=== PATIENT | female | born 1950 | race Caucasian/White ===

== ENCOUNTER 2017-11-26 23:08 | Inpatient (IN) | payer OTHER, MEDICARE ==
[~2017-11-26] VITALS: Ht 170.2 cm; Wt 73.9 kg
[~2017-11-26 23:08] MED LIST: ASPI-1153 PO; LISI40TA4 PO; VERA120C2 PO
[2017-11-26 23:10] VITALS: BP_SYST 189
[2017-11-26] MEDS ORDERED: NACL 0.9% 1,000 ML IV ONE (23:30)
[2017-11-26 23:54] LABS: BASOPHILS # (AUTO) 0.5 K/uL (0.0-0.2); EOSINOPHILS # (AUTO) 0.1 K/uL (0.0-0.4); EOSINOPHILS % (AUTO) 0.9 % (0.0-4.0); HEMOGLOBIN 8.7 g/dL (12.0-16.0); LYMPHOCYTES # (AUTO) 1.1 K/uL (1.0-5.5); LYMPHOCYTES % (AUTO) 8.1 % (20.5-51.5); MEAN CORPUSCULAR HEMOGLOBIN 23 pg (27-31); MEAN CORPUSCULAR HGB CONC 31 % (32-36); MEAN CORPUSCULAR VOLUME 75 fL (79.0-98.0); MONOCYTES # (AUTO) 0.4 K/uL (0.0-1.0); MONOCYTES % (AUTO) 3.2 % (1.7-9.3); NEUTROPHILS # (AUTO) 10.9 K/uL (1.8-7.7); NEUTROPHILS % (AUTO) 83.8 % (40.0-70.0); PLATELET COUNT (AUTO) 249 K/uL (130-430); RED BLOOD CELL COUNT(AUTO) 3.74 MIL/uL (4.2-6.2); RED CELL DISTRIBUTION WIDTH 20.8 % (9.0-15.0)
[2017-11-27] VITALS (8 sets, daily range): BP systolic 121–156
[2017-11-27 00:04] LABS: ANION GAP 7 (5-15); CALCIUM 10.1 mg/dL (8.4-11.0); CHLORIDE 109 mmol/L (98-107); CREATININE 0.78 mg/dL (0.55-1.30); GLUCOSE 249 mg/dL (70-99); POTASSIUM 5.2 mmol/L (3.5-5.1); SODIUM SERUM 146 mmol/L (136-145); UREA NITROGEN, BLOOD 60 mg/dL (8-21)
[2017-11-27 00:09] LABS: ALANINE AMINOTRANSFERASE 36 U/L (12-78); ASPARTATE AMINOTRANSFERASE 33 U/L (10-37); INR 1.1 (0.8-1.2); TOTAL BILIRUBIN 0.4 mg/dL (0.0-1.0)
[2017-11-27 00:26] LABS: GFR AFRICAN AMERICAN 95 mL/min (>90)
[2017-11-27] MEDS ORDERED: levETIRAcetam 1,000 MG IV BAG 100 ML IV ONE (00:30)
[2017-11-27] MEDS ORDERED: ASPIRIN 81 MG TAB.CHEW PO ONE (00:30)
[2017-11-27] MEDS ORDERED: PIPERACILLIN/TAZO 3.375 GM in NS 50 ML IV ONE (00:30)
[2017-11-27] MEDS ORDERED: NACL 0.9% 2,000 ML IV ONE (00:30)
[2017-11-27 00:36] LABS: BILIRUBIN,URINE NEGATIVE (NEGATIVE); BLOOD, URINE NEGATIVE (NEGATIVE); CLARITY/URINE CLEAR (CLEAR); COLOR,URINE YELLOW (YELLOW); GLUCOSE,URINE TRACE (NEGATIVE); KETONES,URINE NEGATIVE (NEGATIVE); LEUKOCYTE ESTERASE ,URINE 2+ (NEGATIVE); NITRITE, URINE POSITIVE (NEGATIVE); PROTEIN URINE 2+ (NEGATIVE); UROBILINOGEN,URINE 0.2 (0.2-1.0)
[2017-11-27] MEDS ORDERED: PIPERACILLIN/TAZOBACTAM 3.375 GM/VIAL (ZOSYN) IV ONE (00:44)
[2017-11-27] MEDS ORDERED: LEVOFLOXACIN 500 MG/D5W 100 ML IV ONE (00:45)
[2017-11-27 00:47] LABS: BACTERIA,URINE MANY /HPF (None Seen); RBC,URINE 0-3 /HPF (0-3); WBC,URINE >100 /HPF (0-3)
[2017-11-27 00:48] LABS: URINE AMORPHOUS URATE 1+ /HPF (None Seen)
[2017-11-27] MEDS ORDERED: NACL 0.9% 1,000 ML IV SCH (00:54)
[2017-11-27] MEDS ORDERED: LORazepam 2 MG/ML VIAL IVP PRN (01:00)
[2017-11-27] MEDS ORDERED: SODIUM POLYSTYRENE SULFONATE 15 GM/60 ML UDBTL GT ONE (01:00)
[2017-11-27] MEDS ORDERED: CAT.1 PO (01:09)
[2017-11-27] MEDS ORDERED: ATRMDI INH (01:09)
[2017-11-27] MEDS ORDERED: [UNRECOGNIZED DRUG - OTHER] (01:09)
[2017-11-27] MEDS ORDERED: NUT.237L30 PO (01:09)
[2017-11-27] MEDS ORDERED: FER300L GT (01:11)
[2017-11-27] MEDS ORDERED: COLL100 GT (01:11)
[2017-11-27] MEDS ORDERED: AMIN30LI25 GT (01:29)
[2017-11-27] MEDS ORDERED: PRO40 GT (01:29)
[2017-11-27] MEDS ORDERED: ASCO500S9 GT (01:29)
[2017-11-27] MEDS ORDERED: LEVE100S GT (01:29)
[2017-11-27] MEDS ORDERED: REGL10 PO (01:29)
[2017-11-27] MEDS ORDERED: HYDR-4272 GT (01:29)
[2017-11-27] MEDS ORDERED: LACT10SO6 GT (01:29)
[2017-11-27] MEDS ORDERED: CALC-1094 GT (01:29)
[2017-11-27] MEDS ORDERED: ALBU2.5V7 INH (01:29)
[2017-11-27] MEDS ORDERED: ZINC220T GT (01:29)
[2017-11-27] MEDS ORDERED: CALC117719 PO (01:29)
[2017-11-27] MEDS ORDERED: MULT9LIQ6 GT (01:29)
[2017-11-27] MEDS ORDERED: ARGI1POW17 GT (01:29)
[2017-11-27] MEDS ORDERED: ACET650S22 PO (01:29)
[2017-11-27 05:53] LABS: ACETONE, SERUM NEGATIVE (NEGATIVE)
[2017-11-27] MEDS ORDERED: NS IV ONE (06:30)
[2017-11-27] MEDS ORDERED: LEVETIRACETAM IV ONE (06:30)
[2017-11-27] MEDS: INSULIN REGULAR, HUMAN 100 UNITS/ML, 10 ML VIAL (novoLIN R) SUBCUT PRN ×3 (12:53→23:17)
[2017-11-27] MEDS ORDERED: HYDROcodone/ACETAMIN 5-325 MG TAB (NORCO/ VICODIN) GT PRN (17:00)
[2017-11-27] MEDS ORDERED: DOCUSATE SODIUM 100 MG/10 ML UDC GT PRN (17:00)
[2017-11-27] MEDS ORDERED: ACETAMINOPHEN 650 MG/20.3 ML UDC PO PRN (17:00)
[2017-11-27] MEDS: FERROUS SULFATE 300 MG/5 ML UDC GT SCH (17:25)
[2017-11-27] MEDS: LevETIRAcetam 100 MG/ML UDC ORAL LIQUID GT SCH ×2 (17:26→22:55)
[2017-11-27 17:54] LABS: CALCIUM 8.6 mg/dL (8.4-11.0); CREATININE 0.7 mg/dL (0.55-1.30); POTASSIUM 3.4 mmol/L (3.5-5.1)
[2017-11-27 18:03] LABS: TOTAL BILIRUBIN 0.3 mg/dL (0.0-1.0)
[2017-11-27 18:04] LABS: ALBUMIN 2.4 g/dL (3.4-4.8)
[2017-11-27 18:08] LABS: HEMATOCRIT 26.1 % (36-48); MEAN CORPUSCULAR HEMOGLOBIN 23 pg (27-31); MEAN CORPUSCULAR HGB CONC 31 % (32-36); MEAN CORPUSCULAR VOLUME 76 fL (79.0-98.0); PLATELET COUNT (AUTO) 149 K/uL (130-430); RED BLOOD CELL COUNT(AUTO) 3.45 MIL/uL (4.2-6.2); RED CELL DISTRIBUTION WIDTH 20.8 % (9.0-15.0); WHITE BLOOD COUNT (AUTO) 10.2 K/uL (4.8-10.8)
[2017-11-27 18:09] LABS: BASOPHILS % (AUTO) 0.4 % (0.0-2.0); EOSINOPHILS # (AUTO) 0.2 K/uL (0.0-0.4); EOSINOPHILS % (AUTO) 1.7 % (0.0-4.0); LYMPHOCYTES # (AUTO) 0.9 K/uL (1.0-5.5); LYMPHOCYTES % (AUTO) 8.7 % (20.5-51.5); MONOCYTES # (AUTO) 0.4 K/uL (0.0-1.0); MONOCYTES % (AUTO) 4.3 % (1.7-9.3); NEUTROPHILS # (AUTO) 8.7 K/uL (1.8-7.7); NEUTROPHILS % (AUTO) 84.9 % (40.0-70.0)
[2017-11-27] MEDS ORDERED: POTASSIUM CHLORIDE 20 MEQ/PKT PACKET GT SCH (18:30)
[2017-11-27] MEDS: LR 1,000 ML IV SCH (18:35)
[2017-11-27] MEDS: ALBUTEROL SULFATE 0.083% 2.5 MG/3 ML VIAL.NEB INH SCH (19:37)
[2017-11-27] MEDS ORDERED: [UNRECOGNIZED DRUG - OTHER] GT SCH (21:00)
[2017-11-27] MEDS ORDERED: PIPERACILLIN/TAZOBACTAM 2.25 GM VIAL IV ONE (21:15)
[2017-11-27] MEDS: PIPERACILLIN/TAZO 2.25G/DEX-IS 50 ML IV SCH (21:30)
[2017-11-27] MEDS: LACTOBACILLUS RHAMNOSUS GG 1 CAP CAPSULE GT SCH (22:58)
[2017-11-27] MEDS: CALCIUM CARBONATE/VITAMIN D3 1 TAB TABLET GT SCH (22:58)
[2017-11-27] MEDS: PANTOPRAZOLE SODIUM 40 MG/VIAL (PROTONIX) IVP SCH (22:58)
[2017-11-27] MEDS: ASCORBIC ACID 500 MG TABLET GT SCH (22:58)
[2017-11-27] MEDS: LACTULOSE 20 GM/30 ML UDC GT SCH (22:59)
[2017-11-27] MEDS: METOCLOPRAMIDE HCL 10 MG/10 ML UDC PO SCH (22:59)
[2017-11-28] MEDS: PIPERACILLIN/TAZO 2.25G/DEX-IS 50 ML IV SCH ×5 (00:20→23:00)
[2017-11-28] MEDS: ALBUTEROL SULFATE 0.083% 2.5 MG/3 ML VIAL.NEB INH SCH ×4 (01:02→19:50)
[2017-11-28] MEDS: LR 1,000 ML IV SCH ×2 (06:18→15:06)
[2017-11-28] MEDS: INSULIN REGULAR, HUMAN 100 UNITS/ML, 10 ML VIAL (novoLIN R) SUBCUT PRN ×4 (06:34→21:49)
[2017-11-28 07:46] LABS: BASOPHILS # (AUTO) 0.1 K/uL (0.0-0.2); BASOPHILS % (AUTO) 0.6 % (0.0-2.0); EOSINOPHILS # (AUTO) 0.2 K/uL (0.0-0.4); EOSINOPHILS % (AUTO) 2.1 % (0.0-4.0); HEMATOCRIT 25.2 % (36-48); HEMOGLOBIN 7.6 g/dL (12.0-16.0); LYMPHOCYTES # (AUTO) 1.1 K/uL (1.0-5.5); LYMPHOCYTES % (AUTO) 13.1 % (20.5-51.5); MEAN CORPUSCULAR HEMOGLOBIN 23 pg (27-31); MEAN CORPUSCULAR HGB CONC 30 % (32-36); MEAN CORPUSCULAR VOLUME 76 fL (79.0-98.0); MONOCYTES # (AUTO) 0.3 K/uL (0.0-1.0); MONOCYTES % (AUTO) 3.6 % (1.7-9.3); NEUTROPHILS # (AUTO) 6.9 K/uL (1.8-7.7); NEUTROPHILS % (AUTO) 80.6 % (40.0-70.0); RED BLOOD CELL COUNT(AUTO) 3.33 MIL/uL (4.2-6.2); RED CELL DISTRIBUTION WIDTH 20.7 % (9.0-15.0); WHITE BLOOD COUNT (AUTO) 8.6 K/uL (4.8-10.8)
[2017-11-28 08:28] LABS: INR 1.1 (0.8-1.2); PROTHROMBIN TIME 11.1 SECS (9.5-12.5)
[2017-11-28 08:32] LABS: ALBUMIN 2.4 g/dL (3.4-4.8); CREATININE 0.7 mg/dL (0.55-1.30); FREE T4 (FREE THYROXINE) 0.5 ng/dL (0.6-1.6); POTASSIUM 3.7 mmol/L (3.5-5.1); THYROID STIMULATING HORMONE 2.07 uIu/mL (0.34-4.82); TOTAL BILIRUBIN 0.3 mg/dL (0.0-1.0)
[2017-11-28 10:11] VITALS: BP_SYST 166
[2017-11-28] MEDS: LACTOBACILLUS RHAMNOSUS GG 1 CAP CAPSULE GT SCH ×2 (10:14→21:44)
[2017-11-28] MEDS: ASCORBIC ACID 500 MG TABLET GT SCH ×2 (10:14→21:44)
[2017-11-28] MEDS: PANTOPRAZOLE GRANULES PACKET 40 MG GT SCH (10:14)
[2017-11-28] MEDS: PANTOPRAZOLE SODIUM 40 MG/VIAL (PROTONIX) IVP SCH ×2 (10:14→21:44)
[2017-11-28] MEDS: METOCLOPRAMIDE HCL 10 MG/10 ML UDC PO SCH ×3 (10:14→21:43)
[2017-11-28] MEDS: LACTULOSE 20 GM/30 ML UDC GT SCH ×2 (10:14→21:43)
[2017-11-28] MEDS: CALCIUM CARBONATE/VITAMIN D3 1 TAB TABLET GT SCH ×2 (10:14→21:44)
[2017-11-28] MEDS: MULTIVIT-MINERALS/FERROUS GLUC 15 ML UDC GT SCH (10:19)
[2017-11-28] MEDS: LevETIRAcetam 100 MG/ML UDC ORAL LIQUID GT SCH ×2 (10:21→23:01)
[2017-11-28 11:16] LABS: PLATELET COUNT (AUTO) 174 K/uL (130-430)
[2017-11-28] MEDS: FERROUS SULFATE 300 MG/5 ML UDC GT SCH ×2 (11:30→17:55)
[2017-11-28 12:39] VITALS: BP_SYST 143
[2017-11-28 14:28] LABS: TOTAL IRON BIND. CAPACITY 150 ug/dL (250-450)
[2017-11-28] MEDS ORDERED: EPOETIN ALFA 4,000 UNITS/ML VIAL SUBCUT ONE (17:00)
[2017-11-28 17:03] VITALS: BP_SYST 177
[2017-11-28] MEDS: KCL 20 mEq in 0.45% NS 1000 mL 1,000 ML IV SCH (17:55)
[2017-11-28] MEDS: SOD FERRIC GLUC COMPLEX/SUC 125 MG in NS 100 ML IV SCH (17:56)
[2017-11-28] MEDS: MUPIROCIN 2% TOPICAL OINTMENT 22 GM NS SCH ×2 (17:56→23:04)
[2017-11-28 20:00] VITALS: BP_SYST 148
[2017-11-29] MEDS: ALBUTEROL SULFATE 0.083% 2.5 MG/3 ML VIAL.NEB INH SCH ×4 (00:56→20:02)
[2017-11-29 01:16] VITALS: BP_SYST 161
[2017-11-29 06:31] LABS: BASOPHILS # (AUTO) 0.1 K/uL (0.0-0.2); BASOPHILS % (AUTO) 0.6 % (0.0-2.0); EOSINOPHILS # (AUTO) 0.2 K/uL (0.0-0.4); EOSINOPHILS % (AUTO) 2.6 % (0.0-4.0); HEMATOCRIT 26.5 % (36-48); HEMOGLOBIN 8.3 g/dL (12.0-16.0); LYMPHOCYTES # (AUTO) 1.3 K/uL (1.0-5.5); LYMPHOCYTES % (AUTO) 14.9 % (20.5-51.5); MEAN CORPUSCULAR HEMOGLOBIN 23 pg (27-31); MEAN CORPUSCULAR HGB CONC 31 % (32-36); MEAN CORPUSCULAR VOLUME 75 fL (79.0-98.0); MONOCYTES # (AUTO) 0.4 K/uL (0.0-1.0); MONOCYTES % (AUTO) 4.9 % (1.7-9.3); NEUTROPHILS # (AUTO) 6.4 K/uL (1.8-7.7); PLATELET COUNT (AUTO) 137 K/uL (130-430); RED BLOOD CELL COUNT(AUTO) 3.55 MIL/uL (4.2-6.2); WHITE BLOOD COUNT (AUTO) 8.4 K/uL (4.8-10.8)
[2017-11-29 06:45] LABS: CALCIUM 9.1 mg/dL (8.4-11.0); CREATININE 0.69 mg/dL (0.55-1.30); POTASSIUM 3.9 mmol/L (3.5-5.1)
[2017-11-29] MEDS: PIPERACILLIN/TAZO 2.25G/DEX-IS 50 ML IV SCH ×3 (06:55→17:22)
[2017-11-29] MEDS: FERROUS SULFATE 300 MG/5 ML UDC GT SCH ×3 (06:55→16:46)
[2017-11-29] MEDS: INSULIN REGULAR, HUMAN 100 UNITS/ML, 10 ML VIAL (novoLIN R) SUBCUT PRN ×4 (07:01→21:16)
[2017-11-29 07:37] LABS: RED CELL DISTRIBUTION WIDTH 20.3 % (9.0-15.0)
[2017-11-29 07:45] VITALS: BP_SYST 123
[2017-11-29] MEDS: MULTIVIT-MINERALS/FERROUS GLUC 15 ML UDC GT SCH (08:10)
[2017-11-29] MEDS: LACTOBACILLUS RHAMNOSUS GG 1 CAP CAPSULE GT SCH ×2 (08:10→21:17)
[2017-11-29] MEDS: ASCORBIC ACID 500 MG TABLET GT SCH ×2 (08:11→21:17)
[2017-11-29] MEDS: LACTULOSE 20 GM/30 ML UDC GT SCH ×2 (08:11→21:17)
[2017-11-29] MEDS: PANTOPRAZOLE SODIUM 40 MG/VIAL (PROTONIX) IVP SCH (08:11)
[2017-11-29] MEDS: CALCIUM CARBONATE/VITAMIN D3 1 TAB TABLET GT SCH ×2 (08:11→21:17)
[2017-11-29] MEDS: METOCLOPRAMIDE HCL 10 MG/10 ML UDC PO SCH ×3 (08:11→21:17)
[2017-11-29] MEDS: MUPIROCIN 2% TOPICAL OINTMENT 22 GM NS SCH ×2 (08:11→21:18)
[2017-11-29] MEDS: LevETIRAcetam 100 MG/ML UDC ORAL LIQUID GT SCH ×2 (08:12→21:19)
[2017-11-29] MEDS: PANTOPRAZOLE GRANULES PACKET 40 MG GT SCH (09:00)
[2017-11-29 09:24] LABS: RETICULOCYTE COUNT 0.9 % (0.5-1.5)
[2017-11-29] MEDS: KCL 20 mEq in 0.45% NS 1000 mL 1,000 ML IV SCH ×2 (09:48→22:18)
[2017-11-29] MEDS: BALSAM PERU/CASTOR OIL 60 GM OINT...G. TP SCH (09:48)
[2017-11-29 12:00] VITALS: BP_SYST 112
[2017-11-29 16:00] VITALS: BP_SYST 116
[2017-11-29] MEDS: SOD FERRIC GLUC COMPLEX/SUC 125 MG in NS 100 ML IV SCH (16:24)
[2017-11-29 20:00] VITALS: BP_SYST 139
[2017-11-30] MEDS: PIPERACILLIN/TAZO 2.25G/DEX-IS 50 ML IV SCH ×5 (00:08→20:19)
[2017-11-30 00:47] VITALS: BP_SYST 132
[2017-11-30] MEDS: ALBUTEROL SULFATE 0.083% 2.5 MG/3 ML VIAL.NEB INH SCH ×4 (00:51→19:26)
[2017-11-30] MEDS: FERROUS SULFATE 300 MG/5 ML UDC GT SCH ×3 (06:35→17:30)
[2017-11-30] MEDS: INSULIN REGULAR, HUMAN 100 UNITS/ML, 10 ML VIAL (novoLIN R) SUBCUT PRN ×4 (06:37→22:23)
[2017-11-30 09:23] VITALS: BP_SYST 132
[2017-11-30] MEDS: METOCLOPRAMIDE HCL 10 MG/10 ML UDC PO SCH ×3 (09:24→22:10)
[2017-11-30] MEDS: KCL 20 mEq in 0.45% NS 1000 mL 1,000 ML IV SCH (09:24)
[2017-11-30] MEDS: MULTIVIT-MINERALS/FERROUS GLUC 15 ML UDC GT SCH (09:25)
[2017-11-30] MEDS: LACTULOSE 20 GM/30 ML UDC GT SCH ×2 (09:25→22:10)
[2017-11-30] MEDS: LevETIRAcetam 100 MG/ML UDC ORAL LIQUID GT SCH ×2 (09:25→22:11)
[2017-11-30] MEDS: PANTOPRAZOLE GRANULES PACKET 40 MG GT SCH ×2 (09:26→22:09)
[2017-11-30] MEDS: CALCIUM CARBONATE/VITAMIN D3 1 TAB TABLET GT SCH ×2 (09:26→22:10)
[2017-11-30] MEDS: BALSAM PERU/CASTOR OIL 60 GM OINT...G. TP SCH (09:26)
[2017-11-30] MEDS: LACTOBACILLUS RHAMNOSUS GG 1 CAP CAPSULE GT SCH ×2 (09:26→22:10)
[2017-11-30] MEDS: ASCORBIC ACID 500 MG TABLET GT SCH ×2 (09:26→22:09)
[2017-11-30] MEDS: MUPIROCIN 2% TOPICAL OINTMENT 22 GM NS SCH ×2 (09:26→22:10)
[2017-11-30 10:18] VITALS: BP_SYST 184
[2017-11-30] MEDS: cloNIDine HCL 0.1 MG TABLET PO PRN (10:22)
[2017-11-30] MEDS ORDERED: FUROSEMIDE 20 MG/2 ML VIAL IVP ONE (10:45)
[2017-11-30 12:01] VITALS: BP_SYST 150
[2017-11-30 12:07] LABS: FOLATE (FOLIC ACID) 19.8 ng/mL (>3.0)
[2017-11-30 16:35] VITALS: BP_SYST 129
[2017-11-30] MEDS: SOD FERRIC GLUC COMPLEX/SUC 125 MG in NS 100 ML IV SCH (17:30)
[2017-11-30] MEDS ORDERED: IPRATROPIUM/ALBUTEROL SULFATE 3 ML AMPUL.NEB (DUONEB) INH PRN (21:30)
[2017-11-30 23:33] VITALS: BP_SYST 122
[2017-12-01] MEDS: ALBUTEROL SULFATE 0.083% 2.5 MG/3 ML VIAL.NEB INH SCH ×3 (00:45→19:00)
[2017-12-01] MEDS: PIPERACILLIN/TAZO 2.25G/DEX-IS 50 ML IV SCH ×5 (01:25→23:44)
[2017-12-01] MEDS: FERROUS SULFATE 300 MG/5 ML UDC GT SCH ×3 (06:02→18:20)
[2017-12-01 06:50] LABS: CREATININE 0.67 mg/dL (0.55-1.30)
[2017-12-01 07:44] LABS: BASOPHILS % (AUTO) 0.5 % (0.0-2.0); EOSINOPHILS # (AUTO) 0.3 K/uL (0.0-0.4); EOSINOPHILS % (AUTO) 3.3 % (0.0-4.0); HEMATOCRIT 26.7 % (36-48); LYMPHOCYTES # (AUTO) 1.3 K/uL (1.0-5.5); LYMPHOCYTES % (AUTO) 16.7 % (20.5-51.5); MEAN CORPUSCULAR HEMOGLOBIN 22 pg (27-31); MEAN CORPUSCULAR HGB CONC 30 % (32-36); MEAN CORPUSCULAR VOLUME 74 fL (79.0-98.0); MONOCYTES # (AUTO) 0.5 K/uL (0.0-1.0); MONOCYTES % (AUTO) 6.3 % (1.7-9.3); NEUTROPHILS # (AUTO) 5.6 K/uL (1.8-7.7); PLATELET COUNT (AUTO) 197 K/uL (130-430); RED BLOOD CELL COUNT(AUTO) 3.59 MIL/uL (4.2-6.2); RED CELL DISTRIBUTION WIDTH 20.5 % (9.0-15.0); WHITE BLOOD COUNT (AUTO) 7.7 K/uL (4.8-10.8)
[2017-12-01] MEDS: ASCORBIC ACID 500 MG TABLET GT SCH ×2 (08:11→21:32)
[2017-12-01] MEDS: LACTULOSE 20 GM/30 ML UDC GT SCH ×2 (08:11→21:33)
[2017-12-01] MEDS: CALCIUM CARBONATE/VITAMIN D3 1 TAB TABLET GT SCH ×2 (08:11→21:32)
[2017-12-01] MEDS: METOCLOPRAMIDE HCL 10 MG/10 ML UDC PO SCH ×3 (08:11→21:33)
[2017-12-01] MEDS: PANTOPRAZOLE GRANULES PACKET 40 MG GT SCH (08:11)
[2017-12-01] MEDS: MUPIROCIN 2% TOPICAL OINTMENT 22 GM NS SCH ×2 (08:12→21:35)
[2017-12-01] MEDS: LACTOBACILLUS RHAMNOSUS GG 1 CAP CAPSULE GT SCH ×2 (08:12→21:32)
[2017-12-01] MEDS: MULTIVIT-MINERALS/FERROUS GLUC 15 ML UDC GT SCH (08:13)
[2017-12-01] MEDS: LevETIRAcetam 100 MG/ML UDC ORAL LIQUID GT SCH ×2 (08:13→21:36)
[2017-12-01 08:57] VITALS: BP_SYST 157
[2017-12-01] MEDS: IPRATROPIUM/ALBUTEROL SULFATE 3 ML AMPUL.NEB (DUONEB) INH SCH ×3 (09:38→20:50)
[2017-12-01 11:57] LABS: NEUTROPHILS % (AUTO) 73.2 % (40.0-70.0)
[2017-12-01] MEDS: BALSAM PERU/CASTOR OIL 60 GM OINT...G. TP SCH (11:58)
[2017-12-01 12:00] VITALS: BP_SYST 137
[2017-12-01] MEDS: INSULIN REGULAR, HUMAN 100 UNITS/ML, 10 ML VIAL (novoLIN R) SUBCUT PRN ×3 (12:01→22:02)
[2017-12-01 16:00] VITALS: BP_SYST 139
[2017-12-01 20:00] VITALS: BP_SYST 137
[2017-12-02] VITALS (7 sets, daily range): BP systolic 125–177
[2017-12-02] MEDS: ALBUTEROL SULFATE 0.083% 2.5 MG/3 ML VIAL.NEB INH SCH ×4 (01:00→19:47)
[2017-12-02] MEDS: PIPERACILLIN/TAZO 2.25G/DEX-IS 50 ML IV SCH ×4 (05:29→23:53)
[2017-12-02] MEDS: FERROUS SULFATE 300 MG/5 ML UDC GT SCH ×3 (06:10→17:48)
[2017-12-02] MEDS: INSULIN REGULAR, HUMAN 100 UNITS/ML, 10 ML VIAL (novoLIN R) SUBCUT PRN ×4 (06:21→21:19)
[2017-12-02 06:48] LABS: CALCIUM 9.3 mg/dL (8.4-11.0); CREATININE 0.77 mg/dL (0.55-1.30); POTASSIUM 4.2 mmol/L (3.5-5.1)
[2017-12-02 07:10] LABS: BASOPHILS % (AUTO) 0.3 % (0.0-2.0); EOSINOPHILS # (AUTO) 0.2 K/uL (0.0-0.4); EOSINOPHILS % (AUTO) 2.6 % (0.0-4.0); HEMATOCRIT 25.3 % (36-48); LYMPHOCYTES # (AUTO) 1.3 K/uL (1.0-5.5); LYMPHOCYTES % (AUTO) 15.6 % (20.5-51.5); MEAN CORPUSCULAR HEMOGLOBIN 23 pg (27-31); MEAN CORPUSCULAR HGB CONC 32 % (32-36); MEAN CORPUSCULAR VOLUME 73 fL (79.0-98.0); MONOCYTES # (AUTO) 0.4 K/uL (0.0-1.0); NEUTROPHILS # (AUTO) 6.7 K/uL (1.8-7.7); NEUTROPHILS % (AUTO) 76.5 % (40.0-70.0); PLATELET COUNT (AUTO) 186 K/uL (130-430); RED BLOOD CELL COUNT(AUTO) 3.48 MIL/uL (4.2-6.2); RED CELL DISTRIBUTION WIDTH 20.1 % (9.0-15.0); WHITE BLOOD COUNT (AUTO) 8.6 K/uL (4.8-10.8)
[2017-12-02] MEDS: METOCLOPRAMIDE HCL 10 MG/10 ML UDC PO SCH ×3 (08:52→21:08)
[2017-12-02] MEDS: cloNIDine HCL 0.1 MG TABLET PO PRN (08:52)
[2017-12-02] MEDS: LACTULOSE 20 GM/30 ML UDC GT SCH ×2 (08:52→21:08)
[2017-12-02] MEDS: ASCORBIC ACID 500 MG TABLET GT SCH ×2 (08:52→21:08)
[2017-12-02] MEDS: LACTOBACILLUS RHAMNOSUS GG 1 CAP CAPSULE GT SCH ×2 (08:52→21:08)
[2017-12-02] MEDS: PANTOPRAZOLE GRANULES PACKET 40 MG GT SCH (08:52)
[2017-12-02] MEDS: LevETIRAcetam 100 MG/ML UDC ORAL LIQUID GT SCH ×2 (08:53→21:07)
[2017-12-02] MEDS: MUPIROCIN 2% TOPICAL OINTMENT 22 GM NS SCH ×2 (08:53→21:09)
[2017-12-02] MEDS: CALCIUM CARBONATE/VITAMIN D3 1 TAB TABLET GT SCH ×2 (08:53→21:08)
[2017-12-02] MEDS: BALSAM PERU/CASTOR OIL 60 GM OINT...G. TP SCH (08:54)
[2017-12-02] MEDS: MULTIVIT-MINERALS/FERROUS GLUC 15 ML UDC GT SCH (08:55)
[2017-12-02] MEDS: IPRATROPIUM/ALBUTEROL SULFATE 3 ML AMPUL.NEB (DUONEB) INH SCH ×2 (09:00→13:10)
[2017-12-02 15:58] LABS: PROTHROMBIN TIME 10.6 SECS (9.5-12.5)
[2017-12-03] MEDS: ALBUTEROL SULFATE 0.083% 2.5 MG/3 ML VIAL.NEB INH SCH ×3 (00:42→13:00)
[2017-12-03 01:30] VITALS: BP_SYST 127
[2017-12-03] MEDS: PIPERACILLIN/TAZO 2.25G/DEX-IS 50 ML IV SCH ×3 (06:38→17:15)
[2017-12-03] MEDS: FERROUS SULFATE 300 MG/5 ML UDC GT SCH ×3 (06:39→17:11)
[2017-12-03] MEDS: INSULIN REGULAR, HUMAN 100 UNITS/ML, 10 ML VIAL (novoLIN R) SUBCUT PRN ×3 (07:03→17:37)
[2017-12-03] MEDS: IPRATROPIUM/ALBUTEROL SULFATE 3 ML AMPUL.NEB (DUONEB) INH SCH ×3 (07:13→15:15)
[2017-12-03 08:02] VITALS: BP_SYST 147
[2017-12-03] MEDS: LACTOBACILLUS RHAMNOSUS GG 1 CAP CAPSULE GT SCH (09:40)
[2017-12-03] MEDS: METOCLOPRAMIDE HCL 10 MG/10 ML UDC PO SCH ×2 (09:40→15:51)
[2017-12-03] MEDS: PANTOPRAZOLE GRANULES PACKET 40 MG GT SCH (09:40)
[2017-12-03] MEDS: CALCIUM CARBONATE/VITAMIN D3 1 TAB TABLET GT SCH (09:40)
[2017-12-03] MEDS: ASCORBIC ACID 500 MG TABLET GT SCH (09:40)
[2017-12-03] MEDS: LACTULOSE 20 GM/30 ML UDC GT SCH (09:41)
[2017-12-03] MEDS: MUPIROCIN 2% TOPICAL OINTMENT 22 GM NS SCH (09:41)
[2017-12-03] MEDS: MULTIVIT-MINERALS/FERROUS GLUC 15 ML UDC GT SCH (09:42)
[2017-12-03] MEDS: LevETIRAcetam 100 MG/ML UDC ORAL LIQUID GT SCH (09:42)
[2017-12-03 12:02] VITALS: BP_SYST 116
[2017-12-03] MEDS ORDERED: PIPE3.379 IV (12:16)
[2017-12-03] MEDS: BALSAM PERU/CASTOR OIL 60 GM OINT...G. TP SCH (15:53)
[2017-12-03 15:56] VITALS: BP_SYST 116
[2017-12-03 16:02] VITALS: BP_SYST 136
== END 2017-12-03 18:05 | disposition home health service (06) | DRG 871 ==
LOC: SED 23:08 → STU 11-27 00:54
PROVIDERS: ADMIT Internal Medicine; ATTEND Internal Medicine
PROC: 02HV33Z Insertion of Infusion Device into Superior Vena Cava, Percutaneous Approach (ICD-10-PCS; principal; 2017-12-03)
DX: A41.9 Sepsis, unspecified organism (principal); L89.154 Pressure ulcer of sacral region, stage 4; G93.41 Metabolic encephalopathy; N17.0 Acute kidney failure with tubular necrosis; E43 Unspecified severe protein-calorie malnutrition; N39.0 Urinary tract infection, site not specified; I69.354 Hemiplegia and hemiparesis following cerebral infarction affecting left non-dominant side; E87.0 Hyperosmolality and hypernatremia; I10 Essential (primary) hypertension; E78.5 Hyperlipidemia, unspecified; E87.5 Hyperkalemia; D64.9 Anemia, unspecified; E11.9 Type 2 diabetes mellitus without complications; R13.10 Dysphagia, unspecified; B96.4 Proteus (mirabilis) (morganii) as the cause of diseases classified elsewhere; B96.20 Unspecified Escherichia coli [E. coli] as the cause of diseases classified elsewhere; E86.0 Dehydration; N31.9 Neuromuscular dysfunction of bladder, unspecified; G40.909 Epilepsy, unspecified, not intractable, without status epilepticus; Z93.1 Gastrostomy status; Z93.3 Colostomy status; Z79.899 Other long term (current) drug therapy; Z90.49 Acquired absence of other specified parts of digestive tract; I69.391 Dysphagia following cerebral infarction; Z68.25 Body mass index [BMI] 25.0-25.9, adult; Z74.01 Bed confinement status
CPT/HCPCS: 36415; 70450-TC; 71045; 80048; 80053; 80061; 81000-TC; 82009-TC; 82140-TC; 82272; 82607; 82728; 82746; 82962; 83010; 83036; 83540-TC; 83550-TC; 83605; 83880; 84100-TC; 84439; 84443-TC; 84484; 85025; 85044-TC; 85610-TC; 85730-TC; 86886; 86900; 86901; 87040-TC; 87081; 87086; 87186-TC; 90656; 93005; 93306; 94640; 94760; 95816; 96361; 96365; 96367; 97110-GP; 97530-GP; 99285; A5061; C1751; C9113; J0885; J1815; J1940; J1953; J1956; J2543; J2916; J3480; J7030; J7120; J7613; J7620; J8597

== ENCOUNTER 2018-01-15 19:27 | Inpatient (IN) | payer BC, MEDICARE ==
[~2018-01-15] VITALS: Ht 160 cm; Wt 68.9 kg
[~2018-01-15 19:27] MED LIST changes: +ACET650S22 PO; +ALBU2.5V7 INH; +AMIN30LI25 GT; +ARGI1POW17 GT; +ASCO500S9 GT; -ASPI-1153 PO; +ATRMDI INH; +CALC-1094 GT; +CALC117719 PO; +CAT.1 PO; +COLL100 GT; +FER300L GT; +HYDR-4272 GT; +LACT10SO6 GT; +LEVE100S GT; -LISI40TA4 PO; +MULT9LIQ6 GT; +NUT.237L30 PO; +PIPE3.379 IV; +PRO40 GT; +REGL10 PO; -VERA120C2 PO; +ZINC220T GT; +[UNRECOGNIZED DRUG - OTHER]
[2018-01-15 19:30] VITALS: BP_SYST 91
--- NOTE | 2018-01-15 19:30 | NUR ---
Placed in room 01 . Placed on chain person, blood pressure machine and pulse oximeter. To gown for exam. Side rails up.
--- NOTE | 2018-01-15 19:30 | NUR ---
Pt BIB ALS, placed to ER bed 1, to gown, to cardiac monitor technician with pulse oximetry. Pt AAO to self, non-verbal, does not follow commands. Daughter present and is primary multi care technician, states that 1.5 hours after 2 cans of GT feedings, pt vomited about half a can, then began to choke and experience SOB. Daughter states that she attempted to suction pt as she was unable to cough up rest of feeding. Pt tachypeic with abdominal and accessory muscle usage. BBS even, diminished to bases, coarse. Daughter states that pt has been in and out of consciousness for the past couple of weeks, but prior to that, she was alert and talkative, able to state her name, address, and SSN. Pt has a hx of UTI x 1.5 months and was hospitalized 12/26/17 x 4 days. Pt arrives with G-tube in place, no s/s infection to site. Colostomy with bag intact, soft green-brown stool noted, stoma pink and moist, no s/s infection to site. Pt also has indwelling catheter that has been in place x 2 weeks, ~1200 mL clear hiram urine to bag. Daughter states that pt has had F/Cs over the past 2 years.
--- NOTE | 2018-01-15 19:44 | NUR ---
Dr. Srivastava at bedside.
[2018-01-15] MEDS ORDERED: NACL 0.9% 1,000 ML IV ONE ×3 (20:00→22:30)
[2018-01-15 20:25] LABS: CALCIUM 11.4 mg/dL (8.4-11.0); CREATININE 1.84 mg/dL (0.55-1.30); POTASSIUM 4.4 mmol/L (3.5-5.1)
[2018-01-15 20:29] LABS: ALBUMIN 2.6 g/dL (3.4-4.8); TOTAL BILIRUBIN 0.4 mg/dL (0.0-1.0)
--- NOTE | 2018-01-15 20:30 | NUR ---
SPO2 92% on 4LPM/NC. No change in mentition or respiratory status. Dr. Srivastava aware. Daughter at bedside.
[2018-01-15 20:31] LABS: INR 1.1 (0.8-1.2); PROTHROMBIN TIME 10.8 SECS (9.5-12.5)
[2018-01-15 20:44] LABS: BASOPHILS # (AUTO) 0.1 K/uL (0.0-0.2); BASOPHILS % (AUTO) 0.4 % (0.0-2.0); EOSINOPHILS # (AUTO) 0.2 K/uL (0.0-0.4); EOSINOPHILS % (AUTO) 1.6 % (0.0-4.0); HEMATOCRIT 27.1 % (36-48); LYMPHOCYTES # (AUTO) 1.9 K/uL (1.0-5.5); MEAN CORPUSCULAR HEMOGLOBIN 21 pg (27-31); MEAN CORPUSCULAR HGB CONC 29 % (32-36); MEAN CORPUSCULAR VOLUME 71 fL (79.0-98.0); MONOCYTES # (AUTO) 0.7 K/uL (0.0-1.0); MONOCYTES % (AUTO) 5.3 % (1.7-9.3); NEUTROPHILS # (AUTO) 10.5 K/uL (1.8-7.7); NEUTROPHILS % (AUTO) 78.7 % (40.0-70.0); RED BLOOD CELL COUNT(AUTO) 3.84 MIL/uL (4.2-6.2); WHITE BLOOD COUNT (AUTO) 13.4 K/uL (4.8-10.8)
[2018-01-15 20:47] LABS: PLATELET COUNT (AUTO) 300 K/uL (130-430)
[2018-01-15] MEDS ORDERED: VANCOMYCIN HCL 1,000 MG in NS 250 ML IV ONE (21:30)
[2018-01-15] MEDS ORDERED: PIPERACILLIN/TAZO 3.375 GM in NS 50 ML IV ONE (21:30)
[2018-01-15] MEDS ORDERED: VANCOMYCIN HCL 1000 MG/VIAL IV ONE (21:37)
[2018-01-15] MEDS ORDERED: PIPERACILLIN/TAZOBACTAM 3.375 GM/VIAL (ZOSYN) IV ONE (21:37)
--- NOTE | 2018-01-15 21:40 | NUR ---
SPO2 78% on 5 LPM/NC. Dr. Srivastava notified.
--- NOTE | 2018-01-15 21:45 | NUR ---
No change in SPO2. Pt appears to be mouth breathing. NC placed to mouth.
--- NOTE | 2018-01-15 21:50 | NUR ---
SPO2 79%. Dr. Srivastava notified. Pt placed on NRB face mask at 15 LPM O2.
--- NOTE | 2018-01-15 21:55 | NUR ---
Lab at bedside.
--- NOTE | 2018-01-15 22:00 | NUR ---
SPO2 at 92%. Pt continues to experience labored respirations with accessory muscle usage. Dr. Atif dimas.
--- NOTE | 2018-01-15 22:05 | NUR ---
RT at bedside for ABG.
--- NOTE | 2018-01-15 22:10 | NUR ---
# 16 FR Ortiz catheter with use of sterile technique. Immediate return of 3 cc yellow and cloudy urine noted. Bedside drainage bag placed below level of bladder. Urine sample collected and sent to lab. Pt tolerated procedure well. Patient arrived with ortiz in place, changed due to standard of practice prior to admission. Patient unable to toilet self.
--- NOTE | 2018-01-15 22:15 | NUR ---
Lab calls to inform that more urine is needed. Able to collect 10 mL yellow and cloudy urine from F/C tubing.
[2018-01-15] MEDS ORDERED: INSULIN REGULAR, HUMAN 10 UNITS/0.1 ML INJ IVP ONE (22:30)
--- NOTE | 2018-01-15 22:35 | NUR ---
Wound to sacrum noted. L 7cm x W 4cm D 4cm; clean erythemic tissue at wound bed; no undermining/no excudate present. Per daughter at bedside, wound has been staged at 3. Dressing changed. Pt tolerated well.
[2018-01-15 22:42] LABS: BILIRUBIN,URINE NEGATIVE (NEGATIVE); BLOOD, URINE 2+ (NEGATIVE); CLARITY/URINE CLOUDY (CLEAR); COLOR,URINE YELLOW (YELLOW); GLUCOSE,URINE NEGATIVE (NEGATIVE); KETONES,URINE NEGATIVE (NEGATIVE); LEUKOCYTE ESTERASE ,URINE 2+ (NEGATIVE); NITRITE, URINE NEGATIVE (NEGATIVE); PROTEIN URINE 2+ (NEGATIVE); UROBILINOGEN,URINE 0.2 (0.2-1.0)
[2018-01-15 22:47] LABS: BACTERIA,URINE MODERATE /HPF (None Seen); HYALINE CASTS, URINE 0-10 /LPF (None Seen); MUCUS,URINE None Seen /LPF (None Seen); WBC,URINE >100 /HPF (0-3)
--- NOTE | 2018-01-15 22:50 | NUR ---
SPO2 84% on O2 at 4 LPM/NC. Dr. Srivastava made aware. RT notified, pt placed on BiPAP.
--- NOTE | 2018-01-15 23:00 | NUR ---
No improvement in SPO2 with BiPAP, SPO2 83%. Dr. Srivastava made aware. RT at bedside, pt placed on high flow O2.
--- NOTE | 2018-01-15 23:05 | NUR ---
24 GA RHA difficult to flush, no blood return noted. No s/s infiltration. PIV discontinue with angiocath tip intact, dsg applied to site.
--- NOTE | 2018-01-15 23:07 | NUR ---
Laboratory critical value reported. Call recieved by ED MD Srivastava. Second lactic acid of 5.0. No additional intervention at this time. Patient to be admitted to telemetry unit.
[2018-01-15] MEDS ORDERED: DOCUSATE SODIUM 100 MG/10 ML UDC GT PRN (23:15)
[2018-01-15] MEDS ORDERED: DEXTROSE 50% JECT 50 ML DISP.SYRIN IVP PRN (23:15)
[2018-01-15] MEDS ORDERED: CALCIUM CARBONATE 500 MG/ TAB.CHEW PO PRN (23:15)
[2018-01-15] MEDS ORDERED: HYDROcodone/ACETAMIN 5-325 MG TAB (NORCO/ VICODIN) GT PRN (23:15)
[2018-01-15] MEDS ORDERED: cloNIDine HCL 0.1 MG TABLET PO PRN (23:15)
[2018-01-15] MEDS ORDERED: ACETAMINOPHEN 650 MG/20.3 ML UDC PO PRN (23:15)
[2018-01-15] MEDS ORDERED: 0.45% NS 500 ML IV ONE (23:15)
--- NOTE | 2018-01-15 23:15 | NUR ---
Unsuccessful PIV attempts to RFA. Daughter states "no more sticks." Dr. Srivastava notified.
--- NOTE | 2018-01-15 23:20 | NUR ---
Dr. Valentine at bedside.
[2018-01-15] MEDS ORDERED: NOREPINEPHRINE BITARTRATE 4 MG in D5W 246 ML IV PRN (23:30)
[2018-01-15] MEDS ORDERED: ETOMIDATE 20 MG/ 10 ML VIAL (AMIDATE) IVP ONE (23:30)
[2018-01-15] MEDS ORDERED: SUCCINYLCHOLINE CHLORIDE 20 MG/ML(QUELICIN) IVP ONE (23:30)
[2018-01-15] MEDS ORDERED: LORazepam 2 MG/ML VIAL IVP PRN (23:30)
[2018-01-15] MEDS ORDERED: MORPHINE 4 MG/ML INJ. SYRINGE IVP PRN (23:30)
--- NOTE | 2018-01-15 23:30 | NUR ---
#15 GA 45mm I/O placed to RLE, easy flush, secured with gauze and tape.
--- NOTE | 2018-01-15 23:30 | NUR ---
Pt prepped for intubation.
[2018-01-15] MEDS ORDERED: NOREPINEPHRINE 4 MG/4 ML VIAL IV ONE (23:37)
--- NOTE | 2018-01-15 23:40 | NUR ---
Time out performed. Dr. Srivastava, RT, myself, Cassy Brambila, RN, Luis E Locke at bedside. Etomidat 15 mg IVP followed by NS flush given.
--- NOTE | 2018-01-15 23:41 | NUR ---
Succinycholine 100 mg given IVP to patent I/O RLE, followed by NS flush.
--- NOTE | 2018-01-15 23:42 | NUR ---
Etomidate 5 mg given IVP to patent I/O RLE, followed by NS flush.
[2018-01-15] MEDS ORDERED: LEVOFLOXACIN 500 MG/D5W 100 ML IV ONE (23:45)
--- NOTE | 2018-01-15 23:45 | NUR ---
Pt intubated by Dr. Srivastava with 6.5 ETT, secured at 22 cm to lip line.
--- NOTE | 2018-01-15 23:50 | NUR ---
Pt on Vent with settings: A/C, Vt 500 mL, PIP 29, Rate 12, FiO2 100% at 55 LPM. SPO2 now at 100%.
--- NOTE | 2018-01-15 23:56 | NUR ---
Propofol 10 mg/mL started at 5 mcg/kg/min to patent I/O RLE.
[2018-01-15] MEDS ORDERED: PROPOFOL DRIP 100 ML IV ONE (23:57)
[2018-01-15] MEDS ORDERED: ONDANSETRON HCL 4 MG/2 ML VIAL ONE (23:59)
[2018-01-16] VITALS (29 sets, daily range): BP systolic 82–132
[2018-01-16] MEDS ORDERED: PROPOFOL DRIP 100 ML IV PRN
[2018-01-16] MEDS ORDERED: ETOMIDATE 20 MG/ 10 ML VIAL (AMIDATE) IVP ONE
[2018-01-16] MEDS ORDERED: ONDANSETRON HCL 4 MG/2 ML VIAL IVP ONE
--- NOTE | 2018-01-16 00:05 | NUR ---
Family called to triage room and updated on pt status, POC and procedures being performed. Verbalizes understanding and questions answered.
--- NOTE | 2018-01-16 00:08 | NUR ---
# 22 FR NG tube placed to right nare. Placement checked by auscultation of instilled air into stomach and aspiration of gastric contents. Tubing taped in place to prevent dislodging. Patient tolerated well.
--- NOTE | 2018-01-16 00:10 | NUR ---
Time out performed. Dr. Srivastava at bedside to place central line to [facility].
[2018-01-16] MEDS ORDERED: cloNIDine HCL 0.1 MG TABLET GT PRN (00:11)
--- NOTE | 2018-01-16 00:25 | NUR ---
RLE I/O saline locked and Propofol and NS now infusing to RIJ Central Line Catheter.
--- NOTE | 2018-01-16 00:30 | NUR ---
Pt with eyes open. Propofol titrated to 10 mcg/kg/min to RIJ central line catheter. NS infusing at 100 mL/hr to second port of central line.
--- NOTE | 2018-01-16 01:12 | NUR ---
Pt moving arm and eyes open. Propofol titrated to 15 mcg/kg/min.
--- NOTE | 2018-01-16 01:14 | NUR ---
X-ray at bedside.
--- NOTE | 2018-01-16 01:35 | NUR ---
Pt with eyes open and movement to RUE. Propofol titrated to 20 mcg/kg/min.
--- NOTE | 2018-01-16 01:47 | NUR ---
Patient will be admitted to care of Dr. Valentine. Admitted to ICU unit. Will go to room 5. Summary report printed. Bedside report given to KRISTINE Quinn.
--- NOTE | 2018-01-16 01:50 | NUR ---
Admission Assessment Received report from Checo CARMONA in ER. Pt in bed, lethargic. ETT in place.Pt received 2L of fluid bolus in ER, receiving 1L fluid bolus now. Pt on Diprivan Drip. No s/s of distress or discomfort. Will continue to monitor. Addendum: 01/16/18 at 0843 by Kai Lagos RN Upon assessing Pt, lower front tooth (center) noted to be loose, out of place, bent down into gum. Charge nurse notified.
--- NOTE | 2018-01-16 03:15 | NUR ---
PULMONARY CONSULT FOR DR. OAKLEY, ID CONSULT FOR , CARDIOLOGY CONSULT FOR , ALL CALLED TO [facility] AT EXC AND MESSAGES LEFT.
[2018-01-16] MEDS ORDERED: LEVOFLOXACIN 500 MG/D5W 100 ML IV ONE (03:27)
[2018-01-16] MEDS: NOREPINEPHRINE BITARTRATE 4 MG in D5W 246 ML IV PRN (03:45)
--- NOTE | 2018-01-16 03:45 | NUR ---
Levophed Levophed started at 2mcg/min for BP 85/33
--- NOTE | 2018-01-16 04:15 | NUR ---
CALLED DR.LEUNG Welch 4 TIMES TO REPORT THE ABG RESULTS AND TO INFORM HIM ABOUT THE CONSULT.
--- NOTE | 2018-01-16 05:30 | NUR ---
CALLED BACK, INFORMED HIM OF THE CONSULTATION,AND ABG RESULTS. ORDERS RECEIVED.
[2018-01-16] MEDS ORDERED: PIPERACILLIN/TAZOBACTAM 2.25 GM VIAL IV ONE (06:32)
--- NOTE | 2018-01-16 07:15 | NUR ---
Endorsement Report given to Oncoming nurse at bedside via SBAR approach. Addendum: 01/16/18 at 0844 by Kai Lagos RN Endorsed to oncoming nurse of loose, bottom, front tooth that remains in place.
--- NOTE | 2018-01-16 07:15 | NUR ---
AM ROUNDS: Report received from KRISTINE Quinn for continuation of care.
--- NOTE | 2018-01-16 07:19 | NUR ---
Nutrition Update Jeff Scale 11 noted. Pt admitted for Sepsis Diet: tube feeding BMI: 29.2 kg/m2 RD to follow per nutrition care standards.
--- NOTE | 2018-01-16 07:20 | NUR ---
CLOSING NOTE: Report given to KRISTINE Johnson for continuation of care. Endorsed Procrit and Varunt to KRISTINE Johnson. Addendum: 01/16/18 at 1935 by Keaton Candelaria RN Wrong time, ignore.
[2018-01-16] MEDS: FERROUS SULFATE 300 MG/5 ML UDC GT SCH ×3 (07:35→17:51)
[2018-01-16] MEDS: PIPERACILLIN/TAZO 2.25G/DEX-IS 50 ML IV SCH ×3 (07:36→17:49)
[2018-01-16] MEDS: INSULIN REGULAR, HUMAN 100 UNITS/ML, 10 ML VIAL (novoLIN R) SUBCUT PRN ×4 (07:43→21:49)
[2018-01-16] MEDS: ALBUTEROL SULFATE 0.083% 2.5 MG/3 ML VIAL.NEB INH SCH ×3 (07:57→19:56)
[2018-01-16 08:03] LABS: POTASSIUM 3.6 mmol/L (3.5-5.1)
[2018-01-16 08:05] LABS: CALCIUM 9.7 mg/dL (8.4-11.0); CREATININE 1.85 mg/dL (0.55-1.30); FREE T4 (FREE THYROXINE) 0.8 ng/dl (0.8-1.5); PHOSPHORUS 3.6 mg/dL (2.7-4.5); THYROID STIMULATING HORMONE 3.23 uIu/mL (0.36-3.74)
--- NOTE | 2018-01-16 08:18 | NUR ---
MEDICATION: Calcium Carbonate is not available. Spoke with in pharmacy.
[2018-01-16 08:32] LABS: TOTAL IRON BIND. CAPACITY 217 ug/dL (250-450)
[2018-01-16 08:40] LABS: MEAN CORPUSCULAR HEMOGLOBIN 21 pg (27-31); MEAN CORPUSCULAR HGB CONC 30 % (32-36); MEAN CORPUSCULAR VOLUME 70 fL (79.0-98.0); PLATELET COUNT (AUTO) 167 K/uL (130-430); RED BLOOD CELL COUNT(AUTO) 3.21 MIL/uL (4.2-6.2); RED CELL DISTRIBUTION WIDTH 16.2 % (9.0-15.0); WHITE BLOOD COUNT (AUTO) 8.2 K/uL (4.8-10.8)
[2018-01-16] MEDS: ACETAMINOPHEN 650 MG/20.3 ML UDC GT PRN ×2 (08:41→21:46)
[2018-01-16] MEDS: METOCLOPRAMIDE HCL 10 MG/10 ML UDC GT SCH ×3 (08:41→21:19)
[2018-01-16] MEDS: CALCIUM CARBONATE/VITAMIN D3 1 TAB TABLET GT SCH ×2 (08:42→21:21)
[2018-01-16] MEDS: PANTOPRAZOLE GRANULES PACKET 40 MG GT SCH (08:42)
[2018-01-16] MEDS: ASCORBIC ACID 500 MG TABLET GT SCH ×2 (08:42→21:22)
[2018-01-16] MEDS: LACTULOSE 20 GM/30 ML UDC GT SCH ×2 (08:44→21:19)
[2018-01-16] MEDS: LevETIRAcetam 500 MG/5 ML UDC ORAL LIQUID GT SCH ×2 (08:55→21:22)
[2018-01-16] MEDS ORDERED: [UNRECOGNIZED DRUG - OTHER] GT SCH (09:00)
[2018-01-16] MEDS ORDERED: MULTIVIT-MINERALS/FERROUS GLUC 15 ML UDC GT SCH (09:00)
[2018-01-16] MEDS ORDERED: [UNRECOGNIZED DRUG - REMARK] GT SCH (09:00)
[2018-01-16] MEDS ORDERED: 0.45% NACL 1,000 ML IV ONE (09:06)
[2018-01-16 09:19] LABS: HEMATOCRIT 22.6 % (36-48); HEMOGLOBIN 6.8 g/dL (12.0-16.0)
--- NOTE | 2018-01-16 09:30 | NUR ---
MD COMMUNICATION: Reported 1 bottom front tooth sticking out and dried blood around mouth to Dr. Griffin, he verbalized understanding.
[2018-01-16 10:37] LABS: TOTAL IRON BIND. CAPACITY 104 ug/dL (250-450)
--- NOTE | 2018-01-16 11:00 | NUR ---
MANJARREZ CATH: # 18 FR Manjarrez catheter with 10 cc bulb inserted with use of sterile technique. Bulb inflated with 10 cc sterile water. Immediate return of 100 cc yellow urine noted. Bedside drainage bag placed below level of bladder. Pt tolerated procedure well.
--- NOTE | 2018-01-16 11:08 | NUR ---
ETT ADVANCED: To lipline 25cm by RT. Radiology notified.
[2018-01-16] MEDS ORDERED: NS 500 ML IV ONE (11:15)
[2018-01-16] MEDS ORDERED: AZITHROMYCIN 500 MG in NS 250 ML IV SCH (11:15)
[2018-01-16] MEDS ORDERED: 0.45% NACL 500 ML IV SCH (11:15)
--- NOTE | 2018-01-16 11:23 | NUR ---
ETT ADVANCED: To lipline 26 by RT.
--- NOTE | 2018-01-16 11:25 | NUR ---
1120 PUSHED ETT DOWN 1CM TO 26CM LL. PT TOLERATING. RN AWARE. Addendum: 01/16/18 at 1127 by Claudette Joyce RT Amended: Links added.
--- NOTE | 2018-01-16 12:00 | NUR ---
Diprivan titration Diprivan titrated up to 25 mcgs.
--- NOTE | 2018-01-16 12:05 | NUR ---
VENT CHANGE: By RT, FIO2 60%.
--- NOTE | 2018-01-16 12:09 | NUR ---
PICC LINE: PICC LINE nurse arrived to insert PICC line.
--- NOTE | 2018-01-16 12:10 | NUR ---
1205 TITRATED FIO2 TO 60% DUE TO DESAT. SAT. NOW 91%.RN AWARE. Addendum: 01/16/18 at 1212 by Claudette Joyce RT Amended: Links added.
[2018-01-16] MEDS ORDERED: 0.45% NACL 500 ML IV ONE (12:15)
[2018-01-16 13:33] LABS: BAND % (MANUAL) 30 % (0-6); BASOPHILS % (MANUAL) 0 % (0-2); EOSINOPHILS % (MANUAL) 0 % (0-7); LYMPHOCYTES % (MANUAL) 9 % (20-46); MONOCYTES % (MANUAL) 3 % (0-11)
[2018-01-16] MEDS: 0.45% NACL 1,000 ML IV SCH ×2 (13:41→23:02)
[2018-01-16] MEDS: AZITHROMYCIN IV SCH (13:51)
[2018-01-16] MEDS: NACL 0.45% IV SCH (13:51)
--- NOTE | 2018-01-16 14:20 | NUR ---
BT INITIATION: Consent signed per daughter agreeing to administration of blood. Blood has been type and crossmatched. Blood sent from blood bank. Information on unit of blood checked against patient wristband at bedside by two nurses. All information matches. Patient or responsible republican informed of potential complications associated with blood transfusion. Informed of possible transfusion reaction symptoms. Aware of need to notify nurse at once of itching, shortness of breath, flushing, feeling of impending doom, or other symptoms not previously present. Vital signs taken within 5 minutes prior to initiation of transfusion. RN will remain with patient for first 15 minutes of transfusion at which time vital signs will be re-assessed.
[2018-01-16] MEDS ORDERED: NOREPINEPHRINE 4 MG/4 ML VIAL IV ONE (14:25)
[2018-01-16] MEDS: IPRATROPIUM BROM 0.5 MG/2.5 ML VIAL.NEB (ATROVENT) INH SCH ×2 (15:00→19:57)
[2018-01-16] MEDS: LORazepam 2 MG/ML VIAL IVP PRN (17:50)
[2018-01-16] MEDS: PROPOFOL DRIP 100 ML IV PRN (18:34)
--- NOTE | 2018-01-16 19:15 | NUR ---
PM SHIFT ASSESSMENT Pt is sedated on Diprivan. SR noted on monitor. Pt on vent, tolerating current vent settings. NG to right nare, clamped. Gtube in place, tubefeeding infusing. Colostomy bag noted to LLQ. Wound noted to sacrum, dressing in place. Hernandez catheter in place and draining to gravity. Safety precautions in place. will continue to monitor.
--- NOTE | 2018-01-16 19:20 | NUR ---
CLOSING NOTE: Report given to KRISTINE Johnson for continuation of care. Endorsed Procrit and Ferrecilt to KRISTINE Johnson.
[2018-01-16] MEDS: EPOETIN ALFA 4,000 UNITS/ML VIAL SUBCUT SCH ×2 (19:30→21:51)
[2018-01-16 19:39] LABS: CALCIUM 9.7 mg/dL (8.4-11.0); CREATININE 1.71 mg/dL (0.55-1.30); POTASSIUM 3.7 mmol/L (3.5-5.1)
[2018-01-16 20:14] LABS: HEMATOCRIT 23.6 % (36-48); HEMOGLOBIN 7.6 g/dL (12.0-16.0); MEAN CORPUSCULAR HEMOGLOBIN 23 pg (27-31); MEAN CORPUSCULAR HGB CONC 32 % (32-36); MEAN CORPUSCULAR VOLUME 73 fL (79.0-98.0); RED BLOOD CELL COUNT(AUTO) 3.25 MIL/uL (4.2-6.2); WHITE BLOOD COUNT (AUTO) 10.7 K/uL (4.8-10.8)
[2018-01-16 20:29] LABS: PLATELET COUNT (AUTO) 119 K/uL (130-430)
[2018-01-16 20:42] LABS: BAND % (MANUAL) 58 % (0-6); BASOPHILS % (MANUAL) 0 % (0-2); CORRECTED WHITE BLOOD COUNT 10.2 K/uL (4.5-11.0); EOSINOPHILS % (MANUAL) 0 % (0-7); LYMPHOCYTES % (MANUAL) 17 % (20-46); MONOCYTES % (MANUAL) 10 % (0-11)
[2018-01-16] MEDS ORDERED: SOD FERRIC GLUC COMPLEX/SUC 62.5 MG/5 ML VIAL (FERRLECIT) IV ONE (20:50)
[2018-01-16] MEDS: SOD FERRIC GLUC COMPLEX/SUC 125 MG in NS 100 ML IV SCH (21:18)
[2018-01-16] MEDS: MULTIVIT-MINERALS/FERROUS GLUC 15 ML UDC GT SCH (21:22)
--- NOTE | 2018-01-16 22:30 | NUR ---
CHG bath given. Pt tolerated care well.
--- NOTE | 2018-01-16 23:00 | NUR ---
Yobany Johnson RN titrate Diprivan from 25 mcg/kg/min to 20 mcg/kg/min.
[2018-01-17] VITALS (29 sets, daily range): BP systolic 105–143
[2018-01-17] MEDS: PIPERACILLIN/TAZO 2.25G/DEX-IS 50 ML IV SCH ×5 (00:16→23:42)
[2018-01-17] MEDS: NOREPINEPHRINE BITARTRATE 4 MG in D5W 246 ML IV PRN ×2 (00:17→11:00)
[2018-01-17] MEDS: ALBUTEROL SULFATE 0.083% 2.5 MG/3 ML VIAL.NEB INH SCH ×4 (00:49→20:04)
[2018-01-17] MEDS: PROPOFOL DRIP 100 ML IV PRN (01:11)
--- NOTE | 2018-01-17 03:00 | NUR ---
Yobany Johnson RN titrate Diprivan from 20 mcg/kg/min to 15 mcg/kg/min.
[2018-01-17] MEDS: FERROUS SULFATE 300 MG/5 ML UDC GT SCH ×3 (06:18→16:58)
[2018-01-17] MEDS: INSULIN REGULAR, HUMAN 100 UNITS/ML, 10 ML VIAL (novoLIN R) SUBCUT PRN ×4 (06:23→20:26)
[2018-01-17 06:53] LABS: EOSINOPHILS # (AUTO) 0.1 K/uL (0.0-0.4); LYMPHOCYTES # (AUTO) 1.1 K/uL (1.0-5.5)
--- NOTE | 2018-01-17 07:09 | NUR ---
AM ROUNDS: Report received from Elizabeth for continuation of care. No signs or symptoms of distress noted.
--- NOTE | 2018-01-17 07:09 | NUR ---
ENDORSEMENT Pt care endorsed to KRISTINE Whitley at bedside using nursing SBAR.
[2018-01-17 07:11] LABS: ALBUMIN 1.7 g/dL (3.4-4.8); CALCIUM 9.3 mg/dL (8.4-11.0); CREATININE 1.59 mg/dL (0.55-1.30); POTASSIUM 3.3 mmol/L (3.5-5.1); TOTAL BILIRUBIN 0.4 mg/dL (0.0-1.0)
[2018-01-17 07:39] LABS: BASOPHILS % (AUTO) 0.2 % (0.0-2.0); EOSINOPHILS % (AUTO) 0.9 % (0.0-4.0); LYMPHOCYTES % (AUTO) 11.2 % (20.5-51.5); MEAN CORPUSCULAR HEMOGLOBIN 23 pg (27-31); MEAN CORPUSCULAR HGB CONC 31 % (32-36); MEAN CORPUSCULAR VOLUME 73 fL (79.0-98.0); MONOCYTES # (AUTO) 0.3 K/uL (0.0-1.0); MONOCYTES % (AUTO) 3.5 % (1.7-9.3); NEUTROPHILS # (AUTO) 8.1 K/uL (1.8-7.7); PLATELET COUNT (AUTO) 146 K/uL (130-430); RED BLOOD CELL COUNT(AUTO) 2.93 MIL/uL (4.2-6.2); RED CELL DISTRIBUTION WIDTH 17.8 % (9.0-15.0); WHITE BLOOD COUNT (AUTO) 9.6 K/uL (4.8-10.8)
[2018-01-17 07:48] LABS: HEMATOCRIT 21.3 % (36-48); HEMOGLOBIN 6.6 g/dL (12.0-16.0)
--- NOTE | 2018-01-17 07:48 | NUR ---
PAGED: Dr. Serge nuñez regarding critical lab. Spoke with Anita from his exchange.
--- NOTE | 2018-01-17 07:50 | NUR ---
CALLBACK: Dr. Valentine called back, critical labs read. Orders received.
[2018-01-17] MEDS: IPRATROPIUM BROM 0.5 MG/2.5 ML VIAL.NEB (ATROVENT) INH SCH ×4 (07:54→20:04)
[2018-01-17 08:33] LABS: NEUTROPHILS % (AUTO) 84.2 % (40.0-70.0)
[2018-01-17] MEDS: METOCLOPRAMIDE HCL 10 MG/10 ML UDC GT SCH ×3 (08:48→20:19)
[2018-01-17] MEDS: LACTULOSE 20 GM/30 ML UDC GT SCH ×2 (08:48→20:19)
[2018-01-17] MEDS: ASCORBIC ACID 500 MG TABLET GT SCH ×2 (08:48→20:19)
[2018-01-17] MEDS: MULTIVIT-MINERALS/FERROUS GLUC 15 ML UDC GT SCH ×2 (08:48→20:20)
[2018-01-17] MEDS: PANTOPRAZOLE GRANULES PACKET 40 MG GT SCH (08:48)
[2018-01-17] MEDS: CALCIUM CARBONATE/VITAMIN D3 1 TAB TABLET GT SCH ×2 (08:49→20:18)
[2018-01-17] MEDS: LevETIRAcetam 500 MG/5 ML UDC ORAL LIQUID GT SCH ×2 (08:50→20:20)
[2018-01-17] MEDS: 0.45% NACL 1,000 ML IV SCH ×2 (08:58→17:54)
[2018-01-17] MEDS ORDERED: POTASSIUM CHLORIDE 20 MEQ/PKT PACKET PO ONE (10:00)
[2018-01-17] MEDS ORDERED: FUROSEMIDE 20 MG/2 ML VIAL IVP ONE (10:00)
--- NOTE | 2018-01-17 10:00 | NUR ---
Witnessed diprivan turned off.
--- NOTE | 2018-01-17 10:25 | NUR ---
RT: ET advanced to 26, FIO2 changed to 40% by RT.
--- NOTE | 2018-01-17 10:35 | NUR ---
1025 PUSHED ETT TO 26CM LL, VOLUMES ACHEIVED.. TITRATED FIO2 TO .40, SAT 97% RN AWARE Addendum: 01/17/18 at 1038 by Claudette Joyce RT Amended: Links added.
--- NOTE | 2018-01-17 10:53 | NUR ---
O2 TITRATION: To 1LPM. Patient is tolerating well. Addendum: 01/17/18 at 1055 by Keaton Candelaria RN Note meant for another patient, disregard.
[2018-01-17] MEDS: AZITHROMYCIN IV SCH (11:13)
[2018-01-17] MEDS: NACL 0.45% IV SCH (11:13)
[2018-01-17] MEDS: LORazepam 2 MG/ML VIAL IVP PRN (12:08)
--- NOTE | 2018-01-17 12:36 | NUR ---
Physical Therapy ordered has been received. Nurse and chart review indicate that the patient is still not medically appropriate to attempt an evaluation. Nurse agreed that a new order should be sought when the patient is more medically appropriate.
[2018-01-17 15:15] LABS: FERRITIN 2860 ng/mL (15-150)
--- NOTE | 2018-01-17 15:20 | NUR ---
WOUND EVALUATION: Wound Consult received from Dr. Valentine. Thank you, Dr. Valentine, for the consult. Patient received in a [place] Bed with an Isoflex ENE mattress with low air-loss therapy initiated, awake, alert, nonverbal, nonresponsive to verbal commands. Patient is unable to turn in bed independently. Jeff Score is a 13. Past Medical History: CVA, residual Left-Sided Hemiplegia, Dysphagia, Hypertension, Diabetes Mellitus Type II, Stage III Sacral-Coccygeal pressure ulcer, Hyperlipidemia, Anemia, Atherosclerosis, Neurogenic Bladder. Recent Labs: WBC 9.6, RBC 2.93, hemoglobin 6.6, hematocrit 21.3, sodium 149, potassium 3.3, chloride 116, BUN 79, creatinine 1.59, GFR 35, glucose 243, albumin 1.7, PTT 22.5 blood culture results in progress. Intrinsic factors that delay wound healing: Diabetes Mellitus, Anemia. Extrinsic factors that delay wound healing: Immobility. Microbiology: Blood culture results 2 in progress. Urine culture results in progress. MRSA screen results positive. Endotracheal sputum results in progress. Wound Assessment: 1. Sacral-Coccygeal area: Pressure ulcer, present on admission. Wound bed has 60% yellow tissue, 30% pink tissue, 10% black tissue. No odor, scant sanguineous drainage. Dark discolored tissue present on surrounding tissue. Wound measures 7.6 cm 6.0 cm x 3.0 cm. Undermining present from 7-2 o-clock, deepest 2.0 cm at 9 o'clock. Recommend: Cleanse wound with normal saline. Place moisture barrier cream onto bowen-wound. Apply Venelex ointment onto wound bed. Pack wound with two 2.2 inch TenderWet dressings. Cover with Sacral foam dressing. Perform wound care daily, and as needed for dressing soiling or dislodgement. Also recommend: Reposition patient side to side only every 2 hours with pillow support. Off-load pressure areas with pillows for pressure re-distribution. Offload, elevate and float bilateral heels with one pillow lengthwise under each extremity at all times. Perform skin care and monitor skin integrity Q shift. Use moisture barrier cream on buttocks and other moisture susceptible areas QID and as needed for soiling. Maintain patient on a low air-loss mattress.
--- NOTE | 2018-01-17 15:30 | NUR ---
BT INITIATION: Consent signed per Maci, daughter agreeing to administration of blood. Blood has been type and crossmatched. Blood sent from blood bank. Information on unit of blood checked against patient wristband at bedside by two nurses. All information matches. Patient or responsible libertarian informed of potential complications associated with blood transfusion. Informed of possible transfusion reaction symptoms. Aware of need to notify nurse at once of itching, shortness of breath, flushing, feeling of impending doom, or other symptoms not previously present. Vital signs taken within 5 minutes prior to initiation of transfusion. RN will remain with patient for first 15 minutes of transfusion at which time vital signs will be re-assessed.
--- NOTE | 2018-01-17 16:13 | NUR ---
Dietitian Recommendations * Recommend Glucerna 1.2 at 40 ml/hr, Marques BID, Prosource TID, Free Water Flush: 200CC Q4 via GT Provides: 1508 kcal/day, 108 gm protein/day, and 1973 ml free water/day Meets: 89% of estimated caloric needs and 108% of estimated protein needs LP, RD Please refer to Nutrition Assessment for details.
[2018-01-17] MEDS ORDERED: ACETAMINOPHEN 325 MG TABLET PO PRN (17:15)
[2018-01-17] MEDS: SOD FERRIC GLUC COMPLEX/SUC 125 MG in NS 100 ML IV SCH (17:54)
--- NOTE | 2018-01-17 19:22 | NUR ---
CLOSING NOTE: Report given to KRISTINE Quinn for continuation of care. No signs or symptoms of distress noted.
--- NOTE | 2018-01-17 19:35 | NUR ---
PM Assessment Pt in bed, lethargic. ETT in place. NSR shown on monitor. Pt has ortiz catheter draining yellow urine to gravity. Pt has NGT clamped. G-tube in place, running tubefeeding. Pt tolerating well, no residual noted. Pt has Right IJ in place. Pt has right arm midline IV that is SL. Skin not intact. Q2H turn interventions in place. Bed locked in lowest position, safety precautions in place, call light in reach. Will continue to monitor.
[2018-01-17] MEDS: LACTOBACILLUS RHAMNOSUS GG 1 CAP CAPSULE GT SCH (21:55)
[2018-01-18] VITALS (31 sets, daily range): BP systolic 95–139
--- NOTE | 2018-01-18 | NUR ---
CHG CHG given, and linens changed. Pt tolerated well.
[2018-01-18] MEDS: ALBUTEROL SULFATE 0.083% 2.5 MG/3 ML VIAL.NEB INH SCH ×4 (00:50→20:19)
[2018-01-18] MEDS: 0.45% NACL 1,000 ML IV SCH ×2 (04:29→15:06)
[2018-01-18] MEDS: PIPERACILLIN/TAZO 2.25G/DEX-IS 50 ML IV SCH ×3 (06:07→17:55)
[2018-01-18] MEDS: FERROUS SULFATE 300 MG/5 ML UDC GT SCH ×3 (06:08→17:55)
[2018-01-18 06:50] LABS: BASOPHILS % (AUTO) 0.1 % (0.0-2.0); EOSINOPHILS # (AUTO) 0.2 K/uL (0.0-0.4); EOSINOPHILS % (AUTO) 3.4 % (0.0-4.0); HEMATOCRIT 22.5 % (36-48); HEMOGLOBIN 7.2 g/dL (12.0-16.0); LYMPHOCYTES # (AUTO) 0.9 K/uL (1.0-5.5); MEAN CORPUSCULAR HEMOGLOBIN 24 pg (27-31); MEAN CORPUSCULAR HGB CONC 32 % (32-36); MEAN CORPUSCULAR VOLUME 75 fL (79.0-98.0); MONOCYTES # (AUTO) 0.2 K/uL (0.0-1.0); MONOCYTES % (AUTO) 3.6 % (1.7-9.3); NEUTROPHILS # (AUTO) 4.8 K/uL (1.8-7.7); NEUTROPHILS % (AUTO) 77.9 % (40.0-70.0); RED BLOOD CELL COUNT(AUTO) 3.01 MIL/uL (4.2-6.2); RED CELL DISTRIBUTION WIDTH 20.3 % (9.0-15.0)
[2018-01-18 07:05] LABS: ALBUMIN 1.5 g/dL (3.4-4.8); CREATININE 1.16 mg/dL (0.55-1.30); POTASSIUM 3.2 mmol/L (3.5-5.1); TOTAL BILIRUBIN 0.4 mg/dL (0.0-1.0)
--- NOTE | 2018-01-18 07:15 | NUR ---
Endorsement Report given to oncoming nurse at bedside via SBAR approach. Pt remains in bed asleep. No s/s of distress or discomfort.
[2018-01-18 07:20] LABS: WHITE BLOOD COUNT (AUTO) 6.1 K/uL (4.8-10.8)
[2018-01-18] MEDS: IPRATROPIUM BROM 0.5 MG/2.5 ML VIAL.NEB (ATROVENT) INH SCH ×4 (07:23→20:19)
--- NOTE | 2018-01-18 07:30 | NUR ---
AM ASSESSMENT Pt received laying in bed with eyes closed. Pt does not open eyes to verbal stimulation. Pt is intubated with vent settings of AC 12, TV 500, FiO2 40%. Pt has a G-Tube administering Glucerna 1.2 rate of 40 cc/hrs. Pt has a ortiz in place draining yellow urine to gravity. Bed in lowest position with HOB greater than 30 degrees. No signs of injury or complaints of distress. Will continue to monitor.
--- NOTE | 2018-01-18 08:45 | NUR ---
Lower Tooth Performing AM oral care, pt's lower tooth was loose and came out and placed bedside. No bleeding is noted. Will continue to monitor.
[2018-01-18] MEDS: LACTULOSE 20 GM/30 ML UDC GT SCH ×2 (08:51→20:23)
[2018-01-18] MEDS: LevETIRAcetam 500 MG/5 ML UDC ORAL LIQUID GT SCH ×2 (08:51→20:26)
[2018-01-18] MEDS: CALCIUM CARBONATE/VITAMIN D3 1 TAB TABLET GT SCH ×2 (08:51→20:24)
[2018-01-18] MEDS: METOCLOPRAMIDE HCL 10 MG/10 ML UDC GT SCH ×3 (08:51→20:27)
[2018-01-18] MEDS: ASCORBIC ACID 500 MG TABLET GT SCH ×2 (08:51→20:24)
[2018-01-18] MEDS: PANTOPRAZOLE GRANULES PACKET 40 MG GT SCH (08:51)
[2018-01-18] MEDS: LACTOBACILLUS RHAMNOSUS GG 1 CAP CAPSULE GT SCH ×2 (08:51→20:23)
[2018-01-18] MEDS: BALSAM PERU/CASTOR OIL 60 GM OINT...G. TP SCH (08:52)
[2018-01-18 10:30] LABS: PLATELET COUNT (AUTO) 143 K/uL (130-430)
[2018-01-18] MEDS: NACL 0.45% IV SCH (10:43)
[2018-01-18] MEDS: AZITHROMYCIN IV SCH (10:43)
[2018-01-18] MEDS: MULTIVIT-MINERALS/FERROUS GLUC 15 ML UDC GT SCH ×2 (10:43→20:24)
--- NOTE | 2018-01-18 11:44 | NUR ---
RT NOTES Per Dr Baig's verbal order. SIMV 8 PS 10 trial done. Almost immediately, pt's R.R increased to 44-47. Uneven, mildly labored breathing noted. KRISTINE Boucher at bedside witnessed as well. Switched vent settings back to AC 12.
[2018-01-18] MEDS ORDERED: POTASSIUM CHLORIDE 20 MEQ TAB.PRT.SR PO ONE (13:45)
--- NOTE | 2018-01-18 16:02 | NUR ---
WOUND CARE Wound care performed per wound care orders. Pt's daughter demanded to be present during wound care. Pt tolerated well, with vital signs stable. Will continue to monitor.
--- NOTE | 2018-01-18 16:30 | NUR ---
Tooth Pt's daughter was informed that pt's lower loose tooth fell out during am oral care. Pt's daughter indicated that that had been loose for "awhile" and requested to take it home. Pt's daughter was given tooth and denture cup.
[2018-01-18] MEDS: ACETAMINOPHEN 650 MG/20.3 ML UDC GT PRN (16:49)
[2018-01-18] MEDS: SOD FERRIC GLUC COMPLEX/SUC 125 MG in NS 100 ML IV SCH (17:56)
[2018-01-18] MEDS: EPOETIN ALFA 4,000 UNITS/ML VIAL SUBCUT SCH (17:56)
--- NOTE | 2018-01-18 18:30 | NUR ---
BT INITIATION: Blood has been type and crossmatched. Blood sent from blood bank. Information on unit of blood checked against patient wristband at bedside by two nurses. All information matches. Patient or responsible democrat informed of potential complications associated with blood transfusion. Informed of possible transfusion reaction symptoms. Aware of need to notify nurse at once of itching, shortness of breath, flushing, feeling of impending doom, or other symptoms not previously present. Vital signs taken within 5 minutes prior to initiation of transfusion. RN will remain with patient for first 15 minutes of transfusion at which time vital signs will be re-assessed. Pt tolerated well.
--- NOTE | 2018-01-18 19:10 | NUR ---
Closing Notes Pt endorsed using SBAR. All isolation precautions observed during shift.
--- NOTE | 2018-01-18 19:15 | NUR ---
PM SHIFT ASSESSMENT Pt is lethargic, unable to make needs known. SR noted on monitor. Pt on vent, tolerating current vent settings. Gtube in place, tubefeeding infusing. Colostomy bag noted to LLQ. Wound noted to sacrum, dressing in place. Hernandez catheter in place and draining to gravity. Safety precautions in place. will continue to monitor.
--- NOTE | 2018-01-18 23:00 | NUR ---
CHG CHG bath given. Pt tolerated care well.
[2018-01-19] VITALS (35 sets, daily range): BP systolic 99–141
[2018-01-19] MEDS: PIPERACILLIN/TAZO 2.25G/DEX-IS 50 ML IV SCH ×5 (00:39→23:27)
[2018-01-19] MEDS: 0.45% NACL 1,000 ML IV SCH ×3 (00:39→17:28)
[2018-01-19] MEDS: ALBUTEROL SULFATE 0.083% 2.5 MG/3 ML VIAL.NEB INH SCH ×4 (01:44→19:50)
[2018-01-19] MEDS: FERROUS SULFATE 300 MG/5 ML UDC GT SCH ×3 (06:31→17:27)
--- NOTE | 2018-01-19 07:15 | NUR ---
ENDORSEMENT Pt care endorsed to KRISTINE Boucher at bedside using nursing SBAR.
[2018-01-19] MEDS: IPRATROPIUM BROM 0.5 MG/2.5 ML VIAL.NEB (ATROVENT) INH SCH ×4 (07:16→19:50)
--- NOTE | 2018-01-19 07:25 | NUR ---
AM ASSESSMENT Pt received laying in bed with eyes closed. Pt does not open eyes to verbal stimulation. Pt has even and symmetrical rise and fall of chest and intubated with vent settings of AC 12, TV 500, FiO2 40%. Pt has patent G-Tube administering Glucerna 1.2 rate of 40 cc/hrs. Pt has a ortiz cath draining yellow urine to gravity. No signs of injury or complaints of distress. Will continue to monitor. Observation of isolation precautions.
[2018-01-19 07:33] LABS: CALCIUM 8.7 mg/dL (8.4-11.0); CREATININE 0.89 mg/dL (0.55-1.30); PHOSPHORUS 2.3 mg/dL (2.7-4.5); POTASSIUM 3.4 mmol/L (3.5-5.1)
[2018-01-19] MEDS: MULTIVIT-MINERALS/FERROUS GLUC 15 ML UDC GT SCH ×2 (08:54→20:35)
[2018-01-19] MEDS: LACTULOSE 20 GM/30 ML UDC GT SCH ×2 (08:54→20:35)
[2018-01-19] MEDS: PANTOPRAZOLE GRANULES PACKET 40 MG GT SCH (08:55)
[2018-01-19] MEDS: LACTOBACILLUS RHAMNOSUS GG 1 CAP CAPSULE GT SCH ×2 (08:55→20:35)
[2018-01-19] MEDS: CALCIUM CARBONATE/VITAMIN D3 1 TAB TABLET GT SCH ×2 (08:55→20:35)
[2018-01-19] MEDS: ASCORBIC ACID 500 MG TABLET GT SCH ×2 (08:55→20:35)
[2018-01-19] MEDS: BALSAM PERU/CASTOR OIL 60 GM OINT...G. TP SCH (08:56)
[2018-01-19] MEDS: LevETIRAcetam 500 MG/5 ML UDC ORAL LIQUID GT SCH ×2 (08:56→20:36)
[2018-01-19] MEDS ORDERED: POTASSIUM CHLORIDE 20 MEQ TAB.PRT.SR PO SCH (09:00)
[2018-01-19 09:02] LABS: HEMATOCRIT 23.7 % (36-48); HEMOGLOBIN 7.5 g/dL (12.0-16.0); MEAN CORPUSCULAR HEMOGLOBIN 24 pg (27-31); MEAN CORPUSCULAR HGB CONC 31 % (32-36); MEAN CORPUSCULAR VOLUME 77 fL (79.0-98.0); PLATELET COUNT (AUTO) 155 K/uL (130-430); RED BLOOD CELL COUNT(AUTO) 3.07 MIL/uL (4.2-6.2); RED CELL DISTRIBUTION WIDTH 22.4 % (9.0-15.0); WHITE BLOOD COUNT (AUTO) 8.1 K/uL (4.8-10.8)
[2018-01-19] MEDS: METOCLOPRAMIDE HCL 10 MG/10 ML UDC GT SCH ×3 (09:04→20:35)
[2018-01-19 11:01] LABS: BAND % (MANUAL) 8 % (0-6); BASOPHILS % (MANUAL) 0 % (0-2); EOSINOPHILS % (MANUAL) 4 % (0-7); LYMPHOCYTES % (MANUAL) 15 % (20-46); MONOCYTES % (MANUAL) 3 % (0-11)
--- NOTE | 2018-01-19 11:50 | NUR ---
Ortiz Cath Pt observed to have leak around ortiz cath, replaced pt's 18F with 20F. Will continue to monitor if leakage occurs.
--- NOTE | 2018-01-19 12:00 | NUR ---
WOUND CARE Wound care provided, pt tolerated well. Wound care carried out as per wound care directions. Will continue to monitor.
[2018-01-19] MEDS: LORazepam 2 MG/ML VIAL IVP PRN (12:33)
[2018-01-19] MEDS ORDERED: POTASSIUM CHLORIDE 20 MEQ/PKT PACKET GT ONE (15:15)
[2018-01-19] MEDS ORDERED: NAPH,MB-DB/K PH,MBDB 250 MG TAB GT ONE (15:15)
[2018-01-19] MEDS ORDERED: *TPN PER PHARMACY XX PRN (17:00)
[2018-01-19] MEDS ORDERED: DEXTROSE 50% JECT 50 ML DISP.SYRIN IVP PRN (17:00)
[2018-01-19] MEDS ORDERED: INSULIN REGULAR, HUMAN 100 UNITS/ML, 10 ML VIAL (novoLIN R) SUBCUT PRN (17:00)
--- NOTE | 2018-01-19 17:00 | NUR ---
Colostomy Bag Change Leak noticed on pt's colostomy, removed old bag. Cleaned area, matthew-prep and new colostomy bag applied to area.
[2018-01-19] MEDS: SOD FERRIC GLUC COMPLEX/SUC 125 MG in NS 100 ML IV SCH (18:45)
--- NOTE | 2018-01-19 18:45 | NUR ---
Medication given -Ferrlecit Ferrlecit 62.5 / 5 mL 125 mg in NS (100mL) given to pt. Medication did not save on eMAR, was administered to pt.
--- NOTE | 2018-01-19 19:15 | NUR ---
Closing Notes Pt endorsed to Milton CARMONA using SBAR. Vital signs stable.
--- NOTE | 2018-01-19 19:30 | NUR ---
PM ASSESSMENT PT RECEIVED IN BED W/ EYES CLOSED, RESPONDING TO TACTILE STIMULI. NO SIGNS OF ACUTE DISTRESS OR DISCOMFORT NOTED. PT HAS EVEN AND UNLABORED BREATHING INTUBATED W/ VENT SETTINGS AT AC 18, TV 500, FIO2 40% AND PEEP OF 5. VSS W/ SINUS RHYTHM SEEN ON THE MONITOR. PT HAS A MARIBEL PICC LINE PLACED TODAY, DRESSING C/D/I INFUSING 1/2 NS @ 70 CC/HR. PT HAS PATENT G-TUBE W/ GLUCERNA 1.2 @ 20 CC/HR. MANJARREZ CATH NOTED DRAINING URINE TO GRAVITY. COLOSTOMY BAG NOTED TO PT'S LL ABDOMEN DRAINING BROWN FLUID. C/D/I. BED IS LOCKED AND IN LOWEST POSITION, CALL LIGHT W/IN REACH, WILL CONTINUE TO MONITOR. Addendum: 01/20/18 at 0136 by Milton Pizano RN PT'S VENT SETTINGS AC 18, TV 500, FIO2 40% AND NO PEEP.
[2018-01-19] MEDS: NAPH,MB-DB/K PH,MBDB 250 MG TAB PO SCH (20:35)
[2018-01-19] MEDS: COLISTIMETHATE SODIUM 75 MG in NS 50 ML IV SCH (20:36)
--- NOTE | 2018-01-19 22:30 | NUR ---
CHG CHG BATH GIVEN TO PT AT THIS TIME. PT TOLERATED WELL, WILL CONTINUE TO MONITOR.
[2018-01-20] VITALS (35 sets, daily range): BP systolic 89–162
--- NOTE | 2018-01-20 01:05 | NUR ---
RN ROUNDS PT IN BED W/ EYES CLOSED, RESPONDING TO TACTILE STIMULI. NO SIGNS OF ACUTE DISTRESS OR DISCOMFORT NOTED. PT HAS EVEN AND UNLABORED BREATHING W/ SYMMETRICAL CHEST RISE INTUBATED W/ VENT SETTINGS STILL @ AC 18, TV 500, FIO2 40%. VSS W/ SINUS RHYTHM SEEN ON THE MONITOR. PT HAS A MARIBEL PICC, DRESSING C/D/I INFUSING 1/2 NS @ 70 CC/HR. PT HAS PATENT G-TUBE W/ TUBE FEEDING GLUCERNA 1.2 @ 20 CC/HR. MANJARREZ CATH NOTED DRAINING URINE TO GRAVITY. COLOSTOMY BAG NOTED TO PT'S LL ABDOMEN DRAINING BROWN FLUID. C/D/I. BED IS LOCKED AND IN LOWEST POSITION, CALL LIGHT W/IN REACH, WILL CONTINUE TO MONITOR.
[2018-01-20] MEDS: ALBUTEROL SULFATE 0.083% 2.5 MG/3 ML VIAL.NEB INH SCH ×4 (01:06→19:41)
--- NOTE | 2018-01-20 04:30 | NUR ---
COLOSTOMY BAG PT'S COLOSTOMY BAG LEAKING. REMOVED OLD BAG, CLEANED AROUND THE STOMA, SHARMIN-PREP AND NEW COLOSTOMY BAG PLACED. PT TOLERATED WELL.
[2018-01-20] MEDS: ACETAMINOPHEN 650 MG/20.3 ML UDC GT PRN ×2 (04:49→22:31)
[2018-01-20] MEDS: PIPERACILLIN/TAZO 2.25G/DEX-IS 50 ML IV SCH ×4 (05:25→23:02)
[2018-01-20] MEDS: FERROUS SULFATE 300 MG/5 ML UDC GT SCH ×3 (06:21→16:06)
[2018-01-20 07:00] LABS: ALBUMIN 1.3 g/dL (3.4-4.8); CALCIUM 8.7 mg/dL (8.4-11.0); CREATININE 0.74 mg/dL (0.55-1.30); PHOSPHORUS 2.6 mg/dL (2.7-4.5); POTASSIUM 3.4 mmol/L (3.5-5.1); TOTAL BILIRUBIN 0.4 mg/dL (0.0-1.0)
[2018-01-20] MEDS: IPRATROPIUM BROM 0.5 MG/2.5 ML VIAL.NEB (ATROVENT) INH SCH ×3 (07:16→19:42)
--- NOTE | 2018-01-20 07:20 | NUR ---
ENDORSEMENT PT CARE ENDORSED TO ALYSSA CARMONA. REPORT GIVEN USING SBAR FORMAT. PT IN BED W/ EYES CLOSED, NO SIGNS OF ACUTE DISTRESS OR DISCOMFORT NOTED.
--- NOTE | 2018-01-20 07:25 | NUR ---
AM Assessment Received pt obtunded, unable to follow commands. Pt in no signs of pain or distress at this time. Respirations even and unlabored ETT to vent. Skin cool. PICC MARIBEL intact, patent with IVF. GT in place with glucerna 1.[address] with yellow urine. Colostomy clean, intact. On CHAUHAN. SCDs in place. All extremities elevated on pillows. Bed locked in lowest position. Call light in reach. Will continue to monitor.
[2018-01-20 07:40] LABS: WHITE BLOOD COUNT (AUTO) 7.2 K/uL (4.8-10.8)
[2018-01-20 07:41] LABS: HEMATOCRIT 25.8 % (36-48); MEAN CORPUSCULAR HEMOGLOBIN 24 pg (27-31); MEAN CORPUSCULAR HGB CONC 31 % (32-36); MEAN CORPUSCULAR VOLUME 78 fL (79.0-98.0); PLATELET COUNT (AUTO) 69 K/uL (130-430); RED BLOOD CELL COUNT(AUTO) 3.32 MIL/uL (4.2-6.2); RED CELL DISTRIBUTION WIDTH 23.4 % (9.0-15.0)
[2018-01-20] MEDS: 0.45% NACL 1,000 ML IV SCH ×2 (09:12→10:01)
[2018-01-20] MEDS ORDERED: POTASSIUM CHLORIDE 20 MEQ/PKT PACKET PO ONE (09:30)
[2018-01-20] MEDS: LACTULOSE 20 GM/30 ML UDC GT SCH ×2 (09:52→20:25)
[2018-01-20] MEDS: METOCLOPRAMIDE HCL 10 MG/10 ML UDC GT SCH ×3 (09:52→20:25)
[2018-01-20] MEDS: ASCORBIC ACID 500 MG TABLET GT SCH ×2 (09:53→20:25)
[2018-01-20] MEDS: PANTOPRAZOLE GRANULES PACKET 40 MG GT SCH (09:54)
[2018-01-20] MEDS: LACTOBACILLUS RHAMNOSUS GG 1 CAP CAPSULE GT SCH ×2 (09:54→20:25)
[2018-01-20] MEDS: COLISTIMETHATE SODIUM 75 MG in NS 50 ML IV SCH ×2 (09:55→20:31)
[2018-01-20] MEDS: NAPH,MB-DB/K PH,MBDB 250 MG TAB PO SCH ×3 (09:56→20:25)
[2018-01-20] MEDS: MULTIVIT-MINERALS/FERROUS GLUC 15 ML UDC GT SCH ×2 (09:57→20:43)
[2018-01-20] MEDS: LevETIRAcetam 500 MG/5 ML UDC ORAL LIQUID GT SCH ×2 (09:58→20:27)
[2018-01-20] MEDS: BALSAM PERU/CASTOR OIL 60 GM OINT...G. TP SCH (09:59)
[2018-01-20] MEDS: CALCIUM CARBONATE/VITAMIN D3 1 TAB TABLET GT SCH ×2 (10:03→20:26)
[2018-01-20] MEDS ORDERED: POTASSIUM CHLORIDE 20 MEQ/PKT PACKET GT ONE (10:15)
[2018-01-20] MEDS: POTASSIUM CHLORIDE 20 MEQ/PKT PACKET GT SCH (10:18)
[2018-01-20 10:32] LABS: ATYPICAL LYMPHOCYTES % 0 % (0-0); BAND % (MANUAL) 5 % (0-6); BASOPHILS % (MANUAL) 0 % (0-2); EOSINOPHILS % (MANUAL) 3 % (0-7); LYMPHOCYTES % (MANUAL) 10 % (20-46); MONOCYTES % (MANUAL) 13 % (0-11)
--- NOTE | 2018-01-20 12:00 | NUR ---
Tube feeding held, d/t residual 150. No water flush given. Will continue to monitor.
--- NOTE | 2018-01-20 12:15 | NUR ---
Performed wound care and dressing change. Pt tolerated well. No signs of distress noted.
--- NOTE | 2018-01-20 14:00 | NUR ---
GT residual decrease to 0 ml, resumed tube feeding and administered cindy and prosource.
--- NOTE | 2018-01-20 16:46 | NUR ---
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 Per RN, pt was reported to have vomited yesterday, and therefore TPN order was made by MD, however, TPN order was stopped, and TF was resumed this morning instead. Per RN, Dr. Valentine wanted pt to start on TF rate of 20 ml/hr, and Dr. Griffin wants for pt to reach 30 ml/hr, before advancing to TF goal rate of 40 ml/hr, as previously prescribed. RN stated that pt had 150 ml residuals this morning, and that she is monitoring TF residuals, and adjusting as needed. Per EMR, TF Intakes: 160 ml 01/20/18. Residuals: 150 ml 01/20/18. Abd is soft w/ active bowel sounds. I/O: 1180/1250 (-70 ml) per 12 hours. Pt is not yet meeting optimal nutritional needs. Current Diet Order/Nutrition Support Glucerna at 20 ml/hr, Marqeus BID, Prosource TID Free Water Flush: 50CC Q6 via GT x0 days Patient/Significant Other Unable To Verbalize Education Provided Not Indicated Pertinent Medications centrum, ferric sodium gluconate complex/NaCl IV, neutrophos, KCl packet, culturelle, zinc, lactose, os-shorty, VIT C, ferrous sulfate, piperacillin/tazobactam IV, reglan Pertinent Labs Na 149 H, BG 243 H, POC BG 207 H, BUN 79 H, CRE 1.59 H, ALB 1.7 L, Mg 2.2 H Height (Feet) 5 feet Height (Inches) 3.00 inches Weight (Pounds) 152 pounds Weight (Calculated Kilograms) 68.948950 kilograms Patient Weight 68.946 kg Body Mass Index 26.92 kg/m2 %IBW 133 [place]/Adjusted Body Weight IBW: 115 lb, 52 kg. Adj IBW (obesity): 124 lb, 56 kg Recent Weight Change No Weight Status Overweight Last BM Jan 17, 2018 Food Allergies No Usual Diet At Home Unable to assess per EMR Skin Integrity Comment: Jeff scale: 11; per [facility] note 01/17/18: 1. Sacral-Coccygeal area: Pressure ulcer, present on admission. Estimated Energy Expenditure (kcals/day) 1685 kcal/day ([facility] 2002 for critical illness, intubated on vent) Estimated Protein Required (g/day) 67-112 gm/day (1.2-2 gm/kg Adj IBW for sepsis) Estimated Fluid Required (l/day) Per MD (ARF) Problem/Etiology/Signs/Symptoms Inadequate enteral nutrition related to metabolic demands as evidenced by current TF regimen meets 79% of estimated caloric needs and 94% of estimated protein needs. Expected Outcomes/Goals - Monitor tolerance to EN support w/ goal of pt meeting at least 85% of estimated nutritional needs, labs trending WNL, normal GI function, and skin integrity/wt maintenance Dietitian Recommendations * Recommend Glucerna 1.2 at 40 ml/hr, Marques BID, Prosource TID, Free Water Flush: 200CC Q4 via GT Provides: 1508 kcal/day, 108 gm protein/day, and 1973 ml free water/day Meets: 89% of estimated caloric needs and 108% of estimated protein needs Follow Up High Risk: F/U in 2-3 days
--- NOTE | 2018-01-20 16:52 | NUR ---
Dietitian Recommendations * Recommend Glucerna 1.2 at 40 ml/hr, Marques BID, Prosource TID, Free Water Flush: 200CC Q4 via GT Provides: 1508 kcal/day, 108 gm protein/day, and 1973 ml free water/day Meets: 89% of estimated caloric needs and 108% of estimated protein needs LP, RD Please refer to Nutrition F/U for details.
[2018-01-20] MEDS: EPOETIN ALFA 4,000 UNITS/ML VIAL SUBCUT SCH (17:45)
[2018-01-20] MEDS: SOD FERRIC GLUC COMPLEX/SUC 125 MG in NS 100 ML IV SCH ×2 (17:45→19:37)
--- NOTE | 2018-01-20 19:15 | NUR ---
Closing/Endorsement Pt obtunded, no signs of pain or distress noted. Bed locked in lowest position. Call light in reach. Seizure precautions in place with padded side rails. Endorsed plan of care to Jose Angel CARMONA.
--- NOTE | 2018-01-20 19:30 | NUR ---
TRANSFER OF CARE Pt in bed, with eyes open and does not track, chest rise and fall noted. On mechanical ventilator tolerating settings with 94% O2 saturation. Sinus rhythm on the monitor. On contact isolation. Gtube in placed tolerating tubefeeding with no residual noted. Colostomy bag in placed on the left abdomen no redness noted on the site. MARIBEL PICC in placed, patent with good blood return and no redness noted. Sacral wound noted with dressing CDI. Hernandez catheter in placed draining clear yellow urine to gravity. Safety precaution observed, call light within reach. Seizure pads on the side rails. Will continue to monitor Pt.
--- NOTE | 2018-01-20 22:50 | NUR ---
Spoke with Dr. Sheridan regarding Pt's O2 saturation. Orders received will carry out order.
[2018-01-21] VITALS (33 sets, daily range): BP systolic 108–160
--- NOTE | 2018-01-21 | NUR ---
REASSESSMENT Pt in bed, no acute distress at this time. Will continue to monitor Pt.
[2018-01-21] MEDS: IPRATROPIUM BROM 0.5 MG/2.5 ML VIAL.NEB (ATROVENT) INH SCH ×4 (01:42→19:40)
[2018-01-21] MEDS: ALBUTEROL SULFATE 0.083% 2.5 MG/3 ML VIAL.NEB INH SCH ×4 (01:42→19:40)
--- NOTE | 2018-01-21 04:00 | NUR ---
REASSESSMENT Pt in bed, no acute distress at this time. Will continue to monitor Pt.
[2018-01-21] MEDS: PIPERACILLIN/TAZO 2.25G/DEX-IS 50 ML IV SCH ×4 (06:13→23:55)
[2018-01-21] MEDS: 0.45% NACL 1,000 ML IV SCH (06:14)
[2018-01-21 06:50] LABS: ALBUMIN 1.1 g/dL (3.4-4.8); CALCIUM 8.2 mg/dL (8.4-11.0); CREATININE 0.78 mg/dL (0.55-1.30); PHOSPHORUS 3.1 mg/dL (2.7-4.5); POTASSIUM 3.3 mmol/L (3.5-5.1); TOTAL BILIRUBIN 0.3 mg/dL (0.0-1.0)
[2018-01-21 07:20] LABS: BASOPHILS % (AUTO) 0.5 % (0.0-2.0); EOSINOPHILS # (AUTO) 0.2 K/uL (0.0-0.4); LYMPHOCYTES # (AUTO) 1.1 K/uL (1.0-5.5); LYMPHOCYTES % (AUTO) 14.9 % (20.5-51.5); MEAN CORPUSCULAR HEMOGLOBIN 25 pg (27-31); MEAN CORPUSCULAR HGB CONC 32 % (32-36); MEAN CORPUSCULAR VOLUME 76 fL (79.0-98.0); MONOCYTES # (AUTO) 0.1 K/uL (0.0-1.0); MONOCYTES % (AUTO) 1.4 % (1.7-9.3); NEUTROPHILS # (AUTO) 5.8 K/uL (1.8-7.7); NEUTROPHILS % (AUTO) 80.2 % (40.0-70.0); RED BLOOD CELL COUNT(AUTO) 2.67 MIL/uL (4.2-6.2); RED CELL DISTRIBUTION WIDTH 22.8 % (9.0-15.0); WHITE BLOOD COUNT (AUTO) 7.2 K/uL (4.8-10.8)
[2018-01-21 07:22] LABS: PLATELET COUNT (AUTO) 105 K/uL (130-430)
[2018-01-21 07:23] LABS: HEMOGLOBIN 6.5 g/dL (12.0-16.0)
[2018-01-21 07:24] LABS: HEMATOCRIT 20.3 % (36-48)
--- NOTE | 2018-01-21 07:26 | NUR ---
CLOSING NOTES Pt in bed, no acute distress at this time. IV lines and skin checked. Gave report to AM shift RN.
--- NOTE | 2018-01-21 07:42 | NUR ---
MADE DR BYRNES AWARE OF CRITICAL H&H, ORDERS RECEIVED.
[2018-01-21] MEDS: FERROUS SULFATE 300 MG/5 ML UDC GT SCH ×3 (07:43→17:11)
[2018-01-21] MEDS: METOCLOPRAMIDE HCL 10 MG/10 ML UDC GT SCH ×3 (08:13→21:04)
[2018-01-21] MEDS: COLISTIMETHATE SODIUM 75 MG in NS 50 ML IV SCH ×2 (08:13→21:41)
[2018-01-21] MEDS: LACTULOSE 20 GM/30 ML UDC GT SCH ×2 (08:14→21:03)
[2018-01-21] MEDS: ACETAMINOPHEN 650 MG/20.3 ML UDC GT PRN ×2 (08:14→22:15)
[2018-01-21] MEDS: CALCIUM CARBONATE/VITAMIN D3 1 TAB TABLET GT SCH ×2 (08:15→21:03)
[2018-01-21] MEDS: NAPH,MB-DB/K PH,MBDB 250 MG TAB PO SCH ×3 (08:15→21:03)
[2018-01-21] MEDS: LACTOBACILLUS RHAMNOSUS GG 1 CAP CAPSULE GT SCH ×2 (08:15→21:03)
[2018-01-21] MEDS: PANTOPRAZOLE GRANULES PACKET 40 MG GT SCH (08:15)
[2018-01-21] MEDS: POTASSIUM CHLORIDE 20 MEQ/PKT PACKET GT SCH ×2 (08:15→21:03)
[2018-01-21] MEDS: ASCORBIC ACID 500 MG TABLET GT SCH ×2 (08:15→21:03)
[2018-01-21] MEDS: BALSAM PERU/CASTOR OIL 60 GM OINT...G. TP SCH (08:16)
[2018-01-21] MEDS: LevETIRAcetam 500 MG/5 ML UDC ORAL LIQUID GT SCH ×2 (08:23→21:02)
[2018-01-21] MEDS: MULTIVIT-MINERALS/FERROUS GLUC 15 ML UDC GT SCH ×2 (08:26→21:04)
[2018-01-21] MEDS ORDERED: FUROSEMIDE 20 MG/2 ML VIAL IVP ONE (09:45)
--- NOTE | 2018-01-21 09:50 | NUR ---
DR OAKLEY HERE TO EVALUATE PT. AWARE OF AM LABS/ABG, VENT SETTINGS. AWARE PT TO RECEIVED I UNIT PRBC. ORDERS RECEIVED.
[2018-01-21] MEDS ORDERED: EPOETIN ALFA 4,000 UNITS/ML VIAL SUBCUT ONE (11:30)
[2018-01-21] MEDS ORDERED: PANTOPRAZOLE SODIUM 40 MG/VIAL (PROTONIX) IVP ONE (11:30)
--- NOTE | 2018-01-21 12:10 | NUR ---
DR BYRNES HERE TO EVALUATE PT. ORDERS RECEIVED.
--- NOTE | 2018-01-21 12:15 | NUR ---
TUBE FEEDING RATE INCREASED TO 50ML/HR PER ORDERS BY DR BYRNES, TO INCREASE TO 60ML/HR AT END OF SHIFT IF PT TOLERATING.
--- NOTE | 2018-01-21 12:30 | NUR ---
BT INITIATION: Consent signed agreeing to administration of blood. Blood has been type and crossmatched. Blood sent from blood bank. Information on unit of blood checked against patient wristband at bedside by two nurses. All information matches. Patient or responsible libertarian informed of potential complications associated with blood transfusion. Informed of possible transfusion reaction symptoms. Aware of need to notify nurse at once of itching, shortness of breath, flushing, feeling of impending doom, or other symptoms not previously present. Vital signs taken within 5 minutes prior to initiation of transfusion. RN will remain with patient for first 15 minutes of transfusion at which time vital signs will be re-assessed.
[2018-01-21] MEDS ORDERED: MAGNESIUM SULFATE 1 GM in NS 100 ML IV ONE (13:15)
[2018-01-21 16:47] LABS: BASOPHILS % (AUTO) 0.3 % (0.0-2.0); EOSINOPHILS # (AUTO) 0.2 K/uL (0.0-0.4); EOSINOPHILS % (AUTO) 2.6 % (0.0-4.0); HEMATOCRIT 26.4 % (36-48); HEMOGLOBIN 8.7 g/dL (12.0-16.0); LYMPHOCYTES % (AUTO) 13.5 % (20.5-51.5); MEAN CORPUSCULAR HEMOGLOBIN 26 pg (27-31); MEAN CORPUSCULAR HGB CONC 33 % (32-36); MEAN CORPUSCULAR VOLUME 78 fL (79.0-98.0); MONOCYTES # (AUTO) 0.3 K/uL (0.0-1.0); MONOCYTES % (AUTO) 3.8 % (1.7-9.3); NEUTROPHILS # (AUTO) 6.2 K/uL (1.8-7.7); NEUTROPHILS % (AUTO) 79.8 % (40.0-70.0); PLATELET COUNT (AUTO) 93 K/uL (130-430); RED BLOOD CELL COUNT(AUTO) 3.41 MIL/uL (4.2-6.2); RED CELL DISTRIBUTION WIDTH 23.2 % (9.0-15.0); WHITE BLOOD COUNT (AUTO) 7.7 K/uL (4.8-10.8)
--- NOTE | 2018-01-21 17:35 | NUR ---
WOUND CARE COMPLETED PER ORDERS. PT TOLERATED WELL, VSS.
[2018-01-21] MEDS: SOD FERRIC GLUC COMPLEX/SUC 125 MG in NS 100 ML IV SCH (17:53)
--- NOTE | 2018-01-21 17:59 | NUR ---
TUBE FEEDING INCREASED TO 60ML/HR PER ORDERS BY DR BYRNES. PT TOLERATING FEEDING WELL AT THIS TIME.
--- NOTE | 2018-01-21 19:40 | NUR ---
PM Assessment Pt in bed. Obtunded. Pt has ETT in place. Saturations maintained above 95%. SR shown on monitor. No s/s of distress noted. Hernandez catheter in place draining yellow urine to gravity. Bowel sounds active and present. Pt has G-tube running tubefeeding. No residual noted. Pt has colostomy in place. Pt has MARIBEL PICC line. Site is C/D/I. Blood return present and flushed with NS. SCDs in place. Bed locked in lowest position, safety precautions in place, and call light in reach. Will continue to monitor.
[2018-01-21] MEDS: PANTOPRAZOLE SODIUM 40 MG/VIAL (PROTONIX) IVP SCH (21:04)
[2018-01-22] VITALS (30 sets, daily range): BP systolic 94–143
[2018-01-22] MEDS: IPRATROPIUM BROM 0.5 MG/2.5 ML VIAL.NEB (ATROVENT) INH SCH ×3 (01:36→19:33)
[2018-01-22] MEDS: ALBUTEROL SULFATE 0.083% 2.5 MG/3 ML VIAL.NEB INH SCH ×3 (01:36→19:32)
--- NOTE | 2018-01-22 01:40 | NUR ---
RN Rounds Pt asleep in bed. no s/s of distress noted. VSS. Will continue to monitor.
--- NOTE | 2018-01-22 04:00 | NUR ---
RN rounds Pt asleep in bed. no s/s of distress noted. VSS. Will continue to monitor.
[2018-01-22 05:11] LABS: BASOPHILS % (AUTO) 0.2 % (0.0-2.0); EOSINOPHILS # (AUTO) 0.3 K/uL (0.0-0.4); EOSINOPHILS % (AUTO) 2.9 % (0.0-4.0); HEMATOCRIT 24.1 % (36-48); HEMOGLOBIN 7.9 g/dL (12.0-16.0); LYMPHOCYTES # (AUTO) 1.2 K/uL (1.0-5.5); LYMPHOCYTES % (AUTO) 13.4 % (20.5-51.5); MEAN CORPUSCULAR HEMOGLOBIN 25 pg (27-31); MEAN CORPUSCULAR HGB CONC 33 % (32-36); MEAN CORPUSCULAR VOLUME 78 fL (79.0-98.0); MONOCYTES # (AUTO) 0.3 K/uL (0.0-1.0); NEUTROPHILS % (AUTO) 80.5 % (40.0-70.0); RED CELL DISTRIBUTION WIDTH 23.3 % (9.0-15.0); WHITE BLOOD COUNT (AUTO) 8.8 K/uL (4.8-10.8)
[2018-01-22 05:34] LABS: ALBUMIN 1.1 g/dL (3.4-4.8); CALCIUM 8.1 mg/dL (8.4-11.0); CREATININE 0.7 mg/dL (0.55-1.30); PHOSPHORUS 3.1 mg/dL (2.7-4.5); POTASSIUM 4.2 mmol/L (3.5-5.1); TOTAL BILIRUBIN 0.3 mg/dL (0.0-1.0)
[2018-01-22] MEDS: 0.45% NACL 1,000 ML IV SCH (06:21)
[2018-01-22] MEDS: PIPERACILLIN/TAZO 2.25G/DEX-IS 50 ML IV SCH ×4 (06:21→23:49)
--- NOTE | 2018-01-22 07:00 | NUR ---
MD called Spoke with Dr. Valentine regarding Pt's low plt count. No new orders received. Will continue to monitor.
[2018-01-22] MEDS: FERROUS SULFATE 300 MG/5 ML UDC GT SCH ×3 (07:14→16:22)
--- NOTE | 2018-01-22 07:15 | NUR ---
Endorsement Pt remains in bed. No s/s of distress noted. VSS. PICC line site C/D/I. Report given to oncoming RN at bedside via SBAR approach.
[2018-01-22] MEDS: LevETIRAcetam 500 MG/5 ML UDC ORAL LIQUID GT SCH ×2 (08:04→20:49)
[2018-01-22] MEDS: LACTULOSE 20 GM/30 ML UDC GT SCH ×2 (08:04→20:47)
[2018-01-22] MEDS: MULTIVIT-MINERALS/FERROUS GLUC 15 ML UDC GT SCH ×2 (08:04→20:50)
[2018-01-22] MEDS: POTASSIUM CHLORIDE 20 MEQ/PKT PACKET GT SCH ×2 (08:05→20:48)
[2018-01-22] MEDS: METOCLOPRAMIDE HCL 10 MG/10 ML UDC GT SCH ×3 (08:05→20:48)
[2018-01-22] MEDS: ASCORBIC ACID 500 MG TABLET GT SCH ×2 (08:06→20:48)
[2018-01-22] MEDS: LACTOBACILLUS RHAMNOSUS GG 1 CAP CAPSULE GT SCH ×2 (08:06→20:48)
[2018-01-22] MEDS: NAPH,MB-DB/K PH,MBDB 250 MG TAB PO SCH ×3 (08:06→20:48)
[2018-01-22] MEDS: PANTOPRAZOLE SODIUM 40 MG/VIAL (PROTONIX) IVP SCH ×2 (08:07→20:48)
[2018-01-22] MEDS: CALCIUM CARBONATE/VITAMIN D3 1 TAB TABLET GT SCH ×2 (08:08→20:47)
[2018-01-22] MEDS: BALSAM PERU/CASTOR OIL 60 GM OINT...G. TP SCH (08:08)
[2018-01-22] MEDS: COLISTIMETHATE SODIUM 75 MG in NS 50 ML IV SCH ×2 (09:11→20:51)
--- NOTE | 2018-01-22 09:18 | NUR ---
MADE DR OAKLEY AWARE OF ABG RESULTS. ORDERS RECEIVED.
--- NOTE | 2018-01-22 09:45 | NUR ---
RT INCREASED VENT FIO2 TO 50% PER ORDERS BY DR OAKLEY. O2 SAT 99% AT THIS TIME. WILL CONTINUE TO MONITOR.
--- NOTE | 2018-01-22 10:53 | NUR ---
WOUND CARE COMPLETED PER ORDERS.
--- NOTE | 2018-01-22 11:21 | NUR ---
Called Dr. Rangel with a consult, Dr. Cunningham station mechanic apprentice today.
[2018-01-22] MEDS ORDERED: CHOLECALCIFEROL (VITAMIN D3) 2,000 UNIT TABLET GT SCH (11:30)
[2018-01-22] MEDS ORDERED: MAGNESIUM SULFATE 50 ML IV ONE (11:45)
--- NOTE | 2018-01-22 11:45 | NUR ---
DR BYRNES HERE TO EVALUATE PT. ORDERS RECEIVED.
--- NOTE | 2018-01-22 11:48 | NUR ---
BONI Judge from LAB called and informed that previous platelet count was incorrect. The correct platelet count is 120,000, confirmed that no other labs are of error.
[2018-01-22 11:53] LABS: PLATELET COUNT (AUTO) 120 K/uL (130-430)
--- NOTE | 2018-01-22 12:00 | NUR ---
DR DAVILA HERE TO EVALUATE PT. WANTS IVPB ZOSYN HELD FOR NOW D/T LOW PLATELETS. WILL DISCUSS WITH DR TRIPATHI.
[2018-01-22 12:45] LABS: INR 1.1 (0.8-1.2); PROTHROMBIN TIME 11.2 SECS (9.5-12.5)
[2018-01-22 13:30] LABS: TOTAL IRON BIND. CAPACITY 72 ug/dL (250-450)
[2018-01-22] MEDS: ACETAMINOPHEN 650 MG/20.3 ML UDC GT PRN (14:34)
[2018-01-22] MEDS: LORazepam 2 MG/ML VIAL IVP PRN (15:13)
[2018-01-22] MEDS: EPOETIN ALFA 4,000 UNITS/ML VIAL SUBCUT SCH (16:22)
--- NOTE | 2018-01-22 17:00 | NUR ---
DR TRIPATHI PAGED REGARDING ABX TX AND DR DAVILA WANTING ZOSYN TO BE HELD. AWAITING RETURN CALL.
[2018-01-22] MEDS: SOD FERRIC GLUC COMPLEX/SUC 125 MG in NS 100 ML IV SCH (17:23)
--- NOTE | 2018-01-22 18:01 | NUR ---
SPOKE TO DR BYRNES REGARDING LOW PLATELETS AND 1200 ZOSYN BEING HELD, WANTS 1800 DOSE GIVEN.
--- NOTE | 2018-01-22 19:30 | NUR ---
PM ASSESSMENT REPORT RECEIVED FROM LORRAINE CARMONA. PT RECEIVED IN BED WITH EYES CLOSED, RESPONDING TO TACTILE STIMULATION. PT INTUBATED, VENT SETTINGS: AC 18, TV 500, FIO2 50%, PEEP 5. SR ON MONITOR. MARIBEL PICC INFUSING 1/2 NS @ 30 CC/HR. G-TUBE IN PLACE RUNNING GLUCERNA TUBEFEEDING @ 50 CC/HR. LT SIDED COLOSTOMY BAG IN PLACE DRAINING LOOSE BROWN STOOL. MANJARREZ CATH IN PLACE DRAINING YELLOW URINE WITH SEDIMENTS TO GRAVITY. SCDs IN PLACE. HOB ELEVATED, BED IN LOWEST POSITION, CALL LIGHT IN REACH. WILL CONTINUE TO MONITOR PT.
--- NOTE | 2018-01-22 22:29 | NUR ---
FAMILY UPDATE DAUGHTER SHARITA CALLED IN UNIT FOR UPDATES ON HER MOTHER. SHARITA UPDATED ON PT CONDITION AND ALL QUESTIONS AND CONCERNS ADDRESSED AT THIS TIME.
[2018-01-23] VITALS (28 sets, daily range): BP systolic 92–145
[2018-01-23] MEDS: ALBUTEROL SULFATE 0.083% 2.5 MG/3 ML VIAL.NEB INH SCH ×4 (00:53→19:35)
[2018-01-23] MEDS: IPRATROPIUM BROM 0.5 MG/2.5 ML VIAL.NEB (ATROVENT) INH SCH ×4 (00:54→19:35)
--- NOTE | 2018-01-23 01:24 | NUR ---
RN ROUNDS PT RESTING COMFORTABLY IN BED AT THIS TIME. VSS, NO S/S OF ACUTE DISTRESS NOTED. PT REPOSITIONED AND ORAL CARE PROVIDED AT THIS TIME. MANJARREZ CATH FOUND TO BE LEAKING, LINENS CHANGED, JOAN CARE AND MANJARREZ CATH CARE PROVIDED. PT TOLERATED WELL. WILL CONTINUE TO MONITOR PT.
--- NOTE | 2018-01-23 03:15 | NUR ---
MANJARREZ CATH: # 28 FR Manjarrez catheter with 10 cc bulb inserted with use of sterile technique. Bulb inflated with 10 cc sterile water. Immediate return of 10 cc YELLOW urine noted. Bedside drainage bag placed below level of bladder. Pt tolerated procedure WELL. Addendum: 01/23/18 at 0400 by Sada Quiroz RN PREVIOUS MANJARREZ CATH CONTINUALLY LEAKING.
[2018-01-23] MEDS: FERROUS SULFATE 300 MG/5 ML UDC GT SCH ×3 (06:01→18:19)
[2018-01-23 06:53] LABS: ALBUMIN 1.1 g/dL (3.4-4.8); CALCIUM 8.4 mg/dL (8.4-11.0); CREATININE 0.87 mg/dL (0.55-1.30); POTASSIUM 5.1 mmol/L (3.5-5.1); TOTAL BILIRUBIN 0.2 mg/dL (0.0-1.0)
[2018-01-23 06:56] LABS: BASOPHILS % (AUTO) 0.2 % (0.0-2.0); EOSINOPHILS # (AUTO) 0.2 K/uL (0.0-0.4); EOSINOPHILS % (AUTO) 1.8 % (0.0-4.0); HEMOGLOBIN 9.1 g/dL (12.0-16.0); LYMPHOCYTES # (AUTO) 1.1 K/uL (1.0-5.5); LYMPHOCYTES % (AUTO) 10.7 % (20.5-51.5); MEAN CORPUSCULAR HEMOGLOBIN 26 pg (27-31); MEAN CORPUSCULAR HGB CONC 34 % (32-36); MEAN CORPUSCULAR VOLUME 79 fL (79.0-98.0); MONOCYTES # (AUTO) 0.3 K/uL (0.0-1.0); MONOCYTES % (AUTO) 2.9 % (1.7-9.3); PLATELET COUNT (AUTO) 151 K/uL (130-430); RED BLOOD CELL COUNT(AUTO) 3.43 MIL/uL (4.2-6.2); RED CELL DISTRIBUTION WIDTH 23.1 % (9.0-15.0); WHITE BLOOD COUNT (AUTO) 10.6 K/uL (4.8-10.8)
--- NOTE | 2018-01-23 07:15 | NUR ---
AM Assessment Received pt obtunded/lethargic, opens eyes to tactile stimuli, unable to follow commands. Pt in no signs of pain or distress. Intubated to vent. Skin warm and dry. PICC line in place with IVF. GT with TF. Hernandez in place with yellow/hiram urine. Bed locked in lowest position. Call light in reach. Seizure precautions in place. Will continue to monitor.
[2018-01-23] MEDS: COLISTIMETHATE SODIUM 75 MG in NS 50 ML IV SCH ×2 (09:07→21:23)
[2018-01-23] MEDS: METOCLOPRAMIDE HCL 10 MG/10 ML UDC GT SCH ×3 (09:07→21:23)
[2018-01-23] MEDS: NAPH,MB-DB/K PH,MBDB 250 MG TAB PO SCH ×3 (09:07→21:22)
[2018-01-23] MEDS: LACTULOSE 20 GM/30 ML UDC GT SCH ×2 (09:07→21:23)
[2018-01-23] MEDS: ASCORBIC ACID 500 MG TABLET GT SCH ×2 (09:08→21:22)
[2018-01-23] MEDS: POTASSIUM CHLORIDE 20 MEQ/PKT PACKET GT SCH (09:08)
[2018-01-23] MEDS: LACTOBACILLUS RHAMNOSUS GG 1 CAP CAPSULE GT SCH ×2 (09:08→21:23)
[2018-01-23] MEDS: PANTOPRAZOLE SODIUM 40 MG/VIAL (PROTONIX) IVP SCH ×2 (09:08→21:23)
[2018-01-23] MEDS: BALSAM PERU/CASTOR OIL 60 GM OINT...G. TP SCH (09:10)
[2018-01-23] MEDS: MULTIVIT-MINERALS/FERROUS GLUC 15 ML UDC GT SCH ×2 (09:13→21:23)
[2018-01-23] MEDS: LevETIRAcetam 500 MG/5 ML UDC ORAL LIQUID GT SCH ×2 (09:13→21:25)
[2018-01-23] MEDS: CALCIUM CARBONATE/VITAMIN D3 1 TAB TABLET GT SCH ×2 (09:14→21:24)
--- NOTE | 2018-01-23 10:00 | NUR ---
Dopamine drip started at 5 mcg/min per Dr. Griffin's orders for maintaining HR at 50. BP stable prior to start of infusion, Dr. Griffin aware.
[2018-01-23] MEDS: CHOLECALCIFEROL (VITAMIN D3) 2,000 UNIT TABLET GT SCH (10:04)
[2018-01-23 12:27] LABS: NEUTROPHILS % (AUTO) 84.4 % (40.0-70.0)
[2018-01-23] MEDS: CEFEPIME 1 GM in D5W 50 ML IV SCH (13:13)
--- NOTE | 2018-01-23 13:50 | NUR ---
CHG bath and wound care done per MD orders. Pt tolerated well.
--- NOTE | 2018-01-23 14:15 | NUR ---
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 TF running at 60ml/hr since 01/21/181999, although diet order remains at 40ml/hr. RD s/w RN re: TF rate, RN corrected rate back to 40ml/hr as previously ordered w/ Marques and Prosource TID. RN also reported no residual this morning. RD obtained wt w/ bed scale: 187 lb (01/23). Per EMR, abd is soft and non-distended w/ active bowel sounds. I/O: 1080/1440 -360ml, IV total intake 360ml, TF intake 1220ml/24 hrs 01/22. Last BM 01/23 505ml. Current TF rate of 60ml/hr is providin kcal (123% of estimated calorie needs) and 136 gm protein (121% of upper end of estimated protein needs). Pt is possibly being overfed w/ wrong TF infusion rate vs TF order. Current Diet Order/Nutrition Support Glucerna at 40 ml/hr, Marques BID, Prosource TID Free Water Flush: 50CC Q6 via GT x3 days Patient/Significant Other Unable To Verbalize Education Provided Not Indicated Pertinent Medications centrum, ferric sodium gluconate complex/NaCl IV, neutraphos, KCl packet, culturelle, zinc, lactulose, os-shorty, VIT C, ferrous sulfate, VIT D, protonix, keppra Pertinent Labs Na 142 WNL (improved), BG 135 H, POC BG 123 H, BUN 31 H, CRE .87 WNL,(improved), ALB 1.1 L, Mg 1.3 H, H/H 9.1 L/27L Height (Feet) 5 feet Height (Inches) 3.00 inches Weight (Pounds) 152 pounds (01/17) BED SCALE WT: 186.5 lb (01/23) ---may be inaccurate d/t blankets/pillows Weight (Calculated Kilograms) 68.745258 kilograms Patient Weight 68.946 kg Body Mass Index 26.92 kg/m2 %IBW 133 [place]/Adjusted Body Weight IBW: 115 lb, 52 kg. Adj IBW (obesity): 124 lb, 56 kg Recent Weight Change No Weight Status Overweight Last BM Jan 23, 2018 Food Allergies No Usual Diet At Home Unable to assess per EMR Skin Integrity Comment: Jeff scale: 11; per [facility] note 01/17/18: 1. Sacral-Coccygeal area: Pressure ulcer, present on admission. Estimated Energy Expenditure (kcals/day) 1685 kcal/day ([facility] 2002 for critical illness, intubated on vent) Estimated Protein Required (g/day) 67-112 gm/day (1.2-2 gm/kg Adj IBW for sepsis) Estimated Fluid Required (l/day) Per MD (ARF) Problem/Etiology/Signs/Symptoms Inadequate enteral nutrition related to metabolic demands as evidenced by current TF regimen meets 79% of estimated caloric needs and 94% of estimated protein needs. *improved Expected Outcomes/Goals - Monitor tolerance to EN support w/ goal of pt meeting at least 85% of estimated nutritional needs, labs trending WNL, normal GI function, and skin integrity/wt maintenance Dietitian Recommendations * Recommend Glucerna 1.2 at 40 ml/hr, Marques BID, Prosource TID, Free Water Flush: 200CC Q4 via GT Provides: 1508 kcal/day, 108 gm protein/day, and 1973 ml free water/day Meets: 89% of estimated caloric needs and 108% of estimated protein needs Follow Up High Risk: F/U in 2-3 days
--- NOTE | 2018-01-23 14:24 | NUR ---
Dietitian Recommendations * Recommend Glucerna 1.2 at 40 ml/hr, Marques BID, Prosource TID, Free Water Flush: 200CC Q4 via GT Provides: 1508 kcal/day, 108 gm protein/day, and 1973 ml free water/day Meets: 89% of estimated caloric needs and 108% of estimated protein needs. Please see Nutrition F/U note for details. CARLITOS, RD
--- NOTE | 2018-01-23 15:25 | NUR ---
WOUND RE-EVALUATION: Late note for 1524 secondary to patient care. Patient received in a [place] Bed with an Isoflex ENE mattress with low air-loss therapy, awake, alert, nonverbal, nonresponsive to verbal commands. Patient is unable to turn in bed independently. Jeff Score is an 11. Intrinsic factors that delay wound healing: Diabetes Mellitus, Anemia. Extrinsic factors that delay wound healing: Immobility. Microbiology: Blood culture results 2 negative. Urine culture results positive for Escherichia coli (ESBL, MDRO). Endotracheal sputum results positive for Acinetobacter Baumannii/Haemolyticus (COST ESTIMATING ENGINEER, MDRO). Stool OB culture negative. Wound Assessment: 1. Sacral-Coccygeal area: Stage IV Pressure ulcer, present on admission. Wound bed has 30% yellow tissue, 55% pink tissue, 15% black tissue. No odor, small sanguineous drainage. Dark discolored tissue present on surrounding tissue. Wound measures 4.0 cm 4.0 cm x 4.5 cm (wound measured by attending RN). Undermining present from 11-2 o-clock, deepest 1.9 cm at 1 o'clock. Recommend: Cleanse wound with normal saline. Place moisture barrier cream onto bowen-wound. Apply thick coat of Venelex ointment onto wound bed, then Hydrogel. Pack wound with two 2.2 inch TenderWet dressings, pushing one dressing into undermined area. Cover with Sacral foam dressing. Perform wound care daily, and as needed for dressing soiling or dislodgement. Also recommend: Reposition patient side to side only every hour with pillow support (place a wedge underneath the trunk and the pillow underneath the buttock and posterior thigh to allow the sacrococcygeal area to float freely at all times). Off-load pressure areas with pillows for pressure re-distribution. Offload, elevate and float bilateral heels with one pillow lengthwise under each extremity at all times. Perform skin care and monitor skin integrity Q shift. Use moisture barrier cream on buttocks and other moisture susceptible areas QID and as needed for soiling. Maintain patient on a low air-loss mattress.
[2018-01-23] MEDS: SOD FERRIC GLUC COMPLEX/SUC 125 MG in NS 100 ML IV SCH (18:20)
--- NOTE | 2018-01-23 19:15 | NUR ---
Closing/Endorsement Pt remains obtunded. No signs of pain or distress noted. Replaced colostomy bag. Endorsed plan of care to Kai CARMONA.
--- NOTE | 2018-01-23 19:35 | NUR ---
PM Assessment Pt in bed. Obtunded. ETT in place. Sinus Tachycardia shown on monitor. No s/s of distress noted. Hernandez catheter in place draining yellow urine to gravity. Pt has colostomy. G-tube in place. No residual noted. Pt has MARIBEL PICC line. Site is C/D/I. Skin not intact. Q1H turns interventions in place. Bed locked in lowest position, safety precautions in place, and call light in reach. Will continue to monitor.
[2018-01-23] MEDS: 0.45% NACL 1,000 ML IV SCH (21:22)
[2018-01-24] VITALS (27 sets, daily range): BP systolic 74–122
[2018-01-24] MEDS: ALBUTEROL SULFATE 0.083% 2.5 MG/3 ML VIAL.NEB INH SCH ×4 (00:53→19:36)
[2018-01-24] MEDS: IPRATROPIUM BROM 0.5 MG/2.5 ML VIAL.NEB (ATROVENT) INH SCH ×4 (00:53→19:37)
--- NOTE | 2018-01-24 02:35 | NUR ---
RN Rounds Pt in bed asleep. VSS. No s/s of distress noted. Will continue to monitor.
--- NOTE | 2018-01-24 04:30 | NUR ---
RN Rounds Pt in bed asleep. No s/s of distress or discomfort. VSS. Will continue to monitor.
[2018-01-24 06:08] LABS: FOLATE (FOLIC ACID) >20.0 ng/mL (>3.0)
[2018-01-24 06:09] LABS: ALBUMIN 1.2 g/dL (3.4-4.8); CALCIUM 8.3 mg/dL (8.4-11.0); CREATININE 0.82 mg/dL (0.55-1.30); POTASSIUM 4.5 mmol/L (3.5-5.1); TOTAL BILIRUBIN 0.3 mg/dL (0.0-1.0)
[2018-01-24] MEDS: ACETAMINOPHEN 650 MG/20.3 ML UDC GT PRN (06:30)
[2018-01-24] MEDS: FERROUS SULFATE 300 MG/5 ML UDC GT SCH ×3 (06:30→18:00)
[2018-01-24 06:48] LABS: BASOPHILS % (AUTO) 0.2 % (0.0-2.0); EOSINOPHILS # (AUTO) 0.2 K/uL (0.0-0.4); EOSINOPHILS % (AUTO) 1.6 % (0.0-4.0); HEMOGLOBIN 8.6 g/dL (12.0-16.0); LYMPHOCYTES # (AUTO) 1.4 K/uL (1.0-5.5); LYMPHOCYTES % (AUTO) 10.8 % (20.5-51.5); MEAN CORPUSCULAR HEMOGLOBIN 26 pg (27-31); MEAN CORPUSCULAR HGB CONC 32 % (32-36); MEAN CORPUSCULAR VOLUME 81 fL (79.0-98.0); MONOCYTES # (AUTO) 0.5 K/uL (0.0-1.0); MONOCYTES % (AUTO) 3.5 % (1.7-9.3); NEUTROPHILS # (AUTO) 11.1 K/uL (1.8-7.7); NEUTROPHILS % (AUTO) 83.9 % (40.0-70.0); RED BLOOD CELL COUNT(AUTO) 3.34 MIL/uL (4.2-6.2); RED CELL DISTRIBUTION WIDTH 23.5 % (9.0-15.0); WHITE BLOOD COUNT (AUTO) 13.2 K/uL (4.8-10.8)
--- NOTE | 2018-01-24 07:15 | NUR ---
Endorsement Report given to oncoming RN at bedside via SBAR approach. Pt remains in bed asleep. No s/s of distress noted.
--- NOTE | 2018-01-24 07:20 | NUR ---
AM Assessment Received pt obtunded, unable to follow commands, opens eyes to noxious stimuli. Pt in no signs of distress or pain at this time. Respirations even and unlabored on ETT to vent. PICC MARIBEL intact, dry, IVF infusing. GT in place with TF. SR on panel monitor. Hernandez in place with yellow urine. Colostomy with loose stool. Pt offloaded with pillows. SCDs in place. Seizure precautions in place with padded side rails. Bed locked in lowest position. Call light in reach. Will continue to monitor.
--- NOTE | 2018-01-24 08:00 | NUR ---
RT NOTES DECREASED FIO2 TO 40% AT THIS TIME. CURRENT SPO2 94%. RN GHAZAL NOTIFIED. WILL CONTINUE MONITORING.
--- NOTE | 2018-01-24 08:01 | NUR ---
FiO2 changed to 40% by Ella MCGEE per MD order. Pt tolerating well, O2 sat 94%. Will continue to monitor.
--- NOTE | 2018-01-24 08:22 | NUR ---
Paged Dr. Griffin for orders. Noted consecutive low BP readings. Waiting for call back.
[2018-01-24 08:25] LABS: PLATELET COUNT (AUTO) 213 K/uL (130-430)
--- NOTE | 2018-01-24 08:30 | NUR ---
Dr. Griffin return call, states to "give 250 ml bolus, then monitor BP." New orders made and carried out.
--- NOTE | 2018-01-24 08:45 | NUR ---
Dr. Griffin at bedside examining pt. Dr. Griffin states, "If BP is still low, give another bolus of 250 NS. If BP is still low after that, give me a call." New orders made and carried out. Will continue to monitor.
[2018-01-24] MEDS: LACTULOSE 20 GM/30 ML UDC GT SCH ×2 (08:54→21:47)
[2018-01-24] MEDS: LACTOBACILLUS RHAMNOSUS GG 1 CAP CAPSULE GT SCH ×2 (08:54→21:46)
[2018-01-24] MEDS: PANTOPRAZOLE SODIUM 40 MG/VIAL (PROTONIX) IVP SCH ×2 (08:54→21:46)
[2018-01-24] MEDS: CALCIUM CARBONATE/VITAMIN D3 1 TAB TABLET GT SCH ×2 (08:55→21:46)
[2018-01-24] MEDS: CHOLECALCIFEROL (VITAMIN D3) 2,000 UNIT TABLET GT SCH (08:55)
[2018-01-24] MEDS: NAPH,MB-DB/K PH,MBDB 250 MG TAB PO SCH ×3 (08:55→21:46)
[2018-01-24] MEDS: METOCLOPRAMIDE HCL 10 MG/10 ML UDC GT SCH ×3 (08:55→21:46)
[2018-01-24] MEDS: COLISTIMETHATE SODIUM 75 MG in NS 50 ML IV SCH ×2 (08:56→21:44)
[2018-01-24] MEDS: LevETIRAcetam 500 MG/5 ML UDC ORAL LIQUID GT SCH ×2 (08:56→21:47)
[2018-01-24] MEDS: MULTIVIT-MINERALS/FERROUS GLUC 15 ML UDC GT SCH ×2 (08:57→21:46)
[2018-01-24] MEDS: BALSAM PERU/CASTOR OIL 60 GM OINT...G. TP SCH (08:58)
[2018-01-24] MEDS: ASCORBIC ACID 500 MG TABLET GT SCH ×2 (09:00→21:46)
[2018-01-24] MEDS ORDERED: NS 250 ML IV ONE ×2 (09:15)
--- NOTE | 2018-01-24 09:45 | NUR ---
Pt received NS bolus 250 ml, tolerated well with improvement in BP 135/70. Will continue to monitor.
--- NOTE | 2018-01-24 10:39 | NUR ---
Spoke with Maci on the phone regarding her thoguhts on a tracheostomy. She is requesting more days to see if her mom improves. She would like Dr. Baig to try weaning again. I explained that Dr. Baig did not feel like her mom was going to be able to be weaned form the ventilator. She would like to speak to Dr. Baig. Dr. Baig aware.
--- NOTE | 2018-01-24 10:46 | NUR ---
Dr Baig spoke to Maci on the phone and let her know that her mom is headed for a tracheostomy and that she doesn't think she will be able to do any weaning today but will try maybe tomorrow.
[2018-01-24] MEDS: CEFEPIME 1 GM in D5W 50 ML IV SCH (11:37)
--- NOTE | 2018-01-24 11:42 | NUR ---
RT NOTES DECREASED RESPIRATORY RATE TO 14 PER . KRISTINE HARMAN MADE AWARE. WILL CONTINUE MONITORING.
--- NOTE | 2018-01-24 11:43 | NUR ---
Vent setting changed to AC [address] Baig's orders. Pt tolerating well. Will continue to monitor.
[2018-01-24 14:56] LABS: FERRITIN 2823 ng/mL (15-150)
--- NOTE | 2018-01-24 15:00 | NUR ---
CHG bath. linen change, and wound care administered per MD orders. Pt tolerated well. VS stable, afebrile. Offloaded pt on pillows and wedges, elevated all extremities.
--- NOTE | 2018-01-24 16:11 | NUR ---
DC PLANNING Discussed plan of care w Dr Valentine & Dr Baig in nsg station. Dr Baig states spoke w dtr today & upset when discussed Trach. States pt has not been stable to wean off Vent, if stable tomorrow will attempt to try to start to wean. If unable to wean off vent will discuss w dtr again.
[2018-01-24] MEDS ORDERED: EPOETIN ALFA 4,000 UNITS/ML VIAL SUBCUT ONE (17:00)
--- NOTE | 2018-01-24 17:30 | NUR ---
Pt transferred to OR via continuous monitoring and O2 with 2 RNs. OR checklist done, consents signed and placed in chart. Pt tolerated well. Report given to circulating nurse. Addendum: 01/24/18 at 1757 by Alejandra Pond RN INCORRECT PATIENT, PLEASE DISREGARD NOTE
--- NOTE | 2018-01-24 17:57 | NUR ---
Dr. Valentine paged and return call. Asked Dr. Valentine regarding procrit orders, Dr. Valentine states, "Discontinue the routine dose and only give one time dose now." New orders made and carried out. Will continue to monitor.
--- NOTE | 2018-01-24 18:53 | NUR ---
Closing Pt remains obtunded. No signs of pain or distress noted. Offloaded with pillows and wedges. Extremities elevated on pillows. Bed locked in lowest position. Call light in reach.
--- NOTE | 2018-01-24 19:08 | NUR ---
Endorsed plan of care to Kai CARMONA.
--- NOTE | 2018-01-24 19:34 | NUR ---
PM Assessment Pt in bed. Obtunded. ETT in place. SR shown on monitor. No s/s of distress noted. Hernandez catheter in place draining yellow urine to gravity. Pt has colostomy. G-tube in place. No residual noted. Pt has MARIBEL PICC line. Site is C/D/I. Skin not intact. Q1H turns interventions in place. Bed locked in lowest position, safety precautions in place, and call light in reach. Will continue to monitor.
[2018-01-25] VITALS (32 sets, daily range): BP systolic 95–123
[2018-01-25] MEDS: ALBUTEROL SULFATE 0.083% 2.5 MG/3 ML VIAL.NEB INH SCH ×4 (01:10→19:56)
[2018-01-25] MEDS: IPRATROPIUM BROM 0.5 MG/2.5 ML VIAL.NEB (ATROVENT) INH SCH ×4 (01:10→19:55)
--- NOTE | 2018-01-25 03:00 | NUR ---
RN Rounds Pt in bed asleep. No s/s of distress or discomfort noted. VSS. Will continue to monitor.
[2018-01-25] MEDS: ACETAMINOPHEN 650 MG/20.3 ML UDC GT PRN (04:52)
[2018-01-25] MEDS: 0.45% NACL 1,000 ML IV SCH (06:28)
[2018-01-25] MEDS: FERROUS SULFATE 300 MG/5 ML UDC GT SCH ×3 (06:28→17:14)
[2018-01-25 06:47] LABS: BASOPHILS % (AUTO) 0.1 % (0.0-2.0); EOSINOPHILS # (AUTO) 0.3 K/uL (0.0-0.4); EOSINOPHILS % (AUTO) 2.1 % (0.0-4.0); HEMATOCRIT 28.2 % (36-48); HEMOGLOBIN 9.3 g/dL (12.0-16.0); LYMPHOCYTES # (AUTO) 1.3 K/uL (1.0-5.5); LYMPHOCYTES % (AUTO) 9.7 % (20.5-51.5); MEAN CORPUSCULAR HEMOGLOBIN 26 pg (27-31); MEAN CORPUSCULAR HGB CONC 33 % (32-36); MEAN CORPUSCULAR VOLUME 80 fL (79.0-98.0); MONOCYTES # (AUTO) 0.5 K/uL (0.0-1.0); MONOCYTES % (AUTO) 3.7 % (1.7-9.3); NEUTROPHILS # (AUTO) 11.2 K/uL (1.8-7.7); NEUTROPHILS % (AUTO) 84.4 % (40.0-70.0); RED BLOOD CELL COUNT(AUTO) 3.52 MIL/uL (4.2-6.2); RED CELL DISTRIBUTION WIDTH 23.6 % (9.0-15.0); WHITE BLOOD COUNT (AUTO) 13.3 K/uL (4.8-10.8)
[2018-01-25 07:12] LABS: PLATELET COUNT (AUTO) 243 K/uL (130-430)
--- NOTE | 2018-01-25 07:20 | NUR ---
Endorsement Gave report to Oncoming nurse at bedside via SBAR approach.
--- NOTE | 2018-01-25 07:30 | NUR ---
AM ASSESSMENT Pt received laying in bed with eyes closed. Pt is intubated connected to vent with the settings of AC 14, TV 500, FiO2 40%, PEEP 5 with oxygen saturation on the monitor 94%. GT currently administering Glucerna 1.2 @ 40 cc/hr. Right upper arm PICC line infusing 1/2 @ 30 cc/hr. Hrenandez cath draining yellow urine to gravity. With a colostomy bag on the left side of abd. No signs of distress, will continue to monitor. Isolation precautions observed.
[2018-01-25] MEDS: COLISTIMETHATE SODIUM 75 MG in NS 50 ML IV SCH ×2 (09:01→20:33)
[2018-01-25] MEDS: LevETIRAcetam 500 MG/5 ML UDC ORAL LIQUID GT SCH ×2 (09:03→20:37)
[2018-01-25] MEDS: METOCLOPRAMIDE HCL 10 MG/10 ML UDC GT SCH ×3 (09:04→20:34)
[2018-01-25] MEDS: CALCIUM CARBONATE/VITAMIN D3 1 TAB TABLET GT SCH ×2 (09:04→20:34)
[2018-01-25] MEDS: PANTOPRAZOLE SODIUM 40 MG/VIAL (PROTONIX) IVP SCH ×2 (09:04→20:33)
[2018-01-25] MEDS: LACTULOSE 20 GM/30 ML UDC GT SCH ×2 (09:04→20:34)
[2018-01-25] MEDS: LACTOBACILLUS RHAMNOSUS GG 1 CAP CAPSULE GT SCH ×2 (09:04→20:34)
[2018-01-25] MEDS: CHOLECALCIFEROL (VITAMIN D3) 2,000 UNIT TABLET GT SCH (09:04)
[2018-01-25] MEDS: NAPH,MB-DB/K PH,MBDB 250 MG TAB PO SCH ×3 (09:05→20:34)
[2018-01-25] MEDS: ASCORBIC ACID 500 MG TABLET GT SCH ×2 (09:05→20:34)
[2018-01-25 09:06] LABS: CALCIUM 8.7 mg/dL (8.4-11.0); CREATININE 0.94 mg/dL (0.55-1.30); POTASSIUM 4.3 mmol/L (3.5-5.1)
[2018-01-25 09:12] LABS: ALBUMIN 1.3 g/dL (3.4-4.8); TOTAL BILIRUBIN 0.3 mg/dL (0.0-1.0)
[2018-01-25] MEDS: MULTIVIT-MINERALS/FERROUS GLUC 15 ML UDC GT SCH ×2 (09:12→20:32)
--- NOTE | 2018-01-25 10:33 | NUR ---
RT NOTES Per Dr Baig's order, vent settings to SIMV 8 PS 10 PEEP 5. Immediately after the change, pt's respiration increased from 23 to 40-42 bpm, despite education and coaching. @1038 changed vent settings to AC 14. Dr. Baig and KRISTINE Boucher made aware.
[2018-01-25] MEDS: BALSAM PERU/CASTOR OIL 60 GM OINT...G. TP SCH (10:35)
--- NOTE | 2018-01-25 12:05 | NUR ---
Wound Care Pt provided wound care to pt's sacral area per wound care orders. Pt tolerated well and pictures taken to document and put in chart.
[2018-01-25] MEDS: INSULIN REGULAR, HUMAN 100 UNITS/ML, 10 ML VIAL (novoLIN R) SUBCUT PRN ×2 (12:12→17:25)
--- NOTE | 2018-01-25 12:15 | NUR ---
CHG CHG provided pt tolerated well. Will continue to monitor.
[2018-01-25] MEDS: CEFEPIME 1 GM in D5W 50 ML IV SCH (15:01)
--- NOTE | 2018-01-25 17:20 | NUR ---
Family Pt's daughter Maci called regarding pt's status, daughter informed that pt had a trail SIMV and was unable to tolerate. Maci stated she "was glad that [pt] mom was attempted to get off the vent, even if unsuccessful'.
--- NOTE | 2018-01-25 19:18 | NUR ---
Closing Notes Pt endorsed to Milton CARMONA using SBAR. Vital signs stable. Isolation precautions observed throughout shift.
--- NOTE | 2018-01-25 19:30 | NUR ---
PM ASSESSMENT Pt received laying in bed w/ eyes closed. No signs of acute distress or discomfort noted. VSS w/ SR seen on the monitor. Pt is intubated connected to vent w/ vent settings @ AC 14, TV 500, FiO2 40% and PEEP of 5 tolerating well w/ O2 sats @ 95%. Pt has MARIBEL picc infusing 1/2 ns @ 30 cc/hr, dressing c/d/i. Gtube patent and flushable infusing tubefeeding glucerna 1.2 @ 40 cc/hr. Hernandez cath draining yellow urine to gravity. Colostomy bad noted to LL abdomen, brown drainage noted. Isolations precautions observed. Bed locked and in lowest position, call light w/in reach, will continue to monitor.
[2018-01-26] VITALS (31 sets, daily range): BP systolic 87–147
--- NOTE | 2018-01-26 01:15 | NUR ---
RN ROUNDS Pt in bed w/ eyes closed. VSS w/ SR seen on the monitor. No signs of acute distress or discomfort noted. Bed is locked and in lowest position, call light w/in reach, will continue to monitor.
[2018-01-26] MEDS: 0.45% NACL 1,000 ML IV SCH (01:20)
[2018-01-26] MEDS: IPRATROPIUM BROM 0.5 MG/2.5 ML VIAL.NEB (ATROVENT) INH SCH ×2 (01:25→19:54)
[2018-01-26] MEDS: ALBUTEROL SULFATE 0.083% 2.5 MG/3 ML VIAL.NEB INH SCH ×2 (01:25→19:53)
[2018-01-26] MEDS: FERROUS SULFATE 300 MG/5 ML UDC GT SCH ×3 (06:46→17:15)
[2018-01-26 06:54] LABS: CALCIUM 8.8 mg/dL (8.4-11.0); CREATININE 1.02 mg/dL (0.55-1.30)
--- NOTE | 2018-01-26 07:27 | NUR ---
ENDORSEMENT Report given to Citlaly CARMONA using SBAR format. Pt in bed w/ eyes closed, no signs of acute distress or discomfort noted. Bed is locked and in lowest position, call light w/in reach.
[2018-01-26 07:32] LABS: BASOPHILS % (AUTO) 0.1 % (0.0-2.0); EOSINOPHILS # (AUTO) 0.3 K/uL (0.0-0.4); EOSINOPHILS % (AUTO) 2.6 % (0.0-4.0); HEMATOCRIT 26.9 % (36-48); HEMOGLOBIN 8.9 g/dL (12.0-16.0); LYMPHOCYTES # (AUTO) 1.4 K/uL (1.0-5.5); LYMPHOCYTES % (AUTO) 12.6 % (20.5-51.5); MEAN CORPUSCULAR HEMOGLOBIN 26 pg (27-31); MEAN CORPUSCULAR HGB CONC 33 % (32-36); MEAN CORPUSCULAR VOLUME 80 fL (79.0-98.0); MONOCYTES # (AUTO) 0.6 K/uL (0.0-1.0); MONOCYTES % (AUTO) 5.4 % (1.7-9.3); NEUTROPHILS # (AUTO) 8.9 K/uL (1.8-7.7); PLATELET COUNT (AUTO) 288 K/uL (130-430); RED BLOOD CELL COUNT(AUTO) 3.37 MIL/uL (4.2-6.2); RED CELL DISTRIBUTION WIDTH 23.1 % (9.0-15.0); WHITE BLOOD COUNT (AUTO) 11.2 K/uL (4.8-10.8)
--- NOTE | 2018-01-26 07:35 | NUR ---
AM ASSESSMENT Pt receiving laying in bed with eyes open, pt does not track. Right upper arm PICC line infusing 1/2 NS @ 30 cc/hr. G-Tube infusing Glucerna 1.2 @ 40 cc/hr. Hernandez in place draining yellow urine with sediment to gravity. Right side colostomy draining loose brown stool. Pt intubated with vent settings of AC 14, TV 500, FiO2 40%, PEEP 5. HOB 35 degrees, with bed in the lowest position. Isolation precautions observed. Will continue to monitor.
[2018-01-26] MEDS: COLISTIMETHATE SODIUM 75 MG in NS 50 ML IV SCH (08:57)
[2018-01-26] MEDS: LACTULOSE 20 GM/30 ML UDC GT SCH ×2 (08:58→20:41)
[2018-01-26] MEDS: METOCLOPRAMIDE HCL 10 MG/10 ML UDC GT SCH ×3 (08:59→20:41)
[2018-01-26] MEDS: NAPH,MB-DB/K PH,MBDB 250 MG TAB PO SCH ×3 (08:59→20:41)
[2018-01-26] MEDS: LACTOBACILLUS RHAMNOSUS GG 1 CAP CAPSULE GT SCH ×2 (08:59→20:41)
[2018-01-26] MEDS: PANTOPRAZOLE SODIUM 40 MG/VIAL (PROTONIX) IVP SCH ×2 (08:59→20:40)
[2018-01-26] MEDS: ASCORBIC ACID 500 MG TABLET GT SCH ×2 (09:00→20:41)
[2018-01-26] MEDS: CHOLECALCIFEROL (VITAMIN D3) 2,000 UNIT TABLET GT SCH (09:00)
[2018-01-26] MEDS: CALCIUM CARBONATE/VITAMIN D3 1 TAB TABLET GT SCH ×2 (09:01→20:41)
[2018-01-26] MEDS: LevETIRAcetam 500 MG/5 ML UDC ORAL LIQUID GT SCH ×2 (09:03→20:41)
[2018-01-26] MEDS: BALSAM PERU/CASTOR OIL 60 GM OINT...G. TP SCH (09:03)
[2018-01-26] MEDS: MULTIVIT-MINERALS/FERROUS GLUC 15 ML UDC GT SCH ×2 (09:09→20:40)
--- NOTE | 2018-01-26 09:14 | NUR ---
FiO2 FiO2 increased to 50% per Dr. Baig. Will continue to monitor pt's saturation.
[2018-01-26] MEDS ORDERED: TAZOBACTAM IV SCH (10:00)
[2018-01-26] MEDS ORDERED: CEFTOLOZANE IV SCH (10:00)
[2018-01-26] MEDS ORDERED: D5W IV SCH (10:00)
--- NOTE | 2018-01-26 10:30 | NUR ---
Medication Called pharmacy to follow-up on status of IV zerbaxa 750 mg. Medication is still currently being delivered via [facility] elisha Blevins (pharmacy).
--- NOTE | 2018-01-26 10:33 | NUR ---
LOC. PT CALM AND AWAKE AT THIS HOUR, O2 SAT 95%, MECHANICALLY VENTILATED, BLOOD PRESSURE 114/57, NSR ON QUARTER FOLDER, CALL LIGHT IN REACH, CONTINUE TO MONITOR PT.
--- NOTE | 2018-01-26 11:35 | NUR ---
Medications Spoke to Dr. Morales regarding discontinuation of IV maxipime after IV zerbaxa is administered. As of now, IV zerbaxa is still pending delivery.
[2018-01-26 11:42] LABS: NEUTROPHILS % (AUTO) 79.3 % (40.0-70.0)
[2018-01-26] MEDS: CEFEPIME 1 GM in D5W 50 ML IV SCH (12:22)
[2018-01-26] MEDS: ACETAMINOPHEN 650 MG/20.3 ML UDC GT PRN (12:30)
--- NOTE | 2018-01-26 13:00 | NUR ---
CHG CHG provided to pt, tolerated well. Isolation precautions observed.
--- NOTE | 2018-01-26 13:15 | NUR ---
Wound Care Pt provided wound care to sacral area following wound care instructions. Pt tolerated well and will continue to monitor. Isolation precautions observed.
--- NOTE | 2018-01-26 13:30 | NUR ---
PICC - dressing change Upper right arm PICC line dressing changed. Pt tolerated well, and sterile technique performed.
[2018-01-26] MEDS: D5W IV SCH ×2 (14:32→23:39)
[2018-01-26] MEDS: CEFTOLOZANE IV SCH ×2 (14:32→23:39)
[2018-01-26] MEDS: TAZOBACTAM IV SCH ×2 (14:32→23:39)
--- NOTE | 2018-01-26 16:18 | NUR ---
Lillian Sweeney from [facility] is evaluating pt for potential acceptance to LTAC facility.
--- NOTE | 2018-01-26 18:36 | NUR ---
Consent for Trach Pt's daughter Maci called to give consent for Trach, confirmed with 2 nurses. paged to inform.
--- NOTE | 2018-01-26 19:10 | NUR ---
Closing Notes Pt endorsed to night Milton RN using SBAR. Vital signs stable.
--- NOTE | 2018-01-26 19:30 | NUR ---
PM ASSESSMENT Pt received laying in bed w/ eyes closed. No signs of acute distress or discomfort noted. VSS w/ SR seen on the monitor. Pt is intubated connected to vent w/ vent settings @ AC 14, TV 500, FiO2 50% and PEEP of 5 tolerating well w/ O2 sats @ 98%. Pt has MARIBEL picc infusing 1/2 ns @ 30 cc/hr, dressing c/d/i. Gtube patent and flushable infusing tubefeeding glucerna 1.2 @ 40 cc/hr. Hernandez cath draining yellow urine to gravity. Colostomy bag noted to LL abdomen, brown drainage noted. Isolations precautions observed. Bed locked and in lowest position, call light w/in reach, will continue to monitor.
--- NOTE | 2018-01-26 19:54 | NUR ---
PAGED DR OAKLEY FOR ORDERS ABOUT THE PATIENT CALLED @ 6:40PM 1ST TIME CALLED THE 2ND TIME @7:47pm @ DR BARRERA INBOUND SALES MANAGER FOR DR OAKLEY
--- NOTE | 2018-01-26 20:30 | NUR ---
Tubefeeding Pt throwing up, tubefeeding put on hold for now per charge nurse. Will continue to monitor.
--- NOTE | 2018-01-26 22:04 | NUR ---
MD Rounds Dr. Valentine at bedside, made aware of the pt throwing up. Asked if we can get medication for the pt. Dr. Valentine put in order for Zofran 4 mg Q4hr PRN and Reglan 5 mg IVP Q6hr scheduled. Will carry out orders.
--- NOTE | 2018-01-26 22:31 | NUR ---
CALLED DR. DAVID STEPHEN FOR CONSULT @1939. SPOKE TO LOBO. NURSE IS AWARE.
[2018-01-26] MEDS: ONDANSETRON HCL 4 MG/2 ML VIAL IVP PRN (23:39)
[2018-01-27] VITALS (34 sets, daily range): BP systolic 99–125
--- NOTE | 2018-01-27 | NUR ---
TUBEFEEDING 5 cc's of residual noted, Tubefeeding restarted @ 40 cc/hr at this time. Will continue to monitor pt.
[2018-01-27] MEDS: METOCLOPRAMIDE HCL 10 MG/2 ML VIAL IVP SCH ×4 (00:26→17:09)
[2018-01-27] MEDS: 0.45% NACL 1,000 ML IV SCH (01:05)
[2018-01-27] MEDS: IPRATROPIUM BROM 0.5 MG/2.5 ML VIAL.NEB (ATROVENT) INH SCH ×4 (01:22→19:38)
[2018-01-27] MEDS: ALBUTEROL SULFATE 0.083% 2.5 MG/3 ML VIAL.NEB INH SCH ×4 (01:23→19:38)
--- NOTE | 2018-01-27 04:49 | NUR ---
RN ROUNDS Pt in bed w/ eyes closed. No signs of acute distress or discomfort noted. VSS w/ SR seen on the monitor. Respirations even and unlabored. Pt has MARIBEL picc infusing 1/2 ns 30 cc/hr, c/d/i. Pt has tubefeeding glucerna 1.2 infusing @ 40 cc/hr. Hernandez cath draining urine to gravity. Colostomy to lower left abdomen draining brown loose stool. Bed is locked and in lowest position, call light w/in reach, will continue to monitor.
[2018-01-27] MEDS: FERROUS SULFATE 300 MG/5 ML UDC GT SCH ×3 (06:29→17:09)
[2018-01-27 07:00] LABS: BASOPHILS % (AUTO) 0.3 % (0.0-2.0); EOSINOPHILS # (AUTO) 0.2 K/uL (0.0-0.4); EOSINOPHILS % (AUTO) 2.6 % (0.0-4.0); HEMATOCRIT 25.1 % (36-48); HEMOGLOBIN 8.3 g/dL (12.0-16.0); LYMPHOCYTES # (AUTO) 1.1 K/uL (1.0-5.5); LYMPHOCYTES % (AUTO) 11.9 % (20.5-51.5); MEAN CORPUSCULAR HEMOGLOBIN 26 pg (27-31); MEAN CORPUSCULAR HGB CONC 33 % (32-36); MEAN CORPUSCULAR VOLUME 79 fL (79.0-98.0); MONOCYTES # (AUTO) 0.5 K/uL (0.0-1.0); MONOCYTES % (AUTO) 5.5 % (1.7-9.3); NEUTROPHILS # (AUTO) 7.4 K/uL (1.8-7.7); NEUTROPHILS % (AUTO) 79.7 % (40.0-70.0); PLATELET COUNT (AUTO) 270 K/uL (130-430); RED BLOOD CELL COUNT(AUTO) 3.18 MIL/uL (4.2-6.2); RED CELL DISTRIBUTION WIDTH 22.8 % (9.0-15.0); WHITE BLOOD COUNT (AUTO) 9.2 K/uL (4.8-10.8)
--- NOTE | 2018-01-27 07:15 | NUR ---
INITIAL NOTE RECEIVED PATIENT FROM GUT CLEANER NURSE. PATIENT IS INTUBATED WITH VENT SETTINGS OF AC 14, TV 500, FIO2 50%, PEEP 5, TOLERATING WELL. PICC LINE IN RIGHT UPPER ARM WITH IV FLUIDS INFUSING, NO SIGNS OF INFILTRATION. PATIENT HAS G-TUBE WITH FEEDINGS RUNNING AT 40ML/HR, 0ML RESIDUAL, COLOSTOMY BAG TO LOWER RIGHT ABDOMINAL AREA DRAINING LOOSE BROWN STOOL, MANJARREZ CATHETER ALSO NOTED DRAINING YELLOW COLORED URINE. SCDS CURRENTLY IN PLACE. HOB ELEVATED, BED IN LOWEST POSITION, SIDE RAILS UP, FALL/ASPIRATION/CONTACT PRECAUTIONS IN PLACE, WILL CONTINUE TO MONITOR PATIENT.
--- NOTE | 2018-01-27 07:30 | NUR ---
ENDORSEMENT Report given to [facility] day shift nurse using SBAR format. Pt in bed w/ eyes closed. No signs of acute distress or discomfort noted.
[2018-01-27 08:08] LABS: ALBUMIN 1.2 g/dL (3.4-4.8); CREATININE 0.92 mg/dL (0.55-1.30); POTASSIUM 3.6 mmol/L (3.5-5.1); TOTAL BILIRUBIN 0.2 mg/dL (0.0-1.0)
[2018-01-27] MEDS: CEFTOLOZANE IV SCH ×2 (08:17→15:04)
[2018-01-27] MEDS: TAZOBACTAM IV SCH ×2 (08:17→15:04)
[2018-01-27] MEDS: D5W IV SCH ×2 (08:17→15:04)
[2018-01-27] MEDS: NAPH,MB-DB/K PH,MBDB 250 MG TAB GT SCH ×3 (09:12→21:14)
[2018-01-27] MEDS: LACTOBACILLUS RHAMNOSUS GG 1 CAP CAPSULE GT SCH ×2 (09:12→21:14)
[2018-01-27] MEDS: BALSAM PERU/CASTOR OIL 60 GM OINT...G. TP SCH (09:12)
[2018-01-27] MEDS: ASCORBIC ACID 500 MG TABLET GT SCH ×2 (09:12→21:14)
[2018-01-27] MEDS: CHOLECALCIFEROL (VITAMIN D3) 2,000 UNIT TABLET GT SCH (09:12)
[2018-01-27] MEDS: LevETIRAcetam 500 MG/5 ML UDC ORAL LIQUID GT SCH ×2 (09:13→21:18)
[2018-01-27] MEDS: LACTULOSE 20 GM/30 ML UDC GT SCH ×2 (09:13→21:14)
[2018-01-27] MEDS: CALCIUM CARBONATE/VITAMIN D3 1 TAB TABLET GT SCH ×2 (09:14→21:17)
[2018-01-27] MEDS: PANTOPRAZOLE SODIUM 40 MG/VIAL (PROTONIX) IVP SCH ×2 (09:14→21:14)
[2018-01-27] MEDS: MULTIVIT-MINERALS/FERROUS GLUC 15 ML UDC GT SCH ×2 (09:36→21:17)
--- NOTE | 2018-01-27 09:55 | NUR ---
MD AMES CALLED [employer] AT [phone] SPOKE WITH PILAR, WAS INFORMED FALGUNI TANNER IS CARRY ALL DRIVER.
--- NOTE | 2018-01-27 10:20 | NUR ---
Discharge Planning: SARWATP faxed pt referral to Zahra at [facility] (f [phone] p [phone]): Zahra called and requested [facility], SARWATP made CM aware.
--- NOTE | 2018-01-27 12:11 | NUR ---
PAGED PAGED ADRIEN ABERNATHY AT [phone] SPOKE WITH CAMRON.
--- NOTE | 2018-01-27 13:25 | NUR ---
Trach procedure Dr. Valentine and Dr. Rodriguez here to see patient, Dr. Rodriguez will do trach procedure on Tuesday at 12:[address] Rodriguez called and spoke with patient's daughter Maci and explained procedure,daughter Maci agreed to procedure, telephone consent verified with charge nurse as well. Patient to be NPO after midnight on Tuesday.
--- NOTE | 2018-01-27 15:00 | NUR ---
CHG/WOUND CARE: Performed wound care per wound treatment guidelines, isolation precautions maintained, CHG bath also performed along with bedding and gown change and oral care, patient tolerated well with minimal signs of discomfort.
--- NOTE | 2018-01-27 18:59 | NUR ---
CLOSING NOTE: Patient remains lethargic, mostly with eyes closed but will open to tactile stimulus, patient is nonverbal. At end of shift patient is on mechanical ventilator with FIO2 of 50%. RT upper arm PICC line is patent, with infusion pump running, PICC dressing is clean dry and intact. Tube feeding pump is inplace and running at 40 ml/hr. Air mattress is in place and running, SCDs are in place and running. Bed locked in lowest position, call light is within reach. No signs of distress noted.
--- NOTE | 2018-01-27 19:22 | NUR ---
ENDORSEMENT: Endorsed plan of care to KRISTINE Rudd
--- NOTE | 2018-01-27 19:24 | NUR ---
OPENING NOTE: Received patient from am nurse Hemant. Patient is lethargic and non-verbal. Opens her eyes and response to tactile stimulus. patient on a ventilator with settings at AC 14, FIO2 of 50%, TV 500 and a PEEP of 5; patient sating at 95%. No sign of acute distress noted at this time. PICC line on MARIBEL. No sign of infiltration noted. SCDs are in place. Safety precautions in place. Will continue to monitor.
--- NOTE | 2018-01-27 22:29 | NUR ---
RN ROUNDS Patient lying in bed with eyes closed. Rise and fall of chest noted. No sign of acute distress observed. Fall and seizure precaution in place. Patient being repositioned Q1H. Will continue to monitor.
[2018-01-28] VITALS (32 sets, daily range): BP systolic 107–137
[2018-01-28] MEDS: METOCLOPRAMIDE HCL 10 MG/2 ML VIAL IVP SCH ×4 (00:01→17:40)
[2018-01-28] MEDS: TAZOBACTAM IV SCH ×3 (00:02→16:29)
[2018-01-28] MEDS: D5W IV SCH ×3 (00:02→16:29)
[2018-01-28] MEDS: CEFTOLOZANE IV SCH ×3 (00:02→16:29)
[2018-01-28] MEDS: IPRATROPIUM BROM 0.5 MG/2.5 ML VIAL.NEB (ATROVENT) INH SCH ×4 (00:18→19:40)
[2018-01-28] MEDS: ALBUTEROL SULFATE 0.083% 2.5 MG/3 ML VIAL.NEB INH SCH ×4 (00:18→19:40)
[2018-01-28] MEDS: FERROUS SULFATE 300 MG/5 ML UDC GT SCH ×3 (06:01→16:29)
--- NOTE | 2018-01-28 06:06 | NUR ---
BG Patient's Blood Glucose at 139. No insulin coverage given as per sliding scale. Will continue to monitor.
[2018-01-28 06:53] LABS: EOSINOPHILS # (AUTO) 0.2 K/uL (0.0-0.4); EOSINOPHILS % (AUTO) 2.3 % (0.0-4.0); HEMATOCRIT 26.8 % (36-48); HEMOGLOBIN 8.5 g/dL (12.0-16.0); LYMPHOCYTES # (AUTO) 1.1 K/uL (1.0-5.5); MEAN CORPUSCULAR HEMOGLOBIN 25 pg (27-31); MEAN CORPUSCULAR HGB CONC 32 % (32-36); MEAN CORPUSCULAR VOLUME 80 fL (79.0-98.0); MONOCYTES # (AUTO) 0.5 K/uL (0.0-1.0); MONOCYTES % (AUTO) 5.7 % (1.7-9.3); NEUTROPHILS # (AUTO) 7.3 K/uL (1.8-7.7); PLATELET COUNT (AUTO) 302 K/uL (130-430); RED BLOOD CELL COUNT(AUTO) 3.35 MIL/uL (4.2-6.2); RED CELL DISTRIBUTION WIDTH 23.1 % (9.0-15.0); WHITE BLOOD COUNT (AUTO) 9.1 K/uL (4.8-10.8)
--- NOTE | 2018-01-28 07:08 | NUR ---
Patient opens eyes, but do not track. SR on monitor. On ETT tube; AC 14, Vt 500ml, 50% FiO2, PICC on MARIBEL; Glucerna 1.2 running thru GTube, 40ml/hr. 10ml of residual noted. F/C #28, draining yellow and cloudy urine. Colostomy on left lower abdomen. Has SCDs. Call light in place, bed locked at the lowest position, will continue to monitor.
--- NOTE | 2018-01-28 07:25 | NUR ---
O2 titrated down to 40%.
[2018-01-28 07:39] LABS: CALCIUM 9.2 mg/dL (8.4-11.0); CREATININE 1.07 mg/dL (0.55-1.30); POTASSIUM 3.8 mmol/L (3.5-5.1)
[2018-01-28 07:43] LABS: ALBUMIN 1.2 g/dL (3.4-4.8); PHOSPHORUS 3.7 mg/dL (2.7-4.5); TOTAL BILIRUBIN 0.2 mg/dL (0.0-1.0)
[2018-01-28] MEDS: LACTULOSE 20 GM/30 ML UDC GT SCH ×2 (08:13→21:00)
[2018-01-28] MEDS: PANTOPRAZOLE SODIUM 40 MG/VIAL (PROTONIX) IVP SCH ×2 (08:14→21:46)
[2018-01-28] MEDS: CALCIUM CARBONATE/VITAMIN D3 1 TAB TABLET GT SCH ×2 (08:14→21:46)
[2018-01-28] MEDS: LACTOBACILLUS RHAMNOSUS GG 1 CAP CAPSULE GT SCH ×2 (08:14→21:46)
[2018-01-28] MEDS: MULTIVIT-MINERALS/FERROUS GLUC 15 ML UDC GT SCH ×2 (08:14→21:47)
[2018-01-28] MEDS: CHOLECALCIFEROL (VITAMIN D3) 2,000 UNIT TABLET GT SCH (08:15)
[2018-01-28] MEDS: BALSAM PERU/CASTOR OIL 60 GM OINT...G. TP SCH (08:15)
[2018-01-28] MEDS: ASCORBIC ACID 500 MG TABLET GT SCH ×2 (08:15→21:46)
[2018-01-28] MEDS: NAPH,MB-DB/K PH,MBDB 250 MG TAB GT SCH ×3 (08:15→21:46)
--- NOTE | 2018-01-28 08:15 | NUR ---
O2 is titrated down to 30%. Will continue to monitor for V/S
[2018-01-28] MEDS: LevETIRAcetam 500 MG/5 ML UDC ORAL LIQUID GT SCH ×2 (09:18→21:45)
--- NOTE | 2018-01-28 10:20 | NUR ---
Patient wound care is done. Patient tolerated the procedure without distress.
[2018-01-28] MEDS: INSULIN REGULAR, HUMAN 100 UNITS/ML, 10 ML VIAL (novoLIN R) SUBCUT PRN ×2 (11:30→18:26)
--- NOTE | 2018-01-28 12:18 | NUR ---
Dr. Griffin is at bedside assessing the patient. No new orders are given at this time.
--- NOTE | 2018-01-28 14:30 | NUR ---
Patient is turned and repositioned for comfort.
--- NOTE | 2018-01-28 16:08 | NUR ---
patient is turned and repositioned for comfort. oral care provided.
--- NOTE | 2018-01-28 17:42 | NUR ---
Nutrition F/U Short F/U note utilized d/t high pt load. RD reviewed pt's current EMR record -- labs, meds, physician notes, and care trends. Plans for tracheostomy 01/30/18 per EMR. Active TF order for Glucerna 1.2 at 40 ml/hr, Marques BID, Prosource TID, Free Water Flush: 100 ML Q4H via GT x3 days -- pt continues to tolerate TF well per low residual records and no s/s of intolerance documented. Current TF regimen remains appropriate and adequate.
--- NOTE | 2018-01-28 17:45 | NUR ---
Dietitian Recommendations * Recommend Glucerna 1.2 at 40 ml/hr, Marques BID, Prosource TID, Free Water Flush: 100 ML Q4H via GT Provides: 1508 kcal/day, 108 gm protein/day, and 1973 ml free water/day Meets: 89% of estimated caloric needs and 108% of estimated protein needs LP, RD
--- NOTE | 2018-01-28 18:20 | NUR ---
Blood sugar 151. RI 2 units are given.
--- NOTE | 2018-01-28 20:00 | NUR ---
ASSESSMENT Pt alert, non-verbal opens eyes with verbal stimuli. Pt orally intubated, and tolerating current vent settings. Rhonchi present, lungs clear with suction. Pt able to move right upper extremity only. PICC line present right upper arm, dressing intact, no redness or swelling noted @ site. Gastric tube connected to continuous feeding. Pt tolerating feeding. Hernandez catheter in use. Low air mattress in use. SCD in use.
[2018-01-28] MEDS: 0.45% NACL 1,000 ML IV SCH (22:01)
[2018-01-29] VITALS (32 sets, daily range): BP systolic 100–153
[2018-01-29] MEDS: D5W IV SCH ×3 (00:23→16:04)
[2018-01-29] MEDS: CEFTOLOZANE IV SCH ×3 (00:23→16:04)
[2018-01-29] MEDS: TAZOBACTAM IV SCH ×3 (00:23→16:04)
[2018-01-29] MEDS: METOCLOPRAMIDE HCL 10 MG/2 ML VIAL IVP SCH ×4 (00:23→18:03)
[2018-01-29] MEDS: ALBUTEROL SULFATE 0.083% 2.5 MG/3 ML VIAL.NEB INH SCH ×4 (01:53→19:52)
[2018-01-29] MEDS: IPRATROPIUM BROM 0.5 MG/2.5 ML VIAL.NEB (ATROVENT) INH SCH ×4 (01:53→19:52)
[2018-01-29 05:49] LABS: BASOPHILS # (AUTO) 0.1 K/uL (0.0-0.2); BASOPHILS % (AUTO) 0.6 % (0.0-2.0); EOSINOPHILS # (AUTO) 0.2 K/uL (0.0-0.4); EOSINOPHILS % (AUTO) 2.2 % (0.0-4.0); HEMOGLOBIN 9.2 g/dL (12.0-16.0); LYMPHOCYTES # (AUTO) 1.3 K/uL (1.0-5.5); LYMPHOCYTES % (AUTO) 12.9 % (20.5-51.5); MEAN CORPUSCULAR HEMOGLOBIN 26 pg (27-31); MEAN CORPUSCULAR HGB CONC 33 % (32-36); MEAN CORPUSCULAR VOLUME 80 fL (79.0-98.0); MONOCYTES # (AUTO) 0.6 K/uL (0.0-1.0); MONOCYTES % (AUTO) 5.5 % (1.7-9.3); NEUTROPHILS # (AUTO) 7.8 K/uL (1.8-7.7); NEUTROPHILS % (AUTO) 78.8 % (40.0-70.0); PLATELET COUNT (AUTO) 377 K/uL (130-430); RED BLOOD CELL COUNT(AUTO) 3.52 MIL/uL (4.2-6.2); RED CELL DISTRIBUTION WIDTH 22.8 % (9.0-15.0)
[2018-01-29] MEDS: FERROUS SULFATE 300 MG/5 ML UDC GT SCH ×3 (06:01→16:04)
[2018-01-29 06:19] LABS: CALCIUM 9.1 mg/dL (8.4-11.0); CREATININE 0.94 mg/dL (0.55-1.30)
--- NOTE | 2018-01-29 07:15 | NUR ---
RN OPENING NOTES SBAR REPORT RECEIVED AT BEDSIDE BY ENDORSING NURSE. SEE VS FLOW SHEET
--- NOTE | 2018-01-29 07:20 | NUR ---
DR. BARRERA AT BEDSIDE
[2018-01-29] MEDS: 0.45% NACL 1,000 ML IV SCH (08:00)
[2018-01-29] MEDS: CHOLECALCIFEROL (VITAMIN D3) 2,000 UNIT TABLET GT SCH (08:51)
[2018-01-29] MEDS: PANTOPRAZOLE SODIUM 40 MG/VIAL (PROTONIX) IVP SCH ×2 (08:51→22:01)
[2018-01-29] MEDS: LACTOBACILLUS RHAMNOSUS GG 1 CAP CAPSULE GT SCH ×2 (08:51→22:01)
[2018-01-29] MEDS: ASCORBIC ACID 500 MG TABLET GT SCH ×2 (08:51→22:01)
[2018-01-29] MEDS: NAPH,MB-DB/K PH,MBDB 250 MG TAB GT SCH ×3 (08:51→22:01)
[2018-01-29] MEDS: BALSAM PERU/CASTOR OIL 60 GM OINT...G. TP SCH (08:52)
[2018-01-29] MEDS: CALCIUM CARBONATE/VITAMIN D3 1 TAB TABLET GT SCH ×2 (08:52→22:01)
[2018-01-29] MEDS: LevETIRAcetam 500 MG/5 ML UDC ORAL LIQUID GT SCH ×2 (08:53→21:00)
[2018-01-29] MEDS: LACTULOSE 20 GM/30 ML UDC GT SCH ×2 (08:54→21:00)
[2018-01-29] MEDS: MULTIVIT-MINERALS/FERROUS GLUC 15 ML UDC GT SCH ×2 (08:55→22:01)
--- NOTE | 2018-01-29 11:20 | NUR ---
DR. MOORE AT BEDSIDE
[2018-01-29] MEDS: INSULIN REGULAR, HUMAN 100 UNITS/ML, 10 ML VIAL (novoLIN R) SUBCUT PRN ×2 (16:57→22:37)
--- NOTE | 2018-01-29 19:25 | NUR ---
ENDORSEMENT SBAR REPORT ENDORSED TO RECEIVING RN AT BEDSIDE.
--- NOTE | 2018-01-29 20:00 | NUR ---
ASSESSMENT Pt alert, makes eye contact, does not follow directions. Pt orally intubated, tolerating current vent settings. PICC line present right upper arm, dressing dry and intact. No redness or swelling noted @ site. Pt able to move right upper extremity only, other extremities are weak. Colostomy draining brown loss stool. Hernandez cath draining yellow urine with sediment. Low air loss mattress in use.
[2018-01-29] MEDS ORDERED: levETIRAcetam 500 MG TABLET ONE (21:37)
[2018-01-30] VITALS (30 sets, daily range): BP systolic 107–179
--- NOTE | 2018-01-30 | NUR ---
ASSESSMENT Pt in bed, no acute distress at this time. Will continue to monitor Pt.
[2018-01-30] MEDS: CEFTOLOZANE IV SCH ×4 (00:54→23:05)
[2018-01-30] MEDS: TAZOBACTAM IV SCH ×4 (00:54→23:05)
[2018-01-30] MEDS: D5W IV SCH ×4 (00:54→23:05)
[2018-01-30] MEDS: METOCLOPRAMIDE HCL 10 MG/2 ML VIAL IVP SCH ×5 (00:55→23:05)
[2018-01-30] MEDS: IPRATROPIUM BROM 0.5 MG/2.5 ML VIAL.NEB (ATROVENT) INH SCH ×4 (00:59→19:28)
[2018-01-30] MEDS: ALBUTEROL SULFATE 0.083% 2.5 MG/3 ML VIAL.NEB INH SCH ×4 (00:59→19:28)
[2018-01-30] MEDS: FERROUS SULFATE 300 MG/5 ML UDC GT SCH ×3 (06:07→17:10)
[2018-01-30] MEDS: 0.45% NACL 1,000 ML IV SCH (06:16)
[2018-01-30 06:43] LABS: CALCIUM 9.2 mg/dL (8.4-11.0); CREATININE 0.92 mg/dL (0.55-1.30); POTASSIUM 3.9 mmol/L (3.5-5.1)
[2018-01-30 06:58] LABS: ALBUMIN 1.2 g/dL (3.4-4.8); TOTAL BILIRUBIN 0.2 mg/dL (0.0-1.0)
--- NOTE | 2018-01-30 07:15 | NUR ---
OPENING NOTE: Received SBAR report at bedside from PM nurse. Air mattress is in place and running, SCDs are in place and running. GTube feeding is off pending surgery reporting nurse said patient NPO since 02:45. See VS flow sheet. Bed locked in lowest position, call light is within reach, will continue to monitor.
[2018-01-30 08:38] LABS: BASOPHILS % (AUTO) 0.1 % (0.0-2.0); EOSINOPHILS # (AUTO) 0.2 K/uL (0.0-0.4); EOSINOPHILS % (AUTO) 1.6 % (0.0-4.0); HEMATOCRIT 25.3 % (36-48); HEMOGLOBIN 8.3 g/dL (12.0-16.0); LYMPHOCYTES # (AUTO) 1.1 K/uL (1.0-5.5); LYMPHOCYTES % (AUTO) 11.2 % (20.5-51.5); MEAN CORPUSCULAR HEMOGLOBIN 26 pg (27-31); MEAN CORPUSCULAR HGB CONC 33 % (32-36); MEAN CORPUSCULAR VOLUME 78 fL (79.0-98.0); MONOCYTES # (AUTO) 0.7 K/uL (0.0-1.0); MONOCYTES % (AUTO) 6.7 % (1.7-9.3); NEUTROPHILS # (AUTO) 7.9 K/uL (1.8-7.7); NEUTROPHILS % (AUTO) 80.4 % (40.0-70.0); PLATELET COUNT (AUTO) 402 K/uL (130-430); RED BLOOD CELL COUNT(AUTO) 3.23 MIL/uL (4.2-6.2); WHITE BLOOD COUNT (AUTO) 9.9 K/uL (4.8-10.8)
[2018-01-30 08:55] LABS: RED CELL DISTRIBUTION WIDTH 22.5 % (9.0-15.0)
[2018-01-30] MEDS: CALCIUM CARBONATE/VITAMIN D3 1 TAB TABLET GT SCH ×2 (09:00→21:14)
[2018-01-30] MEDS: NAPH,MB-DB/K PH,MBDB 250 MG TAB GT SCH ×3 (09:00→21:15)
[2018-01-30] MEDS: LevETIRAcetam 500 MG/5 ML UDC ORAL LIQUID GT SCH ×2 (09:00→21:14)
[2018-01-30] MEDS: LACTOBACILLUS RHAMNOSUS GG 1 CAP CAPSULE GT SCH ×2 (09:00→21:15)
[2018-01-30] MEDS: CHOLECALCIFEROL (VITAMIN D3) 2,000 UNIT TABLET GT SCH (09:00)
[2018-01-30] MEDS: ASCORBIC ACID 500 MG TABLET GT SCH ×2 (09:00→21:15)
[2018-01-30] MEDS: MULTIVIT-MINERALS/FERROUS GLUC 15 ML UDC GT SCH ×2 (09:00→21:14)
[2018-01-30] MEDS: LACTULOSE 20 GM/30 ML UDC GT SCH ×2 (09:00→21:15)
--- NOTE | 2018-01-30 09:30 | NUR ---
Dr. Baig at bedside
[2018-01-30] MEDS: PANTOPRAZOLE SODIUM 40 MG/VIAL (PROTONIX) IVP SCH ×2 (09:31→21:15)
[2018-01-30] MEDS: BALSAM PERU/CASTOR OIL 60 GM OINT...G. TP SCH (09:32)
--- NOTE | 2018-01-30 10:30 | NUR ---
CHG/WOUND CARE: Performed wound care per wound treatment guidelines, isolation precautions maintained, CHG bath also performed along with bedding and gown change, patient tolerated well with minimal signs of discomfort.
[2018-01-30] MEDS ORDERED: ROCURONIUM BROMIDE 10 MG/ML (ZEMURON) IV ONE (12:35)
[2018-01-30] MEDS ORDERED: NS 1000 ML IV.SOLN IV ONE (12:35)
[2018-01-30] MEDS ORDERED: NS IRRIG SOLN 1000 ML IR ONE (12:35)
[2018-01-30] MEDS ORDERED: SEVOFLURANE 15 MIN GAS INH ONE (12:35)
[2018-01-30] MEDS ORDERED: LIDOCAINE/EPI 1% 1:100000 20 ML VIAL INJ ONE (12:35)
--- NOTE | 2018-01-30 12:50 | NUR ---
TRANSPORT TO SURGERY TRANSPORTED PT VIA BED WITH INSPECTOR FABRIC AND RT IN ACCORDANCE WITH ACLS GUIDELINES. SBAR REPORT ENDORSED TO RECEIVING RN WELL ANESTHESIOLOGIST, DR. BANEGAS.
[2018-01-30] MEDS ORDERED: fentaNYL CITRATE/PF 100 MCG/2 ML AMP IVP PRN ×2 (13:30)
[2018-01-30] MEDS ORDERED: ONDANSETRON HCL 4 MG/2 ML VIAL IVP PRN (13:30)
--- NOTE | 2018-01-30 13:55 | NUR ---
PT RETURNED FROM SURGERY PT RETURNED FROM OR TO ICU BED 5 WITH ANESTHESIOLOGIST, DR. BANEGAS, ATTENDING. REPORT RECEIVED FROM DR. BANEGAS. PT HAD A SHILEY #6 TRACH INSERTED, NO ACTIVE BLEEDING AT Sx SITE. VENT SETTING ARE AC 14, TV 500, FIO2 100%, PEEP 5. MD INSTRUCTED RT TO TITER FIO2 DOWN TO 30% TOLERATED. SR ON SHINGLE TRIMMER. BP 169/67, HR 85, RR 14, SPO2 100%, TEMP 98.0 PT LETHARGIC, SMACKING LIPS, NO DISTRESS NOTED. RN WILL REMAIN AT BEDSIDE DURING RECOVERY.
--- NOTE | 2018-01-30 14:00 | NUR ---
RECOVERY NOTE PT LETHARGIC, SMACKING LIPS, NO DISTRESS NOTED. NO ACTIVE BLEEDING AT Sx SITE. VENT SETTING ARE AC 14, TV 500, FIO2 50%, PEEP 5. BP 168/80, HR 90, RR 14, SPO2 99%, TEMP 98.0 RN WILL REMAIN AT BEDSIDE DURING RECOVERY.
--- NOTE | 2018-01-30 14:05 | NUR ---
RECOVERY NOTE PT SMACKING LIPS, EYES OPENING SPONTANEOUSLY, NO DISTRESS NOTED. NO ACTIVE BLEEDING AT Sx SITE. VENT SETTING ARE AC 14, TV 500, FIO2 50%, PEEP 5. BP 162/80, HR 88, RR 14, SPO2 99%, TEMP 98.1 RN WILL REMAIN AT BEDSIDE DURING RECOVERY.
--- NOTE | 2018-01-30 14:10 | NUR ---
RECOVERY NOTE PT SMACKING LIPS, EYES OPENING SPONTANEOUSLY, NO S/S OF DISTRESS. NO ACTIVE NOTED BLEEDING AT Sx SITE. VENT SETTING ARE AC 14, TV 500, FIO2 50%, PEEP 5. BP 160/76, HR 82, RR 14, SPO2 98%, TEMP 98.0 RN WILL REMAIN AT BEDSIDE DURING RECOVERY.
--- NOTE | 2018-01-30 14:15 | NUR ---
Pt has a #6 shiley trach with no bleeding at site. Vent settings AC 14/500/30%/+5. Blooding secretions noted. Pt smacking lips. SR on monitor. BP 164/67 HR 95 RR 35% with 02 sats 91%. No distress noted. RT at bedside giving a breathing treatment. Will continue to monitor.
--- NOTE | 2018-01-30 14:20 | NUR ---
Recovery Pt smacking lips and opening eyes. SR on monitor. Trach dressing applied by RT. BP 148/65 HR 91 RR 35% with 02 sats 96%. No distress noted. Will continue to monitor.
--- NOTE | 2018-01-30 14:25 | NUR ---
Recovery BP 147/71 HR 92, RR 15 02 sats 90%. No bleeding from trach site. Pt resting quietly. HOB up. Remains NPO.
--- NOTE | 2018-01-30 14:30 | NUR ---
RECOVERY NOTE PT SMACKING LIPS, LIGHT FINGER MOVEMENT NOTED, EYES OPEN, NO S/S OF DISTRESS. NO ACTIVE NOTED BLEEDING AT Sx SITE. VENT SETTING ARE AC 14, TV 500, FIO2 30%, PEEP 5. BP 147/71, HR 93 RR 15, SPO2 93%, TEMP 98.2 RN WILL REMAIN AT BEDSIDE DURING RECOVERY.
--- NOTE | 2018-01-30 14:35 | NUR ---
RECOVERY NOTE PT SMACKING LIPS, LIGHT FINGER MOVEMENT NOTED, EYES OPEN, NO S/S OF DISTRESS. NO ACTIVE NOTED BLEEDING AT Sx SITE. VENT SETTING ARE AC 14, TV 500, FIO2 30%, PEEP 5. BP 145/69 HR 94 RR 19 SPO2 91%, TEMP 98.2 RN WILL REMAIN AT BEDSIDE DURING RECOVERY.
--- NOTE | 2018-01-30 14:40 | NUR ---
RECOVERY NOTE PT SMACKING LIPS, LIGHT FINGER MOVEMENT NOTED, EYES OPEN, NO S/S OF DISTRESS. NO ACTIVE NOTED BLEEDING AT Sx SITE. VENT SETTING ARE AC 14, TV 500, FIO2 30%, PEEP 5. BP 143/6569 HR 90 RR 16 SPO2 90%, TEMP 98.1 RN WILL REMAIN AT BEDSIDE DURING RECOVERY.
--- NOTE | 2018-01-30 14:45 | NUR ---
RECOVERY COMPLETE PT IS LETHARGIC, RETURNED TO BASELINE LEVEL OF CONSCIOUSNESS WITH NO S/S OF DISTRESS. NO ACTIVE NOTED BLEEDING AT Sx SITE. VENT SETTING ARE AC 14, TV 500, FIO2 30%, PEEP 5. BP 153/62 HR 88 RR 15 SPO2 88%, TEMP 98.1
--- NOTE | 2018-01-30 19:30 | NUR ---
TRANSFER OF CARE Pt in bed, with eyes open and does not track, chest rise and fall noted. On mechanical ventilator via trach tolerating settings with 95% O2 saturation. Sinus rhythm on the monitor. On contact isolation. Gtube in placed tolerating tubefeeding with no residual noted. Colostomy bag in placed on the left abdomen no redness noted on the site. MARIBEL PICC in placed, patent with good blood return and no redness noted. Sacral wound noted with dressing CDI. Hernandez catheter in placed draining clear yellow urine to gravity. Safety precaution observed, call light within reach. Seizure pads on the side rails. Will continue to monitor Pt.
--- NOTE | 2018-01-30 19:31 | NUR ---
ENDORSEMENT: Gave SBAR report and endorsed plan of care to KRISTINE Walter
[2018-01-31] VITALS (37 sets, daily range): BP systolic 90–148
--- NOTE | 2018-01-31 | NUR ---
ASSESSMENT Pt in bed, no acute distress at this time. Will continue to monitor Pt.
[2018-01-31] MEDS: ALBUTEROL SULFATE 0.083% 2.5 MG/3 ML VIAL.NEB INH SCH ×4 (00:14→19:31)
[2018-01-31] MEDS: IPRATROPIUM BROM 0.5 MG/2.5 ML VIAL.NEB (ATROVENT) INH SCH ×4 (00:14→19:31)
[2018-01-31] MEDS: 0.45% NACL 1,000 ML IV SCH ×2 (01:30→18:58)
--- NOTE | 2018-01-31 04:00 | NUR ---
ASSESSMENT Pt in bed, no acute distress at this time. Will continue to monitor Pt.
[2018-01-31] MEDS: FERROUS SULFATE 300 MG/5 ML UDC GT SCH ×3 (05:56→17:07)
[2018-01-31] MEDS: METOCLOPRAMIDE HCL 10 MG/2 ML VIAL IVP SCH ×4 (05:56→23:44)
--- NOTE | 2018-01-31 06:50 | NUR ---
CLOSING NOTES Pt in bed, no acute distress at this time. IV lines and skin check. Will give report to oncoming RN via SBAR.
[2018-01-31 07:24] LABS: BASOPHILS % (AUTO) 0.1 % (0.0-2.0); EOSINOPHILS # (AUTO) 0.1 K/uL (0.0-0.4); EOSINOPHILS % (AUTO) 1.2 % (0.0-4.0); HEMATOCRIT 23.1 % (36-48); HEMOGLOBIN 7.6 g/dL (12.0-16.0); LYMPHOCYTES # (AUTO) 1.1 K/uL (1.0-5.5); LYMPHOCYTES % (AUTO) 11.3 % (20.5-51.5); MEAN CORPUSCULAR HEMOGLOBIN 26 pg (27-31); MEAN CORPUSCULAR HGB CONC 33 % (32-36); MEAN CORPUSCULAR VOLUME 79 fL (79.0-98.0); MONOCYTES # (AUTO) 0.6 K/uL (0.0-1.0); MONOCYTES % (AUTO) 6.1 % (1.7-9.3); NEUTROPHILS # (AUTO) 7.9 K/uL (1.8-7.7); NEUTROPHILS % (AUTO) 81.3 % (40.0-70.0); PLATELET COUNT (AUTO) 336 K/uL (130-430); RED BLOOD CELL COUNT(AUTO) 2.94 MIL/uL (4.2-6.2); WHITE BLOOD COUNT (AUTO) 9.8 K/uL (4.8-10.8)
[2018-01-31 07:29] LABS: CALCIUM 8.7 mg/dL (8.4-11.0); CREATININE 0.85 mg/dL (0.55-1.30)
[2018-01-31] MEDS: D5W IV SCH ×3 (07:48→23:44)
[2018-01-31] MEDS: CEFTOLOZANE IV SCH ×3 (07:48→23:44)
[2018-01-31] MEDS: TAZOBACTAM IV SCH ×3 (07:48→23:44)
[2018-01-31 07:54] LABS: RED CELL DISTRIBUTION WIDTH 22.1 % (9.0-15.0)
--- NOTE | 2018-01-31 08:00 | NUR ---
OPENING NOTES, RECEIVED PT IN BED, PT IS NON - VERBAL, EYES OPEN BUT NOT TRACKING, PT NOT FOLLOWING COMMANDS. IV FLUIDS INFUSING WELL VIA A R. UPPER ARM PICC. DRESSING IS DRY AND INTACT NO SIGNS OF INFILTRATION OR SWELLING. PT HAS A TRACH CONNECTED TO VENT WITH AC SETTINGS. PT IS GETTING G-TUBE FEEDING, NO RESIDUAL NOTED. MANJARREZ CATH DRAINING YELLOW URINE WITH LOTS OF SEDIMENTS ON THE LUMEN ON THE CATHETER. SAFETY PRECAUTION IN PLACE, BED IN LOW POSITION AT 35 [address]. BED LOCKED. WILL CONT TO MONITOR.
[2018-01-31] MEDS: PANTOPRAZOLE SODIUM 40 MG/VIAL (PROTONIX) IVP SCH ×2 (08:48→20:54)
[2018-01-31] MEDS: NAPH,MB-DB/K PH,MBDB 250 MG TAB GT SCH ×3 (08:48→20:54)
[2018-01-31] MEDS: ASCORBIC ACID 500 MG TABLET GT SCH ×2 (08:49→20:54)
[2018-01-31] MEDS: CALCIUM CARBONATE/VITAMIN D3 1 TAB TABLET GT SCH ×2 (08:49→20:54)
[2018-01-31] MEDS: LACTOBACILLUS RHAMNOSUS GG 1 CAP CAPSULE GT SCH ×2 (08:49→20:54)
[2018-01-31] MEDS: CHOLECALCIFEROL (VITAMIN D3) 2,000 UNIT TABLET GT SCH (08:49)
[2018-01-31] MEDS: LevETIRAcetam 500 MG/5 ML UDC ORAL LIQUID GT SCH ×2 (08:50→20:55)
[2018-01-31] MEDS: MULTIVIT-MINERALS/FERROUS GLUC 15 ML UDC GT SCH ×2 (08:50→20:57)
[2018-01-31] MEDS: BALSAM PERU/CASTOR OIL 60 GM OINT...G. TP SCH (08:51)
[2018-01-31] MEDS: LACTULOSE 20 GM/30 ML UDC GT SCH ×2 (08:51→20:54)
[2018-01-31 08:53] LABS: POTASSIUM 3.4 mmol/L (3.5-5.1)
[2018-01-31] MEDS ORDERED: POTASSIUM CHLORIDE 20 MEQ/PKT PACKET PO ONE (09:45)
--- NOTE | 2018-01-31 12:49 | NUR ---
DR HEBERT HERE AND SEEN PT. EXAMINED PT'S TRACHEOSTOMY.
--- NOTE | 2018-01-31 14:20 | NUR ---
PT'S RR IS 45, TEMP WAS 100.2, WILL GIVE PT TYLENOL.
[2018-01-31] MEDS: ACETAMINOPHEN 650 MG/20.3 ML UDC GT PRN (14:29)
--- NOTE | 2018-01-31 15:19 | NUR ---
DR OAKLEY MADE AWARE OF THE PT'S RR OF 45-50, MD SAID TO HAVE RT CHECKED PT AND REVERT PT BACK TO AC MODE. INFORMED R.T. , PT'S RR NOW AT 22. WILL CONT TO MONITOR.
[2018-01-31] MEDS ORDERED: EPOETIN ALFA 4,000 UNITS/ML VIAL SUBCUT ONE (16:00)
--- NOTE | 2018-01-31 16:05 | NUR ---
SARWAT PLANNING Received call from Zahra Snyder that she spoke w Matthieu @ [facility] & wants me to call her. Called & spoke w Matthieu(Shama) @ [facility], ph [phone], informed of LTAC order. States does not show that they are responsible that Medicare is, wants Medicare days exhausted form to be faxed to her, fax [phone], before she will consider if LTAC can be auth'd. Called & left ms w [employer] insurance office supervisor to fax Medicare days exhausted to Matthieu. Updated sarwat Shepard sr. merchandise planner.
--- NOTE | 2018-01-31 16:09 | NUR ---
dr halley barrientos md madea aware that pt had a tempt of 100.2 and pt was given tylenol.
--- NOTE | 2018-01-31 16:19 | NUR ---
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 on GT feeding, DM type 2, HTN, HLD, atherosclerosis, neurogenic bladder, diverting colostomy, sacral PU stage 3, severe protein malnutrition, chronic pulmonary scarring per MD notes 01/31/18 Cardiology notes: Chronic respiratory failure possibly aspiration pneumonia previous multiple strokes bedbound status; patient on ventilatory therapy for last several days now; s/p GT and colostomy; septic shock appears to be improving patient off Levophed for last several days; The CK-MB with acute kidney injury secondary to shock; severe anemia rule out underlying GI bleeding; chronic decubitus ulcer over the coccyx; s/p tracheostomy placement Subjective Information Pt had tracheostomy done yesterday, 01/30/18. Pt was being seen by RT at time of RD visit. Pt remains +unresponsive w/ TF infusing as per MD orders. Per EMR, TF Intakes: 480 ml 01/31/18. Residuals: 0 ml 01/31/18. Abd is soft w/ active bowel sounds. Current TF regimen is adequate/appropriate. Current Diet Order/Nutrition Support Glucerna at 40 ml/hr, Marques BID, Prosource TID Free Water Flush: 50CC Q6 via GT x0 days Patient/Significant Other Unable To Verbalize Education Provided Not Indicated Pertinent Medications neutraphos, reglan, zofran, VIT D-3, protonix, culturelle, centrum, zinc sulfate, lactulose, os-shorty, VIT C, ferrous sulfate, SSI Pertinent Labs BG 129 H, POC BG 145 H, BUN 27 H, ALB 1.2 L, Mg 1.3 H, H/H 7.6 L/23.1 L Height (Feet) 5 feet Height (Inches) 3.00 inches Weight (Pounds) 152 pounds (01/17/18) BED SCALE WT: 186.5 lb (01/23) ---may be inaccurate d/t blankets/pillows Weight (Calculated Kilograms) 68.426411 kilograms Patient Weight 68.946 kg Body Mass Index 26.92 kg/m2 %IBW [address] [place]/Adjusted Body Weight IBW: 115 lb, 52 kg. Adj IBW (obesity): 124 lb, 56 kg Recent Weight Change No Weight Status Overweight Last BM Jan 23, 2018 Food Allergies No Usual Diet At Home Unable to assess per EMR Skin Integrity Comment: Jeff scale: 11; per Education Administrator note 01/17/18: 1. Sacral-Coccygeal area: Pressure ulcer, present on admission. Estimated Energy Expenditure (kcals/day) 1685 kcal/day (PSU 2002 for critical illness, intubated on vent) Estimated Protein Required (g/day) 67-112 gm/day (1.2-2 gm/kg Adj IBW for sepsis) Estimated Fluid Required (l/day) Per MD (ARF) Problem/Etiology/Signs/Symptoms Inadequate enteral nutrition related to metabolic demands as evidenced by current TF regimen meets 79% of estimated caloric needs and 94% of estimated protein needs. *improved Expected Outcomes/Goals - Monitor tolerance to EN support w/ goal of pt meeting at least 85% of estimated nutritional needs, labs trending WNL, normal GI function, and skin integrity/wt maintenance Dietitian Recommendations * Recommend Glucerna 1.2 at 40 ml/hr, Marques BID, Prosource TID, Free Water Flush: 100 q4 via GT Provides: 1508 kcal/day, 108 gm protein/day, and 1373 ml free water/day Meets: 89% of estimated caloric needs and 108% of estimated protein needs Follow Up High Risk: F/U in 2-3 days
--- NOTE | 2018-01-31 16:28 | NUR ---
Dietitian Recommendations * Recommend Glucerna 1.2 at 40 ml/hr, Marques BID, Prosource TID, Free Water Flush: 100 q4 via GT Provides: 1508 kcal/day, 108 gm protein/day, and 1373 ml free water/day Meets: 89% of estimated caloric needs and 108% of estimated protein needs LP, RD Please refer to Nutrition F/U for details.
[2018-01-31] MEDS: INSULIN REGULAR, HUMAN 100 UNITS/ML, 10 ML VIAL (novoLIN R) SUBCUT PRN (17:17)
--- NOTE | 2018-01-31 19:30 | NUR ---
PM ASSESSMENT REPORT RECEIVED FROM SUNNI CARMONA. PT RECEIVED IN BED WITH EYES OPEN RESPONDING TO TACTILE STIMULATION. VSS, NO S/S OF ACUTE DISTRESS NOTED. PT TRACH TO VENT, VENT SETTINGS: AC 14, TV 500, FIO2 30%, PEEP 5. MARIBEL PICC IN PLACE INFUSING 1/2 NS @ 30 CC/HR. G-TUBE IN PLACE RUNNING GLUCERNA TUBEFEEDING @ 40 CC/HR. LT SIDE COLOSTOMY IN PLACE DRAINING LOOSE BROWN STOOL. MANJARREZ CATH IN PLACE DRAINING YELLOW URINE WITH SEDIMENTS TO GRAVITY. SCDS IN PLACE. HOB ELEVATED, BED IN LOWEST POSITION, CALL LIGHT IN REACH. WILL CONTINUE TO MONITOR PT.
--- NOTE | 2018-01-31 19:31 | NUR ---
PT IN STABLE CONDITION. BP 98/50, RR 16, HR 77, 02 SAT 94%, TEMP 98.6. ENDORSED TO NIGHT KRISTINE MARKHAM.
--- NOTE | 2018-01-31 22:34 | NUR ---
FAMILY CALL SPOKE WITH PTS DAUGHTER SHARITA AT THIS TIME. DAUGHTER UPDATED ON PT CONDITION AND ALL QUESTIONS ANSWERED. DAUGHTER HAD QUESTIONS ON PT DISCHARGE PLANNING AND DAUGHTER MADE AWARE OF PLAN TO DC TO LTAC. PER DAUGHTER SHE DOES NOT APPROVE DC PLAN AND WOULD RATHER HAVE PT COME HOME STATING THAT "WE ARE WELL EQUIPPED TO TAKE CARE OF HER". WILL MAKE CARDIOLOGY COORDINATOR AWARE.
[2018-02-01] VITALS (37 sets, daily range): BP systolic 104–144
[2018-02-01] MEDS: IPRATROPIUM BROM 0.5 MG/2.5 ML VIAL.NEB (ATROVENT) INH SCH ×4 (00:30→19:31)
[2018-02-01] MEDS: ALBUTEROL SULFATE 0.083% 2.5 MG/3 ML VIAL.NEB INH SCH ×4 (00:30→19:31)
--- NOTE | 2018-02-01 00:30 | NUR ---
RN ROUNDS PT RESTING COMFORTABLY IN BED AT THIS TIME. VSS, NO S/S OF ACUTE DISTRESS NOTED. PT REPOSITIONED AND ORAL CARE PROVIDED AT THIS TIME. MANJARREZ CATH LEAKING, JOAN CARE PROVIDED AND LINENS CHANGED. SACRAL DRESSING ALSO REPLACED. PT TOLERATED WELL. WILL CONTINUE TO MONITOR.
--- NOTE | 2018-02-01 05:00 | NUR ---
RN ROUNDS PT RESTING COMFORTABLY IN BED WITH EYES OPEN. VSS, NO S/S OF ACUTE DISTRESS NOTED. BREATHING IS EVEN AND UNLABORED ON MECHANICAL VENTILATOR. WILL CONTINUE TO MONITOR PT.
[2018-02-01] MEDS: METOCLOPRAMIDE HCL 10 MG/2 ML VIAL IVP SCH ×4 (06:22→23:27)
[2018-02-01] MEDS: FERROUS SULFATE 300 MG/5 ML UDC GT SCH ×3 (06:22→17:48)
[2018-02-01 06:51] LABS: BASOPHILS % (AUTO) 0.1 % (0.0-2.0); EOSINOPHILS # (AUTO) 0.2 K/uL (0.0-0.4); EOSINOPHILS % (AUTO) 1.8 % (0.0-4.0); HEMATOCRIT 22.7 % (36-48); HEMOGLOBIN 7.6 g/dL (12.0-16.0); LYMPHOCYTES # (AUTO) 1.2 K/uL (1.0-5.5); LYMPHOCYTES % (AUTO) 12.5 % (20.5-51.5); MEAN CORPUSCULAR HEMOGLOBIN 26 pg (27-31); MEAN CORPUSCULAR HGB CONC 34 % (32-36); MEAN CORPUSCULAR VOLUME 79 fL (79.0-98.0); MONOCYTES # (AUTO) 0.6 K/uL (0.0-1.0); MONOCYTES % (AUTO) 6.6 % (1.7-9.3); NEUTROPHILS # (AUTO) 7.7 K/uL (1.8-7.7); PLATELET COUNT (AUTO) 356 K/uL (130-430); RED BLOOD CELL COUNT(AUTO) 2.89 MIL/uL (4.2-6.2); RED CELL DISTRIBUTION WIDTH 22.1 % (9.0-15.0)
[2018-02-01 07:12] LABS: CREATININE 0.87 mg/dL (0.55-1.30); POTASSIUM 3.7 mmol/L (3.5-5.1)
[2018-02-01 07:24] LABS: WHITE BLOOD COUNT (AUTO) 9.7 K/uL (4.8-10.8)
--- NOTE | 2018-02-01 07:30 | NUR ---
AM ASSESSMENT Pt received laying in bed with eyes open, pt is unable to track at this time. Pt is trach to vent with settings of AC 14, TV 500, FiO2 30%, PEEP 5, even and symmetrical rise and fall of chest. Glucerna 1.2 being administered via G-Tube with a rate of 40 cc/hr with G-Tube patent. Hernandez cath in place draining urine to gravity. Bilateral SCD's in place. Call light within reach. No signs of distress, will continue to monitor.
[2018-02-01] MEDS: CALCIUM CARBONATE/VITAMIN D3 1 TAB TABLET GT SCH ×2 (09:08→21:00)
[2018-02-01] MEDS: CHOLECALCIFEROL (VITAMIN D3) 2,000 UNIT TABLET GT SCH (09:09)
[2018-02-01] MEDS: ASCORBIC ACID 500 MG TABLET GT SCH ×2 (09:09→21:04)
[2018-02-01] MEDS: LACTOBACILLUS RHAMNOSUS GG 1 CAP CAPSULE GT SCH ×2 (09:09→21:04)
[2018-02-01] MEDS: NAPH,MB-DB/K PH,MBDB 250 MG TAB GT SCH ×3 (09:09→21:04)
[2018-02-01] MEDS: PANTOPRAZOLE SODIUM 40 MG/VIAL (PROTONIX) IVP SCH ×2 (09:10→21:03)
[2018-02-01] MEDS: MULTIVIT-MINERALS/FERROUS GLUC 15 ML UDC GT SCH ×2 (09:10→21:00)
[2018-02-01] MEDS: LACTULOSE 20 GM/30 ML UDC GT SCH ×2 (09:10→21:04)
[2018-02-01] MEDS: LevETIRAcetam 500 MG/5 ML UDC ORAL LIQUID GT SCH ×2 (09:10→21:07)
[2018-02-01] MEDS: D5W IV SCH ×3 (10:26→23:29)
[2018-02-01] MEDS: TAZOBACTAM IV SCH ×3 (10:26→23:29)
[2018-02-01] MEDS: CEFTOLOZANE IV SCH ×3 (10:26→23:29)
--- NOTE | 2018-02-01 10:39 | NUR ---
Case mgt: Left message for Shama at [address] at [phone]--was transferred to ext [phone]--Ozekjkbez call back to verify she received faxed info on Medicare exhausted days so that we may proceed with LTAC order--Pt is tracheostomy POD#2 new agueda. LUCILA CARMONA
[2018-02-01] MEDS: BALSAM PERU/CASTOR OIL 60 GM OINT...G. TP SCH (10:46)
--- NOTE | 2018-02-01 10:53 | NUR ---
Case mgt: I called Zahra at [facility] [phone]--she said pt clinically accepted but needs auth from [address] insurance. I told her I have a call out to Shama at [address] to discuss. I called dtr Maci at [phone] to discuss LTAC referral. She requested I call back in about 10 min.
--- NOTE | 2018-02-01 11:53 | NUR ---
Case mgt: S/W dtr Maci -she refuses any facility and insists that she will take pt home and learn to care for pt on trach/vent. I explained that care would be required 06/09 for pt and we can work on Home Health and DME for vent/02, trach supplies, suction machine, etc. and that she should work with our staff here to learn basic trach,vent care if MD agrees. ICU nurse Lauren updated with this request and she will discuss with Dr. Vaelntine. LUCILA CARMONA
--- NOTE | 2018-02-01 13:15 | NUR ---
CHG Pt provided a CHG. Washed hair with ICU provided shower cap, with partial linen change. Pt tolerated well, will continue to monitor.
--- NOTE | 2018-02-01 13:30 | NUR ---
Wound Care Pt provided wound care and pictures taken and placed in chart.
--- NOTE | 2018-02-01 14:00 | NUR ---
Family Pt's daughter Maci is at bedside with her . Maci stated that she "did not what her mom at a SNF or LTAC facility and only wants home" also stated that she spoke to case advocate and informed them of her wishes to bring the pt home, and is awaiting information on ventilator classes.
--- NOTE | 2018-02-01 15:43 | NUR ---
Case mgt: Rec'd orders for home health for disease management, wound care, and trach vent care -family teaching. I called [facility] at [phone] and s/w Stephanie re: orders for for new trach/vent -pt has been on service with them prior to receiving trach/vent. Stephanie said she will need to s/w her health administrator re: trach/vent status to see if they can manage this pt's care at home. I did explain daughter Maci was willing to be taught trach/vent care of pt also. Stephanie at [facility] gave me fax#[phone]-I am faxing the orders, prog notes, H&P, medications, face sheet to Stephanie. LUCILA RN
--- NOTE | 2018-02-01 16:14 | NUR ---
Case mgt: Rec'd call back from Stephanie at [facility]. She said she s/w her sales ledger administrator and they cannot service this pt at this time as they have only one nurse who specializes in ventilator patients and she is unavailable until the end of February 2018. Per Stephanie, their certification period with Medicare ended with pt during the pt's hospitalization so no need for daughter to call them to cancel service if we want to utilize a different home health agency. LUCILA RN
--- NOTE | 2018-02-01 19:21 | NUR ---
Closing Notes Pt endorsed to [facility] RN using SBAR. Vital signs stable.
--- NOTE | 2018-02-01 19:22 | NUR ---
OPENING NOTE Received patient resting in the bed with eyes closed. No acute distress. Trach intact to vent: AC=14, FP=567, FIo2=30%, PEEP=5. skin warm and dry to touch. PICC line intact to MARIBEL, no redness, no swelling, no drainage, covering with clean and dry transparent dressing. F/C intact, drain gravity with sediment. On contact isolation. Safety measure maintained. Seizure precaution maintained. Call light within reached. Bed locked in low position, padded side rails up. will continue to monitor.
[2018-02-01] MEDS ORDERED: levETIRAcetam 500 MG TABLET ONE (20:58)
[2018-02-01] MEDS ORDERED: CALCIUM 600/VIT D ONE (21:03)
[2018-02-01] MEDS: 0.45% NACL 1,000 ML IV SCH (21:29)
--- NOTE | 2018-02-01 22:30 | NUR ---
HANDS OFF Report given to Elizabeth at bedside, SBAR given. Patient vital signs stable.
--- NOTE | 2018-02-01 22:35 | NUR ---
PM SHIFT ASSESSMENT Report received from KRISTINE EATON. Pt awake, non-verbal. SPO2 via trach to vent. RR even and unlabored. SR noted on monitor. PICC to MARIBEL, with IVF infusing, no signs of infiltration noted. Hernandez catheter in place and draining to gravity. Colostomy noted to LLQ with loose stools. Wound to coccyx, dressing in place. Gtube noted with tubefeeding infusing. No signs of SOB or acute distress noted. Safety precautions in place, call light within reach. Will continue to monitor.
[2018-02-02] VITALS (36 sets, daily range): BP systolic 73–140
[2018-02-02] MEDS: IPRATROPIUM BROM 0.5 MG/2.5 ML VIAL.NEB (ATROVENT) INH SCH ×4 (01:32→19:43)
[2018-02-02] MEDS: ALBUTEROL SULFATE 0.083% 2.5 MG/3 ML VIAL.NEB INH SCH ×4 (01:32→19:43)
[2018-02-02 05:40] LABS: BASOPHILS % (AUTO) 0.3 % (0.0-2.0); EOSINOPHILS # (AUTO) 0.1 K/uL (0.0-0.4); EOSINOPHILS % (AUTO) 1.6 % (0.0-4.0); HEMATOCRIT 23.4 % (36-48); LYMPHOCYTES # (AUTO) 1.3 K/uL (1.0-5.5); LYMPHOCYTES % (AUTO) 14.6 % (20.5-51.5); MEAN CORPUSCULAR HEMOGLOBIN 25 pg (27-31); MEAN CORPUSCULAR HGB CONC 32 % (32-36); MEAN CORPUSCULAR VOLUME 78 fL (79.0-98.0); MONOCYTES # (AUTO) 0.6 K/uL (0.0-1.0); MONOCYTES % (AUTO) 6.5 % (1.7-9.3); NEUTROPHILS # (AUTO) 6.9 K/uL (1.8-7.7); PLATELET COUNT (AUTO) 378 K/uL (130-430); RED BLOOD CELL COUNT(AUTO) 3.01 MIL/uL (4.2-6.2); RED CELL DISTRIBUTION WIDTH 22.1 % (9.0-15.0); WHITE BLOOD COUNT (AUTO) 8.9 K/uL (4.8-10.8)
[2018-02-02 05:41] LABS: HEMOGLOBIN 7.5 g/dL (12.0-16.0)
[2018-02-02 05:52] LABS: CREATININE 0.76 mg/dL (0.55-1.30); POTASSIUM 3.4 mmol/L (3.5-5.1)
[2018-02-02] MEDS ORDERED: METOCLOPRAMIDE HCL 10 MG/2 ML VIAL ONE (05:54)
[2018-02-02] MEDS: FERROUS SULFATE 300 MG/5 ML UDC GT SCH ×3 (06:02→17:08)
[2018-02-02] MEDS: METOCLOPRAMIDE HCL 10 MG/2 ML VIAL IVP SCH ×4 (06:03→23:24)
--- NOTE | 2018-02-02 07:35 | NUR ---
ENDORSEMENT Pt care endorsed to dayshift RN at bedside using nursing SBAR.
--- NOTE | 2018-02-02 08:00 | NUR ---
RN OPENING NOTE PATIENT RECEIVED FROM THE CONTROL INTEGRATION ENGINEER NURSE. PATIENT OPEN EYES. APPEARS IN NO PAIN OR DISCOMFORT. PATIENT WAS ASSESSED, VITAL SIGNS ARE STABLE. ON FLACC SCALE PATIENT SHOWS NO SIGNS OF PAIN OR DISCOMFORT. PATIENT COLOSTOMY BAG WAS EMPTIES WITH 100 CC OF LOOSE DARK BROWN STOOL. VENT SETTING WAS CHECKED AGAINST THE PRESCRIBED SETTING. DR. MORALES SAW THE PATIENT WELL DR. OAKLEY. THE PULMONARY M.D PATIENT WAS REPOSITIONED IN BED. BED AT LOW POSITION, PATIENT WAS GIVEN HER IVPB ANTIBIOTICS. WILL PASS THE REST OF MEDICATION AT 0900. WILL CONTINUE TO MONITOR.
[2018-02-02] MEDS: CEFTOLOZANE IV SCH (08:40)
[2018-02-02] MEDS: TAZOBACTAM IV SCH (08:40)
[2018-02-02] MEDS: D5W IV SCH (08:40)
[2018-02-02] MEDS: ASCORBIC ACID 500 MG TABLET GT SCH ×2 (08:41→20:40)
[2018-02-02] MEDS: CHOLECALCIFEROL (VITAMIN D3) 2,000 UNIT TABLET GT SCH (08:41)
[2018-02-02] MEDS: NAPH,MB-DB/K PH,MBDB 250 MG TAB GT SCH ×3 (08:41→20:40)
[2018-02-02] MEDS: PANTOPRAZOLE SODIUM 40 MG/VIAL (PROTONIX) IVP SCH ×2 (08:41→20:41)
[2018-02-02] MEDS: LACTOBACILLUS RHAMNOSUS GG 1 CAP CAPSULE GT SCH ×2 (08:41→20:40)
[2018-02-02] MEDS: CALCIUM CARBONATE 500 MG/ TAB.CHEW GT PRN (08:42)
[2018-02-02] MEDS: LACTULOSE 20 GM/30 ML UDC GT SCH ×2 (08:42→20:40)
[2018-02-02] MEDS: BALSAM PERU/CASTOR OIL 60 GM OINT...G. TP SCH (08:43)
--- NOTE | 2018-02-02 10:00 | NUR ---
RN NOTE PATIENT RESTING ON BED, SHOWS NO PAIN ACCORDING TO FLACC SCALE. PATIENT WAS REPOSITIONED. AND PICC LINE DRESSING WAS CHANGED
[2018-02-02] MEDS: LevETIRAcetam 500 MG/5 ML UDC ORAL LIQUID GT SCH ×2 (10:12→20:41)
[2018-02-02] MEDS: MULTIVIT-MINERALS/FERROUS GLUC 15 ML UDC GT SCH ×2 (10:12→20:39)
--- NOTE | 2018-02-02 11:09 | NUR ---
DC PLANNING Spoke w dtr & son in law @ bedside, informed [facility] cannot cont to see pt upon dc, will need new home health that can see pt w new trach/vent. Dtr agreeable w any home health that can handle trach/vent. Confirmed that want pt to go home w trach/vent do not want LTAC/Subacute. States they will learn how to take care of pt w trach/vent, per dtr had some training yest. Informed pt's nurse Lamar that dtr/son in law will need training on trach/vent care, aware already states will also have RT train family.
--- NOTE | 2018-02-02 12:00 | NUR ---
RN NOTE PATIENT RESTING ON BED, FAMILY MEMBERS BY THE BED SIDE, DAUGHTER WAS EDUCATED HOW TO USE THE VENT AND HOW TO SUCTION AND HOW TO CLEAR THE MUCOUS FROM THE TUBE AND HOW TO DO THE TRACHEAL DRESSING, SHE VERBALIZED UNDERSTANDING. PATIENT BLOOD SUGAR WAS MEASURED, NO COVERAGE REQUIRED.
--- NOTE | 2018-02-02 13:05 | NUR ---
WOUND RE-EVALUATION: Patient received in a [place] Bed with an Isoflex ENE mattress with low air-loss therapy, awake, alert, nonverbal, nonresponsive to verbal commands. Patient is unable to turn in bed independently. Jeff Score is a 14. Intrinsic factors that delay wound healing: Diabetes Mellitus, Anemia. Extrinsic factors that delay wound healing: Immobility. Wound Assessment: 1. Sacral-Coccygeal area: Stage IV Pressure ulcer, present on admission. Wound bed has 30% yellow tissue, 55% pink tissue, 15% black tissue. No odor, scant sanguineous drainage. Dark discolored tissue present on surrounding tissue. Wound measures 5.0 cm 5.5 cm x 4.4 cm. Undermining present from 8-2 o-clock, deepest 3.2 cm at 11 o'clock. Underminin o'clock: 1.0 cm; 3 o'clock: 0.0 cm; 6 o'clock: 0.0 cm; 9 o'clock: 2.9 cm. Recommend continue: Cleanse wound with normal saline. Place moisture barrier cream onto bowen-wound. Apply thick coat of Venelex ointment onto wound bed, then Hydrogel. Pack wound with two 2.2 inch TenderWet dressings, pushing one dressing into undermined area. Cover with Sacral foam dressing. Perform wound care daily, and as needed for dressing soiling or dislodgement. Also recommend continue: Reposition patient side to side only every hour with pillow support (place a wedge underneath the trunk and the pillow underneath the buttock and posterior thigh to allow the sacrococcygeal area to float freely at all times). Off-load pressure areas with pillows for pressure re-distribution. Offload, elevate and float bilateral heels with one pillow lengthwise under each extremity at all times. Perform skin care and monitor skin integrity Q shift. Use moisture barrier cream on buttocks and other moisture susceptible areas QID and as needed for soiling. Maintain patient on a low air-loss mattress.
--- NOTE | 2018-02-02 14:00 | NUR ---
RN NOTE PATIENT RESTING ON BED. SHOWS NO SIGNS OF PAIN, FAMILY MEMBERS ARE ABOUT TO LEAVE TO GO BACK HOME. PATIENT IS BEING REPOSITIONED EVERY ONE HOUR .WILL CONTINUE TO MONITOR.
[2018-02-02] MEDS: CALCIUM CARBONATE/VITAMIN D3 1 TAB TABLET GT SCH ×2 (14:49→20:38)
--- NOTE | 2018-02-02 16:00 | NUR ---
RN NOTE PATIENT WAS REPOSITIONED. AND THE COLOSTOMY BAG WAS EMPTIED, PATIENT SHOWS NO SIGNS OF PAIN OR DISCOMFORT. STARTED ON SIMV ON THE VENT WILL MONITOR THE PROGRESS
--- NOTE | 2018-02-02 16:27 | NUR ---
Discharge Planning: DCP faxed pt referral to [facility] (f [phone] p [phone]): Dcp to follow up.
--- NOTE | 2018-02-02 16:35 | NUR ---
RT NOTES: 1520: PER ORDER CHANGE TO VENT SETTINGS TO SIMV 8, PS 10, PEEP+5 TOLERATED. 1527 PT VITAL SIGNS ARE STABLE: HEART RATE 65bpm, RESPIRATORY RATE 24bpm, SPO2 100%, BP: 124/50. 1620: PT CONTINUES TO EVAN. SIMV SETTINGS. Addendum: 02/02/18 at 1639 by Nathalia Thomas RT Amended: Links added.
[2018-02-02] MEDS ORDERED: POTASSIUM CHLORIDE 20 MEQ/PKT PACKET GT ONE (16:45)
[2018-02-02] MEDS ORDERED: EPOETIN ALFA 4,000 UNITS/ML VIAL SUBCUT ONE (17:45)
--- NOTE | 2018-02-02 18:00 | NUR ---
RN CLOSING NOTE PATIENT RESTING ON BED, ON SIMV. PATIENT IS DOING VERY WELL. PATIENT WAS GIVEN HER MEDICATION. EPOGEN WAS NOT GIVEN SINCE IT DIDN'T COME YET FROM THE PHARMACY, WILL ENDORSE TO NEXT SHIFT. PATIENT WOUND WAS CHANGED EARLIER AND THE PROCESS IS DOCUMENTED.
--- NOTE | 2018-02-02 19:20 | NUR ---
PM SHIFT ASSESSMENT Pt awake, non-verbal. SPO2 via trach to vent. RR even and unlabored. SR noted on monitor. PICC to MARIBEL, with IVF infusing, no signs of infiltration noted. Hernandez catheter in place and draining to gravity. Colostomy noted to LLQ with loose stools. Wound to coccyx, dressing in place. Gtube noted with tubefeeding infusing. No signs of SOB or acute distress noted. Safety precautions in place, call light within reach. Will continue to monitor.
[2018-02-02] MEDS: POTASSIUM CHLORIDE 20 MEQ/PKT PACKET GT SCH (20:40)
[2018-02-03] VITALS (25 sets, daily range): BP systolic 101–158
[2018-02-03] MEDS: ALBUTEROL SULFATE 0.083% 2.5 MG/3 ML VIAL.NEB INH SCH ×4 (01:05→20:04)
[2018-02-03] MEDS: IPRATROPIUM BROM 0.5 MG/2.5 ML VIAL.NEB (ATROVENT) INH SCH ×4 (01:05→20:04)
[2018-02-03] MEDS: 0.45% NACL 1,000 ML IV SCH (05:07)
[2018-02-03] MEDS: METOCLOPRAMIDE HCL 10 MG/2 ML VIAL IVP SCH ×3 (05:07→18:30)
[2018-02-03] MEDS: FERROUS SULFATE 300 MG/5 ML UDC GT SCH ×3 (06:25→18:29)
[2018-02-03 06:51] LABS: ALBUMIN 1.4 g/dL (3.4-4.8); CALCIUM 9.2 mg/dL (8.4-11.0); CREATININE 0.8 mg/dL (0.55-1.30); POTASSIUM 4.1 mmol/L (3.5-5.1); TOTAL BILIRUBIN 0.2 mg/dL (0.0-1.0)
[2018-02-03 06:59] LABS: HEMATOCRIT 25.4 % (36-48); HEMOGLOBIN 8.4 g/dL (12.0-16.0); MEAN CORPUSCULAR HEMOGLOBIN 26 pg (27-31); MEAN CORPUSCULAR HGB CONC 33 % (32-36); MEAN CORPUSCULAR VOLUME 78 fL (79.0-98.0); RED BLOOD CELL COUNT(AUTO) 3.25 MIL/uL (4.2-6.2); WHITE BLOOD COUNT (AUTO) 11.1 K/uL (4.8-10.8)
[2018-02-03 07:00] LABS: BASOPHILS % (AUTO) 0.2 % (0.0-2.0); EOSINOPHILS # (AUTO) 0.2 K/uL (0.0-0.4); EOSINOPHILS % (AUTO) 1.8 % (0.0-4.0); LYMPHOCYTES # (AUTO) 1.4 K/uL (1.0-5.5); MONOCYTES # (AUTO) 0.7 K/uL (0.0-1.0); MONOCYTES % (AUTO) 6.2 % (1.7-9.3); NEUTROPHILS # (AUTO) 8.8 K/uL (1.8-7.7); NEUTROPHILS % (AUTO) 78.8 % (40.0-70.0); PLATELET COUNT (AUTO) 336 K/uL (130-430)
--- NOTE | 2018-02-03 07:25 | NUR ---
ENDORSEMENT Pt care endorsed to KRISTINE Gracia at bedside using nursing SBAR.
--- NOTE | 2018-02-03 07:50 | NUR ---
AM ASSESSMENT. PT SEEN AWAKE, ORAL CARE DONE, REPOSITIONED IN BED, SWELLING TO UPPER ARMS, PICC INTACT IN RIGHT UPPER ARM, DRESSING DRY AND CLEAN, ISOLATION PRECAUTION, MDRO, ESBL, E COLI, GASTRIC RESIDUAL NONE WHEN FEEDING WAS ASPIRATED, ABDOMEN SOFT ON PALPATION, COLOSTOMY DRAINING LOOSE DARK COLOR BROWN.
[2018-02-03] MEDS: BALSAM PERU/CASTOR OIL 60 GM OINT...G. TP SCH (09:13)
[2018-02-03] MEDS: MULTIVIT-MINERALS/FERROUS GLUC 15 ML UDC GT SCH ×2 (09:13→21:00)
[2018-02-03] MEDS: LACTOBACILLUS RHAMNOSUS GG 1 CAP CAPSULE GT SCH ×2 (09:14→21:00)
[2018-02-03] MEDS: NAPH,MB-DB/K PH,MBDB 250 MG TAB GT SCH ×3 (09:14→21:00)
[2018-02-03] MEDS: CALCIUM CARBONATE 500 MG/ TAB.CHEW GT PRN (09:15)
[2018-02-03] MEDS: ASCORBIC ACID 500 MG TABLET GT SCH ×2 (09:15→21:00)
[2018-02-03] MEDS: LACTULOSE 20 GM/30 ML UDC GT SCH ×2 (09:15→21:00)
[2018-02-03] MEDS: CHOLECALCIFEROL (VITAMIN D3) 2,000 UNIT TABLET GT SCH (09:15)
[2018-02-03] MEDS: POTASSIUM CHLORIDE 20 MEQ/PKT PACKET GT SCH ×2 (09:16→21:00)
[2018-02-03] MEDS: PANTOPRAZOLE SODIUM 40 MG/VIAL (PROTONIX) IVP SCH ×2 (09:16→22:02)
[2018-02-03] MEDS: CALCIUM CARBONATE/VITAMIN D3 1 TAB TABLET GT SCH ×2 (09:17→21:00)
[2018-02-03] MEDS: LevETIRAcetam 500 MG/5 ML UDC ORAL LIQUID GT SCH ×2 (09:19→21:00)
--- NOTE | 2018-02-03 12:00 | NUR ---
SKIN CARE. BATHED PT WITH CHG WIPES, REGULAR WIPES ONTO FACE, GENITAL AREA. WOUND DRESSING REMOVED. WASHED WOUND TO SACRAL AREA WITH SALINE, VENELEX OINTMENT, HYDROGEL, TENDERWETS AND COVERED WOUND WITH FOAM DRESSING.
--- NOTE | 2018-02-03 13:20 | NUR ---
HOME CARE CARTON AND CAN SUPPLY SUPERVISOR OF [facility] CAME IN FOR EVALUATION.
[2018-02-03] MEDS ORDERED: EPOETIN ALFA 4,000 UNITS/ML VIAL SUBCUT ONE (13:45)
--- NOTE | 2018-02-03 13:47 | NUR ---
. DR BYRNES IN THE PT'S ROOM, ASSESSED THE PATIENT, PT AWAKE, NO FACIAL EXPRESSION.
--- NOTE | 2018-02-03 15:12 | NUR ---
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 on GT feeding, DM type 2, HTN, HLD, atherosclerosis, neurogenic bladder, diverting colostomy, sacral PU stage 3, severe protein malnutrition, chronic pulmonary scarring per MD notes 02/03/18 Attending MD notes: acute hypoxic respiratory failure weaning attempts several times; tracheostomy on 01/30/18; sepsis and septic shock; aspiration pneumonia; acute metabolic encephalopathy; NINOSKA/ATN + hypernatremia + hypokalemia; dehydation, anemia/iron deficiency and anemia of chronic illness; seizure disorder; 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 Per RN, pt has been tolerating TF well, no residuals, and plans for transfer to telemetry unit. Per EMR, TF Intakes: 320 ml 02/03/18. Residuals: 2 ml 02/03/18. Abd is soft and non-distended w/ active bowel sounds. I/O: 840/1160 (-320 ml) per 12 hours. Current TF regimen is adequate/appropriate. Current Diet Order/Nutrition Support Glucerna at 40 ml/hr, Marques BID, Prosource TID Free Water Flush: 50CC Q6 via GT x3 days Patient/Significant Other Unable To Verbalize Education Provided Not Indicated Pertinent Medications neutraphos, reglan, zofran, VIT D-3, protonix, culturelle, centrum, zinc sulfate, lactulose, os-shorty, VIT C, ferrous sulfate, SSI, tums, colace Pertinent Labs BG 125 H, POC BG 146 H, BUN 27 H, ALB 1.4 L, Mg 1.8 WBL (improved), H/H 8.4 L/25.4 L, WBC 11.1 H Height (Feet) 5 feet Height (Inches) 3.00 inches Weight (Pounds) 152 pounds (01/17/18) BED SCALE WT: 186.5 lb (01/23) ---may be inaccurate d/t blankets/pillows Weight (Calculated Kilograms) 68.453318 kilograms Patient Weight 68.946 kg Body Mass Index 26.92 kg/m2 %IBW 133 [place]/Adjusted Body Weight IBW: 115 lb, 52 kg. Adj IBW (obesity): 124 lb, 56 kg Recent Weight Change No Weight Status Overweight Last BM Jan 23, 2018 Food Allergies No Usual Diet At Home Unable to assess per EMR Skin Integrity Comment: Jeff scale: 11; per Match Marker note 01/17/18: 1. Sacral-Coccygeal area: Pressure ulcer, present on admission. NEW Estimated Energy Expenditure (kcals/day) 2151-3714 kcal/day (30-35 kcal/kg Adj IBW for sepsis) Estimated Protein Required (g/day) 67-112 gm/day (1.2-2 gm/kg Adj IBW for sepsis) Estimated Fluid Required (l/day) Per MD (ARF) Problem/Etiology/Signs/Symptoms Inadequate enteral nutrition related to metabolic demands as evidenced by current TF regimen meets 79% of estimated caloric needs and 94% of estimated protein needs. *improved Expected Outcomes/Goals - Monitor tolerance to EN support w/ goal of pt meeting at least 85% of estimated nutritional needs, labs trending WNL, normal GI function, and skin integrity/wt maintenance Dietitian Recommendations * Recommend Glucerna 1.2 at 40 ml/hr, Marques BID, Prosource TID, Free Water Flush: 100 q4 via GT Provides: 1508 kcal/day, 108 gm protein/day, and 1373 ml free water/day Meets: 90% of estimated caloric needs and 108% of estimated protein needs Follow Up Moderate Risk: F/U in 3-5 days
--- NOTE | 2018-02-03 15:22 | NUR ---
Dietitian Recommendations * Recommend Glucerna 1.2 at 40 ml/hr, Marques BID, Prosource TID, Free Water Flush: 100 q4 via GT Provides: 1508 kcal/day, 108 gm protein/day, and 1373 ml free water/day Meets: 90% of estimated caloric needs and 108% of estimated protein needs LP, RD Please refer to Nutrition F/U for details.
--- NOTE | 2018-02-03 15:49 | NUR ---
Discharge Planning: DCP received message from Jerri ([phone]) at [facility] (f [phone] p [phone]); Jerri stated the patient would be accessed at bed side today at bed side. Then the family would be contacted so the home could be accessed, to verify equipment could be supported. There would be 3 day training of to 2 people (2 family members/caregiver) at hospital bedside, then a trial would be done at hospital bedside. This will take 7 to 10 days to set up. Per Jerri no discharge on Fridays.
--- NOTE | 2018-02-03 15:50 | NUR ---
NURSING. GENTLY TURNED PT TO HER SIDE, WEDGE PILLOW USED TO HER BACK. ELEVATED FEET ON PILLOW, HEELS OFF THE MATTRESS.
--- NOTE | 2018-02-03 16:00 | NUR ---
CM DC PLANNING: SPOKE WITH CARE 1st CM/AISLINN WHO STATED Pt IS APPROVED TO GO TO LTAC IF FAMILY ARE IN AGREEMENT. THIS CM INFORMED CM/CATHIE THAT Pt's FAMILY STILL WANT TO TAKE HER HOME ON VENT/TRACHE AND RECOMMENDED CARE THAT IS BEING COORDINATED WITH [facility] AND [facility] .
--- NOTE | 2018-02-03 16:15 | NUR ---
NOTES: Tried to contact patient daughter Chandni Lux) [phone] unable to reach.able to spoke with son in law ( Sammy) [phone]. informed about the transfer ordered.
--- NOTE | 2018-02-03 17:00 | NUR ---
TO [facility] ROOM 103-A. TRANSPORTED PT VIA PORTABLE CARDIAC MONITORING, ACCOMPANIED BY R.T. ON DUTY, PT'S O2 SAT RANGES BETWEEN 95 TO 99%, PICC IN PLACE TO RIGHT UPPER ARM, COLOSTOMY INTACT, AND G TUBE. REPORT GIVEN TO KRISTINE NEUMANN.
--- NOTE | 2018-02-03 17:05 | NUR ---
transfer notes rec patient from icu opens eyes but non verbally responsive. on a mechanical ventilator and no osb noted. on contact isolation for mrsa nares, esbl urine. bed to the lowest position and side rails up and locked. call light within reached non verbal but close to the nurses station. will monitor patient till 1929.
--- NOTE | 2018-02-03 19:00 | NUR ---
closing notes attempted to give reglan through gt but clogged. an sally rn with me at bedside and try to unclogged gt. made charged nurse db aware. noted with balloon forming near the gt site when flushing. endorsed to night nurse.
--- NOTE | 2018-02-03 20:45 | NUR ---
Opening notes/GTube clogged Pt awake, eyes open. Mech vent dependent. VSS, afebrile, no acute distress noted. Oral/Trache care suction provided, noted small amount of thick yellow secretion. HOB maintained elevated. Attempted to flush G-Tube, after cranberry juice placed per AN, but unsuccessfull, still clogged even after milking it, noted with bulge near GT site when flushing. Night time meds held, charge nurse made aware, no GI consult on the case. Colostomy on Left abd noted with small brown liquidy output. PICC line on MARIBEL 2 lumen noted with good blood return, all ports capped. Hernandez catheter with yellow, cloudy urine noted, intact and secured. Sacral dressing C/D/I. Pt on low air mattress. Sz precaution in place. Will continue to monitor.
--- NOTE | 2018-02-03 21:20 | NUR ---
Spoke with pt's daughter Maci Kruger and updated on pt's room number.
[2018-02-03] MEDS: CEFEPIME 1 GM in D5W 50 ML IV SCH (22:02)
[2018-02-04] MEDS: ALBUTEROL SULFATE 0.083% 2.5 MG/3 ML VIAL.NEB INH SCH ×4 (01:07→19:49)
[2018-02-04] MEDS: IPRATROPIUM BROM 0.5 MG/2.5 ML VIAL.NEB (ATROVENT) INH SCH ×4 (01:07→19:49)
--- NOTE | 2018-02-04 01:20 | NUR ---
Rounds/Oral/Trache care Pt awake, eyes open. Oral/trache care suction provided, noted small yellow secretion. HOB maintained elevated. PT tolerated well satting at 98%. No change in Mech vent settings. Will continue to monitor.
[2018-02-04] MEDS: 0.45% NACL 1,000 ML IV SCH (01:30)
[2018-02-04] MEDS: METOCLOPRAMIDE HCL 10 MG/2 ML VIAL IVP SCH ×3 (03:29→12:27)
--- NOTE | 2018-02-04 03:40 | NUR ---
Rounds Pt asleep, no s/s distress noted. No change in mech vent settings. Safety measures in place. To monitor.
[2018-02-04 04:41] VITALS: BP_SYST 110
--- NOTE | 2018-02-04 05:15 | NUR ---
Rounds/Oral care Pt awake, alert, no s/s distress noted. Oral care provided. HOB maintained elevated. Pt tolerated well.
--- NOTE | 2018-02-04 05:20 | NUR ---
Wound care Pt alert, awake, turned pt to the L. side. Dressing to sacral wound changed per wound care order. Cleansed with NS, applied Venelex ointment and hydrogel to wound bed, and applied tender wet x2 and secured with Sacral dressing. Colostomy bag noted with 50ml brown loose stool. Pt osman well. Repositioned pt. HOB maintained elevated. To monitor.
[2018-02-04] MEDS: BALSAM PERU/CASTOR OIL 60 GM OINT...G. TP SCH (05:47)
[2018-02-04] MEDS: FERROUS SULFATE 300 MG/5 ML UDC GT SCH ×3 (06:17→17:17)
--- NOTE | 2018-02-04 06:40 | NUR ---
Closing notes Pt asleep. No s/s distress noted. No change in Mech Vent settings. IVF infusing as ordered R. PICC 2 lumens dressing C/D/I. Blood sugar checked 99. GT clogged. Hernandez catheter intact still with cloudy, yellow urine. Repositioned. HOB maintained elevated. Pt on low air loss mattress, dre SCDs in place. To endorse to AM nurse.
--- NOTE | 2018-02-04 07:10 | NUR ---
paged re G-tube Per AN nurse Torres he tried to flush GT this AM and it popped. Paged Dr. Valentine re clogged/burst G-Tube. Endorsed to AM nurse Aida.
[2018-02-04 07:32] VITALS: BP_SYST 110
--- NOTE | 2018-02-04 08:05 | NUR ---
Opening note patient received resting in bed with eyes open, patient is arousable to light stimuli, PEG tube not intact, per night nurse it was popped when attempting to flush it, right upper PICC line intact and flushing well, breathing is even and unlabored with mechanical ventilator, no signs of pain or distress is noted at this time, will continue to monitor, safety precautions in place, seizure precautions in place, contact precautions in place, call light within reach.
[2018-02-04 08:21] LABS: CALCIUM 9.2 mg/dL (8.4-11.0); CREATININE 0.67 mg/dL (0.55-1.30)
--- NOTE | 2018-02-04 08:22 | NUR ---
CONSULTATION PAGED/CALLED Reason for Consultation: [] NEW PEG PLACEMENT Person Who was Notified: [] LUISA Consulting Physician: [] DR Coral VILLAGRAN Clearing House Clerk Specialty: [] GI Ordering Physician: [] DR BYRNES
[2018-02-04 08:26] LABS: ALBUMIN 1.4 g/dL (3.4-4.8); TOTAL BILIRUBIN 0.3 mg/dL (0.0-1.0)
[2018-02-04 08:34] VITALS: BP_SYST 125
[2018-02-04] MEDS: PANTOPRAZOLE SODIUM 40 MG/VIAL (PROTONIX) IVP SCH (09:41)
[2018-02-04] MEDS: CEFEPIME 1 GM in D5W 50 ML IV SCH ×2 (09:41→19:58)
--- NOTE | 2018-02-04 10:35 | NUR ---
Notes patient is resting in bed with eyes open, IVF infusing well with no signs of infiltration, no acute distress or pain is noted, breathing is even per mechanical ventilator with oxygen saturation of 93%, will continue to monitor, safety precautions in place, seizure precautions in place, contact precautions in place, call light within reach.
[2018-02-04] MEDS ORDERED: DIATR MEGLU/DIATRIZ SOD 30 ML SOLUTION PO ONE (11:27)
--- NOTE | 2018-02-04 12:19 | NUR ---
G TUBE CONFIRMED IN STOMACH.
[2018-02-04 12:22] VITALS: BP_SYST 138
[2018-02-04] MEDS: POTASSIUM CHLORIDE 20 MEQ/PKT PACKET GT SCH ×2 (12:27→20:00)
[2018-02-04] MEDS: ASCORBIC ACID 500 MG TABLET GT SCH ×2 (12:27→20:00)
[2018-02-04] MEDS: NAPH,MB-DB/K PH,MBDB 250 MG TAB GT SCH ×3 (12:28→20:05)
[2018-02-04] MEDS: LACTOBACILLUS RHAMNOSUS GG 1 CAP CAPSULE GT SCH ×2 (12:28→20:00)
[2018-02-04] MEDS: LACTULOSE 20 GM/30 ML UDC GT SCH ×2 (12:28→20:00)
[2018-02-04] MEDS: CHOLECALCIFEROL (VITAMIN D3) 2,000 UNIT TABLET GT SCH (12:28)
[2018-02-04] MEDS: CALCIUM CARBONATE/VITAMIN D3 1 TAB TABLET GT SCH ×2 (12:28→20:00)
[2018-02-04] MEDS: MULTIVIT-MINERALS/FERROUS GLUC 15 ML UDC GT SCH ×2 (12:28→20:01)
[2018-02-04] MEDS: LevETIRAcetam 500 MG/5 ML UDC ORAL LIQUID GT SCH ×2 (12:29→20:02)
[2018-02-04 13:25] VITALS: BP_SYST 138
--- NOTE | 2018-02-04 14:00 | NUR ---
Notes patient is resting in bed, no acute distress or pain is noted at this time, IVF infusing well with no signs of infiltration, breathing is even on mechanical ventilator, will continue to monitor, safety precautions in place, contact precautions in place, seizure precautions in place, call light within reach.
--- NOTE | 2018-02-04 16:15 | NUR ---
NOTES PATIENT IS RESTING IN BED WITH EYES OPEN, PATIENT IS TOLERATING TUBE FEEDING WELL WITH NO SIGNS OF NAUSEA OR VOMITING, NO SIGNS OF ACUTE DISTRESS OR PAIN IS NOTED, MANJARREZ CATHETER IS DRAINING BY GRAVITY, IVF INFUSING WELL WITH NO SIGNS OF INFILTRATION, BREATHING IS EVEN ON MECHANICAL VENTILATOR WITH OXYGEN SATURATION OF 95%, WILL CONTINUE TO MONITOR, SAFETY PRECAUTIONS IN PLACE, SEIZURE PRECAUTIONS IN PLACE, CONTACT PRECAUTIONS IN PLACE, CALL LIGHT WITHIN REACH.
[2018-02-04] MEDS ORDERED: METOCLOPRAMIDE HCL 10 MG TABLET GT PRN (16:30)
[2018-02-04 16:47] VITALS: BP_SYST 149
[2018-02-04] MEDS ORDERED: EPOETIN ALFA 4,000 UNITS/ML VIAL SUBCUT ONE (17:00)
--- NOTE | 2018-02-04 18:38 | NUR ---
CLOSING NOTE PATIENT IS RESTING IN BED WITH EYES OPEN, PATIENT IS AROUSABLE TO LIGHT STIMULI, PATIENT IS TOLERATING TUBE FEEDING WELL, IVF INFUSING WELL WITH NO SIGNS OF INFILTRATION, BREATHING IS EVEN AND UNLABORED ON MECHANICAL VENTILATOR, NO ACUTE DISTRESS OR PAIN IS NOTED AT THIS TIME, ALL NEEDS WERE MET THROUGHOUT SHIFT, SAFETY PRECAUTIONS IN PLACE, SEIZURE PRECAUTIONS IN PLACE, CONTACT PRECAUTIONS IN PLACE, CALL LIGHT WITHIN REACH.
--- NOTE | 2018-02-04 19:08 | NUR ---
Initial Notes Received patien in bed awake with eyes open. No c/o pain and no s/s of any distress noted. Picc line note to MARIBEL, no infiltrate and with good blood return. Clostomy noted with 50cc of brown liwuid stool in the bag. F/C noted with cloudy and whitish residue in the bag. Patient on trach with setting as ordered. All extremities are weak, BR. Wound to sacral area noted with dressing intact. Will cont to monitor.
[2018-02-04] MEDS: PANTOPRAZOLE GRANULES PACKET 40 MG GT SCH (20:00)
--- NOTE | 2018-02-04 21:17 | NUR ---
Rounds Partial bed bath perform with patient. No c/o pain and no s/s of any distress noted. Will cont to monitor.
--- NOTE | 2018-02-04 23:08 | NUR ---
Rounds Partial bed bath rendered to patient with Q SEWER DIGGER. No s/s of any distress noted. Call light in reach in, will cont to monitor.
[2018-02-05 00:28] VITALS: BP_SYST 132
--- NOTE | 2018-02-05 01:08 | NUR ---
Rounds Patient is resting with eyes close at this time. No s/s of any distress noted. Call light in reach in, will cont to monitor.
[2018-02-05] MEDS: 0.45% NACL 1,000 ML IV SCH (01:30)
[2018-02-05] MEDS: IPRATROPIUM BROM 0.5 MG/2.5 ML VIAL.NEB (ATROVENT) INH SCH ×4 (02:19→19:06)
[2018-02-05] MEDS: ALBUTEROL SULFATE 0.083% 2.5 MG/3 ML VIAL.NEB INH SCH ×4 (02:19→19:06)
--- NOTE | 2018-02-05 03:08 | NUR ---
Rounds Patient is resting comfortably at this time. No s/s of any distress noted. Call light in reach in, will cont to monitor.
[2018-02-05] MEDS: FERROUS SULFATE 300 MG/5 ML UDC GT SCH ×3 (06:16→17:05)
--- NOTE | 2018-02-05 07:01 | NUR ---
End of shift notes Patient is awake resting in bed at this time. No c/o pain and no s/s of any distress at this time. Tolerating new gtube well, no residual no n/v. All needs met and anticipated by noc nurses. Call light in reach, will cont to monitor.
[2018-02-05 07:15] VITALS: BP_SYST 151
[2018-02-05 07:53] VITALS: BP_SYST 151
--- NOTE | 2018-02-05 08:00 | NUR ---
Opening Notes, Received patient in bed awake with eyes open. No s/s pain and no sob, no s/s of any distress noted. Picc line note to MARIBEL, no infiltrate and with good blood return. Colostomy noted with 20cc of brown liquid stool in the bag. F/C noted with cloudy and whitish residue in the bag. Patient on trach to vent SIMV setting as ordered. All extremities are weak, BR. Wound to sacral area noted with dressing intact. Will cont to monitor.
[2018-02-05] MEDS: LACTULOSE 20 GM/30 ML UDC GT SCH ×2 (09:00→21:00)
[2018-02-05] MEDS: BALSAM PERU/CASTOR OIL 60 GM OINT...G. TP SCH (09:00)
[2018-02-05] MEDS: NAPH,MB-DB/K PH,MBDB 250 MG TAB GT SCH ×2 (09:09→21:04)
[2018-02-05] MEDS: CALCIUM CARBONATE/VITAMIN D3 1 TAB TABLET GT SCH ×2 (09:09→21:04)
[2018-02-05] MEDS: CHOLECALCIFEROL (VITAMIN D3) 2,000 UNIT TABLET GT SCH (09:09)
[2018-02-05] MEDS: PANTOPRAZOLE GRANULES PACKET 40 MG GT SCH ×2 (09:09→21:05)
[2018-02-05] MEDS: LACTOBACILLUS RHAMNOSUS GG 1 CAP CAPSULE GT SCH ×2 (09:09→21:05)
[2018-02-05] MEDS: ASCORBIC ACID 500 MG TABLET GT SCH ×2 (09:09→21:05)
[2018-02-05] MEDS: POTASSIUM CHLORIDE 20 MEQ/PKT PACKET GT SCH ×2 (09:09→21:04)
[2018-02-05] MEDS: LevETIRAcetam 500 MG/5 ML UDC ORAL LIQUID GT SCH ×2 (09:10→21:05)
[2018-02-05] MEDS: MULTIVIT-MINERALS/FERROUS GLUC 15 ML UDC GT SCH ×2 (09:11→21:04)
[2018-02-05] MEDS: CEFEPIME 1 GM in D5W 50 ML IV SCH ×2 (09:12→21:06)
--- NOTE | 2018-02-05 10:00 | NUR ---
Pt in bed, resting, eye closed, safety precaution in place. call light in reach. will cont to monitor. no change in vent settings.
[2018-02-05 12:02] VITALS: BP_SYST 122
--- NOTE | 2018-02-05 13:23 | NUR ---
P.T. NOTES P.T. EVAL COMPLETED; D/C FROM P.T.; NURSING TO DO PROM UE/LE ONCE DAILY.
--- NOTE | 2018-02-05 15:57 | NUR ---
dr rowley here and seen pt , new orders given. no family at bedside.
[2018-02-05 16:02] VITALS: BP_SYST 130
--- NOTE | 2018-02-05 16:32 | NUR ---
PT'S DAUGHTER AT BEDSIDE. TRIED TO TEACH PT'S DTR (SHE SAID SHE IS THE ONE GOING TO TAKE CARE OF PT AT HOME) RE G-TUBE FEEDING AND TRACHE SUCTIONING. DTR STATED SHE ALREADY KNOW HOW TO TAKE CARE OF PT AT HOME. PT TURNED AND REPOSITIONED. WILL CONT TO MONITOR.
--- NOTE | 2018-02-05 18:28 | NUR ---
CLOSING NOTES, PT HAS BEEN STABLE, NO CHANGE IN VENT SETTINGS, NO RESIDUAL FROM G-TUBE FEEDING. CHANGE PRN. MANJARREZ LEAKING, TURNED AND REPOSITIONED [id number], PT'S DAUGHTER HERE TODAY AND SHE STATED THAT SHE ALREADY KNOW HOW TO DO SUCTIONING AND G-TUBE BOLUS FEEDING. WILL ENDORSE TO NIGHT RN.
--- NOTE | 2018-02-05 19:25 | NUR ---
Opening Notes Received patient in bed aaox1 to self only. On mechanical ventilation simv 8, tv500, fio2 30%, and peep +5. Tolerating mechanical ventilation. On gtube feeding at 40cc. MARIBEL picc line with clean, dressing intact. Colostomy noted with no redness at the seal and loose brown stool. Hernandez catheter draining by gravity yellow urine. On SCD's. Lung sounds diminished, and heart sounds wnl. on isolation precautions of the nares, sputum, and urine. No pain or respiratory distress at this time. Seizure and safety precautions in place. Will monitor for change of condition.
[2018-02-05 20:00] VITALS: BP_SYST 131
--- NOTE | 2018-02-05 21:26 | NUR ---
BLOOD GLUCOSE 135. NO COVERAGE NEEDED
--- NOTE | 2018-02-06 00:15 | NUR ---
Patient in bed resting. Repositioned and provide suctioning and oral care. No distress at this time. Bed alarm active and safety precautions in place.
[2018-02-06] MEDS: ALBUTEROL SULFATE 0.083% 2.5 MG/3 ML VIAL.NEB INH SCH ×4 (01:09→19:43)
[2018-02-06] MEDS: IPRATROPIUM BROM 0.5 MG/2.5 ML VIAL.NEB (ATROVENT) INH SCH ×4 (01:10→19:43)
[2018-02-06] MEDS: 0.45% NACL 1,000 ML IV SCH (02:36)
--- NOTE | 2018-02-06 02:50 | NUR ---
RT AT BEDSIDE REPLACING TRACH TUBING. PATIENT REPOSITIONED AND SUCTIONED.
--- NOTE | 2018-02-06 04:10 | NUR ---
No change in condition
[2018-02-06] MEDS: FERROUS SULFATE 300 MG/5 ML UDC GT SCH ×3 (06:35→17:06)
[2018-02-06 07:07] LABS: HEMATOCRIT 25.3 % (36-48); HEMOGLOBIN 8.2 g/dL (12.0-16.0); MEAN CORPUSCULAR HEMOGLOBIN 26 pg (27-31); MEAN CORPUSCULAR HGB CONC 33 % (32-36); MEAN CORPUSCULAR VOLUME 80 fL (79.0-98.0); PLATELET COUNT (AUTO) 373 K/uL (130-430); RED BLOOD CELL COUNT(AUTO) 3.16 MIL/uL (4.2-6.2); RED CELL DISTRIBUTION WIDTH 22.5 % (9.0-15.0); WHITE BLOOD COUNT (AUTO) 14.1 K/uL (4.8-10.8)
--- NOTE | 2018-02-06 07:31 | NUR ---
Closing notes Patient in bed resting. Zero residual from GT. IV fluids infusing with no infiltration or redness. Tolerated all medications with no adverse reaction. Hernandez draining by gravity with yellow urine. No pain or respiratory distress noted. All needs have been met and will endorse care to oncoming nurse.
[2018-02-06 07:37] LABS: CALCIUM 9.2 mg/dL (8.4-11.0); CREATININE 0.81 mg/dL (0.55-1.30)
[2018-02-06 07:41] LABS: PHOSPHORUS 3.5 mg/dL (2.7-4.5)
--- NOTE | 2018-02-06 07:44 | NUR ---
OPENING NOTE PATIENT RECEIVED RESTING IN BED WITH EYES OPEN, PATIENT IS AROUSABLE TO LIGHT STIMULI, BREATHING IS EVEN ON MECHANICAL VENTILATOR, NO ACUTE DISTRESS OR PAIN IS NOTED, IVF INFUSING WELL, WILL CONTINUE TO MONITOR, SAFETY PRECAUTIONS IN PLACE, CONTACT PRECAUTIONS IN PLACE, SEIZURE PRECAUTIONS IN PLACE, CALL LIGHT WITHIN REACH.
[2018-02-06 08:00] VITALS: BP_SYST 146
[2018-02-06] MEDS: POTASSIUM CHLORIDE 20 MEQ/PKT PACKET GT SCH ×2 (08:44→20:55)
[2018-02-06] MEDS: LACTULOSE 20 GM/30 ML UDC GT SCH ×2 (08:44→20:56)
[2018-02-06] MEDS: LevETIRAcetam 500 MG/5 ML UDC ORAL LIQUID GT SCH ×2 (08:44→20:56)
[2018-02-06] MEDS: MULTIVIT-MINERALS/FERROUS GLUC 15 ML UDC GT SCH ×2 (08:44→20:56)
[2018-02-06] MEDS: LACTOBACILLUS RHAMNOSUS GG 1 CAP CAPSULE GT SCH ×2 (08:45→20:56)
[2018-02-06] MEDS: PANTOPRAZOLE GRANULES PACKET 40 MG GT SCH ×2 (08:45→20:56)
[2018-02-06] MEDS: CALCIUM CARBONATE/VITAMIN D3 1 TAB TABLET GT SCH ×2 (08:45→20:56)
[2018-02-06] MEDS: CEFEPIME 1 GM in D5W 50 ML IV SCH ×2 (08:45→20:54)
[2018-02-06] MEDS: ASCORBIC ACID 500 MG TABLET GT SCH ×2 (08:45→20:55)
[2018-02-06] MEDS: CHOLECALCIFEROL (VITAMIN D3) 2,000 UNIT TABLET GT SCH (08:45)
[2018-02-06] MEDS: NAPH,MB-DB/K PH,MBDB 250 MG TAB GT SCH ×2 (08:48→20:56)
[2018-02-06] MEDS: BALSAM PERU/CASTOR OIL 60 GM OINT...G. TP SCH (08:52)
--- NOTE | 2018-02-06 09:57 | NUR ---
NOTES PATIENT IS RESTING IN BED WITH EYES OPEN, NO ACUTE DISTRESS OR PAIN IS NOTED, BREATHING IS EVEN ON MECHANICAL VENTILATOR, PATIENT TOLERATING TUBE FEEDING WELL, WILL CONTINUE TO MONITOR, SAFETY PRECAUTIONS IN PLACE, CONTACT PRECAUTIONS IN PLACE, SEIZURE PRECAUTIONS IN PLACE, CALL LIGHT WITHIN REACH.
--- NOTE | 2018-02-06 10:43 | NUR ---
Discharge Planning: ALISON followed up with Marisa at [facility] ([phone]); Marisa stated bedside assessment on February 03, 2018. Bella is trying to contacted to do assessment on home and st up training. No return call has been made from family. [facility] will inform CM. Addendum: 02/06/18 at 1100 by Drea LU ALISON spoke to Sammy ([phone] cell) and Maci on speaker. They stated the home assessment was done on Tuesday, February 04, 2018. [facility] informed them Marisa at [facility] ([phone]) was trying contact them to set up training. [facility] gave Vanesa contact number so they could call Marisa at [facility].
[2018-02-06 10:50] VITALS: BP_SYST 143
[2018-02-06 11:34] LABS: BASOPHILS % (MANUAL) 0 % (0-2); EOSINOPHILS % (MANUAL) 1 % (0-7); LYMPHOCYTES % (MANUAL) 13 % (20-46); MONOCYTES % (MANUAL) 7 % (0-11)
--- NOTE | 2018-02-06 11:50 | NUR ---
NOTES PATIENT IS RESTING IN BED WITH EYES OPEN, NO SIGNS OF ACUTE DISTRESS OR PAIN IS NOTED AT THIS TIME, BREATHING IS EVEN ON MECHANICAL VENTILATOR WITH OXYGEN SATURATION OF 93%, WILL CONTINUE TO MONITOR, IVF INFUSING WELL WITH NO SIGNS OF INFILTRATION, PATIENT TOLERATING TUBE FEEDING WELL, SAFETY PRECAUTIONS IN PLACE, CONTACT PRECAUTIONS IN PLACE, SEIZURE PRECAUTIONS IN PLACE, CALL LIGHT WITHIN REACH.
--- NOTE | 2018-02-06 13:48 | NUR ---
NOTES PATIENT IS RESTING IN BED, BREATHING IS EVEN ON MECHANICAL VENTILATOR, NO SIGNS OF ACUTE DISTRESS OR PAIN IS NOTED AT THIS TIME, IVF INFUSING WELL WITH NO SIGNS OF INFILTRATION, PATIENT TOLERATING TUBE FEEDING WELL, WILL CONTINUE TO MONITOR, SAFETY PRECAUTIONS IN PLACE, CALL LIGHT WITHIN REACH.
[2018-02-06 15:40] VITALS: BP_SYST 132
--- NOTE | 2018-02-06 15:57 | NUR ---
NOTES PATIENT IS RESTING IN BED WITH EYES OPEN, PATIENT AROUSABLE TO LIGHT STIMULI, BREATHING IS EVEN ON MECHANICAL VENTILATOR, IVF INFUSING WELL, PATIENT TOLERATING TUBE FEEDING WELL, WILL CONTINUE TO MONITOR, SAFETY PRECAUTIONS IN PLACE, CALL LIGHT WITHIN REACH.
--- NOTE | 2018-02-06 18:00 | NUR ---
WOUND CARE PERFORMED CLEANSED WITH NS, PAT DRY, APPLIED 2 TENDERWET, VENELEX APPLIED TO WOUND BED, MOISTURE BARRIER CREAM TO PERIWOUND, COVERED WITH OPTIFOAM DRESSING.
--- NOTE | 2018-02-06 18:33 | NUR ---
CLOSING NOTE PATIENT IS RESTING IN BED WITH EYES OPEN, PATIENT IS AROUSABLE TO LIGHT STIMULI, BREATHING IS EVEN ON MECHANICAL VENTILATOR WITH OXYGEN SATURATION OF 100%, NO SIGNS OF ACUTE DISTRESS OR PAIN IS NOTED, IVF INFUSING WELL, PATIENT TOLERATING TUBE FEEDING WELL, ALL NEEDS WERE MET THROUGHOUT SHIFT, WILL ENDORSE REPORT TO ONCOMING NURSE, SAFETY PRECAUTIONS IN PLACE, CONTACT PRECAUTIONS IN PLACE, SEIZURE PRECAUTIONS IN PLACE, CALL LIGHT WITHIN REACH.
--- NOTE | 2018-02-06 19:15 | NUR ---
Opening Notes Received patient in bed aaox1 to self only. Patient appears clean and well kept. No appearance of pain or respiratory distress. On mechanical ventilation simv 8, tv500, fio2 30%, and peep +5. Tolerating mechanical ventilation. On gtube feeding at 40cc. MARIBEL picc line with clean, dressing intact. Colostomy noted with no redness at the seal and loose brown stool. Hernandez catheter draining by gravity yellow urine. On SCD's. Lung sounds diminished, and heart sounds wnl. on isolation precautions of the nares, sputum, and urine. Bed alarm is active. Seizure and safety precautions in place. Will monitor for change of condition.
[2018-02-06 20:00] VITALS: BP_SYST 128
--- NOTE | 2018-02-06 20:59 | NUR ---
BLOOD GLUCOSE 135 NO COVERAGE NEEDED
[2018-02-07] VITALS (7 sets, daily range): BP systolic 120–146
--- NOTE | 2018-02-07 00:10 | NUR ---
Patient resting comfortably. patient given h2o flush and repositioned. NO pain or sob. tolerating mechanical ventilation. Will cont to monitor. Safety precautions in place.
[2018-02-07] MEDS: IPRATROPIUM BROM 0.5 MG/2.5 ML VIAL.NEB (ATROVENT) INH SCH ×3 (00:51→19:37)
[2018-02-07] MEDS: ALBUTEROL SULFATE 0.083% 2.5 MG/3 ML VIAL.NEB INH SCH ×3 (00:51→19:37)
[2018-02-07] MEDS: 0.45% NACL 1,000 ML IV SCH ×2 (01:30→14:31)
--- NOTE | 2018-02-07 02:15 | NUR ---
Patient repositioned and suctioned. No pain or respiratory distress at this time.
--- NOTE | 2018-02-07 04:40 | NUR ---
patient cleaned with new linen. Provided suctioning and oral care. Patient repositioned.
[2018-02-07] MEDS: FERROUS SULFATE 300 MG/5 ML UDC GT SCH ×3 (06:14→17:37)
--- NOTE | 2018-02-07 06:49 | NUR ---
Closing notes Patient in bed resting. On mechanical ventilation with no respiratory distress. No pain noted at this time. Safety precautions in place. Tolerated 0700 medication with no adverse effects. All needs have been met and will endorse care to oncoming nurse.
--- NOTE | 2018-02-07 08:05 | NUR ---
OPENING NOTE PATIENT RECEIVED RESTING IN BED WITH EYES OPEN, PATIENT IS AROUSABLE TO LIGHT STIMULI, BREATHING IS EVEN BY MECHANICAL VENTILATOR WITH OXYGEN SATURATION OF 93%, NO SIGNS OF ACUTE DISTRESS OR PAIN IS NOTED, IVF INFUSING WELL WITH NO SIGNS OF INFILTRATION, WILL CONTINUE TO MONITOR, SAFETY PRECAUTIONS IN PLACE, CONTACT PRECAUTIONS IN PLACE, SEIZURE PRECAUTIONS IN PLACE, CALL LIGHT WITHIN REACH.
[2018-02-07] MEDS: PANTOPRAZOLE GRANULES PACKET 40 MG GT SCH ×2 (09:30→21:46)
[2018-02-07] MEDS: CEFEPIME 1 GM in D5W 50 ML IV SCH ×2 (09:30→21:45)
[2018-02-07] MEDS: LACTULOSE 20 GM/30 ML UDC GT SCH ×2 (09:30→21:46)
[2018-02-07] MEDS: NAPH,MB-DB/K PH,MBDB 250 MG TAB GT SCH ×2 (09:31→21:46)
[2018-02-07] MEDS: LACTOBACILLUS RHAMNOSUS GG 1 CAP CAPSULE GT SCH ×2 (09:31→22:03)
[2018-02-07] MEDS: ASCORBIC ACID 500 MG TABLET GT SCH ×2 (09:31→21:46)
[2018-02-07] MEDS: CHOLECALCIFEROL (VITAMIN D3) 2,000 UNIT TABLET GT SCH (09:31)
[2018-02-07] MEDS: CALCIUM CARBONATE/VITAMIN D3 1 TAB TABLET GT SCH ×2 (09:31→21:46)
[2018-02-07] MEDS: POTASSIUM CHLORIDE 20 MEQ/PKT PACKET GT SCH ×2 (09:31→21:46)
[2018-02-07] MEDS: MULTIVIT-MINERALS/FERROUS GLUC 15 ML UDC GT SCH ×2 (09:31→22:02)
[2018-02-07] MEDS: BALSAM PERU/CASTOR OIL 60 GM OINT...G. TP SCH (09:35)
[2018-02-07] MEDS: LevETIRAcetam 500 MG/5 ML UDC ORAL LIQUID GT SCH ×2 (09:42→21:48)
--- NOTE | 2018-02-07 10:35 | NUR ---
NOTES PATIENT IS RESTING IN BED WITH EYES OPEN, NO PAIN OR ACUTE DISTRESS NOTED, BREATHING IS EVEN ON MECHANICAL VENTILATOR, IVF INFUSING WELL, WILL CONTINUE TO MONITOR, SAFETY PRECAUTIONS IN PLACE, SEIZURE PRECAUTIONS IN PLACE, CONTACT PRECAUTIONS IN PLACE, CALL LIGHT WITHIN REACH.
[2018-02-07] MEDS ORDERED: FLUCONAZOLE 100 MG TABLET (DIFLUCAN) PO SCH (12:00)
--- NOTE | 2018-02-07 12:40 | NUR ---
NOTES PATIENT RESTING IN BED WITH EYES OPEN, PATIENT IS AROUSABLE TO LIGHT STIMULI, BREATHING IS EVEN ON MECHANICAL VENTILATOR, NO ACUTE DISTRESS OR PAIN IS NOTED, WILL CONTINUE TO MONITOR, SAFETY PRECAUTIONS IN PLACE, CONTACT PRECAUTIONS IN PLACE, CALL LIGHT WITHIN REACH.
--- NOTE | 2018-02-07 14:50 | NUR ---
NOTES PATIENT IS RESTING IN BED WITH EYES OPEN, PATIENT IS AROUSABLE TO LIGHT STIMULI, PATIENT TOLERATING TUBE FEEDING WELL, BREATHING IS EVEN ON MECHANICAL VENTILATOR, IVF INFUSING WELL WITH NO SIGNS OF INFILTRATION, WILL CONTINUE TO MONITOR, SAFETY PRECAUTIONS IN PLACE, CONTACT PRECAUTIONS IN PLACE, SEIZURE PRECAUTIONS IN PLACE, CALL LIGHT WITHIN REACH.
--- NOTE | 2018-02-07 16:45 | NUR ---
NOTES COLOSTOMY BAG CHANGED, PATIENT CLEANED AND CHANGED LINEN AND GOWN, PATIENT REPOSITIONED FOR COMFORT, PATIENT TOLERATED WELL, WILL CONTINUE TO MONITOR, BREATHING IS EVEN BY MECHANICAL VENTILATOR, IVF INFUSING WELL, SAFETY PRECAUTIONS IN PLACE, CONTACT PRECAUTIONS IN PLACE, SEIZURE PRECAUTIONS IN PLACE, CALL LIGHT WITHIN REACH.
--- NOTE | 2018-02-07 18:52 | NUR ---
CLOSING NOTE PATIENT RESTING IN BED WITH EYES OPEN, PATIENT IS AROUSABLE TO LIGHT STIMULI, BREATHING IS EVEN ON MECHANICAL VENTILATOR, IVF INFUSING WELL, MANJARREZ CATHETER DRAINING BY GRAVITY, PATIENT TOLERATING TUBE FEEDING WELL WITH NO SIGNS OF NAUSEA OR VOMITING, NO SIGNS OF PAIN OR ACUTE DISTRESS IS NOTED AT THIS TIME, WILL ENDORSE REPORT TO ONCOMING NURSE, ALL NEEDS WERE MET THROUGHOUT SHIFT, SAFETY PRECAUTIONS IN PLACE, SEIZURE PRECAUTIONS IN PLACE, CONTACT PRECAUTIONS IN PLACE, CALL LIGHT WITHIN REACH.
--- NOTE | 2018-02-07 19:10 | NUR ---
initial notes: pt is on bed, family at bedside talking to her. pt is awake, alert. non verbal. pt has tracheotomy connected to vent is setting og ct=389, fio2=30, peep=5, pressure support of 10, rate =8 at simv mode. pt has ortiz draining to below body level to cloudy urine. pt has picc line to right upper arm- dressing is cdi. according to report pt has wound to her coccyx area needs dressing change. scd bilateral leg. needs attended. call l ight in reach. will monitor.
--- NOTE | 2018-02-07 20:10 | NUR ---
assessment pt, vital sign are with in normal limit. reposition for comfort. mouth care done. pt tolerate well. needs attended. shorty light in reach. low bed position. will monitor. Addendum: 02/07/18 at 2340 by Ricardo Hui RN pt has gtube- check for position and 0c residual.
--- NOTE | 2018-02-07 22:00 | NUR ---
notes: pt is resting, eyes closes. no distress on vent. reposition. will monitor.
[2018-02-08] VITALS: BP_SYST 118
--- NOTE | 2018-02-08 | NUR ---
notes: dressing change done at the coccyx area- following wound care nurse recommendation. pt is given partial bed bath. reposition. mouth care done. needs attended. call light in reach. side rails up. low bed position. will monitor.
[2018-02-08] MEDS: ALBUTEROL SULFATE 0.083% 2.5 MG/3 ML VIAL.NEB INH SCH ×4 (01:55→19:42)
[2018-02-08] MEDS: IPRATROPIUM BROM 0.5 MG/2.5 ML VIAL.NEB (ATROVENT) INH SCH ×4 (01:56→19:42)
--- NOTE | 2018-02-08 02:00 | NUR ---
notes: pt is resting on vent. tolerating well. no acute distress. reposition. call light in reach. safety on. will continue to monitor.
--- NOTE | 2018-02-08 04:00 | NUR ---
notes: pt is sleeping, stable. no sign of pain and discomfort. mouth care done. reposition. pt tolerate well. call light in reach. will continue to monitor.
--- NOTE | 2018-02-08 06:00 | NUR ---
notes: sleeping, comfortable on vent. stable. needs attended. call light in reach will monitor.
[2018-02-08] MEDS: FERROUS SULFATE 300 MG/5 ML UDC GT SCH ×3 (06:14→16:57)
--- NOTE | 2018-02-08 07:15 | NUR ---
OPENING NOTE: MORNING REPORT WAS TAKEN AT BEDSIDE FROM NIGHT NURSE. PATIENT WAS ASLEEP. PATIENT NOT COMPLAINING OF ANY DISTRESS. PATIENT ON VENT. SETTINGS ARE TV 500, FIO2 30%, PEEP5, SIMV8. SCD'S ARE ON. BED ALARM IS ON AND CALL LIGHT IS IN REACH. BED IN LOWEST POSITION WITH SIDE RAILS UP. WILL CONTINUE TO MONITOR.
--- NOTE | 2018-02-08 07:32 | NUR ---
CLOSING: PT IS RESTING. STABLE. NEEDS ATTENDED THE WHOLE SHIFT BEDSIDE REPORT GIVEN TO AM RN.
[2018-02-08 08:45] VITALS: BP_SYST 117
[2018-02-08] MEDS: CHOLECALCIFEROL (VITAMIN D3) 2,000 UNIT TABLET GT SCH (09:06)
[2018-02-08] MEDS: NAPH,MB-DB/K PH,MBDB 250 MG TAB GT SCH ×2 (09:06→21:26)
[2018-02-08] MEDS: CALCIUM CARBONATE/VITAMIN D3 1 TAB TABLET GT SCH ×2 (09:06→21:26)
[2018-02-08] MEDS: ASCORBIC ACID 500 MG TABLET GT SCH ×2 (09:06→21:26)
[2018-02-08] MEDS: CEFEPIME 1 GM in D5W 50 ML IV SCH ×2 (09:06→21:25)
[2018-02-08] MEDS: POTASSIUM CHLORIDE 20 MEQ/PKT PACKET GT SCH ×2 (09:06→21:25)
[2018-02-08] MEDS: LACTOBACILLUS RHAMNOSUS GG 1 CAP CAPSULE GT SCH ×2 (09:07→21:26)
[2018-02-08] MEDS: LACTULOSE 20 GM/30 ML UDC GT SCH ×2 (09:07→21:25)
[2018-02-08] MEDS: PANTOPRAZOLE GRANULES PACKET 40 MG GT SCH ×2 (09:07→21:26)
[2018-02-08] MEDS: FLUCONAZOLE 100 MG TABLET (DIFLUCAN) GT SCH (09:07)
[2018-02-08] MEDS: MULTIVIT-MINERALS/FERROUS GLUC 15 ML UDC GT SCH ×2 (09:07→21:25)
[2018-02-08] MEDS: LevETIRAcetam 500 MG/5 ML UDC ORAL LIQUID GT SCH ×2 (09:08→21:27)
--- NOTE | 2018-02-08 09:10 | NUR ---
NOTE: PATIENT WAS ASLEEP IN BED WITH NO SIGNS OF DISTRESS. GAVE PATIENT SCHEDULED MEDICATIONS. PATIENT HAS MANJARREZ HANGING TO GRAVITY. FEEDING IS INFUSING. PATIENT WAS TURNED AND REPOSITIONED. ORAL CARE WAS DONE. SCD'S ARE ON. WILL CONTINUE TO MONITOR.
--- NOTE | 2018-02-08 12:02 | NUR ---
NOTE: PATIENT AWAKE IN BED WITH NO SIGNS OF DISTRESS. CHECKED PATIENT'S BLOOD SUGAR AND WAS 136. NO INSULIN NEEDED TO COVER. GAVE PATIENT SCHEDULED MEDICATION. ORAL CARE WAS DONE AGAIN. PATIENT WAS TURNED AND REPOSITIONED FOR COMFORT. WILL CONTINUE TO MONITOR.
--- NOTE | 2018-02-08 13:30 | NUR ---
DC Planning: late entry: Notified about pt's home assessment by [facility] that the home is not suitable for the pt. at this time. (see Drea DCP notes) Dr. Valentine requests Sub Acute eval. No dcp order received.
--- NOTE | 2018-02-08 14:35 | NUR ---
NOTE: PATIENT WAS AWAKE LAYING IN BED WITH NO SIGNS OF DISTRESS. PATIENT WAS TURNED AND REPOSITIONED. PATIENT'S MANJARREZ WAS LEAKING. INFLATED THE BALLOON MORE. WILL MONITOR IT. COLOSTOMY BAG WAS EMPTIED. DID ORAL CARE AGAIN ON PATIENT. GAVE PATIENT ONE SUPPLEMENT FROM FEEDING. WILL CONTINUE TO MONITOR.
--- NOTE | 2018-02-08 14:43 | NUR ---
Discharge Planning: SARWATP received message from Jerri from [facility] (f [phone] p [phone]), stating she is not able to provide sevices for patient at home. Jerri stated there was a old matter in a suction container, 5 large dogs that roam free through the house, someone was sleeping in the patients hospital bed. Patient has a large wound, that needs proper care. SARWATP made CM aware.
--- NOTE | 2018-02-08 15:00 | NUR ---
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 on GT feeding, DM type 2, HTN, HLD, atherosclerosis, neurogenic bladder, diverting colostomy, sacral PU stage 3, severe protein malnutrition, chronic pulmonary scarring per MD notes 02/08/18 Attending MD notes: acute hypoxic respiratory failure weaning attempts several times; tracheostomy on 01/30/18; sepsis and septic shock; aspiration pneumonia; acute metabolic encephalopathy; NINOSKA/ATN + hypernatremia + hypokalemia; dehydation, anemia/iron deficiency and anemia of chronic illness; seizure disorder; 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 Per RN, pt has been tolerating TF well, less than 5 ml residuals today. She stated she would provide Marques and Prosource as per MD order. Per EMR, TF Intakes: 480 ml 02/08/18. Residuals: 5 ml 02/08/18. Abd is soft and non-distended w/ active bowel sounds. I/O: 840/650 (+190 ml) per 12 hours. Current TF regimen is adequate/appropriate. Current Diet Order/Nutrition Support Glucerna at 40 ml/hr, Marques BID, Prosource TID Free Water Flush: 100 q 4 via GT x8 days Patient/Significant Other Unable To Verbalize Education Provided Not Indicated Pertinent Medications neutraphos, reglan, zofran, VIT D-3, protonix, culturelle, centrum, zinc sulfate, lactulose, os-shorty, VIT C, ferrous sulfate, SSI, tums Pertinent Labs 02/08/18: POC BG 112 H 02/06/18 BG 116 H, BUN 16 WNL (improved), Mg 1.8 WBL (improved), H/H 8.2 L/25.3 L, WBC 14.1 H 02/04/18: ALB 1.4 L Height (Feet 5 feet Height (Inches) 3.00 inches Weight (Pounds) 152 pounds (01/17/18) BED SCALE WT: 186.5 lb (01/23) ---may be inaccurate d/t blankets/pillows Weight (Calculated Kilograms) 68.361804 kilograms Patient Weight 68.946 kg Body Mass Index 26.92 kg/m2 %IBW 133 [place]/Adjusted Body Weight IBW: 115 lb, 52 kg. Adj IBW (obesity): 124 lb, 56 kg Recent Weight Change No Weight Status Overweight Last BM 02/07/18 x2 Food Allergies No Usual Diet At Home Unable to assess per EMR Skin Integrity Comment: Jeff scale: 11; per Kitchen Aide note 02/02/18: 1. Sacral-Coccygeal area: Stage IV Pressure ulcer, present on admission. Bilateral generalized non-pitting edema; BUE w/ 1+ pitting edema Estimated Energy Expenditure (kcals/day) 0162-5191 kcal/day (30-35 kcal/kg Adj IBW for sepsis, wound healing) Estimated Protein Required (g/day) 67-112 gm/day (1.2-2 gm/kg Adj IBW for sepsis, wound healing) Estimated Fluid Required (l/day) Per MD (ARF) Problem/Etiology/Signs/Symptoms Inadequate enteral nutrition related to metabolic demands as evidenced by current TF regimen meets 79% of estimated caloric needs and 94% of estimated protein needs. *improving Expected Outcomes/Goals - Monitor tolerance to EN support w/ goal of pt meeting at least 85% of estimated nutritional needs, labs trending WNL, normal GI function, and skin integrity/wt maintenance Dietitian Recommendations * Recommend Glucerna 1.5 at 40 ml/hr, Marques BID, Prosource TID, Free Water Flush: 100 ml Q4h via GT Provides: 1796 kcal/day, 129 gm protein/day, and 1329 ml free water/day Meets: 107% of lower end of estimated caloric needs and 115% of upper end of estimated protein needs Follow Up High Risk: F/U in 2-3 days
--- NOTE | 2018-02-08 15:05 | NUR ---
Dietitian Recommendations * Recommend Glucerna 1.5 at 40 ml/hr, Marques BID, Prosource TID, Free Water Flush: 100 ml Q4h via GT Provides: 1796 kcal/day, 129 gm protein/day, and 1329 ml free water/day Meets: 107% of lower end of estimated caloric needs and 115% of upper end of estimated protein needs LP, RD Please refer to Nutrition F/U for details.
[2018-02-08 16:55] VITALS: BP_SYST 129
--- NOTE | 2018-02-08 16:58 | NUR ---
NOTE: PATIENT LAYING IN BED WITH NO SIGNS OF DISTRESS. CHECKED PATIENT'S BLOOD SUGAR AND WAS 131. NO INSULIN WAS NEED TO COVER. GAVE PATIENT SCHEDULED MEDICATION. PATIENT WAS TURNED AND REPOSITIONED FOR COMFORT. WILL CONTINUE TO MONITOR.
--- NOTE | 2018-02-08 18:10 | NUR ---
CLOSING NOTE: PATIENT IS AWAKE LAYING IN BED WITH NO SIGNS OF DISTRESS. VENT SETTINGS HAVE NOT CHANGED THROUGH OUT SHIFT. PATIENT HAS FLUIDS INFUSING. FEEDING IS INFUSING. MANJARREZ IS HANGING TO GRAVITY. MANJARREZ DOESNT SEEM TO BE LEAKING ANYMORE. PATIENT WAS TURNED AND REPOSITIONED. SCD'S ARE ON. BED IS IN LOWEST POSITION WITH CALL LIGHT IN REACH. PADDED SIDE RAILS ARE UP AND BED ALARM IS ON. WILL CONTINUE TO MONITOR AND GIVE REPORT TO MANAGER HOME NURSE.
--- NOTE | 2018-02-08 19:36 | NUR ---
ENDORSED WOUND CARE PICTURES: LET NURSE KNOW WAS SUPPOSE TO DO IT WITH WOUND CARE NURSE BUT THEY RAN OUT OF TIME AND DIDNT HAVE TARIFF COMPILING CLERK TO HELP WITH IT. NIGHT NURSE SAID THEY WOULD TAKE PICTURES AND DO WOUND CARE.
--- NOTE | 2018-02-08 19:49 | NUR ---
OPENING NOTES Pt is awake, non-verbal and lying in bed. Pt on trach with mechanical vent setting as follows: TV:500, FiO2:30, PEEP:5. Pt on PICC with IVF 0.45NS at 30ml/hr and infusing well. Pt on G-Tube feeding of Glucerna 1.2 at 40ml/hr. Pt on ortiz catheter with yellow urine noted on bag. No signs of acute distress noted. Aspiration precautions and safety precautions in place with 3 side rails up, bed alarm on and at its lowest level, and call light with pt. Will continue to monitor.
[2018-02-08 21:22] VITALS: BP_SYST 124
[2018-02-08] MEDS: INSULIN REGULAR, HUMAN 100 UNITS/ML, 10 ML VIAL (novoLIN R) SUBCUT PRN (21:31)
--- NOTE | 2018-02-08 22:10 | NUR ---
ROUNDS Pt is awake with eyes open while lying in bed. No signs of acute distress noted and FLACC scale of 0/10. Safety, aspiration and seizure precautions in place. Call light with pt. Will continue to monitor.
[2018-02-08] MEDS: 0.45% NACL 1,000 ML IV SCH (23:10)
[2018-02-09] MEDS: IPRATROPIUM BROM 0.5 MG/2.5 ML VIAL.NEB (ATROVENT) INH SCH ×2 (01:11→20:07)
[2018-02-09] MEDS: ALBUTEROL SULFATE 0.083% 2.5 MG/3 ML VIAL.NEB INH SCH ×2 (01:11→20:07)
--- NOTE | 2018-02-09 01:15 | NUR ---
ROUNDS Pt is awake with eyes open while lying in bed. Oral care rendered and pt tolerated well. No signs of acute distress noted and FLACC scale of 0/10. Safety, aspiration and seizure precautions in place. Call light with pt. Will continue to monitor.
[2018-02-09 01:17] VITALS: BP_SYST 117
--- NOTE | 2018-02-09 03:55 | NUR ---
RESTING Pt is resting in bed with both eyes closed. With visible chest rise and fall with non-labored breathing noted. No signs of acute distress or SOB noted. FLACC scale of 0/10. Safety, aspiration and seizure precautions in place. Will continue to monitor.
--- NOTE | 2018-02-09 05:15 | NUR ---
WOUND CARE Stopped Tube feeding and assisted BUSINESS INTERN with bed bath to pt. Maintained on head elevated on 40 degree angle. Pictures taken on sacral wound. Cleaned pt's wound with normal saline, applied venelex cream then hydrogel and applied tenderwet and covered in sacral foam. Repositioned pt and suctioning done as needed. Checked for residual and is below 5ml, assessed for bowel sounds and is active upon auscultation. Continued with tube feeding. No signs of acute distress noted. Safety and aspiration precautions maintained. Will continue to monitor.
[2018-02-09] MEDS: BALSAM PERU/CASTOR OIL 60 GM OINT...G. TP SCH ×2 (05:24→17:36)
[2018-02-09] MEDS: FERROUS SULFATE 300 MG/5 ML UDC GT SCH ×3 (06:30→17:36)
[2018-02-09] MEDS: INSULIN REGULAR, HUMAN 100 UNITS/ML, 10 ML VIAL (novoLIN R) SUBCUT PRN ×2 (06:33→22:12)
[2018-02-09 06:53] LABS: CALCIUM 9.4 mg/dL (8.4-11.0); CREATININE 0.76 mg/dL (0.55-1.30); POTASSIUM 4.4 mmol/L (3.5-5.1)
--- NOTE | 2018-02-09 07:00 | NUR ---
CLOSING NOTES Pt is resting in bed with both eyes. With visible chest rise and fall noted. No signs of acute distress. All needs attended throughout the shift. Safety, aspiration and seizure precautions in place. Will endorse to day shift nurse.
--- NOTE | 2018-02-09 07:42 | NUR ---
OPENING NOTE: MORNING REPORT WAS TAKEN FROM CHOCOLATE FINISHER NURSE. PATIENT WAS ASLEEP WITH NO SIGNS OF DISTRESS AT 0715. PATIENT JUST THREW UP WITH RESPIRATORY. STOPPED FEEDING AND SUCTION. PATIENT HAD RESIDUAL LESS THAN 5ML. PATIENT WAS CLEANED AND REPOSITIONED. PATIENT AWAKE AND SUCTIONED BY RT. PATIENT HAD CLEAR SECRETIONS. MANJARREZ IS STILL LEAKING. WILL LET DR KNOW. WILL CONTINUE TO MONITOR PATIENT.
[2018-02-09 08:00] VITALS: BP_SYST 99
[2018-02-09 08:17] LABS: BASOPHILS % (AUTO) 0.1 % (0.0-2.0); EOSINOPHILS # (AUTO) 0.2 K/uL (0.0-0.4); EOSINOPHILS % (AUTO) 1.5 % (0.0-4.0); HEMATOCRIT 27.1 % (36-48); HEMOGLOBIN 8.7 g/dL (12.0-16.0); LYMPHOCYTES # (AUTO) 1.2 K/uL (1.0-5.5); LYMPHOCYTES % (AUTO) 8.4 % (20.5-51.5); MEAN CORPUSCULAR HEMOGLOBIN 25 pg (27-31); MEAN CORPUSCULAR HGB CONC 32 % (32-36); MEAN CORPUSCULAR VOLUME 78 fL (79.0-98.0); MONOCYTES % (AUTO) 6.5 % (1.7-9.3); NEUTROPHILS # (AUTO) 12.4 K/uL (1.8-7.7); NEUTROPHILS % (AUTO) 83.5 % (40.0-70.0); PLATELET COUNT (AUTO) 368 K/uL (130-430); RED BLOOD CELL COUNT(AUTO) 3.48 MIL/uL (4.2-6.2); RED CELL DISTRIBUTION WIDTH 21.9 % (9.0-15.0); WHITE BLOOD COUNT (AUTO) 14.8 K/uL (4.8-10.8)
[2018-02-09] MEDS: CEFEPIME 1 GM in D5W 50 ML IV SCH ×2 (09:58→22:06)
[2018-02-09] MEDS: LACTOBACILLUS RHAMNOSUS GG 1 CAP CAPSULE GT SCH ×2 (09:59→22:05)
[2018-02-09] MEDS: LACTULOSE 20 GM/30 ML UDC GT SCH ×2 (09:59→22:06)
[2018-02-09] MEDS: PANTOPRAZOLE GRANULES PACKET 40 MG GT SCH ×2 (09:59→22:05)
[2018-02-09] MEDS: NAPH,MB-DB/K PH,MBDB 250 MG TAB GT SCH ×2 (09:59→22:05)
[2018-02-09] MEDS: POTASSIUM CHLORIDE 20 MEQ/PKT PACKET GT SCH ×2 (09:59→22:06)
[2018-02-09] MEDS: CHOLECALCIFEROL (VITAMIN D3) 2,000 UNIT TABLET GT SCH (10:00)
[2018-02-09] MEDS: FLUCONAZOLE 100 MG TABLET (DIFLUCAN) GT SCH (10:00)
[2018-02-09] MEDS: ASCORBIC ACID 500 MG TABLET GT SCH ×2 (10:00→22:05)
[2018-02-09] MEDS: CALCIUM CARBONATE/VITAMIN D3 1 TAB TABLET GT SCH ×2 (10:00→22:05)
[2018-02-09] MEDS: MULTIVIT-MINERALS/FERROUS GLUC 15 ML UDC GT SCH ×2 (10:01→22:05)
[2018-02-09] MEDS: LevETIRAcetam 500 MG/5 ML UDC ORAL LIQUID GT SCH ×2 (10:02→22:05)
--- NOTE | 2018-02-09 10:26 | NUR ---
NOTE: GAVE PATIENT MORNING MEDICATION. PATIENT NOT VOMITING SINCE EARLIER. PATIENT HS NO RESIDUAL. FLUIDS ARE INFUSING. SCD'S ARE ON. PATIENT WAS TURNED AND REPOSITIONED. ORAL CARE WAS DONE. PATIENT AWAKE WITH NO SIGNS OF DISTRESS. WILL CONTINUE TO MONITOR.
--- NOTE | 2018-02-09 11:35 | NUR ---
NOTE: PATIENT WAS CLEANED AND REPOSITIONED. CHECKED PATIENT'S SUGAR AND WAS 139. NO INSULIN NEEDED TO COVER. PATIENT AWAKE WITH NO SIGNS OF DISTRESS. WILL CONTINUE TO MONITOR.
--- NOTE | 2018-02-09 11:40 | NUR ---
discharge Planning: DCP faxed pt referral to [facility] (f [phone] p [phone]);DCP to follow up. Addendum: 02/09/18 at 1255 by Drea Dangelo DP [facility] (f [phone] p [phone]) per [facility] no beds available. DCP faxed to [facility] (f [phone] p [phone]) per [facility] female bed available. DCP faxed to [facility] ( [phone] p [phone]), [place] (f [phone] p [phone]) DCP to follow up. Addendum: 02/09/18 at 1509 by Drea Dangelo DP [facility] p [phone]) per Leigh Ann will accept pt, making room accommodations then will give room number. Addendum: 02/09/18 at 1644 by Drea Dangelo DP ALISON called [facility] (f [phone] p [phone]) spoke to Marisa WIJr asked if Jerri the person handling patients case to call patiedmonds daughter. Patients daughter to discuss why denial to do in home RT. Marisa stated Joseph was manager it security and he would be the one to speak to pt daughter/rn critical care. WIP left message for Jerri. ALISON to follow up
[2018-02-09 12:55] VITALS: BP_SYST 107
--- NOTE | 2018-02-09 14:45 | NUR ---
DC Planning: Called Maci/dtr# [phone] to touch base with her about discharging the pt. to home with [facility] and to arrange vent/O2 settings. The per [facility] Care staff reported that the pt's home is not suitable for the pt. at this time and dr. Valentine Maci was upset and using foul language toward me, she does not want pt. going to [facility] only wants pt. to go home. I was unable to talk more since Maci was very upset and screaming through the phone. I requested to speak with her at the later time. Addendum: 02/09/18 at 1628 by Rosy Winslow RN >> Per Maci's request: Drea LOZADA/tom, Suhda/SURGICAL SERVICES ASSISTANT and Carmneza/Leobardo met with pt. and her spouse to discuss about the dcp. Maci expressed her concerns about the patient health and cares. She mentioned how pt. be taking care at home and has been in and out hospitals and nursing facilities this year. She felt that pt. is better off to be at home with adequate care , and there has been respite provider 06/09 for the pt. KIERRA informed her about home environment that needs to be improved as per assessment by [facility]. Maci is willing to work with [facility] Care as needed. CM/ DCP will contact [facility] to reassess the pt. home environment again.
--- NOTE | 2018-02-09 14:50 | NUR ---
NOTE: FAMILY AT BEDSIDE. PATIENT WAS TURNED AND REPOSITIONED FOR COMFORT. ORAL CARE WAS DONE. COLOSTOMY WAS EMPTIED. PATIENT IN BED WITH NO SIGNS OF DISTRESS. WILL CONTINUE TO MONITOR.
[2018-02-09 15:27] VITALS: BP_SYST 107
--- NOTE | 2018-02-09 16:43 | NUR ---
NOTE: PATIENT LAYING IN BED WITH NO SIGNS OF DISTRESS. FAMILY AT BEDSIDE. PATIENT TURNED AND REPOSITIONED FOR COMFORT. FLUIDS ARE INFUSING. WILL CONTINUE TO MONITOR.
[2018-02-09 17:13] VITALS: BP_SYST 110
[2018-02-09] MEDS: METOCLOPRAMIDE HCL 10 MG TABLET GT SCH ×2 (17:36→23:48)
--- NOTE | 2018-02-09 18:05 | NUR ---
CLOSING NOTE: TOOK PATIENT'S BLOOD SUGAR. NO INSULIN WAS NEEDED. GAVE PATIENT REGLAN AND STARTED FEEDING. PATIENT DOESNT HAVE RESIDUAL. DID ORAL CARE. CHANGED PATIENT'S DRESSING. FOLLOWED WOUND CARE ORDERS. MANJARREZ STILL LEAKING. DEFLATED AND INFLATED BALLOON. PATIENT WAS TURNED AND REPOSITIONED FOR COMFORT. VENT SETTINGS HAVE NOT CHANGED THROUGH OUT SHIFT. FLUIDS ARE INFUSING. BED IN LOWEST POSITION WITH CALL LIGHT IN REACH. PADDED SIDE RAILS ARE UP AND BED ALARM IS ON. WILL CONTINUE TO MONITOR AND GIVE REPORT TO REFRIGERATOR MOVER NURSE. Addendum: 02/09/18 at 1858 by Kari Dixon RN CHARGE NURSE AWARE OF LEAKING MANJARREZ. SAID THEY WILL DEAL WITH IT TOMORROW.
--- NOTE | 2018-02-09 19:15 | NUR ---
ENDORSED PICC LINE DRESSING CHANGE TO NIGHT NURSE.
--- NOTE | 2018-02-09 19:35 | NUR ---
OPENING NOTES Pt and endorsement received from day shift nurse. Pt is resting in bed with both eyes closed. With visible chest rise and fall noted. Pt on mechanical vent with settings as follows: AC: 14, TV: 500, FiO2 30%, PEEP: 5. Pt on G-tube feeding Glucerna 1.2 at 40ml/hr. Pt on IVF with 1/2NS at 70ml/hr infusing well on MARIBEL PICC. Pt on ortiz catheter with yellow urine noted on bad. No signs of acute distress noted. Safety precautions in place with 3 side rails up, bed alarm on and at its lowest level and call light with pt. Aspiration and seizure precautions in place. Will continue to monitor.
[2018-02-09 22:00] VITALS: BP_SYST 139
--- NOTE | 2018-02-09 22:30 | NUR ---
MED PASS Pt is awake, non-verbal and lying in bed. Assessed for bowel sounds and is active on four quadrants upon auscultation. Residual is 0. All G-tube meds given and flushed with 100 ml of sterile water. Pt tolerated well. No signs of acute distress noted. Aspiration precaution maintained with head elevated at 60 degrees. Safety and seizure precautions in place and call light with pt. Will continue to monitor.
[2018-02-09] MEDS: 0.45% NACL 1,000 ML IV SCH (22:45)
[2018-02-10] VITALS: BP_SYST 110
--- NOTE | 2018-02-10 00:15 | NUR ---
ROUNDS Pt is awake while lying in bed. No signs of acute distress noted. Suctioning done as needed. Oral care rendered and pt tolerated well. Aspiration precautions in place with head elevated at 60 degrees. Safety precautions in place and call light with pt. Will continue to monitor.
[2018-02-10] MEDS: IPRATROPIUM BROM 0.5 MG/2.5 ML VIAL.NEB (ATROVENT) INH SCH ×4 (02:04→19:37)
[2018-02-10] MEDS: ALBUTEROL SULFATE 0.083% 2.5 MG/3 ML VIAL.NEB INH SCH ×4 (02:04→19:37)
--- NOTE | 2018-02-10 02:10 | NUR ---
RESTING Pt is resting in bed with both eyes closed. With visible chest rise and fall noted. Suctioning done as needed. No signs of acute distress noted. Safety, seizure and aspiration precautions in place and call light with pt. Will continue to monitor.
--- NOTE | 2018-02-10 04:45 | NUR ---
WOUND CARE DONE Assisted TOOL AND DIE MAKER LEVEL FIVE Analyn with CHG bed bath. Wound care done per guidelines and maintained head elevation at 30 degrees. Positioned pt comfortably. No signs of acute distress noted. Safety, seizure and aspiration precautions maintained. Will continue to monitor.
--- NOTE | 2018-02-10 05:00 | NUR ---
PICC LINE DRESSING CHANGED Pt's PICC line dressing changed. IVF infusing well. Will continue to monitor.
[2018-02-10] MEDS: FERROUS SULFATE 300 MG/5 ML UDC GT SCH ×3 (06:21→17:33)
[2018-02-10] MEDS: METOCLOPRAMIDE HCL 10 MG TABLET GT SCH ×4 (06:21→23:54)
[2018-02-10] MEDS: INSULIN REGULAR, HUMAN 100 UNITS/ML, 10 ML VIAL (novoLIN R) SUBCUT PRN ×2 (06:24→20:52)
--- NOTE | 2018-02-10 07:00 | NUR ---
CLOSING NOTES Pt is resting in bed with both eyes closed. With visible chest rise and fall noted. Maintained mechanical vent settings. No signs of acute distress noted. Suctioning done as needed and oral care rendered. All needs attended throughout the shift. Safety, seizure and aspiration precautions in place. Will endorse to day shift nurse.
[2018-02-10 07:06] LABS: BASOPHILS % (AUTO) 0.2 % (0.0-2.0); EOSINOPHILS # (AUTO) 0.3 K/uL (0.0-0.4); HEMATOCRIT 24.7 % (36-48); HEMOGLOBIN 8.1 g/dL (12.0-16.0); LYMPHOCYTES # (AUTO) 1.6 K/uL (1.0-5.5); LYMPHOCYTES % (AUTO) 12.3 % (20.5-51.5); MEAN CORPUSCULAR HEMOGLOBIN 26 pg (27-31); MEAN CORPUSCULAR HGB CONC 33 % (32-36); MEAN CORPUSCULAR VOLUME 78 fL (79.0-98.0); MONOCYTES # (AUTO) 0.7 K/uL (0.0-1.0); MONOCYTES % (AUTO) 5.5 % (1.7-9.3); PLATELET COUNT (AUTO) 340 K/uL (130-430); RED BLOOD CELL COUNT(AUTO) 3.16 MIL/uL (4.2-6.2); RED CELL DISTRIBUTION WIDTH 21.9 % (9.0-15.0); WHITE BLOOD COUNT (AUTO) 12.6 K/uL (4.8-10.8)
[2018-02-10 07:20] LABS: CREATININE 0.81 mg/dL (0.55-1.30); POTASSIUM 4.3 mmol/L (3.5-5.1)
[2018-02-10 08:00] VITALS: BP_SYST 114
--- NOTE | 2018-02-10 08:00 | NUR ---
PATIENT OPENS EYES, DOESNT TRACK. SR ON MONITOR. ON VENT, AC 14, VT 500ML, FIO2 30%. GTUBE, WITH RESIDUAL 10ML. F/C AND COLOSTOMY IN PLACE. SCDS IN PLACE. CALL LIGHT IN PLACE, BED LOCKED AT THE LOWEST POSITION, WILL CONTINUE TO MONITOR.
[2018-02-10] MEDS: MULTIVIT-MINERALS/FERROUS GLUC 15 ML UDC GT SCH ×2 (09:01→20:47)
[2018-02-10] MEDS: CALCIUM CARBONATE/VITAMIN D3 1 TAB TABLET GT SCH ×2 (09:03→20:48)
[2018-02-10] MEDS: CHOLECALCIFEROL (VITAMIN D3) 2,000 UNIT TABLET GT SCH (09:05)
[2018-02-10] MEDS: POTASSIUM CHLORIDE 20 MEQ/PKT PACKET GT SCH ×2 (09:09→20:47)
[2018-02-10] MEDS: LACTOBACILLUS RHAMNOSUS GG 1 CAP CAPSULE GT SCH ×2 (09:11→20:47)
[2018-02-10] MEDS: ASCORBIC ACID 500 MG TABLET GT SCH ×2 (09:12→20:48)
[2018-02-10] MEDS: FLUCONAZOLE 100 MG TABLET (DIFLUCAN) GT SCH (09:16)
[2018-02-10] MEDS: NAPH,MB-DB/K PH,MBDB 250 MG TAB GT SCH ×2 (09:16→20:47)
[2018-02-10] MEDS: CEFEPIME 1 GM in D5W 50 ML IV SCH ×2 (09:20→20:47)
[2018-02-10] MEDS: BALSAM PERU/CASTOR OIL 60 GM OINT...G. TP SCH (09:20)
[2018-02-10] MEDS: LACTULOSE 20 GM/30 ML UDC GT SCH ×2 (09:22→20:47)
[2018-02-10] MEDS: LevETIRAcetam 500 MG/5 ML UDC ORAL LIQUID GT SCH ×2 (09:23→20:53)
[2018-02-10] MEDS: PANTOPRAZOLE GRANULES PACKET 40 MG GT SCH ×2 (09:25→20:47)
--- NOTE | 2018-02-10 10:12 | NUR ---
Discharge Planning: DCP called [facility] (f [phone] p [phone]) spoke to Guadalupe, Guadalupe stated she had just spoken to patients daughter. Maci chow daughter was informed of the assessment results. Guadalupe will speak to her manager ob to try and get a second home assessment. Guadalupe also stated Joseph the outside sales account manager will call the DCP before the end of the day. DCP confirmed with patient daughter that Guadalupe spoke with her as well, and Maci [phone] will be contacted prior to visit. DCP to follow up Addendum: 02/10/18 at 1644 by Drea LU DCP following up on no call from Joseph the outside sales account manager. poke to guadalupe from [facility] (f [phone] p [phone]) she received denials from her RT managers on doing a second assessment of the home. Guadalupe stated she would call the patients daughter Maci [phone]. DCP to follow up.
--- NOTE | 2018-02-10 10:25 | NUR ---
WOUND RE-EVALUATION: Patient received in a [place] Bed with an Isoflex ENE mattress with low air-loss therapy, awake, alert, nonverbal, nonresponsive to verbal commands. Patient is unable to turn in bed independently. Jeff Score is an 11. Intrinsic factors that delay wound healing: Diabetes Mellitus, Anemia. Extrinsic factors that delay wound healing: Immobility. Wound Assessment: Wound care performed by dayshift nurse this morning. Dressing not removed for assessment secondary to doing so would decrease wound temperature and retard wound healing rate. Assessment provided by nurse's note. 1. Sacral-Coccygeal area: Stage IV Pressure ulcer, present on admission. Wound bed has 20% yellow tissue, 80% red tissue. No odor, scant sanguineous drainage. Periwound is pink. Dark discolored tissue present on surrounding tissue. Undermining present. Recommend continue: Cleanse wound with normal saline. Place moisture barrier cream onto bowen-wound. Apply thick coat of Venelex ointment onto wound bed, then Hydrogel. Pack wound with two 2.2 inch TenderWet dressings, pushing one dressing into undermined area. Cover with Sacral foam dressing. Perform wound care daily, and as needed for dressing soiling or dislodgement. Also recommend continue: Reposition patient side to side only every hour with pillow support (place a wedge underneath the trunk and the pillow underneath the buttock and posterior thigh to allow the sacrococcygeal area to float freely at all times). Off-load pressure areas with pillows for pressure re-distribution. Offload, elevate and float bilateral heels with one pillow lengthwise under each extremity at all times. Perform skin care and monitor skin integrity Q shift. Use moisture barrier cream on buttocks and other moisture susceptible areas QID and as needed for soiling. Maintain patient on a low air-loss mattress.
--- NOTE | 2018-02-10 11:30 | NUR ---
BS 132. No coverage needed.
[2018-02-10 12:25] VITALS: BP_SYST 125
[2018-02-10] MEDS: 0.45% NACL 1,000 ML IV SCH (12:26)
--- NOTE | 2018-02-10 14:59 | NUR ---
Patient is turned and repositioned for comfort.
[2018-02-10 16:25] VITALS: BP_SYST 133
--- NOTE | 2018-02-10 16:30 | NUR ---
Patient is turned and repositioned for comfort. No signs of distress noted.
--- NOTE | 2018-02-10 18:00 | NUR ---
BS 124. No coverage needed.
[2018-02-10 20:42] VITALS: BP_SYST 109
--- NOTE | 2018-02-10 22:00 | NUR ---
WOUND CARE/COLOSTOMY BAG CHANGED Pt's colostomy bag was leaking, changed with new bag. Changed sacral wound by cleansing with sterile water, pat dried with sterile gauze, applied venelex oinment and then hydrogel, applied two tenderwet and covered with sacral foam dressing. Aspiration precaution maintained with head elevated 30 degrees while doing the procedure. Positioned pt comfortably and suctioning done as needed. Safety and seizure precautions in place and call light with pt. Will continue to monitor.
[2018-02-11] VITALS (9 sets, daily range): BP systolic 106–126
--- NOTE | 2018-02-11 00:15 | NUR ---
ROUNDS Pt is awake while lying in bed. No signs of acute distress noted. Suctioning done as needed. Assessed for bowel sounds and is active upon auscultation. No residual upon aspiration. Free water of 100ml given via G-tube. Oral care rendered and pt tolerated well. Safety, seizure and aspiration precautions in place. Call light with pt, will continue to monitor.
[2018-02-11] MEDS: 0.45% NACL 1,000 ML IV SCH ×2 (01:29→17:20)
[2018-02-11] MEDS: IPRATROPIUM BROM 0.5 MG/2.5 ML VIAL.NEB (ATROVENT) INH SCH ×4 (01:46→19:28)
[2018-02-11] MEDS: ALBUTEROL SULFATE 0.083% 2.5 MG/3 ML VIAL.NEB INH SCH ×4 (01:46→19:28)
--- NOTE | 2018-02-11 03:41 | NUR ---
RESTING Pt is resting in bed with both eyes closed. With visible chest rise and fall noted. No signs of acute distress noted. Safety, seizure and aspiration precautions in place and call light with pt. Will continue to monitor.
--- NOTE | 2018-02-11 04:30 | NUR ---
ROUNDS Pt is awake while lying in bed. No signs of acute distress noted. Oral care rendered and suctioning done as needed while maintaining aspiration precaution with head elevated at 60 degrees. Pt tolerated well. Safety and seizure precautions in place and call light with pt. Will continue to monitor.
[2018-02-11] MEDS: FERROUS SULFATE 300 MG/5 ML UDC GT SCH ×3 (06:16→17:20)
[2018-02-11] MEDS: METOCLOPRAMIDE HCL 10 MG TABLET GT SCH ×4 (06:16→23:05)
[2018-02-11] MEDS: INSULIN REGULAR, HUMAN 100 UNITS/ML, 10 ML VIAL (novoLIN R) SUBCUT PRN ×2 (06:20→12:33)
--- NOTE | 2018-02-11 06:38 | NUR ---
CLOSING NOTES Pt is resting in bed with both eyes closed. With visible chest rise and fall noted. No signs of acute distress noted. Mechanical vent settings maintained and no changes were made. G-tube and IVF infusing well. Suctioning done as needed. All needs attended throughout the shift. Safety, aspiration and seizure precautions are in place. Will endorse to day shift nurse.
[2018-02-11 07:25] LABS: BASOPHILS % (AUTO) 0.1 % (0.0-2.0); EOSINOPHILS # (AUTO) 0.2 K/uL (0.0-0.4); EOSINOPHILS % (AUTO) 1.9 % (0.0-4.0); HEMATOCRIT 23.9 % (36-48); LYMPHOCYTES # (AUTO) 1.5 K/uL (1.0-5.5); LYMPHOCYTES % (AUTO) 11.7 % (20.5-51.5); MEAN CORPUSCULAR HEMOGLOBIN 26 pg (27-31); MEAN CORPUSCULAR HGB CONC 33 % (32-36); MEAN CORPUSCULAR VOLUME 79 fL (79.0-98.0); MONOCYTES # (AUTO) 0.9 K/uL (0.0-1.0); MONOCYTES % (AUTO) 6.8 % (1.7-9.3); NEUTROPHILS % (AUTO) 79.5 % (40.0-70.0); PLATELET COUNT (AUTO) 291 K/uL (130-430); RED BLOOD CELL COUNT(AUTO) 3.03 MIL/uL (4.2-6.2); RED CELL DISTRIBUTION WIDTH 21.9 % (9.0-15.0); WHITE BLOOD COUNT (AUTO) 12.6 K/uL (4.8-10.8)
[2018-02-11 07:53] LABS: CALCIUM 9.8 mg/dL (8.4-11.0); CREATININE 0.75 mg/dL (0.55-1.30); POTASSIUM 4.1 mmol/L (3.5-5.1)
[2018-02-11] MEDS: CHOLECALCIFEROL (VITAMIN D3) 2,000 UNIT TABLET GT SCH (08:36)
[2018-02-11] MEDS: NAPH,MB-DB/K PH,MBDB 250 MG TAB GT SCH ×2 (08:36→20:47)
[2018-02-11] MEDS: MULTIVIT-MINERALS/FERROUS GLUC 15 ML UDC GT SCH ×2 (08:36→20:46)
[2018-02-11] MEDS: LevETIRAcetam 500 MG/5 ML UDC ORAL LIQUID GT SCH ×2 (08:37→20:47)
[2018-02-11] MEDS: CEFEPIME 1 GM in D5W 50 ML IV SCH ×2 (08:37→20:47)
[2018-02-11] MEDS: PANTOPRAZOLE GRANULES PACKET 40 MG GT SCH ×2 (08:38→20:40)
[2018-02-11] MEDS: ASCORBIC ACID 500 MG TABLET GT SCH ×2 (08:38→20:39)
[2018-02-11] MEDS: FLUCONAZOLE 100 MG TABLET (DIFLUCAN) GT SCH (08:38)
[2018-02-11] MEDS: POTASSIUM CHLORIDE 20 MEQ/PKT PACKET GT SCH ×2 (08:38→20:39)
[2018-02-11] MEDS: LACTULOSE 20 GM/30 ML UDC GT SCH ×2 (08:38→20:39)
[2018-02-11] MEDS: CALCIUM CARBONATE/VITAMIN D3 1 TAB TABLET GT SCH ×2 (08:38→20:39)
[2018-02-11] MEDS: LACTOBACILLUS RHAMNOSUS GG 1 CAP CAPSULE GT SCH ×2 (08:38→20:39)
[2018-02-11] MEDS: BALSAM PERU/CASTOR OIL 60 GM OINT...G. TP SCH (08:38)
--- NOTE | 2018-02-11 09:30 | NUR ---
RT NOTES: [address] OAKLEY ORDER PLACED PT ON VENT SETTINGS: SIMV 8 PS 10 PEEP+5, DJA370% WHICH PT DID NOT EVAN. WELL WITH VITALS SIGNS OF RR32, HR 93bpm, SPO2 94%. 934 PLACED PT BACK ON ORIGINAL VENT SETTINGS DUE TO RESP. DISTRESS. PLACED PT ON VENT SETTINGS OF AC/VC, RR 14, VT 500mL, PEEP+5, FIO2 30%. PT NO LONGER IN RESP. DISTRESS. WILL CONTINUE MONITORING PT CLOSELY. TRACH IS SECURE AND PATENT. KRISTINE GILBERT HAS BEEN INFORMED. Addendum: 02/11/18 at 1014 by Nathalia Thomas RT Amended: Links added.
--- NOTE | 2018-02-11 11:36 | NUR ---
BLOOD SUGAR 152. 2 UNITS OF RI WILL BE GIVEN SUBCUT
--- NOTE | 2018-02-11 13:40 | NUR ---
WOUND CARE: sacral wound is cleansed with NS, patted dry, apply with hydrogel with thick coat of Venelex ointment onto wound bed, then Hydrogel. Pack wound with two 2.2 inch TenderWet dressings, pushing one dressing into undermined area. Cover with Sacral foam dressing. Perform wound care daily, and as needed for dressing soiling or dislodgement.
--- NOTE | 2018-02-11 14:30 | NUR ---
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 Coli, Hx CVA Subjective Information Pt remains +unresponsive w/ TF infusing (Glucerna 1.2 not 1.5) -- RD notified RN. Per RN, pt has been tolerating TF well, though seems to be muscle and fat wasting. RN also reported that pt's colostomy bag was changed last night, and that pt has had a little bit of stool output today. Per EMR, TF Intakes: 350 ml 02/11/18. Residuals: 20 ml 02/11/18. Abd is soft w/ active bowel sounds. Pt may benefit from an increase in nutrition support to aid in possible hypermetabolic state. Current Diet Order/Nutrition Support Glucerna 1.5 at 40 ml/hr, Marques BID, Prosource TID Free Water Flush: 100 q 4 via GT x11 days Patient/Significant Other Unable To Verbalize Education Provided Not Indicated Pertinent Medications neutraphos, reglan, zofran, VIT D-3, protonix, culturelle, centrum, zinc sulfate, lactulose, os-shorty, VIT C, ferrous sulfate, SSI, tums Pertinent Labs POC BG 126 H, BG 152 H, BUN 29, H/H 8 L/23.9 L, WBC 12.6 H 02/04/18: ALB 1.4 L Height (Feet 5 feet Height (Inches) 3.00 inches Weight (Pounds) 152 pounds (01/17/18) BED SCALE WT: 186.5 lb (01/23) ---may be inaccurate d/t blankets/pillows Weight (Calculated Kilograms) 68.027767 kilograms Patient Weight 68.946 kg Body Mass Index 26.92 kg/m2 %IBW 133 Merino/Adjusted Body Weight IBW: 115 lb, 52 kg. Adj IBW (obesity): 124 lb, 56 kg Recent Weight Change No Weight Status Overweight Last BM 02/11/18 Food Allergies No Usual Diet At Home Unable to assess per EMR Skin Integrity Comment: Jeff scale: 12; per Adjunct Psychology Professor note 02/10/18: 1. Sacral-Coccygeal area: Stage IV Pressure ulcer, present on admission. Bilateral generalized non-pitting edema; BUE w/ 1+ pitting edema Estimated Energy Expenditure (kcals/day) 2659-1974 kcal/day (30-35 kcal/kg Adj IBW for sepsis, wound healing) Estimated Protein Required (g/day) 67-112 gm/day (1.2-2 gm/kg Adj IBW for sepsis, wound healing) Estimated Fluid Required (l/day) Per MD (ARF) Problem/Etiology/Signs/Symptoms Inadequate enteral nutrition related to metabolic demands as evidenced by current TF regimen meets 79% of estimated caloric needs and 94% of estimated protein needs. *improving Expected Outcomes/Goals - Monitor tolerance to EN support w/ goal of pt meeting at least 85% of estimated nutritional needs, labs trending WNL, normal GI function, and skin integrity/wt maintenance Dietitian Recommendations * Recommend Glucerna 1.5 at 45 ml/hr, Marques BID, Prosource TID, Free Water Flush: 100 ml Q4h via GT Provides: 1980 kcal/day, 139 gm protein/day, and 1420 ml free water/day Meets: 101% of upper end of estimated caloric needs and 124% of upper end of estimated protein needs Follow Up Moderate Risk: F/U in 3-5 days
--- NOTE | 2018-02-11 14:35 | NUR ---
Dietitian Recommendations * Recommend Glucerna 1.5 at 45 ml/hr, Marques BID, Prosource TID, Free Water Flush: 100 ml Q4h via GT Provides: 1980 kcal/day, 139 gm protein/day, and 1420 ml free water/day LP, RD Please refer to Nutrition F/U for details.
--- NOTE | 2018-02-11 15:28 | NUR ---
Patient is turned and repositioned for comfort.
--- NOTE | 2018-02-11 17:10 | NUR ---
BS 115. NO COVERAGE NEEDED.
--- NOTE | 2018-02-11 18:10 | NUR ---
COLOSTOMY BAG IS LEAKING, AND IT IS CHANGED. ASPIRATION PRECAUTION IS MAINTAINED.
--- NOTE | 2018-02-11 19:32 | NUR ---
OPENING NOTES RECEIVED PATIENT RESTING IN BED EYES CLOSED. BREATHING UNLABORED TRACH TO VENT ON AC 14 TV500 FI02 30% P5. GT FEEDING AND IVF INFUSING ORDERED. HOB ELEVATED 30 DEGREES. ASPIRATION AND SEIZURE PRECAUTIONS OBSERVED. CALL LIGHT WITH IN REACH. BED IN LOWEST LOCKED POSITION. BED ALARM ON.
--- NOTE | 2018-02-11 20:47 | NUR ---
MED PASS DUE MEDICATIONS GIVEN AND TOLERATED. NO RESIDUAL OBTAINED FROM GT. HS CARE DONE. LINENS CHANGED.
--- NOTE | 2018-02-11 23:05 | NUR ---
MED PASS DUE MEDICATION GIVEN. GT FEEDING NO RESIDUAL. IVF INFUSING ORDERED. 02 SAT 99%.
[2018-02-12] MEDS: IPRATROPIUM BROM 0.5 MG/2.5 ML VIAL.NEB (ATROVENT) INH SCH ×3 (01:43→19:23)
[2018-02-12] MEDS: ALBUTEROL SULFATE 0.083% 2.5 MG/3 ML VIAL.NEB INH SCH ×3 (01:43→19:23)
--- NOTE | 2018-02-12 01:56 | NUR ---
ROUNDS PATIENT RESTING IN BED. VENT SETTINGS TOLERATED. IVF/GT FEEDING INFUSING ORDERED. NO DISTRESS NOTED. HOB ELEVATED 30 DEGREES.
[2018-02-12 02:42] VITALS: BP_SYST 118
--- NOTE | 2018-02-12 04:04 | NUR ---
GT CARE GT DRESSING CHANGED. AM CARE DONE. LINENS CHANGED.
[2018-02-12] MEDS: METOCLOPRAMIDE HCL 10 MG TABLET GT SCH ×3 (05:20→17:16)
[2018-02-12] MEDS: FERROUS SULFATE 300 MG/5 ML UDC GT SCH ×3 (05:20→17:16)
[2018-02-12] MEDS: 0.45% NACL 1,000 ML IV SCH (05:21)
--- NOTE | 2018-02-12 05:22 | NUR ---
WOUND CARE WOUND CARE DONE ORDERED TO SACRAL WOUND. NEW DRESSING APPLIED.
--- NOTE | 2018-02-12 06:44 | NUR ---
CLOSING NOTES PATIENT RESTING IN BED. NO DISTRESS NOTED. CURRENT VENT SETTINGS TOLERATED. 02 SAT 99%. GT FEEDING TOLERATED AT 40 ML/HR. IVF CONTINUOUSLY INFUSING ORDERED. MARIBEL PICC LINE DRESSING DRY/INTACT. PATIENT NEEDS ATTENDED. BED IN LOWEST LOCKED POSITION. SIDE RAILS PADDED UP X3. CALL LIGHT WITH IN EASY REACH. BED ALARM ON. HOB ELEVATED 30 DEGREES.
[2018-02-12 07:05] LABS: CALCIUM 9.6 mg/dL (8.4-11.0); CREATININE 0.72 mg/dL (0.55-1.30); POTASSIUM 4.2 mmol/L (3.5-5.1)
[2018-02-12 07:32] LABS: BASOPHILS % (AUTO) 0.1 % (0.0-2.0); EOSINOPHILS # (AUTO) 0.2 K/uL (0.0-0.4); EOSINOPHILS % (AUTO) 1.9 % (0.0-4.0); HEMATOCRIT 23.9 % (36-48); LYMPHOCYTES # (AUTO) 1.3 K/uL (1.0-5.5); MEAN CORPUSCULAR HEMOGLOBIN 26 pg (27-31); MEAN CORPUSCULAR HGB CONC 33 % (32-36); MEAN CORPUSCULAR VOLUME 79 fL (79.0-98.0); MONOCYTES # (AUTO) 0.7 K/uL (0.0-1.0); MONOCYTES % (AUTO) 6.2 % (1.7-9.3); NEUTROPHILS # (AUTO) 9.6 K/uL (1.8-7.7); NEUTROPHILS % (AUTO) 80.8 % (40.0-70.0); PLATELET COUNT (AUTO) 279 K/uL (130-430); RED BLOOD CELL COUNT(AUTO) 3.03 MIL/uL (4.2-6.2); RED CELL DISTRIBUTION WIDTH 21.7 % (9.0-15.0); WHITE BLOOD COUNT (AUTO) 11.8 K/uL (4.8-10.8)
--- NOTE | 2018-02-12 07:45 | NUR ---
INITIAL NOTE RECEIVED PT IN BED, NO S/S OF DISTRESS OR SOB NOTED, PT HAS NO C/O PAIN AT THIS TIME, PT IN STABLE CONDITION, PT AAOX1. NONVERBAL, PROVIDED PT WITH REALITY ORIENTATION. PT HAS A PICC LINE ON RIGHT UPPER ARM, BOTH PORTS FLUSH AND HAVE BLOOD RETURN, DRESSING CLEAN AND DRY, NON OCCLUDED. BED AT LOWEST POSITION, CALL LIGHT WITHIN REACH, WILL CONTINUE TO MONITOR PT FOR ANY CHANGES, FALL, SEIZURE AND CONTACT AND SAFETY PRECAUTIONS IN PLACE. PT HAS BILATERAL SCD'S IN PLACE. PT ON VENTILATOR AT PRESCRIBED SETTINGS. PT HAS A G TUBE, PATENT, NO RESIDUAL, PLACEMENT VERIFIED AND FLUSHES, CLEAN AND DRY DRESSING. PT HAS A COLOSTOMY ON LEFT MID ABD, STOMA BEEFY RED.
[2018-02-12 07:52] LABS: HEMOGLOBIN 7.9 g/dL (12.0-16.0)
[2018-02-12 08:45] VITALS: BP_SYST 110
[2018-02-12] MEDS: CHOLECALCIFEROL (VITAMIN D3) 2,000 UNIT TABLET GT SCH (08:49)
[2018-02-12] MEDS: CEFEPIME 1 GM in D5W 50 ML IV SCH ×2 (08:49→21:14)
[2018-02-12] MEDS: PANTOPRAZOLE GRANULES PACKET 40 MG GT SCH ×2 (08:49→21:14)
[2018-02-12] MEDS: MULTIVIT-MINERALS/FERROUS GLUC 15 ML UDC GT SCH ×2 (08:50→21:13)
[2018-02-12] MEDS: FLUCONAZOLE 100 MG TABLET (DIFLUCAN) GT SCH (08:50)
[2018-02-12] MEDS: LACTOBACILLUS RHAMNOSUS GG 1 CAP CAPSULE GT SCH ×2 (08:50→21:14)
[2018-02-12] MEDS: LACTULOSE 20 GM/30 ML UDC GT SCH ×2 (08:50→21:12)
[2018-02-12] MEDS: POTASSIUM CHLORIDE 20 MEQ/PKT PACKET GT SCH ×2 (08:50→21:14)
[2018-02-12] MEDS: ASCORBIC ACID 500 MG TABLET GT SCH ×2 (08:50→21:14)
[2018-02-12] MEDS: NAPH,MB-DB/K PH,MBDB 250 MG TAB GT SCH ×2 (08:50→21:13)
[2018-02-12] MEDS: CALCIUM CARBONATE/VITAMIN D3 1 TAB TABLET GT SCH ×2 (08:50→21:14)
[2018-02-12] MEDS: LevETIRAcetam 500 MG/5 ML UDC ORAL LIQUID GT SCH ×2 (08:51→21:13)
[2018-02-12] MEDS: BALSAM PERU/CASTOR OIL 60 GM OINT...G. TP SCH (08:52)
--- NOTE | 2018-02-12 10:20 | NUR ---
ROUNDS PT IN BED, NO S/S OF DISTRESS OR SOB NOTED, PT HAS NO FACIAL GRIMACING NOTED FOR PAIN, PT IN STABLE CONDITION, PT RESTING COMFORTABLY, WILL CONTINUE TO MONITOR PT FOR ANY CHANGES.
[2018-02-12 11:15] VITALS: BP_SYST 121
[2018-02-12] MEDS: INSULIN REGULAR, HUMAN 100 UNITS/ML, 10 ML VIAL (novoLIN R) SUBCUT PRN ×2 (11:24→17:15)
[2018-02-12 13:31] VITALS: BP_SYST 110
[2018-02-12 16:30] VITALS: BP_SYST 129
--- NOTE | 2018-02-12 17:30 | NUR ---
COLOSTOMY BAG CHANGED COLOSTOMY BAG LEAKING AND CAME OFF, STOMA BEEFY RED IN COLOR, CHANGED BAG, PT TOLERATED.
[2018-02-12] MEDS ORDERED: EPOETIN ALFA 4,000 UNITS/ML VIAL SUBCUT ONE (17:45)
--- NOTE | 2018-02-12 18:34 | NUR ---
CLOSING NOTE PT IN BED, NO S/S OF DISTRESS OR SOB NOTED, PT HAS NO FACIAL GRIMACING NOTED FOR PAIN, PT IN STABLE CONDITION, PT AAOX1. NONVERBAL, PROVIDED PT WITH REALITY ORIENTATION. PT HAS A PICC LINE ON RIGHT UPPER ARM, BOTH PORTS FLUSH AND HAVE BLOOD RETURN, DRESSING CLEAN AND DRY, NON OCCLUDED. BED AT LOWEST POSITION, CALL LIGHT WITHIN REACH, WILL ENDORSE CARE OF PT TO INCOMING NURSE, FALL, SEIZURE AND CONTACT AND SAFETY PRECAUTIONS IN PLACE. PT HAS BILATERAL SCD'S IN PLACE. PT ON VENTILATOR AT PRESCRIBED SETTINGS. PT HAS A G TUBE, PATENT, TOLERATING FEEDINGS. PT HAS A COLOSTOMY ON LEFT MID ABD, STOMA BEEFY RED, CHANGED EARLIER.
[2018-02-12 19:50] VITALS: BP_SYST 146
--- NOTE | 2018-02-12 19:50 | NUR ---
INITIAL NOTES: PT IS AWAKE , NOT IN ANY ACUTE DISTRESS; VITALS ARE STABLE ; ON VENT WITH SIMV SETTING SIMV 8 , TV 500 PEEP 5 , PS 10 , PT IS TOLERATING VENT SUPPORT WELL AT THIS TIME ; IV ON THE R UA PICC LINE DOUBLE LUMEN , DRESSING CLEAN DRY AND INTACT , FLUSHED WELL ;GOOD BLOOD RETURN NOTED ; IV FLUID 1/2 NS AT 30 ML /HR IS INFUSING WELL , NO S/S OF ANY INFILTRATION NOTED ; COLOSTOMY TO THE LEFT ABDOMEN NOTED WITH BROWN LOOSE BM , MANJARREZ NOTED LEAKING , REMOVED WATER IN THE BULB AND INSERTED 10 ML , WILL WATCH FOR LEAKING , SKIN IS NON INTACT DRESSING NOTED TO THE SACRUM , GT FEEDING IS INFUSING GLUCERNA AT THE RATE OF 45 ML /HR ;GT FLUSHED WELL , 5 ML OF RESIDUAL NOTED . NOTICED THAT PT IS ABLE TO MOVE HER R ARM , NOTICED SHE IS ITCHING HER CHEST AND REMOVING HER LEADS , NO REDNESS OR RASHES NOTED AT THIS TIME ; WILL MONITOR PT ; PT IS ON TELE MONITOR ; ASSESSMENT DONE ; ORAL CARE PROVIDED MOUTH AND ORAL SUCTION PROVIDED ; PT IS UNABLE TO USE THE CALL MUNOZ ; BED IN LOW AND LOCK POSIIOTN , CALL MUNOZ IN REACH . WILL CONTINUE TO MONITOR PT . Addendum: 02/12/18 at 9624 by Loreto Hong RN COLOSTOMY STOMA IS RED IN COLOR
--- NOTE | 2018-02-12 21:15 | NUR ---
MEDICATION: DUE MEDS GIVEN PER ORDER - MEDS CRUSHED AND GIVEN VIA GT , GT FLUSHED WELL , DAUGHTER SHARITA CALLED , UPDATED HER ABOUT THE PT STATUS AND PLAN OF CARE . JOAN CARE GIVEN , LINEN CHANGED ; DRESSING IN PLACE , CLEAN AND DRY , PT IS COMFORTABLE ; PT TURNED AND REPOSITIONED . IV FLUID IS INFUSING WELL . PT IS TOLERATING VENT SETTING WELL .
--- NOTE | 2018-02-12 22:15 | NUR ---
SUPPLEMENTARY DIET ; PER DIET ORDER PT IS ORDERED WITH JAYME AND PRO SOURCE AT NIGHT , GAVE IT PER ORDER . WILL CONTINUE TO MONITOR PT .PT IS COMFORTABLE .
[2018-02-13] VITALS (8 sets, daily range): BP systolic 130–152
--- NOTE | 2018-02-13 00:10 | NUR ---
RN NOTES: PT IS AWAKE , SLEEPING ON AND OFF , NOT IN ANY ACUTE DISTRESS; VITALS RE STABLE ;ORAL CARE GIVEN,ORAL AND TRACHEAL SUCTION PROVIDED . PT TURNED AND REPOSITION PT ; WILL CONTINUE TO MONITOR PT .
[2018-02-13] MEDS: IPRATROPIUM BROM 0.5 MG/2.5 ML VIAL.NEB (ATROVENT) INH SCH ×4 (01:14→20:27)
[2018-02-13] MEDS: ALBUTEROL SULFATE 0.083% 2.5 MG/3 ML VIAL.NEB INH SCH ×4 (01:14→20:26)
--- NOTE | 2018-02-13 01:14 | NUR ---
RT NOTES 0114 RT NOTICED REDNESS OF THE SUTURE, AND STITCHES LOOKS LIKE PULLING THE SKIN. ASKED RN PRIYANKA WHEN SUTURE WILL BE REMOVED AND WHO WILL DO IT. RN PRIYANKA AWARE OF THE SITUATION AND REDNESS OF THE SUTURE, THAT IT MAY CAUSE INFECTION IF SUTURE WOULD REMAIN. DID TRACH CARE, NO RESP DISTRESS NOTED. TRACH PATENT AND SECURED. WILL CONTINUE TO MONITOR PT.
--- NOTE | 2018-02-13 01:30 | NUR ---
G T FEEDING CHANGED : G T FEEDING BAG AND TUBING CHANGED . G T FLUSHED WELL . PT IS COMFORTABLE ; RT AT BEDSIDE CHANGING THE DRESSING TO THE TRACH SITE , NOTICED MILD REDNESS AROUND THE STOMA . WILL NOTIFY DAY SHIFT RN TO INFORM MD .
[2018-02-13] MEDS: 0.45% NACL 1,000 ML IV SCH (01:56)
[2018-02-13] MEDS: METOCLOPRAMIDE HCL 10 MG TABLET GT SCH ×4 (01:56→17:33)
--- NOTE | 2018-02-13 03:25 | NUR ---
RN NOTES: PT IS SLEEPING , RESPIRATION IS EVEN AND NON LABORED ; SAT 98% ; G T FEEDING AND IV FLUID IS INFUSING WELL ; WILL CONTINUE TO MONITOR PT .
--- NOTE | 2018-02-13 05:00 | NUR ---
SPONGE BATH/ DRESSING : SPONGE BATH AND JOAN CARE GIVEN , PT CLEANED WITH SOAP AND WARM WATER ; LINEN AND GOWN CHANGED ; NOTICED THAT STILL PTS MANJARREZ IS LEAKING , WILL ENDORSE TO DAY SHIFT TO NOTIFY MD ; DRESSING TO THE SACRAL AREA REMOVED ; NOTICED WOUND BED RED AND PINK AND YELLOW ,AND CLEANED WITH NS , APPLIED VENELEX AND HYDROGEL TO THE WOUND BED , COVERED WITH TENDERWET , PERIWOUND APPLIED BARRIER CREAM , WOUND COVERED WITH SACRAL DRESSING . PT TOLERATED WELL . NO S/S OF ANY DISCOMFORT NOTED ; WILL CONTINUE TO MONITOR PT.PT TURNED NAD REPOSITIONED ; APPLIED Z GUARD TO THE PERINEAL AREA .
[2018-02-13] MEDS: FERROUS SULFATE 300 MG/5 ML UDC GT SCH ×3 (06:04→17:33)
--- NOTE | 2018-02-13 06:10 | NUR ---
MEDICATION: DUE MEDS GIVEN PER ORDER , BS 123 , NO INSULIN COVERAGE NEEDED ; WILL CONTINUE TO MONITOR PT .
[2018-02-13 07:09] LABS: EOSINOPHILS # (AUTO) 0.3 K/uL (0.0-0.4)
--- NOTE | 2018-02-13 07:20 | NUR ---
Opening Note patient resting in bed, eyes closed, breathing unlabored on mechanical ventilatory, HOB elevated, no signs of distress, IV fluids infusing, G-tube infusing, ortiz draining via gravity, positioned with pillow support, safety, isolation and aspiration precautions in place, bed in lowest position with 3 side rails up, will continue to monitor
--- NOTE | 2018-02-13 07:20 | NUR ---
CLOSING NOTES: REPORT GIVEN TO RN AT BEDSIDE , INFORMED RN ABOUT THE TRACHEOSTOMY SUTURES AND REDNESS AROUND THE STOMA SITE;GT FEEDING AND IV FLUID IS INFUSING PER ORDER ; PT IS TOLERATING VENT SETTING . NOT IN ANY DISTRESS.
[2018-02-13 07:40] LABS: BASOPHILS % (AUTO) 0.2 % (0.0-2.0); HEMATOCRIT 25.2 % (36-48); HEMOGLOBIN 7.9 g/dL (12.0-16.0); LYMPHOCYTES # (AUTO) 1.3 K/uL (1.0-5.5); LYMPHOCYTES % (AUTO) 9.9 % (20.5-51.5); MEAN CORPUSCULAR HEMOGLOBIN 25 pg (27-31); MEAN CORPUSCULAR HGB CONC 31 % (32-36); MEAN CORPUSCULAR VOLUME 78 fL (79.0-98.0); MONOCYTES # (AUTO) 0.8 K/uL (0.0-1.0); NEUTROPHILS # (AUTO) 10.4 K/uL (1.8-7.7); NEUTROPHILS % (AUTO) 81.9 % (40.0-70.0); PLATELET COUNT (AUTO) 297 K/uL (130-430); RED BLOOD CELL COUNT(AUTO) 3.24 MIL/uL (4.2-6.2); WHITE BLOOD COUNT (AUTO) 12.8 K/uL (4.8-10.8)
[2018-02-13 07:45] LABS: CALCIUM 9.9 mg/dL (8.4-11.0); CREATININE 0.66 mg/dL (0.55-1.30); POTASSIUM 4.6 mmol/L (3.5-5.1)
[2018-02-13 08:51] LABS: RED CELL DISTRIBUTION WIDTH 21.8 % (9.0-15.0)
[2018-02-13] MEDS: MULTIVIT-MINERALS/FERROUS GLUC 15 ML UDC GT SCH ×2 (09:08→21:01)
[2018-02-13] MEDS: LACTULOSE 20 GM/30 ML UDC GT SCH ×2 (09:09→21:00)
[2018-02-13] MEDS: CALCIUM CARBONATE/VITAMIN D3 1 TAB TABLET GT SCH ×2 (09:09→21:00)
[2018-02-13] MEDS: FLUCONAZOLE 100 MG TABLET (DIFLUCAN) GT SCH (09:09)
[2018-02-13] MEDS: CHOLECALCIFEROL (VITAMIN D3) 2,000 UNIT TABLET GT SCH (09:09)
[2018-02-13] MEDS: NAPH,MB-DB/K PH,MBDB 250 MG TAB GT SCH ×2 (09:09→21:00)
[2018-02-13] MEDS: PANTOPRAZOLE GRANULES PACKET 40 MG GT SCH ×2 (09:09→21:00)
[2018-02-13] MEDS: ASCORBIC ACID 500 MG TABLET GT SCH ×2 (09:09→21:00)
[2018-02-13] MEDS: LACTOBACILLUS RHAMNOSUS GG 1 CAP CAPSULE GT SCH ×2 (09:09→21:01)
[2018-02-13] MEDS: CEFEPIME 1 GM in D5W 50 ML IV SCH ×2 (09:09→21:02)
[2018-02-13] MEDS: BALSAM PERU/CASTOR OIL 60 GM OINT...G. TP SCH (09:10)
[2018-02-13] MEDS: LevETIRAcetam 500 MG/5 ML UDC ORAL LIQUID GT SCH ×2 (09:38→21:02)
[2018-02-13] MEDS: POTASSIUM CHLORIDE 20 MEQ/PKT PACKET GT SCH ×2 (09:38→21:01)
--- NOTE | 2018-02-13 09:40 | NUR ---
Medication Administration educated patient regarding meds, unable to verbalize understanding, she is awake and alert, HOB remains elevated, aspiration precautions in place, g-tube and IV fluids infusing, safety and isolation precautions in place, bed in lowest position with 3 side rails up, bedside table and call light within reach, will continue to monitor
--- NOTE | 2018-02-13 09:59 | NUR ---
[facility] Spoke with Marisa, informed her that following up on tracheotomy performed by MD on 01/30 and to see if MD is going to remove stitches. Verbalized understanding stated MD is in office at this time with patient, took down phone number and awaiting call back from MD.
[2018-02-13] MEDS: INSULIN REGULAR, HUMAN 100 UNITS/ML, 10 ML VIAL (novoLIN R) SUBCUT PRN ×3 (11:42→21:29)
--- NOTE | 2018-02-13 11:51 | NUR ---
Blood Sugar/Meds sugar assessed, insulin provided per sliding scale, g-tube assessed, 0 residual, no signs of distress, patient awake and alert, HOB elevated, safety, isolation and aspiration precautions in place, call light and bedside table left within reach, will continue to monitor patient
--- NOTE | 2018-02-13 14:04 | NUR ---
Spoke with Dr. Rodriguez/Follow-up Tracheostomy asked MD if he will remove stitches on tracheostomy, also informed him that site is slightly reddish/pink with no active bleeding and tracheostomy is fitting slightly loosely. MD verbalized understanding, stated is normal for tracheostomy to fit loosely. Also stated that stitches may be left indefinitely or that stitches may be removed at any time and does not have to be removed by him. MD stated that he will stop by on 02/16/17 to remove stitches to "avoid confusion" among staff members. Will endorse to next nurse and continue to monitor site
--- NOTE | 2018-02-13 14:11 | NUR ---
Discharge Planning: DCP faxed pt referral to [facility] (f [phone] p [phone])DCP to follow up Addendum: 02/13/18 at 1547 by Drea LU DCP called [facility] (f [phone] p [phone]) left message regarding referral faxed, office is closed. DCP to follow up.
--- NOTE | 2018-02-13 15:20 | NUR ---
BT INITIATION: Consent signed per Dr. Valentine agreeing to administration of blood. Blood has been type and crossmatched. Blood sent from blood bank. Information on unit of blood checked against patient wristband at bedside by two nurses. All information matches. Patient informed of potential complications associated with blood transfusion. Informed of possible transfusion reaction symptoms. Vital signs taken within 5 minutes prior to initiation of transfusion. RN will remain with patient for first 15 minutes of transfusion at which time vital signs will be re-assessed.
--- NOTE | 2018-02-13 15:35 | NUR ---
Blood Transfusion Reassessment patient resting in bed, eyes closed, breathing unlabored, no signs of distress, vitals within normal limits, tolerating well, no temperature noted, safety, isolation and aspiration precautions remain in place, will continue to monitor patient closely
--- NOTE | 2018-02-13 17:20 | NUR ---
Wound Care Performed at this time per protocol, patient tolerated well, she was repositioned, HOB remains elevated, safety, isolation and aspiration precautions remain in place, will continue to monitor
[2018-02-13] MEDS: EPOETIN ALFA 10,000 UNITS/ML VIAL SUBCUT SCH (17:34)
--- NOTE | 2018-02-13 17:40 | NUR ---
Medication Administration/Blood Sugar/Colostomy emptied educated patient regarding meds, unable to verbalize understanding, tolerated well, G-tube had 0 residual, colostomy emptied 200 mL liquid stool, safety, isolation and aspiration precautions remain in place, will continue to monitor
--- NOTE | 2018-02-13 18:00 | NUR ---
Blood Transfusion Complete patient tolerated well, will continue to monitor
--- NOTE | 2018-02-13 18:49 | NUR ---
Closing Note patient resting in bed, awake and alert, no signs of distress, HOB remains elevated, g-tube and IV fluids infusing, SCDs on for DVT prophylaxis, safety, isolation and aspiration precautions remain in place, will endorse to security shift supervisor nurse
--- NOTE | 2018-02-13 19:25 | NUR ---
CHANGE OF SHIFT; pt. awake, staring , moves rt arm, noted left sided weakness. on contact isolation. pt. on vent via trach @ 30% FIO2 TV 500 PS 10 PEEP 5 SIMV rate 8, with spontaneous breathing. IV infusing via PICC line on rt. upper ar. G tube feeding with Glucerna @ 45 cc/hr. on court commissioner and shows sinus rhythm. ortiz cath to OSD. on seizure precautions, seizure pads on both upper side rails.
--- NOTE | 2018-02-13 21:05 | NUR ---
NOTES: Checked g tube for any residual, only 5 cc. due meds per g tube given. Blood sugar checked 153 with sliding scale coverage. due hs care done by ACADEMIC COORDINATOR, repositioned , kept HOB elevated . RT came and checked vent and suctioned via trach with mucus secretions.
--- NOTE | 2018-02-13 22:00 | NUR ---
NOTES; sacral wound dressing intact, colostomy site checked,with loose brown stool. sequential compression stocking in place, keep both legs elevated.
--- NOTE | 2018-02-14 00:18 | NUR ---
NOTES; pt. sleeping when checked but easily awakened. condition unchanged.
[2018-02-14] MEDS: METOCLOPRAMIDE HCL 10 MG TABLET GT SCH ×5 (00:47→23:57)
[2018-02-14 01:35] VITALS: BP_SYST 136
[2018-02-14] MEDS: ALBUTEROL SULFATE 0.083% 2.5 MG/3 ML VIAL.NEB INH SCH ×4 (01:35→19:27)
[2018-02-14] MEDS: IPRATROPIUM BROM 0.5 MG/2.5 ML VIAL.NEB (ATROVENT) INH SCH ×4 (01:35→19:27)
[2018-02-14 02:06] VITALS: BP_SYST 136
[2018-02-14] MEDS: 0.45% NACL 1,000 ML IV SCH (02:46)
--- NOTE | 2018-02-14 03:15 | NUR ---
NOTES: pt. awakened and repositioned. drained colostomy with 200 cc liquid brown stool. Glucerna feeding bag changed, remain @ 45 cc/hr.
--- NOTE | 2018-02-14 04:33 | NUR ---
NOTES: pretty awake when checked, able to remove one patch on her rt. side. oral care done.
[2018-02-14 05:36] LABS: BASOPHILS % (AUTO) 0.2 % (0.0-2.0); EOSINOPHILS # (AUTO) 0.3 K/uL (0.0-0.4); EOSINOPHILS % (AUTO) 2.1 % (0.0-4.0); HEMATOCRIT 28.6 % (36-48); HEMOGLOBIN 9.3 g/dL (12.0-16.0); LYMPHOCYTES # (AUTO) 1.2 K/uL (1.0-5.5); LYMPHOCYTES % (AUTO) 8.8 % (20.5-51.5); MEAN CORPUSCULAR HEMOGLOBIN 26 pg (27-31); MEAN CORPUSCULAR HGB CONC 33 % (32-36); MEAN CORPUSCULAR VOLUME 79 fL (79.0-98.0); MONOCYTES # (AUTO) 0.8 K/uL (0.0-1.0); MONOCYTES % (AUTO) 5.6 % (1.7-9.3); NEUTROPHILS # (AUTO) 11.8 K/uL (1.8-7.7); NEUTROPHILS % (AUTO) 83.3 % (40.0-70.0); PLATELET COUNT (AUTO) 276 K/uL (130-430); RED BLOOD CELL COUNT(AUTO) 3.63 MIL/uL (4.2-6.2); RED CELL DISTRIBUTION WIDTH 21.9 % (9.0-15.0); WHITE BLOOD COUNT (AUTO) 14.1 K/uL (4.8-10.8)
[2018-02-14] MEDS: FERROUS SULFATE 300 MG/5 ML UDC GT SCH ×3 (06:27→17:53)
--- NOTE | 2018-02-14 06:30 | NUR ---
CLOSING NOTES; same settings on the vent. suctioned via trach and oral care done. IVF patent, gt tube intact and ortiz cath to OSD. colostomy in place. repositioned with wedges, sacral dressing intact. contact isolation observed. moves rt. arm a lot. on air mattress. on sinu rhythm. for further care and assistance. bed in low position.
[2018-02-14 06:46] LABS: CALCIUM 9.7 mg/dL (8.4-11.0); CREATININE 0.73 mg/dL (0.55-1.30); POTASSIUM 4.9 mmol/L (3.5-5.1)
--- NOTE | 2018-02-14 07:20 | NUR ---
endorsed pt. to incoming shift with nurse Jennifer.
--- NOTE | 2018-02-14 08:05 | NUR ---
INITIAL ROUNDS Pt resting quietly in bed with no s/s resp distress, no s/s pain or discomfort. Pt on vent via trach-vent settings verified. Pt on Contact Isolation for MRSA Nares, ESBL of Urine, MDRO & MOTOR COACH CHAUFFEUR of the Sputum. HOB elevated for aspiration precautions, seizure precautions in place, pt repositioned with pillow support & wedge support with heels off-loaded for skin care and comfort. Noted dressing to sacral area clean, dry and intact. IVF infusing well at ordered rate to MARIBEL PICC line with dressing clean, dry & intact. G-tube infusing well at ordered rate with 5 ml residual noted. BLE with SCDs in place. Side rails up x3 for safety.
[2018-02-14] MEDS: NAPH,MB-DB/K PH,MBDB 250 MG TAB GT SCH ×2 (09:16→22:05)
[2018-02-14] MEDS: FLUCONAZOLE 100 MG TABLET (DIFLUCAN) GT SCH (09:16)
[2018-02-14] MEDS: CHOLECALCIFEROL (VITAMIN D3) 2,000 UNIT TABLET GT SCH (09:16)
[2018-02-14] MEDS: LACTOBACILLUS RHAMNOSUS GG 1 CAP CAPSULE GT SCH ×2 (09:16→22:05)
[2018-02-14] MEDS: ASCORBIC ACID 500 MG TABLET GT SCH ×2 (09:16→22:05)
[2018-02-14] MEDS: CALCIUM CARBONATE/VITAMIN D3 1 TAB TABLET GT SCH ×2 (09:16→22:05)
[2018-02-14] MEDS: LACTULOSE 20 GM/30 ML UDC GT SCH ×2 (09:17→22:05)
[2018-02-14] MEDS: POTASSIUM CHLORIDE 20 MEQ/PKT PACKET GT SCH ×2 (09:17→22:05)
[2018-02-14] MEDS: PANTOPRAZOLE GRANULES PACKET 40 MG GT SCH ×2 (09:17→22:05)
[2018-02-14] MEDS: MULTIVIT-MINERALS/FERROUS GLUC 15 ML UDC GT SCH ×2 (09:17→22:05)
[2018-02-14] MEDS: CEFEPIME 1 GM in D5W 50 ML IV SCH ×2 (09:17→22:10)
[2018-02-14] MEDS: LevETIRAcetam 500 MG/5 ML UDC ORAL LIQUID GT SCH ×2 (09:19→22:05)
[2018-02-14 09:26] VITALS: BP_SYST 109
--- NOTE | 2018-02-14 09:55 | NUR ---
ROUNDS Pt given due medications as ordered, no s/s resp distress, no s/s pain or discomfort. Pt appears to be resting comfortably. Pt repositioned with pillow support and heels off-loaded for skin care. All precautions remain in place.
[2018-02-14 12:20] VITALS: BP_SYST 134
[2018-02-14] MEDS: INSULIN REGULAR, HUMAN 100 UNITS/ML, 10 ML VIAL (novoLIN R) SUBCUT PRN ×3 (12:48→22:08)
--- NOTE | 2018-02-14 13:10 | NUR ---
RT NOTES MELY CURRY AT BEDSIDE. ENDORSED CARE TO RT ANNA. Addendum: 02/14/18 at 1346 by Fiona Baca RT Amended: Links added.
--- NOTE | 2018-02-14 13:16 | NUR ---
COLOSTOMY BAG CHANGED Pt's colostomy bag was leaking a little when repositioned, old bag removed with semi-soft/liquid brown stool. New colostomy bag placed-area cleansed with warm water, stoma pink, area wiped with sure prep, Abdifatah ring placed around stoma, new colostomy bag placed. Oral care provided.
--- NOTE | 2018-02-14 14:46 | NUR ---
ROUNDS Pt resting quietly in bed with eyes open, does not track-raises right arm at times. No s/s resp distress, no s/s pain or discomfort. All precautions remain in place.
[2018-02-14 16:02] VITALS: BP_SYST 113
[2018-02-14] MEDS: ACETAMINOPHEN 650 MG/20.3 ML UDC GT PRN (16:04)
[2018-02-14] MEDS: BALSAM PERU/CASTOR OIL 60 GM OINT...G. TP SCH (16:05)
--- NOTE | 2018-02-14 16:20 | NUR ---
WOUND CARE Dressing and Tender wets removed from sacral wound. Wound cleansed with normal saline, Venelex placed thickly onto wound bed, Hydrogel applied to area, moisture barrier cream applied to periwound area, 2.2 tender wets x 2 placed into wound bed and tunneling area, wound covered with Sacral foam dressing. Noted wound bed 90% pink tissue, 10 % yellow tissue, moderate amount of drainage, no odor, no necrotic tissue. Pt given Tylenol for pain. Pt repositioned with wedges and heels off-loaded for skin care. Oral care provided, suctioned via mouth and trach-noted thick whitish sputum. All precautions remain in place.
--- NOTE | 2018-02-14 19:27 | NUR ---
CLOSING NOTE Pt resting quietly in bed with no s/s resp distress, no s/s pain or discomfort. Contact Isolation precautions maintained throughout shift. IVF infusing well at ordered rate to MARIBEL PICC line. Colostomy with small amount of brown stool. Tube feeding infusing well at ordered rate. Aspiration, skin and safety precautions remain in place.
--- NOTE | 2018-02-14 19:47 | NUR ---
OPENING NOTES Pt and endorsement received from day shift nurse Jennifer. Pt is resting in bed with both eyes closed. With visible chest rise and fall noted. Pt on mechanical vent with settings of SIMV:8, TV:500, FiO2:30%, Peep:5. Pt on PICC line on MARIBEL with 1/2NS at 30ml/hr and infusing well. Pt on G-Tube feeding with Glucerna 1.2 at 45ml/hr. Pt on ortiz catheter with yellow urine noted in the bag. No signs of acute distress or SOB noted. Aspiration, seizure and safety precautions in place and call light with pt. Will continue to monitor.
[2018-02-14 22:02] VITALS: BP_SYST 119
--- NOTE | 2018-02-14 22:15 | NUR ---
MED PASS Pt is awake while lying in bed. Assessed for bowel sounds and is active upon auscultation and no residual upon aspiration. All G-tube meds were given and free water of 100ml was given. Pt tolerated well. Maintained on aspiration precautions with head elevated at 60 degrees. Suctioning done as needed. No signs of acute distress noted. Safety and seizure precautions in place and call light with pt. Will continue to monitor. Addendum: 02/15/18 at 0307 by Angie Carlos RN Oral care rendered as well.
[2018-02-15] VITALS (7 sets, daily range): BP systolic 111–146
--- NOTE | 2018-02-15 00:04 | NUR ---
SPOKE TO PT'S DAUGHTER MACI Spoke to pt's daughter Maci over the phone, asking how her mother is doing and was able to address her concerns with the best of my knowledge and information about the pt. Maci asked pt's WBC and told her it's 14.1 and mechanical vent setting of SIMV of 8.
--- NOTE | 2018-02-15 01:00 | NUR ---
WOUND CARE/G-TUBE FEEDING CHANGED Pt's chux were wet. Assisted VIOLETA Cuellar in cleaning and changing the pt. Changed sacral dressing per wound care guidelines. Positioned pt comfortably. G-Tube Feeding was changed and infusing well. No signs of acute distress noted. Suctioning done as needed. Aspiration, seizure and safety precautions maintained while doing the procedure. Will continue to monitor. Addendum: 02/15/18 at 0306 by Angie Carlos RN Oral care rendered as well.
[2018-02-15] MEDS: ALBUTEROL SULFATE 0.083% 2.5 MG/3 ML VIAL.NEB INH SCH ×4 (01:07→19:53)
[2018-02-15] MEDS: IPRATROPIUM BROM 0.5 MG/2.5 ML VIAL.NEB (ATROVENT) INH SCH ×4 (01:07→19:53)
--- NOTE | 2018-02-15 03:07 | NUR ---
RESTING Pt is resting in bed with both eyes closed. With visible chest rise and fall noted. No signs of acute distress or SOB noted. Call light with pt. Aspiration, seizure and safety precautions in place. Will continue to monitor.
[2018-02-15] MEDS: 0.45% NACL 1,000 ML IV SCH (04:16)
[2018-02-15] MEDS: METOCLOPRAMIDE HCL 10 MG TABLET GT SCH ×3 (06:37→17:09)
[2018-02-15] MEDS: FERROUS SULFATE 300 MG/5 ML UDC GT SCH ×3 (06:37→17:09)
[2018-02-15] MEDS: INSULIN REGULAR, HUMAN 100 UNITS/ML, 10 ML VIAL (novoLIN R) SUBCUT PRN ×3 (06:38→22:00)
--- NOTE | 2018-02-15 06:50 | NUR ---
CLOSING NOTES Pt is resting in bed with both eyes closed. With visible chest rise and fall noted. Mechanical vent settings maintained and no changes were made. No signs of acute distress or SOB noted. Suctioning done as needed. IVF and G-tube feeding are infusing well. All needs attended throughout the shift. Safety, aspiration and seizure precautions in place and call light with pt. Will endorse to day shift nurse.
[2018-02-15 06:52] LABS: BASOPHILS % (AUTO) 0.2 % (0.0-2.0); EOSINOPHILS # (AUTO) 0.3 K/uL (0.0-0.4); EOSINOPHILS % (AUTO) 2.1 % (0.0-4.0); HEMATOCRIT 27.4 % (36-48); HEMOGLOBIN 8.9 g/dL (12.0-16.0); LYMPHOCYTES # (AUTO) 1.1 K/uL (1.0-5.5); LYMPHOCYTES % (AUTO) 8.6 % (20.5-51.5); MEAN CORPUSCULAR HEMOGLOBIN 26 pg (27-31); MEAN CORPUSCULAR HGB CONC 33 % (32-36); MEAN CORPUSCULAR VOLUME 80 fL (79.0-98.0); MONOCYTES # (AUTO) 0.8 K/uL (0.0-1.0); NEUTROPHILS # (AUTO) 10.6 K/uL (1.8-7.7); PLATELET COUNT (AUTO) 244 K/uL (130-430); RED BLOOD CELL COUNT(AUTO) 3.43 MIL/uL (4.2-6.2); RED CELL DISTRIBUTION WIDTH 21.7 % (9.0-15.0); WHITE BLOOD COUNT (AUTO) 12.8 K/uL (4.8-10.8)
[2018-02-15 06:58] LABS: ALBUMIN 1.8 g/dL (3.4-4.8); CALCIUM 9.6 mg/dL (8.4-11.0); CREATININE 0.79 mg/dL (0.55-1.30); POTASSIUM 4.9 mmol/L (3.5-5.1); TOTAL BILIRUBIN 0.3 mg/dL (0.0-1.0)
--- NOTE | 2018-02-15 07:30 | NUR ---
AM rounds patient resting in bed, awake, is not following commands, can track somewhat with eyes, re-oriented the patient, assessment complete, Trach to vent, vent settings SIMV 8, TV 500, Fio2 30% and peep of 5, PICC line to the right upper arm, intact and infusing well, G Tube in place, dressing to insertion site C,D,I, colostomy in place, draining brown liquid stool at this time, Hernandez Catheter in place, draining to gravity, SCD's in place, continuing to monitor the patient, bed in lowest position, three side rails up, bed alarm on, fall, aspiration and isolation precautions in place.
[2018-02-15] MEDS: LACTULOSE 20 GM/30 ML UDC GT SCH ×2 (09:00→21:53)
[2018-02-15] MEDS: BALSAM PERU/CASTOR OIL 60 GM OINT...G. TP SCH (09:00)
[2018-02-15] MEDS: PANTOPRAZOLE GRANULES PACKET 40 MG GT SCH ×2 (09:55→21:54)
[2018-02-15] MEDS: ASCORBIC ACID 500 MG TABLET GT SCH ×2 (09:59→21:54)
[2018-02-15] MEDS: CHOLECALCIFEROL (VITAMIN D3) 2,000 UNIT TABLET GT SCH (09:59)
[2018-02-15] MEDS: CALCIUM CARBONATE/VITAMIN D3 1 TAB TABLET GT SCH ×2 (09:59→21:54)
[2018-02-15] MEDS: POTASSIUM CHLORIDE 20 MEQ/PKT PACKET GT SCH ×2 (09:59→21:54)
[2018-02-15] MEDS: LevETIRAcetam 500 MG/5 ML UDC ORAL LIQUID GT SCH ×2 (10:00→21:53)
--- NOTE | 2018-02-15 10:00 | NUR ---
Medications/Dr. Baig rounds patient resting in bed, RT made Dr. Baig aware of increased respirations but patient is not in apparent distress. No residual output from G tube at this time, medications administered, patient tolerated well, PICC line is intact and infusing well, continuing to monitor the patient, bed in lowest position, three side rails up, bed alarm on, fall, aspiration, and isolation precautions in place.
[2018-02-15] MEDS: LACTOBACILLUS RHAMNOSUS GG 1 CAP CAPSULE GT SCH ×2 (10:01→21:54)
[2018-02-15] MEDS: MULTIVIT-MINERALS/FERROUS GLUC 15 ML UDC GT SCH ×2 (10:01→21:54)
[2018-02-15] MEDS: CEFEPIME 1 GM in D5W 50 ML IV SCH (10:02)
[2018-02-15] MEDS: NAPH,MB-DB/K PH,MBDB 250 MG TAB GT SCH ×2 (10:16→21:54)
--- NOTE | 2018-02-15 10:18 | NUR ---
@1010 CHANGED TO AC14 DUE TO PT TACHYPNEIC [id number]. SPO2 96%, HR 91. WILL CONTINUE TO MONITOR PT.
--- NOTE | 2018-02-15 11:00 | NUR ---
Discharge Planning: DCP spoke to Adalgisa at [facility] (f [phone] p [phone]) DCP faxed pt referral, Adalgisa will check insurance and set up a assessment bed side with RT. DCP spoke to Nancy from [employer] (f [phone] p [phone]) they are not HMO providers, but Nancy will verify Medicare part B for coverage. DCP to follow up Addendum: 02/15/18 at 1107 by Drea LU Adalgisa at [facility] (f [phone] p [phone]) will email RT to set up assessment bed side. Addendum: 02/15/18 at 1550 by Drea Dangelo DP ALISON followed up, Adalgisa from [facility] (f [phone] p [phone]); Amanda checked with marli to give an update for auth from insurance, the marli was on the phone DCP left message.
--- NOTE | 2018-02-15 11:45 | NUR ---
Rounds/Blood glucose/Medications patient in bed, breathing is even and unlabored, blood glucose checked and insulin coverage provided per MD orders, no residual output from G tube at this time, medications and water flush administered at this time, patient is tolerating well, no other needs at this time, bed in lowest position, three side rails up, bed alarm on, fall, aspiration, isolation and seizure precautions in place.
--- NOTE | 2018-02-15 11:57 | NUR ---
Case mgt: Calling [address] [phone] to see if they utilize contracted DME vendors. Pt has Medicare B, however, there is 20% co-pay under part B so I am calling complex case mgt at [facility] to check contracted vendors since [facility] declined accepting pt and [facility] indicates 20% co-pay and they don't take on HMO pts. Have been on hold x [address] minutes with [address]--the number for Shama giving recorded message with main menu voice prompts- LUCILA CARMONA
[2018-02-15 12:06] LABS: NEUTROPHILS % (AUTO) 83.1 % (40.0-70.0)
--- NOTE | 2018-02-15 12:28 | NUR ---
Case mgt: Tung Sesay at [facility] [phone] [id number], she said to try [facility], [facility], or [facility] at [phone]--per Shama, pt will be regenerating her Medicare days with new trach dx but pt has [facility] also as secondary.
--- NOTE | 2018-02-15 15:32 | NUR ---
RN rounds patient resting in bed, eyes closed, breathing is even and unlabored, no signs of distress, receiving a breathing treatment at this time as well, continuing to monitor, bed in lowest position, three side rails up, bed alarm on, fall, aspiration, isolation and seizure precautions in place.
--- NOTE | 2018-02-15 16:19 | NUR ---
Case mgt: Rec'd voice message from [employer] indicating [employer] can manage trach supplies or [employer]--no phone# for either company was given on message. LUCILA RN
[2018-02-15] MEDS: EPOETIN ALFA 10,000 UNITS/ML VIAL SUBCUT SCH (17:09)
--- NOTE | 2018-02-15 17:15 | NUR ---
Medications/RN rounds patient resting in bed, awake, no signs of distress, blood glucose checked, no insulin coverage per MD orders, no residual output from G tube at this time, medications administered, patient tolerated well, turned and repositioned patient with SYSTEM ADMINISTRATION ADVISOR, patient tolerated well, continuing to monitor, bed in lowest position, three side rails up, bed alarm on, fall, aspiration, isolation and seizure precautions in place.
--- NOTE | 2018-02-15 18:29 | NUR ---
Closing note patient resting in bed, eyes closed, breathing is even and unlabored, no signs of distress, all needs met, will endorse report to NOC shift nurse, bed in lowest position, three side rails up, bed alarm on, bed close to nursing station, fall, aspiration, isolation and seizure precautions in place.
--- NOTE | 2018-02-15 20:00 | NUR ---
Initial PM Note Pt is awake and non-verbal. Pt tracks with eyes and moves RUE only. No respiratory distress noted. Pt has Tracheostomy connected to vent and pt is tolerating vent settings well. GTF of Glucerna 1.2 is in progress at 45ml/hr with residual of 2ml. LLQ abdominal colostomy bag is intact with small amount of watery brownish stool. I/2NS is infusing well via MARIBEL PICC at 30ml/hr. Fall, safety and seizure precautions are in place. Skin is warm and dry to touch. No signs or symptoms of hypoglycemia or hyperglycemia noted. Hernandez cath is draining clear yellowish urine.
--- NOTE | 2018-02-15 22:00 | NUR ---
Blood Sugar Accucheck 156 and 2 units Regular Insulin given SQ. Skin remains warm and dry to touch. Pt is tolerating GTF and vent settings well. IVF is infusing well via MARIBEL PICC. No acute distress noted at this time.
--- NOTE | 2018-02-16 | NUR ---
Rounds Pt is awake and resting quietly in bed. Pt is tolerating GT Feeding Vent settings well. Fall, safety and seizure precautions are in place.
[2018-02-16 00:33] VITALS: BP_SYST 153
[2018-02-16] MEDS: METOCLOPRAMIDE HCL 10 MG TABLET GT SCH ×4 (00:38→17:35)
--- NOTE | 2018-02-16 01:00 | NUR ---
TUBE FEEDING BAG CHANGED : TUBE FEEDING BAG AND TUBING CHANGED , GT FLUSHED WELL ; PT IS TOLERATING FEEDING .
[2018-02-16] MEDS: ALBUTEROL SULFATE 0.083% 2.5 MG/3 ML VIAL.NEB INH SCH ×4 (01:13→19:53)
[2018-02-16] MEDS: IPRATROPIUM BROM 0.5 MG/2.5 ML VIAL.NEB (ATROVENT) INH SCH ×4 (01:13→19:53)
--- NOTE | 2018-02-16 03:00 | NUR ---
Rounds Pt is resting in bed without any distress noted. Respirations non-labored. IVF and GTF are infusing well.
[2018-02-16] MEDS: 0.45% NACL 1,000 ML IV SCH (04:26)
[2018-02-16] MEDS: BALSAM PERU/CASTOR OIL 60 GM OINT...G. TP SCH (04:28)
--- NOTE | 2018-02-16 04:30 | NUR ---
Wound Care Old foam dressing and 2 tender wets (2.2) were removed from sacral wound. Moderate amount of pinkish drainage noted. Wound bed is 90% pinkish and 10% yellowish tissue. No necrotic area or odor noted. Wound was cleansed with normal saline, Venelex ointment was placed thickly onto the wound bed, followed by Hydrogel. Moisture barrier cream was applied to periwound area, 2.2 tender wets (2) were placed into wound bed and tunneling area. Wound was then covered with Sacral foam dressing. Pt tolerated dressing change well.
--- NOTE | 2018-02-16 05:15 | NUR ---
G Tube Site Dressing and Colostomy Bag Changes G tube site dressing was changed after old dressing was removed. No drainage or odor noted at the site. G tube site was cleansed with normal saline and pat dried. 2 drain sponges (4X4) were applied to G tube site and secured with tape. Old colostomy bag was removed and colostomy stoma looked pinkish. Skin around colostomy stoma was cleansed with mild soap and water and then pat dried. New colostomy bag was applied to the stoma.
[2018-02-16] MEDS: FERROUS SULFATE 300 MG/5 ML UDC GT SCH ×3 (06:02→17:35)
--- NOTE | 2018-02-16 06:40 | NUR ---
Closing Note Pt is awake and resting comfortably in bed. Condition remains unchanged. GT Feeding and IVF are infusing well. Pt is tolerating Vent settings and G Tube feeding well. All pt's needs were attended to. Pt was suctioned both orally and via Tracheostomy as needed. Side to side turning was done as ordered and HOB is up 30 degrees to prevent aspiration. No fall or injury noted this shift. Will endorse to day shift nurse. Addendum: 02/16/18 at 0655 by Birdie Yadav RN Accucheck 139 this AM and no Insulin coverage needed. Skin remains warm and dry to touch.
--- NOTE | 2018-02-16 07:20 | NUR ---
OPENING NOTES At initial assessment, patient is sleeping in bed with both eyes closed. Breathing even and unlabored, patient on mechanical vent with settings of SIMV:8, TV:500, FiO2:30%, Peep:5. Pt on PICC line on MARIBEL with 1/2NS at 30ml/hr and infusing well. Pt on G-Tube feeding with Glucerna 1.2 at 45ml/hr. Pt on ortiz catheter with yellow urine noted in the bag. Aspiration, seizure, fall and safety precautions in place, bed low and locked, alarm on, side rails up x3, seizure pads present, call light within reach, will continue to monitor.
[2018-02-16 08:00] VITALS: BP_SYST 113
[2018-02-16] MEDS: NAPH,MB-DB/K PH,MBDB 250 MG TAB GT SCH ×2 (09:43→21:30)
[2018-02-16] MEDS: POTASSIUM CHLORIDE 20 MEQ/PKT PACKET GT SCH ×2 (09:43→21:30)
[2018-02-16] MEDS: LACTOBACILLUS RHAMNOSUS GG 1 CAP CAPSULE GT SCH ×2 (09:44→21:30)
[2018-02-16] MEDS: LACTULOSE 20 GM/30 ML UDC GT SCH ×2 (09:44→21:31)
[2018-02-16] MEDS: ASCORBIC ACID 500 MG TABLET GT SCH ×2 (09:44→21:30)
[2018-02-16] MEDS: CHOLECALCIFEROL (VITAMIN D3) 2,000 UNIT TABLET GT SCH (09:44)
[2018-02-16] MEDS: CALCIUM CARBONATE/VITAMIN D3 1 TAB TABLET GT SCH ×2 (09:44→21:30)
[2018-02-16] MEDS: MULTIVIT-MINERALS/FERROUS GLUC 15 ML UDC GT SCH ×2 (09:44→21:31)
[2018-02-16] MEDS: LevETIRAcetam 500 MG/5 ML UDC ORAL LIQUID GT SCH ×2 (09:45→21:31)
[2018-02-16] MEDS: PANTOPRAZOLE GRANULES PACKET 40 MG GT SCH ×2 (09:45→21:30)
--- NOTE | 2018-02-16 10:00 | NUR ---
Wound Care Old dressings and 2 tenderwets were removed from sacral wound. Moderate amount of pinkish drainage noted. Wound bed is 90% pinkish and 10% yellowish tissue. No necrotic area or odor noted. Cleansed wound with normal saline, applied Venelex ointment onto the wound bed, followed by Hydrogel. Moisture barrier cream was applied to periwound area, 2.2 tender wets (2) were placed into wound bed and tunneling area. Covered wound with Sacral foam dressing. Pt tolerated dressing change well.
[2018-02-16 11:05] VITALS: BP_SYST 113
--- NOTE | 2018-02-16 11:28 | NUR ---
rt notes 1128 did vent check and trach care on pt 103A. noticed redness and pulling of skin on trach site. Asked and notified kristine mcmillan and full charge bookkeeper zeny when the will surgeon remove the suture. They said no definite time/date yet. compliance attorney zeny and kristine mcmillan aware of the trach site situation. May have to ask bow maker Dale. will continue to monitor pt.
--- NOTE | 2018-02-16 11:30 | NUR ---
AT BEDSIDE Dr. Valentine at bedside to examine patient.
[2018-02-16] MEDS: INSULIN REGULAR, HUMAN 100 UNITS/ML, 10 ML VIAL (novoLIN R) SUBCUT PRN ×3 (11:52→21:34)
--- NOTE | 2018-02-16 13:25 | NUR ---
Discharge Planning: ALISON spoke with Adalgisa at [facility] (f [phone] p [phone]) per Adalgisa insurance is transitioning over so there is no authorizations being process. I [facility] went forward with assessing it would be at patients cost. SARWATP made CM aware.
--- NOTE | 2018-02-16 13:38 | NUR ---
ROUNDS Patient is awake, no s/s of acute distress noted. Trach vent settings tolerating, no respiratory distress. IVF infusing as ordered. GTube feeding tolerating well. Safety, aspiration, seizure, and fall precautions in place, call light within reach. Will continue to monitor.
[2018-02-16 15:37] VITALS: BP_SYST 116
--- NOTE | 2018-02-16 16:30 | NUR ---
WOUND RE-EVALUATION: Wound VAC ordered by Dr. Valentine. Patient received in a Salvo Bed with an Isoflex ENE mattress with low air-loss therapy, awake, alert, nonverbal. Patient is unable to turn in bed independently. Jeff Score is a 12. Intrinsic factors that delay wound healing: Diabetes Mellitus, Anemia. Extrinsic factors that delay wound healing: Immobility. Microbiology: Urine culture results positive for Escherichia coli (ESBL, MDRO). MRSA screen results positive. Endotracheal sputum results positive for Acinetobacter Baumannii Haemol (MDRO, ANSWERING SERVICE AGENT). Wound Assessment: 1. Sacral-Coccygeal area: Pressure ulcer, present on admission. Wound bed has 60% yellow tissue, 30% pink tissue, 10% black tissue. No odor, scant sanguineous drainage. Dark discolored tissue present on surrounding tissue. Wound measures 8.2 cm 5.0 cm x 3.4 cm. Undermining present from 11-1 o-clock, deepest 1.1 cm at 12 o'clock. Recommend: Cleanse wound with normal saline. Place SurePrep onto bowen-wound and surrounding tissue. Apply Venelex ointment onto wound bed. Place black Granufoam dressing into wound cavity. Cover with VAC drape. Make a bridge: Apply SurePrep to skin from VAC dressing to a non-bony portion of the hip. Cut a small hole into VAC dressing and run a piece of black Granufoam from VAC dressing to a non-bony portion of the hip. Attach suction attachment. Cover bridged area of Granufoam with VAC drape. Run wound VAC at 125 mmHg, continuous. First wound VAC dressing change will be on Tuesday (02/20/18), then change wound VAC dressing every Tuesday/Tuesday/Tuesday, and as needed for dressing soiling or dislodgement. Also recommend: Reposition patient side to side only every 2 hours with pillow support (place one pillow underneath trunk and one pillow underneath pelvic area). Off-load pressure areas with pillows for pressure re-distribution. Offload, elevate and float bilateral heels with one pillow lengthwise under each extremity at all times. Perform skin care and monitor skin integrity Q shift. Use moisture barrier cream on buttocks and other moisture susceptible areas QID and as needed for soiling. Maintain patient on a low air-loss mattress.
--- NOTE | 2018-02-16 16:59 | NUR ---
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 Coli, Hx CVA Subjective Information Pt remains +unresponsive w/ TF infusing Glucerna 1.5. Per nursing notes, pt has been tolerating TF well. Per EMR, TF Intakes: 540 ml 02/16/18. Residuals: 2 ml 02/15/17. Abd is soft w/ active bowel sounds. Output (stool): 250 ml 02/16/18. Pt may benefit from an increase in nutrition support to aid in possible hypermetabolic state. Current Diet Order/Nutrition Support Glucerna 1.5 at 45 ml/hr, Marques BID, Prosource TID Free Water Flush: 100 q 4 via GT x4 days Patient/Significant Other Unable To Verbalize Education Provided Not Indicated Pertinent Medications neutraphos, reglan, zofran, VIT D-3, protonix, culturelle, centrum, zinc sulfate, lactulose, os-shorty, VIT C, ferrous sulfate, SSI, tums Pertinent Labs POC BG 175 H : BG 151 H, BUN 37 H, H/H 8.9 L/27.4 L, WBC 12.8 H, ALB 1.8 L Height (Feet 5 feet Height (Inches) 3.00 inches Weight (Pounds) 152 pounds (01/17/18) BED SCALE WT: 186.5 lb (01/23/18); 168 lb (02/16/18) -- may be inaccurate d/t blankets/pillows Weight (Calculated Kilograms) 68.681890 kilograms Patient Weight 68.946 kg Body Mass Index 26.92 kg/m2 %IBW 133 [place]/Adjusted Body Weight IBW: 115 lb, 52 kg. Adj IBW (obesity): 124 lb, 56 kg Recent Weight Change No Weight Status Overweight Last BM 02/11/18 Food Allergies No Usual Diet At Home Unable to assess per EMR Skin Integrity Comment: Jeff scale: 12; per Powerhouse Mechanic Supervisor note 02/16/18: 1. Sacral-Coccygeal area: Pressure ulcer, present on admission. Wound bed has 60% yellow tissue, 30% pink tissue, 10% black tissue. No odor, scant sanguineous drainage. Dark Bilateral generalized non-pitting edema Estimated Energy Expenditure (kcals/day) 1222-8028 kcal/day (30-35 kcal/kg Adj IBW for sepsis, wound healing) Estimated Protein Required (g/day) 67-112 gm/day (1.2-2 gm/kg Adj IBW for sepsis, wound healing) Estimated Fluid Required (l/day) Per MD (ARF) Problem/Etiology/Signs/Symptoms Inadequate enteral nutrition related to metabolic demands as evidenced by current TF regimen meets 79% of estimated caloric needs and 94% of estimated protein needs. *improving Expected Outcomes/Goals - Monitor tolerance to EN support w/ goal of pt meeting at least 85% of estimated nutritional needs, labs trending WNL, normal GI function, and skin integrity/wt maintenance Dietitian Recommendations * Recommend Glucerna 1.5 at 45 ml/hr, Marques BID, Prosource TID, Free Water Flush: 100 ml Q4h via GT Provides: 1980 kcal/day, 139 gm protein/day, and 1420 ml free water/day Meets: 101% of upper end of estimated caloric needs and 124% of upper end of estimated protein needs Follow Up Moderate Risk: F/U in 3-5 days
--- NOTE | 2018-02-16 17:10 | NUR ---
Dietitian Recommendations * Recommend continuing Glucerna 1.5 at 45 ml/hr, Marques BID, Prosource TID, Free Water Flush: 100 ml Q4h via GT Provides: 1980 kcal/day, 139 gm protein/day, and 1420 ml free water/day Meets: 101% of upper end of estimated caloric needs and 124% of upper end of estimated protein needs LP, RD Please refer to Nutrition F/U for details.
--- NOTE | 2018-02-16 18:30 | NUR ---
CLOSING NOTE Patient is awake, in stable condition. Breathing even and unlabored. Tolerating vent settings. Gtube in place, patent and intact, GTube feeding running as ordered and tolerating well. PICC line patent and intact, IVF infusing as ordered. Colostomy in place, brown loose output noted. F/C in place with visible urine output. Safety, aspiration, contact, seizure, and fall precautions in place. All needs met and anticipated throughout the shift. Bed is in lowest position and locked, alarm on, seizure pads present, side rails up x3, call light within reach. Will endorse plan of care. Addendum: 02/16/18 at 1854 by Karely Corral RN ADDENDUM Wound vac in place.
--- NOTE | 2018-02-16 19:20 | NUR ---
OPENING NOTE Received report from Luisa. Patient resting in bed with eyes closed. Breathing unlabored and even, trach to vent. Patient tolerating well. No signs of distress, no needs at this time. Fall, safety, aspiration, seizure, contact precautions in place. Bed in lowest position, brake on, alarm on, call light within reach. IVF infusing as ordered. G-tube feeding infusing as ordered. Hernandez catheter draining via gravity as ordered. Colostomy bag in place LLQ of abd. Wound vac placed today by RN and wound care nurse. [place]-tinged drainage noted. Will continue to monitor. Addendum: 02/17/18 at 0501 by Genet Mina RN Received report from vickie Cali
[2018-02-16 20:00] VITALS: BP_SYST 129
--- NOTE | 2018-02-16 20:00 | NUR ---
Free water flush of 100cc. Zero residual noted beforehand.
--- NOTE | 2018-02-16 20:12 | NUR ---
Oral care provided.
--- NOTE | 2018-02-16 21:34 | NUR ---
Med pass. Blood sugar 104. No insulin coverage need per PRN insulin sliding scale.
--- NOTE | 2018-02-16 23:34 | NUR ---
Patient resting in bed with eyes closed. Breathing unlabored and even, trach to vent. Patient tolerating well. No signs of distress, no needs at this time. Fall, safety, aspiration, seizure, contact precautions in place. Bed in lowest position, brake on, alarm on, call light within reach. IVF infusing as ordered. G-tube feeding infusing as ordered. Hernandez catheter draining via gravity as ordered. Colostomy bag in place LLQ of abd. Will continue to monitor.
--- NOTE | 2018-02-17 00:16 | NUR ---
Patient repositioned with pillow support. Trach suctioning provided. Addendum: 02/17/18 at 0017 by Genet Mina RN Oral care also provided.
--- NOTE | 2018-02-17 00:19 | NUR ---
Oral care provided.
--- NOTE | 2018-02-17 00:23 | NUR ---
Free water flush of 100cc. Zero residual noted beforehand.
[2018-02-17 00:35] VITALS: BP_SYST 146
--- NOTE | 2018-02-17 01:00 | NUR ---
New g-tube feeding hung
[2018-02-17] MEDS: METOCLOPRAMIDE HCL 10 MG TABLET GT SCH ×4 (01:11→18:12)
[2018-02-17] MEDS: ALBUTEROL SULFATE 0.083% 2.5 MG/3 ML VIAL.NEB INH SCH ×4 (01:51→20:32)
[2018-02-17] MEDS: IPRATROPIUM BROM 0.5 MG/2.5 ML VIAL.NEB (ATROVENT) INH SCH ×4 (01:51→20:32)
--- NOTE | 2018-02-17 04:13 | NUR ---
Free water flush of 100cc. Zero residual noted beforehand.
[2018-02-17] MEDS: FERROUS SULFATE 300 MG/5 ML UDC GT SCH ×3 (06:17→18:12)
[2018-02-17] MEDS: INSULIN REGULAR, HUMAN 100 UNITS/ML, 10 ML VIAL (novoLIN R) SUBCUT PRN ×4 (06:20→21:50)
--- NOTE | 2018-02-17 06:23 | NUR ---
Med pass. Blood sugar 136. No insulin coverage needed per PRN insulin sliding scale.
[2018-02-17] MEDS: 0.45% NACL 1,000 ML IV SCH (06:28)
--- NOTE | 2018-02-17 06:29 | NUR ---
New IVF hung
--- NOTE | 2018-02-17 07:25 | NUR ---
CLOSING NOTE Patient resting in bed with eyes closed. Breathing unlabored and even, trach to vent. Patient tolerating well. No signs of distress, no needs at this time. Fall, safety, aspiration, seizure, contact precautions in place. Bed in lowest position, brake on, alarm on, call light within reach. IVF infusing as ordered. G-tube feeding infusing as ordered. Hernandez catheter draining via gravity as ordered. Colostomy bag in place LLQ of abd. Day shift nurse to change PICC line dressing today. Endorsed cares to day shift nurse.
--- NOTE | 2018-02-17 07:37 | NUR ---
OPENING NOTES At initial assessment, patient is asleep comfortably in bed. Breathing even and unlabored, patient on mechanical vent with settings of AC 14, TV 500, FiO2 30%, Peep 5. PICC line on MARIBEL with 1/2NS at 30ml/hr and infusing well. GTube in place, patent and intact, receiving Glucerna 1.2 at 45ml/hr and tolerating well. F/C in place, patent and intact, with visible urine output. Safety, aspiration, fall, contact, and seizure precautions in place, bed low and locked, alarm on, side rails up x3, seizure pads present, call light within reach, will continue to monitor.
[2018-02-17 08:00] VITALS: BP_SYST 123
[2018-02-17] MEDS: POTASSIUM CHLORIDE 20 MEQ/PKT PACKET GT SCH ×2 (09:39→21:48)
[2018-02-17] MEDS: CALCIUM CARBONATE/VITAMIN D3 1 TAB TABLET GT SCH ×2 (09:39→21:48)
[2018-02-17] MEDS: LACTOBACILLUS RHAMNOSUS GG 1 CAP CAPSULE GT SCH ×2 (09:39→21:48)
[2018-02-17] MEDS: NAPH,MB-DB/K PH,MBDB 250 MG TAB GT SCH ×2 (09:39→21:48)
[2018-02-17] MEDS: ASCORBIC ACID 500 MG TABLET GT SCH ×2 (09:39→21:48)
[2018-02-17] MEDS: CHOLECALCIFEROL (VITAMIN D3) 2,000 UNIT TABLET GT SCH (09:39)
[2018-02-17] MEDS: PANTOPRAZOLE GRANULES PACKET 40 MG GT SCH ×2 (09:39→21:48)
[2018-02-17] MEDS: MULTIVIT-MINERALS/FERROUS GLUC 15 ML UDC GT SCH ×2 (09:39→21:48)
[2018-02-17] MEDS: LACTULOSE 20 GM/30 ML UDC GT SCH ×2 (09:39→21:48)
[2018-02-17] MEDS: BALSAM PERU/CASTOR OIL 60 GM OINT...G. TP SCH (09:40)
[2018-02-17] MEDS: LevETIRAcetam 500 MG/5 ML UDC ORAL LIQUID GT SCH ×2 (09:40→21:48)
--- NOTE | 2018-02-17 10:34 | NUR ---
Discharge Planning: MORGAN spoke with admitting department and confirmed that pt's health plan is now "[facility] Promise Plan" the plan is still under Care 1st per admitting. The pt's member number has changed and has been updated on pt's facesheet. MORGAN has faxed pt's facesheet to [facility] ([phone]). MORGAN spoke with Adalgisa at [facility] who confirmed that fax was received and the information was sent to the [facility] billing department to confirm if services can be arranged. Adalgisa will call MORGAN back with an update once billing department confirms everything. Addendum: 02/17/18 at 1414 by Sudha Keith LCSW MORGAN received message from Adalgisa at [facility] who states that [facility] is not contracted with [facility] and cannot service the patient. Addendum: 02/17/18 at 1435 by Sudha Keith LCSW [facility] has contacted [facility] ([phone]) to see if they could service pt for a home ventilator; Jada stated that they work with Medicare and [employer] only. [facility] has faxed pt's records to have [facility] verify pt's insurance. Addendum: 02/17/18 at 1637 by Sudha Keith LCSW [facility] received call from Clyde at [employer] ([phone]) who states that they can accept pt for home ventilator services. Clyde has faxed over a detailed order for the physician to sign. [facility] has given the detailed order to the CM who will be working Tuesday and Tuesday to get signed by the physician and then faxed back to [facility].
--- NOTE | 2018-02-17 12:25 | NUR ---
ROUNDS Patient is resting with eyes closed, no seizure activity noted. Vent settings tolerating well, breathing even and unlabored. GTube feeding tolerating well. Colostomy in place noted brown loose output. Safety, aspiration, contact, seizure, and fall precautions in place, call light within reach. Will continue to monitor.
[2018-02-17 12:40] VITALS: BP_SYST 137
--- NOTE | 2018-02-17 12:53 | NUR ---
PAGED Dr. Rodriguez paged regarding when MD will come and see patient for sutures on trach removal, awaiting for call back.
--- NOTE | 2018-02-17 13:53 | NUR ---
AT BEDSIDE Dr. Valentine seen and examined patient at bedside.
[2018-02-17 14:35] VITALS: BP_SYST 112
--- NOTE | 2018-02-17 14:44 | NUR ---
ROUNDS Patient is sleeping, no s/s of acute distress/discomfort. Trach to vent and no respiratory distress noted. Tolerating G-Tube feeding. No seizure activity noted. Wound vac running. Contact, safety, fall, aspiration, and seizure precautions observed, call light within reach, will continue to monitor.
--- NOTE | 2018-02-17 16:15 | NUR ---
ROUNDS Patient is awake, no acute distress noted, breathing even and unlabored. GTube feeding running as ordered and tolerating well. Safety, seizure, contact, aspiration and fall precautions in place, call light within reach, will continue to monitor.
[2018-02-17] MEDS: EPOETIN ALFA 10,000 UNITS/ML VIAL SUBCUT SCH (18:13)
--- NOTE | 2018-02-17 18:30 | NUR ---
DR. RODRIGUEZ NO CALL BACK No call back received from Dr. Rodriguez today.
--- NOTE | 2018-02-17 18:32 | NUR ---
KIERRA DC PLANNING: CONTACT w/SHARITA FENG CM SPOKE WITH ROCR/SHARITA TO DISCUSS ANTICIPATED UNDERSTANDING OF Pt's CARE NEEDS AT HOME ROCR/SHARITA WISHES FOR Pt TO BE DC'd TO HOME WHEN MEDICALLY STABLE AND DME CAN BE ARRANGED. DTR/SHARITA STATED SHE HAS BEEN SICK WITH BAD COLD/FLU X 1 WEEK AND HAS NOT BEEN ABLE TO VISIT Pt. DTR STATED SHE IS FAMILIAR WITH Pt's CARE NEEDS THEY RELATE TO: COLOSTOMY CARE (Pt HAS HAD COLOSTOMY SINCE 05/2017) WOUND VAC USE AND/OR SACRAL WOUND CARE G-TUBE CARE & BOLUS FEEDINGS (Pt HAS HAD G-TUBE SINCE 2016 HAS HAD TOTAL OF 4 STROKES)NEED TO DETERMINE IF Pt WILL NECESSITATE CONTINUOUS DRIP FDGS OR BOLUS FDGS; WITH TRAINING & DME NEEDED IF FDGS WILL BE CONTINOUS DRIP. MANJARREZ CATH CARE (X 2 YRS FOR NEUROGENIC BLADDER), HAS CATHETER CHANGED Q 3 WKS PER UROLOGIST, HH NURSE, OR IN HOSPITAL DIABETES MGMT - BS CHECKED X 4 PER DAY, USES FREESTYLE LIGHT; NEEDS Rx FOR MORE GLUCOMETER SUPPLIES (WAS PAYING OOP) ORAL SUCTIONING WITH WAND (STATES NEEDS A NEW WAND FOR ORAL SUCTIONING) DC TEACHING NEEDED (REQUIRED) VENT MACHINE TRAINING, MGMT OF ALARMS, SIGNS & SYMPTOMS OF DISTRESS TRACHE SUCTIONING (USING INDWELLING BARD SUCTION CATHETERS) - RT STATED THEIR TEAM WILL HELP WITH SUCTIONING EDUCATION OF Pt's DTR, /SUZY, AND CAREGIVER/MIKE FREQUENCY OF CHANGING TRACHE; WHO WILL CHANGE; DTR/FAMILY NEED TO KNOW HOW TO CHANGE IF THERE IS AN EMERGENT BLOCKAGE EQUIPMENT CHANGING AND/OR CLEANING (NEED TO DETERMINE IF WILL USE DISPOSABLE VENT TUBING; DETERMINE FREQUENCY OF CHANGING) NEED TO DETERMINE IF NEED SEPARATE SUCTION MACHINE FOR SUCTIONING TRACHE AND MOUTH TO AVOID CROSS CONTAMINATION/INFECTION CURRENT SUCTION MACHINE IN HOME HAS A PLASTIC RECEPTACLE FOR SECRETIONS; HOW WILL THIS BE CLEANED?, FREQUENCY OF CHANGE; ASSESSMENT OF APPROPRIATE SUCTIONING PRESSURE --DTR WORKS MIDDLE SCHOOL CLASS/STUDENT AID TUESDAY-TUESDAY FROM 7 A.M. TO 3 P.M. --/SUZY AND CAREGIVER/MIKE WILL BE AVAILABLE TO ASSIST IN CARE FOR Pt WHEN DTR IS AT WORK --/SUZY HAS AGREED TO LEARN SUCTIONING OF Pt WHILE STILL IN HOSPITAL --JUNG/SHARITA TO F/UP WITH CAREGIVER/MIKE REGARDING HER WILLINGNESS TO SUCTION Pt AND ATTEND LEARNING SESSIONS IN HOSPITAL PRIOR TO DC --DTR MISSED [facility] HOME EVAL TO ASSESS IF Pt QUALIFIES FOR MORE IHSS HOURS DUE TO Pt's ADMISSION FOR THIS IN-Pt STAY DTR STATED SHE HAS CLEANED HOME EQUIPMENT IN PAST WITH HOT WATER, RUBBING ALCOHOL, VINEGAR & H2O. NEED TO DETERMINE APPROPRIATE CLEANING OF EQUIPMENT AT HOME; IF CLEANING SOLUTION CAN BE USED IN ICE CHEST FOR TIMED SOAKING DTR STATED DR. BYRNES IS Pt's PRIMARY MD NEED TO DETERMINE HOW Pt WILL HAVE MD FOLLOW-UP AFTER DC WILL BE DIFFICULT TO TAKE TO MD OFFICE POSSIBLY ASSESS IF HOME VISITING MD SERVICE CAN BE OBTAINED TO PREVENT RE-ADMISSIONS - Pt HAS NO IN-Pt HOSPITAL DAYS; ONLY LONG-TERM RESERVE DAYS (# 60, WILL NOT RE-GENERATE ONCE USED); AND, Pt WILL NEED TO BE OUT OF HOSPITAL 60 DAYS BEFORE CURRENT IN-Pt DAYS WILL REGENERATE BACK TO . (SEE CM NOTE w/CARE 1st KIERRA/AISLINN CONTACT ON 02/15/18.(THAT Pt's MEDICARE IN-Pt DAYS WILL REGENERATE NOW THAT Pt HAS TRACHE Dx) DTR ALSO UNDER THE IMPRESSION THAT Pt WILL BE ON STRAIGHT [facility] WHEN IS DISCHARGE HOME - CM TO F/UP WITH [facility] (FORMERLY, [address] HEALTH PLAN). DTR STATED SHE THINKS Pt's MEDICATION PART D COVERAGE IS THROUGH [facility] NEED TO DETERMINE NEW HOME HEALTH AGENCY PER 02/02/18 NOTE: "Spoke w dtr & son in law @ bedside, [facility] to [facility] pt upon dc, will need new home health". 02/03/18 CM NOTE DOCUMENTED PER CARE 1st CM/AISLINN, [facility] WILL BE AVAILABLE TO SERVICE Pt ON VENT/TRACHE -- NEED TO F/UP WITH THIS AGENCY TO CONFIRM. PER DTR/SHARITA, [facility] CONTACTED HER ON 02/13/18 TO SCHEDULE ANOTHER HOME VISIT FOR Pt SAFETY TO GO HOME ON VENTILATOR. PER DTR/SHARITA, [facility] CONDUCTED THIS EVALUATION ON 02/15/18. CM NEEDS TO F/UP WITH [facility] TO ASCERTAIN IF THEY ARE WILLING TO BE DME VENDOR FOR ALL VENTILATOR/TRACHE SUPPLIES. DME AT HOME: HOSPITAL BED WITH AIR MATTRESS (NEED TO ASSESS QUALITY AND IF REPLACEMENT NEEDED (INCLUDING BED MATTRESS) ERICK LIFT O2 CONCENTRATOR PORTABLE 02 (NEED TO DETERMINE # PORTABLE TANKS NEEDED) NEBULIZER (NEED TO DETERMINE TYPE OF NEBULIZER CUPS TO BE USED WITH VENT TUBING; ORDERS FOR HHNs; FAMILY TRAINING) SUCTION MACHINE, HAS HAD X 4 MONTHS (NEED TO DETERMINE TYPE; FUNCTIONALITY WITH SECRETION COLLECTION CHAMBER; CLEANING/CHANGING CANNISTER(s) DTR STATED SUPPLIES ARE CURRENTLY STORED IN GARAGE THAT IS NOT DRY-WALLED LIKE INSIDE HOME (NEED TO DETERMINE SAFE AREA FOR STORAGE AND SYSTEM TO KEEP TRACK OF REPLACEMENT NEEDS FOR SUPPLIES, ESPECIALLY VENT AND SUCTION RELATED) DTR STATED SHE IS AWARE SHE NEEDS TO GET A SMOKE DETECTOR AND CO2 MONITOR FOR Pt's LIVING AREA. DTR STATED ELECTRICITY IS WITH [facility] (NEED TO SEND LETTER TO THEM REGARDING FAMILY ON VENT FOR LIFE SUPPORT) DTR INFORMED OF NEED TO UPDATE LOCAL [employer] STATION REGARDING Pt's CURRENT CONDITION FOR FUTURE RESPONSE CALLS. DTR STATED HOME HAS 3 BEDROOMS, Pt's LIVING AREA IS SET-UP IN FAMILY DEN MDs, RESPIRATORY AND HH STAFF NEED TO BE INFORMED OF FAMILY HAVING 2 DOGS AND ONE CAT (WHO HIDES AND STAYS AWAY FROM Pt's ROOM) THAT HAVE ACCESS TO INSIDE HOME; AND 1 BIRD (? WHERE KEPT IN HOME; AND 1 RABBIT WHO STAYS OUTSIDE) DTR STATED SHE IS ABLE TO UNDERSTAND COMMUNICATIONS FROM Pt VIA YES/NO RESPONSES TO QUESTIONS PER BLINKING OF EYES, MOTHER WORDS, Pt KNOWS SOME SIGN LANGUAGE FOR YES/NO, THANK YOU, I LOVE YOU, AND WILL TELL DTR WHEN HUNGRY. Pt HAS DIFFICULTY WITH WRITING FOR COMMUNICATION DUE TO WEAKNESS FROM PAST STROKES; Pt IS RIGHT-HANDED. FAMILY COULD DEVELOP COMMUNICATION BOARD FOR Pt AFTER HOME. PREVIOUS TUBE FDGS WERE 6 CANS OVER 24 HOURS; FAMILY WOULD GIVE WHEN FAMILY EATS; AND Pt COULD TOLERATE 1 1/2 TO 2 CANS AT A TIME. DTR STATED IN PAST, Pt WOULD HAVE EMESIS WHEN SHE WOULD HAVE CONTINUOUS FEEDINGS; AND, DTR WOULD LIKE TO KNOW IF Pt CAN SWALLOW SAFELY FOR ORAL GRATIFICATION
--- NOTE | 2018-02-17 19:10 | NUR ---
OPENING NOTE Received report from Karely. Patient resting in bed with eyes closed. Breathing unlabored and even, trach to vent. Patient tolerating well. No signs of distress, no needs at this time. Fall, safety, aspiration, seizure, contact precautions in place. Bed in lowest position, brake on, alarm on, call light within reach. IVF infusing as ordered. G-tube feeding infusing as ordered. Hernandez catheter draining via gravity as ordered. Colostomy bag in place LLQ of abd. Wound vac in place. [place]-tinged drainage noted. Will continue to monitor.
--- NOTE | 2018-02-17 19:24 | NUR ---
CLOSING NOTE Patient is sleeping comfortably in bed, no s/s of acute distress. Trach to vent and tolerating well, no respiratory distress noted. Gtube in place, patent and intact, tolerating GTube feeding well. PICC line on MARIBEL patent and intact, IVF infusing as ordered. Colostomy patent and intact. F/C in place with visible urine output. Safety, aspiration, contact, seizure, and fall precautions in place. All needs met and anticipated throughout the shift. Bed low and locked, alarm on, seizure pads present, side rails up x3, call light within reach. Will endorse plan of care. Addendum: 02/17/18 at 1927 by Karely Corral RN ADDENDUM Wound vac running as ordered.
--- NOTE | 2018-02-17 20:16 | NUR ---
Oral care provided. Mouth suctioned.
[2018-02-17 20:19] VITALS: BP_SYST 141
--- NOTE | 2018-02-17 20:30 | NUR ---
Free water flush via g-tube of 100cc. Zero residual prior to flushing.
--- NOTE | 2018-02-17 21:00 | NUR ---
Colostomy bag found leaking. Colostomy bag changed.
--- NOTE | 2018-02-17 21:57 | NUR ---
Med pass. Blood sugar 138. No insulin coverage needed per PRN insulin sliding scale.
[2018-02-18 00:12] VITALS: BP_SYST 131
--- NOTE | 2018-02-18 00:41 | NUR ---
Oral care provided. Oral and trach suctioning done.
--- NOTE | 2018-02-18 00:45 | NUR ---
Free water flush via g-tube of 100cc. Zero residual prior to flushing.
[2018-02-18] MEDS: METOCLOPRAMIDE HCL 10 MG TABLET GT SCH ×4 (00:51→17:02)
--- NOTE | 2018-02-18 01:00 | NUR ---
New g-tube feeding hung.
--- NOTE | 2018-02-18 01:52 | NUR ---
PICC line dressing change done, sterile technique maintained. Patient tolerated well. Next dressing change due 02/25/18.
[2018-02-18] MEDS: ALBUTEROL SULFATE 0.083% 2.5 MG/3 ML VIAL.NEB INH SCH ×4 (01:59→19:41)
[2018-02-18] MEDS: IPRATROPIUM BROM 0.5 MG/2.5 ML VIAL.NEB (ATROVENT) INH SCH ×4 (02:00→19:41)
--- NOTE | 2018-02-18 04:14 | NUR ---
Free water flush via g-tube of 100cc. Zero residual prior to flushing.
--- NOTE | 2018-02-18 04:42 | NUR ---
Oral care provided. Mouth suctioned.
[2018-02-18] MEDS: FERROUS SULFATE 300 MG/5 ML UDC GT SCH ×3 (06:07→17:02)
[2018-02-18] MEDS: INSULIN REGULAR, HUMAN 100 UNITS/ML, 10 ML VIAL (novoLIN R) SUBCUT PRN ×3 (06:09→16:39)
[2018-02-18] MEDS: 0.45% NACL 1,000 ML IV SCH (06:10)
--- NOTE | 2018-02-18 06:12 | NUR ---
Med pass. New IVF hung with new tubing. Blood sugar 143. No insulin coverage needed per PRN insulin sliding scale. Patient repositioned.
[2018-02-18 07:20] LABS: HEMATOCRIT 25.7 % (36-48); HEMOGLOBIN 8.4 g/dL (12.0-16.0); MEAN CORPUSCULAR VOLUME 79 fL (79.0-98.0); RED BLOOD CELL COUNT(AUTO) 3.24 MIL/uL (4.2-6.2); WHITE BLOOD COUNT (AUTO) 12.2 K/uL (4.8-10.8)
[2018-02-18 07:21] LABS: BASOPHILS % (AUTO) 0.3 % (0.0-2.0); EOSINOPHILS # (AUTO) 0.3 K/uL (0.0-0.4); EOSINOPHILS % (AUTO) 2.8 % (0.0-4.0); LYMPHOCYTES # (AUTO) 1.4 K/uL (1.0-5.5); LYMPHOCYTES % (AUTO) 11.3 % (20.5-51.5); MEAN CORPUSCULAR HEMOGLOBIN 26 pg (27-31); MEAN CORPUSCULAR HGB CONC 33 % (32-36); MONOCYTES # (AUTO) 0.7 K/uL (0.0-1.0); MONOCYTES % (AUTO) 5.8 % (1.7-9.3); NEUTROPHILS # (AUTO) 9.8 K/uL (1.8-7.7); NEUTROPHILS % (AUTO) 79.8 % (40.0-70.0); PLATELET COUNT (AUTO) 230 K/uL (130-430)
--- NOTE | 2018-02-18 07:30 | NUR ---
CLOSING NOTE Gave report to Gio. Patient resting in bed with eyes closed. Breathing unlabored and even, trach to vent. Patient tolerating well. No signs of distress, no needs at this time. Fall, safety, aspiration, seizure, contact precautions in place. Bed in lowest position, brake on, alarm on, call light within reach. IVF infusing as ordered. G-tube feeding infusing as ordered. Hernandez catheter draining via gravity as ordered. Colostomy bag in place LLQ of abd. Wound vac in place. [place]-tinged drainage noted. Endorsed cares to day shift nurse.
[2018-02-18 07:48] LABS: CALCIUM 10.6 mg/dL (8.4-11.0); CREATININE 0.75 mg/dL (0.55-1.30)
[2018-02-18 08:00] VITALS: BP_SYST 97
--- NOTE | 2018-02-18 08:00 | NUR ---
OPENING NOTES, RECEIVED PT IN BED, PT EYES ARE CLOSED, APPEARS SLEEPING, PT ON TRACH TO VENT WITH SETTING OF AC 14, TV 500, PS 5, [id number]%, PT IS AFEBRILE, RR IS 18. PICC INTACT AND PATENT, G-TUBE INTACT AND PATENT, NO RESIDUAL, FLUSHED WITH 100CC WATER, WATER STOOL NOTED ON L. COLOSTOMY, LARGE BORE MANJARREZ CATH INTACT PATENT, LEAKING. ORAL CARE DONE. PT LATER OPENED EYES, DOES NOT RESPOND TO VOICE, NOT TRACKING. HOB AT 35 DEGREES. WILL CONT TO MONITOR.
[2018-02-18] MEDS: LACTULOSE 20 GM/30 ML UDC GT SCH ×2 (09:00→20:58)
[2018-02-18] MEDS: CALCIUM CARBONATE/VITAMIN D3 1 TAB TABLET GT SCH ×2 (09:10→20:58)
[2018-02-18] MEDS: LACTOBACILLUS RHAMNOSUS GG 1 CAP CAPSULE GT SCH ×2 (09:10→20:58)
[2018-02-18] MEDS: PANTOPRAZOLE GRANULES PACKET 40 MG GT SCH ×2 (09:10→20:58)
[2018-02-18] MEDS: POTASSIUM CHLORIDE 20 MEQ/PKT PACKET GT SCH ×2 (09:10→20:58)
[2018-02-18] MEDS: MULTIVIT-MINERALS/FERROUS GLUC 15 ML UDC GT SCH ×2 (09:10→20:59)
[2018-02-18] MEDS: ASCORBIC ACID 500 MG TABLET GT SCH ×2 (09:10→20:58)
[2018-02-18] MEDS: CHOLECALCIFEROL (VITAMIN D3) 2,000 UNIT TABLET GT SCH (09:10)
[2018-02-18] MEDS: LevETIRAcetam 500 MG/5 ML UDC ORAL LIQUID GT SCH ×2 (09:11→21:00)
[2018-02-18] MEDS: NAPH,MB-DB/K PH,MBDB 250 MG TAB GT SCH ×2 (09:14→20:58)
--- NOTE | 2018-02-18 11:30 | NUR ---
WOUND VAC DRESSING REINFORCED DUE TO LEAK.
[2018-02-18 11:36] VITALS: BP_SYST 144
[2018-02-18] MEDS: BALSAM PERU/CASTOR OIL 60 GM OINT...G. TP SCH (11:41)
--- NOTE | 2018-02-18 12:00 | NUR ---
PT TURNED AND REPOSITIONED, ORAL CARE DONE. WILL CONT TO MONITOR PT.
[2018-02-18 15:30] VITALS: BP_SYST 136
--- NOTE | 2018-02-18 16:00 | NUR ---
PT TURNED AND REPOSITIONED , ORAL CARE DONE.
[2018-02-18] MEDS: SOD FERRIC GLUC COMPLEX/SUC 125 MG in NS 100 ML IV SCH (16:38)
--- NOTE | 2018-02-18 18:02 | NUR ---
PT IN BED, AWAKE, NO S./S OF PAIN, NO SOB, NO RESP DISTRESS. WILL CONT TO MONITOR.
--- NOTE | 2018-02-18 19:25 | NUR ---
OPENING NOTE RECEIVED PT AND BEDSIDE REPORT. PT EYES ARE CLOSED, TOLERATING ORDERED VENT SETTINGS WELL WITH SETTING OF AC 14, TV 500, PS 5, [id number]%. PICC INTACT AND PATENT, G-TUBE INTACT AND PATENT WITH ORDERED FEEDING RUNNING, NO RESIDUAL AT THIS TIME. LARGE BORE MANJARREZ CATH INTACT PATENT, LEAKING A SMALL AMOUNT BUT DRAINING TO GRAVITY. WILL CONTINUE TO MONITOR.
--- NOTE | 2018-02-18 19:48 | NUR ---
CLOSING NOTES, PT HAS BEEN STABLE, CONTINUED TO BE TO VENT AC MODE, NO CHANGE IN SETTINGS. NO RESIDUAL FROM G-TUBE FEEDING, ORAL CARE DONE Q4. WOUND VAC WORKING WELL. WITH 30 CC OF DRAINAGE. ENDORSED TO NIGHT RN. CAMPOS/BONY
[2018-02-18 20:00] VITALS: BP_SYST 143
--- NOTE | 2018-02-18 21:25 | NUR ---
ORAL CARE AND LINEN CHANGE ORAL CARE PROVIDED TO PT, WELL A LINEN CHANGE. PT TOLERATED WELL. BREATHING EVEN AND EFFORTLESS TO VENT SETTING. NO RESIDUAL FROM GTUBE, MEDICATIONS ADMINISTERED ORDERED. PT APPEARS COMFORTABLE AT THIS TIME. WILL MONITOR.
--- NOTE | 2018-02-18 23:45 | NUR ---
PT REPOSITIONED AND TUBE FEEDING/TUBE FEEDING LINES CHANGED. PT TOLERATING VENT SETTINGS WELL, ORAL CARE PROVIDED. PT APPEARS COMFORTABLE WITH NO SIGNS OF ACUTE DISTRESS. IVF INFUSING. WILL MONITOR.
[2018-02-19] MEDS: METOCLOPRAMIDE HCL 10 MG TABLET GT SCH ×5 (00:02→23:26)
[2018-02-19 00:34] VITALS: BP_SYST 118
[2018-02-19] MEDS: IPRATROPIUM BROM 0.5 MG/2.5 ML VIAL.NEB (ATROVENT) INH SCH ×3 (00:43→19:50)
[2018-02-19] MEDS: ALBUTEROL SULFATE 0.083% 2.5 MG/3 ML VIAL.NEB INH SCH ×3 (00:43→19:50)
--- NOTE | 2018-02-19 02:00 | NUR ---
PT REPOSITIONED IN BED. PT RESTING COMFORTABLY IN BED. PT TOLERATING VENT SETTINGS WELL. IVF INFUSING ORDERED. TUBE FEEDING RUNNING, NO RESIDUAL AT THIS TIME. SAFETY, ASPIRATION, CONTACT, AND PRESSURE PRECAUTIONS IN PLACE. WILL MONITOR.
--- NOTE | 2018-02-19 04:00 | NUR ---
PT REPOSITIONED. PT RESTING IN BED WITH EYES SHUT. NO ACUTE DISTRESS NOTED. SAFETY, CONTACT, ASPIRATION, AND PRESSURE PRECAUTIONS ARE IN PLACE. WILL MONITOR.
--- NOTE | 2018-02-19 06:00 | NUR ---
ACCUCHECK BLOOD GLUCOSE 165, 2 UNITS OF COVERAGE. PT REPOSITIONED AND LINENS CHANGED. ORAL CARE PROVIDED. PT TOLERATING VENT SETTINGS. TUBE FEEDING RUNNING ORDERED. MORNING MEDICATIONS ADMINISTERED ORDERED. PT SHOWS NO SIGNS OF ACUTE DISTRESS. WILL CONTINUE TO MONITOR.
[2018-02-19] MEDS: FERROUS SULFATE 300 MG/5 ML UDC GT SCH ×3 (06:15→17:16)
[2018-02-19] MEDS: 0.45% NACL 1,000 ML IV SCH (06:16)
[2018-02-19] MEDS: INSULIN REGULAR, HUMAN 100 UNITS/ML, 10 ML VIAL (novoLIN R) SUBCUT PRN ×3 (06:29→17:22)
--- NOTE | 2018-02-19 07:25 | NUR ---
CLOSING NOTES PT ON TRACH TO VENT WITH SETTING OF AC 14, TV 500, PS 5, FIO2-30%. PICC DRESSING IS DRY, INTACT AND PATENT, IV FLUIDS INFUSING ORDERED G-TUBE INTACT AND PATENT, WITH NO RESIDUAL. LOOSE STOOL PRESENT ON LEFT COLOSTOMY, TURKISH 28 MANJARREZ CATH INTACT PATENT, LEAKING SLIGHTLY AND SECURED IN PLACE WITH SECUREMENT DEVICE, MANJARREZ BAG AT FOOT OF BED DRAINING TO GRAVITY. WOUND VACC INTACT, NO LEAK NOTED. ORAL CARE DONE THROUGHOUT SHIFT. PT DOES HOB AT 35 DEGREES. SAFETY, FALL, CONTACT, ASPIRATION, AND PRESSURE PRECAUTIONS HAVE BEEN OBSERVED. ALL NEEDS MET THROUGHOUT SHIFT. ENDORSED CARE TO DAY SHIFT RN, BEDSIDE REPORT GIVEN.
[2018-02-19 07:42] VITALS: BP_SYST 138
--- NOTE | 2018-02-19 07:47 | NUR ---
OPENING NOTES, RECEIVED PT IN BED, PT EYES ARE CLOSED, APPEARS SLEEPING, AWAKENS WITH TACTILE STIMULI, PT ON TRACH TO VENT WITH SETTING OF AC 14, TV 500, PS 5, FIO2-30%, VITALS WNL, NO FEVER. PICC INTACT AND PATENT, IV FLUIDS INFUSING WELL. G-TUBE INTACT AND PATENT, NO RESIDUAL, FLUSHED WITH 100CC WATER, WATER STOOL NOTED ON L. COLOSTOMY, CHILEAN 28 MANJARREZ CATH INTACT PATENT, LEAKING. SECURED IN PLACE WITH SECUREMENT DEVICE, MANJARREZ BAG AT FOOT OF BED. WOUND VACC INTACT, NO LEAK NOTED. ORAL CARE DONE. PT DOES NOT RESPOND TO VOICE, EYES NOT TRACKING. HOB AT 35 DEGREES. WILL CONT TO MONITOR.
[2018-02-19] MEDS: PANTOPRAZOLE GRANULES PACKET 40 MG GT SCH ×2 (08:57→22:04)
[2018-02-19] MEDS: POTASSIUM CHLORIDE 20 MEQ/PKT PACKET GT SCH ×2 (08:57→22:04)
[2018-02-19] MEDS: LACTOBACILLUS RHAMNOSUS GG 1 CAP CAPSULE GT SCH ×2 (08:57→22:03)
[2018-02-19] MEDS: CALCIUM CARBONATE/VITAMIN D3 1 TAB TABLET GT SCH ×2 (08:57→22:04)
[2018-02-19] MEDS: ASCORBIC ACID 500 MG TABLET GT SCH ×2 (08:57→22:04)
[2018-02-19] MEDS: CHOLECALCIFEROL (VITAMIN D3) 2,000 UNIT TABLET GT SCH (08:57)
[2018-02-19] MEDS: MULTIVIT-MINERALS/FERROUS GLUC 15 ML UDC GT SCH ×2 (08:58→22:02)
[2018-02-19] MEDS: LevETIRAcetam 500 MG/5 ML UDC ORAL LIQUID GT SCH ×2 (08:58→22:04)
[2018-02-19] MEDS: NAPH,MB-DB/K PH,MBDB 250 MG TAB GT SCH ×2 (08:58→22:09)
[2018-02-19] MEDS: BALSAM PERU/CASTOR OIL 60 GM OINT...G. TP SCH (08:58)
[2018-02-19] MEDS: LACTULOSE 20 GM/30 ML UDC GT SCH ×2 (08:59→21:00)
--- NOTE | 2018-02-19 10:05 | NUR ---
PT IN BED, EYES OPEN, NO S/S OF RESP DISTRESS. WOUND VAC WORKING OKAY, NO LEAK. WILL CONT OT MONITOR.
[2018-02-19 11:30] VITALS: BP_SYST 111
--- NOTE | 2018-02-19 12:22 | NUR ---
PT TURNED AND REPOSITIONED. ORAL CARE DONE. G-TUBE FEEDING ON GOING. IV FLUIDS INFUSING WELL WOUND VACC NO LEAK. WILL CONT TO MONITOR.
[2018-02-19 15:20] VITALS: BP_SYST 104
[2018-02-19] MEDS: SOD FERRIC GLUC COMPLEX/SUC 125 MG in NS 100 ML IV SCH (15:59)
--- NOTE | 2018-02-19 16:13 | NUR ---
TURNED AND REPOSITIONED, ORAL CARE DONE.
--- NOTE | 2018-02-19 18:02 | NUR ---
PT TURNED AND REPOSITIONED. WOUND VAC INTACT, NO LEAK.
--- NOTE | 2018-02-19 19:24 | NUR ---
Closing Notes, Pt has been stable, no change in vent settings, Endorsed to night rn Davida.
--- NOTE | 2018-02-19 20:00 | NUR ---
INITIAL NOTES: PATIENT IN BED ,NONVERBAL ,EYES OPEN BLINKING SPONTANEOUSLY,CLOSES EYES WHEN WAVE HANDS ON HER. ON AC VENT 14,TV 500 FIO2 30% PEEP OF 5 SAT 95%.MOVES RIGHT ARM TO CHEST AND UP TO AIR BY SELF. IVF INFUSING AT 30ML/HR VIA PICC LINE RIGHT UPPER ARM.GLUCERNA FEEDING TUBE AT 45ML/HR. COLOSTOMY WITH WATERY STOOL. MANJARREZ WITH SCANT LEAK,LARGE FR. WOUND VAC WORKING WELL. VITAL SIGNS STABLE. SINUS RHYTHM. WILL MONITOR CLOSELY.
[2018-02-19 20:15] VITALS: BP_SYST 133
--- NOTE | 2018-02-19 21:50 | NUR ---
MEDS ADMIN/COLOSTOMY BAG. ALL DUE MEDS GIVEN VIA G TUBE WITH EPISODES OF CLOGGING. WATER FLUSH DONE. BLOOD SUGAR 122MG/DL. NO COVERAGE.HAS SMALL DIARRHEA VIA COLOSTOMY BAG.LOT OF AIR REMOVED. WITH SMALL LEAKAGE. TURNED TO SIDES. ORAL CARE DONE.MOISTENED LIPS.
[2018-02-19] MEDS: ACETAMINOPHEN 650 MG/20.3 ML UDC GT PRN (23:24)
[2018-02-20] VITALS: BP_SYST 126
--- NOTE | 2018-02-20 00:40 | NUR ---
WOUND VAC/COLOSTOMY/G TUBE DRESSING/ SCD: G TUBE DRESSING CHANGED ,SITE WITH OLD DRY BROWNISH CRUST. COLOSTOMY BAG LEAKING WITH MOD. WATERY STOOL. STOMA RED. AND LITTLE SURROUNDING. BAG CHANGED. WOUND VAC MACHINE ALARM WITH AIR LEAK. DRESSING CHANGED BY KRISTINE CAMEJO. WORKING WELL AFTER,WITH PINKISH COLOR DRAINAGE. WOUND BED DARK REDDISH, BLACKISH AREA .NEW SCD SLEEVE PLACED
[2018-02-20] MEDS: ALBUTEROL SULFATE 0.083% 2.5 MG/3 ML VIAL.NEB INH SCH ×4 (00:57→19:38)
[2018-02-20] MEDS: IPRATROPIUM BROM 0.5 MG/2.5 ML VIAL.NEB (ATROVENT) INH SCH ×4 (00:57→19:38)
--- NOTE | 2018-02-20 01:30 | NUR ---
[facility] BATH RENDERED.
--- NOTE | 2018-02-20 02:00 | NUR ---
WATER FLUSH DONE EARLIER.FIXED LEADS.ORAL CARE DONE
--- NOTE | 2018-02-20 04:05 | NUR ---
TURNED. ORAL CARE AND SUCTIONING DONE.
[2018-02-20] MEDS: FERROUS SULFATE 300 MG/5 ML UDC GT SCH ×3 (06:24→16:17)
[2018-02-20] MEDS: METOCLOPRAMIDE HCL 10 MG TABLET GT SCH ×4 (06:24→23:32)
[2018-02-20] MEDS: 0.45% NACL 1,000 ML IV SCH (06:25)
--- NOTE | 2018-02-20 06:35 | NUR ---
CLOSING: BLOOD SUGAR RESULT 140MG/DL. NO COVERAGE. NO SEIZURE DURING THE SHIFT.TRACHE SUCTIONING AND ORAL CARE ,TURNING , DRESSING CHANGES,ROUNDING DONE. NO CHANGE IN VENT SETTINGS. HAD MORE TRACHE SECRETIONS THIS SHIFT. KEPT DRY AND COMFORTABLE.ALL NEEDS WERE ATTENDED. NO ACUTE CARDIOPULMONARY DISTRESS. NO FEVER.TOLERATING FEEDING WELL. WILL ENDORSE TO AM RN FOR CONTINUITY OF CARE.
[2018-02-20 08:00] VITALS: BP_SYST 133
--- NOTE | 2018-02-20 08:00 | NUR ---
initial notes rec patient awake opens her eyes follows you. with trach connected to mechanical ventilator, suctioned patient with large amount of thin secretions. resp easy and unlabored. bed to the lowest position and side rails up and locked. call light within reached and pt close to the nurse station. gt feeding osman well and no residual noted. will continue to monitor patient.
[2018-02-20] MEDS: PANTOPRAZOLE GRANULES PACKET 40 MG GT SCH ×2 (08:51→21:36)
[2018-02-20] MEDS: POTASSIUM CHLORIDE 20 MEQ/PKT PACKET GT SCH ×2 (08:51→21:36)
[2018-02-20] MEDS: LACTOBACILLUS RHAMNOSUS GG 1 CAP CAPSULE GT SCH ×2 (08:51→21:36)
[2018-02-20] MEDS: MULTIVIT-MINERALS/FERROUS GLUC 15 ML UDC GT SCH ×2 (08:51→21:00)
[2018-02-20] MEDS: CALCIUM CARBONATE/VITAMIN D3 1 TAB TABLET GT SCH ×2 (08:51→21:36)
[2018-02-20] MEDS: ASCORBIC ACID 500 MG TABLET GT SCH ×2 (08:52→21:36)
[2018-02-20] MEDS: LevETIRAcetam 500 MG/5 ML UDC ORAL LIQUID GT SCH ×2 (08:52→21:36)
[2018-02-20] MEDS: CHOLECALCIFEROL (VITAMIN D3) 2,000 UNIT TABLET GT SCH (08:52)
[2018-02-20] MEDS: LACTULOSE 20 GM/30 ML UDC GT SCH ×2 (08:52→21:36)
[2018-02-20] MEDS: NAPH,MB-DB/K PH,MBDB 250 MG TAB GT SCH ×2 (08:52→21:36)
[2018-02-20] MEDS: BALSAM PERU/CASTOR OIL 60 GM OINT...G. TP SCH (09:00)
--- NOTE | 2018-02-20 10:00 | NUR ---
rounds seen by dr hong at bedside and due meds were given and osman well. flushed it without resistance. turned repositioned for comfort .
[2018-02-20 12:07] VITALS: BP_SYST 132
--- NOTE | 2018-02-20 12:30 | NUR ---
rounds no hypo hyperglycemic reaction noted. due meds given as ordered. suctioned prn on her trache prn. no sob noted as long as patient is sutioned frequently.
[2018-02-20] MEDS: INSULIN REGULAR, HUMAN 100 UNITS/ML, 10 ML VIAL (novoLIN R) SUBCUT PRN ×3 (12:51→22:08)
--- NOTE | 2018-02-20 14:00 | NUR ---
rounds daughter at bedside and talked with dr halley causey plans for d/c.
[2018-02-20] MEDS: SOD FERRIC GLUC COMPLEX/SUC 125 MG in NS 100 ML IV SCH (16:07)
--- NOTE | 2018-02-20 16:15 | NUR ---
CM DC PLANNING: DISCUSSED WITH NURSING IN BED HUDDLE THE PLAN IN REGARDING TO DC HOME FROM HOSPITAL NEED TO CONFIRM DME THAT WILL PROVIDE VENT, VENT SUPPLIES, & RESPIRATORY THERAPY F/UP; AND, TO CONFIRM HH WITH [facility]; AND, TO PERFORM FAMILY TRAINING. ALSO, CM UPDATED AMBER & CM DIRECTOR/MATTHEW REGARDING DC PLANNING CARE NEEDS INCLUDING FAMILY TRAINING. KAYY TO F/UP WITH [facility] TO ASCERTAIN THEIR ACCEPTANCE OF Pt FOR VENT CARE NEEDS AND OTHER CARE SUPPLIES FOR FEEDINGS, WOUND CARE, ETC. DTR/SHARITA AND /SUZY CAME TO HOSPITAL AND MET WITH CM TO DISCUSS PLANS FOR DC AND FAMILY TRAINING REGARDING SUCTIONING AND OTHER NEW CARE NEEDS. SHARITA STATED THAT THEIR OTHER CAREGIVER FOR Pt WILL BE MIKE WHO STATED SHE IS WILLING TO LEARN TRACHE SUCTIONING AND CARE WELL. DTR/SHARITA STATED SHE, SUZY, AND MIKE WILL COME TO HOSPITAL TOMORROW, 02/21/18, AT 1600 TO BEGIN LEARNING SUCTIONING. ALSO, DISCUSSED RECOMMENDATION & NEED FOR FAMILY/CAREGIVERS TO BE AT HOSPITAL FOR OVERNIGHT TRIAL OF FULL CAREGIVING PRIOR TO DC. CAREGIVERS ALSO NEED TO KNOW HOW TO CHANGE TRACHE IN CASE OF EMERGENCY, EXTRA TRACHE AVAILABLE AT HOME; AND, DAILY TRACHE CARE. KIERRA & KIERRA DOWNEY/MATTHEW S/W CHG RN/[place] REGARDING NEED TO BEGIN FAMILY TRAINING TOMORROW; AND, TO ENSURE NURSING & RESP THERAPY AVAILABLE FOR TEACHING. CM REQUESTED CHG RN COMMUNICATE WITH MD TO ASCERTAIN TYPE OF TUBE FDGS Pt WILL BE ON WHEN DC'd (INTERMITTENT VS CONTINUOUS w/ OR w/o NIGHT-TIME GUT REST); Pt WILL LIKELY NEED A SAP PPM CONSULTANT RE-EVAL FOR NUTRITION NEEDS. AMBER UPDATED & WILL F/UP WITH WEEKDAY CMs, DME & HH PROVIDERS, AND FAMILY TRAINING FOR DC HOME WITH VENT.
[2018-02-20] MEDS: EPOETIN ALFA 10,000 UNITS/ML VIAL SUBCUT SCH (16:18)
[2018-02-20 16:32] VITALS: BP_SYST 138
--- NOTE | 2018-02-20 18:45 | NUR ---
closing notes no hypo hyperglycemic reaction noted. due meds given as ordered. hob slightly elevated. no sob noted. bed to the lowest position and side rails up and locked. gt feedings osamn well and no residual noted. colosotomy was emptied by kaylan with loose stool noted.
--- NOTE | 2018-02-20 19:30 | NUR ---
Initial Notes Received handoff report from offgoing nurse at the bedside. Patient is resting comfortably in bed with eyes closed. Able to open eyes and track, nonverbal. No SOB, no acute distress, no signs of pain or facial grimacing noted. Bed is locked, in the lowest position, 2x side rails up, bed alarm is on. Call light is within reach. Will continue with plan of care.
[2018-02-20 20:00] VITALS: BP_SYST 127
--- NOTE | 2018-02-20 21:30 | NUR ---
Colostomy bag is leaking. Changed as needed. Patient tolerated procedure well.
--- NOTE | 2018-02-20 22:24 | NUR ---
Patient is resting comfortably in bed with eyes closed. No SOB, no acute distress, no signs of pain or facial grimacing noted. Bed is locked, in the lowest position, 2x side rails up, bed alarm is on. Call light is within reach. Encouraged patient to call for assistance.
[2018-02-21] VITALS: BP_SYST 119
--- NOTE | 2018-02-21 00:45 | NUR ---
Patient is resting comfortably in bed with eyes closed. Tolerating trach to vent settings. Bed locked, lowest position, 2x side rails up, bed alarm is on. Call light within reach.
[2018-02-21] MEDS: IPRATROPIUM BROM 0.5 MG/2.5 ML VIAL.NEB (ATROVENT) INH SCH ×4 (01:06→19:33)
[2018-02-21] MEDS: ALBUTEROL SULFATE 0.083% 2.5 MG/3 ML VIAL.NEB INH SCH ×4 (01:06→19:33)
[2018-02-21] MEDS: 0.45% NACL 1,000 ML IV SCH (03:07)
--- NOTE | 2018-02-21 03:15 | NUR ---
Patient is resting comfortably in bed with eyes closed. Tolerating trach to vent settings. No SOB, no acute distress, no signs of pain or facial grimacing noted. Bed is locked, in the lowest position, 2x side rails up, bed alarm is on. Call light is within reach. Tube feeding formula changed as needed.
--- NOTE | 2018-02-21 05:43 | NUR ---
Provided bed bath as needed. Patient is now clean and dry, resting comfortably in bed. No SOB, no acute distress, no signs of discomfort noted. Tolerating trach to vent settings. Bed is locked, in the lowest position, 2x side rails up, bed alarm is on. Call light is within reach.
[2018-02-21] MEDS: FERROUS SULFATE 300 MG/5 ML UDC GT SCH ×3 (06:01→17:20)
[2018-02-21] MEDS: METOCLOPRAMIDE HCL 10 MG TABLET GT SCH ×5 (06:01→23:40)
[2018-02-21] MEDS: INSULIN REGULAR, HUMAN 100 UNITS/ML, 10 ML VIAL (novoLIN R) SUBCUT PRN (06:05)
--- NOTE | 2018-02-21 07:18 | NUR ---
Closing Notes Handoff report received from offgoing nurse at the bedside. Patient is awake and alert, resting comfortably in bed. No SOB, no acute distress, no signs of pain or facial grimacing noted. Tolerating trach to vent settings. Gtube feeding infusing at ordered rate. Bed is locked, in the lowest position, 2x side rails up, bed alarm is on. Call light within reach. Fall and safety precautions maintained. All needs have been met during this shift. Addendum: 02/21/18 at 0735 by Sindi Calvo RN ERROR* wrong note
--- NOTE | 2018-02-21 07:35 | NUR ---
Closing Notes Handoff report given to oncoming nurse at the bedside. Patient is awake and alert, resting comfortably in bed. No SOB, no acute distress, no signs of pain or facial grimacing noted. Tolerating trach to vent settings. Gtube feeding infusing at ordered rate. Bed is locked, in the lowest position, 2x side rails up, bed alarm is on. Call light within reach. Fall and safety precautions maintained. All needs have been met during this shift.
--- NOTE | 2018-02-21 08:00 | NUR ---
initial notes rec patient awake opens eyes but non verbally responsive.trache connected to mechanical ventilator. suctioned patient prn and obtaining small amount thin whitish phlegm. gt feedings osman well and no residual noted. colostomy noted with liquid stool and was emptied. bed to the lowest position and side rails up and locked. call light within reached and patient is close to the nurses station. bed alam is on.
[2018-02-21 08:14] LABS: CALCIUM 9.8 mg/dL (8.4-11.0); POTASSIUM 4.9 mmol/L (3.5-5.1)
[2018-02-21 08:15] LABS: CREATININE 0.72 mg/dL (0.55-1.30)
[2018-02-21] MEDS: LACTOBACILLUS RHAMNOSUS GG 1 CAP CAPSULE GT SCH ×2 (08:44→20:50)
[2018-02-21] MEDS: ASCORBIC ACID 500 MG TABLET GT SCH ×2 (08:44→20:50)
[2018-02-21] MEDS: PANTOPRAZOLE GRANULES PACKET 40 MG GT SCH ×2 (08:44→20:50)
[2018-02-21] MEDS: CALCIUM CARBONATE/VITAMIN D3 1 TAB TABLET GT SCH ×2 (08:44→20:50)
[2018-02-21] MEDS: LevETIRAcetam 500 MG/5 ML UDC ORAL LIQUID GT SCH ×2 (08:44→20:50)
[2018-02-21] MEDS: CHOLECALCIFEROL (VITAMIN D3) 2,000 UNIT TABLET GT SCH (08:44)
[2018-02-21] MEDS: NAPH,MB-DB/K PH,MBDB 250 MG TAB GT SCH ×2 (08:44→20:50)
[2018-02-21] MEDS: POTASSIUM CHLORIDE 20 MEQ/PKT PACKET GT SCH ×2 (08:44→20:50)
[2018-02-21] MEDS: MULTIVIT-MINERALS/FERROUS GLUC 15 ML UDC GT SCH ×2 (08:45→20:51)
[2018-02-21] MEDS: LACTULOSE 20 GM/30 ML UDC GT SCH ×2 (08:45→20:50)
[2018-02-21] MEDS: BALSAM PERU/CASTOR OIL 60 GM OINT...G. TP SCH (08:46)
[2018-02-21 09:05] LABS: WHITE BLOOD COUNT (AUTO) 13.9 K/uL (4.8-10.8)
[2018-02-21 09:06] LABS: HEMATOCRIT 26.2 % (36-48); HEMOGLOBIN 8.6 g/dL (12.0-16.0); MEAN CORPUSCULAR HEMOGLOBIN 25 pg (27-31); MEAN CORPUSCULAR HGB CONC 33 % (32-36); MEAN CORPUSCULAR VOLUME 77 fL (79.0-98.0); PLATELET COUNT (AUTO) 277 K/uL (130-430); RED CELL DISTRIBUTION WIDTH 22.4 % (9.0-15.0)
--- NOTE | 2018-02-21 10:00 | NUR ---
rounds resitng comfortably, due meds given and osman well. turned repositioned for comfort will continue to monitor patient.
--- NOTE | 2018-02-21 12:28 | NUR ---
Discharge Planning: WAYS OPERATOR received a call from Thom ([phone]) the lead RT from [facility]. Thom states that he did complete a re-visit to pt's home and [facility] is agreeable to resuming services and starting ventilator services for pt. Thom will contact pt's dtr to arrange for 3 sessions of ventilator trainings at the hospital. Thom states that he will also work on a supply list and get those filled for pt.
[2018-02-21 12:36] VITALS: BP_SYST 121
[2018-02-21 12:45] LABS: ATYPICAL LYMPHOCYTES % 0 % (0-0); BAND % (MANUAL) 2 % (0-6); BASOPHILS % (MANUAL) 0 % (0-2); EOSINOPHILS % (MANUAL) 2 % (0-7); LYMPHOCYTES % (MANUAL) 6 % (20-46); MONOCYTES % (MANUAL) 2 % (0-11)
--- NOTE | 2018-02-21 13:30 | NUR ---
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 Coli, Hx CVA Subjective Information Pt remains +unresponsive w/ TF infusing Glucerna 1.2, not Glucerna 1.5 as per MD order -- RD notified pt's primary RN; RN stated she would replace promptly once new formula is received. RD stated that pt has been tolerating TF well, no residuals. Marques and Prosource administered as per MD order per RN report. She also reported ample liquid BM via colostomy. Per EMR, TF Intakes: 1080 ml 02/20/18. Residuals: 0 ml 02/21/17. Abd is soft w/ active bowel sounds. I/O: 375/600 (-225 ml) per 12 hours. Pt continues to benefit from an increase in nutrition support to aid for possible hypermetabolic state. Current Diet Order/Nutrition Support Glucerna 1.5 at 45 ml/hr, Marques BID, Prosource TID Free Water Flush: 100 ml Q4h via GT x9 days Patient/Significant Other Unable To Verbalize Education Provided Not Indicated Pertinent Medications neutraphos, reglan, zofran, VIT D-3, protonix, culturelle, centrum, zinc sulfate, os-shorty, VIT C, ferrous sulfate, SSI, tums Pertinent Labs POC BG 161 H, BG 144 H, BUN 42 H, H/H 8.6 L/26.2 L, WBC 13.9 H, ALB 1.8 L (02/15/18) Height (Feet 5 feet Height (Inches) 3.00 inches Weight (Pounds) 152 pounds (01/17/18) BED SCALE WT: 186.5 lb (01/23/18); 168 lb (02/16/18); 177 lb (02/21/18) -- may be inaccurate d/t blankets/pillows Weight (Calculated Kilograms) 68.406506 kilograms Patient Weight 68.946 kg Body Mass Index 26.92 kg/m2 %IBW 133 [place]/Adjusted Body Weight IBW: 115 lb, 52 kg. Adj IBW (obesity): 124 lb, 56 kg Recent Weight Change No Weight Status Overweight Last BM 02/21/18 Food Allergies No Usual Diet At Home Unable to assess per EMR Skin Integrity Comment: Jeff scale: 12; per Fixed Interest Dealer note 02/16/18: 1. Sacral-Coccygeal area: Pressure ulcer, present on admission. Wound bed has 60% yellow tissue, 30% pink tissue, 10% black tissue. No odor, scant sanguineous drainage. Dark Bilateral generalized non-pitting edema Estimated Energy Expenditure (kcals/day) 7491-0037 kcal/day (30-35 kcal/kg Adj IBW for sepsis, wound healing) Estimated Protein Required (g/day) 67-112 gm/day (1.2-2 gm/kg Adj IBW for sepsis, wound healing) Estimated Fluid Required (l/day) Per MD (ARF) Problem/Etiology/Signs/Symptoms Inadequate enteral nutrition related to metabolic demands as evidenced by current TF regimen meets 79% of estimated caloric needs and 94% of estimated protein needs. *improving Expected Outcomes/Goals - Monitor tolerance to EN support w/ goal of pt meeting at least 85% of estimated nutritional needs, labs trending WNL, normal GI function, and skin integrity/wt maintenance Dietitian Recommendations * Recommend Glucerna 1.5 at 45 ml/hr, Marques BID, Prosource TID, Free Water Flush: 100 ml Q4h via GT Provides: 1980 kcal/day, 139 gm protein/day, and 1420 ml free water/day Meets: 101% of upper end of estimated caloric needs and 124% of upper end of estimated protein needs Follow Up Moderate Risk: F/U in 3-5 days
--- NOTE | 2018-02-21 13:35 | NUR ---
Dietitian Recommendations * Recommend Glucerna 1.5 at 45 ml/hr, Marques BID, Prosource TID, Free Water Flush: 100 ml Q4h via GT Provides: 1980 kcal/day, 139 gm protein/day, and 1420 ml free water/day Meets: 101% of upper end of estimated caloric needs and 124% of upper end of estimated protein needs LP, RD Please refer to Nutrition F/U for details.
--- NOTE | 2018-02-21 14:00 | NUR ---
rounds asleep when rounds made. resp easy and unlabored. no sob noted. turned repositioned for comfort.
--- NOTE | 2018-02-21 15:52 | NUR ---
rounds seen by dr rowley. resting comfortably. no sob noted.
[2018-02-21 16:30] VITALS: BP_SYST 115
--- NOTE | 2018-02-21 17:55 | NUR ---
1630 I EDUCATED FAMILY MEMBER HOW TO SUCTION THROUGH TRACHEOSTOMY. FAMILY MEMBER PERFORMED SUCTIONING.
--- NOTE | 2018-02-21 18:04 | NUR ---
rounds no hypo hyperglycemic reaction noted. family at the bedside. resp easy and unlabored. no acute distress noted. gt feeding osman well. no residual noted. bed to the lowest position and side rails up and locked.
--- NOTE | 2018-02-21 19:30 | NUR ---
Initial Notes Received handoff report from offgoing nurse at the bedside. Patient is awake, resting comfortably in bed. No SOB, no acute distress, no signs of pain or facial grimacing noted. Tolerating trach to vent settings. Gtube feeding running at ordered rate, see eMAR. Able to track with eyes, but is nonverbal. Bed is locked, in the lowest position, 2x side rails up, bed alarm is on. Call light is within reach. Will continue with plan of care.
[2018-02-21 20:05] VITALS: BP_SYST 128
--- NOTE | 2018-02-21 21:39 | NUR ---
Patient is resting comfortably in bed with eyes closed. No SOB, no acute distress, no signs of pain or facial grimacing noted. Tolerating trach to vent settings. Gtube feeding running at ordered rate, see eMAR. Bed is locked, in the lowest position, 2x side rails up, bed alarm is on. Call light is within reach.
--- NOTE | 2018-02-21 23:59 | NUR ---
Patient resting comfortably in bed awake. Tolerating trach to vent settings. Provided suction as needed. Stable.
[2018-02-22 00:53] VITALS: BP_SYST 112
[2018-02-22] MEDS: IPRATROPIUM BROM 0.5 MG/2.5 ML VIAL.NEB (ATROVENT) INH SCH ×4 (01:19→19:48)
[2018-02-22] MEDS: ALBUTEROL SULFATE 0.083% 2.5 MG/3 ML VIAL.NEB INH SCH ×4 (01:19→19:48)
[2018-02-22] MEDS: 0.45% NACL 1,000 ML IV SCH (02:55)
--- NOTE | 2018-02-22 03:06 | NUR ---
Patient is resting comfortably in bed with eyes closed. No SOB, no acute distress, no signs of pain or facial grimacing noted. Bed is locked, in the lowest position, 2x side rails up, bed alarm is on. IVF infusing at the ordered rate, see eMAR. Tolerating trach to vent settings and tolerating gtube feeding. Call light within reach.
[2018-02-22] MEDS: METOCLOPRAMIDE HCL 10 MG TABLET GT SCH ×3 (05:16→17:27)
--- NOTE | 2018-02-22 05:34 | NUR ---
Patient is resting comfortably in bed sleeping. no SOB, no acute distress, no signs of pain or facial grimacing. Tolerating trach to vent settings. Call light within reach.
[2018-02-22] MEDS: FERROUS SULFATE 300 MG/5 ML UDC GT SCH ×3 (06:08→17:26)
--- NOTE | 2018-02-22 07:20 | NUR ---
Opening Note: Patient laying in bed resting. Patient shows no signs of pain or discomfort. Trach intact and vent setting checked at bedside. No signs of SOB or distress noted. Colostomy bag intact, no leaking at this time. G-tube patent and intact running feeding @ 45 ml/hr. Hernandez catheter patent and intact with visible urine output. Wound vac intact with no leakage. ENE mattress on. PICC line patent and intact running IVF per MD orders. SCD's in place. Seizure precautions in place. Isolation precautions in place. Safety precautions in place; bed in lowest position, wheels locked, side rials x3, bed alarm activated and call light within reach. No needs at this time. Will continue to monitor.
[2018-02-22 08:46] VITALS: BP_SYST 120
[2018-02-22] MEDS: CALCIUM CARBONATE/VITAMIN D3 1 TAB TABLET GT SCH ×2 (08:49→21:34)
[2018-02-22] MEDS: CHOLECALCIFEROL (VITAMIN D3) 2,000 UNIT TABLET GT SCH (08:49)
[2018-02-22] MEDS: NAPH,MB-DB/K PH,MBDB 250 MG TAB GT SCH ×2 (08:49→21:34)
[2018-02-22] MEDS: PANTOPRAZOLE GRANULES PACKET 40 MG GT SCH ×2 (08:49→21:34)
[2018-02-22] MEDS: LACTOBACILLUS RHAMNOSUS GG 1 CAP CAPSULE GT SCH ×2 (08:49→21:34)
[2018-02-22] MEDS: POTASSIUM CHLORIDE 20 MEQ/PKT PACKET GT SCH ×2 (08:49→21:34)
[2018-02-22] MEDS: LACTULOSE 20 GM/30 ML UDC GT SCH ×2 (08:49→21:00)
[2018-02-22] MEDS: ASCORBIC ACID 500 MG TABLET GT SCH ×2 (08:49→21:34)
[2018-02-22] MEDS: MULTIVIT-MINERALS/FERROUS GLUC 15 ML UDC GT SCH ×2 (08:50→21:34)
[2018-02-22] MEDS: LevETIRAcetam 500 MG/5 ML UDC ORAL LIQUID GT SCH ×2 (08:50→21:33)
--- NOTE | 2018-02-22 10:08 | NUR ---
Rounds: Patient in bed resting. No signs of distress. Repositioned for comfort. No needs at this time. Will continue to monitor.
--- NOTE | 2018-02-22 10:20 | NUR ---
Wound Care: Wound care done to sacral area; cleansed wound with normal saline. Placed SurePrep onto bowen-wound and surrounding tissue. Applied Venelex ointment onto wound bed. Placed black Granufoam dressing into wound cavity. Covered with VAC drape. Made a bridge: Applied SurePrep to skin from VAC dressing to a non-bony portion of the hip. Cut a small hole into VAC dressing and run a piece of black Granufoam from VAC dressing to a non-bony portion of the hip. Attached suction attachment. Covered bridged area of Granufoam with VAC drape. Ran wound VAC at 125 mmHg, continuous. Seal checked, no leakage. Due to be changed on Tuesday02/24/2018.
--- NOTE | 2018-02-22 10:40 | NUR ---
Colostomy bag changed: Colostomy bag leaking. Old bag removed, cleansed area and applied new bag. Bag secure, no leakage.
[2018-02-22] MEDS: BALSAM PERU/CASTOR OIL 60 GM OINT...G. TP SCH (11:02)
[2018-02-22] MEDS: INSULIN REGULAR, HUMAN 100 UNITS/ML, 10 ML VIAL (novoLIN R) SUBCUT PRN ×2 (11:12→17:26)
--- NOTE | 2018-02-22 11:13 | NUR ---
Accucheck: Blood sugar 194, covered with 2 units Novolin R per sliding scale, see eMAR.
--- NOTE | 2018-02-22 12:02 | NUR ---
Rounds: Patient in bed resting, repositioned for comfort. Patient suctioned and vent settings checked. Morning medications tolerated well. Seizure precautions in place. Isolation precautions in place. Safety precautions in place and call light within reach. No needs at this time. Will continue to monitor.
[2018-02-22 12:41] VITALS: BP_SYST 143
--- NOTE | 2018-02-22 14:00 | NUR ---
Rounds: Patient in bed resting. No signs of distress. Repositioned for comfort. No needs at this time. Will continue to monitor.
--- NOTE | 2018-02-22 14:36 | NUR ---
WOUND RE-EVALUATION: Patient received in a Wolsey Bed with an Isoflex ENE mattress with low air-loss therapy, awake, alert, nonverbal. Patient is unable to turn in bed independently. Jeff Score is a 13. Intrinsic factors that delay wound healing: Diabetes Mellitus, Anemia. Extrinsic factors that delay wound healing: Immobility. Wound Assessment: 1. Sacral-Coccygeal area: Pressure ulcer, present on admission. Wound care performed by dayshift nurse this morning. Wound VAC dressing not removed for assessment secondary to doing so would decrease wound temperature and retard wound healing rate. Wound assessment provided by KRISTINE Vaughn. Wound bed has 60% pink tissue, 20% white tissue, 20% dark red/brown tissue. No odor, scant sanguineous drainage. Dark discolored tissue present on surrounding tissue. Wound measures 6.0 cm 6.4 cm x 3.2 cm. Undermining present at 12 o'clock, and from 2-4 o-clock. Periwound is white from 11-1 o'clock. Recommend continue: Cleanse wound with normal saline. Place SurePrep onto bowen-wound and surrounding tissue. Apply Venelex ointment onto wound bed. Place black Granufoam dressing into wound cavity. Cover with VAC drape. Make a bridge: Apply SurePrep to skin from VAC dressing to a non-bony portion of the hip. Cut a small hole into VAC dressing and run a piece of black Granufoam from VAC dressing to a non-bony portion of the hip. Attach suction attachment. Cover bridged area of Granufoam with VAC drape. Run wound VAC at 125 mmHg, continuous. Wound VAC dressing changes will be performed every Tuesday/Tuesday/Tuesday, and as needed for dressing soiling or dislodgement. Also recommend: Reposition patient side to side only every 2 hours with pillow support (place one pillow underneath trunk and one pillow underneath pelvic area). Off-load pressure areas with pillows for pressure re-distribution. Offload, elevate and float bilateral heels with one pillow lengthwise under each extremity at all times. Perform skin care and monitor skin integrity Q shift. Use moisture barrier cream on buttocks and other moisture susceptible areas QID and as needed for soiling. Maintain patient on a low air-loss mattress.
--- NOTE | 2018-02-22 16:01 | NUR ---
Rounds: Patient in bed resting, repositioned for comfort. Family at bedside. RT at bedside, educating family on suctioning patient and trach care. Vent settings checked. Free flush of 100 ml given, no signs of residual. Seizure precautions in place. Isolation precautions in place. Safety precautions in place and call light within reach. No needs at this time. Will continue to monitor.
[2018-02-22 16:09] VITALS: BP_SYST 126
--- NOTE | 2018-02-22 16:10 | NUR ---
RT NOTES: EDUCATION Family/Caregiver was given education on tracheal sxn, and was able to verbalized understanding. All questions answered. They were also advised to obtain more education from home health company to be familiar w/ patient's home health equipment/ suction protocol.
--- NOTE | 2018-02-22 16:26 | NUR ---
Discharge Planning: DCP spoke with Jerri at [facility] ) training for pt daughter and is arranged for 02/24/18, 02/27/18, 02/28/18 between 4-7pm. Jerri faxed a RX that needs a doctors signature and returned. DCP to follow up Addendum: 02/27/18 at 1225 by Drea Dangelo DP Correct of company name [employer] ([employer])(f [phone]); Not [facility].
--- NOTE | 2018-02-22 16:26 | NUR ---
Discharge Planning: SHELL MOLDING ROLLER BLAST OPERATOR received call from Thom ([phone]) at [facility] requesting more information regarding trach supplies. MORGAN connected Thom with the RT department at the hospital to confirm which supplies pt is using. MORGAN has updated DC information systems planner of progress with [facility] for RT supplies and trainings.
[2018-02-22] MEDS: EPOETIN ALFA 10,000 UNITS/ML VIAL SUBCUT SCH (17:27)
--- NOTE | 2018-02-22 17:27 | NUR ---
Accucheck: Blood Sugar 156, covered with 2 units Novolin R per sliding scale, see eMAR.
--- NOTE | 2018-02-22 18:11 | NUR ---
Closing Note: Patient laying in bed resting. Patient shows no signs of pain or discomfort. Trach intact and vent setting checked at bedside. No signs of SOB or distress noted. Colostomy bag intact, no leaking at this time. G-tube patent and intact running feeding @ 45 ml/hr. Hernandez catheter patent and intact with visible urine output. Wound vac intact with no leakage. ENE mattress on. PICC line patent and intact running IVF per MD orders. SCD's in place. Seizure precautions in place. Isolation precautions in place. Safety precautions in place; bed in lowest position, wheels locked, side rials x3, bed alarm activated and call light within reach. All needs met. Will endorse plan of care to NOC, nurse.
--- NOTE | 2018-02-22 19:51 | NUR ---
Initial Notes Received handoff report from offgoing nurse at the bedside. Patient is resting comfortably in bed with eyes opened. No SOB, no acute distress, no signs of pain or facial grimacing noted. Bed is locked, in the lowest position, 2x side rails up, bed alarm is on. Call light is within reach. Tolerating Gtube feeding. Tolerating trach to vent settings. IV fluids infusing at ordered rate, see eMAR.
[2018-02-22 20:00] VITALS: BP_SYST 128
--- NOTE | 2018-02-22 22:28 | NUR ---
Colostomy bag is leaking. Removed old colostomy bag. Cleansed abdominal area with soap and water, and CHG bath given. Applied zgaurd around the stoma where the wound is at. Sureprep applied to periwound area. Applied Colostomy bag. No leakage at this time. Patient is now clean and dry.
[2018-02-23] MEDS: IPRATROPIUM BROM 0.5 MG/2.5 ML VIAL.NEB (ATROVENT) INH SCH ×4 (00:41→19:27)
[2018-02-23] MEDS: ALBUTEROL SULFATE 0.083% 2.5 MG/3 ML VIAL.NEB INH SCH ×4 (00:41→19:27)
[2018-02-23 00:54] VITALS: BP_SYST 138
[2018-02-23] MEDS: METOCLOPRAMIDE HCL 10 MG TABLET GT SCH ×5 (00:55→23:49)
--- NOTE | 2018-02-23 01:00 | NUR ---
Patient is resting comfortably in bed. No SOB, no acute distress, no signs of pain or facial grimacing. Tolerating trach to vent settings. IVF infusing at ordered rate, see eMAR. GTUBE feeding changed as needed, and currently infusing at ordered rate, see eMAR. Bed is locked, in the lowest position, 2x side rails up, bed alarm is on. Call light within reach.
[2018-02-23] MEDS: 0.45% NACL 1,000 ML IV SCH (03:32)
--- NOTE | 2018-02-23 04:00 | NUR ---
Patient resting comfortably in bed, eyes closed. Tolerating trach to vent settings. Bed is locked, lowest position, 2x side rails up. Bed alarm is on. Call light within reach.
[2018-02-23] MEDS: FERROUS SULFATE 300 MG/5 ML UDC GT SCH ×3 (06:00→16:54)
--- NOTE | 2018-02-23 06:00 | NUR ---
IVF infusing at ordered rate, see eMAR. Tolerating GTUBE feeding. Trach to vent intact. Wound vac has minimal drainage noted, too small to measure.
--- NOTE | 2018-02-23 07:10 | NUR ---
Opening Note: Patient laying in bed resting. Patient shows no signs of pain or discomfort. Trach intact and vent setting checked at bedside. No signs of SOB or distress noted. Colostomy bag intact. G-tube patent and intact running feeding @ 45 ml/hr. Hernandez catheter patent and intact with visible urine output. Wound vac intact with no leakage. ENE mattress on. PICC line patent and intact running IVF per MD orders. SCD's in place. Seizure precautions in place. Isolation precautions in place. Safety precautions in place; bed in lowest position, wheels locked, side rials x3, bed alarm activated and call light within reach. No needs at this time. Will continue to monitor.
--- NOTE | 2018-02-23 07:11 | NUR ---
Closing Notes Handoff report given to oncoming dayshift nurse at the bedside. Patient is awake and alert, resting comfortably in bed. No SOB, no acute distress, no signs of pain or facial grimacing at this time. GTUBE feeding infusing at ordered rate. IVF infusing at ordered rate, see eMAR. Tolerating trach to vent settings. Bed is locked, in the lowest position, 2x side rails up, bed alarm is on. Call light is within reach. Fall and safety precautions maintained. All needs have been met during this shift.
[2018-02-23 08:06] VITALS: BP_SYST 148
[2018-02-23] MEDS: LACTULOSE 20 GM/30 ML UDC GT SCH ×2 (09:00→20:58)
[2018-02-23] MEDS: BALSAM PERU/CASTOR OIL 60 GM OINT...G. TP SCH (09:00)
[2018-02-23] MEDS: LevETIRAcetam 500 MG/5 ML UDC ORAL LIQUID GT SCH ×2 (09:18→21:09)
[2018-02-23] MEDS: CALCIUM CARBONATE/VITAMIN D3 1 TAB TABLET GT SCH ×2 (09:18→20:59)
[2018-02-23] MEDS: LACTOBACILLUS RHAMNOSUS GG 1 CAP CAPSULE GT SCH ×2 (09:19→20:59)
[2018-02-23] MEDS: MULTIVIT-MINERALS/FERROUS GLUC 15 ML UDC GT SCH ×2 (09:19→21:09)
[2018-02-23] MEDS: PANTOPRAZOLE GRANULES PACKET 40 MG GT SCH ×2 (09:19→20:59)
[2018-02-23] MEDS: ASCORBIC ACID 500 MG TABLET GT SCH ×2 (09:19→20:59)
[2018-02-23] MEDS: NAPH,MB-DB/K PH,MBDB 250 MG TAB GT SCH ×2 (09:19→21:09)
[2018-02-23] MEDS: CHOLECALCIFEROL (VITAMIN D3) 2,000 UNIT TABLET GT SCH (09:19)
[2018-02-23] MEDS: POTASSIUM CHLORIDE 20 MEQ/PKT PACKET GT SCH ×2 (09:19→20:59)
--- NOTE | 2018-02-23 10:15 | NUR ---
Rounds: Patient in bed resting. No signs of distress. Repositioned for comfort. No needs at this time. Will continue to monitor.
[2018-02-23] MEDS: INSULIN REGULAR, HUMAN 100 UNITS/ML, 10 ML VIAL (novoLIN R) SUBCUT PRN ×2 (11:47→20:57)
--- NOTE | 2018-02-23 11:48 | NUR ---
Accucheck: Blood sugar 166, covered with 2 units Novolin R per sliding scale, see eMAR.
--- NOTE | 2018-02-23 12:00 | NUR ---
Rounds: Patient in bed resting, repositioned for comfort. Patient suctioned and vent settings checked. Free flush given. Oral care provided. Morning medications tolerated well. Seizure precautions in place. Isolation precautions in place. Safety precautions in place and call light within reach. No needs at this time. Will continue to monitor.
[2018-02-23 12:02] VITALS: BP_SYST 143
--- NOTE | 2018-02-23 14:15 | NUR ---
Rounds: Patient in bed resting. No signs of distress. Repositioned for comfort. No needs at this time. Will continue to monitor.
[2018-02-23 16:02] VITALS: BP_SYST 136
--- NOTE | 2018-02-23 16:10 | NUR ---
Rounds: Patient in bed resting, repositioned for comfort. Vent settings checked. Free flush of 100 ml given, no signs of residual. Seizure precautions in place. Isolation precautions in place. Safety precautions in place and call light within reach. No needs at this time. Will continue to monitor.
--- NOTE | 2018-02-23 18:33 | NUR ---
PICC line dressing: PICC line dressing changed 02/18/2018, due to be changed 02/25/2018. Addendum: 02/23/18 at 1834 by Johana Greenfield RN Amended: Links added.
--- NOTE | 2018-02-23 18:40 | NUR ---
Closing Note: Patient laying in bed resting. Patient shows no signs of pain or discomfort. Trach intact and vent setting checked at bedside. No signs of SOB or distress noted. Colostomy bag intact. G-tube patent and intact running feeding @ 45 ml/hr. Hernandez catheter patent and intact with visible urine output. Wound vac intact with no leakage. ENE mattress on. PICC line patent and intact running IVF per MD orders. SCD's in place. Seizure precautions in place. Isolation precautions in place. Safety precautions in place; bed in lowest position, wheels locked, side rials x3, bed alarm activated and call light within reach. All needs met. Will endorse plan of care to NOC, nurse.
[2018-02-23 19:45] VITALS: BP_SYST 155
--- NOTE | 2018-02-23 19:45 | NUR ---
Opening notes Pt asleep, easily arousable, pt non-verbal, Mech vent dependent setting AC 14, TV 500, FiO2 30%, PEEP 5. VSS. SR on the monitor. MARIBEL PICC line double lumen dressing C/D/I fluid infusing as ordered. GT feeding at 45cc/hr Glucerna 1.5 no residual noted. LLQ Colostomy bag emptied 200 loose, brown stool. Pt tolerating feeding well. Pt on low air loss mattress, dre SCDs in place. Wound vac intact noted with brown drainage. Hernandez cath to gravity with yellow urine. HOB maintained elevated. Seizure precaution, Isolation precaution in place. Call light within reach. To monitor.
--- NOTE | 2018-02-23 20:00 | NUR ---
Oral care/Trache care Pt awake, eyes open. Oral care/trache suction provided. Noted small amount white thin secretion. HOB maintained elevated. Call light within reach. To jason.
--- NOTE | 2018-02-23 21:00 | NUR ---
Rounds/Blood sugar check Pt awake, meds passed via GT as ordered. HOB maintained elevated. Pt tolerated well. Blood sugar checked 158, 2 units Regular insulin administered per ss protocol. GT feeding resumed as ordered. To monitor.
--- NOTE | 2018-02-23 23:45 | NUR ---
Rounds Pt asleep, easily arousable. No s/s distress noted. Repositioned. Call light within reach. To monitor.
[2018-02-24] MEDS: ALBUTEROL SULFATE 0.083% 2.5 MG/3 ML VIAL.NEB INH SCH ×4 (01:14→19:46)
[2018-02-24] MEDS: IPRATROPIUM BROM 0.5 MG/2.5 ML VIAL.NEB (ATROVENT) INH SCH ×4 (01:14→19:46)
[2018-02-24 01:28] VITALS: BP_SYST 124
--- NOTE | 2018-02-24 02:50 | NUR ---
Rounds Pt asleep. No acute distress noted. Repositioned. HOB maintained elevated. To monitor.
--- NOTE | 2018-02-24 04:30 | NUR ---
Oral care/Trache care Pt asleep, easily awakens to stimuli. No s/s distress noted. Oral care provided/Trache suction, small amount noted. Water flush given as ordered. LLQ abd colostomy intact no leaking noted. Continuous GT feeding running at 45cc/hr as ordered. HOB maintained elevated. To monitor.
[2018-02-24] MEDS: FERROUS SULFATE 300 MG/5 ML UDC GT SCH ×3 (06:13→17:25)
[2018-02-24] MEDS: METOCLOPRAMIDE HCL 10 MG TABLET GT SCH ×3 (06:14→17:26)
[2018-02-24] MEDS: INSULIN REGULAR, HUMAN 100 UNITS/ML, 10 ML VIAL (novoLIN R) SUBCUT PRN ×3 (06:18→17:28)
[2018-02-24] MEDS: 0.45% NACL 1,000 ML IV SCH (06:19)
--- NOTE | 2018-02-24 06:25 | NUR ---
Closing notes Pt awake, no s/s distress or sob noted. No change in Mech vent settings. Blood sugar checked 156 2 units Regular insulin given per protocol. GT feeding running as ordered, pt tolerating well. Colostomy bag LLQ intact no leaking noted. IVF infusing as ordered R.UA PICC line. Abdullahi SCDs in place. Repositioned. Call light within reach. To endorse to AM nurse.
[2018-02-24 07:11] LABS: BASOPHILS % (AUTO) 0.3 % (0.0-2.0); EOSINOPHILS # (AUTO) 0.5 K/uL (0.0-0.4); EOSINOPHILS % (AUTO) 4.3 % (0.0-4.0); HEMATOCRIT 25.1 % (36-48); LYMPHOCYTES # (AUTO) 1.3 K/uL (1.0-5.5); MEAN CORPUSCULAR HEMOGLOBIN 25 pg (27-31); MEAN CORPUSCULAR HGB CONC 32 % (32-36); MEAN CORPUSCULAR VOLUME 79 fL (79.0-98.0); MONOCYTES # (AUTO) 0.6 K/uL (0.0-1.0); MONOCYTES % (AUTO) 4.7 % (1.7-9.3); NEUTROPHILS # (AUTO) 9.8 K/uL (1.8-7.7); NEUTROPHILS % (AUTO) 79.7 % (40.0-70.0); PLATELET COUNT (AUTO) 220 K/uL (130-430); RED BLOOD CELL COUNT(AUTO) 3.17 MIL/uL (4.2-6.2); RED CELL DISTRIBUTION WIDTH 21.4 % (9.0-15.0); WHITE BLOOD COUNT (AUTO) 12.1 K/uL (4.8-10.8)
[2018-02-24 07:34] LABS: CALCIUM 10.3 mg/dL (8.4-11.0); CREATININE 0.64 mg/dL (0.55-1.30); POTASSIUM 4.2 mmol/L (3.5-5.1)
[2018-02-24 07:42] LABS: ALBUMIN 1.9 g/dL (3.4-4.8); TOTAL BILIRUBIN 0.4 mg/dL (0.0-1.0)
[2018-02-24 08:00] VITALS: BP_SYST 127
--- NOTE | 2018-02-24 08:00 | NUR ---
AM NOTES IN BED, AWAKE, NON VERBAL. HAS TRACH CONNECTED TO VENT, TOLERATING SETTINGS. IVF INFUSING WELL ON THE RIGHT UPPER ARM PICC LINE. TOLERATING FEEDING OF GLUCERNA 1.2 AT 45ML/HR. MANJARREZ CATH DRAINING WELL. WOUND VAC ON THE SACRAL AREA, NO LEAKGAE NOTED. TURN AND REPOSITIONED. NO DISTRESS NOTED. CONTACT AND ASPIRATION PRECAUTION OBSERVED. WILL MONITOR.
[2018-02-24 08:03] LABS: RETICULOCYTE COUNT 2.8 % (0.5-1.5)
[2018-02-24] MEDS: POTASSIUM CHLORIDE 20 MEQ/PKT PACKET GT SCH ×2 (08:52→22:13)
[2018-02-24] MEDS: LACTOBACILLUS RHAMNOSUS GG 1 CAP CAPSULE GT SCH ×2 (08:52→22:12)
[2018-02-24] MEDS: LACTULOSE 20 GM/30 ML UDC GT SCH ×2 (08:52→22:13)
[2018-02-24] MEDS: CALCIUM CARBONATE/VITAMIN D3 1 TAB TABLET GT SCH ×2 (08:53→22:14)
[2018-02-24] MEDS: ASCORBIC ACID 500 MG TABLET GT SCH ×2 (08:53→22:14)
[2018-02-24] MEDS: MULTIVIT-MINERALS/FERROUS GLUC 15 ML UDC GT SCH ×3 (08:53→22:12)
[2018-02-24] MEDS: PANTOPRAZOLE GRANULES PACKET 40 MG GT SCH ×2 (08:53→22:14)
[2018-02-24] MEDS: CHOLECALCIFEROL (VITAMIN D3) 2,000 UNIT TABLET GT SCH (08:53)
[2018-02-24] MEDS: NAPH,MB-DB/K PH,MBDB 250 MG TAB GT SCH ×2 (08:53→22:13)
[2018-02-24] MEDS: LevETIRAcetam 500 MG/5 ML UDC ORAL LIQUID GT SCH ×2 (08:54→22:13)
[2018-02-24] MEDS: BALSAM PERU/CASTOR OIL 60 GM OINT...G. TP SCH (08:58)
--- NOTE | 2018-02-24 10:15 | NUR ---
Notes Turned and repositioned. oral care and sunctioning done.
--- NOTE | 2018-02-24 12:00 | NUR ---
Notes- turned and repositioned, oralcare done. sunctioning done. no distress noted. will continue to monitor.
[2018-02-24 12:12] VITALS: BP_SYST 108
--- NOTE | 2018-02-24 15:12 | NUR ---
WOUND RE-EVALUATION: Late note for 1511 secondary to patient care. Patient received in a [place] Bed with an Isoflex ENE mattress with low air-loss therapy, awake, alert, nonverbal. Patient is unable to turn in bed independently. Jeff Score is a 12. Intrinsic factors that delay wound healing: Diabetes Mellitus, Anemia. Extrinsic factors that delay wound healing: Immobility. Wound Assessment: 1. Sacral-Coccygeal area: Pressure ulcer, present on admission. Wound bed has 50% pink tissue, 40% light yellow tissue, 10% dark colored tissue (not eschar). No odor, scant sanguineous drainage. Dark discolored tissue present on surrounding tissue. Wound measures 6.5 cm 6.0 cm x 4.0 cm. Undermining present from 12-5 o-clock (12 o'clock measured 1.0 cm; 3 o'clock measured 1.8 cm). Periwound is white from 11-1 o'clock. Recommend continue: Cleanse wound with normal saline. Place SurePrep onto bowen-wound and surrounding tissue. Apply Venelex ointment onto wound bed. Place black Granufoam dressing into wound cavity. Cover with VAC drape. Make a bridge: Apply SurePrep to skin from VAC dressing to a non-bony portion of the hip. Cut a small hole into VAC dressing and run a piece of black Granufoam from VAC dressing to a non-bony portion of the hip. Attach suction attachment. Cover bridged area of Granufoam with VAC drape. Run wound VAC at 125 mmHg, continuous. Wound VAC dressing changes will be performed every Tuesday/Tuesday/Tuesday, and as needed for dressing soiling or dislodgement. Also recommend: Reposition patient side to side only every 2 hours with pillow support (place one pillow underneath trunk and one pillow underneath pelvic area). Off-load pressure areas with pillows for pressure re-distribution. Offload, elevate and float bilateral heels with one pillow lengthwise under each extremity at all times. Perform skin care and monitor skin integrity Q shift. Use moisture barrier cream on buttocks and other moisture susceptible areas QID and as needed for soiling. Maintain patient on a low air-loss mattress. Per attending nurse, home health is scheduled to come today for family training.
[2018-02-24 16:03] VITALS: BP_SYST 109
--- NOTE | 2018-02-24 16:10 | NUR ---
Notes- Home health care nurse and family at bedside and doing family training.
[2018-02-24] MEDS: EPOETIN ALFA 10,000 UNITS/ML VIAL SUBCUT SCH (17:26)
--- NOTE | 2018-02-24 17:59 | NUR ---
MD ROUNDS Seen by Dr. Valentine, made aware of sediments on urine. Md ordered to change ortiz catheter. family still having training at bedside. will endorse.
--- NOTE | 2018-02-24 18:24 | NUR ---
Notes Family at bedside and home health care nurse doing family training. no distress noted. will endorse
[2018-02-24 19:00] VITALS: BP_SYST 134
--- NOTE | 2018-02-24 19:15 | NUR ---
change of shift.pt.presents isolation status:contact;urine;esbl,sputum;mdro/crossing flagman,nares;mrsa.pt.present hx;cva;lt sided; paralysis,rt.lower extremity;weakness,rt.upper extremity presents;rom;active;gross movements.pt.presents trach/vent. pt.presents picc lone;rt.upper extremity;iv fluids infusing.pt.presents colostomy:llq-abdomen;intact.pt.presents g-tube;feed. pt. presents ortiz catheter.pt.presents wound-vac.wound;sacrum.call light/telephone w/in the pty's reach.
[2018-02-24 20:00] VITALS: BP_SYST 134
--- NOTE | 2018-02-24 20:00 | NUR ---
pt.assessed.v/s assessed:values w/in normal limits.pt.presents hx;cva;general weakness:lt.sided paralysis present;rt.leg rom compromised.rt.arm present general;rom gross movements.i have assessed the vent settings;settings corresponds to the recent dr's order's setting.pt.response:o2-sat%=100%per vent settings.tv;500,fio-2%=30%,a/c =14,peep;5. i have attended to the oral/tach care.i have attended to the oral/trach suction.i have assessed the picc line;intact;patent; iv fluids infusing.i have assessed the colostomy bag,patent;intact;fecal matter present.i have assessed the ortiz catheter; patent:urine content present.i have assessed the wound vac;patent;wound drainage present.i have assumed the care @the level;275ml.noted.i have assessed the pt's pain mgx;flacc method;pt.absent facial grimaces/body posturing.pt.repositioned. i have administered the g-tube flush:100ml.g-tube assessed;patent;feed infusing.call light/telephone placed w/in the pt's reach.
--- NOTE | 2018-02-24 21:00 | NUR ---
2100 medications administered via g-tube.keppra elixir administered.pain mgx;via flacc method utilized. pt.absent facial grimaces/body posturing.
--- NOTE | 2018-02-24 22:00 | NUR ---
pt.assessed.i have assessed the vent settings;pt's o2-sat%=100%.i have attended to the oral/trach care/oral trach suction. i have assessed the picc line;intact;patent;iv fluids infusing.i have assessed the colostomy bag;patent;fecal matter present. i have assessed th ortiz catheter;patent;urine content present.i have assessed the wound-vac;patent;wound drainage present. i have assessed the pt. re;pain mgx;flacc method utilized;pt.absent facial grimaces/body posturing.pt.repositioned.call light/ telephone placed w/on the pt's reach.
--- NOTE | 2018-02-25 | NUR ---
pt.assessed.v/s assessed.values w/in normal limits.vent-settings assessed;pt's response;o2-sat%=100%.i have assessed the wound vac;patent;return present.i have assessed the picc line;patent;iv fluids infusing.i have assessed the colostomy bag;patent; fecal matter present.i have assessed the ortiz catheter;patent;urine content present.i have assessed the pt.per flacc;method;pain mgx.pt.absent facial grimaces;body posturing.i have attended to the oral/trach suction.i have attended to the oral trach care.pt.repositioned.shorty light/telephone placed w/in the pt's reach.[id number] flush;1ooml administered.
[2018-02-25] MEDS: METOCLOPRAMIDE HCL 10 MG TABLET GT SCH ×5 (00:01→23:45)
[2018-02-25 00:35] VITALS: BP_SYST 123
[2018-02-25] MEDS: ALBUTEROL SULFATE 0.083% 2.5 MG/3 ML VIAL.NEB INH SCH ×4 (00:43→18:54)
[2018-02-25] MEDS: IPRATROPIUM BROM 0.5 MG/2.5 ML VIAL.NEB (ATROVENT) INH SCH ×4 (00:43→18:53)
--- NOTE | 2018-02-25 01:00 | NUR ---
i have attended to the change of the g-tube feed/g-tube tubing.i have attended to the wound care treatment per wound-care nsg.
[2018-02-25] MEDS: 0.45% NACL 1,000 ML IV SCH ×2 (02:51→10:04)
--- NOTE | 2018-02-25 04:00 | NUR ---
pt.assessed.vent settings assessed;o2-sat%=100%i have attended to the oral/trach care/oral /trach suction. i have assessed the picc line;intact;patent;iv fluids infusing.i have assessed the colostomy bag;intact;patent;fecal matter present.i have assessed the ortiz catheter;patent;urine content present,i have assessed the wound-vac;intact; patent:wound drainage present.i have assessed the pt;pain mgx;flacc method;pt.absent facial grimaces;body posturing. pt.repositioned.call light/telephone placed w/in the pt's reach.
[2018-02-25] MEDS: FERROUS SULFATE 300 MG/5 ML UDC GT SCH ×3 (05:07→17:09)
--- NOTE | 2018-02-25 06:00 | NUR ---
pt.assessed.i have assessed the vent settings;pt response;tolerating the settings;i have attended to the oral/trach care/oral trach suction/i have assessed the picc line;intact;patent.iv fluids; infusing;i have changed the picc line dsg.i have assessed the colostomy:intact;patent:fecal matter present.i have assessed the g-tune;patent;g-tube feed infusing.i have changed the g-tube feed bottle.tubing,i have changed th g-tube dsg.i have assessed the ortiz catheter;patent;urine content present.i have assessed the wound-vac;intact,patent;wound drainage present.pt.cleaned.pt.repositioned,.call light/telephone placed w/in the pt's reach. i have assessed the blood glucose;value;131mg/dl.i have administered the 0600a medications via g-tube.
[2018-02-25 08:00] VITALS: BP_SYST 120
--- NOTE | 2018-02-25 08:00 | NUR ---
Opening Note received report from assembler 1st shift RN, pt resting in bed, A&Ox1, respirations even and unlabored on mechanical ventilator, pt tolerating ventilator settings well, no respiratory distress noted, no pain noted using FLACC scale, no acute distress noted, PICC to right upper arm clean, dry, and intact, colostomy to left lower abdomen clean, dry, and intact, ortiz catheter draining to gravity, g-tube feeding Glucerna 1.5 @ 45ml/hr, side rails padded, SCDs in place, heels floating, wound vac in place, wound dressings completed yesterday, orders for wound care m/w/, dressings clean, dry, and intact, room close to nurses station, pt educated on use of call light and asked to call for assistance, call light in reach, bed in low and locked position, bed alarm on, fall, aspiration,isolation, and seizure precautions in place.
[2018-02-25] MEDS: BALSAM PERU/CASTOR OIL 60 GM OINT...G. TP SCH (09:00)
[2018-02-25] MEDS: PANTOPRAZOLE GRANULES PACKET 40 MG GT SCH ×2 (09:31→20:46)
[2018-02-25] MEDS: ASCORBIC ACID 500 MG TABLET GT SCH ×2 (09:31→20:46)
[2018-02-25] MEDS: NAPH,MB-DB/K PH,MBDB 250 MG TAB GT SCH ×2 (09:31→20:46)
[2018-02-25] MEDS: CHOLECALCIFEROL (VITAMIN D3) 2,000 UNIT TABLET GT SCH (09:31)
[2018-02-25] MEDS: LACTOBACILLUS RHAMNOSUS GG 1 CAP CAPSULE GT SCH ×2 (09:31→20:46)
[2018-02-25] MEDS: CALCIUM CARBONATE/VITAMIN D3 1 TAB TABLET GT SCH ×2 (09:31→20:46)
[2018-02-25] MEDS: MULTIVIT-MINERALS/FERROUS GLUC 15 ML UDC GT SCH (09:32)
[2018-02-25] MEDS: LACTULOSE 20 GM/30 ML UDC GT SCH ×2 (09:32→20:46)
[2018-02-25] MEDS: POTASSIUM CHLORIDE 20 MEQ/PKT PACKET GT SCH ×2 (09:32→20:46)
[2018-02-25] MEDS: LevETIRAcetam 500 MG/5 ML UDC ORAL LIQUID GT SCH ×2 (09:33→21:07)
--- NOTE | 2018-02-25 09:35 | NUR ---
Medication/Oral Care pt educated on medication use and side effects, pt tolerating tube feeding well, zero residual, pt tolerated medication administration well, no acute distress noted, pt educated on purpose and procedure for oral care, pt tolerated oral care well, pt educated on use and side effects of IV fluid administration, new bag of IV fluids hung at this time, pt repositioned, fall, aspiration, isolation, and seizure precautions in place. Addendum: 02/25/18 at 1015 by Carmen Dan RN add: venelex non-admin due to mold shifter RN completed wound care this AM. Addendum: 02/25/18 at 1023 by Carmen Dan RN correction: wound care completed yesterday, orders for wound care m/w/f, dressing is clean dry, and intact.
[2018-02-25] MEDS: INSULIN REGULAR, HUMAN 100 UNITS/ML, 10 ML VIAL (novoLIN R) SUBCUT PRN ×2 (11:47→21:05)
--- NOTE | 2018-02-25 11:59 | NUR ---
Blood glucose/Medication/Oral Care blood glucose 180, pt educated on use and side effects of insulin per sliding scale orders and all medications, pt tolerated medication administration well, pt tolerating tube feeding well, zero residual, pt educated on purpose and procedure for oral care, pt tolerated well, no acute distress noted, pt repositioned, heels floating, fall, aspiration, isolation, and seizure precautions in place.
[2018-02-25 12:02] VITALS: BP_SYST 125
--- NOTE | 2018-02-25 13:49 | NUR ---
RN Rounds pt resting in bed, tolerating ventilator settings well, no pain noted using FLACC scale, no acute distress noted, fall, aspiration, seizure, and isolation precautions in place.
--- NOTE | 2018-02-25 14:14 | NUR ---
Discharge Planning: Copied from Drea's note, also see SS support documentation. DCP spoke with Jerri at [facility] ) training for pt daughter and is arranged for 02/24/18, 02/27/18, 02/28/18 between 4-7pm. Jerri faxed a RX that needs a doctors signature and returned. DCP to follow up
--- NOTE | 2018-02-25 15:05 | NUR ---
RN Rounds pt resting in bed, awake, eyes open, no pain noted using FLACC scale, no acute distress noted, pt tolerating ventilator settings well, respirations even and unlabored, fall, aspiration, isolation, and seizure precautions in place.
[2018-02-25 16:03] VITALS: BP_SYST 124
--- NOTE | 2018-02-25 17:05 | NUR ---
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 Coli, Hx CVA Subjective Information Pt remains +unresponsive w/ TF infusing Glucerna 1.5 as per MD order. Evidence of multiple unused modulars at bedside -- Marques x3 and Prosource x4. Per EMR, TF Intakes: 1080 ml 02/24/18. Residuals: 5 ml 02/24/17. Output (stool): 200 ml 02/25/18. I/O: (-1575 ml) per 12 hours. Pt continues to benefit from an increase in nutrition support to aid for possible hypermetabolic state. Current Diet Order/Nutrition Support Glucerna 1.5 at 45 ml/hr, Marques BID, Prosource TID, Free Water Flush: 100 ml Q4h via GT x13 days Patient/Significant Other Unable To Verbalize Education Provided Not Indicated Pertinent Medications neutraphos, reglan, zofran, VIT D-3, protonix, culturelle, centrum, zinc sulfate, os-shorty, VIT C, ferrous sulfate, SSI, tums, lactulose Pertinent Labs POC BG 180 H 02/24/18: BG 159 H, BUN 63 H, H/H 8 L/25.1 L, WBC 12.1 H, ALB 1.9 L Height (Feet 5 feet Height (Inches) 3.00 inches Weight (Pounds) 152 pounds (01/17/18) BED SCALE WT: 186.5 lb (01/23/18); 168 lb (02/16/18); 177 lb (02/21/18); 176 lb (02/25/18)-- may be inaccurate d/t blankets/pillows Weight (Calculated Kilograms) 68.055781 kilograms Patient Weight 68.946 kg Body Mass Index 26.92 kg/m2 %IBW 133 [place]/Adjusted Body Weight IBW: 115 lb, 52 kg. Adj IBW (obesity): 124 lb, 56 kg Recent Weight Change No Weight Status Overweight Last BM 02/21/18 Food Allergies No Usual Diet At Home Unable to assess per EMR Skin Integrity Comment: Jeff scale: 11; per Satellite Installation Technician note 02/24/18: 1. Sacral-Coccygeal area: Pressure ulcer, present on admission. Wound bed has 50% pink tissue, 40% light yellow tissue, 10% dark colored tissue (not eschar). No odor, scant sanguineous drainage. Dark discolored tissue present on surrounding tissue. Wound measures 6.5 cm 6.0 cm x 4.0 cm. Undermining present from 12-5 o-clock (12 o'clock measured 1.0 cm; 3 o'clock measured 1.8 cm). Periwound is white from 11-1 o'clock. Estimated Energy Expenditure (kcals/day) 2119-0159 kcal/day (30-35 kcal/kg Adj IBW for sepsis, wound healing) Estimated Protein Required (g/day) 67-112 gm/day (1.2-2 gm/kg Adj IBW for sepsis, wound healing) Estimated Fluid Required (l/day) Per MD (ARF) Problem/Etiology/Signs/Symptoms Inadequate enteral nutrition related to metabolic demands as evidenced by current TF regimen meets 79% of estimated caloric needs and 94% of estimated protein needs. *improving Expected Outcomes/Goals - Monitor tolerance to EN support w/ goal of pt meeting at least 85% of estimated nutritional needs, labs trending WNL, normal GI function, and skin integrity/wt maintenance Dietitian Recommendations * Recommend Glucerna 1.5 at 45 ml/hr, Marques BID, Prosource TID, Free Water Flush: 100 ml Q4h via GT Provides: 1980 kcal/day, 139 gm protein/day, and 1420 ml free water/day Meets: 101% of upper end of estimated caloric needs and 124% of upper end of estimated protein needs Follow Up Moderate Risk: F/U in 3-5 days
--- NOTE | 2018-02-25 17:20 | NUR ---
Blood glucose/Medications/Oral Care/Tube feeding blood glucose 149, no insulin indicated per sliding scale orders, pt educated on use and side effects of all medications, pt tolerated medication administration well, pt educated on purpose and procedure for oral care, pt tolerated well, no acute distress noted, pt repositioned, HOB elevated, pt educated on use and side effects of tube feeding, new tube feeding with new tubing hung at this time @ 45ml/hr, pt tolerating well, heels floating, fall, aspiration, isolation, and seizure precautions in place. Addendum: 02/25/18 at 1739 by Carmen Dan RN add: pt educated on use and purpose of prosource and cindy supplements, pt tolerated prosource and cindy supplement via g-tube well, no acute distress noted.
--- NOTE | 2018-02-25 19:05 | NUR ---
Closing Note pt resting in bed, A&Ox1, respirations even and unlabored on mechanical ventilator, pt tolerating mechanical ventilator settings well, O2 Sat 100%, no pain noted using FLACC scale, no acute distress noted, PICC to right upper arm clean, dry, intact, and infusing well, g-tube infusing glucerna 1.5 @ 45ml/hr, colostomy to left lower quadrant intact, ortiz catheter draining to gravity, side rails padded, pt educated on use of call light and asked to call for assistance, call light in reach, bed in low and locked position, bed alarm on, fall, aspiration, isolation, and seizure precautions in place, care endorsed to Tiffanie CARMONA.
--- NOTE | 2018-02-25 19:40 | NUR ---
ROUNDS PATIENT IN BED, ON MECHANICAL VENTILATOR, VITALS STABLE, NON VERBAL, NO SIGNS OF ANY PAIN AND DISCOMFORT NOTED. ASSESSMENT DONE AND DOCUMENTED. SEE FLOWSHEET. ON G TUBE FEEDING WITH GLUCERNA 1.2 AT 45 ML/HR, NO RESIDUAL, TOLERATING FEEDING WELL. NEEDS ATTENDED TO. SECRETIONS SUCTIONED, TURNED AND REPOSITIONED AND MADE COMFORTABLE. SEIZURE PRECAUTION PADS IN PLACED. BED IN LOW AND LOCKED POSITION. WILL CONTINUE TO MONITOR.
--- NOTE | 2018-02-25 21:13 | NUR ---
MEDICATION DUE MEDICATIONS GIVEN PER G TUBE ORDERED, TOLERATED WELL. WILL CONTINUE TO MONITOR.
--- NOTE | 2018-02-26 00:04 | NUR ---
PATIENT RESTING: Patient resting quietly. No acute distress noted. Vital signs within normal range.
[2018-02-26 00:28] VITALS: BP_SYST 115
[2018-02-26] MEDS: ALBUTEROL SULFATE 0.083% 2.5 MG/3 ML VIAL.NEB INH SCH ×4 (01:28→19:32)
[2018-02-26] MEDS: IPRATROPIUM BROM 0.5 MG/2.5 ML VIAL.NEB (ATROVENT) INH SCH ×4 (01:28→19:32)
--- NOTE | 2018-02-26 02:16 | NUR ---
ROUNDS PATIENT ASLEEP, NO SOB NOR PAIN AND DISCOMFORT NOTED. WILL CONTINUE TO MONITOR.
--- NOTE | 2018-02-26 04:30 | NUR ---
WOUND VAC WOUND VAC NOT WORKING AND NOT SUCTIONING. WOUND VAC DRESSING CHANGE DONE AND FIXED. BED BATH GIVEN. COLOSTOMY BAG ALSO CHANGED. TURNED AND REPOSITIONED . WILL CONTINUE TO MONITOR.
[2018-02-26] MEDS: METOCLOPRAMIDE HCL 10 MG TABLET GT SCH ×3 (05:49→17:10)
[2018-02-26] MEDS: INSULIN REGULAR, HUMAN 100 UNITS/ML, 10 ML VIAL (novoLIN R) SUBCUT PRN ×3 (05:52→17:14)
[2018-02-26] MEDS: FERROUS SULFATE 300 MG/5 ML UDC GT SCH ×3 (05:57→17:11)
--- NOTE | 2018-02-26 06:55 | NUR ---
CLOSING NOTES PATIENT RESTING COMFORTABLY IN BED, VITALS STABLE, NO PAIN AND DISCOMFORT AT THIS TIME. ALL NEEDS ATTENDED TO. SAFETY MEASURES MAINTAINED. WILL ENDORSE TO INCOMING SHIFT NURSE.
[2018-02-26 07:44] LABS: BASOPHILS # (AUTO) 0.1 K/uL (0.0-0.2); BASOPHILS % (AUTO) 0.8 % (0.0-2.0); EOSINOPHILS # (AUTO) 0.4 K/uL (0.0-0.4); EOSINOPHILS % (AUTO) 3.5 % (0.0-4.0); HEMATOCRIT 27.9 % (36-48); HEMOGLOBIN 8.8 g/dL (12.0-16.0); LYMPHOCYTES # (AUTO) 1.1 K/uL (1.0-5.5); LYMPHOCYTES % (AUTO) 9.9 % (20.5-51.5); MEAN CORPUSCULAR HEMOGLOBIN 25 pg (27-31); MEAN CORPUSCULAR HGB CONC 32 % (32-36); MEAN CORPUSCULAR VOLUME 78 fL (79.0-98.0); MONOCYTES # (AUTO) 0.5 K/uL (0.0-1.0); MONOCYTES % (AUTO) 4.9 % (1.7-9.3); NEUTROPHILS # (AUTO) 9.1 K/uL (1.8-7.7); NEUTROPHILS % (AUTO) 80.9 % (40.0-70.0); PLATELET COUNT (AUTO) 142 K/uL (130-430); RED BLOOD CELL COUNT(AUTO) 3.57 MIL/uL (4.2-6.2); RED CELL DISTRIBUTION WIDTH 21.5 % (9.0-15.0); WHITE BLOOD COUNT (AUTO) 11.2 K/uL (4.8-10.8)
[2018-02-26 08:00] VITALS: BP_SYST 129
[2018-02-26 08:11] LABS: POTASSIUM 4.3 mmol/L (3.5-5.1)
[2018-02-26 08:12] LABS: CALCIUM 10.4 mg/dL (8.4-11.0); CREATININE 0.73 mg/dL (0.55-1.30)
[2018-02-26] MEDS: LACTULOSE 20 GM/30 ML UDC GT SCH ×2 (09:00→20:18)
[2018-02-26] MEDS: BALSAM PERU/CASTOR OIL 60 GM OINT...G. TP SCH (09:00)
[2018-02-26] MEDS: CALCIUM CARBONATE/VITAMIN D3 1 TAB TABLET GT SCH ×2 (09:06→20:19)
[2018-02-26] MEDS: MULTIVIT-MINERALS/FERROUS GLUC 15 ML UDC GT SCH (09:06)
[2018-02-26] MEDS: CHOLECALCIFEROL (VITAMIN D3) 2,000 UNIT TABLET GT SCH (09:06)
[2018-02-26] MEDS: POTASSIUM CHLORIDE 20 MEQ/PKT PACKET GT SCH ×2 (09:06→20:19)
[2018-02-26] MEDS: PANTOPRAZOLE GRANULES PACKET 40 MG GT SCH ×2 (09:06→20:19)
[2018-02-26] MEDS: LACTOBACILLUS RHAMNOSUS GG 1 CAP CAPSULE GT SCH ×2 (09:06→20:19)
[2018-02-26] MEDS: ASCORBIC ACID 500 MG TABLET GT SCH ×2 (09:06→20:19)
[2018-02-26] MEDS: NAPH,MB-DB/K PH,MBDB 250 MG TAB GT SCH ×2 (09:06→20:19)
[2018-02-26] MEDS: LevETIRAcetam 500 MG/5 ML UDC ORAL LIQUID GT SCH ×2 (09:07→20:20)
--- NOTE | 2018-02-26 10:11 | NUR ---
Rounds: Patient in bed resting. No signs of distress. Repositioned for comfort. No needs at this time. Will continue to monitor.
[2018-02-26] MEDS: 0.45% NACL 1,000 ML IV SCH (11:29)
[2018-02-26 11:45] VITALS: BP_SYST 125
--- NOTE | 2018-02-26 11:45 | NUR ---
Accucheck: Blood sugar 212, covered with 4 units Novolin R per sliding scale, see eMAR.
--- NOTE | 2018-02-26 14:00 | NUR ---
Rounds: Patient in bed resting. No signs of distress. Repositioned for comfort. No needs at this time. Will continue to monitor.
[2018-02-26] MEDS: SODIUM CHLORIDE 500 MG TABLET GT SCH ×2 (15:08→20:19)
--- NOTE | 2018-02-26 15:32 | NUR ---
MANJARREZ CATH CHANGED: # 28 FR Manjarrez catheter with 10 cc bulb inserted with use of sterile technique. Bulb inflated with 20 cc sterile water. Immediate return of yellow urine noted. Bedside drainage bag placed below level of bladder. Pt tolerated procedure well.
[2018-02-26 15:36] VITALS: BP_SYST 101
--- NOTE | 2018-02-26 17:15 | NUR ---
Accucheck: Blood suasgr Addendum: 02/26/18 at 1717 by Johana Greenfield RN Blood sugar 162, covered with 2 units Novolin R per sliding scale, see eMAR.
--- NOTE | 2018-02-26 19:40 | NUR ---
ROUNDS PATIENT RESTING COMFORTABLY IN BED, NON VERBAL, ON MECHANICAL VENTILATOR, VITALS STABLE, NO SIGNS OF ANY PAIN AND DISCOMFORT NOTED. SHIFT ASSESSMENT DONE AND DOCUMENTED. SEE FLOWSHEET. NEEDS ATTENDED TO. TURNED AND REPOSITIONED AND MADE COMFORTABLE. SECRETIONS SUCTIONED.SAFETY AND FALL PRECAUTION MEASURES IN PLACED. BED IN LOW AND LOCKED POSITION. WILL CONTINUE TO MONITOR.
[2018-02-26 20:00] VITALS: BP_SYST 118
--- NOTE | 2018-02-26 21:14 | NUR ---
MEDICATION DUE MEDICATIONS GIVEN ORDERED PER G TUBE, TOLERATED WELL. WILL CONTINUE TO MONITOR.
[2018-02-26 22:56] VITALS: BP_SYST 117
--- NOTE | 2018-02-27 00:05 | NUR ---
PATIENT RESTING: Patient resting quietly. No acute distress noted. Vital signs within normal range.
[2018-02-27] MEDS: METOCLOPRAMIDE HCL 10 MG TABLET GT SCH ×5 (00:31→23:14)
[2018-02-27] MEDS: IPRATROPIUM BROM 0.5 MG/2.5 ML VIAL.NEB (ATROVENT) INH SCH ×4 (01:22→19:56)
[2018-02-27] MEDS: ALBUTEROL SULFATE 0.083% 2.5 MG/3 ML VIAL.NEB INH SCH ×4 (01:22→19:56)
--- NOTE | 2018-02-27 02:27 | NUR ---
ROUNDS PATIENT ASLEEP, NO SOB NOR PAIN AND DISCOMFORT NOTED, WILL CONTINUE TO MONITOR.
--- NOTE | 2018-02-27 04:13 | NUR ---
PATIENT RESTING: Patient resting quietly. No acute distress noted. Vital signs within normal range.
[2018-02-27] MEDS: INSULIN REGULAR, HUMAN 100 UNITS/ML, 10 ML VIAL (novoLIN R) SUBCUT PRN ×3 (06:13→17:16)
[2018-02-27] MEDS: FERROUS SULFATE 300 MG/5 ML UDC GT SCH ×3 (06:14→16:18)
[2018-02-27] MEDS: 0.45% NACL 1,000 ML IV SCH (06:14)
--- NOTE | 2018-02-27 06:46 | NUR ---
CLOSING NOTES PATIENT RESTING COMFORTABLY IN BED, VITALS STABLE, NO SIGNS OF ANY PAIN NOTED AT THIS TIME. ALL NEEDS ATTENDED TO. SAFETY AND FALL PRECAUTION MEASURES MAINTAINED. WILL ENDORSE TO INCOMING SHIFT NURSE.
[2018-02-27 07:35] LABS: CALCIUM 9.8 mg/dL (8.4-11.0); CREATININE 0.84 mg/dL (0.55-1.30); POTASSIUM 4.4 mmol/L (3.5-5.1); THYROID STIMULATING HORMONE 4.82 uIu/mL (0.34-4.82)
[2018-02-27] MEDS: LACTULOSE 20 GM/30 ML UDC GT SCH ×2 (08:50→21:23)
[2018-02-27] MEDS: MULTIVIT-MINERALS/FERROUS GLUC 15 ML UDC GT SCH (08:50)
[2018-02-27] MEDS: SODIUM CHLORIDE 500 MG TABLET GT SCH ×3 (08:51→21:23)
[2018-02-27] MEDS: POTASSIUM CHLORIDE 20 MEQ/PKT PACKET GT SCH ×2 (08:51→21:23)
[2018-02-27] MEDS: NAPH,MB-DB/K PH,MBDB 250 MG TAB GT SCH ×2 (08:51→21:23)
[2018-02-27] MEDS: ASCORBIC ACID 500 MG TABLET GT SCH ×2 (08:51→21:23)
[2018-02-27] MEDS: LACTOBACILLUS RHAMNOSUS GG 1 CAP CAPSULE GT SCH ×2 (08:51→21:23)
[2018-02-27] MEDS: LevETIRAcetam 500 MG/5 ML UDC ORAL LIQUID GT SCH ×2 (08:51→21:29)
[2018-02-27] MEDS: CALCIUM CARBONATE/VITAMIN D3 1 TAB TABLET GT SCH ×2 (08:51→21:23)
[2018-02-27] MEDS: CHOLECALCIFEROL (VITAMIN D3) 2,000 UNIT TABLET GT SCH (08:52)
[2018-02-27] MEDS: BALSAM PERU/CASTOR OIL 60 GM OINT...G. TP SCH (08:53)
[2018-02-27] MEDS: PANTOPRAZOLE GRANULES PACKET 40 MG GT SCH ×2 (08:54→21:23)
--- NOTE | 2018-02-27 10:54 | NUR ---
Discharge Planning: MORGAN placed call to Joseph ([phone]) from [facility] to discuss ventilator trainings; MORGAN left Joseph a message; MORGAN will continue to follow up with Joseph for an update on training status. Addendum: 02/27/18 at 1415 by Sudha Keith LCSW MORGAN spoke with Joseph who stated that he is working on obtaining a letter to present to administration at [facility] regarding the need to bring in [facility]'s ventilator to complete family training and to test pt's tolerability with [facility] ventilator.
[2018-02-27 11:23] VITALS: BP_SYST 129
[2018-02-27] MEDS ORDERED: HYDROmorphone 2 MG/ML VIAL ONE (11:47)
--- NOTE | 2018-02-27 11:48 | NUR ---
BS 177. 2 units of RI is given per sliding scale.
[2018-02-27 14:19] VITALS: BP_SYST 129
--- NOTE | 2018-02-27 15:00 | NUR ---
PATIENT IS RESTING; TURNED AND REPOSITIONED FOR COMFORT, NO SIGNS OF DISTRESS NOTED.
[2018-02-27 15:12] VITALS: BP_SYST 119
[2018-02-27] MEDS: EPOETIN ALFA 10,000 UNITS/ML VIAL SUBCUT SCH (16:18)
--- NOTE | 2018-02-27 18:00 | NUR ---
BLOOD SUGAR 164. 2 UNITS OF RI IS GIVEN.
--- NOTE | 2018-02-27 18:30 | NUR ---
PATIENT VOMITED. GTUBE FEEDING IS PUT ON HOLD. PATIENT IS CLEANED.
[2018-02-27 20:00] VITALS: BP_SYST 132
--- NOTE | 2018-02-27 20:00 | NUR ---
Initial Note Received patient arousable, awake but nonverbal. No SOB or grimacing noted. Will monitor for vomiting. Kept HOB elevated. Trach vent settings checked. Will do oral care. Family at the bedside listening to the RT education when patient gets home. Gt feeding on hold for now. IVF infusing. Wound vac in place. F/C intact and draining well. IVF infusing. SCDs. Care and monitoring will be provided per protocol. Call light within reach. Bed alarm on and at lowest position at all times. Kept warm and comfortable.
--- NOTE | 2018-02-27 21:20 | NUR ---
RN Note Family left. No residual noted. Due meds given via GT. Flushed with free water. Will hold GT feeding for an hour more. VS stable. Patient responds by moving her head and opens her eyes when you call her by her name. Moves and lifts her right arm at times. PICC line on MARIBEL, dressing CDI. Colostomy bag in place. Latest blood sugar was 120, no coverage given. Repositioned. Changed pads and gown. Kept clean, dry and comfortable. Isolation and skin precautions observed.
--- NOTE | 2018-02-27 23:00 | NUR ---
RN Note No residual noted. Due med given. Flushed free water and resumed GT feeding. Will monitor tolerance to feeding and for vomiting episodes. Oral care done. Repositioned. Kept warm and comfortable.
[2018-02-28] MEDS: IPRATROPIUM BROM 0.5 MG/2.5 ML VIAL.NEB (ATROVENT) INH SCH ×4 (00:05→19:18)
[2018-02-28] MEDS: ALBUTEROL SULFATE 0.083% 2.5 MG/3 ML VIAL.NEB INH SCH ×5 (00:05→19:18)
--- NOTE | 2018-02-28 01:00 | NUR ---
RN Note New GT feeding bag hanged. No residual and vomiting noted. Flushed free water. Repositioned. Not congested. Kept warm and comfortable.
[2018-02-28 01:36] VITALS: BP_SYST 134
[2018-02-28] MEDS: 0.45% NACL 1,000 ML IV SCH ×2 (02:38→21:19)
--- NOTE | 2018-02-28 03:00 | NUR ---
RN Note Arousable. No congestion or grimacing noted. Repositioned. Kept comfortable.
[2018-02-28] MEDS: FERROUS SULFATE 300 MG/5 ML UDC GT SCH ×3 (05:42→18:04)
[2018-02-28] MEDS: METOCLOPRAMIDE HCL 10 MG TABLET GT SCH ×3 (05:42→18:06)
--- NOTE | 2018-02-28 06:43 | NUR ---
End Note Afebrile. VS stable. Awake and alert. Vent settings checked. Oral care done. No SOB or facial grimacing noted throughout the night. No vomiting or seizure episodes noted. GT feeding was held for 2 hours last night due to vomiting at the change of shift and then resumed. No residual noted. RT came last night and given education to the family. No complain of n/v at this time. Urine output sufficient. IVF and GT feeding infusing. Wound vac in place with output of 30 ml. Latest blood sugar was 134, no coverage given. MARIBEL PICC dressing CDI. SCDs. Care and monitoring provided per protocol. Needs attended. Call light within reach. Bed alarm on at lowest position at all times. Isolation and skin precautions observed. Repositioned every 2 hours. Emptied colostomy bag with brown loose stools. Kept clean,warm and comfortable.
[2018-02-28 08:00] VITALS: BP_SYST 130
--- NOTE | 2018-02-28 08:00 | NUR ---
initial notes rec patient with hob elevated. trache connected to a mechanical ventilator. resp easy and unlabored.no acute distress noted. hob slightly elevated and resp easy and unlabored. gt feeding osman well, no residual noted. colostomy with small amount of liquid stool. will continue to monitor patient.
[2018-02-28] MEDS: BALSAM PERU/CASTOR OIL 60 GM OINT...G. TP SCH (09:00)
[2018-02-28] MEDS: CHOLECALCIFEROL (VITAMIN D3) 2,000 UNIT TABLET GT SCH (09:51)
[2018-02-28] MEDS: POTASSIUM CHLORIDE 20 MEQ/PKT PACKET GT SCH ×2 (09:51→20:51)
[2018-02-28] MEDS: SODIUM CHLORIDE 500 MG TABLET GT SCH ×3 (09:51→20:51)
[2018-02-28] MEDS: PANTOPRAZOLE GRANULES PACKET 40 MG GT SCH ×2 (09:51→20:51)
[2018-02-28] MEDS: LACTOBACILLUS RHAMNOSUS GG 1 CAP CAPSULE GT SCH ×2 (09:51→20:51)
[2018-02-28] MEDS: ASCORBIC ACID 500 MG TABLET GT SCH ×2 (09:51→20:51)
[2018-02-28] MEDS: MULTIVIT-MINERALS/FERROUS GLUC 15 ML UDC GT SCH (09:52)
[2018-02-28] MEDS: LevETIRAcetam 500 MG/5 ML UDC ORAL LIQUID GT SCH ×2 (09:52→20:51)
[2018-02-28] MEDS: CALCIUM CARBONATE/VITAMIN D3 1 TAB TABLET GT SCH ×2 (09:53→20:52)
[2018-02-28 11:36] VITALS: BP_SYST 130
[2018-02-28] MEDS: LACTULOSE 20 GM/30 ML UDC GT SCH ×2 (11:52→20:51)
--- NOTE | 2018-02-28 12:00 | NUR ---
rounds no hypo hyperglycemic reaction noted. due meds given as ordered.suctioned obtaining thin whitish secretions.
[2018-02-28] MEDS: INSULIN REGULAR, HUMAN 100 UNITS/ML, 10 ML VIAL (novoLIN R) SUBCUT PRN ×2 (12:38→21:02)
[2018-02-28] MEDS: NAPH,MB-DB/K PH,MBDB 250 MG TAB GT SCH ×2 (12:51→21:00)
--- NOTE | 2018-02-28 14:00 | NUR ---
rounds turned, repositioned, suctioned, and oral care rendered at bedside. made comfortable. no acute distress noted.
[2018-02-28 15:24] VITALS: BP_SYST 122
--- NOTE | 2018-02-28 16:00 | NUR ---
rounds turned repositioned for comfort. bed to the lowest position and side rails up and locked. no acute distress.
--- NOTE | 2018-02-28 18:30 | NUR ---
closing notes made patient comfortable. turned repositioned for comfort. no acute distress noted. bed to the lowest position and side rails up and locked. gt no residual noted. trache suctioned prn and obtaining mod amount of thin whitish phlegm.
--- NOTE | 2018-02-28 19:50 | NUR ---
Initial Note Received patient arousable, awake and moves her right arm but nonverbal. No SOB or grimacing noted. Kept HOB elevated. Trach vent settings checked. Oral care done. GT feeding and IVF infusing. Wound vac in place. Sacral dressing CDI, no leaking noted. New wound vac canister placed today. F/C intact and draining well. SCDs. Heels off bed. Colostomy bag intact with brown loose stool. GT dressing CDI. Isolation precaution observed. Care and monitoring will be provided per protocol. Call light within reach. Bed alarm on and at lowest position at all times. Kept warm and comfortable.
[2018-02-28 20:00] VITALS: BP_SYST 135
--- NOTE | 2018-02-28 21:00 | NUR ---
RN Note No residual noted. Due meds given via GT. Flushed free water. No vomiting noted. Repositioned. Emptied colostomy bag. Pads are slightly soiled with urine. Skin care provided. HOB elevated. Heels off bed. Latest blood sugar was 163, coverage given. Kept clean, dry and comfortable.
--- NOTE | 2018-02-28 23:00 | NUR ---
RN Note Sleeping at this time. No SOB or grimacing noted. GT feeding and IVF infusing.
[2018-02-28 23:18] VITALS: BP_SYST 143
--- NOTE | 2018-02-28 23:56 | NUR ---
End Note No changes from previous assessment. No distress noted. Endorsed to KRISTINE Packer.
--- NOTE | 2018-03-01 | NUR ---
Initial RN Note Assumed nursing care of pt after report was obtained from nurse Emily. Pt is resting quietly in bed and no acute distress noted. IVF of 1/2NS is infusing well via MARIBEL PICC at 60ml/hr. PICC dressing is dry and intact. Skin is warm and dry to touch. No signs or symptoms of hypoglycemia or hyperglycemia noted. G Tube feeding of Glucerna is in progress at 45ml/hr with residual of 5ml. Pt is tolerating vent settings via Tracheostomy well. Wound vac at 125mm/Hg to sacral-coccygeal wound noted and small amount of brownish drainage noted. Hernandez Cath to gravity drainage noted with clear yellowish urine. Fall and safety precautions are in place. Call light is with pt and bed alarm is on.
[2018-03-01] MEDS: METOCLOPRAMIDE HCL 10 MG TABLET GT SCH ×4 (00:21→17:45)
--- NOTE | 2018-03-01 01:20 | NUR ---
Colostomy Bag Change Colostomy bag change done. Stoma pinkish.
[2018-03-01] MEDS: IPRATROPIUM BROM 0.5 MG/2.5 ML VIAL.NEB (ATROVENT) INH SCH ×4 (01:37→19:55)
[2018-03-01] MEDS: ALBUTEROL SULFATE 0.083% 2.5 MG/3 ML VIAL.NEB INH SCH ×4 (01:38→19:55)
--- NOTE | 2018-03-01 03:30 | NUR ---
Rounds Pt is sleeping comfortably in bed and tolerating GTF and vent settings well. Fall and safety precautions are in place. Wound vac is intact without any leakage noted.
--- NOTE | 2018-03-01 05:00 | NUR ---
Rounds Pt is resting comfortably in bed. No distress noted at this time. Wound vac is intact with no leakage noted.
[2018-03-01] MEDS: FERROUS SULFATE 300 MG/5 ML UDC GT SCH ×3 (06:43→16:01)
--- NOTE | 2018-03-01 06:55 | NUR ---
Closing Note Pt is awake and resting comfortably in bed. Wound vac is intact with no leakage noted. IVF is infusing well via MARIBEL PICC. Pt is tolerating Vent settings and G Tube feeding well. All pt's needs were attended to. Pt was suctioned both orally and via Tracheostomy as needed. Side to side turning was done as ordered and HOB is up 30 degrees to prevent aspiration. No fall or injury noted this shift. Accucheck 149 this AM and no Insulin coverage needed. Skin remains warm and dry to touch. Will endorse to day shift nurse.
--- NOTE | 2018-03-01 08:00 | NUR ---
OPENING NOTE: RECEIVED REPORT FROM NIGHT NURSE. PATIENT IS RESTING COMFORTABLY IN BED. NO S/S OF DISTRESS OR SOB. PATIENT RECEIVED ON TRACH WITH SETTINGS SET UP BY RESPIRATORY THERAPIST BASED ON MD ORDERS. VITAL SIGNS UPDATED IN FLOWSHEET. PATIENT WITH MANJARREZ CATHETER DRAINING TO GRAVITY. PATIENT WITH TUBE-FEEDING SET AT RATE OF 45. PICC LINE IS PATENT AND INFUSING. COLOSTOMY BAG IN PLACE, NO FULL OR LEAKING. WOUND VAC FUNCTIONING PROPERLY. PATIENT ON CONTACT ISOLATION. ORAL CARE DONE. CALL LIGHT IN REACH, BED IN LOWEST POSITION, AND WILL CONTINUE TO MONITOR.
[2018-03-01 08:12] VITALS: BP_SYST 122
[2018-03-01] MEDS: NAPH,MB-DB/K PH,MBDB 250 MG TAB GT SCH ×2 (09:10→21:16)
[2018-03-01] MEDS: LACTULOSE 20 GM/30 ML UDC GT SCH ×2 (09:10→21:15)
[2018-03-01] MEDS: CALCIUM CARBONATE/VITAMIN D3 1 TAB TABLET GT SCH ×2 (09:10→21:16)
[2018-03-01] MEDS: MULTIVIT-MINERALS/FERROUS GLUC 15 ML UDC GT SCH (09:10)
[2018-03-01] MEDS: PANTOPRAZOLE GRANULES PACKET 40 MG GT SCH ×2 (09:11→21:16)
[2018-03-01] MEDS: CHOLECALCIFEROL (VITAMIN D3) 2,000 UNIT TABLET GT SCH (09:11)
[2018-03-01] MEDS: LevETIRAcetam 500 MG/5 ML UDC ORAL LIQUID GT SCH ×2 (09:11→21:16)
[2018-03-01] MEDS: SODIUM CHLORIDE 500 MG TABLET GT SCH ×3 (09:11→21:16)
[2018-03-01] MEDS: LACTOBACILLUS RHAMNOSUS GG 1 CAP CAPSULE GT SCH ×2 (09:11→21:16)
[2018-03-01] MEDS: ASCORBIC ACID 500 MG TABLET GT SCH ×2 (09:11→21:16)
[2018-03-01] MEDS: POTASSIUM CHLORIDE 20 MEQ/PKT PACKET GT SCH ×2 (09:11→21:15)
[2018-03-01] MEDS: BALSAM PERU/CASTOR OIL 60 GM OINT...G. TP SCH (09:12)
[2018-03-01] MEDS: 0.45% NACL 1,000 ML IV SCH ×2 (09:13→12:06)
--- NOTE | 2018-03-01 09:30 | NUR ---
WOUND VAC DRESSING CHANGED ACCORDING TO POLICY. PICTURE WAS TAKEN AND PLACED IN CHART. PATIENT TOLERATED WELL. NO LEAKS. WILL CONTINUE TO MONITOR.
--- NOTE | 2018-03-01 12:00 | NUR ---
RN ROUNDS PATIENT IS SLEEPING COMFORTABLY IN BED. NO S/S OF DISTRESS OR SOB. INSULIN COVERAGE GIVEN BASED ON MEDICATION ORDERS FOR BLOOD SUGAR OF 211. PATIENT ON TOLERATING VENT SETTINGS AND TUBE-FEEDINGS. PATIENT REPOSITIONED. CALL LIGHT IN REACH, BED IN LOWEST POSITION, AND WILL CONTINUE TO MONITOR.
[2018-03-01] MEDS: INSULIN REGULAR, HUMAN 100 UNITS/ML, 10 ML VIAL (novoLIN R) SUBCUT PRN ×2 (12:08→17:47)
--- NOTE | 2018-03-01 14:08 | NUR ---
RN ROUNDS PATIENT IS RESTING COMFORTABLY IN BED. NO S/S OF DISTRESS OR SOB. DR. BYRNES MADE ROUNDS. NO NEEDS AT THIS TIME. PATIENT REPOSITIONED. CALL LIGHT IN REACH, BED IN LOWEST POSITION, AND WILL CONTINUE TO MONITOR.
--- NOTE | 2018-03-01 16:00 | NUR ---
RN ROUNDS PATIENT IS RESTING COMFORTABLY IN BED. NO S/S OF DISTRESS OR SOB. PATIENT IS AWAKE WITH EYES OPENS. PATIENT JUST STARES, NO RESPONSE. IV FLUIDS ARE INFUSING. NO ISSUES WITH WOUND VAC. ORAL CARE DONE AND PATIENT WAS REPOSITIONED. CALL LIGHT IN REACH, BED IN LOWEST POSITION, AND WILL CONTINUE TO MONITOR.
[2018-03-01 16:01] VITALS: BP_SYST 120
[2018-03-01] MEDS: EPOETIN ALFA 10,000 UNITS/ML VIAL SUBCUT SCH (17:45)
--- NOTE | 2018-03-01 18:20 | NUR ---
CLOSING NOTE: PATIENT IS RESTING COMFORTABLY IN BED. NO S/S OF DISTRESS OR SOB. PATIENT IS AWAKE, NONVERBAL. MANJARREZ DRAINING TO GRAVITY. TUBE-FEEDING WAS JUST TURNED OFF DUE TO PATIENT VOMITING. WILL ENDORSE TO NURSE CLINICIAN TO RESUME ONCE PATIENT IS STABLE. ALL NEEDS MET DURING SHIFT. CALL LIGHT IN REACH, BED IN LOWEST POSITION, AND WILL CONTINUE TO MONITOR. Addendum: 03/01/18 at 1842 by Kae Horner RN *WILL GIVE REPORT TO NIGHT NURSE.
--- NOTE | 2018-03-01 19:30 | NUR ---
Initial PM Note Pt was received lying in bed awake, but non-verbal. No acute distress noted at this time. IVF of 1/2NS is infusing well via MARIBEL PICC at 60ml/hr. PICC dressing is dry and intact. Skin is warm and dry to touch. No signs or symptoms of hypoglycemia or hyperglycemia noted. G Tube feeding of Glucerna is off at this time due to emesis earlier. Pt is tolerating vent settings via Tracheostomy well. Wound vac at 125mm/Hg to sacral-coccygeal wound noted and small amount of pinkish drainage noted. No evidence of leakage noted. Hernandez Cath to gravity drainage noted with clear yellowish urine. Fall, seizure and safety precautions are in place.
[2018-03-01 20:00] VITALS: BP_SYST 131
--- NOTE | 2018-03-01 21:15 | NUR ---
Blood Sugar Accucheck 123 and no Insulin coverage needed. Skin remains warm and dry to touch. GTF is in progress and no emesis noted.
--- NOTE | 2018-03-02 | NUR ---
Rounds Pt is tolerating GTF well. No emesis noted.
[2018-03-02 00:32] VITALS: BP_SYST 123
[2018-03-02] MEDS: METOCLOPRAMIDE HCL 10 MG TABLET GT SCH ×5 (00:34→23:13)
[2018-03-02] MEDS: ALBUTEROL SULFATE 0.083% 2.5 MG/3 ML VIAL.NEB INH SCH ×4 (00:44→19:29)
[2018-03-02] MEDS: IPRATROPIUM BROM 0.5 MG/2.5 ML VIAL.NEB (ATROVENT) INH SCH ×4 (00:44→19:29)
--- NOTE | 2018-03-02 04:30 | NUR ---
Colostomy Bag Change Colostomy bag noted with large amount of liquid brownish stool. Colostomy bag change was done. Stoma pinkish.
[2018-03-02] MEDS: 0.45% NACL 1,000 ML IV SCH ×2 (04:46→23:12)
--- NOTE | 2018-03-02 05:00 | NUR ---
G Tube Site Dressing Change G Tube site dressing change was done. Scanty amount of dry brownish drainage noted on old dressing. No odor noted.
[2018-03-02 06:04] LABS: ALBUMIN 1.9 g/dL (3.4-4.8); CALCIUM 9.1 mg/dL (8.4-11.0); CREATININE 0.76 mg/dL (0.55-1.30); POTASSIUM 4.3 mmol/L (3.5-5.1); TOTAL BILIRUBIN 0.3 mg/dL (0.0-1.0)
[2018-03-02] MEDS: FERROUS SULFATE 300 MG/5 ML UDC GT SCH ×3 (06:10→17:02)
[2018-03-02] MEDS: INSULIN REGULAR, HUMAN 100 UNITS/ML, 10 ML VIAL (novoLIN R) SUBCUT PRN ×3 (06:16→17:22)
--- NOTE | 2018-03-02 06:38 | NUR ---
Closing Note Pt is awake and resting comfortably in bed. Fall and safety precautions are in place. All pt's needs were attended to. No fall or injury noted this shift. IVF is infusing well via MARIBEL PICC. Pt is tolerating GTF and vent settings well. Will endorse to day shift nurse.
[2018-03-02 06:43] LABS: BASOPHILS % (AUTO) 0.3 % (0.0-2.0); EOSINOPHILS # (AUTO) 0.3 K/uL (0.0-0.4); HEMATOCRIT 24.2 % (36-48); HEMOGLOBIN 7.8 g/dL (12.0-16.0); LYMPHOCYTES # (AUTO) 1.3 K/uL (1.0-5.5); LYMPHOCYTES % (AUTO) 12.2 % (20.5-51.5); MEAN CORPUSCULAR HEMOGLOBIN 25 pg (27-31); MEAN CORPUSCULAR HGB CONC 32 % (32-36); MEAN CORPUSCULAR VOLUME 77 fL (79.0-98.0); MONOCYTES # (AUTO) 0.4 K/uL (0.0-1.0); MONOCYTES % (AUTO) 3.7 % (1.7-9.3); NEUTROPHILS # (AUTO) 8.9 K/uL (1.8-7.7); NEUTROPHILS % (AUTO) 80.8 % (40.0-70.0); PLATELET COUNT (AUTO) 243 K/uL (130-430); RED BLOOD CELL COUNT(AUTO) 3.14 MIL/uL (4.2-6.2); RED CELL DISTRIBUTION WIDTH 20.8 % (9.0-15.0); WHITE BLOOD COUNT (AUTO) 10.9 K/uL (4.8-10.8)
--- NOTE | 2018-03-02 07:42 | NUR ---
OPENING NOTE PT IN BED EYES CLOSED, NO DISTRESS, TRACH TO VENT NOTED, G-TUBE INFUSING NOTED, IVF ALSO INFUSING. BED IN LOWEST POSITION.
[2018-03-02 08:00] VITALS: BP_SYST 127
[2018-03-02] MEDS: BALSAM PERU/CASTOR OIL 60 GM OINT...G. TP SCH (09:00)
[2018-03-02] MEDS: LACTULOSE 20 GM/30 ML UDC GT SCH ×2 (10:08→20:47)
[2018-03-02] MEDS: CALCIUM CARBONATE/VITAMIN D3 1 TAB TABLET GT SCH ×2 (10:09→20:46)
[2018-03-02] MEDS: SODIUM CHLORIDE 500 MG TABLET GT SCH ×3 (10:09→20:47)
[2018-03-02] MEDS: POTASSIUM CHLORIDE 20 MEQ/PKT PACKET GT SCH ×2 (10:09→20:46)
[2018-03-02] MEDS: ASCORBIC ACID 500 MG TABLET GT SCH ×2 (10:09→20:46)
[2018-03-02] MEDS: NAPH,MB-DB/K PH,MBDB 250 MG TAB GT SCH ×2 (10:09→20:46)
[2018-03-02] MEDS: LACTOBACILLUS RHAMNOSUS GG 1 CAP CAPSULE GT SCH ×2 (10:09→20:47)
[2018-03-02] MEDS: CHOLECALCIFEROL (VITAMIN D3) 2,000 UNIT TABLET GT SCH (10:09)
[2018-03-02] MEDS: PANTOPRAZOLE GRANULES PACKET 40 MG GT SCH ×2 (10:10→20:47)
[2018-03-02] MEDS: MULTIVIT-MINERALS/FERROUS GLUC 15 ML UDC GT SCH (10:10)
[2018-03-02] MEDS: LevETIRAcetam 500 MG/5 ML UDC ORAL LIQUID GT SCH ×2 (10:10→20:48)
[2018-03-02 11:35] VITALS: BP_SYST 127
[2018-03-02] MEDS ORDERED: EPOETIN ALFA 4,000 UNITS/ML VIAL SUBCUT ONE (12:15)
[2018-03-02] MEDS: SOD FERRIC GLUC COMPLEX/SUC 125 MG in NS 100 ML IV SCH (13:47)
--- NOTE | 2018-03-02 13:54 | NUR ---
pt given Ferrlecit and Procrit as ordered as this time. no distress noted.
[2018-03-02 16:32] VITALS: BP_SYST 133
--- NOTE | 2018-03-02 16:48 | NUR ---
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 Coli, Hx CVA 03/02/18 ID Note: septic shock (resolved) Subjective Information Pt seen awake but non-verbal w/ TF infusing as per MD orders. Evidence of Prosource x1 at bedside. Per RN, pt hasn't received either Marques or Prosource during day shift. Per EMR, TF Intakes: 450 ml 03/02/18. Residuals: 0 ml 03/02/17. Output (stool): 300 ml 03/02/18. I/O: 1170/875 (+295 ml) per 12 hours. Pt continues to benefit from an increase in nutrition support to aid for possible hypermetabolic state. Current Diet Order/Nutrition Support Glucerna 1.5 at 45 ml/hr, Marques BID, Prosource TID, Free Water Flush: 100 ml Q4h via GT x18 days Patient/Significant Other Unable To Verbalize Education Provided Not Indicated Pertinent Medications neutraphos, reglan, zofran, VIT D-3, protonix, culturelle, centrum, zinc sulfate, os-shorty, VIT C, ferrous sulfate, SSI, tums, lactulose, ferric sodium gluconate/NaCl IV, KCl packet Pertinent Labs POC BG 167 H, BG 157 H, BUN 45 H, H/H 7.8 L/24.2 L, WBC 10.9 H, ALB 1.9 L, Na 135 L Height (Feet 5 feet Height (Inches) 3.00 inches Weight (Pounds) 152 pounds (01/17/18) BED SCALE WT: 186.5 lb (01/23/18); 168 lb (02/16/18); 177 lb (02/21/18); 176 lb (02/25/18)-- may be inaccurate d/t blankets/pillows Weight (Calculated Kilograms) 68.791165 kilograms Patient Weight 68.946 kg Body Mass Index 26.92 kg/m2 %IBW 133 [place]/Adjusted Body Weight IBW: 115 lb, 52 kg. Adj IBW (obesity): 124 lb, 56 kg Recent Weight Change No Weight Status Overweight Last BM 02/21/18 Food Allergies No Usual Diet At Home Unable to assess per EMR Skin Integrity Comment: Jeff scale: 31; per Transit Survey Worker note 02/24/18: 1. Sacral-Coccygeal area: Pressure ulcer, present on admission. Wound bed has 50% pink tissue, 40% light yellow tissue, 10% dark colored tissue (not eschar). No odor, scant sanguineous drainage. Dark discolored tissue present on surrounding tissue. Wound measures 6.5 cm 6.0 cm x 4.0 cm. Undermining present from 12-5 o-clock (12 o'clock measured 1.0 cm; 3 o'clock measured 1.8 cm). Periwound is white from 11-1 o'clock. Estimated Energy Expenditure (kcals/day) 4477-0554 kcal/day (30-35 kcal/kg Adj IBW for wound healing) Estimated Protein Required (g/day) 67-112 gm/day (1.2-2 gm/kg Adj IBW for wound healing) Estimated Fluid Required (l/day) Per MD (ARF) Problem/Etiology/Signs/Symptoms Inadequate enteral nutrition related to metabolic demands as evidenced by current TF regimen meets 79% of estimated caloric needs and 94% of estimated protein needs. *improving Expected Outcomes/Goals - Monitor tolerance to EN support w/ goal of pt meeting at least 85% of estimated nutritional needs, labs trending WNL, normal GI function, and skin integrity/wt maintenance Dietitian Recommendations * Recommend contiuing Glucerna 1.5 at 45 ml/hr, Marques BID, Prosource TID, Free Water Flush: 100 ml Q4h via GT Provides: 1980 kcal/day, 139 gm protein/day, and 1420 ml free water/day Meets: 101% of upper end of estimated caloric needs and 124% of upper end of estimated protein needs Follow Up Moderate Risk: F/U in 3-5 days
--- NOTE | 2018-03-02 17:47 | NUR ---
PT RESTING NO DISTRESS, SAFETY MAINTAINED.
--- NOTE | 2018-03-02 18:53 | NUR ---
closing note all needs met through shift,safety maintained, will endorse care to night warehouse selector.
--- NOTE | 2018-03-02 19:05 | NUR ---
Opening notes Received report. Patient is resting in bed, eyes open. No signs of distress noted. Patient tolerating well on current vent settings. PICC line intact infusing fluids. Hernandez catheter in place. Tube feeding in place. Bilateral SCDs in place. Safety and seizure precautions in place.
[2018-03-02 20:00] VITALS: BP_SYST 141
--- NOTE | 2018-03-02 20:55 | NUR ---
Scheduled meds Scheduled meds given at this time. Minimal amount of residual noted. Accucheck 147. No insulin coverage necessary. Educated the action and side effects of medications. Patient unable to verbalize understanding due to condition. Patient tolerated well.
--- NOTE | 2018-03-02 23:00 | NUR ---
RN rounds Patient resting in bed, eyes opened. Repositioned patient for comfort. No signs of distress noted. Safety precautions in place.
[2018-03-03 00:28] VITALS: BP_SYST 142
--- NOTE | 2018-03-03 01:00 | NUR ---
RN rounds Patient resting in bed. No signs of distress noted. Safety precautions in place.
[2018-03-03] MEDS: IPRATROPIUM BROM 0.5 MG/2.5 ML VIAL.NEB (ATROVENT) INH SCH ×4 (01:29→19:58)
[2018-03-03] MEDS: ALBUTEROL SULFATE 0.083% 2.5 MG/3 ML VIAL.NEB INH SCH ×4 (01:29→19:58)
--- NOTE | 2018-03-03 04:06 | NUR ---
Wound vac and Colostomy bag change Changed wound vac dressing. No leakage noted. Colostomy bag changed. Loose stool noted in bag. Patient tolerated well.
--- NOTE | 2018-03-03 05:30 | NUR ---
Gtube dressing change G tube dressing changed at this time. No drainage noted. No redness or skin breakdown. Patient tolerated well.
[2018-03-03] MEDS: METOCLOPRAMIDE HCL 10 MG TABLET GT SCH ×4 (06:01→23:29)
[2018-03-03] MEDS: FERROUS SULFATE 300 MG/5 ML UDC GT SCH ×3 (06:01→17:16)
[2018-03-03] MEDS: INSULIN REGULAR, HUMAN 100 UNITS/ML, 10 ML VIAL (novoLIN R) SUBCUT PRN ×3 (06:05→17:20)
--- NOTE | 2018-03-03 06:28 | NUR ---
Closing notes Patient resting in bed, eyes open. No signs of distress noted. Patient tolerating vent settings. O2 sat 98%. Trach is intact. PICC line is patent and intact infusing fluids. G tube is intact infusing feeding. Hernandez catheter is in place draining urine. Wound vac is in place. All needs met. Practice guidelines met throughout the shift. Call light is with the patient. Safety and seizure precautions in place. Will endorse care to day shift RN.
--- NOTE | 2018-03-03 07:15 | NUR ---
Opening Note patient sitting up in bed, awake and alert, no signs of distress, no SOB, IV fluids infusing, ortiz draining via gravity, wound vac to suction, positioned with pillow support, HOB elevated,safety, isolation and aspiration precautions remain in place, will continue to monitor
[2018-03-03] MEDS: NAPH,MB-DB/K PH,MBDB 250 MG TAB GT SCH ×2 (08:39→21:28)
[2018-03-03] MEDS: SODIUM CHLORIDE 500 MG TABLET GT SCH ×3 (08:39→21:27)
[2018-03-03] MEDS: POTASSIUM CHLORIDE 20 MEQ/PKT PACKET GT SCH ×2 (08:40→21:28)
[2018-03-03] MEDS: LACTULOSE 20 GM/30 ML UDC GT SCH ×2 (08:40→21:26)
[2018-03-03] MEDS: ASCORBIC ACID 500 MG TABLET GT SCH ×2 (08:40→21:27)
[2018-03-03] MEDS: BALSAM PERU/CASTOR OIL 60 GM OINT...G. TP SCH (08:40)
[2018-03-03] MEDS: CHOLECALCIFEROL (VITAMIN D3) 2,000 UNIT TABLET GT SCH (08:40)
[2018-03-03] MEDS: LevETIRAcetam 500 MG/5 ML UDC ORAL LIQUID GT SCH ×2 (08:40→21:27)
[2018-03-03] MEDS: PANTOPRAZOLE GRANULES PACKET 40 MG GT SCH ×2 (08:40→21:28)
[2018-03-03] MEDS: MULTIVIT-MINERALS/FERROUS GLUC 15 ML UDC GT SCH (08:40)
[2018-03-03] MEDS: LACTOBACILLUS RHAMNOSUS GG 1 CAP CAPSULE GT SCH ×2 (08:40→21:27)
[2018-03-03] MEDS: CALCIUM CARBONATE/VITAMIN D3 1 TAB TABLET GT SCH ×2 (08:40→21:27)
[2018-03-03 08:50] VITALS: BP_SYST 128
--- NOTE | 2018-03-03 09:10 | NUR ---
Medication Administration/Dr. Safia Jamil/Colostomy Bag Changed g-tube assessed, 0 residual, medications administered as scheduled, patient showed no signs of SOB on mechanical ventilator. Dr. Safia jamil at this time, examined patient. Patient's colostomy bag was changed at this time because was leaking, patient tolerated well, stoma within normal limits, periwound in tact, ortiz draining via gravity, wound vac to suction, safety, isolation and aspiration precautions in place, will continue to monitor
--- NOTE | 2018-03-03 10:15 | NUR ---
Spoke with Jada from [facility] [employer] asked if everything going okay with wound vac, stated if we need more supplies to call Aldair Rodriguez . He works directly with our hospital
[2018-03-03] MEDS: SOD FERRIC GLUC COMPLEX/SUC 125 MG in NS 100 ML IV SCH (11:12)
--- NOTE | 2018-03-03 11:16 | NUR ---
Blood Sugar assessed, insulin provided per sliding scale, scheduled medications administered at this time, patient tolerated well, g-tube had 0 residual, IV site remains patent, patient positioned with pillow support, HOB remains elevated, no signs of distress, safety, isolation and aspiration precautions in place, bedside table and call light within reach, will continue to monitor patient
[2018-03-03 12:15] VITALS: BP_SYST 116
--- NOTE | 2018-03-03 13:20 | NUR ---
Patient Resting in Bed no signs of distress, HOB elevated, tracheal suction provided, positioned with pillow support, safety, isolation and aspiration precautions remain in place, call light and bedside table left within reach, will continue to monitor
--- NOTE | 2018-03-03 15:45 | NUR ---
Suctioning Provided at this time, patient tolerated well, wound vac to suction and ortiz remains to gravity, safety, isolation and aspiration precautions remain in place, call light and bedside table left within reach, will continue to monitor
--- NOTE | 2018-03-03 15:49 | NUR ---
Discharge Planning: MORGAN is working with [facility] and Administration to obtain the approval to have [facility] bring their ventilator in to hospital to complete family training and pt trial on ventilator. MORGAN is waiting for documentation from [facility].
[2018-03-03 16:25] VITALS: BP_SYST 127
[2018-03-03] MEDS: EPOETIN ALFA 10,000 UNITS/ML VIAL SUBCUT SCH (17:16)
--- NOTE | 2018-03-03 17:30 | NUR ---
Medication/Blood Sugar insulin provided per sliding scale, patient tolerated medications well, no signs of distress, she is positioned with pillow support, HOB remains elevated, family was at bedside, safety, isolation and aspiration precautions in place, bedside table and call light within reach, will continue to monitor patient
[2018-03-03] MEDS: 0.45% NACL 1,000 ML IV SCH (18:16)
--- NOTE | 2018-03-03 18:57 | NUR ---
Closing Note patient resting in bed, awake and alert, HOB elevated, tracheal suctioning provided, she is positioned with pillow support, ortiz draining via gravity, colostomy in tact, wound vac to suction, safety, isolation, and aspiration precautions remain in place, will endorse to [employer] resource teacher nurse
--- NOTE | 2018-03-03 19:39 | NUR ---
OPENING NOTE PT RESTING IN BED WITH EYES CLOSED. NO SIGNS OF ACUTE DISTRESS NOTED, IVF INFUSING ORDERED. FEEDING INFUSING ORDERED. WILL CONTINUE TO MONITOR.
[2018-03-03 20:00] VITALS: BP_SYST 102
--- NOTE | 2018-03-03 21:25 | NUR ---
ACCUCHECK ACCUCHECK DONE, BLOOD GLUCOSE LEVEL 124. NO INSULIN COVERAGE NEEDED PER SLIDING SCALE. WILL CONTINUE TO MONITOR.
--- NOTE | 2018-03-03 23:47 | NUR ---
REPOSITIONED/LINENS CHANGED PT REPOSITIONED FOR COMFORT. GOWN AND LINEN CHANGED. PT TOLERATING VENT SETTINGS WELL. IVF INFUSING ORDERED. TUBE FEEDING RUNNING ORDERED. SAFETY PRECAUTIONS IN PLACE: BED IN LOWEST POSITION, CALL LIGHT WITH PT, SIDE RAILS UP X 3, BED ALARM ON. WILL MONITOR.
[2018-03-04] MEDS: 0.45% NACL 1,000 ML IV SCH ×2 (00:05→17:46)
--- NOTE | 2018-03-04 01:41 | NUR ---
RN ROUNDS PT RESTING IN BED WITH EYES OPEN. APPEARS COMFORTABLE, NO SIGNS OF ACUTE DISTRESS NOTED. IVF INFUSING, TUBE FEEDING RUNNING, MANJARREZ CATHETER INTACT AND DRAINING TO GRAVITY, TOLERATING VENT SETTINGS WELL. WILL MONITOR.
[2018-03-04 02:35] VITALS: BP_SYST 141
[2018-03-04] MEDS: IPRATROPIUM BROM 0.5 MG/2.5 ML VIAL.NEB (ATROVENT) INH SCH ×4 (03:14→19:45)
[2018-03-04] MEDS: ALBUTEROL SULFATE 0.083% 2.5 MG/3 ML VIAL.NEB INH SCH ×4 (03:15→19:45)
--- NOTE | 2018-03-04 03:30 | NUR ---
CENTRAL LINE DRESSING CHANGE Patient's dressing to right upper arm PICC line was changed using sterile technique. Chlorhexidine biopatch device and statlock applied. IV fluids were resumed at ordered rate. Patient tolerated well. Site was dated, timed and initialed by RN.
--- NOTE | 2018-03-04 04:51 | NUR ---
COLOSTOMY BAG CHANGE DUE TO LEAK CHANGED COLOSTOMY BAG AND COMPLETE LINEN AND GOWN CHANGE. PT REPOSITIONED FOR COMFORT. PT TOLERATED WELL. SAFETY PRECAUTIONS IN PLACE: BED IN LOWEST POSITION, CALL LIGHT WITH PT, BED ALARM ON, SIDE RAILS UP X 3. WILL MONITOR.
[2018-03-04] MEDS: FERROUS SULFATE 300 MG/5 ML UDC GT SCH ×3 (06:11→17:33)
[2018-03-04] MEDS: METOCLOPRAMIDE HCL 10 MG TABLET GT SCH ×4 (06:11→23:25)
--- NOTE | 2018-03-04 06:32 | NUR ---
CLOSING NOTE PT RESTING COMFORTABLY IN BED WITH EYES CLOSED. ASPIRATION, CONTACT, FALL, AND PRESSURE PRECAUTIONS ARE IN PLACE. MANJARREZ CATHETER DRAINING WELL TO GRAVITY, COLOSTOMY IS INTACT, IVF INFUSING ORDERED, FEEDING RUNNING AT ORDERED RATE, WOUND VAC IS TO SUCTION. WILL ENDORSE CARE TO DAY SHIFT RN.
[2018-03-04 08:00] VITALS: BP_SYST 149
--- NOTE | 2018-03-04 08:00 | NUR ---
Note Pt resting in bed with respiratory therapist giving pt breathing treatment at this time. Mechanical vent oxygenating pt well at this time.MARIBEL PICC intact and patent infusing IVF's well. GT site intact and benign infusing feedings well. Hernandez catheter intact and draining, has some leaking around the catheter site. Pt turned q2' and given hygiene/bowen care. No SOB/resp distress or pain/discomfort noted at this time. LLQ colostomy bag intact and draining well at this time. Lower extremity (feet) elevated on pillows at this time. Wound vac from sacral wound intact and draining. Pt next to nurses' station for close observation and care. Call light within reach.
[2018-03-04] MEDS: PANTOPRAZOLE GRANULES PACKET 40 MG GT SCH ×2 (08:56→20:26)
[2018-03-04] MEDS: LACTOBACILLUS RHAMNOSUS GG 1 CAP CAPSULE GT SCH ×2 (08:57→20:26)
[2018-03-04] MEDS: CHOLECALCIFEROL (VITAMIN D3) 2,000 UNIT TABLET GT SCH (08:57)
[2018-03-04] MEDS: POTASSIUM CHLORIDE 20 MEQ/PKT PACKET GT SCH ×2 (08:57→20:26)
[2018-03-04] MEDS: ASCORBIC ACID 500 MG TABLET GT SCH ×2 (08:57→20:26)
[2018-03-04] MEDS: CALCIUM CARBONATE/VITAMIN D3 1 TAB TABLET GT SCH ×2 (08:57→20:26)
[2018-03-04] MEDS: SODIUM CHLORIDE 500 MG TABLET GT SCH ×3 (08:57→20:26)
[2018-03-04] MEDS: NAPH,MB-DB/K PH,MBDB 250 MG TAB GT SCH ×2 (08:57→20:26)
[2018-03-04] MEDS: LACTULOSE 20 GM/30 ML UDC GT SCH ×2 (08:58→20:24)
[2018-03-04] MEDS: LevETIRAcetam 500 MG/5 ML UDC ORAL LIQUID GT SCH ×2 (08:59→20:25)
[2018-03-04] MEDS: MULTIVIT-MINERALS/FERROUS GLUC 15 ML UDC GT SCH (09:56)
[2018-03-04] MEDS: BALSAM PERU/CASTOR OIL 60 GM OINT...G. TP SCH (09:56)
--- NOTE | 2018-03-04 10:55 | NUR ---
Note Pt resting well in bed - no needs noted and call light within reach. RN doing rounds q1' and PRN for needs and care. Pt's colostomy bag was changed early this am by NOC RN and PICC dressing needs to be changed on 03/11/18. Wound vac changed MW. Next wound vac change to be done Tuesday.
[2018-03-04] MEDS: SOD FERRIC GLUC COMPLEX/SUC 125 MG in NS 100 ML IV SCH (11:40)
[2018-03-04 11:50] VITALS: BP_SYST 140
[2018-03-04] MEDS: INSULIN REGULAR, HUMAN 100 UNITS/ML, 10 ML VIAL (novoLIN R) SUBCUT PRN (11:55)
--- NOTE | 2018-03-04 13:25 | NUR ---
Note Pt resting in bed. No needs noted. Wound vac intact and draining well at this time. Mechanical ventilator oxygenating pt well at this time. Pt checked on q1' and PRN all shift for needs and care. Lower extremities are elevated on pillows and colostomy bag intact and draining. Call light within reach.
[2018-03-04 15:03] VITALS: BP_SYST 134
--- NOTE | 2018-03-04 16:00 | NUR ---
Note Pt resting in bed - no needs noted at this time. Mechanical trach ventilating pt well. Call light within reach. No needs noted at this time.
[2018-03-04] MEDS: ONDANSETRON HCL 4 MG/2 ML VIAL IVP PRN (17:03)
--- NOTE | 2018-03-04 18:30 | NUR ---
Note Pt was turned q2' and PRN all shift for comfort. PICC in MARIBEL intact and patent infusing IVF's well. Dressing of PICC dry,clean and intact at this time. GT feedings held since 1800 - pt had episode of emesis - Zofran IVP was given. Pt had resp treatments as scheduled and PRN all shift. Pt's trach was suctioned for excessive excretions all shift. Hernandez catheter intact and draining. Pt was checked on q1' and PRN all shift for needs and care. Mechanical trach was ventilating pt well all shift. No needs noted at this time. Call light within reach. Pt stable at this time.
--- NOTE | 2018-03-04 19:20 | NUR ---
OPENING NOTE RECEIVED CARE OF PT AND BEDSIDE REPORT. PT AWAKE, RESTING IN BED, IVF INFUSING TO PICC IN RIGHT UPPER ARM, PICC DRESSING DRY AND INTACT, HOB IS ELEVATED. MANJARREZ DRAINING TO GRAVITY, WOUND VAC TO SUCTION. PT REPOSITIONED FOR COMFORT AND LINENS CHANGED. SAFETY, ISOLATION, AND ASPIRATION PRECAUTIONS IN PLACE. WILL MONITOR. Addendum: 03/04/18 at 2206 by Nemo Garcia RN NOTICED MANJARREZ WAS LEAKING TO CHUX PAD.
[2018-03-04 20:00] VITALS: BP_SYST 139
--- NOTE | 2018-03-04 20:30 | NUR ---
NURSING NOTE PT IN BED, EYES OPEN, APPEARS COMFORTABLE. PT IS APHASIC. MOVEMENT OF RIGHT ARM NOTED. MANJARREZ CATHETER LEAKING, 5 ML OF NS ADDED TO MANJARREZ BALLOON. MANJARREZ CATHETER DRAINING WELL TO GRAVITY. G-TUBE IS INTACT, FLUSHING WELL, NO RESIDUAL AT THIS TIME. NO REDNESS NOTED AROUND G-TUBE SITE. PT IS TOLERATING VENT SETTINGS WELL, O2 SATURATION IS AT 99%. VENT SETTINGS AT: RESPIRATORY RATE 14, TV 500, FIO2 30%, PEEP 5. PICC LINE DRESSING IS DRY AND INTACT. PICC LINE FLUSHING WELL. WILL CONTINUE TO MONITOR.
--- NOTE | 2018-03-04 22:13 | NUR ---
NURSING NOTE PT RESTING IN BED, EYES OPEN. PT SUCTIONED DUE TO COUGHING R/T SECRETIONS. PT TOLERATED WELL. PT REPOSITIONED FOR COMFORT. IVF INFUSING ORDERED. TUBE FEEDING RUNNING @ 45 ML/HR. WOUND VAC TO SUCTION. SAFETY, ASPIRATION, AND CONTACT PRECAUTIONS OBSERVED. WILL MONITOR.
--- NOTE | 2018-03-04 23:58 | NUR ---
RN ROUNDS PT RESTING IN BED WITH EYES CLOSED. NO SIGNS OF ACUTE DISTRESS NOTED AT THIS TIME. MANJARREZ DRAINING TO GRAVITY, TUBE FEEDING RUNNING AT 45 ML/HR, IVF INFUSING AT 60 ML/HR, WOUND VAC TO SUCTION. PT TOLERATING VENT SETTINGS WELL, SYMMETRICAL RISE AND FALL OF CHEST. WILL MONITOR.
[2018-03-05 00:10] VITALS: BP_SYST 129
[2018-03-05] MEDS: IPRATROPIUM BROM 0.5 MG/2.5 ML VIAL.NEB (ATROVENT) INH SCH ×3 (01:40→19:42)
[2018-03-05] MEDS: ALBUTEROL SULFATE 0.083% 2.5 MG/3 ML VIAL.NEB INH SCH ×3 (01:41→19:41)
--- NOTE | 2018-03-05 02:00 | NUR ---
RN ROUNDS PT RESTING IN BED WITH EYES CLOSED. SYMMETRICAL RISE AND FALL OF CHEST. TOLERATING VENT SETTINGS WELL. IVF INFUSING ORDERED. TUBE FEEDING RUNNING AT 45 ML/HR. WOUND VAC TO SUCTION. MANJARREZ CATHETER DRAINING WELL TO GRAVITY. NO SIGNS OF ACUTE DISTRESS AT THIS TIME. SAFETY, ASPIRATION, SEIZURE, AND CONTACT PRECAUTIONS IN PLACE. WILL MONITOR.
--- NOTE | 2018-03-05 03:58 | NUR ---
RN NOTES PT RESTING COMFORTABLY IN BED WITH EYES CLOSED, BREATHING IS EVEN AND UNLABORED TO VENT SETTINGS, IVF INFUSING AT ORDERED RATE, TUBE FEEDING IS RUNNING AT 45 ML/HOUR, WOUND VAC IS TO SUCTION. NO SIGN OF ACUTE DISTRESS NOTED AT THIS TIME. SAFETY, ASPIRATION, CONTACT, AND SEIZURE PRECAUTIONS OBSERVED. WILL CONTINUE TO MONITOR.
--- NOTE | 2018-03-05 05:15 | NUR ---
COLOSTOMY BAG CHANGE/AM CARE CHANGED COLOSTOMY BAG DUE TO LEAKING. REDNESS NOTED AROUND PERIMETER OF BAG. SITE CLEANED AND DRIED, BARRIER CREAM APPLIED. PT GIVEN BED BATH, MANJARREZ CARE, ORAL CARE/SUCTION, COMPLETE LINEN AND GOWN CHANGE. PT REPOSITIONED FOR COMFORT. GTUBE IS FLUSHING WELL, NO RESIDUAL NOTED AT THIS TIME. IVF INFUSING ORDERED. TUBE FEEDING RUNNING AT 45 ML/HOUR. SAFETY, ASPIRATION, SEIZURE, AND CONTACT PRECAUTIONS MAINTAINED. WILL MONITOR.
[2018-03-05] MEDS: METOCLOPRAMIDE HCL 10 MG TABLET GT SCH ×3 (05:36→17:00)
[2018-03-05] MEDS: FERROUS SULFATE 300 MG/5 ML UDC GT SCH ×3 (06:15→17:00)
[2018-03-05] MEDS: INSULIN REGULAR, HUMAN 100 UNITS/ML, 10 ML VIAL (novoLIN R) SUBCUT PRN ×2 (06:18→11:55)
--- NOTE | 2018-03-05 06:23 | NUR ---
CLOSING NOTE PT RESTING IN BED WITH EYES OPEN. ACCUCHECK RESULT OF 161, 2 UNITS OF REGULAR INSULIN ADMINISTERED PER SLIDING SCALE. GTUBE IS PATENT AND FLUSHES WELL. TUBE FEEDING RUNNING GLUCERNA 1.5 @ 45 ML/HR. IVF INFUSING AT 60 ML/HOUR IN RIGHT UPPER ARM PICC. PICC DRESSING IS DRY AND INTACT. WOUND VAC IS TO SUCTION, DRAINAGE BROWN. MANJARREZ CATHETER IS DRAINING WELL TO GRAVITY, STILL SLIGHT LEAK. PT BREATHING IS UNLABORED TO VENT SETTINGS: RR 14; TV 500; PEEP 5. SAFETY, ASPIRATION, SEIZURE, AND CONTACT PRECAUTIONS OBSERVED. ALL NEEDS MET DURING SHIFT. WILL ENDORSE CARE TO DAY SHIFT.
[2018-03-05 07:05] LABS: CALCIUM 9.2 mg/dL (8.4-11.0); CREATININE 0.63 mg/dL (0.55-1.30); POTASSIUM 4.3 mmol/L (3.5-5.1)
[2018-03-05 07:11] LABS: ALBUMIN 1.8 g/dL (3.4-4.8); TOTAL BILIRUBIN 0.3 mg/dL (0.0-1.0)
--- NOTE | 2018-03-05 07:44 | NUR ---
Initial notes: Patient eye opening, non verbal and on mech vent. Stable. Mech sofya setting F102 30% TV 500 Peep 5. PICC line on MARIBEL patent. Gtube in placed. Hernandez Cath draining well by gravity. Wound vac in placed ath the sacral. SCD on BLE. Safety measures in placed. Call light within reach. Report received at bedside.
[2018-03-05 07:54] VITALS: BP_SYST 113
[2018-03-05 07:58] LABS: HEMATOCRIT 23.9 % (36-48); HEMOGLOBIN 7.8 g/dL (12.0-16.0); MEAN CORPUSCULAR HEMOGLOBIN 25 pg (27-31); MEAN CORPUSCULAR HGB CONC 32 % (32-36); MEAN CORPUSCULAR VOLUME 78 fL (79.0-98.0); WHITE BLOOD COUNT (AUTO) 9.6 K/uL (4.8-10.8)
[2018-03-05 07:59] LABS: BASOPHILS % (AUTO) 0.2 % (0.0-2.0); EOSINOPHILS # (AUTO) 0.4 K/uL (0.0-0.4); EOSINOPHILS % (AUTO) 4.3 % (0.0-4.0); LYMPHOCYTES # (AUTO) 1.1 K/uL (1.0-5.5); MONOCYTES # (AUTO) 0.5 K/uL (0.0-1.0); MONOCYTES % (AUTO) 4.9 % (1.7-9.3); NEUTROPHILS # (AUTO) 7.6 K/uL (1.8-7.7); NEUTROPHILS % (AUTO) 79.6 % (40.0-70.0); PLATELET COUNT (AUTO) 271 K/uL (130-430); RED CELL DISTRIBUTION WIDTH 20.3 % (9.0-15.0)
[2018-03-05] MEDS: PANTOPRAZOLE GRANULES PACKET 40 MG GT SCH ×2 (08:44→21:22)
[2018-03-05] MEDS: NAPH,MB-DB/K PH,MBDB 250 MG TAB GT SCH ×2 (08:45→21:22)
[2018-03-05] MEDS: SODIUM CHLORIDE 500 MG TABLET GT SCH ×3 (08:45→21:22)
[2018-03-05] MEDS: CHOLECALCIFEROL (VITAMIN D3) 2,000 UNIT TABLET GT SCH (08:45)
[2018-03-05] MEDS: LACTULOSE 20 GM/30 ML UDC GT SCH ×2 (08:45→21:21)
[2018-03-05] MEDS: POTASSIUM CHLORIDE 20 MEQ/PKT PACKET GT SCH ×2 (08:45→21:22)
[2018-03-05] MEDS: CALCIUM CARBONATE/VITAMIN D3 1 TAB TABLET GT SCH ×2 (08:45→21:22)
[2018-03-05] MEDS: ASCORBIC ACID 500 MG TABLET GT SCH ×2 (08:45→21:21)
[2018-03-05] MEDS: BALSAM PERU/CASTOR OIL 60 GM OINT...G. TP SCH (08:46)
[2018-03-05] MEDS: MULTIVIT-MINERALS/FERROUS GLUC 15 ML UDC GT SCH (08:46)
[2018-03-05] MEDS: LACTOBACILLUS RHAMNOSUS GG 1 CAP CAPSULE GT SCH ×2 (08:46→21:22)
[2018-03-05] MEDS: LevETIRAcetam 500 MG/5 ML UDC ORAL LIQUID GT SCH ×2 (08:51→21:23)
--- NOTE | 2018-03-05 09:51 | NUR ---
rounds: oral care provided. oral and trach suctioning. Repositioned for comfort. no distress noted.
[2018-03-05] MEDS: SOD FERRIC GLUC COMPLEX/SUC 125 MG in NS 100 ML IV SCH (11:33)
[2018-03-05 11:36] VITALS: BP_SYST 154
[2018-03-05] MEDS: 0.45% NACL 1,000 ML IV SCH (11:38)
--- NOTE | 2018-03-05 13:49 | NUR ---
rounds: Patient resting. no distress noted. trach suction provided.
--- NOTE | 2018-03-05 14:59 | NUR ---
Rounds: Patient resting on bed. eyes open. no facial grimace. no distress noted.
[2018-03-05 16:41] VITALS: BP_SYST 144
--- NOTE | 2018-03-05 17:06 | NUR ---
Rounds: Patient resting on bed. no distress noted.
[2018-03-05 17:09] VITALS: BP_SYST 144
--- NOTE | 2018-03-05 18:29 | NUR ---
Closing notes: Patient eyes open. Non verbal. Stable. On [facility] vent with same setting. Needs attended. Picc line in placed. Gtube infusing well. Colostomy in placed. Hernandez cath draining well by gravity. SCD on BLE. Safety and seizure precaution in placed. Report will be given to night custodian. Addendum: 03/05/18 at 1834 by Simran Lim RN Sacral with wound dressing and attached to wound vac.
[2018-03-05 19:10] VITALS: BP_SYST 145
--- NOTE | 2018-03-05 19:10 | NUR ---
OPENING NOTE SCD'S ON BILATERAL LOWER EXTREMITIES. SEIZURE PRECAUTIONS IN PLACE.
--- NOTE | 2018-03-05 19:10 | NUR ---
OPENING NOTE RECEIVED ENDORSEMENT REPORT FROM DAY SHIFT NURSE LYLY AT BEDSIDE. PT'S CHEST RISE EVEN AND UNLABORED. NO SOB NOTED. NO DISTRESS NOTED. PT EASILY AWAKEN WITH STIMULI. PT IS NONVERBAL. PT'S TRACH AT ORDERED RATE. PICC LINE ON RIGHT UPPER ARM . PICC LINE CLEAN DRY AND INTACT. PICC LINE DRESSING TO BE CHANGED 03/11. IVF INFUSING WELL. G-TUBE FEEDING INFUSING AT ORDERED RATE. FC CLEAN DRY AND INTACT. EMPTYING TO GRAVITY. WOUND VAC IN PLACE. OSTOMY IS CLEAN, DRY AND INTACT. CONTACT ISOLATION PRECAUTIONS IN PLACE PER PROTOCOL. PT ORIENTED TO HOSPITAL ROOM. PT UNABLE TO VERBALIZE UNDERSTANDING. EDUCATED PT ON SAFETY MEASURES. PT UNABLE TO VERBALIZE UNDERSTANDING. NO NEEDS AT THIS TIME. SAFETY MEASURES IN PLACE. CALL LIGHT/ ROOM PHONE WITHIN REACH, BED ALARM ON, SIDE RAILS UP X2, BED WHEELS LOCKED, BED IN LOWEST POSITION, HEAD OF BED ELEVATED, BEDSIDE TABLE WITHIN REACH. WILL CONTINUE TO MONITOR PT AND CONTINUE POC.
--- NOTE | 2018-03-05 21:35 | NUR ---
RN ROUNDS PT RESTING IN BED. PT'S CHEST RISE EVEN AND UNLABORED. NO SOB NOTED. NO DISTRESS NOTED. NO S/S OF PAIN NOTED. SCHEDULED MEDICATIONS ADMINISTERED ORDERED. PT TOLERATED WELL. IVF INFUSING WELL. G-TUBE FEEDING INFUSING AT ORDERED RATE. FC CLEAN DRY AND INTACT. EMPTYING TO GRAVITY. WOUND VAC IN PLACE. OSTOMY IS CLEAN, DRY AND INTACT. CONTACT ISOLATION PRECAUTIONS IN PLACE PER PROTOCOL. SEIZURE PRECAUTIONS IN PLACE. NO NEEDS AT THIS TIME. SAFETY MEASURES IN PLACE. WILL CONTINUE TO MONITOR PT AND CONTINUE POC.
--- NOTE | 2018-03-05 21:36 | NUR ---
BS 132, NO COVERAGE
--- NOTE | 2018-03-05 23:36 | NUR ---
RN ROUNDS PT RESTING IN BED. PT'S CHEST RISE EVEN AND UNLABORED. NO SOB NOTED. NO DISTRESS NOTED. IVF INFUSING WELL. G-TUBE FEEDING INFUSING AT ORDERED RATE. FC CLEAN DRY AND INTACT. EMPTYING TO GRAVITY. SEIZURE PRECAUTIONS IN PLACE. SAFETY MEASURES IN PLACE. WILL CONTINUE TO MONITOR PT AND CONTINUE POC.
[2018-03-06 00:14] VITALS: BP_SYST 157
[2018-03-06] MEDS: METOCLOPRAMIDE HCL 10 MG TABLET GT SCH ×5 (00:15→23:31)
--- NOTE | 2018-03-06 00:15 | NUR ---
MED PASS PT RESTING IN BED. PT'S CHEST RISE EVEN AND UNLABORED. NO SOB NOTED. NO DISTRESS NOTED. IVF INFUSING WELL. G-TUBE FEEDING INFUSING AT ORDERED RATE. SCHEDULED REGLAN ADMINISTERED ORDERED. PT TOLERATED WELL. NO OTHER NEEDS AT THIS TIME. SAFETY MEASURES IN PLACE. WILL CONTINUE TO MONITOR PT AND CONTINUE POC.
[2018-03-06] MEDS: IPRATROPIUM BROM 0.5 MG/2.5 ML VIAL.NEB (ATROVENT) INH SCH ×4 (00:35→19:40)
[2018-03-06] MEDS: ALBUTEROL SULFATE 0.083% 2.5 MG/3 ML VIAL.NEB INH SCH ×4 (00:35→19:40)
[2018-03-06] MEDS: FERROUS SULFATE 300 MG/5 ML UDC GT SCH ×3 (06:37→18:14)
--- NOTE | 2018-03-06 07:48 | NUR ---
CLOSING NOTE ENDORSED PT REPORT TO DAY SHIFT NURSE NEL AT BEDSIDE. PT IS NONVERBAL. PT'S CHEST RISE EVEN AND UNLABORED. NO SOB NOTED. NO DISTRESS NOTED. ALL NEEDS MET THROUGHOUT SHIFT. ALL MEDICATIONS ADMINISTERED ORDERED. PT CARE ENDORSED.
[2018-03-06 08:00] VITALS: BP_SYST 120
--- NOTE | 2018-03-06 08:00 | NUR ---
initial notes rec patient asleep but arousable to stimuli. pt with a trache to vent.resp easy and unlabored. hob elevated. bed to the lowest position and side rails up and locked. with gt feeding and no residual noted. will continue to monitor patient.
[2018-03-06] MEDS: CALCIUM CARBONATE/VITAMIN D3 1 TAB TABLET GT SCH ×2 (10:05→20:36)
[2018-03-06] MEDS: ASCORBIC ACID 500 MG TABLET GT SCH ×2 (10:06→20:36)
[2018-03-06] MEDS: LACTOBACILLUS RHAMNOSUS GG 1 CAP CAPSULE GT SCH ×2 (10:06→20:36)
[2018-03-06] MEDS: CHOLECALCIFEROL (VITAMIN D3) 2,000 UNIT TABLET GT SCH (10:06)
[2018-03-06] MEDS: POTASSIUM CHLORIDE 20 MEQ/PKT PACKET GT SCH ×2 (10:06→20:36)
[2018-03-06] MEDS: LACTULOSE 20 GM/30 ML UDC GT SCH ×2 (10:08→20:37)
[2018-03-06] MEDS: LevETIRAcetam 500 MG/5 ML UDC ORAL LIQUID GT SCH ×2 (10:09→20:49)
[2018-03-06] MEDS: NAPH,MB-DB/K PH,MBDB 250 MG TAB GT SCH ×2 (10:09→20:37)
[2018-03-06] MEDS: SODIUM CHLORIDE 500 MG TABLET GT SCH ×3 (10:09→20:36)
[2018-03-06] MEDS: MULTIVIT-MINERALS/FERROUS GLUC 15 ML UDC GT SCH (10:09)
[2018-03-06] MEDS: PANTOPRAZOLE GRANULES PACKET 40 MG GT SCH ×2 (10:10→20:37)
--- NOTE | 2018-03-06 10:30 | NUR ---
rounds due meds given and osman well. suctioned done obtaining mod amount of thin secretions. oral care done as well.
--- NOTE | 2018-03-06 12:00 | NUR ---
rounds gt feeding s osman well. no hypo hyperglycemic reaction noted. turned repositioned for comfort.
[2018-03-06] MEDS: INSULIN REGULAR, HUMAN 100 UNITS/ML, 10 ML VIAL (novoLIN R) SUBCUT PRN ×2 (12:13→18:26)
[2018-03-06 12:38] VITALS: BP_SYST 141
--- NOTE | 2018-03-06 14:00 | NUR ---
rounds suctioned with small amount of thin whitish phlegm. oral care rendered.
--- NOTE | 2018-03-06 16:00 | NUR ---
rounds turned repositioned , no acute ditress noted. pt was suctioned. bed to the lowest position and side rails up and locked.
[2018-03-06 16:32] VITALS: BP_SYST 132
[2018-03-06] MEDS: EPOETIN ALFA 10,000 UNITS/ML VIAL SUBCUT SCH (18:14)
--- NOTE | 2018-03-06 18:30 | NUR ---
closing notes turned repositioned for comfort. no hypo hyperglycemic reaction noted. resp easy and unlabored. bed to the lowest position and side rails up and locked.
--- NOTE | 2018-03-06 19:45 | NUR ---
Initial Notes Received handoff report from offgoing nurse at the bedside. Patient is resting comfortably in bed with eyes closed. No SOB, no acute distress, no signs of pain or facial grimacing noted. Tolerating vent to trach settings, and tolerating gtube feeding as ordered. Bed is locked, in the lowest position, 2x side rails up, bed alarm is on. Call light within reach. Will continue with plan of care.
[2018-03-06 20:00] VITALS: BP_SYST 128
[2018-03-06] MEDS: 0.45% NACL 1,000 ML IV SCH (20:49)
--- NOTE | 2018-03-06 21:49 | NUR ---
Patient resting comfortably in bed with eye closed. Breathing even and unlabored. Tolerating trach to vent settings. Bed locked, lowest position, side rails up, bed alarm is on. Call light within reach.
--- NOTE | 2018-03-06 23:30 | NUR ---
Wound vac dressing change done according to Wound care nurse orders. Patient tolerated procedure well. Addendum: 03/07/18 at 0129 by Sindi Calvo RN Continuation of notes No facial grimacing noted from wound care.
[2018-03-07 00:33] VITALS: BP_SYST 145
[2018-03-07] MEDS: ALBUTEROL SULFATE 0.083% 2.5 MG/3 ML VIAL.NEB INH SCH ×4 (01:05→19:16)
[2018-03-07] MEDS: IPRATROPIUM BROM 0.5 MG/2.5 ML VIAL.NEB (ATROVENT) INH SCH ×4 (01:05→19:17)
--- NOTE | 2018-03-07 02:37 | NUR ---
Patient resting comfortably in bed with eyes closed. Breathing even and unlabored. Tolerating vent to trach settings. No SOB, no acute distress, no signs of pain or facial grimacing noted. Tolerating GTUBE feeding per MD order. Bed is locked, in the lowest position, 2x side rails up, bed alarm is on. Call light within reach.
--- NOTE | 2018-03-07 04:20 | NUR ---
Patient resting comfortably in bed with eyes closed. No SOB, no acute distress, no signs of pain or facial grimacing noted. Bed is locked, in the lowest position, 2x side rails up, bed alarm is on. Call light within reach. Tolerating trach to vent settings and gtube feeding as ordered.
[2018-03-07] MEDS: METOCLOPRAMIDE HCL 10 MG TABLET GT SCH ×4 (05:05→23:42)
[2018-03-07] MEDS: 0.45% NACL 1,000 ML IV SCH ×2 (05:08→07:41)
[2018-03-07] MEDS: FERROUS SULFATE 300 MG/5 ML UDC GT SCH ×3 (06:03→17:25)
--- NOTE | 2018-03-07 06:23 | NUR ---
Patient is resting comfortably in bed with eyes opened. Breathing even and unlabored with visible chest rise and fall noted. Tolerating trach to vent settings. No SOB, no acute distress, no signs of pain or facial grimacing noted. Gtube feeding infusing per MD order. Patient is tolerating GTUBE feeding. IVF infusing per MD order, see eMAR for details. Colostomy bag emptied as needed. Wound vac to wound site running with no leakage noted. Bed is locked, in the lowest position, 2x side rails up, bed alarm is on. Call light is within reach.
[2018-03-07 07:07] LABS: HEMATOCRIT 25.4 % (36-48); HEMOGLOBIN 8.3 g/dL (12.0-16.0); MEAN CORPUSCULAR HEMOGLOBIN 25 pg (27-31); MEAN CORPUSCULAR HGB CONC 33 % (32-36); MEAN CORPUSCULAR VOLUME 77 fL (79.0-98.0); PLATELET COUNT (AUTO) 294 K/uL (130-430); RED CELL DISTRIBUTION WIDTH 20.7 % (9.0-15.0); WHITE BLOOD COUNT (AUTO) 12.3 K/uL (4.8-10.8)
[2018-03-07 07:23] LABS: CREATININE 0.65 mg/dL (0.55-1.30); POTASSIUM 4.5 mmol/L (3.5-5.1)
--- NOTE | 2018-03-07 07:31 | NUR ---
Endorsement of care given to oncoming dayshift nurse at the bedside. Seizure precautions and Fall precautions maintained. All needs have been met during this shift.
--- NOTE | 2018-03-07 07:37 | NUR ---
OPENING NOTES At initial assessment, patient is sleeping in bed with both eyes closed. Breathing even and unlabored, patient on mechanical vent with settings of AC 14, TV 500, FiO2 30%, Peep 5. PICC line on MARIBEL noted patent and intact. NS at 60ml/hr and infusing well. Gtube in place, receiving Glucerna 1.5 at 45ml/hr. Colostomy bag in place. F/C in place, noted with yellow urine. Aspiration, seizure, fall, contact, and safety precautions in place, bed low and locked, alarm on, side rails up x3, seizure pads present, call light within reach, will continue to monitor.
[2018-03-07 08:00] VITALS: BP_SYST 116
[2018-03-07] MEDS: BALSAM PERU/CASTOR OIL 60 GM OINT...G. TP SCH (09:00)
[2018-03-07] MEDS: POTASSIUM CHLORIDE 20 MEQ/PKT PACKET GT SCH ×2 (09:34→20:19)
[2018-03-07] MEDS: ASCORBIC ACID 500 MG TABLET GT SCH ×2 (09:35→20:19)
[2018-03-07] MEDS: LACTULOSE 20 GM/30 ML UDC GT SCH ×2 (09:35→20:20)
[2018-03-07] MEDS: NAPH,MB-DB/K PH,MBDB 250 MG TAB GT SCH ×2 (09:35→20:19)
[2018-03-07] MEDS: LACTOBACILLUS RHAMNOSUS GG 1 CAP CAPSULE GT SCH ×2 (09:35→20:19)
[2018-03-07] MEDS: CHOLECALCIFEROL (VITAMIN D3) 2,000 UNIT TABLET GT SCH (09:35)
[2018-03-07] MEDS: PANTOPRAZOLE GRANULES PACKET 40 MG GT SCH ×2 (09:35→20:19)
[2018-03-07] MEDS: SODIUM CHLORIDE 500 MG TABLET GT SCH ×3 (09:35→20:19)
[2018-03-07] MEDS: CALCIUM CARBONATE/VITAMIN D3 1 TAB TABLET GT SCH ×2 (09:35→20:19)
[2018-03-07] MEDS: MULTIVIT-MINERALS/FERROUS GLUC 15 ML UDC GT SCH (09:36)
[2018-03-07] MEDS: LevETIRAcetam 500 MG/5 ML UDC ORAL LIQUID GT SCH ×2 (09:36→20:20)
--- NOTE | 2018-03-07 11:30 | NUR ---
ROUNDS Patient is awake, no s/s of acute distress/discomfort. Trach to vent and no respiratory distress noted. Gtube feeding infusing as ordered and tolerating well. No seizure activity noted. Wound vac running. Oral care provided and patient tolerated well. Contact, safety, fall, aspiration, and seizure precautions observed, call light within reach, will continue to monitor.
[2018-03-07] MEDS: INSULIN REGULAR, HUMAN 100 UNITS/ML, 10 ML VIAL (novoLIN R) SUBCUT PRN ×2 (11:33→21:30)
[2018-03-07 11:42] LABS: BAND % (MANUAL) 2 % (0-6); BASOPHILS % (MANUAL) 0 % (0-2); EOSINOPHILS % (MANUAL) 1 % (0-7); LYMPHOCYTES % (MANUAL) 13 % (20-46); MONOCYTES % (MANUAL) 3 % (0-11)
[2018-03-07 12:30] VITALS: BP_SYST 124
--- NOTE | 2018-03-07 14:20 | NUR ---
ROUNDS Patient is sleeping comfortably, no s/s of acute distress/discomfort. Trach to vent and no respiratory distress noted. Tolerating G Tube feeding well. No seizure activity noted. Wound vac running. Contact, safety, fall, aspiration, and seizure precautions observed, call light within reach, will continue to monitor.
--- NOTE | 2018-03-07 15:33 | NUR ---
SPOKE WITH DR. FITZ Valentine in the facility, and informed MD regarding discontinuation of IV fluids. Per MD, "let's see how she does without IV fluids for now." Patient receives H2O flush 200 ml every 4 hours. Will continue to monitor.
--- NOTE | 2018-03-07 15:41 | NUR ---
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 Coli, Hx CVA 03/02/18 ID Note: septic shock (resolved) Subjective Information Pt was sleeping w/ TF infusing as per MD orders. Per RN, pt received Marques today, but no Prosource. RD provided Prosource x3 -- RN to provide as per MD orders. Per RN, pt has been tolerating TF well, no residuals, no s/s of intolerance. Per EMR, TF Intakes: 540 ml 03/02/18. Residuals: 0 ml 03/07/17. Output (stool): 40 ml 03/07/18. Abd is soft and non-distended w/ active bowel sounds. I/O: 1280/1090 (+190 ml) per 12 hours. Pt continues to benefit from an increase in nutrition support to aid for possible hypermetabolic state. Current Diet Order/Nutrition Support Glucerna 1.5 at 45 ml/hr, Marques BID, Prosource TID, Free Water Flush: 100 ml Q4h via GT x23 days Per MD orders -- Free Water Flush: 100 ml Q4H Patient/Significant Other Unable To Verbalize Education Provided Not Indicated Pertinent Medications neutraphos, reglan, zofran, VIT D-3, protonix, culturelle, centrum, zinc sulfate, os-shorty, VIT C, ferrous sulfate, SSI, tums, lactulose, KCl packet Pertinent Labs POC BG 170 H, BG 131 H, BUN 22 H, H/H 8.3 L/25.4 L, WBC 12.3 H, ALB 1.8 L, Na 133 L Height (Feet 5 feet Height (Inches) 3.00 inches Weight (Pounds) 152 pounds (01/17/18) BED SCALE WT: 186.5 lb (01/23/18); 168 lb (02/16/18); 177 lb (02/21/18); 176 lb (02/25/18)-- may be inaccurate d/t blankets/pillows Weight (Calculated Kilograms) 68.739652 kilograms Patient Weight 68.946 kg Body Mass Index 26.92 kg/m2 %IBW 133 [place]/Adjusted Body Weight IBW: 115 lb, 52 kg. Adj IBW (obesity): 124 lb, 56 kg Recent Weight Change No Weight Status Overweight Last BM 02/21/18 Food Allergies No Usual Diet At Home Unable to assess per EMR Skin Integrity Comment: Jeff scale: 10; per Parts Specialist note 02/24/18: 1. Sacral-Coccygeal area: Pressure ulcer, present on admission. Wound bed has 50% pink tissue, 40% light yellow tissue, 10% dark colored tissue (not eschar). No odor, scant sanguineous drainage. Dark discolored tissue present on surrounding tissue. Wound measures 6.5 cm 6.0 cm x 4.0 cm. Undermining present from 12-5 o-clock (12 o'clock measured 1.0 cm; 3 o'clock measured 1.8 cm). Periwound is white from 11-1 o'clock. Generalized 1+ pitting edema and L arm w/ non-pitting edema Estimated Energy Expenditure (kcals/day) 0179-4252 kcal/day (30-35 kcal/kg Adj IBW for wound healing) Estimated Protein Required (g/day) 67-112 gm/day (1.2-2 gm/kg Adj IBW for wound healing) Estimated Fluid Required (l/day) Per MD (ARF) Problem/Etiology/Signs/Symptoms Inadequate enteral nutrition related to metabolic demands as evidenced by current TF regimen meets 79% of estimated caloric needs and 94% of estimated protein needs. *improving Expected Outcomes/Goals - Monitor tolerance to EN support w/ goal of pt meeting at least 85% of estimated nutritional needs, labs trending WNL, normal GI function, and skin integrity/wt maintenance Dietitian Recommendations * Recommend Glucerna 1.5 at 45 ml/hr, Marques BID, Prosource TID, Free Water Flush: 200 ml Q4h via GT per MD Provides: 1980 kcal/day, 139 gm protein/day, and 2020 ml free water/day Meets: 101% of upper end of estimated caloric needs and 124% of upper end of estimated protein needs Follow Up Moderate Risk: F/U in 3-5 days
--- NOTE | 2018-03-07 15:53 | NUR ---
Dietitian Recommendations * Recommend Glucerna 1.5 at 45 ml/hr, Marques BID, Prosource TID, Free Water Flush: 200 ml Q4h via GT per MD Provides: 1980 kcal/day, 139 gm protein/day, and 2020 ml free water/day Meets: 101% of upper end of estimated caloric needs and 124% of upper end of estimated protein needs LP, RD Please refer to Nutrition F/U for details.
[2018-03-07 16:09] VITALS: BP_SYST 116
--- NOTE | 2018-03-07 16:40 | NUR ---
ROUNDS Patient is resting with eyes closed, no s/s of acute distress/discomfort. Trach to vent and no respiratory distress noted. Tolerating GTube feeding well. No seizure activity noted. Wound vac running. Contact, safety, fall, aspiration, and seizure precautions observed, call light within reach, will continue to monitor.
--- NOTE | 2018-03-07 18:36 | NUR ---
CLOSING NOTE Patient is sleeping comfortably in bed, no s/s of acute distress. Trach to vent and tolerating well, no respiratory distress noted. Gtube in place, patent and intact, GTube feeding running as ordered and tolerating well. PICC line on MARIBEL patent and intact. Colostomy patent and intact, emptied 100 ml of loose brown output. F/C in place with visible urine output. Safety, aspiration, contact, seizure, and fall precautions in place. All needs met and anticipated throughout the shift. Bed low and locked, alarm on, seizure pads present, side rails up x3, call light within reach. Will endorse plan of care.
--- NOTE | 2018-03-07 19:20 | NUR ---
Opening notes Received report. Patient is resting in bed, eyes open. No signs of distress noted. Patient tolerating well on current vent settings. PICC line intact, saline locked. Hernandez catheter in place. Tube feeding in place. Bilateral SCDs in place. Colostomy bag in place. Safety and seizure precautions in place
[2018-03-07 20:00] VITALS: BP_SYST 147
--- NOTE | 2018-03-07 22:30 | NUR ---
RN ROUNDS PATIENT RESTING IN BED, EYES OPEN. NO SIGNS OF DISTRESS NOTED. SAFETY PRECAUTIONS IN PLACE.
[2018-03-08] VITALS (7 sets, daily range): BP systolic 120–140
--- NOTE | 2018-03-08 00:30 | NUR ---
RN ROUNDS PATIENT RESTING IN BED. NO SIGNS OF DISTRESS NOTED. PATIENT TOLERATING VENT SETTINGS.
[2018-03-08] MEDS: ALBUTEROL SULFATE 0.083% 2.5 MG/3 ML VIAL.NEB INH SCH ×4 (00:57→20:11)
[2018-03-08] MEDS: IPRATROPIUM BROM 0.5 MG/2.5 ML VIAL.NEB (ATROVENT) INH SCH ×4 (00:57→20:11)
--- NOTE | 2018-03-08 02:30 | NUR ---
Wound vac and Colostomy bag change Changed wound vac dressing. No leakage noted. Colostomy bag changed. Loose stool noted in bag. Patient tolerated well.
--- NOTE | 2018-03-08 05:42 | NUR ---
RN ROUNDS PATIENT RESTING IN BED. NO SIGNS OF DISTRESS NOTED.
[2018-03-08] MEDS: FERROUS SULFATE 300 MG/5 ML UDC GT SCH ×3 (05:53→16:41)
[2018-03-08] MEDS: METOCLOPRAMIDE HCL 10 MG TABLET GT SCH ×3 (05:53→18:11)
--- NOTE | 2018-03-08 06:57 | NUR ---
Closing notes Patient resting in bed. No signs of distress noted. Patient tolerating vent settings. O2 sat 98%. Trach is intact. PICC line is patent and intact. G tube is intact infusing feeding. Hernandez catheter is in place draining urine. Wound vac is in place. All needs met. Practice guidelines met throughout the shift. Call light is with the patient. Safety and seizure precautions in place. Will endorse care to day shift RN.
--- NOTE | 2018-03-08 07:50 | NUR ---
VENT SETTINGS RESPIRATORY THERAPIST INFORMED RN OF THE VENT SETTING CHANGE OF FIO2 FROM 30% TO 25% AT 0717, PATIENT TOLERATING WELL WITH AN OXYGEN SATURATION OF 100% AND NO SIGNS OF SHORTNESS OF BREATH OR DISTRESS.
--- NOTE | 2018-03-08 08:00 | NUR ---
OPENING NOTE PATIENT RECEIVED RESTING IN BED WITH EYES OPEN, BREATHING IS EVEN ON MECHANICAL VENTILATOR, PATIENT TOLERATING VENT SETTINGS WELL, NO ACUTE DISTRESS OR PAIN IS NOTED, PATIENT TOLERATING TUBE FEEDING WELL AT 45ML/HR, NO SIGNS OF NAUSEA OR VOMITING, MANJARREZ CATHETER DRAINING WELL BY GRAVITY WITH SLIGHT LEAKAGE NOTED, COLOSTOMY INTACT, WILL CONTINUE TO MONITOR, SAFETY PRECAUTIONS IN PLACE, BED ALARM ON, SEIZURE PRECAUTIONS IN PLACE, CALL LIGHT WITHIN REACH.
[2018-03-08] MEDS: PANTOPRAZOLE GRANULES PACKET 40 MG GT SCH ×2 (09:02→21:00)
[2018-03-08] MEDS: SODIUM CHLORIDE 500 MG TABLET GT SCH ×3 (09:02→21:00)
[2018-03-08] MEDS: POTASSIUM CHLORIDE 20 MEQ/PKT PACKET GT SCH ×2 (09:02→21:00)
[2018-03-08] MEDS: CALCIUM CARBONATE/VITAMIN D3 1 TAB TABLET GT SCH ×2 (09:02→21:00)
[2018-03-08] MEDS: LACTOBACILLUS RHAMNOSUS GG 1 CAP CAPSULE GT SCH ×2 (09:10→21:00)
[2018-03-08] MEDS: LACTULOSE 20 GM/30 ML UDC GT SCH ×2 (09:10→21:00)
[2018-03-08] MEDS: ASCORBIC ACID 500 MG TABLET GT SCH ×2 (09:11→21:00)
[2018-03-08] MEDS: NAPH,MB-DB/K PH,MBDB 250 MG TAB GT SCH ×2 (09:11→21:00)
[2018-03-08] MEDS: MULTIVIT-MINERALS/FERROUS GLUC 15 ML UDC GT SCH (09:12)
[2018-03-08] MEDS: BALSAM PERU/CASTOR OIL 60 GM OINT...G. TP SCH (09:12)
[2018-03-08] MEDS: LevETIRAcetam 500 MG/5 ML UDC ORAL LIQUID GT SCH ×2 (09:12→21:01)
[2018-03-08] MEDS: CHOLECALCIFEROL (VITAMIN D3) 2,000 UNIT TABLET GT SCH (09:14)
--- NOTE | 2018-03-08 10:15 | NUR ---
NOTES PATIENT IS RESTING IN BED WITH EYES OPEN, NO ACUTE DISTRESS IS NOTED AT THIS TIME, PATIENT TOLERATING VENT SETTINGS WELL, NO SOB, PAIN OR VOMITING NOTED, WILL CONTINUE TO MONITOR, SAFETY PRECAUTIONS IN PLACE, SEIZURE PRECAUTIONS IN PLACE, CALL LIGHT WITHIN REACH.
[2018-03-08] MEDS: INSULIN REGULAR, HUMAN 100 UNITS/ML, 10 ML VIAL (novoLIN R) SUBCUT PRN ×2 (11:41→21:32)
--- NOTE | 2018-03-08 12:01 | NUR ---
NOTES / BLOOD GLUCOSE BLOOD GLUCOSE IS 174 AT THIS TIME, 2 UNITS OF REGULAR INSULIN GIVEN PER SLIDING SCALE FOR COVERAGE, FREE H2O FLUSH GIVEN AT THIS TIME, NO SIGNS OF CLOGGING, PATIENT TOLERATING TUBE FEEDING WELL, NO SIGNS OF NAUSEA OR VOMITING, PATIENT TOLERATING VENT SETTINGS WELL WITH NO SOB OR DISTRESS, PATIENT IS RESTING IN BED WITH EYES OPEN, WILL CONTINUE TO MONITOR, SAFETY PRECAUTIONS IN PLACE, SEIZURE PRECAUTIONS IN PLACE, CALL LIGHT WITHIN REACH.
--- NOTE | 2018-03-08 12:24 | NUR ---
Discharge Planning: DAIRY STORE MANAGER received approval from administration to have [facility] bring their ventilator in for family/staff training, and 24 hour trial for pt on [facility] ventilator. [facility] has left a message for Joseph ([phone]) with [facility] to confirm training date and the date that ventilator will be brought to the hospital for clearance. Addendum: 03/08/18 at 1620 by Sudha Keith LCSW [facility] will be coming tomorrow, 03/09/18, to train the RTs on the [facility] ventilator; the training will be at 2:00pm. [facility] has alerted Wyatt in Respiratory Department.
--- NOTE | 2018-03-08 14:22 | NUR ---
NOTES PATIENT IS RESTING IN BED, BREATHING IS EVEN AND UNLABORED, NO ACUTE DISTRESS OR PAIN IS NOTED, NO SHORTNESS OF BREATH NOTED, PATIENT TOLERATING VENT SETTINGS WELL, PATIENT TOLERATING TUBE FEEDING WELL WITH NO SIGNS OF NAUSEA OR VOMITING, WILL CONTINUE TO MONITOR, SAFETY PRECAUTIONS IN PLACE, CALL LIGHT WITHIN REACH.
--- NOTE | 2018-03-08 15:34 | NUR ---
NOTES CHANGED PATIENT AND REPOSITIONED FOR COMFORT, SUCTIONED PATIENT WITH SCANT WHITE SECRETIONS, PATIENT TOLERATED WELL, NO ACUTE DISTRESS NOTED, PATIENT TOLERATING VENT SETTINGS WELL, PATIENT TOLERATING TUBE FEEDING WELL, WILL CONTINUE TO MONITOR, SAFETY PRECAUTIONS IN PLACE, SEIZURE PRECAUTIONS IN PLACE, CALL LIGHT WITHIN REACH.
[2018-03-08] MEDS: EPOETIN ALFA 10,000 UNITS/ML VIAL SUBCUT SCH (16:42)
--- NOTE | 2018-03-08 17:25 | NUR ---
NOTES BLOOD GLUCOSE WAS 128, NO INSULIN COVERAGE NEEDED PER SLIDING SCALE, PATIENT TOLERATING VENT SETTINGS WELL WITH NO SOB OR DISTRESS, PATIENT TOLERATING TUBE FEEDING WELL WITH NO NAUSEA OR VOMITING NOTED, WILL CONTINUE TO MONITOR, SAFETY PRECAUTIONS IN PLACE, SEIZURE PRECAUTIONS IN PLACE, CALL LIGHT WITHIN REACH.
--- NOTE | 2018-03-08 18:37 | NUR ---
CLOSING NOTE PATIENT IS RESTING IN BED WITH EYES OPEN, PATIENT TOLERATING TUBE FEEDING WELL WITH NO SIGNS OF NAUSEA OR VOMITING, PATIENT TOLERATING VENT SETTINGS WELL WITH NO SOB OR DISTRESS NOTED AND AN OXYGEN SATURATION ON 98%, MANJARREZ CATHETER DRAINING WELL BY GRAVITY, COLOSTOMY BAG INTACT, WOUND VAC INTACT, ALL NEEDS WERE MET THROUGHOUT SHIFT, WILL ENDORSE REPORT TO ONCOMING NURSE, SAFETY PRECAUTIONS IN PLACE, SEIZURE PRECAUTIONS IN PLACE, CALL LIGHT WITHIN REACH.
--- NOTE | 2018-03-08 19:40 | NUR ---
ROUNDS PATIENT RESTING COMFORTABLY IN BED, ON MECHANICAL VENTILATOR, VITALS STABLE. NO SIGNS OF ANY PAIN AND DISCOMFORT NOTED AT THIS TIME. ASSESSMENT DONE AND DOCUMENTED. SEE FLOWSHEET. NEEDS ATTENDED TO. TURNED AND REPOSITIONED AND MADE COMFORTABLE. SAFETY AND FALL PRECAUTION MEASURES IN PLACED. WILL CONTINUE TO MONITOR.
--- NOTE | 2018-03-08 21:12 | NUR ---
MEDICATION/ACCU CHECK DUE MEDICATIONS GIVEN ORDERED PER G TUBE, TOLERATED WELL. ACCU CHECK DONE, BLOOD SUGAR 156 WITH 2 UNITS REGULAR INSULIN GIVEN PER SLIDING SCALE. WILL CONTINUE TO MONITOR.
--- NOTE | 2018-03-09 00:10 | NUR ---
PATIENT RESTING: Patient resting quietly. No acute distress noted. Vital signs within normal range.
[2018-03-09] MEDS: METOCLOPRAMIDE HCL 10 MG TABLET GT SCH ×5 (00:52→23:37)
[2018-03-09] MEDS: IPRATROPIUM BROM 0.5 MG/2.5 ML VIAL.NEB (ATROVENT) INH SCH ×4 (01:12→19:43)
[2018-03-09] MEDS: ALBUTEROL SULFATE 0.083% 2.5 MG/3 ML VIAL.NEB INH SCH ×4 (01:12→19:43)
--- NOTE | 2018-03-09 02:00 | NUR ---
Received Endorsement of Patient Patient resting in bed, awake, alert, nonverbal, unable to follow commands. Patient appears in no acute distress or pain at this time. Breathing is even and unlabored on mech vent. Hernandez draining to gravity. HOB elevated. Fall precautions in place.
--- NOTE | 2018-03-09 02:00 | NUR ---
NOTES GAVE REPORT TO SARAH BETH RN FOR CONTINUITY OF PATIENT CARE.
--- NOTE | 2018-03-09 04:00 | NUR ---
Nursing Notes Patient resting in bed, easily aroused, no change in mentation. Patient appears in no acute distress or pain at this time. Breathing is even and unlabored on mech vent. Oral care and trach suctioning provided. Patient repositioned for comfort. Fall precautions in place, will continue to monitor.
[2018-03-09] MEDS: FERROUS SULFATE 300 MG/5 ML UDC GT SCH ×3 (06:03→17:17)
[2018-03-09] MEDS: INSULIN REGULAR, HUMAN 100 UNITS/ML, 10 ML VIAL (novoLIN R) SUBCUT PRN ×2 (06:11→11:18)
--- NOTE | 2018-03-09 06:35 | NUR ---
Closing Notes Patient resting in bed with eyes closed, easily aroused, no change to mentation. Patient appears in no acute distress or pain at this time. Breathing is even and unlabored on mech vent. PICC site patent/clean/dry, no S/S infection/infiltration noted. Hernandez draining yellow urine to gravity. Colostomy draining loose brown BM, no leakage noted. Woundvac to sacrum in use, no leakage noted. Needs addressed throughout shift. Fall precautions in place. Will continue to monitor for changes and safety, and endorse all patient care/needs to oncoming nurse.
[2018-03-09 08:00] VITALS: BP_SYST 114
--- NOTE | 2018-03-09 08:00 | NUR ---
Opening Note Report received from [facility] shift nurse. Patient is able to open her eyes only. Isolation and seizure precautions are in place. Trach is to vent with the following settings: TV 500, FiO2 25%, PEEP 5, AC 14. RUE PICC line is in place. Sacral wound vac is in place draining, brownish/pinkish fluids. Hernandez cath is in place draining cloudy urine. G-tube is in place running Glucerna @75. Will continue to closely monitor.
[2018-03-09] MEDS: SODIUM CHLORIDE 500 MG TABLET GT SCH ×3 (09:40→21:21)
[2018-03-09] MEDS: LACTULOSE 20 GM/30 ML UDC GT SCH ×2 (09:41→21:20)
[2018-03-09] MEDS: ASCORBIC ACID 500 MG TABLET GT SCH ×2 (09:41→21:21)
[2018-03-09] MEDS: CHOLECALCIFEROL (VITAMIN D3) 2,000 UNIT TABLET GT SCH (09:41)
[2018-03-09] MEDS: PANTOPRAZOLE GRANULES PACKET 40 MG GT SCH ×2 (09:41→21:20)
[2018-03-09] MEDS: POTASSIUM CHLORIDE 20 MEQ/PKT PACKET GT SCH ×2 (09:41→21:20)
[2018-03-09] MEDS: LACTOBACILLUS RHAMNOSUS GG 1 CAP CAPSULE GT SCH ×2 (09:41→21:21)
[2018-03-09] MEDS: LevETIRAcetam 500 MG/5 ML UDC ORAL LIQUID GT SCH ×2 (09:47→21:21)
[2018-03-09] MEDS: MULTIVIT-MINERALS/FERROUS GLUC 15 ML UDC GT SCH (09:47)
[2018-03-09] MEDS: NAPH,MB-DB/K PH,MBDB 250 MG TAB GT SCH ×2 (09:47→21:20)
--- NOTE | 2018-03-09 10:20 | NUR ---
Rounds Patient was turned. No change in current condition.
[2018-03-09] MEDS: CALCIUM CARBONATE/VITAMIN D3 1 TAB TABLET GT SCH ×2 (11:16→21:22)
[2018-03-09] MEDS: BALSAM PERU/CASTOR OIL 60 GM OINT...G. TP SCH (11:17)
[2018-03-09 12:16] VITALS: BP_SYST 126
--- NOTE | 2018-03-09 12:27 | NUR ---
Rounds Patient was turned tolerated well.
--- NOTE | 2018-03-09 14:38 | NUR ---
Rounds Patient was turned, tolerated well, Family is at the bedside.
--- NOTE | 2018-03-09 15:33 | NUR ---
Discharge Planning: OUTER DIAMETER TECHNICIAN met with pt's dtr at bedside. Pt's dtr is aware that RT was trained on ventilator today. OUTER DIAMETER TECHNICIAN updated dtr that OUTER DIAMETER TECHNICIAN is awaiting date for ventilator trial at hospital. Once pt has 24 hour trial on [facility] ventilator and pt tolerates; pt can then be discharged home. OUTER DIAMETER TECHNICIAN will have CM check with doctor if pt will need wound vac at home upon discharge. Pt's dtr states that she will inventory their supplies at home for ostomy and alert OUTER DIAMETER TECHNICIAN if more supplies are needed. Pt's dtr did state that pt will need a prescription for test strips for her glucometer upon discharge. OUTER DIAMETER TECHNICIAN [facility] and [facility]'s [facility] to arrange for DC plans.
[2018-03-09 16:00] VITALS: BP_SYST 124
--- NOTE | 2018-03-09 16:38 | NUR ---
Rounds Patient was turned. No change in current condition.
--- NOTE | 2018-03-09 18:48 | NUR ---
Closing Note No change in current condition throughout the shift. Trach is to vent on the same settings. G-tube is in place running Glucerna @45. No residuals throughout the shift. RUE PICC line is in place. Sacral wound vac is in place. Colostomy bag is in place. Will endorse care to the oncoming nurse.
[2018-03-09 20:00] VITALS: BP_SYST 127
--- NOTE | 2018-03-09 20:00 | NUR ---
Initial note: Received report from jose miguel CARMONA. Patient is laying in bed. No acute distress noted. Tolerating current vent settings. MARIBEL PICC line noted, dressing is clean, dry, intact. Site flushes well with NS and has good blood return. Colostomy bag to patient's left abdomen noted. Hernandez catheter draining yellow urine with sediments to gravity. Call light is with patient. Contact isolation precautions in place for MDRO and PRODUCTION CONTROL TECHNOLOGIST of sputum; E. Coli, ESBL, and MDRO of urine; and MRSA of nares. Safety, fall, and seizure precautions in place. Will continue with plan of care.
--- NOTE | 2018-03-09 21:40 | NUR ---
Blood glucose: Patient's blood glucose at this time is 145. No insulin administered per MD-ordered sliding scale. Call light with patient. Will continue to monitor.
[2018-03-09 23:00] VITALS: BP_SYST 115
--- NOTE | 2018-03-09 23:51 | NUR ---
Rounds: Patient is laying in bed awake, no acute distress. Tolerating vent settings. Tubefeeding in place, patient tolerating well. Call light with patient. Will continue to monitor.
--- NOTE | 2018-03-10 00:10 | NUR ---
Colostomy emptied: Emptied colostomy bag. Brown loose stool noted. Call light with patient. Will continue to monitor.
[2018-03-10] MEDS: IPRATROPIUM BROM 0.5 MG/2.5 ML VIAL.NEB (ATROVENT) INH SCH ×4 (01:17→19:39)
[2018-03-10] MEDS: ALBUTEROL SULFATE 0.083% 2.5 MG/3 ML VIAL.NEB INH SCH ×4 (01:17→19:40)
--- NOTE | 2018-03-10 02:23 | NUR ---
Rounds: Patient is asleep in bed. No signs or symptoms of acute distress. Tolerating current vent settings. Call light is with patient. Seizure, safety, fall precautions in place. Will continue monitoring.
--- NOTE | 2018-03-10 04:42 | NUR ---
Colostomy emptied: Emptied colostomy bag at this time, loose brown stool noted in bag. No leakage noted. Call light with patient. Will continue to monitor.
--- NOTE | 2018-03-10 04:50 | NUR ---
Tubefeeding: Changed tubefeeding formula bottle and tubing at this time. G-tube dressing change performed. Patient tolerated well. Call light with patient. Will continue to monitor.
--- NOTE | 2018-03-10 05:00 | NUR ---
Wound care: Wound vac dressing changed at this time. Patient tolerated well. Suction at 125 resumed per MD order. Call light is with patient. Seizure, safety, fall precautions in place. Will monitor for leakage.
[2018-03-10] MEDS: FERROUS SULFATE 300 MG/5 ML UDC GT SCH ×3 (06:02→17:27)
[2018-03-10] MEDS: METOCLOPRAMIDE HCL 10 MG TABLET GT SCH ×3 (06:02→17:27)
--- NOTE | 2018-03-10 06:23 | NUR ---
Closing note: Patient resting in bed, no acute distress. Remains tolerating current ventilator settings. MARIBEL PICC remains patent, benign. Tubefeeding formula running well to g-tube site. Colostomy bag remains clean, dry, and intact. Hernandez catheter draining to gravity. Wound vac to suction in place. Seizure, safety, fall, and contact iso precautions observed throughout shift. All needs met. Call light with patient. Will endorse care to dayshift RN.
--- NOTE | 2018-03-10 06:45 | NUR ---
Lab draw: Called by wire preparation worker from lab, informed that blood could not be drawn and that they will try again in 30 minutes.
--- NOTE | 2018-03-10 07:55 | NUR ---
INITIAL NOTE RECEIVED PT IN BED, NO S/S OF DISTRESS OR SOB NOTED, PT HAS NO C/O PAIN AT THIS TIME, PT IN STABLE CONDITION, PT AAOX1. NONVERBAL, PROVIDED PT WITH REALITY ORIENTATION. PT HAS A PICC LINE ON RIGHT UPPER ARM, BOTH PORTS FLUSH AND HAVE BLOOD RETURN, DRESSING CLEAN AND DRY, NON OCCLUDED. BED AT LOWEST POSITION, CALL LIGHT WITHIN REACH, WILL CONTINUE TO MONITOR PT FOR ANY CHANGES, FALL, SEIZURE AND CONTACT AND SAFETY PRECAUTIONS IN PLACE. PT HAS BILATERAL SCD'S IN PLACE. PT ON VENTILATOR AT PRESCRIBED SETTINGS. PT HAS A G TUBE, PATENT, NO RESIDUAL, PLACEMENT VERIFIED AND FLUSHES, CLEAN AND DRY DRESSING. PT HAS A COLOSTOMY ON LEFT MID ABD, STOMA BEEFY RED. PT HAS WOUND VAC ON SACRAL AREA, NO LEAKAGE NOTED, CONTINUOS SUCTION AT 125MMHG, NOTED PINK DRAINAGE. F/C DRAINING VIA GRAVITY. PT ON AN AIR MATTRESS.
[2018-03-10] MEDS: BALSAM PERU/CASTOR OIL 60 GM OINT...G. TP SCH (08:28)
[2018-03-10 08:32] VITALS: BP_SYST 131
[2018-03-10 08:34] LABS: BASOPHILS # (AUTO) 0.1 K/uL (0.0-0.2); BASOPHILS % (AUTO) 1.2 % (0.0-2.0); EOSINOPHILS # (AUTO) 0.2 K/uL (0.0-0.4); EOSINOPHILS % (AUTO) 2.6 % (0.0-4.0); HEMATOCRIT 25.5 % (36-48); HEMOGLOBIN 8.2 g/dL (12.0-16.0); LYMPHOCYTES % (AUTO) 11.4 % (20.5-51.5); MEAN CORPUSCULAR HEMOGLOBIN 25 pg (27-31); MEAN CORPUSCULAR HGB CONC 32 % (32-36); MEAN CORPUSCULAR VOLUME 77 fL (79.0-98.0); MONOCYTES # (AUTO) 0.4 K/uL (0.0-1.0); MONOCYTES % (AUTO) 4.2 % (1.7-9.3); NEUTROPHILS # (AUTO) 7.1 K/uL (1.8-7.7); NEUTROPHILS % (AUTO) 80.6 % (40.0-70.0); PLATELET COUNT (AUTO) 288 K/uL (130-430); RED CELL DISTRIBUTION WIDTH 20.2 % (9.0-15.0); WHITE BLOOD COUNT (AUTO) 8.8 K/uL (4.8-10.8)
[2018-03-10 08:37] LABS: CREATININE 0.74 mg/dL (0.55-1.30); POTASSIUM 4.3 mmol/L (3.5-5.1); TOTAL BILIRUBIN 0.3 mg/dL (0.0-1.0)
[2018-03-10] MEDS: POTASSIUM CHLORIDE 20 MEQ/PKT PACKET GT SCH ×2 (08:42→22:00)
[2018-03-10] MEDS: ASCORBIC ACID 500 MG TABLET GT SCH ×2 (08:43→22:01)
[2018-03-10] MEDS: PANTOPRAZOLE GRANULES PACKET 40 MG GT SCH ×2 (08:43→22:00)
[2018-03-10] MEDS: LACTOBACILLUS RHAMNOSUS GG 1 CAP CAPSULE GT SCH ×2 (08:43→22:00)
[2018-03-10] MEDS: CALCIUM CARBONATE/VITAMIN D3 1 TAB TABLET GT SCH ×2 (08:43→22:00)
[2018-03-10] MEDS: NAPH,MB-DB/K PH,MBDB 250 MG TAB GT SCH ×2 (08:43→22:00)
[2018-03-10] MEDS: LACTULOSE 20 GM/30 ML UDC GT SCH ×2 (08:43→21:59)
[2018-03-10] MEDS: CHOLECALCIFEROL (VITAMIN D3) 2,000 UNIT TABLET GT SCH (08:43)
[2018-03-10] MEDS: LevETIRAcetam 500 MG/5 ML UDC ORAL LIQUID GT SCH ×2 (08:44→22:00)
[2018-03-10] MEDS: SODIUM CHLORIDE 500 MG TABLET GT SCH ×3 (08:44→22:00)
[2018-03-10] MEDS: MULTIVIT-MINERALS/FERROUS GLUC 15 ML UDC GT SCH (08:44)
--- NOTE | 2018-03-10 10:57 | NUR ---
Discharge Planning Xu CARMONA, Wound Care, is recommending continuation of the wound vac at home. MATERIAL HANDLING EQUIPMENT STEVEDORE phoned Joseph with [employer], who is providing the ventilator, and left a voicemail. Phoned Genet at [employer] office, . She stated that they do not provide wound vac for patient's insurance. She suggested [facility], . MATERIAL HANDLING EQUIPMENT STEVEDORE called and no answer. Phoned [employer] (the company providing patient's home health care). They suggested [facility] for wound vac. Phoned [facility], , and spoke with Christopher. He stated they work with most all insurances. He faxed the authorization form and MORGAN provided the form to Xu CARMONA. Will continue to follow. Addendum: 03/10/18 at 1504 by Tiera Chua LCSW Xu CARMONAsports equipment racker notified MATERIAL HANDLING EQUIPMENT STEVEDORE that the wound vac auth had been completed and signed by attending MD, Dr Valentine. MATERIAL HANDLING EQUIPMENT STEVEDORE faxed the auth and supporting documents to [facility], p [phone] f [phone]. MORGAN left 2 messages and then phoned Joseph Rex with [employer] for home vent. He stated they had phoned patient's daughter yesterday and this morning and were waiting for a call back regarding scheduling of training. MORGAN met with patient's daughter in the hallway. She showed her phone that indicated only one message was received from [employer] this morning. She was working and called in the last hour. She has now been told that both caregivers need one more one hour training, when she was previously told that she had completed that training. The soonest that training can take place is March 13 12 to 2 pm. It was scheduled. Addendum: 03/10/18 at 1627 by Tiera ELLIOTTW WOUND SANDRA Yi at [facility], p [phone] f [phone], has confirmed receipt of the fax. Order # [id number]. If approved, plan to deliver Tuesday03/15/18. Status of order can be checked [email or web address].
[2018-03-10] MEDS: INSULIN REGULAR, HUMAN 100 UNITS/ML, 10 ML VIAL (novoLIN R) SUBCUT PRN ×2 (11:24→17:32)
[2018-03-10 12:17] VITALS: BP_SYST 127
--- NOTE | 2018-03-10 14:55 | NUR ---
COLOSTOMY BAG CHANGED COLOSTOMY BAG CHANGED IT CAME OFF, STOMA BEEFY RED IN COLOR, STOOL LOOSE AND BROWN IN COLOR. PT TOLERATED.
--- NOTE | 2018-03-10 14:57 | NUR ---
FAMILY PATIENT HAS A FAMILY AT BEDSIDE, SPOKE WITH CLIENT TECHNICAL SUPPORT ASSOCIATE AND AWARE OF POC.
--- NOTE | 2018-03-10 16:13 | NUR ---
Discharge Planning: [facility] has confirmed that final bedside training with [facility] will take place on 03/13/18 from 12:00pm-2:00pm. The [facility] RT will be at hospital on 03/13/18 from 5:00pm-7:00pm to start the pt on the 24 hour ventilator trial. The [facility] RT will come back at 03/14/18 at the conclusion of the 24 hour trial to remove pt from [facility] ventilator. [facility] has asked weekend CM to follow up with pt's doctor regarding home health orders for pt.
[2018-03-10 16:17] VITALS: BP_SYST 131
[2018-03-10] MEDS: EPOETIN ALFA 10,000 UNITS/ML VIAL SUBCUT SCH (17:28)
--- NOTE | 2018-03-10 18:18 | NUR ---
CLOSING NOTE PT IN BED, NO S/S OF DISTRESS OR SOB NOTED, PT HAS NO C/O PAIN AT THIS TIME, PT IN STABLE CONDITION, PT AAOX1. NONVERBAL, PROVIDED PT WITH REALITY ORIENTATION. PT HAS A PICC LINE ON RIGHT UPPER ARM, DRESSING CLEAN AND DRY, NON OCCLUDED. BED AT LOWEST POSITION, CALL LIGHT WITHIN REACH, WILL ENDORSE CARE OF PT TO INCOMING NURSE, FALL, SEIZURE AND CONTACT AND SAFETY PRECAUTIONS IN PLACE. PT HAS BILATERAL SCD'S IN PLACE. PT ON VENTILATOR AT PRESCRIBED SETTINGS. PT HAS A G TUBE, PATENT, FLUSHES, TOLERATING FEEDINGS. PT HAS A COLOSTOMY ON LEFT MID ABD, STOMA BEEFY RED. PT HAS WOUND VAC ON SACRAL AREA, NO LEAKAGE NOTED, CONTINUOS SUCTION AT 125MMHG, NOTED PINK DRAINAGE. F/C DRAINING VIA GRAVITY. PT ON AN AIR MATTRESS.
--- NOTE | 2018-03-10 19:35 | NUR ---
OPENING NOTE RECEIVED CARE OF PT AND BEDSIDE REPORT. PT IN RESTING COMFORTABLY IN BED WITH EYES OPEN, NO SIGNS OF ACUTE DISTRESS. PT TOLERATING VENT SETTING WELL. PICC LINE DRESSING IS DRY AND INTACT. MANJARREZ CATHETER IS INTACT AND DRAINING TO GRAVITY. TUBE FEEDING RUNNING ORDERED. SAFETY, SEIZURE, CONTACT, AND ASPIRATION PRECAUTIONS MAINTAINED. WILL MONITOR.
[2018-03-10 20:00] VITALS: BP_SYST 108
--- NOTE | 2018-03-10 21:30 | NUR ---
RN NOTE PT REPOSITIONED IN BED FOR COMFORT. TOLERATING VENT SETTINGS WELL. ORAL CARE PERFORMED. SAFETY, SEIZURE, CONTACT AND ASPIRATION PRECAUTIONS MAINTAINED. WILL MONITOR.
[2018-03-10 23:31] VITALS: BP_SYST 124
--- NOTE | 2018-03-10 23:45 | NUR ---
RN ROUNDS PT RESTING IN BED WITH EYES CLOSED. NO SIGN OF ACUTE DISTRESS NOTED. PT REPOSITIONED IN BED. WOUND VAC TO SUCTION, TUBE FEEDING RUNNING ORDERED. TOLERATING VENT SETTINGS WELL. SAFETY PRECAUTIONS IN PLACE. WILL MONITOR
[2018-03-11] MEDS: METOCLOPRAMIDE HCL 10 MG TABLET GT SCH ×5 (00:09→23:20)
[2018-03-11] MEDS: ALBUTEROL SULFATE 0.083% 2.5 MG/3 ML VIAL.NEB INH SCH ×3 (01:19→19:38)
[2018-03-11] MEDS: IPRATROPIUM BROM 0.5 MG/2.5 ML VIAL.NEB (ATROVENT) INH SCH ×3 (01:19→19:38)
--- NOTE | 2018-03-11 02:15 | NUR ---
RN ROUNDS PT RESTING WITH EYES CLOSED. BREATHING IS EFFORTLESS TO VENT SETTINGS. NO SIGNS OF DISTRESS NOTED. WOUND VAC TO SUCTION, TUBE FEEDING RUNNING ORDERED. SAFETY, ASPIRATION, CONTACT, AND SEIZURE PRECAUTIONS IN PLACE. WILL MONITOR.
--- NOTE | 2018-03-11 04:30 | NUR ---
PICC DRESSING CHANGE UPPER RIGHT ARM PICC LINE DRESSING CHANGED USING STERILE TECHNIQUE. PT TOLERATED PROCEDURE WELL.
[2018-03-11] MEDS: FERROUS SULFATE 300 MG/5 ML UDC GT SCH ×3 (06:36→17:38)
[2018-03-11] MEDS: INSULIN REGULAR, HUMAN 100 UNITS/ML, 10 ML VIAL (novoLIN R) SUBCUT PRN ×4 (06:40→20:44)
--- NOTE | 2018-03-11 06:45 | NUR ---
ACCUCHECK PT BLOOD SUGAR IS 167. 2 UNITS OF REGULAR INSULIN GIVEN PER SLIDING SCALE.
--- NOTE | 2018-03-11 06:55 | NUR ---
CLOSING NOTE PT RESTING IN BED WITH EYES CLOSED. PT REPOSITIONED AND ORAL CARE PROVIDED. WOUND VAC TO SUCTION, TUBE FEEDING RUNNING ORDERED. ALL NEEDS MET DURING SHIFT. SEIZURE, ASPIRATION, CONTACT, AND SAFETY PRECAUTIONS IN PLACE. WILL ENDORSE CARE TO DAY SHIFT.
[2018-03-11 07:30] VITALS: BP_SYST 132
[2018-03-11 07:35] VITALS: BP_SYST 132
--- NOTE | 2018-03-11 08:00 | NUR ---
AM NOTES Patient laying in bed resting. Patient is awake, nonverbal. No s/s of distress, SOB or pain. PICC lines patent, intact, dressing is dry (Dressing change due Mar 18, 2018). Gtube patent, intact, tube feeding running well. HOB elevated. SCD's applied bilaterally. Trach [facility] to [facility] vent, settings FIO2=25, PEEP=5, RATE=14, FDKOS=661. Contact and seizure precautions in place. Bed in lowest position, call light within reach. Addendum: 03/11/18 at 1335 by Luisa Lim RN ADDITION Wound vac working properly. Colostomy bag intact.
[2018-03-11] MEDS: LACTOBACILLUS RHAMNOSUS GG 1 CAP CAPSULE GT SCH ×2 (08:16→20:31)
[2018-03-11] MEDS: NAPH,MB-DB/K PH,MBDB 250 MG TAB GT SCH ×2 (08:16→20:31)
[2018-03-11] MEDS: ASCORBIC ACID 500 MG TABLET GT SCH ×2 (08:17→20:31)
[2018-03-11] MEDS: CALCIUM CARBONATE/VITAMIN D3 1 TAB TABLET GT SCH ×2 (08:17→20:31)
[2018-03-11] MEDS: PANTOPRAZOLE GRANULES PACKET 40 MG GT SCH ×2 (08:17→20:31)
[2018-03-11] MEDS: SODIUM CHLORIDE 500 MG TABLET GT SCH ×3 (08:17→20:32)
[2018-03-11] MEDS: CHOLECALCIFEROL (VITAMIN D3) 2,000 UNIT TABLET GT SCH (08:17)
[2018-03-11] MEDS: LACTULOSE 20 GM/30 ML UDC GT SCH ×2 (08:18→20:31)
[2018-03-11] MEDS: MULTIVIT-MINERALS/FERROUS GLUC 15 ML UDC GT SCH (08:18)
[2018-03-11] MEDS: POTASSIUM CHLORIDE 20 MEQ/PKT PACKET GT SCH ×2 (08:18→20:31)
[2018-03-11] MEDS: LevETIRAcetam 500 MG/5 ML UDC ORAL LIQUID GT SCH ×2 (08:19→20:32)
[2018-03-11] MEDS: BALSAM PERU/CASTOR OIL 60 GM OINT...G. TP SCH (08:19)
--- NOTE | 2018-03-11 09:00 | NUR ---
MORNING MEDICATIONS All morning medications passed. No residual noted in G-tube prior to administration. Addendum: 03/11/18 at 1031 by Luisa Lim RN ADDITION Venelex not administered. Wound care done 03/10/18, next due 03/13/18.
[2018-03-11] MEDS: ONDANSETRON HCL 4 MG/2 ML VIAL IVP PRN (09:17)
--- NOTE | 2018-03-11 09:30 | NUR ---
VOMITED Patient vomited moderate amount of yellow emesis. Trach and mouth suctioned. HOB remains elevated at 45degrees. Gown and bed linen changed. PRN Zofran administered. Will cont. to monitor.
--- NOTE | 2018-03-11 11:30 | NUR ---
ROUNDS Patient laying in bed resting. No s/s of distress or SOB. All needs being met. Bed in lowest position, call light within reach, HOB elevated to 45 degrees. Will cont. to monitor.
[2018-03-11 11:34] VITALS: BP_SYST 146
--- NOTE | 2018-03-11 14:00 | NUR ---
ROUNDS Patient laying in bed resting. No s/s of distress or SOB, patient tolerating vent settings. All needs being met. Bed in lowest position, call light within reach, HOB elevated to 45 degrees, patient tolerating Gtube feeding. Will cont. to monitor.
--- NOTE | 2018-03-11 14:30 | NUR ---
COLOSTOMY BAG Colostomy bag emptied. Small amount (15cc) of light brown stool with strong odor noted. Stoma is red, bag intact.
[2018-03-11 15:31] VITALS: BP_SYST 139
--- NOTE | 2018-03-11 16:08 | NUR ---
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 Coli, Hx CVA 03/11/18 ID Note: septic shock (resolved), aspiration pneumonia, complicated UTI -- ESBL E. Coli, MRSA colonization, s/p CVA, MDR/OCCUPATIONAL HEALTH NURSE Acinetobacter pneumonia, leukocytosis -- reactive Subjective Information Pt was sleeping w/ TF infusing as per MD orders. Per RN, pt has been tolerating TF, no residuals. Pt had an episode of vomiting, possibly d/t excessive fluids per RN report. TF was held for a short amount of time per RN. Per EMR, TF Intakes: 540 ml 03/11/18. Residuals: 0 ml 03/11/17. Abd is soft w/ active bowel sounds. Output (stool): 40 ml 03/07/18. I/O: 0/200 (-200 ml) per 12 hours. Pt continues to benefit from an increase in nutrition support to aid for possible hypermetabolic state. Current Diet Order/Nutrition Support Glucerna 1.5 at 45 ml/hr, Marques BID, [employer] TID, Free Water Flush: 200 ml Q4h via GT x4 days Patient/Significant Other Unable To Verbalize Education Provided Not Indicated Pertinent Medications neutraphos, reglan, zofran, calcium/VIT D, protonix, culturelle, centrum, zinc sulfate, os-shorty, VIT C, ferrous sulfate, SSI, tums, lactulose, KCl packet Pertinent Labs POC BG 167 H, BG 170 H, BUN 34 H, H/H 8.2 L/25.5 L, WBC 8.8 WNL (improved), ALB 2 L, Na 136 WNL (improved) Height (Feet 5 feet Height (Inches) 3.00 inches Weight (Pounds) 152 pounds (01/17/18) BED SCALE WT: 186.5 lb (01/23/18); 168 lb (02/16/18); 177 lb (02/21/18); 176 lb (02/25/18); 167 lb (03/11/18) -- may be inaccurate d/t blankets/pillows Weight (Calculated Kilograms) 68.387277 kilograms Patient Weight 68.946 kg Body Mass Index 26.92 kg/m2 %IBW 133 [place]/Adjusted Body Weight IBW: 115 lb, 52 kg. Adj IBW (obesity): 124 lb, 56 kg Recent Weight Change No Weight Status Overweight Last BM 02/21/18 Food Allergies No Usual Diet At Home Unable to assess per EMR Skin Integrity Comment: Jeff scale: 12; per Associate Media Director note 02/24/18: 1. Sacral-Coccygeal area: Pressure ulcer, present on admission. Wound bed has 50% pink tissue, 40% light yellow tissue, 10% dark colored tissue (not eschar). No odor, scant sanguineous drainage. Dark discolored tissue present on surrounding tissue. Wound measures 6.5 cm 6.0 cm x 4.0 cm. Undermining present from 12-5 o-clock (12 o'clock measured 1.0 cm; 3 o'clock measured 1.8 cm). Periwound is white from 11-1 o'clock. Generalized 1+ non-pitting edema and L arm w/ 2+ non-pitting edema Estimated Energy Expenditure (kcals/day) 7881-4806 kcal/day (30-35 kcal/kg Adj IBW for wound healing) Estimated Protein Required (g/day) 67-112 gm/day (1.2-2 gm/kg Adj IBW for wound healing) Estimated Fluid Required (l/day) Per MD (ARF) Problem/Etiology/Signs/Symptoms Inadequate enteral nutrition related to metabolic demands as evidenced by current TF regimen meets 79% of estimated caloric needs and 94% of estimated protein needs. *improving Expected Outcomes/Goals - Monitor tolerance to EN support w/ goal of pt meeting at least 85% of estimated nutritional needs, labs trending WNL, normal GI function, and skin integrity/wt maintenance Dietitian Recommendations * Recommend Glucerna 1.5 at 45 ml/hr, Marques BID, Prosource TID, Free Water Flush: 200 ml Q4h via GT per MD Provides: 1980 kcal/day, 139 gm protein/day, and 2020 ml free water/day Meets: 101% of upper end of estimated caloric needs and 124% of upper end of estimated protein needs Follow Up Moderate Risk: F/U in 3-5 days
--- NOTE | 2018-03-11 17:45 | NUR ---
ORAL CARE Patient suctioned, oral and trach care done. Patient tolerated procedure well.
--- NOTE | 2018-03-11 19:26 | NUR ---
CLOSING NOTES Patient laying in bed resting. No s/s of distress, SOB or pain. All needs met throughout shift. PICC line patent, intact, dressing is dry. Colostomy bag intact. Gtube patent, intact, feeding running as ordered. Hernandez catheter patent, intact, urine bag drained. SCD's on bilaterally. Bed in lowest position, call light within reach. Endorsed to shift production associate RN.
--- NOTE | 2018-03-11 19:32 | NUR ---
OPENING NOTES Pt and endorsement received from day shift nurse. Pt is awake, non-verbal, and lying in bed. Pt on vent with settings FiO2: 25%, TV: 500, AC: 14, PEEP:5. Pt on G-Tube feeding and infusing well. Pt on PICC line on right upper arm, saline lock. Pt on ortiz catheter with yellow urine noted in the bag. Pt on wound vac with brown drainage noted in the canister. No signs of acute distress or SOB noted. Safety precautions in place with 3 side rails up, bed alarm on and at lowest level, and seizure pads in place. Call light with pt. Will continue to monitor.
[2018-03-11 20:25] VITALS: BP_SYST 143
--- NOTE | 2018-03-11 20:40 | NUR ---
MED PASS Assessed for bowel sounds and is active upon auscultation. Assessed for residual and is 0. All oral meds given via G-Tube. Pt tolerated well. Continued tube feeding as ordered. Aspiration precautions maintained with head elevated 40 degrees. Tracheal suctioning done as needed. Safety precautions and seizure precautions in place. Will continue to monitor.
[2018-03-11 23:39] VITALS: BP_SYST 134
--- NOTE | 2018-03-11 23:45 | NUR ---
ORAL CARE Oral care rendered. Pt tolerated well. Suctioning done by RT Smita. No signs of acute distress noted. Aspiration precautions maintained with head elevated at 40 degrees. Safety and seizure precautions in place. Call light with pt. Will continue to monitor.
[2018-03-12] MEDS: IPRATROPIUM BROM 0.5 MG/2.5 ML VIAL.NEB (ATROVENT) INH SCH ×4 (01:26→19:46)
[2018-03-12] MEDS: ALBUTEROL SULFATE 0.083% 2.5 MG/3 ML VIAL.NEB INH SCH ×4 (01:26→19:46)
--- NOTE | 2018-03-12 02:09 | NUR ---
RESTING Pt is resting in bed with both eyes closed. With visible chest rise and fall with unlabored breathing noted. No signs of acute distress or SOB noted. G-tube feeding is patent and infusing well. Safety, seizure and aspiration precautions in place. Will continue to monitor.
--- NOTE | 2018-03-12 04:45 | NUR ---
RESTING Pt is resting in bed with both eyes closed, with visible chest rise and fall with unlabored breathing noted. No signs of acute distress noted. Oral care rendered. Tracheal suctioning done as needed. Safety, aspiration and seizure precautions in place. Call light with pt. Will continue to monitor.
[2018-03-12] MEDS: METOCLOPRAMIDE HCL 10 MG TABLET GT SCH ×4 (06:06→23:29)
[2018-03-12] MEDS: FERROUS SULFATE 300 MG/5 ML UDC GT SCH ×3 (06:06→17:15)
[2018-03-12] MEDS: INSULIN REGULAR, HUMAN 100 UNITS/ML, 10 ML VIAL (novoLIN R) SUBCUT PRN ×4 (06:13→21:59)
--- NOTE | 2018-03-12 07:00 | NUR ---
CLOSING NOTES Pt is resting in bed with both eyes closed, with visible chest rise and fall with unlabored breathing noted. Mech vent settings maintained and no changes were made. G-tube feeding is patent and infusing well. No signs of acute distress noted. All needs attended throughout the shift. Call light with pt. Safety, aspiration and seizure precautions maintained. Will endorse to day shift nurse.
[2018-03-12 07:22] LABS: BASOPHILS % (AUTO) 0.4 % (0.0-2.0); EOSINOPHILS # (AUTO) 0.2 K/uL (0.0-0.4); EOSINOPHILS % (AUTO) 1.8 % (0.0-4.0); LYMPHOCYTES # (AUTO) 1.2 K/uL (1.0-5.5); LYMPHOCYTES % (AUTO) 9.6 % (20.5-51.5); MEAN CORPUSCULAR HEMOGLOBIN 24 pg (27-31); MEAN CORPUSCULAR HGB CONC 32 % (32-36); MEAN CORPUSCULAR VOLUME 77 fL (79.0-98.0); MONOCYTES # (AUTO) 0.6 K/uL (0.0-1.0); MONOCYTES % (AUTO) 5.3 % (1.7-9.3); NEUTROPHILS % (AUTO) 82.9 % (40.0-70.0); PLATELET COUNT (AUTO) 312 K/uL (130-430); RED BLOOD CELL COUNT(AUTO) 3.26 MIL/uL (4.2-6.2); RED CELL DISTRIBUTION WIDTH 20.6 % (9.0-15.0)
[2018-03-12 07:30] VITALS: BP_SYST 132
--- NOTE | 2018-03-12 07:30 | NUR ---
AM NOTES Patient laying in bed resting. Patient is awake, nonverbal. No s/s of distress, SOB or pain. PICC lines patent, intact, dressing is dry (Dressing change due Mar 18, 2018). Wound vac intact and working. Colostomy bag intact. Gtube patent, intact, tube feeding running well. HOB elevated. SCD's applied bilaterally. [facility], settings FIO2=25, PEEP=5, RATE=14, TIAUK=491, patient tolerating setting well. Contact and seizure precautions in place. Bed in lowest position, call light within reach.
[2018-03-12 07:46] LABS: CREATININE 0.82 mg/dL (0.55-1.30); POTASSIUM 4.7 mmol/L (3.5-5.1)
[2018-03-12 08:08] LABS: CALCIUM 9.5 mg/dL (8.4-11.0)
[2018-03-12] MEDS: LACTULOSE 20 GM/30 ML UDC GT SCH ×2 (08:27→21:49)
[2018-03-12] MEDS: NAPH,MB-DB/K PH,MBDB 250 MG TAB GT SCH ×2 (08:27→21:49)
[2018-03-12] MEDS: LACTOBACILLUS RHAMNOSUS GG 1 CAP CAPSULE GT SCH ×2 (08:27→21:48)
[2018-03-12] MEDS: POTASSIUM CHLORIDE 20 MEQ/PKT PACKET GT SCH ×2 (08:27→21:48)
[2018-03-12] MEDS: PANTOPRAZOLE GRANULES PACKET 40 MG GT SCH ×2 (08:27→21:48)
[2018-03-12] MEDS: SODIUM CHLORIDE 500 MG TABLET GT SCH ×3 (08:27→21:49)
[2018-03-12] MEDS: CHOLECALCIFEROL (VITAMIN D3) 2,000 UNIT TABLET GT SCH (08:27)
[2018-03-12] MEDS: ASCORBIC ACID 500 MG TABLET GT SCH ×2 (08:27→21:49)
[2018-03-12] MEDS: BALSAM PERU/CASTOR OIL 60 GM OINT...G. TP SCH (08:28)
[2018-03-12] MEDS: MULTIVIT-MINERALS/FERROUS GLUC 15 ML UDC GT SCH (08:28)
[2018-03-12] MEDS: LevETIRAcetam 500 MG/5 ML UDC ORAL LIQUID GT SCH ×2 (08:28→21:50)
[2018-03-12] MEDS: CALCIUM CARBONATE/VITAMIN D3 1 TAB TABLET GT SCH ×2 (08:28→21:49)
--- NOTE | 2018-03-12 09:00 | NUR ---
MORNING MEDICATIONS All G-tube medications administered. No residual noted in gtube. Venelex ointment not administered. Wound vac dressing change due 03/13/18 (MWF).
--- NOTE | 2018-03-12 11:30 | NUR ---
ROUNDS Patient laying in bed resting. No s/s of distress or SOB. All needs being met. Hygiene care done, linen changed. Safety, seizure and contact precautions maintained. Bed in lowest position, call light within reach.
[2018-03-12 12:39] VITALS: BP_SYST 133
--- NOTE | 2018-03-12 14:45 | NUR ---
ROUNDS Patient laying in bed resting. No s/s of distress or SOB. All needs being met. Oral care provided. Safety, seizure and contact precautions maintained. Bed in lowest position, call light within reach.
[2018-03-12 16:35] VITALS: BP_SYST 130
[2018-03-12] MEDS: SOD FERRIC GLUC COMPLEX/SUC 125 MG in NS 100 ML IV SCH (17:17)
--- NOTE | 2018-03-12 18:34 | NUR ---
CLOSING NOTES Patient laying in bed resting. No s/s of distress, SOB or pain. All needs met throughout shift. PICC line patent, intact, dressing is dry, no s/s of infiltration. Colostomy bag intact, emptied. Gtube patent, intact, feeding running as ordered. Hernandez catheter patent, intact, urine bag drained. SCD's on bilaterally. Wound Vac connected, no drainage noted today. Contact, safety, seizure precautions maintained. Bed in lowest position, call light within reach. Will endorse to shift leader RN.
--- NOTE | 2018-03-12 19:05 | NUR ---
Opening notes Received report. Patient is resting in bed, eyes open. No signs of distress noted. Patient tolerating current vent settings. PICC line intact, saline locked. Hernandez catheter in place. Tube feeding in place. Bilateral SCDs in place. Colostomy bag in place. Wound vac in place. Safety and seizure precautions in place.
[2018-03-12 20:00] VITALS: BP_SYST 128
--- NOTE | 2018-03-12 21:50 | NUR ---
SCHEDULED MEDS SCHEDULED MEDICATIONS GIVEN VIA G-TUBE AT THIS TIME. MINIMAL AMOUNT OF RESIDUAL NOTED. PATIENT TOLERATED WELL.
--- NOTE | 2018-03-13 | NUR ---
RN ROUNDS PATIENT LAYING IN BED, EYES OPEN. NO SIGNS OF DISTRESS NOTED. PATIENT TOLERATING VENT SETTINGS.
[2018-03-13 00:37] VITALS: BP_SYST 144
[2018-03-13] MEDS: ALBUTEROL SULFATE 0.083% 2.5 MG/3 ML VIAL.NEB INH SCH ×3 (01:26→19:56)
[2018-03-13] MEDS: IPRATROPIUM BROM 0.5 MG/2.5 ML VIAL.NEB (ATROVENT) INH SCH ×3 (01:26→19:56)
--- NOTE | 2018-03-13 02:00 | NUR ---
RN ROUNDS PATIENT RESTING IN BED, EYES CLOSED. NO SIGNS OF DISTRESS NOTED. SAFETY AND SEIZURE PRECAUTIONS IN PLACE.
--- NOTE | 2018-03-13 04:17 | NUR ---
WOUND VAC DRESSING CHANGE WOUND VAC DRESSING CHANGED. NO LEAKAGE NOTED. PATIENT TOLERATED WELL. NO SIGNS OF DISTRESS NOTED.
[2018-03-13] MEDS: FERROUS SULFATE 300 MG/5 ML UDC GT SCH ×3 (06:09→16:38)
[2018-03-13] MEDS: METOCLOPRAMIDE HCL 10 MG TABLET GT SCH ×4 (06:09→23:17)
[2018-03-13] MEDS: INSULIN REGULAR, HUMAN 100 UNITS/ML, 10 ML VIAL (novoLIN R) SUBCUT PRN ×3 (06:24→21:27)
[2018-03-13 08:00] VITALS: BP_SYST 134
--- NOTE | 2018-03-13 08:00 | NUR ---
OPENING NOTE: RECEIVED REPORT FROM NIGHT NURSE. PATIENT IS RESTING COMFORTABLY IN BED. NO S/S OF DISTRESS OR SOB. PATIENT IS NOT ALERT, NON VERBAL. PATIENT ON MECHANICAL VENTILATOR. PICC LINE ON RIGHT UPPER ARM. MANJARREZ CATHETER DRAINING TO GRAVITY. SCD'S IN PLACE. TUBE-FEEDING RUNNING AT 45CC/HR. TOLERATING WELL. PATIENT IN CONTACT ISOLATION. SEIZURE PRECAUTIONS IN PLACE. BED IN LOWEST POSITION, AND WILL CONTINUE TO MONITOR.
[2018-03-13] MEDS: BALSAM PERU/CASTOR OIL 60 GM OINT...G. TP SCH (09:00)
[2018-03-13] MEDS: CALCIUM CARBONATE/VITAMIN D3 1 TAB TABLET GT SCH ×2 (09:32→21:19)
[2018-03-13] MEDS: MULTIVIT-MINERALS/FERROUS GLUC 15 ML UDC GT SCH (09:32)
[2018-03-13] MEDS: LACTOBACILLUS RHAMNOSUS GG 1 CAP CAPSULE GT SCH ×2 (09:32→21:19)
[2018-03-13] MEDS: LevETIRAcetam 500 MG/5 ML UDC ORAL LIQUID GT SCH ×2 (09:32→21:18)
[2018-03-13] MEDS: LACTULOSE 20 GM/30 ML UDC GT SCH ×2 (09:32→21:18)
[2018-03-13] MEDS: SODIUM CHLORIDE 500 MG TABLET GT SCH ×3 (09:33→21:19)
[2018-03-13] MEDS: CHOLECALCIFEROL (VITAMIN D3) 2,000 UNIT TABLET GT SCH (09:33)
[2018-03-13] MEDS: PANTOPRAZOLE GRANULES PACKET 40 MG GT SCH ×2 (09:33→21:19)
[2018-03-13] MEDS: NAPH,MB-DB/K PH,MBDB 250 MG TAB GT SCH ×2 (09:33→21:19)
[2018-03-13] MEDS: POTASSIUM CHLORIDE 20 MEQ/PKT PACKET GT SCH ×2 (09:33→21:19)
[2018-03-13] MEDS: ASCORBIC ACID 500 MG TABLET GT SCH ×2 (09:33→21:19)
--- NOTE | 2018-03-13 10:00 | NUR ---
RN ROUNDS PATIENT IS RESTING COMFORTABLY IN BED. NO S/S OF DISTRESS OR SOB. PATIENT REPOSITIONED. COLOSTOMY BAG CHANGED. NO OTHER NEEDS AT THE MOMENT. CALL LIGHT IN REACH, BED IN LOWEST POSITION, AND WILL CONTINUE TO MONITOR.
--- NOTE | 2018-03-13 12:00 | NUR ---
RN ROUNDS PATIENT IS RESTING COMFORTABLY IN BED. NO S/S OF DISTRESS OR SOB. PATIENT IS NON VERBAL, NOT ALERT. PATIENT REPOSITIONED AND ORAL DONE. CALL LIGHT IN REACH, BED IN LOWEST POSITION, AND WILL CONTINUE TO MONITOR.
[2018-03-13 12:33] VITALS: BP_SYST 130
--- NOTE | 2018-03-13 13:30 | NUR ---
DC Planning: late entry: met with Maci and Sammy to discuss dcp the pt. to home tentatively on Tuesday. Both agreed with the dc plan. The discussion included Ventilator support care by [employer] : -Ventilator setup at home and supplies needed per [employer] [facility] list. -Suction Machine -Oxygen concentrator -RT monthly scheduled visit and 06/09 as needed. GT feeding: Per dr. Valentine, to continue same order. The pt would need the GT pump and formula/Glucerna.-Drea,DCP to process. Addendum: 03/14/18 at 1103 by Rosy Winslow RN Colostomy and F/C supply: Maci requested 1-2 extra colostomy bags and F/C 28 fr. take home with. Wound Vac: provided by [employer] [facility], expecting to be delivered to home on Tuesday. Contact info: >> [employer] Ventilator,tel # [phone], , address: [address] [place] [address] >> [facility] / wound Vac, tel # [phone] f [phone], Order # [id number]. >> [facility] [facility], [facility], tel # [phone] attn: Denise or Faby; will provide assessment, monitor and treatment for the trach site care, wound care, f/c care, GT site and feeding care. >> [facility] company/ GT feeding pump, , fax # [phone]-- Drea will confirm the acceptance and delivery date. >> Addendum: 03/14/18 at 1147 by Rosy Winslow RN late entry: regarding pt insurance which needed to be clarified by admitting dept. KIERRA informed Carmenza that kierra Sommers at [facility] stated the entire inpatient stay is denied. She said the pt should be covered by Medicare AB. The pt was at home and was not hospitalized for more than 60 days which the Medicare new benefit period should be regenerated. So that, javier admission with new Vent should be covered under Medicare A/B starting before admitting to [facility]. [facility] became affective on February 14, 2018 and is not at risk for this admission. She said , Medicare AB is the primary insurance, [facility] is the secondary insurance. >> Matthieu provided authorization for [facility] ambulance transfer, may use [facility] or any ambulance who can provide the service with auth # [id number] PTR. (Matthieu, tel # [phone]). Addendum: 03/14/18 at 1155 by Rosy Winslow RN >> Received call from Mo today: stated she reviewed the pt's insurance benefits again. She found updated info that [facility] Lala is to follow the cares and is at risk for the inpatient stay. She will send the update of the approval date(s) to admitting dept. Carmenza/Donna made aware.
--- NOTE | 2018-03-13 14:00 | NUR ---
RN ROUNDS PATIENT IS RESTING COMFORTABLY IN BED. RESPIRATORY THERAPIST FROM [employer] PROVIDING VENTILATOR FOR HOME USE AT BEDSIDE SETTING EVERYTHING UP TO TEACH FAMILY. NO NEEDS AT THIS TIME. CALL LIGHT IN REACH, BED IN LOWEST POSITION, AND WILL CONTINUE TO MONITOR.
--- NOTE | 2018-03-13 14:20 | NUR ---
RT CALLED TO ROOM TO TRANSFER PT TO HOME VENT ([facility]) VIA RT FROM COMPANY PROVIDING VENTILATOR. . PT TRANSFERRED TO [facility] WITH NO COMPLICATIONS ON CURRENT VENT SETTINGS. PT STABLE FAMILY AT BEDSIDE WITH PRIVATE RT.AT BEDSIDE FOR 1HOUR.
--- NOTE | 2018-03-13 16:03 | NUR ---
RN ROUNDS PATIENT IS RESTING COMFORTABLY IN BED. PATIENT ON HOME VENTILATOR. SAME SETTINGS APPLIED AND PATIENT TOLERATING WELL. NO FAMILY AT BEDSIDE. PATIENT REPOSITIONED. NO NEEDS AT THIS TIME. CALL LIGHT IN REACH, BED IN LOWEST POSITION, AND WILL CONTINUE TO MONITOR.
[2018-03-13 16:25] VITALS: BP_SYST 137
[2018-03-13] MEDS: SOD FERRIC GLUC COMPLEX/SUC 125 MG in NS 100 ML IV SCH ×2 (16:38→21:30)
[2018-03-13] MEDS: EPOETIN ALFA 10,000 UNITS/ML VIAL SUBCUT SCH (16:38)
--- NOTE | 2018-03-13 17:15 | NUR ---
PICC LINE REMOVED
--- NOTE | 2018-03-13 18:08 | NUR ---
NEW IV STARTED ON LEFT HAND #22 GAUGE
--- NOTE | 2018-03-13 18:23 | NUR ---
GTUBE CLOGGED. MULTIPLE ATTEMPTS BY MULTIPLE RN'S MADE TO CLEAR IT, BUT ALL UNSUCCESSFUL. DR. ALBARO AMES. WILL INFORM NIGHT NURSE.
--- NOTE | 2018-03-13 18:30 | NUR ---
CLOSING NOTE: PATIENT IS RESTING COMFORTABLY IN BED. NO S/S OF DISTRESS OR SOB. PATIENT ON HOME VENTILATOR. DR. IRVIN AWARE OF CLOGGED G-TUBE. STATED THAT DR. GRAY WILL MAKE ROUNDS AND SEE HER TOMORROW. ALL NEEDS MET DURING SHIFT. SON IS AT BEDSIDE TO DO 24 HOUR TEST CARE RUN. CALL LIGHT IN REACH, BED IN LOWEST POSITION, AND WILL GIVE REPORT TO NIGHT NURSE.
--- NOTE | 2018-03-13 19:15 | NUR ---
OPENING NOTES RECEIVED REPORT. PATIENT RESTING IN BED, EYES OPEN. NO SIGNS OF DISTRESS NOTED. PATIENT ON HOME VENTILATOR, TOLERATING WELL. G TUBE IS UNCLOGGED AND FLUSHING WELL. SON IS AT THE BEDSIDE. SAFETY PRECAUTIONS IN PLACE.
[2018-03-13 20:00] VITALS: BP_SYST 135
--- NOTE | 2018-03-13 21:30 | NUR ---
SCHEDULED MEDS SCHEDULED MEDS GIVEN VIA G-TUBE AT THIS TIME. MINIMAL AMOUNT OF RESIDUAL NOTED. PATIENT TOLERATED WELL. NO SIGNS OF DISTRESS NOTED. Addendum: 03/13/18 at 2213 by Danielle Messer RN IV FERRLECIT HUNG AT THIS TIME DUE TO NO IV ACCESS AT SCHEDULED TIME. IV TO LEFT HAND IS PATENT AND INTACT.
--- NOTE | 2018-03-13 23:30 | NUR ---
RN ROUNDS REPOSITIONED PATIENT TO COMFORT. NO SIGNS OF DISTRESS NOTED. PATIENT TOLERATING VENT SETTINGS. SAFETY AND SEIZURE PRECAUTIONS IN PLACE.
[2018-03-14] MEDS: IPRATROPIUM BROM 0.5 MG/2.5 ML VIAL.NEB (ATROVENT) INH SCH ×4 (00:37→19:29)
[2018-03-14] MEDS: ALBUTEROL SULFATE 0.083% 2.5 MG/3 ML VIAL.NEB INH SCH ×4 (00:37→19:29)
[2018-03-14 01:13] VITALS: BP_SYST 109
--- NOTE | 2018-03-14 01:42 | NUR ---
RN ROUNDS PATIENT RESTING IN BED. NO SIGNS OF DISTRESS NOTED. TOLERATING VENT SETTINGS. SAFETY AND SEIZURE PRECAUTIONS IN PLACE.
[2018-03-14] MEDS: ONDANSETRON HCL 4 MG/2 ML VIAL IVP PRN (03:09)
--- NOTE | 2018-03-14 03:31 | NUR ---
EMESIS PATIENT VOMITED ORANGE EMESIS. GAVE PRN NAUSEA AND VOMITING MEDICATION. PATIENT TOLERATED WELL. NO SIGNS OF DISTRESS NOTED. HYGIENE AND ORAL CARE DONE AT THIS TIME. PATIENT REPOSITIONED FOR COMFORT. MINIMAL AMOUNT OF RESIDUAL NOTED. WILL HOLD FEEDING FOR NOW. WILL CONTINUE TO MONITOR. Addendum: 03/14/18 at 0406 by Danielle Messer RN FEEDING RESUMED AT THIS TIME.
--- NOTE | 2018-03-14 05:20 | NUR ---
RN ROUNDS PATIENT RESTING COMFORTABLY IN BED. NO SIGNS OF DISTRESS NOTED. PATIENT TOLERATING CURRENT VENT SETTINGS. SAFETY AND SEIZURE PRECAUTIONS IN PLACE.
[2018-03-14] MEDS: METOCLOPRAMIDE HCL 10 MG TABLET GT SCH ×3 (06:00→17:21)
[2018-03-14] MEDS: FERROUS SULFATE 300 MG/5 ML UDC GT SCH ×3 (06:00→17:21)
[2018-03-14] MEDS: INSULIN REGULAR, HUMAN 100 UNITS/ML, 10 ML VIAL (novoLIN R) SUBCUT PRN ×4 (06:03→21:45)
--- NOTE | 2018-03-14 06:20 | NUR ---
CLOSING NOTES MEDS GIVEN VIA G-TUBE. PATIENT TOLERATED WELL. ACCUCHECK 157. 2 UNITS OF INSULIN GIVEN PER SLIDING SCALE. PATIENT TOLERATED WELL. PATIENT REPOSITIONED FOR COMFORT. PATIENT TOLERATING CURRENT VENT SETTINGS. IV IS PATENT AND INTACT SALINE LOCKED. COLOSTOMY BAG IN PLACE. MANJARREZ CATHETER IN PLACE DRAINING URINE. G-TUBE INTACT. WOUND VAC IN PLACE. ALL NEEDS MET. PRACTICE GUIDELINES MET THROUGHOUT THE SHIFT. WILL ENDORSE CARE TO DAY SHIFT RN.
[2018-03-14 07:09] LABS: CALCIUM 9.1 mg/dL (8.4-11.0); CREATININE 0.96 mg/dL (0.55-1.30); POTASSIUM 4.7 mmol/L (3.5-5.1)
--- NOTE | 2018-03-14 07:25 | NUR ---
OPENING NOTES At initial assessment, patient is sleeping in bed with both eyes closed. Breathing even and unlabored, patient on home ventilator. Gtube in place, receiving Glucerna 1.5 at 45ml/hr. Colostomy bag in place. F/C in place, noted with yellow urine. IV site on the left hand 22 G patent and intact, saline locked. Aspiration, seizure, fall, contact, and safety precautions in place, bed low and locked, alarm on, side rails up x3, seizure pads present, call light within reach, will continue to monitor.
[2018-03-14 07:43] LABS: BASOPHILS % (AUTO) 0.2 % (0.0-2.0); EOSINOPHILS # (AUTO) 0.1 K/uL (0.0-0.4); EOSINOPHILS % (AUTO) 0.4 % (0.0-4.0); HEMATOCRIT 25.2 % (36-48); LYMPHOCYTES # (AUTO) 0.9 K/uL (1.0-5.5); LYMPHOCYTES % (AUTO) 5.7 % (20.5-51.5); MEAN CORPUSCULAR HEMOGLOBIN 24 pg (27-31); MEAN CORPUSCULAR HGB CONC 32 % (32-36); MEAN CORPUSCULAR VOLUME 75 fL (79.0-98.0); MONOCYTES # (AUTO) 0.5 K/uL (0.0-1.0); MONOCYTES % (AUTO) 3.4 % (1.7-9.3); NEUTROPHILS # (AUTO) 14.2 K/uL (1.8-7.7); NEUTROPHILS % (AUTO) 90.3 % (40.0-70.0); PLATELET COUNT (AUTO) 268 K/uL (130-430); RED BLOOD CELL COUNT(AUTO) 3.34 MIL/uL (4.2-6.2); RED CELL DISTRIBUTION WIDTH 19.6 % (9.0-15.0)
[2018-03-14 07:48] LABS: WHITE BLOOD COUNT (AUTO) 15.7 K/uL (4.8-10.8)
[2018-03-14 08:00] VITALS: BP_SYST 112
[2018-03-14] MEDS: BALSAM PERU/CASTOR OIL 60 GM OINT...G. TP SCH (09:00)
[2018-03-14] MEDS: LevETIRAcetam 500 MG/5 ML UDC ORAL LIQUID GT SCH ×2 (09:20→21:40)
[2018-03-14] MEDS: LACTOBACILLUS RHAMNOSUS GG 1 CAP CAPSULE GT SCH ×2 (09:21→21:37)
[2018-03-14] MEDS: LACTULOSE 20 GM/30 ML UDC GT SCH ×2 (09:21→21:36)
[2018-03-14] MEDS: SODIUM CHLORIDE 500 MG TABLET GT SCH ×3 (09:22→21:37)
[2018-03-14] MEDS: ASCORBIC ACID 500 MG TABLET GT SCH ×2 (09:22→21:36)
[2018-03-14] MEDS: CHOLECALCIFEROL (VITAMIN D3) 2,000 UNIT TABLET GT SCH (09:22)
[2018-03-14] MEDS: NAPH,MB-DB/K PH,MBDB 250 MG TAB GT SCH ×2 (09:22→21:40)
[2018-03-14] MEDS: MULTIVIT-MINERALS/FERROUS GLUC 15 ML UDC GT SCH (09:22)
[2018-03-14] MEDS: CALCIUM CARBONATE/VITAMIN D3 1 TAB TABLET GT SCH ×2 (09:22→21:37)
[2018-03-14] MEDS: POTASSIUM CHLORIDE 20 MEQ/PKT PACKET GT SCH ×2 (09:22→21:36)
[2018-03-14] MEDS: PANTOPRAZOLE GRANULES PACKET 40 MG GT SCH ×2 (09:22→21:37)
--- NOTE | 2018-03-14 09:40 | NUR ---
DR. OAKLEY AT THE BEDSIDE Dr. Oakley seen and examined the patient at the bedside.
[2018-03-14 11:50] VITALS: BP_SYST 113
--- NOTE | 2018-03-14 12:05 | NUR ---
ROUNDS/DR. BYRNES AT THE BEDSIDE Patient is resting with eyes closed, no s/s of acute distress/discomfort. No respiratory distress noted, tolerating current vent settings. Gtube feeding infusing as ordered and tolerating well. Wound vac running. Oral care provided and patient tolerated well. Dr. Byrnes seen and examined the patient at the bedside. Contact, safety, fall, aspiration, and seizure precautions observed, call light within reach, will continue to monitor.
[2018-03-14 12:16] VITALS: BP_SYST 113
--- NOTE | 2018-03-14 13:04 | NUR ---
SPOKE WITH DR. CELE Baig paged and spoke with MD regarding UA results. Dr. Baig gave new order of Rocephin 1 GM IVPB daily, order read back and verified. Order to be entered by KRISTINE.
[2018-03-14] MEDS ORDERED: cefTRIAXone 1 GM in D5W 50 ML IV SCH (13:15)
--- NOTE | 2018-03-14 14:00 | NUR ---
OFF OF UNIT Patient is transported to radiology for CT chest via bed. Patient is in stable condition.
--- NOTE | 2018-03-14 14:20 | NUR ---
BACK ON UNIT Patient is back in the room, awake, in stable condition. No respiratory distress. Safety, seizure, contact, and fall precautions in place.
--- NOTE | 2018-03-14 14:23 | NUR ---
Discharge Planning: [facility] has faxed gtube feeding orders to [facility] ([phone] [phone]). Addendum: 03/14/18 at 1441 by Sudha Keith LCSW MORGAN spoke with [facility]; they confirmed that pt is on service with them for gtube feeing. [facility] when she returns from lunch.
--- NOTE | 2018-03-14 14:34 | NUR ---
DCP spoke to Maxwell at [facility] (f [phone] p [phone]) sent Maxwell the order for GT Pump and formula. Maxwell called DCP and stated insurance is gave them a RV ID ([phone]) DCP left message no return call. DCP asked PUBLIC IMPROVEMENT INSPECTOR for help, call daught and see who the family used in past. DCP spoke to Maci patient daughter, Michelle [facility] (f [phone] p [phone]). PUBLIC IMPROVEMENT INSPECTOR faxed referral.
--- NOTE | 2018-03-14 15:00 | NUR ---
MANJARREZ CATH CHANGED #28 FR Manjarrez catheter with bulb inserted with use of sterile technique. Bulb inflated with 15 cc sterile water. Small amount of urine noted. Bedside drainage bag placed below level of bladder. Patient tolerated procedure well.
--- NOTE | 2018-03-14 15:15 | NUR ---
SUPPLIES AT THE BEDSIDE Supplies: #28 FR Hernandez catheter (x1) and colostomy bags (x2) available at the bedside for family to take home upon discharge.
--- NOTE | 2018-03-14 16:08 | NUR ---
VENTILATOR TRAINING Family at the bedside with RT and [employer] for ventilator training at this time.
[2018-03-14 16:20] VITALS: BP_SYST 121
--- NOTE | 2018-03-14 16:20 | NUR ---
UA SAMPLE SENT TO LAB New UA sample sent to lab. Old urine specimen discarded.
--- NOTE | 2018-03-14 16:31 | NUR ---
SUPPLIES SENT HOME WITH DAUGHTER Supplies: #28 FR Hernandez catheter (X1) and colostomy bags (X2) were taken home by daughter.
--- NOTE | 2018-03-14 16:35 | NUR ---
ROUNDS Patient is resting with eyes closed, no s/s of acute distress/discomfort. Patient is back on hospital vent and tolerating settings well. Wound vac running. GTube feeding running as ordered. Safety, seizure, and contact precautions observed.
[2018-03-14 16:43] LABS: BILIRUBIN,URINE NEGATIVE (NEGATIVE); BLOOD, URINE 3+ (NEGATIVE); CLARITY/URINE CLOUDY (CLEAR); COLOR,URINE YELLOW (YELLOW); GLUCOSE,URINE NEGATIVE (NEGATIVE); KETONES,URINE NEGATIVE (NEGATIVE); LEUKOCYTE ESTERASE ,URINE 2+ (NEGATIVE); NITRITE, URINE POSITIVE (NEGATIVE); PH,URINE 8.5 (5.0-8.0); PROTEIN URINE 2+ (NEGATIVE); UROBILINOGEN,URINE 0.2 (0.2-1.0)
[2018-03-14 16:48] LABS: BACTERIA,URINE MODERATE /HPF (None Seen); WBC,URINE >100 /HPF (0-3)
[2018-03-14] MEDS: SOD FERRIC GLUC COMPLEX/SUC 125 MG in NS 100 ML IV SCH (17:22)
--- NOTE | 2018-03-14 18:31 | NUR ---
CLOSING NOTE Patient is sleeping, no s/s of acute distress. Tolerating current vent settings, no respiratory distress noted. GTube patent and intact. Patient receiving Glucerna 1.2 infusing at 45 ml/hr as ordered and tolerating well. Colostomy patent and intact. F/C in place with visible urine output. Safety, contact, seizure, and fall precautions in place. All needs met and anticipated throughout the shift. Bed low and locked, alarm on, seizure pads present, side rails up x3, call light within reach. Will endorse plan of care.
[2018-03-14 19:20] VITALS: BP_SYST 118
--- NOTE | 2018-03-14 19:20 | NUR ---
Initial Notes Received patient resting in bed with eyes close. Opens eyes to verbal and tactile stimuli . No s/s of any distress noted. Patient is on mech vent set as ordered. IV noted to R a/c g 22 no infiltrate and with good blood return. G tube patent and no kink with 5 ml residual noted. Colostomy bag noted to LLQ with 20cc of yellow liquid stool in the bag. Wound vac is intact. noted All extremities are weak, bed rest. Discussed plan of care with patient and verbalize understanding. Call light in reach, will cont to monitor.
--- NOTE | 2018-03-14 21:20 | NUR ---
Rounds Patient is resting with eyes close at this time, no s/s of any distress noted. Call light in reach, will cont to monitor.
[2018-03-14] MEDS: CEFEPIME 1 GM in D5W 50 ML IV SCH (21:36)
--- NOTE | 2018-03-14 23:13 | NUR ---
Trop down to 0.488 Labs called on trop at 0.488 down from 0.490. Will endorse to incoming nurse. Addendum: 03/14/18 at 2319 by Torres Oquendo RN Correction: notes for other patient
--- NOTE | 2018-03-14 23:20 | NUR ---
Rounds Patient is awake watching tv at this time. No c/o pain and no s/s of any distress noted. Call light in reach, will cont to monitor.
[2018-03-15] VITALS (7 sets, daily range): BP systolic 117–155
[2018-03-15] MEDS: IPRATROPIUM BROM 0.5 MG/2.5 ML VIAL.NEB (ATROVENT) INH SCH ×4 (00:29→19:37)
[2018-03-15] MEDS: ALBUTEROL SULFATE 0.083% 2.5 MG/3 ML VIAL.NEB INH SCH ×4 (00:29→19:37)
--- NOTE | 2018-03-15 01:20 | NUR ---
Rounds Patient is resting awake in bed at this time. No s/s of any distress and no c/o pain noted. Call light in reach, will cont to monitor.
[2018-03-15] MEDS: METOCLOPRAMIDE HCL 10 MG TABLET GT SCH ×5 (01:23→23:04)
--- NOTE | 2018-03-15 03:40 | NUR ---
Syncopal Episode Patient had a syncopal episode while sitting in the bedpan. Patient was talking then suddenly hard to arouse. Chest rub was apply and patient slowly woke up. O2 2L applied via n/c. HR 36 during syncopal episode. Will cont to monitor. Will notify MD miya Potts nurse. Addendum: 03/15/18 at 0558 by Torres Oquendo RN Correction note for different patient.
--- NOTE | 2018-03-15 05:59 | NUR ---
Wound vac dressing Change wound vac dressing. Cleanse with n/s pat dry, apply Venelex then apply wound vac.Wound bed is dry with minimal bleeding. Picture taken.
[2018-03-15] MEDS: FERROUS SULFATE 300 MG/5 ML UDC GT SCH ×3 (06:14→17:00)
[2018-03-15] MEDS: INSULIN REGULAR, HUMAN 100 UNITS/ML, 10 ML VIAL (novoLIN R) SUBCUT PRN ×2 (06:17→20:29)
[2018-03-15 07:26] LABS: TOTAL IRON BIND. CAPACITY 114 ug/dL (250-450)
--- NOTE | 2018-03-15 07:28 | NUR ---
Final Notes Pt is resting in bed with eyes closed. All needs met and anticipated during the shift. Safety precautions maintained and call light with pt. Will endorse to day shift nurse.
--- NOTE | 2018-03-15 07:40 | NUR ---
opening note pt in bed eyes closed, moving right hand, no distress noted. gtube in place, trach to vent noted. bed alarm on with bed in lowest position.
[2018-03-15] MEDS: MULTIVIT-MINERALS/FERROUS GLUC 15 ML UDC GT SCH (08:48)
[2018-03-15] MEDS: LACTULOSE 20 GM/30 ML UDC GT SCH ×3 (08:49→22:45)
[2018-03-15] MEDS: SODIUM CHLORIDE 500 MG TABLET GT SCH ×4 (08:49→22:47)
[2018-03-15] MEDS: LevETIRAcetam 500 MG/5 ML UDC ORAL LIQUID GT SCH ×3 (08:49→22:46)
[2018-03-15] MEDS: NAPH,MB-DB/K PH,MBDB 250 MG TAB GT SCH ×3 (08:50→22:46)
[2018-03-15] MEDS: POTASSIUM CHLORIDE 20 MEQ/PKT PACKET GT SCH ×3 (08:50→22:45)
[2018-03-15] MEDS: CHOLECALCIFEROL (VITAMIN D3) 2,000 UNIT TABLET GT SCH (08:50)
[2018-03-15] MEDS: PANTOPRAZOLE GRANULES PACKET 40 MG GT SCH ×3 (08:50→22:46)
[2018-03-15] MEDS: LACTOBACILLUS RHAMNOSUS GG 1 CAP CAPSULE GT SCH ×3 (08:50→22:45)
[2018-03-15] MEDS: ASCORBIC ACID 500 MG TABLET GT SCH ×3 (08:50→22:47)
[2018-03-15] MEDS: CALCIUM CARBONATE/VITAMIN D3 1 TAB TABLET GT SCH ×3 (08:51→22:46)
[2018-03-15] MEDS ORDERED: EPOETIN ALFA 20,000 UNITS/ML VIAL SUBCUT SCH (09:00)
[2018-03-15] MEDS: BALSAM PERU/CASTOR OIL 60 GM OINT...G. TP SCH (09:00)
[2018-03-15] MEDS: CEFEPIME 1 GM in D5W 50 ML IV SCH ×2 (09:19→22:47)
--- NOTE | 2018-03-15 09:47 | NUR ---
CONSULTATION called for Dr Kline for consult of G-Tube Clogged, Needs Re-insertion order by Dr Valentine spoke with Mary
--- NOTE | 2018-03-15 09:56 | NUR ---
MORNING MEDS NOT GIVEN, G-TUBE UNABLE TO FLUSH AND IS CLOGGED DESPITE EFFORTS TO UNCLOG. AWAITING GI FOR REINSERTION.
--- NOTE | 2018-03-15 10:39 | NUR ---
spoke with dr katharine dillon stated pt is okay for d/c home with home health for iv antibiotics.
--- NOTE | 2018-03-15 10:40 | NUR ---
spoke with dr arnie dillon stated he will be by to change gtube at bedside.
--- NOTE | 2018-03-15 11:36 | NUR ---
Discharge Planning: DCP left a copy of Prescription for GT Pump and Formula from [facility] (f [phone] p [phone]) a signature is required. Charge nurse and pt nurse aware. Addendum: 03/15/18 at 1246 by Drea Dangelo DP DCP arrange transportation with [facility] ([phone]) will call CCT with RT Auth#[id number]. Addendum: 03/15/18 at 1626 by Drea Dangelo DP DCP called [facility] ([phone]) CCT with RT Auth#[id number] arranged 12:00pm P/U. DCP called [facility] (f [phone] p [phone]) spoke to Jojo patients discharge date 03/16/18, before GT pump could be delivered a DC date had to be confirmed.
[2018-03-15 11:52] LABS: INR 1.1 (0.8-1.2); PROTHROMBIN TIME 11.3 SECS (9.5-12.5)
--- NOTE | 2018-03-15 12:25 | NUR ---
blood sugar 193- no coverage given due to pt g-tube feeding not running at this time. will continue to monitor.
--- NOTE | 2018-03-15 13:54 | NUR ---
DC Planning: Reviewing for home discharge by tomorrow am. >> Confirmed with pt's dtr/Maci: she is agreeable with the discharge plan after PEG and PICC placements completed. Both procedures are expected to be done this pm. >> Dr Baig cleared the pt. for discharge. >> Dr. Morales cleared the pt. for discharge with IV Cefepime x 7 days. >> [facility] J[facility]ICA/[facility]aby confirmed visiting nurse to see the pt tomorrow for wound care/wound vac reattachment/set up. Addendum: 03/15/18 at 1524 by Rosy Winslow RN Reviewing for home discharge continue: >> Per Lisette/[facility], will be able to send RT staff to be at [facility] by 11 am tomorrow. The RT will ride in ambulance with patient and will set up the vent at home. >> Received call from Joseph/ reported that he will be the RT following the pt. to home. His cell phone number is [phone], fax# [phone]. CM to fax dr. Valentine progress note/dc summary stating the need for home ventilator. >> CM faxed IV abx order to [facility] fax# [phone] , tel .
[2018-03-15 14:25] LABS: BASOPHILS % (AUTO) 0.3 % (0.0-2.0); CREATININE 1.07 mg/dL (0.55-1.30); EOSINOPHILS # (AUTO) 0.1 K/uL (0.0-0.4); EOSINOPHILS % (AUTO) 0.6 % (0.0-4.0); HEMATOCRIT 24.8 % (36-48); HEMOGLOBIN 7.6 g/dL (12.0-16.0); LYMPHOCYTES # (AUTO) 1.1 K/uL (1.0-5.5); LYMPHOCYTES % (AUTO) 7.4 % (20.5-51.5); MEAN CORPUSCULAR HEMOGLOBIN 23 pg (27-31); MEAN CORPUSCULAR HGB CONC 31 % (32-36); MEAN CORPUSCULAR VOLUME 76 fL (79.0-98.0); MONOCYTES # (AUTO) 0.8 K/uL (0.0-1.0); MONOCYTES % (AUTO) 5.4 % (1.7-9.3); NEUTROPHILS # (AUTO) 12.4 K/uL (1.8-7.7); NEUTROPHILS % (AUTO) 86.3 % (40.0-70.0); PLATELET COUNT (AUTO) 184 K/uL (130-430); POTASSIUM 4.9 mmol/L (3.5-5.1); RED BLOOD CELL COUNT(AUTO) 3.26 MIL/uL (4.2-6.2); RED CELL DISTRIBUTION WIDTH 19.2 % (9.0-15.0); WHITE BLOOD COUNT (AUTO) 14.4 K/uL (4.8-10.8)
--- NOTE | 2018-03-15 14:54 | NUR ---
pt resting, no distress, safety maintained.
--- NOTE | 2018-03-15 16:30 | NUR ---
DC Planning: late entry: Confirmed by: Diane/[facility] infusion /DME company#[phone],IV abx and GT pump to be delivered on 03/16 by 2 pm. :Joseph/RT at [facility] to have staff come to [facility] at 11 am to ride with pt in the ambulance during transport the pt. home.
[2018-03-15] MEDS: SOD FERRIC GLUC COMPLEX/SUC 125 MG in NS 100 ML IV SCH (17:15)
--- NOTE | 2018-03-15 17:23 | NUR ---
pt in bed eyes open, moving right arm scratching head, no distress noted. safety maintained. Addendum: 03/15/18 at 1725 by Terrie Obrien RN blood sugar checked- no coverage given- awaiting tonny dillon for gtube reinsertion
--- NOTE | 2018-03-15 18:52 | NUR ---
closing note all needs met through shift, safety maintained, will endorse care to manufacturing supervisor 2nd shift.
--- NOTE | 2018-03-15 19:00 | NUR ---
change of shift.pt.presents isolation status;mdro/crown blocker:sputum.e.coli;esbl:urine.pt.present picc line;placement;03/15/18.rt.bicept. pt.presents g-tube;clotted:will attempt to flush.g-tube feed on-hold;i am apprised ;gi,to replace the g-tuber;. vent settings assessed;tv;500,fio-2%=25%a/c;14,peep:5.pt.presents colostomy;llq-abdomen,wound-vac;wound:sacrum.ortiz catheter.call light/telephone w/in the reach of the pt.
--- NOTE | 2018-03-15 20:00 | NUR ---
pt.assessed.v/s assessed;values w/in normal limits;flacc method;pain mgx;pt.absent facial grimaces/body posturing.vent settings assessed;pt.tolerating vent settings.i have attended to the oral/trach care.oral/trach suction.i have assessed the g-tube;i have attempted tot flush g-tube:to no avail;to atempt in future.g-tube feed on hold.i have assessed the colostomy ;patent;fecal matter present.i have assessed the ortiz catheter;patent;urine content present.i am to f/u xray:picc line placement.pt.assessed for cleanliness.pt.repositioned.call light/telephone placed w/in the reach of the pt.i have assessed the blood glucose;value:158mg/dl.
--- NOTE | 2018-03-15 21:00 | NUR ---
2100p i have attempted to administer the medications.i have attempted to flus the g-tube;to no avail.to attempt in future. i have held the administration;2-units;regular insulin peer the sliding scale.2/t g-tube feed;on-hold.i attempt to locate the x-ray repot to confirm pic cl;one placement.i was apprised per the chief transfer and pumphouse operator;freida that the picc line nsg will write a note top confirm placement/utilizing of the picc line;per the scope of the picc line nsg;no requirement to telephone attending md of the confirmation of the picc line placement.
--- NOTE | 2018-03-15 21:59 | NUR ---
Paged Dr. Olivier, (Dr. Hurley computational scientist) dialed [phone], s/w Estephanie
--- NOTE | 2018-03-15 22:08 | NUR ---
Paged Dr. Valentine s/w Dale.
--- NOTE | 2018-03-15 22:15 | NUR ---
paged.:on-call.i have apprised [facility] replace g-tube; recommended to continue attempting to de-clot the g-tube;if successful to continue w/g-tube feed./jv to assess the g-tube in the am:03/16/18. was paged: was paged p/t noting the picc line nsg notes confirming the correct placement of the picc line and consent to proceed w/utilizing the the picc line; was paged;to convey that the g-tube feed was on hold and that no fluids were administering @present.i am awaiting the return call of .
--- NOTE | 2018-03-15 23:00 | NUR ---
g-tube flush;g-tube operable.i have administered the 2100p medications@this hour.i have changed the g-tube feed tubing. g-tube feed resumed@45ml/hr.
--- NOTE | 2018-03-16 | NUR ---
pt.assessed.v/s assessed;values w/in normal limits..vent settings assessed;PT./TOLERATING THE SETTINGS.i have attended to the oral/trach care.oral/trach suction.i have assessed the g-tube;patent;g-tube feed infusing.i have administered k13-rubsx:200ml. i have assessed the colostomy;patent;fecal matter present.i have assessed the pic martínez;patent;iv fluid infusing.i have assessed the ortiz catheter;patent;urine content present.pt.assessed for cleanliness.pt.repositioned.call light/telephone placed w/in the reach of the pt.
[2018-03-16 00:40] VITALS: BP_SYST 127
[2018-03-16] MEDS: IPRATROPIUM BROM 0.5 MG/2.5 ML VIAL.NEB (ATROVENT) INH SCH ×3 (01:53→13:23)
[2018-03-16] MEDS: ALBUTEROL SULFATE 0.083% 2.5 MG/3 ML VIAL.NEB INH SCH ×2 (01:53→07:53)
--- NOTE | 2018-03-16 02:00 | NUR ---
pt.assessed.vent settings assessed;pt.tolerating the settings.i have attended to the oral/trach care.oral/trach suction.i have assessed the g-tube;patent;g-tube feed infusing.i have assessed the colostomy;patent;fecal matter present.i have assessed the picc line;patent;iv fluids infusing.i have ass the ortiz catheter;patent;urine content present.pt.assessed for cleanliness.pt. repositioned. call light/telephone w/in the reach of the pt.
--- NOTE | 2018-03-16 04:00 | NUR ---
pt.assessed.vent settings assessed pt.tolerating the settings.i have attended to the oral/trach care.oral/trach suction.i have assessed the colostomy;patent;fecal matter present.i have assessed the g-tube;patent;g-tube feed infusing.i have administered the m74-etwye;200ml.i have assessed the picc line;patent;iv fluids infusing.i have assessed the ortiz catheter;patent;urine content present.i have assessed the wound-vac;patent;wound drainage presents.pt.assessed for cleanliness;cleaned;chg bath attended:03/18/ central line.pt.repositioned.scd's stockings changed.i have attended to the g-tube;site;cleaned.i have changed the g-tube dsg.call light/telephone place w/in the reach of the pt.
--- NOTE | 2018-03-16 06:00 | NUR ---
pt.assessed.pt.assessed for cleanliness;pt./cleaned.i have assessed the vent settings;pt tolerating the vent settings.i have assessed the g-tube;patent;g-tube feed infusing.no drainage noted a@periphery of the g-tube.i have assessed the residuals;10ml;g-tube feed residuals.i have assessed the colostomy;patent;fecal matter present.i have assessed the wound-vac;patent;wound drainage present. i have assessed the picc line;patent;iv fluids infusing.i have assessed the ortiz catheter;patent;urine content present.i have attended to the oral/trach care.oral/trach suction.pt.repositioned.call light/telephone placed w/in the reach of the pt.
[2018-03-16] MEDS: INSULIN REGULAR, HUMAN 100 UNITS/ML, 10 ML VIAL (novoLIN R) SUBCUT PRN ×3 (06:13→16:50)
[2018-03-16] MEDS: FERROUS SULFATE 300 MG/5 ML UDC GT SCH ×3 (06:17→16:45)
[2018-03-16] MEDS: METOCLOPRAMIDE HCL 10 MG TABLET GT SCH ×3 (06:17→16:53)
--- NOTE | 2018-03-16 07:13 | NUR ---
OPENING NOTE: MORNING REPORT WAS TAKEN AT BEDSIDE FROM TRAVERTINE INSTALLER NURSE. PATIENT IS AWAKE WITH NO SIGNS OF DISTRESS. PATIENT ON VENT. SETTINGS ARE AC 14, TV 500 FIO2 25, PEEP 5. G TUBE FEEDING INFUSING. MANJARREZ HANGING TO GRAVITY. NIGHT NURSE SAID IT HAS BEEN LEAKING SINCE ADMISSION. DR AWARE. PICC DRESSING DRY AND INTACT. WOUND VAC CONNECTED. BED ALARM IS ON AND CALL LIGHT IS IN REACH. PADDED SIDE RAILS ARE UP AND BED IN LOWEST POSITION. WILL CONTINUE TO MONITOR.
[2018-03-16 07:33] LABS: BASOPHILS % (AUTO) 0.4 % (0.0-2.0); EOSINOPHILS # (AUTO) 0.2 K/uL (0.0-0.4); EOSINOPHILS % (AUTO) 1.4 % (0.0-4.0); HEMATOCRIT 24.3 % (36-48); HEMOGLOBIN 7.5 g/dL (12.0-16.0); LYMPHOCYTES # (AUTO) 0.7 K/uL (1.0-5.5); LYMPHOCYTES % (AUTO) 6.6 % (20.5-51.5); MEAN CORPUSCULAR HEMOGLOBIN 23 pg (27-31); MEAN CORPUSCULAR HGB CONC 31 % (32-36); MEAN CORPUSCULAR VOLUME 75 fL (79.0-98.0); MONOCYTES # (AUTO) 0.6 K/uL (0.0-1.0); MONOCYTES % (AUTO) 5.1 % (1.7-9.3); NEUTROPHILS # (AUTO) 9.7 K/uL (1.8-7.7); NEUTROPHILS % (AUTO) 86.5 % (40.0-70.0); PLATELET COUNT (AUTO) 189 K/uL (130-430); RED BLOOD CELL COUNT(AUTO) 3.24 MIL/uL (4.2-6.2); WHITE BLOOD COUNT (AUTO) 11.2 K/uL (4.8-10.8)
[2018-03-16 07:55] LABS: CALCIUM 9.3 mg/dL (8.4-11.0); CREATININE 1.01 mg/dL (0.55-1.30)
[2018-03-16 08:13] LABS: RED CELL DISTRIBUTION WIDTH 18.8 % (9.0-15.0)
[2018-03-16 08:45] VITALS: BP_SYST 125
[2018-03-16] MEDS: MULTIVIT-MINERALS/FERROUS GLUC 15 ML UDC GT SCH (08:49)
[2018-03-16] MEDS: CEFEPIME 1 GM in D5W 50 ML IV SCH (08:49)
[2018-03-16] MEDS: LACTULOSE 20 GM/30 ML UDC GT SCH (08:50)
[2018-03-16] MEDS: POTASSIUM CHLORIDE 20 MEQ/PKT PACKET GT SCH (08:50)
[2018-03-16] MEDS: LevETIRAcetam 500 MG/5 ML UDC ORAL LIQUID GT SCH (08:50)
[2018-03-16] MEDS: NAPH,MB-DB/K PH,MBDB 250 MG TAB GT SCH (08:50)
[2018-03-16] MEDS: PANTOPRAZOLE GRANULES PACKET 40 MG GT SCH (08:50)
[2018-03-16] MEDS: CHOLECALCIFEROL (VITAMIN D3) 2,000 UNIT TABLET GT SCH (08:51)
[2018-03-16] MEDS: SODIUM CHLORIDE 500 MG TABLET GT SCH ×2 (08:51→15:19)
[2018-03-16] MEDS: ASCORBIC ACID 500 MG TABLET GT SCH (08:51)
[2018-03-16] MEDS: CALCIUM CARBONATE/VITAMIN D3 1 TAB TABLET GT SCH (08:51)
[2018-03-16] MEDS: LACTOBACILLUS RHAMNOSUS GG 1 CAP CAPSULE GT SCH (08:51)
[2018-03-16] MEDS: BALSAM PERU/CASTOR OIL 60 GM OINT...G. TP SCH (09:55)
--- NOTE | 2018-03-16 09:55 | NUR ---
NOTE: PATIENT SUPPOSE TO BE PICKED UP TO GO HOME AT 1100. PATIENT WAS CLEANED UP. PICTURES OF WOUND WERE TAKEN. NEW COLOSTOMY BAG WAS PLACED. PATIENT ON VENT WITH NO SIGNS OF DISTRESS. FEEDING IS INFUSING. MANJARREZ HANGING TO GRAVITY. WILL CONTINUE TO MONITOR.
--- NOTE | 2018-03-16 10:00 | NUR ---
WOUND CARE: WOUND VAC WAS TAKEN OFF PATIENT. WOUND DESCRIPTION IN ASSESSMENT. WET DRESSING WAS APPLIED TOLD FROM WOUND CARE NURSE STEPHANIE.
--- NOTE | 2018-03-16 10:09 | NUR ---
DISCHARGE AMBULANCE: ANGELA FROM AMBULANCE CALLED SAYING HE HAD TO CANCEL AMBULANCE BECAUSE THEY ARE NOT ALLOWED TO TAKE RT TO PRIVATE RESIDENCE. HE CALLED AND LEFT MESSAGE WITH GEETA. SAID TO CALL HIM BACK AT [phone] IF I SEE GEETA.
--- NOTE | 2018-03-16 10:10 | NUR ---
Discharge Planning: DCP was informed by CM ambulance was cancelled, stated can not transfer patient. DCP called [facility] ([phone]) spoke with Fransisco. Fransisco stated ambulance can not take to private residence without a nurse being at the home, also a [facility] RT can not be used for private transfer. ALISON explained to Fransisco, [facility] will have a RT and ventilator, just the ambulance for transportation would be needed. Fransisco check with a superior and this was cleared. Fransisco stated ambulance would arrive at 11:00am. SARWATP relayed information to patients nurse. CM was made aware. Addendum: 03/16/18 at 1134 by Drea Dangelo DP DCP was told patient is to have a blood transfusion, so DCP called Fransisco at [facility] ([phone]) and placed ambulance on Will Call. SARWAT made CM and patients nurse aware.
[2018-03-16 10:50] VITALS: BP_SYST 125; BP_SYST 128
--- NOTE | 2018-03-16 11:16 | NUR ---
DC Planning: The pt.was scheduled to be hot die picker by [facility] ambulance to home at 11 am today. / Serge came in to do the reeval for discharge. The md requested pt to have 1 unit PRBC infusing before the pt. leave due to this am HGB =7.5. >> KIERRA notified Joseph,RT at [facility] # [phone] to postpone the dc time between 3-4 pm. >> Sammy/son-in -law, Erika/Felix and Fransisco/[facility] ambulance made aware. Addendum: 03/16/18 at 1543 by Rosy Winslow RN Recalling transport team: >> RT/[facility]/Joseph ; LVM and recalled X3 tel # [phone] waiting for call back to confirm time. >> [facility] ambulance/CCT, confirmed hot die picker time between 7 -730 pm. ( reactivated the "will call" with Madalyn) >> Nirmalr/Maci will be coming to hospital for the discharge process at 6 pm. >> Felix LOPEZ/Faby made aware of the pt. discharge time and the second dose of IV ABX to be given before pt. leaves.
[2018-03-16 11:29] VITALS: BP_SYST 131
--- NOTE | 2018-03-16 11:58 | NUR ---
NOTE: CHECKED PATIENT'S SUGAR AND WAS 228. INSUILIN GIVEN TO COVER. PATIENT AWAKE IN BED WITH NO SIGNS OF DISTRESS. GAVE PATIENT SCHEDULED MEDICATIONS. CALL LIGHT IS IN REACH. WILL CONTINUE TO MONITOR.
[2018-03-16] MEDS ORDERED: IPRA3AMP9 INH ×2 (12:36→12:37)
[2018-03-16] MEDS ORDERED: ASCO500T20 GT (12:39)
[2018-03-16] MEDS ORDERED: CHOL20004 GT (12:40)
[2018-03-16] MEDS ORDERED: POTA25TA7 GT (12:41)
[2018-03-16] MEDS ORDERED: POTA10CA68 GT (12:45)
[2018-03-16] MEDS ORDERED: POTA20TA83 GT (12:45)
[2018-03-16] MEDS ORDERED: PANT40SU2 GT (12:47)
[2018-03-16] MEDS ORDERED: MULT9LIQ6 GT (12:49)
[2018-03-16] MEDS ORDERED: L.RH1CAP GT (12:50)
[2018-03-16] MEDS ORDERED: METO-290 GT (12:51)
[2018-03-16] MEDS ORDERED: SUCR1TAB78 GT (12:51)
[2018-03-16] MEDS ORDERED: NEUTPHOSP GT (12:52)
[2018-03-16] MEDS ORDERED: INSU100V7 IJ (12:53)
--- NOTE | 2018-03-16 14:15 | NUR ---
TRANSFUSION STARTED: START 1 UNIT OF PRBC UNIT # [id number], GROUP O POSITIVE ORDERED. TRANSFUSING VIA MARIBEL-PICC LINE . T=98.5, NE=72, RR=14, KQ=928/71. WILL CONTINUE MONITOR CLOSELY.
--- NOTE | 2018-03-16 14:33 | NUR ---
PAGED PAGED CAMPOS IRAHETA AT [phone] SPOKE WITH TONE.
--- NOTE | 2018-03-16 14:50 | NUR ---
NOTE: PATIENT HAS BLOOD INFUSING. PATIENT WAS CLEANED AND REPOSITIONED. PATIENT HAS NO SIGNS OF DISTRESS. CALL LIGHT IS IN REACH. WILL CONTINUE TO MONITOR.
--- NOTE | 2018-03-16 14:55 | NUR ---
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 Coli, recurrent UTI, Hx CVA Subjective Information Pt seen resting in bed, +trach to vent, w/ TF infusing as per MD orders. RD spoke w/ pt's primary RN via phone call to verify tolerance of EN support, she stated that pt has been tolerating TF well, about 5-10 ml residuals today. Pt started on 1 unit PRBC infusion this afternoon, and plans for D/C home per MD orders. RN stated that pt has not yet received Marques or Prosource supplements today -- FNS staff to provide for RN to administer. Per EMR, TF Intakes: 517 ml 03/14/18. Residuals: 5 ml 03/16/18. I/O: 0/300 (-300 ml) per 12 hours. Pt continues to benefit from an increase in nutrition support to aid for possible hypermetabolic state. Current Diet Order/Nutrition Support Glucerna 1.5 at 45 ml/hr, Marques BID, Prosource TID, Free Water Flush: 200 ml Q4h via GT x9 days Patient/Significant Other Unable To Verbalize Education Provided Not Indicated Pertinent Medications neutraphos, reglan, zofran, calcium/VIT D, protonix, culturelle, centrum, zinc sulfate, os-shorty, VIT C, ferrous sulfate, SSI, tums, lactulose, KCl packet Pertinent Labs POC BG 200 H, BG 220 H, BUN 43 H, H/H 7.5 L/24.3 L, WBC 11.2 H, ALB 2 L Height (Feet 5 feet Height (Inches) 3.00 inches Weight (Pounds) 152 pounds (01/17/18) BED SCALE WT: 186.5 lb (01/23/18); 168 lb (02/16/18); 177 lb (02/21/18); 176 lb (02/25/18); 167 lb (03/11/18); 167 lb (03/16/18) -- may be inaccurate d/t blankets/pillows Weight (Calculated Kilograms) 68.558064 kilograms Patient Weight 68.946 kg Body Mass Index 26.92 kg/m2 %IBW 133 [place]/Adjusted Body Weight IBW: 115 lb, 52 kg. Adj IBW (obesity): 124 lb, 56 kg Recent Weight Change No Weight Status Overweight Last BM 03/16/18 -- per FARMER AND GRAZIER, pt's colostomy bag was full and replaced today Food Allergies No Usual Diet At Home Unable to assess per EMR Skin Integrity Comment: Jeff scale: 12; per Operating System Programmer note 02/24/18: 1. Sacral-Coccygeal area: Pressure ulcer, present on admission. Wound bed has 50% pink tissue, 40% light yellow tissue, 10% dark colored tissue (not eschar). No odor, scant sanguineous drainage. Dark discolored tissue present on surrounding tissue. Wound measures 6.5 cm 6.0 cm x 4.0 cm. Undermining present from 12-5 o-clock (12 o'clock measured 1.0 cm; 3 o'clock measured 1.8 cm). Periwound is white from 11-1 o'clock. Generalized non-pitting edema and L arm w/ 1+ non-pitting edema Estimated Energy Expenditure (kcals/day) 3238-9148 kcal/day (30-35 kcal/kg Adj IBW for wound healing) Estimated Protein Required (g/day) 67-112 gm/day (1.2-2 gm/kg Adj IBW for wound healing) Estimated Fluid Required (l/day) Per MD (ARF) Problem/Etiology/Signs/Symptoms Inadequate enteral nutrition related to metabolic demands as evidenced by current TF regimen meets 79% of estimated caloric needs and 94% of estimated protein needs. *improving Expected Outcomes/Goals - Monitor tolerance to EN support w/ goal of pt meeting at least 85% of estimated nutritional needs, labs trending WNL, normal GI function, and skin integrity/wt maintenance Dietitian Recommendations * Recommend Glucerna 1.5 at 45 ml/hr, Marques BID, Prosource TID, Free Water Flush: 200 ml Q4h via GT per MD Provides: 1980 kcal/day, 139 gm protein/day, and 2020 ml free water/day Meets: 101% of upper end of estimated caloric needs and 124% of upper end of estimated protein needs Follow Up Moderate Risk: F/U in 3-5 days
[2018-03-16] MEDS ORDERED: COMMUNICATION ORDER XX ONE ×2 (15:15→15:30)
[2018-03-16 15:24] VITALS: BP_SYST 128
--- NOTE | 2018-03-16 15:43 | NUR ---
DC Planning: Recalling transport team: >> RT/[facility]/Joseph ; LVM and recalled X3 tel # [phone] waiting for call back to confirm time. >> [facility] ambulance/CCT, confirmed picking table worker time between 7 -730 pm. ( reactivated the "will call" with Madalyn) >> Dtr/Maci will be coming to hospital for the discharge process at 6 pm. >> [employer] JESSICA/Faby made aware of the pt. discharge time and the second dose of IV ABX to be given before pt. leaves. Addendum: 03/16/18 at 1857 by Rosy Winslow RN >> Final confirmation with Joseph, who will sent RT/[facility] to be at bedside between 730-8 pm to follow the ambulance and set to up the ventilator at the pt's home. >> Wyatt, Director of Respiratory dept will be at the hospital at 730 pm to ride in ambulance with pt. himself or assigning an on duty RT to go with the pt. (with NILSON Goss 's approval ). kierra Dominique director made aware. >> KIERRA met with pt's son/Shakeel at bedside , informed him of the above and timing for picking table worker / ETA between 730-8 pm. once all designated staff arrive. >> EDWARDO Guy/ KRISTINE Rooney made aware.
--- NOTE | 2018-03-16 16:55 | NUR ---
NOTE: PATIENT WAS TURNED AND REPOSITIONED. PATIENT'S SUGAR WAS TAKEN AND WAS 239. INSULIN GIVEN TO COVER. PATIENT'S BLOOD FINISHED INFUSING. ANTIBIOTIC INFUSING. PATIENT AWAKE WITH NO SIGNS OF DISTRESS. WILL CONTINUE TO MONITOR.
[2018-03-16] MEDS ORDERED: CEFEPIME 1 GM in D5W 50 ML IV ONE (17:30)
--- NOTE | 2018-03-16 18:10 | NUR ---
DISCHARGE PAPERWORK: FAMILY AT BEDSIDE. WENT OVER DISCHARGE PAPER WORK WITH DAUGHTER. DAUGHTER VERBALIZED UNDERSTANDING. QUESTIONS WERE ANSWERED. NO FURTHER QUESTIONS. WILL CONTINUE TO MONITOR. Addendum: 03/16/18 at 1828 by Kari Dixon RN PRESCRIPTION GIVEN TO DAUGHTER
--- NOTE | 2018-03-16 19:10 | NUR ---
Opening notes Received report. Patient is resting in bed, eyes open. No signs of distress noted. Patient tolerating current vent settings. PICC line intact, saline locked. Hernandez catheter in place. Tube feeding in place. Bilateral SCDs in place. Colostomy bag in place. Safety and seizure precautions in place.
--- NOTE | 2018-03-16 19:15 | NUR ---
ENDORSED CARE TO NIGHT NURSE ELIE. PATIENT SITTING IN BED WITH NO SIGNS OF DISTRESS. VENT SETTINGS HAVE NOT CHANGED THROUGH OUT SHIFT. IV SALINE LOCKED. MANJARREZ HANGING TO GRAVITY. FEEDING INFUSING. PATIENT WAITING TO BE TRANSFERRED HOME.
--- NOTE | 2018-03-16 20:18 | NUR ---
Discharge note Gave report and patient face sheet to EMT. Patient transferred onto home vent by RT. Patient tolerated well. Patient to be discharged with MARIBEL PICC line, G-tube, Colostomy bag, and Hernandez catheter. Patient transferred onto [facility]. Patient tolerated well. Patient discharged in stable condition. All belongings provided to son.
--- NOTE | 2018-03-17 16:23 | NUR ---
Discharge Follow Up Phone Call NURSERY TEACHER phoned patient's daughter, Maci [phone]. Patient is doing okay. All the machines, people and medications are at the home as planned. The only issue that has come up so far is that the g-tube is leaking. Maci will trouble shoot with the home health nurse to decide what to do. No other questions or concerns at this time.
== END 2018-03-16 20:18 | disposition home health service (06) | DRG 4 ==
LOC: SED 19:27 → STU 22:49 → SIC 01-16 01:30 → STU 02-03 16:00 → SMU 02-26 16:07
PROVIDERS: ADMIT Internal Medicine; ATTEND Internal Medicine
PROC: 0BH17EZ Insertion of Endotracheal Airway into Trachea, Via Natural or Artificial Opening (ICD-10-PCS; 2018-01-15)
PROC: 5A1955Z Respiratory Ventilation, Greater than 96 Consecutive Hours (ICD-10-PCS; principal; 2018-01-16)
PROC: 30233N1 Transfusion of Nonautologous Red Blood Cells into Peripheral Vein, Percutaneous Approach (ICD-10-PCS; 2018-01-16)
PROC: 0B21XEZ Change Endotracheal Airway in Trachea, External Approach (ICD-10-PCS; 2018-01-16)
PROC: 02HV33Z Insertion of Infusion Device into Superior Vena Cava, Percutaneous Approach (ICD-10-PCS; 2018-01-16)
PROC: B548ZZA Ultrasonography of Superior Vena Cava, Guidance (ICD-10-PCS; 2018-01-16)
PROC: 02HV33Z Insertion of Infusion Device into Superior Vena Cava, Percutaneous Approach (ICD-10-PCS; 2018-01-19)
PROC: B548ZZA Ultrasonography of Superior Vena Cava, Guidance (ICD-10-PCS; 2018-01-19)
PROC: 0B110F4 Bypass Trachea to Cutaneous with Tracheostomy Device, Open Approach (ICD-10-PCS; 2018-01-30)
PROC: 0GBJ0ZZ Excision of Thyroid Gland Isthmus, Open Approach (ICD-10-PCS; 2018-01-30)
PROC: 0D20XUZ Change Feeding Device in Upper Intestinal Tract, External Approach (ICD-10-PCS; 2018-02-04)
PROC: 5A1955Z Respiratory Ventilation, Greater than 96 Consecutive Hours (ICD-10-PCS; 2018-02-23)
PROC: 02HV33Z Insertion of Infusion Device into Superior Vena Cava, Percutaneous Approach (ICD-10-PCS; 2018-03-15)
PROC: B548ZZA Ultrasonography of Superior Vena Cava, Guidance (ICD-10-PCS; 2018-03-15)
DX: A41.9 Sepsis, unspecified organism (principal); R65.21 Severe sepsis with septic shock; N17.0 Acute kidney failure with tubular necrosis; J69.0 Pneumonitis due to inhalation of food and vomit; E43 Unspecified severe protein-calorie malnutrition; G93.41 Metabolic encephalopathy; J96.21 Acute and chronic respiratory failure with hypoxia; K94.23 Gastrostomy malfunction; L89.153 Pressure ulcer of sacral region, stage 3; I48.91 Unspecified atrial fibrillation; E83.52 Hypercalcemia; E11.22 Type 2 diabetes mellitus with diabetic chronic kidney disease; E86.0 Dehydration; B96.89 Other specified bacterial agents as the cause of diseases classified elsewhere; E78.5 Hyperlipidemia, unspecified; E87.1 Hypo-osmolality and hyponatremia; E87.2 Acidosis; F32.9 Major depressive disorder, single episode, unspecified; G40.909 Epilepsy, unspecified, not intractable, without status epilepticus; I12.9 Hypertensive chronic kidney disease with stage 1 through stage 4 chronic kidney disease, or unspecified chronic kidney disease; I69.354 Hemiplegia and hemiparesis following cerebral infarction affecting left non-dominant side; J44.9 Chronic obstructive pulmonary disease, unspecified; N18.9 Chronic kidney disease, unspecified; N39.0 Urinary tract infection, site not specified; Z16.24 Resistance to multiple antibiotics; Y83.8 Other surgical procedures as the cause of abnormal reaction of the patient, or of later complication, without mention of misadventure at the time of the procedure; Y73.8 Miscellaneous gastroenterology and urology devices associated with adverse incidents, not elsewhere classified; I25.10 Atherosclerotic heart disease of native coronary artery without angina pectoris; D50.9 Iron deficiency anemia, unspecified; D63.8 Anemia in other chronic diseases classified elsewhere; B96.20 Unspecified Escherichia coli [E. coli] as the cause of diseases classified elsewhere; N31.9 Neuromuscular dysfunction of bladder, unspecified; E83.39 Other disorders of phosphorus metabolism; E87.6 Hypokalemia; D69.6 Thrombocytopenia, unspecified; K94.29 Other complications of gastrostomy; Y82.8 Other medical devices associated with adverse incidents; Y92.89 Other specified places as the place of occurrence of the external cause; Z74.01 Bed confinement status; Z78.9 Other specified health status; Z82.3 Family history of stroke; Z82.49 Family history of ischemic heart disease and other diseases of the circulatory system; Z99.11 Dependence on respirator [ventilator] status; Z68.26 Body mass index [BMI] 26.0-26.9, adult; Z79.899 Other long term (current) drug therapy; Z90.49 Acquired absence of other specified parts of digestive tract; Z22.322 Carrier or suspected carrier of Methicillin resistant Staphylococcus aureus; I69.320 Aphasia following cerebral infarction
CPT/HCPCS: 36415; 36600; 71045; 71270-TC; 74018; 74240-TC; 80048; 80053; 81000-TC; 82140-TC; 82272; 82607; 82728; 82746; 82803-TC; 82962; 83540-TC; 83550-TC; 83605; 83735-TC; 83880; 84100-TC; 84311; 84439; 84443-TC; 84478-TC; 84484; 85007; 85025; 85027; 85044-TC; 85049-TC; 85379; 85384-TC; 85610-TC; 85730-TC; 86738; 86886; 86900; 86901; 86920; 87040-TC; 87070-TC; 87081; 87086; 87186-TC; 87205-TC; 88300; 88304; 93005; 94003; 94640; 94760; 96365; 96368; 96375; 97110-GP; 99291; 99292; A5061; A6550; C1751; C1769; C9113; G0378; J0330; J0456; J0692; J0695; J0696; J0770; J0885; J1170; J1815; J1940; J1956; J2060; J2405; J2543; J2704; J2765; J2916; J3370; J3475; J3490; J7030; J7040; J7050; J7060; J7613; J8597; P9021; Q9964

== ENCOUNTER 2018-05-14 23:33 | Inpatient (IN) | payer OTHER, BC, MEDICARE ==
[~2018-05-14] VITALS: Ht 160 cm; Wt 67.6 kg
[~2018-05-14 23:33] MED LIST changes: -ACET650S22 PO; -ALBU2.5V7 INH; -AMIN30LI25 GT; -ARGI1POW17 GT; -ASCO500S9 GT; +ASCO500T20 GT; -ATRMDI INH; -CALC-1094 GT; -CALC117719 PO; -CAT.1 PO; +CHOL20004 GT; -COLL100 GT; -FER300L GT; -HYDR-4272 GT; +INSU100V7 IJ; +IPRA3AMP9 INH; +L.RH1CAP GT; +METO-290 GT; +NEUTPHOSP GT; -NUT.237L30 PO; +PANT40SU2 GT; -PIPE3.379 IV; +POTA10CA68 GT; -PRO40 GT; -REGL10 PO; -[UNRECOGNIZED DRUG - OTHER]
[2018-05-14 23:45] VITALS: BP_SYST 143
[2018-05-15] VITALS (8 sets, daily range): BP systolic 92–146
[2018-05-15] MEDS ORDERED: NACL 0.9% 1,000 ML IV ONE
[2018-05-15 02:07] LABS: BILIRUBIN,URINE NEGATIVE (NEGATIVE); BLOOD, URINE 3+ (NEGATIVE); CLARITY/URINE HAZY (CLEAR); COLOR,URINE YELLOW (YELLOW); GLUCOSE,URINE TRACE (NEGATIVE); KETONES,URINE NEGATIVE (NEGATIVE); LEUKOCYTE ESTERASE ,URINE 2+ (NEGATIVE); NITRITE, URINE NEGATIVE (NEGATIVE); PROTEIN URINE 2+ (NEGATIVE); UROBILINOGEN,URINE 0.2 (0.2-1.0)
[2018-05-15 02:20] LABS: CREATININE 4.29 mg/dL (0.55-1.30); POTASSIUM 5.7 mmol/L (3.5-5.1)
[2018-05-15 02:23] LABS: ALBUMIN 1.9 g/dL (3.4-4.8); TOTAL BILIRUBIN 0.5 mg/dL (0.0-1.0)
[2018-05-15 02:29] LABS: RED BLOOD CELL COUNT(AUTO) 1.93 MIL/uL (4.2-6.2)
[2018-05-15 02:30] LABS: HEMOGLOBIN 4.2 g/dL (12.0-16.0); MEAN CORPUSCULAR HEMOGLOBIN 22 pg (27-31); MEAN CORPUSCULAR HGB CONC 30 % (32-36); MEAN CORPUSCULAR VOLUME 73 fL (79.0-98.0); PLATELET COUNT (AUTO) 71 K/uL (130-430); RED CELL DISTRIBUTION WIDTH 17.7 % (9.0-15.0)
[2018-05-15] MEDS ORDERED: ASPIRIN 81 MG TAB.CHEW GT ONE (02:45)
[2018-05-15 03:03] LABS: PROTHROMBIN TIME 10.3 SECS (9.5-12.5)
[2018-05-15 03:18] LABS: BACTERIA,URINE MODERATE /HPF (None Seen); RBC,URINE 20-50 /HPF (0-3); WBC,URINE 20-50 /HPF (0-3)
[2018-05-15 03:20] LABS: CALCIUM 10.2 mg/dL (8.4-11.0); CREATININE 4.3 mg/dL (0.55-1.30)
[2018-05-15 03:22] LABS: POTASSIUM 6.1 mmol/L (3.5-5.1)
[2018-05-15] MEDS ORDERED: DEXTROSE 50% JECT 50 ML DISP.SYRIN IVP ONE (03:30)
[2018-05-15] MEDS ORDERED: SODIUM POLYSTYRENE SULFONATE 15 GM/60 ML UDBTL GT ONE (03:30)
[2018-05-15] MEDS ORDERED: INSULIN REGULAR, HUMAN 10 UNITS/0.1 ML INJ IVP ONE (03:30)
[2018-05-15 03:44] LABS: RED BLOOD CELL COUNT(AUTO) 2.19 MIL/uL (4.2-6.2); WHITE BLOOD COUNT (AUTO) 18.2 K/uL (4.8-10.8)
[2018-05-15 03:45] LABS: MEAN CORPUSCULAR HEMOGLOBIN 22 pg (27-31); MEAN CORPUSCULAR HGB CONC 30 % (32-36); MEAN CORPUSCULAR VOLUME 73 fL (79.0-98.0); PLATELET COUNT (AUTO) 116 K/uL (130-430); RED CELL DISTRIBUTION WIDTH 19.6 % (9.0-15.0)
[2018-05-15] MEDS ORDERED: LEVOFLOXACIN 500 MG/D5W 100 ML IV ONE (03:45)
[2018-05-15] MEDS ORDERED: NACL 0.9% 2,000 ML IV ONE (03:45)
[2018-05-15 03:46] LABS: HEMATOCRIT 16.1 % (36-48); HEMOGLOBIN 4.8 g/dL (12.0-16.0)
[2018-05-15] MEDS ORDERED: FORM20VI IH (04:19)
[2018-05-15] MEDS ORDERED: CAT.1 GT (04:19)
[2018-05-15] MEDS ORDERED: OSCD500 GT (04:19)
[2018-05-15] MEDS ORDERED: HYDR-4272 GT (04:19)
[2018-05-15] MEDS ORDERED: GLUC1VIA4 IJ (04:19)
[2018-05-15] MEDS ORDERED: CALC-823 GT (04:19)
[2018-05-15] MEDS ORDERED: FERR220S6 GT (04:19)
[2018-05-15] MEDS ORDERED: COLL100 GT (04:19)
[2018-05-15] MEDS ORDERED: ACET-2634 GT (04:19)
[2018-05-15] MEDS ORDERED: CRAN1CAP2 GT (04:19)
[2018-05-15 04:20] LABS: BAND % (MANUAL) 1 % (0-6); BASOPHILS % (MANUAL) 0 % (0-2); EOSINOPHILS % (MANUAL) 0 % (0-7); LYMPHOCYTES % (MANUAL) 16 % (20-46); MONOCYTES % (MANUAL) 4 % (0-11)
[2018-05-15 04:22] LABS: BAND % (MANUAL) 2 % (0-6)
[2018-05-15 04:23] LABS: BASOPHILS % (MANUAL) 0 % (0-2); EOSINOPHILS % (MANUAL) 0 % (0-7); LYMPHOCYTES % (MANUAL) 12 % (20-46); MONOCYTES % (MANUAL) 5 % (0-11)
[2018-05-15] MEDS: 0.45% NS 500 ML IV SCH ×4 (06:09→18:50)
[2018-05-15] MEDS: INSULIN REGULAR, HUMAN 100 UNITS/ML, 10 ML VIAL (novoLIN R) SUBCUT PRN ×4 (06:27→23:08)
[2018-05-15] MEDS ORDERED: LR 1,000 ML IV.SOLN IV ONE (11:51)
[2018-05-15] MEDS ORDERED: PROPOFOL 200MG/ 20ML VIAL (DIPRIVAN) IV ONE (11:51)
[2018-05-15] MEDS ORDERED: ALBUMIN HUMAN 25% 12.5 GM/50 ML VIAL IV ONE (11:51)
[2018-05-15] MEDS ORDERED: SEVOFLURANE 15 MIN GAS INH ONE (11:51)
[2018-05-15] MEDS ORDERED: fentaNYL CITRATE/PF 100 MCG/2 ML AMP IVP ONE (11:51)
[2018-05-15] MEDS ORDERED: ACETAMINOPHEN 500 MG TABLET GT SCH (17:15)
[2018-05-15] MEDS ORDERED: cloNIDine HCL 0.1 MG TABLET GT SCH (17:15)
[2018-05-15] MEDS ORDERED: NON-FORMULARY MEDICATION (Hydrocodone/Acetaminophen (Norco 5-325 Tablet) 1 EACH) GT SCH (17:15)
[2018-05-15] MEDS: PIPERACILLIN/TAZO 2.25G/DEX-IS 50 ML IV SCH (18:44)
[2018-05-15 20:22] LABS: CALCIUM 8.4 mg/dL (8.4-11.0); CREATININE 3.79 mg/dL (0.55-1.30); POTASSIUM 4.4 mmol/L (3.5-5.1)
[2018-05-15 20:29] LABS: TOTAL IRON BIND. CAPACITY 107 ug/dL (250-450)
[2018-05-15 20:31] LABS: RED BLOOD CELL COUNT(AUTO) 2.22 MIL/uL (4.2-6.2); WHITE BLOOD COUNT (AUTO) 11.4 K/uL (4.8-10.8)
[2018-05-15 20:33] LABS: HEMATOCRIT 17.5 % (36-48); HEMOGLOBIN 5.5 g/dL (12.0-16.0)
[2018-05-15 20:34] LABS: MEAN CORPUSCULAR HEMOGLOBIN 25 pg (27-31); MEAN CORPUSCULAR HGB CONC 31 % (32-36); MEAN CORPUSCULAR VOLUME 79 fL (79.0-98.0); RED CELL DISTRIBUTION WIDTH 22.8 % (9.0-15.0)
[2018-05-15 20:35] LABS: BASOPHILS % (AUTO) 0.4 % (0.0-2.0); EOSINOPHILS # (AUTO) 0.1 K/uL (0.0-0.4); LYMPHOCYTES # (AUTO) 1.6 K/uL (1.0-5.5); LYMPHOCYTES % (AUTO) 15.1 % (20.5-51.5); MONOCYTES # (AUTO) 0.4 K/uL (0.0-1.0); NEUTROPHILS # (AUTO) 8.5 K/uL (1.8-7.7); NEUTROPHILS % (AUTO) 79.5 % (40.0-70.0)
[2018-05-15 20:46] LABS: PLATELET COUNT (AUTO) 61 K/uL (130-430)
[2018-05-15] MEDS: LACTULOSE 20 GM/30 ML UDC GT SCH (22:26)
[2018-05-15] MEDS: CALCIUM CARBONATE/VITAMIN D3 1 TAB TABLET GT SCH (22:27)
[2018-05-15] MEDS: LevETIRAcetam 500 MG/5 ML UDC ORAL LIQUID GT SCH (22:28)
[2018-05-16 00:30] VITALS: BP_SYST 99
[2018-05-16] MEDS: 0.45% NS 500 ML IV SCH ×2 (00:45→05:20)
[2018-05-16] MEDS: PIPERACILLIN/TAZO 2.25G/DEX-IS 50 ML IV SCH ×3 (05:19→17:35)
[2018-05-16] MEDS: INSULIN REGULAR, HUMAN 100 UNITS/ML, 10 ML VIAL (novoLIN R) SUBCUT PRN ×3 (05:23→17:36)
[2018-05-16 08:00] VITALS: BP_SYST 106
[2018-05-16 08:39] LABS: CALCIUM 8.1 mg/dL (8.4-11.0); CREATININE 3.52 mg/dL (0.55-1.30); POTASSIUM 4.1 mmol/L (3.5-5.1)
[2018-05-16 08:45] LABS: ALBUMIN 1.5 g/dL (3.4-4.8); TOTAL BILIRUBIN 0.3 mg/dL (0.0-1.0)
[2018-05-16] MEDS: CHOLECALCIFEROL (VITAMIN D3) 2,000 UNIT TABLET GT SCH (10:06)
[2018-05-16] MEDS: LevETIRAcetam 500 MG/5 ML UDC ORAL LIQUID GT SCH ×2 (10:06→22:32)
[2018-05-16] MEDS: ASCORBIC ACID 500 MG TABLET GT SCH (10:06)
[2018-05-16] MEDS: LACTULOSE 20 GM/30 ML UDC GT SCH ×2 (10:06→22:32)
[2018-05-16] MEDS: CALCIUM CARBONATE/VITAMIN D3 1 TAB TABLET GT SCH ×2 (10:06→22:33)
[2018-05-16] MEDS: BALSAM PERU/CASTOR OIL 60 GM OINT...G. TP SCH (10:06)
[2018-05-16] MEDS ORDERED: 0.45% NACL 1,000 ML IV SCH ×2 (10:15→12:00)
[2018-05-16 11:05] LABS: HEMATOCRIT 25.4 % (36-48); HEMOGLOBIN 8.3 g/dL (12.0-16.0); MEAN CORPUSCULAR HEMOGLOBIN 26 pg (27-31); MEAN CORPUSCULAR HGB CONC 33 % (32-36); MEAN CORPUSCULAR VOLUME 79 fL (79.0-98.0); RED CELL DISTRIBUTION WIDTH 19.9 % (9.0-15.0); WHITE BLOOD COUNT (AUTO) 11.1 K/uL (4.8-10.8)
[2018-05-16 11:06] LABS: BASOPHILS # (AUTO) 0.1 K/uL (0.0-0.2); BASOPHILS % (AUTO) 0.5 % (0.0-2.0); EOSINOPHILS # (AUTO) 0.1 K/uL (0.0-0.4); EOSINOPHILS % (AUTO) 1.2 % (0.0-4.0); LYMPHOCYTES # (AUTO) 1.6 K/uL (1.0-5.5); LYMPHOCYTES % (AUTO) 14.4 % (20.5-51.5); MONOCYTES # (AUTO) 0.7 K/uL (0.0-1.0); MONOCYTES % (AUTO) 5.9 % (1.7-9.3); NEUTROPHILS # (AUTO) 8.7 K/uL (1.8-7.7)
[2018-05-16 11:32] VITALS: BP_SYST 93
[2018-05-16 13:54] LABS: PLATELET COUNT (AUTO) 82 K/uL (130-430)
[2018-05-16 15:33] VITALS: BP_SYST 120
[2018-05-16 15:48] VITALS: BP_SYST 97
[2018-05-16] MEDS: D5W 1,000 ML IV SCH (17:34)
[2018-05-17] MEDS: INSULIN REGULAR, HUMAN 100 UNITS/ML, 10 ML VIAL (novoLIN R) SUBCUT PRN ×4 (00:01→17:55)
[2018-05-17 00:40] VITALS: BP_SYST 97
[2018-05-17] MEDS: PIPERACILLIN/TAZO 2.25G/DEX-IS 50 ML IV SCH ×3 (02:52→17:46)
[2018-05-17] MEDS: D5W 1,000 ML IV SCH ×3 (02:52→15:33)
[2018-05-17 07:48] LABS: CALCIUM 7.6 mg/dL (8.4-11.0); CREATININE 3.02 mg/dL (0.55-1.30); POTASSIUM 3.7 mmol/L (3.5-5.1)
[2018-05-17 07:59] LABS: ALBUMIN 1.4 g/dL (3.4-4.8); TOTAL BILIRUBIN 0.4 mg/dL (0.0-1.0)
[2018-05-17 08:00] VITALS: BP_SYST 114
[2018-05-17 08:54] LABS: HEMATOCRIT 26.3 % (36-48); HEMOGLOBIN 8.5 g/dL (12.0-16.0); RED BLOOD CELL COUNT(AUTO) 3.32 MIL/uL (4.2-6.2); WHITE BLOOD COUNT (AUTO) 10.8 K/uL (4.8-10.8)
[2018-05-17 08:55] LABS: BASOPHILS % (AUTO) 0.2 % (0.0-2.0); EOSINOPHILS # (AUTO) 0.1 K/uL (0.0-0.4); EOSINOPHILS % (AUTO) 1.2 % (0.0-4.0); LYMPHOCYTES # (AUTO) 1.8 K/uL (1.0-5.5); LYMPHOCYTES % (AUTO) 16.5 % (20.5-51.5); MEAN CORPUSCULAR HEMOGLOBIN 25 pg (27-31); MEAN CORPUSCULAR HGB CONC 32 % (32-36); MEAN CORPUSCULAR VOLUME 79 fL (79.0-98.0); MONOCYTES # (AUTO) 0.6 K/uL (0.0-1.0); MONOCYTES % (AUTO) 5.2 % (1.7-9.3); NEUTROPHILS # (AUTO) 8.3 K/uL (1.8-7.7); NEUTROPHILS % (AUTO) 76.9 % (40.0-70.0); PLATELET COUNT (AUTO) 94 K/uL (130-430); RED CELL DISTRIBUTION WIDTH 20.6 % (9.0-15.0)
[2018-05-17] MEDS: LACTULOSE 20 GM/30 ML UDC GT SCH ×2 (10:32→21:00)
[2018-05-17] MEDS: ASCORBIC ACID 500 MG TABLET GT SCH (10:32)
[2018-05-17] MEDS: CALCIUM CARBONATE/VITAMIN D3 1 TAB TABLET GT SCH ×2 (10:33→21:12)
[2018-05-17] MEDS: CHOLECALCIFEROL (VITAMIN D3) 2,000 UNIT TABLET GT SCH (10:33)
[2018-05-17] MEDS: LevETIRAcetam 500 MG/5 ML UDC ORAL LIQUID GT SCH ×2 (10:36→21:11)
[2018-05-17 12:24] VITALS: BP_SYST 98
[2018-05-17] MEDS ORDERED: MULTIVIT-MINERALS/FERROUS GLUC 15 ML UDC GT ONE (15:15)
[2018-05-17] MEDS: BALSAM PERU/CASTOR OIL 60 GM OINT...G. TP SCH (15:30)
[2018-05-17 16:02] VITALS: BP_SYST 126
[2018-05-17] MEDS: EPOETIN ALFA 4,000 UNITS/ML VIAL SUBCUT SCH (17:46)
[2018-05-17 20:15] VITALS: BP_SYST 98
[2018-05-18] MEDS: INSULIN REGULAR, HUMAN 100 UNITS/ML, 10 ML VIAL (novoLIN R) SUBCUT PRN ×4 (00:20→17:54)
[2018-05-18 01:20] VITALS: BP_SYST 119
[2018-05-18] MEDS: PIPERACILLIN/TAZO 2.25G/DEX-IS 50 ML IV SCH ×3 (02:28→17:50)
[2018-05-18] MEDS: D5W 1,000 ML IV SCH ×2 (06:31→15:54)
[2018-05-18 07:53] VITALS: BP_SYST 120
[2018-05-18 08:26] LABS: ALBUMIN 1.2 g/dL (3.4-4.8); CALCIUM 7.6 mg/dL (8.4-11.0); CREATININE 2.61 mg/dL (0.55-1.30); POTASSIUM 4.3 mmol/L (3.5-5.1); TOTAL BILIRUBIN 0.5 mg/dL (0.0-1.0)
[2018-05-18 08:53] LABS: HEMATOCRIT 26.2 % (36-48); HEMOGLOBIN 8.3 g/dL (12.0-16.0); RED BLOOD CELL COUNT(AUTO) 3.24 MIL/uL (4.2-6.2); WHITE BLOOD COUNT (AUTO) 11.8 K/uL (4.8-10.8)
[2018-05-18 08:54] LABS: MEAN CORPUSCULAR HEMOGLOBIN 26 pg (27-31); MEAN CORPUSCULAR HGB CONC 32 % (32-36); MEAN CORPUSCULAR VOLUME 81 fL (79.0-98.0); PLATELET COUNT (AUTO) 106 K/uL (130-430); RED CELL DISTRIBUTION WIDTH 21.6 % (9.0-15.0)
[2018-05-18] MEDS: LACTULOSE 20 GM/30 ML UDC GT SCH ×2 (09:56→21:01)
[2018-05-18] MEDS: CHOLECALCIFEROL (VITAMIN D3) 2,000 UNIT TABLET GT SCH (09:56)
[2018-05-18] MEDS: CALCIUM CARBONATE/VITAMIN D3 1 TAB TABLET GT SCH ×2 (09:56→21:02)
[2018-05-18] MEDS: ASCORBIC ACID 500 MG TABLET GT SCH (09:56)
[2018-05-18] MEDS: LevETIRAcetam 500 MG/5 ML UDC ORAL LIQUID GT SCH ×2 (09:57→21:01)
[2018-05-18] MEDS: BALSAM PERU/CASTOR OIL 60 GM OINT...G. TP SCH (09:57)
[2018-05-18] MEDS: MULTIVIT-MINERALS/FERROUS GLUC 15 ML UDC GT SCH ×2 (09:57→21:15)
[2018-05-18 10:21] LABS: ATYPICAL LYMPHOCYTES % 1 % (0-0); BAND % (MANUAL) 2 % (0-6); BASOPHILS % (MANUAL) 0 % (0-2); EOSINOPHILS % (MANUAL) 1 % (0-7); LYMPHOCYTES % (MANUAL) 12 % (20-46); METAMYELOCYTES % 3 % (0-0); MONOCYTES % (MANUAL) 7 % (0-11)
[2018-05-18 12:10] VITALS: BP_SYST 96
[2018-05-18] MEDS ORDERED: FUROSEMIDE 20 MG/2 ML VIAL IVP ONE (14:30)
[2018-05-18 16:02] VITALS: BP_SYST 95
[2018-05-18 21:00] VITALS: BP_SYST 108
[2018-05-18 22:49] LABS: BILIRUBIN,URINE NEGATIVE (NEGATIVE); BLOOD, URINE 2+ (NEGATIVE); CLARITY/URINE CLEAR (CLEAR); COLOR,URINE YELLOW (YELLOW); GLUCOSE,URINE 1+ (NEGATIVE); KETONES,URINE NEGATIVE (NEGATIVE); LEUKOCYTE ESTERASE ,URINE NEGATIVE (NEGATIVE); NITRITE, URINE NEGATIVE (NEGATIVE); PH,URINE 5.5 (5.0-8.0); PROTEIN URINE 1+ (NEGATIVE); UROBILINOGEN,URINE 0.2 (0.2-1.0)
[2018-05-18 22:57] LABS: WBC,URINE 0-3 /HPF (0-3)
[2018-05-18 22:58] LABS: BACTERIA,URINE FEW /HPF (None Seen)
[2018-05-19 00:10] VITALS: BP_SYST 94
[2018-05-19] MEDS: INSULIN REGULAR, HUMAN 100 UNITS/ML, 10 ML VIAL (novoLIN R) SUBCUT PRN ×2 (00:19→06:58)
[2018-05-19] MEDS: PIPERACILLIN/TAZO 2.25G/DEX-IS 50 ML IV SCH ×2 (01:52→09:54)
[2018-05-19] MEDS: D5W 1,000 ML IV SCH (04:50)
[2018-05-19 07:46] LABS: ALBUMIN 1.2 g/dL (3.4-4.8); CALCIUM 7.3 mg/dL (8.4-11.0); CREATININE 2.58 mg/dL (0.55-1.30); POTASSIUM 3.8 mmol/L (3.5-5.1); TOTAL BILIRUBIN 0.4 mg/dL (0.0-1.0)
[2018-05-19 08:00] VITALS: BP_SYST 97
[2018-05-19] MEDS: ASCORBIC ACID 500 MG TABLET GT SCH (08:44)
[2018-05-19] MEDS: CHOLECALCIFEROL (VITAMIN D3) 2,000 UNIT TABLET GT SCH (08:44)
[2018-05-19] MEDS: LevETIRAcetam 500 MG/5 ML UDC ORAL LIQUID GT SCH ×2 (08:45→22:32)
[2018-05-19] MEDS: LACTULOSE 20 GM/30 ML UDC GT SCH ×2 (08:45→22:32)
[2018-05-19] MEDS: MULTIVIT-MINERALS/FERROUS GLUC 15 ML UDC GT SCH ×2 (08:45→22:27)
[2018-05-19] MEDS: CALCIUM CARBONATE/VITAMIN D3 1 TAB TABLET GT SCH ×2 (08:45→22:51)
[2018-05-19] MEDS: BALSAM PERU/CASTOR OIL 60 GM OINT...G. TP SCH (08:46)
[2018-05-19] MEDS ORDERED: 0.45% NACL 1,000 ML IV SCH (09:30)
[2018-05-19] MEDS ORDERED: ALBUMIN HUMAN 25% 100 ML IV ONE (09:30)
[2018-05-19 09:38] LABS: MEAN CORPUSCULAR HEMOGLOBIN 26 pg (27-31); MEAN CORPUSCULAR HGB CONC 32 % (32-36); MEAN CORPUSCULAR VOLUME 80 fL (79.0-98.0); RED BLOOD CELL COUNT(AUTO) 2.72 MIL/uL (4.2-6.2); RED CELL DISTRIBUTION WIDTH 22.4 % (9.0-15.0); WHITE BLOOD COUNT (AUTO) 8.1 K/uL (4.8-10.8)
[2018-05-19 09:39] LABS: PLATELET COUNT (AUTO) 96 K/uL (130-430)
[2018-05-19 09:40] LABS: BASOPHILS % (AUTO) 0.3 % (0.0-2.0); EOSINOPHILS # (AUTO) 0.1 K/uL (0.0-0.4); EOSINOPHILS % (AUTO) 1.4 % (0.0-4.0); LYMPHOCYTES # (AUTO) 0.9 K/uL (1.0-5.5); LYMPHOCYTES % (AUTO) 10.9 % (20.5-51.5); MONOCYTES # (AUTO) 0.5 K/uL (0.0-1.0); MONOCYTES % (AUTO) 6.1 % (1.7-9.3); NEUTROPHILS # (AUTO) 6.6 K/uL (1.8-7.7); NEUTROPHILS % (AUTO) 81.3 % (40.0-70.0)
[2018-05-19 10:14] LABS: HEMATOCRIT 21.7 % (36-48)
[2018-05-19 12:02] VITALS: BP_SYST 121
[2018-05-19 16:02] VITALS: BP_SYST 102
[2018-05-19] MEDS: EPOETIN ALFA 4,000 UNITS/ML VIAL SUBCUT SCH (17:34)
[2018-05-19] MEDS ORDERED: D5/0.45 NS 1,000 ML IV SCH (18:15)
[2018-05-19] MEDS ORDERED: GASTROGRAFIN 120 ML ONE (19:15)
[2018-05-19 20:10] VITALS: BP_SYST 105
[2018-05-19] MEDS ORDERED: AMPICILLIN SODIUM 1 GM VIAL ONE (22:47)
[2018-05-19] MEDS: AMPICILLIN SODIUM 1 GM in NS 50 ML IV SCH (22:47)
[2018-05-20] MEDS ORDERED: ONDANSETRON HCL 4 MG/2 ML VIAL IM PRN (01:00)
[2018-05-20] MEDS ORDERED: D5/0.45 NS 1,000 ML IV SCH (01:15)
[2018-05-20 02:14] VITALS: BP_SYST 126
[2018-05-20] MEDS: BALSAM PERU/CASTOR OIL 60 GM OINT...G. TP SCH (03:34)
[2018-05-20] MEDS: AMPICILLIN SODIUM 1 GM in NS 50 ML IV SCH ×5 (06:22→17:37)
[2018-05-20] MEDS: INSULIN REGULAR, HUMAN 100 UNITS/ML, 10 ML VIAL (novoLIN R) SUBCUT PRN ×3 (06:26→17:41)
[2018-05-20 07:06] LABS: CALCIUM 7.5 mg/dL (8.4-11.0); CREATININE 2.31 mg/dL (0.55-1.30); POTASSIUM 3.8 mmol/L (3.5-5.1)
[2018-05-20 08:15] LABS: RED BLOOD CELL COUNT(AUTO) 3.44 MIL/uL (4.2-6.2); WHITE BLOOD COUNT (AUTO) 7.5 K/uL (4.8-10.8)
[2018-05-20 08:16] LABS: HEMATOCRIT 27.6 % (36-48); HEMOGLOBIN 8.9 g/dL (12.0-16.0); MEAN CORPUSCULAR HEMOGLOBIN 26 pg (27-31); MEAN CORPUSCULAR HGB CONC 32 % (32-36); MEAN CORPUSCULAR VOLUME 80 fL (79.0-98.0); RED CELL DISTRIBUTION WIDTH 20.6 % (9.0-15.0)
[2018-05-20 08:17] LABS: BASOPHILS % (AUTO) 0.4 % (0.0-2.0); EOSINOPHILS # (AUTO) 0.1 K/uL (0.0-0.4); EOSINOPHILS % (AUTO) 1.3 % (0.0-4.0); LYMPHOCYTES # (AUTO) 0.7 K/uL (1.0-5.5); LYMPHOCYTES % (AUTO) 9.9 % (20.5-51.5); MONOCYTES # (AUTO) 0.4 K/uL (0.0-1.0); MONOCYTES % (AUTO) 4.9 % (1.7-9.3); NEUTROPHILS # (AUTO) 6.3 K/uL (1.8-7.7); NEUTROPHILS % (AUTO) 83.5 % (40.0-70.0)
[2018-05-20] MEDS: ASCORBIC ACID 500 MG TABLET GT SCH (08:40)
[2018-05-20] MEDS: CHOLECALCIFEROL (VITAMIN D3) 2,000 UNIT TABLET GT SCH (08:40)
[2018-05-20] MEDS: LevETIRAcetam 500 MG/5 ML UDC ORAL LIQUID GT SCH ×2 (08:41→21:05)
[2018-05-20] MEDS: LACTULOSE 20 GM/30 ML UDC GT SCH ×2 (08:41→21:04)
[2018-05-20] MEDS: CALCIUM CARBONATE/VITAMIN D3 1 TAB TABLET GT SCH ×2 (08:41→21:02)
[2018-05-20] MEDS: MULTIVIT-MINERALS/FERROUS GLUC 15 ML UDC GT SCH ×2 (08:41→21:03)
[2018-05-20 08:45] VITALS: BP_SYST 87
[2018-05-20] MEDS ORDERED: methylPREDNISolone SOD SUCC/PF 62.5 MG/ML VIAL IVP ONE (09:00)
[2018-05-20] MEDS ORDERED: NACL 0.9% 1,000 ML IV ONE (09:00)
[2018-05-20 09:29] LABS: PLATELET COUNT (AUTO) 76 K/uL (130-430)
[2018-05-20] MEDS ORDERED: PANTOPRAZOLE SODIUM 40 MG/VIAL (PROTONIX) IVP ONE (12:15)
[2018-05-20 12:19] VITALS: BP_SYST 131
[2018-05-20] MEDS: KCL 10 mEq in D5/0.45NS 1000mL 1,000 ML IV SCH ×2 (12:30→21:06)
[2018-05-20] MEDS ORDERED: DIATR MEGLU/DIATRIZ SOD 30 ML SOLUTION PO ONE (13:26)
[2018-05-20 16:53] VITALS: BP_SYST 134
[2018-05-20] MEDS: methylPREDNISolone SOD SUCC 40 MG/ML VIAL IVP SCH (17:37)
[2018-05-20 20:30] VITALS: BP_SYST 141
[2018-05-20] MEDS: PANTOPRAZOLE SODIUM 40 MG/VIAL (PROTONIX) IVP SCH (21:06)
[2018-05-21] VITALS (7 sets, daily range): BP systolic 105–162
[2018-05-21] MEDS: methylPREDNISolone SOD SUCC 40 MG/ML VIAL IVP SCH ×5 (00:12→23:46)
[2018-05-21] MEDS: AMPICILLIN SODIUM 1 GM in NS 50 ML IV SCH ×5 (00:12→23:45)
[2018-05-21] MEDS: INSULIN REGULAR, HUMAN 100 UNITS/ML, 10 ML VIAL (novoLIN R) SUBCUT PRN ×5 (00:20→23:50)
[2018-05-21 08:32] LABS: ALBUMIN 1.5 g/dL (3.4-4.8); CREATININE 2.03 mg/dL (0.55-1.30); POTASSIUM 4.1 mmol/L (3.5-5.1); TOTAL BILIRUBIN 0.4 mg/dL (0.0-1.0)
[2018-05-21] MEDS ORDERED: methylPREDNISolone SOD SUCC 40 MG/ML VIAL IVP SCH (09:00)
[2018-05-21] MEDS: ASCORBIC ACID 500 MG TABLET GT SCH (09:00)
[2018-05-21] MEDS: CALCIUM CARBONATE/VITAMIN D3 1 TAB TABLET GT SCH ×2 (09:00→21:33)
[2018-05-21] MEDS: BALSAM PERU/CASTOR OIL 60 GM OINT...G. TP SCH (09:00)
[2018-05-21] MEDS: CHOLECALCIFEROL (VITAMIN D3) 2,000 UNIT TABLET GT SCH (09:00)
[2018-05-21] MEDS: LevETIRAcetam 500 MG/5 ML UDC ORAL LIQUID GT SCH ×2 (09:00→21:33)
[2018-05-21] MEDS: MULTIVIT-MINERALS/FERROUS GLUC 15 ML UDC GT SCH ×2 (09:00→21:34)
[2018-05-21] MEDS: LACTULOSE 20 GM/30 ML UDC GT SCH ×2 (09:00→21:33)
[2018-05-21] MEDS: KCL 10 mEq in D5/0.45NS 1000mL 1,000 ML IV SCH ×2 (09:02→17:26)
[2018-05-21] MEDS: PANTOPRAZOLE SODIUM 40 MG/VIAL (PROTONIX) IVP SCH ×2 (09:03→21:33)
[2018-05-21 09:08] LABS: HEMATOCRIT 32.5 % (36-48); HEMOGLOBIN 10.3 g/dL (12.0-16.0); MEAN CORPUSCULAR HEMOGLOBIN 26 pg (27-31); MEAN CORPUSCULAR HGB CONC 32 % (32-36); MEAN CORPUSCULAR VOLUME 82 fL (79.0-98.0); RED BLOOD CELL COUNT(AUTO) 3.96 MIL/uL (4.2-6.2); WHITE BLOOD COUNT (AUTO) 7.3 K/uL (4.8-10.8)
[2018-05-21 09:09] LABS: BASOPHILS % (AUTO) 0.2 % (0.0-2.0); LYMPHOCYTES # (AUTO) 0.3 K/uL (1.0-5.5); LYMPHOCYTES % (AUTO) 4.4 % (20.5-51.5); MONOCYTES # (AUTO) 0.2 K/uL (0.0-1.0); MONOCYTES % (AUTO) 2.1 % (1.7-9.3); NEUTROPHILS # (AUTO) 6.8 K/uL (1.8-7.7)
[2018-05-21 11:10] LABS: PLATELET COUNT (AUTO) 102 K/uL (130-430)
[2018-05-21 11:11] LABS: NEUTROPHILS % (AUTO) 93.3 % (40.0-70.0)
[2018-05-21] MEDS ORDERED: fentaNYL CITRATE/PF 100 MCG/2 ML AMP IVP PRN ×2 (11:45)
[2018-05-21] MEDS ORDERED: ONDANSETRON HCL 4 MG/2 ML VIAL IVP PRN (11:45)
[2018-05-21] MEDS ORDERED: ALBUMIN HUMAN 25% 50 ML IV ONE (11:45)
[2018-05-21] MEDS ORDERED: POLYMYXIN 500,000/BACIT.10,000 UNITS in NS IRR 1 L IR ONE (12:13)
[2018-05-22 00:34] VITALS: BP_SYST 106
[2018-05-22] MEDS: KCL 10 mEq in D5/0.45NS 1000mL 1,000 ML IV SCH (03:41)
[2018-05-22] MEDS: AMPICILLIN SODIUM 1 GM in NS 50 ML IV SCH ×4 (05:29→23:20)
[2018-05-22] MEDS: methylPREDNISolone SOD SUCC 40 MG/ML VIAL IVP SCH ×4 (05:29→23:20)
[2018-05-22] MEDS: INSULIN REGULAR, HUMAN 100 UNITS/ML, 10 ML VIAL (novoLIN R) SUBCUT PRN ×4 (05:35→23:22)
[2018-05-22 08:18] LABS: CALCIUM 7.7 mg/dL (8.4-11.0); CREATININE 1.94 mg/dL (0.55-1.30); POTASSIUM 4.8 mmol/L (3.5-5.1)
[2018-05-22 09:50] LABS: HEMATOCRIT 28.3 % (36-48); HEMOGLOBIN 8.9 g/dL (12.0-16.0); RED BLOOD CELL COUNT(AUTO) 3.44 MIL/uL (4.2-6.2); WHITE BLOOD COUNT (AUTO) 7.2 K/uL (4.8-10.8)
[2018-05-22 09:51] LABS: MEAN CORPUSCULAR HEMOGLOBIN 26 pg (27-31); MEAN CORPUSCULAR HGB CONC 32 % (32-36); MEAN CORPUSCULAR VOLUME 82 fL (79.0-98.0); RED CELL DISTRIBUTION WIDTH 20.8 % (9.0-15.0)
[2018-05-22 09:52] LABS: BASOPHILS % (AUTO) 0.2 % (0.0-2.0); LYMPHOCYTES # (AUTO) 0.4 K/uL (1.0-5.5); LYMPHOCYTES % (AUTO) 5.3 % (20.5-51.5); MONOCYTES # (AUTO) 0.2 K/uL (0.0-1.0); MONOCYTES % (AUTO) 2.8 % (1.7-9.3); NEUTROPHILS # (AUTO) 6.6 K/uL (1.8-7.7); NEUTROPHILS % (AUTO) 91.7 % (40.0-70.0); PLATELET COUNT (AUTO) 135 K/uL (130-430)
[2018-05-22] MEDS: PANTOPRAZOLE SODIUM 40 MG/VIAL (PROTONIX) IVP SCH ×2 (10:06→22:05)
[2018-05-22] MEDS: LevETIRAcetam 500 MG/5 ML UDC ORAL LIQUID GT SCH ×2 (10:07→22:05)
[2018-05-22] MEDS: ASCORBIC ACID 500 MG TABLET GT SCH (10:07)
[2018-05-22] MEDS: DOCUSATE SODIUM 100 MG/10 ML UDC GT PRN (10:07)
[2018-05-22] MEDS: LACTULOSE 20 GM/30 ML UDC GT SCH ×2 (10:07→22:04)
[2018-05-22] MEDS: CALCIUM CARBONATE/VITAMIN D3 1 TAB TABLET GT SCH ×2 (10:07→22:05)
[2018-05-22] MEDS: CHOLECALCIFEROL (VITAMIN D3) 2,000 UNIT TABLET GT SCH (10:07)
[2018-05-22] MEDS: MULTIVIT-MINERALS/FERROUS GLUC 15 ML UDC GT SCH ×2 (10:08→22:05)
[2018-05-22] MEDS: BALSAM PERU/CASTOR OIL 60 GM OINT...G. TP SCH (12:24)
[2018-05-22 12:27] VITALS: BP_SYST 95
[2018-05-22] MEDS: 0.45% NACL 1,000 ML IV SCH (16:51)
[2018-05-22 16:58] VITALS: BP_SYST 106
[2018-05-22] MEDS: EPOETIN ALFA 4,000 UNITS/ML VIAL SUBCUT SCH (18:46)
[2018-05-22] MEDS: MUPIROCIN NASAL 2% OINT. NS SCH (21:00)
[2018-05-22 22:01] VITALS: BP_SYST 104
[2018-05-23] MEDS: 0.45% NACL 1,000 ML IV SCH ×2 (01:09→06:28)
[2018-05-23 03:24] VITALS: BP_SYST 117
[2018-05-23] MEDS: methylPREDNISolone SOD SUCC 40 MG/ML VIAL IVP SCH ×2 (05:47→12:01)
[2018-05-23] MEDS: AMPICILLIN SODIUM 1 GM in NS 50 ML IV SCH ×4 (05:47→23:04)
[2018-05-23] MEDS: INSULIN REGULAR, HUMAN 100 UNITS/ML, 10 ML VIAL (novoLIN R) SUBCUT PRN ×3 (05:49→23:12)
[2018-05-23 06:49] LABS: CREATININE 1.76 mg/dL (0.55-1.30)
[2018-05-23 06:50] LABS: BASOPHILS % (AUTO) 0.1 % (0.0-2.0); HEMATOCRIT 29.2 % (36-48); HEMOGLOBIN 9.3 g/dL (12.0-16.0); LYMPHOCYTES # (AUTO) 0.6 K/uL (1.0-5.5); LYMPHOCYTES % (AUTO) 5.7 % (20.5-51.5); MEAN CORPUSCULAR HEMOGLOBIN 26 pg (27-31); MEAN CORPUSCULAR HGB CONC 32 % (32-36); MEAN CORPUSCULAR VOLUME 82 fL (79.0-98.0); MONOCYTES # (AUTO) 0.3 K/uL (0.0-1.0); MONOCYTES % (AUTO) 3.4 % (1.7-9.3); NEUTROPHILS # (AUTO) 8.7 K/uL (1.8-7.7); NEUTROPHILS % (AUTO) 90.8 % (40.0-70.0); PLATELET COUNT (AUTO) 107 K/uL (130-430); RED BLOOD CELL COUNT(AUTO) 3.55 MIL/uL (4.2-6.2); RED CELL DISTRIBUTION WIDTH 20.2 % (9.0-15.0); WHITE BLOOD COUNT (AUTO) 9.6 K/uL (4.8-10.8)
[2018-05-23 08:00] VITALS: BP_SYST 118
[2018-05-23] MEDS: LACTULOSE 20 GM/30 ML UDC GT SCH ×2 (09:43→20:49)
[2018-05-23] MEDS: DOCUSATE SODIUM 100 MG/10 ML UDC GT PRN (09:43)
[2018-05-23] MEDS: MULTIVIT-MINERALS/FERROUS GLUC 15 ML UDC GT SCH ×2 (09:44→20:49)
[2018-05-23] MEDS: ASCORBIC ACID 500 MG TABLET GT SCH (09:44)
[2018-05-23] MEDS: CALCIUM CARBONATE/VITAMIN D3 1 TAB TABLET GT SCH ×2 (09:44→20:49)
[2018-05-23] MEDS: PANTOPRAZOLE SODIUM 40 MG/VIAL (PROTONIX) IVP SCH ×2 (09:44→20:49)
[2018-05-23] MEDS: LevETIRAcetam 500 MG/5 ML UDC ORAL LIQUID GT SCH ×2 (09:44→20:56)
[2018-05-23] MEDS: CHOLECALCIFEROL (VITAMIN D3) 2,000 UNIT TABLET GT SCH (09:44)
[2018-05-23] MEDS: MUPIROCIN NASAL 2% OINT. NS SCH ×2 (09:46→20:50)
[2018-05-23] MEDS: BALSAM PERU/CASTOR OIL 60 GM OINT...G. TP SCH (09:47)
[2018-05-23 12:53] VITALS: BP_SYST 150
[2018-05-23 16:13] VITALS: BP_SYST 160
[2018-05-23] MEDS: NACL 0.9% 1,000 ML IV SCH (20:49)
[2018-05-23 21:45] VITALS: BP_SYST 147
[2018-05-24] MEDS ORDERED: methylPREDNISolone SOD SUCC 40 MG/ML VIAL IVP SCH
[2018-05-24 01:02] VITALS: BP_SYST 134
[2018-05-24] MEDS: AMPICILLIN SODIUM 1 GM in NS 50 ML IV SCH ×4 (05:06→23:10)
[2018-05-24] MEDS: INSULIN REGULAR, HUMAN 100 UNITS/ML, 10 ML VIAL (novoLIN R) SUBCUT PRN ×4 (05:10→23:45)
[2018-05-24] MEDS: NACL 0.9% 1,000 ML IV SCH ×2 (05:10→22:22)
[2018-05-24 07:13] LABS: BASOPHILS % (AUTO) 0.2 % (0.0-2.0); HEMATOCRIT 30.5 % (36-48); HEMOGLOBIN 9.7 g/dL (12.0-16.0); LYMPHOCYTES # (AUTO) 0.9 K/uL (1.0-5.5); LYMPHOCYTES % (AUTO) 8.2 % (20.5-51.5); MEAN CORPUSCULAR HEMOGLOBIN 26 pg (27-31); MEAN CORPUSCULAR HGB CONC 32 % (32-36); MEAN CORPUSCULAR VOLUME 82 fL (79.0-98.0); MONOCYTES # (AUTO) 0.4 K/uL (0.0-1.0); MONOCYTES % (AUTO) 4.2 % (1.7-9.3); NEUTROPHILS # (AUTO) 9.3 K/uL (1.8-7.7); NEUTROPHILS % (AUTO) 87.4 % (40.0-70.0); PLATELET COUNT (AUTO) 134 K/uL (130-430); RED BLOOD CELL COUNT(AUTO) 3.75 MIL/uL (4.2-6.2); RED CELL DISTRIBUTION WIDTH 19.9 % (9.0-15.0); WHITE BLOOD COUNT (AUTO) 10.7 K/uL (4.8-10.8)
[2018-05-24 07:17] LABS: CALCIUM 8.4 mg/dL (8.4-11.0); CREATININE 1.66 mg/dL (0.55-1.30); POTASSIUM 5.5 mmol/L (3.5-5.1)
[2018-05-24 08:00] VITALS: BP_SYST 129
[2018-05-24] MEDS ORDERED: SODIUM POLYSTYRENE SULFONATE 15 GM/60 ML UDBTL GT ONE (08:45)
[2018-05-24] MEDS ORDERED: SODIUM POLYSTYRENE SULFONATE 15 GM/60 ML UDBTL RC ONE (09:00)
[2018-05-24] MEDS: PANTOPRAZOLE SODIUM 40 MG/VIAL (PROTONIX) IVP SCH (09:08)
[2018-05-24] MEDS: CHOLECALCIFEROL (VITAMIN D3) 2,000 UNIT TABLET GT SCH (09:08)
[2018-05-24] MEDS: LACTULOSE 20 GM/30 ML UDC GT SCH ×2 (09:08→22:20)
[2018-05-24] MEDS: MULTIVIT-MINERALS/FERROUS GLUC 15 ML UDC GT SCH ×2 (09:09→21:00)
[2018-05-24] MEDS: CALCIUM CARBONATE/VITAMIN D3 1 TAB TABLET GT SCH ×2 (09:09→22:19)
[2018-05-24] MEDS: ASCORBIC ACID 500 MG TABLET GT SCH (09:09)
[2018-05-24] MEDS: LevETIRAcetam 500 MG/5 ML UDC ORAL LIQUID GT SCH ×2 (09:10→22:20)
[2018-05-24] MEDS: MUPIROCIN NASAL 2% OINT. NS SCH ×2 (09:11→22:22)
[2018-05-24] MEDS: BALSAM PERU/CASTOR OIL 60 GM OINT...G. TP SCH (09:11)
[2018-05-24 11:28] VITALS: BP_SYST 142
[2018-05-24] MEDS ORDERED: PREDNISONE 10 MG TABLET GT ONE (11:30)
[2018-05-24 11:35] VITALS: BP_SYST 142
[2018-05-24] MEDS: VANCOMYCIN HCL 1.25 GM/NS 250 ML IV SCH (14:01)
[2018-05-24 15:53] VITALS: BP_SYST 124
[2018-05-24] MEDS: PREDNISONE 10 MG TABLET GT SCH (17:07)
[2018-05-24] MEDS: EPOETIN ALFA 4,000 UNITS/ML VIAL SUBCUT SCH (17:08)
[2018-05-24 20:31] VITALS: BP_SYST 125
[2018-05-24] MEDS: PANTOPRAZOLE GRANULES PACKET 40 MG GT SCH (22:19)
[2018-05-25 05:54] VITALS: BP_SYST 124
[2018-05-25] MEDS: AMPICILLIN SODIUM 1 GM in NS 50 ML IV SCH ×4 (06:31→23:31)
[2018-05-25] MEDS: INSULIN REGULAR, HUMAN 100 UNITS/ML, 10 ML VIAL (novoLIN R) SUBCUT PRN ×4 (06:36→23:36)
[2018-05-25 07:02] LABS: CALCIUM 8.2 mg/dL (8.4-11.0); CREATININE 1.49 mg/dL (0.55-1.30)
[2018-05-25 07:06] LABS: BASOPHILS % (AUTO) 0.1 % (0.0-2.0); EOSINOPHILS # (AUTO) 0.1 K/uL (0.0-0.4); HEMATOCRIT 27.7 % (36-48); LYMPHOCYTES # (AUTO) 1.2 K/uL (1.0-5.5); MEAN CORPUSCULAR HEMOGLOBIN 26 pg (27-31); MEAN CORPUSCULAR HGB CONC 32 % (32-36); MEAN CORPUSCULAR VOLUME 81 fL (79.0-98.0); MONOCYTES # (AUTO) 0.4 K/uL (0.0-1.0); MONOCYTES % (AUTO) 4.6 % (1.7-9.3); NEUTROPHILS # (AUTO) 7.8 K/uL (1.8-7.7); NEUTROPHILS % (AUTO) 81.3 % (40.0-70.0); PLATELET COUNT (AUTO) 125 K/uL (130-430); RED BLOOD CELL COUNT(AUTO) 3.42 MIL/uL (4.2-6.2); RED CELL DISTRIBUTION WIDTH 19.7 % (9.0-15.0); WHITE BLOOD COUNT (AUTO) 9.6 K/uL (4.8-10.8)
[2018-05-25 07:20] LABS: POTASSIUM 4.6 mmol/L (3.5-5.1)
[2018-05-25] MEDS: IPRATROPIUM/ALBUTEROL SULFATE 3 ML AMPUL.NEB (DUONEB) INH PRN ×2 (07:31→20:40)
[2018-05-25 08:05] VITALS: BP_SYST 158
[2018-05-25] MEDS: BALSAM PERU/CASTOR OIL 60 GM OINT...G. TP SCH (09:00)
[2018-05-25] MEDS: MULTIVIT-MINERALS/FERROUS GLUC 15 ML UDC GT SCH ×2 (09:04→21:06)
[2018-05-25] MEDS: LevETIRAcetam 500 MG/5 ML UDC ORAL LIQUID GT SCH ×2 (09:05→21:06)
[2018-05-25] MEDS: LACTULOSE 20 GM/30 ML UDC GT SCH ×2 (09:05→21:06)
[2018-05-25] MEDS: PANTOPRAZOLE GRANULES PACKET 40 MG GT SCH ×2 (09:06→21:06)
[2018-05-25] MEDS: CHOLECALCIFEROL (VITAMIN D3) 2,000 UNIT TABLET GT SCH (09:06)
[2018-05-25] MEDS: ASCORBIC ACID 500 MG TABLET GT SCH (09:06)
[2018-05-25] MEDS: CALCIUM CARBONATE/VITAMIN D3 1 TAB TABLET GT SCH ×2 (09:06→21:06)
[2018-05-25] MEDS: MUPIROCIN NASAL 2% OINT. NS SCH ×2 (09:06→21:09)
[2018-05-25] MEDS: PREDNISONE 10 MG TABLET GT SCH ×2 (09:06→17:53)
[2018-05-25 12:02] VITALS: BP_SYST 140
[2018-05-25] MEDS: NACL 0.9% 1,000 ML IV SCH (14:30)
[2018-05-25 16:00] VITALS: BP_SYST 121
[2018-05-25 20:00] VITALS: BP_SYST 129
[2018-05-26 01:14] VITALS: BP_SYST 121
[2018-05-26] MEDS: VANCOMYCIN HCL 1.25 GM/NS 250 ML IV SCH (01:22)
[2018-05-26] MEDS: AMPICILLIN SODIUM 1 GM in NS 50 ML IV SCH ×4 (05:13→23:39)
[2018-05-26] MEDS: INSULIN REGULAR, HUMAN 100 UNITS/ML, 10 ML VIAL (novoLIN R) SUBCUT PRN ×4 (05:35→23:45)
[2018-05-26] MEDS: NACL 0.9% 1,000 ML IV SCH (05:42)
[2018-05-26 06:51] LABS: BASOPHILS % (AUTO) 0.1 % (0.0-2.0); EOSINOPHILS # (AUTO) 0.1 K/uL (0.0-0.4); EOSINOPHILS % (AUTO) 1.3 % (0.0-4.0); HEMATOCRIT 26.9 % (36-48); HEMOGLOBIN 8.5 g/dL (12.0-16.0); LYMPHOCYTES # (AUTO) 1.3 K/uL (1.0-5.5); LYMPHOCYTES % (AUTO) 14.4 % (20.5-51.5); MEAN CORPUSCULAR HEMOGLOBIN 26 pg (27-31); MEAN CORPUSCULAR HGB CONC 32 % (32-36); MEAN CORPUSCULAR VOLUME 81 fL (79.0-98.0); MONOCYTES # (AUTO) 0.3 K/uL (0.0-1.0); MONOCYTES % (AUTO) 3.5 % (1.7-9.3); NEUTROPHILS % (AUTO) 80.7 % (40.0-70.0); PLATELET COUNT (AUTO) 113 K/uL (130-430); RED BLOOD CELL COUNT(AUTO) 3.31 MIL/uL (4.2-6.2); RED CELL DISTRIBUTION WIDTH 20.1 % (9.0-15.0); WHITE BLOOD COUNT (AUTO) 8.7 K/uL (4.8-10.8)
[2018-05-26 06:52] LABS: CALCIUM 8.2 mg/dL (8.4-11.0); CREATININE 1.4 mg/dL (0.55-1.30); POTASSIUM 5.1 mmol/L (3.5-5.1)
[2018-05-26 08:05] VITALS: BP_SYST 122
[2018-05-26] MEDS: LACTULOSE 20 GM/30 ML UDC GT SCH ×2 (08:29→22:21)
[2018-05-26] MEDS: CHOLECALCIFEROL (VITAMIN D3) 2,000 UNIT TABLET GT SCH (08:29)
[2018-05-26] MEDS: PANTOPRAZOLE GRANULES PACKET 40 MG GT SCH ×2 (08:29→22:22)
[2018-05-26] MEDS: CALCIUM CARBONATE/VITAMIN D3 1 TAB TABLET GT SCH ×2 (08:29→22:22)
[2018-05-26] MEDS: PREDNISONE 10 MG TABLET GT SCH (08:29)
[2018-05-26] MEDS: ASCORBIC ACID 500 MG TABLET GT SCH (08:29)
[2018-05-26] MEDS: MULTIVIT-MINERALS/FERROUS GLUC 15 ML UDC GT SCH ×2 (08:30→22:21)
[2018-05-26] MEDS: LevETIRAcetam 500 MG/5 ML UDC ORAL LIQUID GT SCH ×2 (08:30→22:21)
[2018-05-26] MEDS: MUPIROCIN NASAL 2% OINT. NS SCH (08:32)
[2018-05-26] MEDS: 0.45% NACL 1,000 ML IV SCH (10:46)
[2018-05-26 12:40] VITALS: BP_SYST 148
[2018-05-26] MEDS: BALSAM PERU/CASTOR OIL 60 GM OINT...G. TP SCH (15:06)
[2018-05-26] MEDS: EPOETIN ALFA 4,000 UNITS/ML VIAL SUBCUT SCH (17:12)
[2018-05-26 17:49] VITALS: BP_SYST 136
[2018-05-26] MEDS: IPRATROPIUM/ALBUTEROL SULFATE 3 ML AMPUL.NEB (DUONEB) INH PRN (19:25)
[2018-05-26 20:00] VITALS: BP_SYST 132
[2018-05-26] MEDS: MUPIROCIN 2% TOPICAL OINTMENT 22 GM NS SCH (22:22)
[2018-05-27 01:33] VITALS: BP_SYST 106
[2018-05-27] MEDS: AMPICILLIN SODIUM 1 GM in NS 50 ML IV SCH ×2 (05:19→11:52)
[2018-05-27] MEDS: INSULIN REGULAR, HUMAN 100 UNITS/ML, 10 ML VIAL (novoLIN R) SUBCUT PRN ×4 (05:21→23:54)
[2018-05-27] MEDS: 0.45% NACL 1,000 ML IV SCH (05:22)
[2018-05-27 07:09] LABS: BASOPHILS % (AUTO) 0.3 % (0.0-2.0); EOSINOPHILS # (AUTO) 0.1 K/uL (0.0-0.4); EOSINOPHILS % (AUTO) 1.5 % (0.0-4.0); HEMATOCRIT 28.3 % (36-48); HEMOGLOBIN 8.9 g/dL (12.0-16.0); LYMPHOCYTES # (AUTO) 1.3 K/uL (1.0-5.5); LYMPHOCYTES % (AUTO) 14.8 % (20.5-51.5); MEAN CORPUSCULAR HEMOGLOBIN 26 pg (27-31); MEAN CORPUSCULAR HGB CONC 31 % (32-36); MEAN CORPUSCULAR VOLUME 82 fL (79.0-98.0); MONOCYTES # (AUTO) 0.4 K/uL (0.0-1.0); MONOCYTES % (AUTO) 4.4 % (1.7-9.3); NEUTROPHILS # (AUTO) 7.1 K/uL (1.8-7.7); PLATELET COUNT (AUTO) 119 K/uL (130-430); RED BLOOD CELL COUNT(AUTO) 3.45 MIL/uL (4.2-6.2); RED CELL DISTRIBUTION WIDTH 19.8 % (9.0-15.0)
[2018-05-27 07:45] LABS: ALBUMIN 1.5 g/dL (3.4-4.8); CALCIUM 8.5 mg/dL (8.4-11.0); CREATININE 1.33 mg/dL (0.55-1.30); TOTAL BILIRUBIN 0.5 mg/dL (0.0-1.0)
[2018-05-27] MEDS: MULTIVIT-MINERALS/FERROUS GLUC 15 ML UDC GT SCH ×3 (09:00→21:20)
[2018-05-27] MEDS: PANTOPRAZOLE GRANULES PACKET 40 MG GT SCH ×2 (09:18→21:20)
[2018-05-27] MEDS: ASCORBIC ACID 500 MG TABLET GT SCH (09:18)
[2018-05-27] MEDS: LevETIRAcetam 500 MG/5 ML UDC ORAL LIQUID GT SCH ×2 (09:18→21:20)
[2018-05-27] MEDS: CALCIUM CARBONATE/VITAMIN D3 1 TAB TABLET GT SCH ×2 (09:18→21:20)
[2018-05-27] MEDS: CHOLECALCIFEROL (VITAMIN D3) 2,000 UNIT TABLET GT SCH (09:18)
[2018-05-27] MEDS: PREDNISONE 10 MG TABLET GT SCH (09:19)
[2018-05-27] MEDS: MUPIROCIN 2% TOPICAL OINTMENT 22 GM NS SCH (09:21)
[2018-05-27] MEDS: BALSAM PERU/CASTOR OIL 60 GM OINT...G. TP SCH (09:21)
[2018-05-27] MEDS: LACTULOSE 20 GM/30 ML UDC GT SCH (09:25)
[2018-05-27 11:15] VITALS: BP_SYST 122
[2018-05-27] MEDS: VANCOMYCIN HCL 1.25 GM/NS 250 ML IV SCH (13:16)
[2018-05-27 16:00] VITALS: BP_SYST 121
[2018-05-27 21:18] VITALS: BP_SYST 111
[2018-05-27] MEDS: HEPARIN SODIUM,PORCINE 5000 UNITS/ML VIAL SUBCUT SCH (21:26)
[2018-05-28 00:03] VITALS: BP_SYST 108
[2018-05-28] MEDS: 0.45% NACL 1,000 ML IV SCH (05:07)
[2018-05-28] MEDS: INSULIN REGULAR, HUMAN 100 UNITS/ML, 10 ML VIAL (novoLIN R) SUBCUT PRN ×4 (05:10→23:19)
[2018-05-28 06:51] LABS: BASOPHILS % (AUTO) 0.1 % (0.0-2.0); EOSINOPHILS # (AUTO) 0.2 K/uL (0.0-0.4); EOSINOPHILS % (AUTO) 1.6 % (0.0-4.0); HEMATOCRIT 26.3 % (36-48); HEMOGLOBIN 8.4 g/dL (12.0-16.0); LYMPHOCYTES # (AUTO) 1.2 K/uL (1.0-5.5); LYMPHOCYTES % (AUTO) 12.9 % (20.5-51.5); MEAN CORPUSCULAR HEMOGLOBIN 26 pg (27-31); MEAN CORPUSCULAR HGB CONC 32 % (32-36); MEAN CORPUSCULAR VOLUME 82 fL (79.0-98.0); MONOCYTES # (AUTO) 0.5 K/uL (0.0-1.0); MONOCYTES % (AUTO) 4.9 % (1.7-9.3); NEUTROPHILS # (AUTO) 7.5 K/uL (1.8-7.7); NEUTROPHILS % (AUTO) 80.5 % (40.0-70.0); PLATELET COUNT (AUTO) 106 K/uL (130-430); RED BLOOD CELL COUNT(AUTO) 3.21 MIL/uL (4.2-6.2); RED CELL DISTRIBUTION WIDTH 20.2 % (9.0-15.0); WHITE BLOOD COUNT (AUTO) 9.4 K/uL (4.8-10.8)
[2018-05-28 06:58] LABS: CALCIUM 8.5 mg/dL (8.4-11.0); CREATININE 1.28 mg/dL (0.55-1.30); POTASSIUM 4.7 mmol/L (3.5-5.1)
[2018-05-28 08:00] VITALS: BP_SYST 131
[2018-05-28] MEDS: MULTIVIT-MINERALS/FERROUS GLUC 15 ML UDC GT SCH ×2 (09:45→21:31)
[2018-05-28] MEDS: CALCIUM CARBONATE/VITAMIN D3 1 TAB TABLET GT SCH ×2 (09:46→21:32)
[2018-05-28] MEDS: ASCORBIC ACID 500 MG TABLET GT SCH (09:46)
[2018-05-28] MEDS: CHOLECALCIFEROL (VITAMIN D3) 2,000 UNIT TABLET GT SCH (09:46)
[2018-05-28] MEDS: PANTOPRAZOLE GRANULES PACKET 40 MG GT SCH ×2 (09:46→21:32)
[2018-05-28] MEDS: PREDNISONE 10 MG TABLET GT SCH (09:47)
[2018-05-28] MEDS: LevETIRAcetam 500 MG/5 ML UDC ORAL LIQUID GT SCH ×2 (09:47→21:32)
[2018-05-28] MEDS: HEPARIN SODIUM,PORCINE 5000 UNITS/ML VIAL SUBCUT SCH ×2 (09:49→21:33)
[2018-05-28] MEDS: BALSAM PERU/CASTOR OIL 60 GM OINT...G. TP SCH (10:10)
[2018-05-28 11:41] VITALS: BP_SYST 140
[2018-05-28 17:00] VITALS: BP_SYST 119
[2018-05-28 19:45] VITALS: BP_SYST 119
[2018-05-28 21:27] VITALS: BP_SYST 140
[2018-05-29] MEDS: VANCOMYCIN HCL 1.25 GM/NS 250 ML IV SCH (00:41)
[2018-05-29 00:53] VITALS: BP_SYST 101
[2018-05-29] MEDS: 0.45% NACL 1,000 ML IV SCH (05:07)
[2018-05-29] MEDS: INSULIN REGULAR, HUMAN 100 UNITS/ML, 10 ML VIAL (novoLIN R) SUBCUT PRN ×3 (05:20→17:29)
[2018-05-29 06:40] LABS: BASOPHILS % (AUTO) 0.5 % (0.0-2.0); EOSINOPHILS # (AUTO) 0.1 K/uL (0.0-0.4); EOSINOPHILS % (AUTO) 1.7 % (0.0-4.0); HEMATOCRIT 24.6 % (36-48); HEMOGLOBIN 7.9 g/dL (12.0-16.0); LYMPHOCYTES # (AUTO) 1.3 K/uL (1.0-5.5); MEAN CORPUSCULAR HEMOGLOBIN 26 pg (27-31); MEAN CORPUSCULAR HGB CONC 32 % (32-36); MEAN CORPUSCULAR VOLUME 82 fL (79.0-98.0); MONOCYTES # (AUTO) 0.4 K/uL (0.0-1.0); MONOCYTES % (AUTO) 4.9 % (1.7-9.3); NEUTROPHILS # (AUTO) 6.2 K/uL (1.8-7.7); NEUTROPHILS % (AUTO) 76.9 % (40.0-70.0); PLATELET COUNT (AUTO) 102 K/uL (130-430); RED BLOOD CELL COUNT(AUTO) 3.01 MIL/uL (4.2-6.2); RED CELL DISTRIBUTION WIDTH 19.3 % (9.0-15.0); WHITE BLOOD COUNT (AUTO) 8.1 K/uL (4.8-10.8)
[2018-05-29 06:44] LABS: CREATININE 1.21 mg/dL (0.55-1.30); POTASSIUM 4.8 mmol/L (3.5-5.1)
[2018-05-29] MEDS: LevETIRAcetam 500 MG/5 ML UDC ORAL LIQUID GT SCH ×2 (08:27→22:01)
[2018-05-29] MEDS: PREDNISONE 10 MG TABLET GT SCH (08:27)
[2018-05-29] MEDS: ASCORBIC ACID 500 MG TABLET GT SCH (08:27)
[2018-05-29] MEDS: FOLIC ACID 1 MG TABLET GT SCH (08:27)
[2018-05-29] MEDS: CHOLECALCIFEROL (VITAMIN D3) 2,000 UNIT TABLET GT SCH (08:27)
[2018-05-29] MEDS: CALCIUM CARBONATE/VITAMIN D3 1 TAB TABLET GT SCH ×2 (08:27→22:01)
[2018-05-29] MEDS: MULTIVIT-MINERALS/FERROUS GLUC 15 ML UDC GT SCH ×2 (08:27→22:01)
[2018-05-29] MEDS: PANTOPRAZOLE GRANULES PACKET 40 MG GT SCH ×2 (08:27→22:01)
[2018-05-29] MEDS: HEPARIN SODIUM,PORCINE 5000 UNITS/ML VIAL SUBCUT SCH ×2 (08:36→22:03)
[2018-05-29 08:40] VITALS: BP_SYST 130
[2018-05-29 12:10] VITALS: BP_SYST 134
[2018-05-29] MEDS: BALSAM PERU/CASTOR OIL 60 GM OINT...G. TP SCH (15:00)
[2018-05-29 16:46] VITALS: BP_SYST 153
[2018-05-29] MEDS: EPOETIN ALFA 4,000 UNITS/ML VIAL SUBCUT SCH (17:23)
[2018-05-29] MEDS: AMPICILLIN SODIUM/SULBACTAM NA 1.5 GM in NS 50 ML IV SCH (22:01)
[2018-05-30] MEDS: INSULIN REGULAR, HUMAN 100 UNITS/ML, 10 ML VIAL (novoLIN R) SUBCUT PRN ×5 (00:19→23:51)
[2018-05-30 00:20] VITALS: BP_SYST 148
[2018-05-30 00:40] VITALS: BP_SYST 139
[2018-05-30] MEDS: 0.45% NACL 1,000 ML IV SCH (04:19)
[2018-05-30 07:17] LABS: BASOPHILS % (AUTO) 0.3 % (0.0-2.0); EOSINOPHILS # (AUTO) 0.1 K/uL (0.0-0.4); EOSINOPHILS % (AUTO) 1.6 % (0.0-4.0); HEMATOCRIT 26.3 % (36-48); HEMOGLOBIN 8.5 g/dL (12.0-16.0); LYMPHOCYTES # (AUTO) 1.2 K/uL (1.0-5.5); LYMPHOCYTES % (AUTO) 14.8 % (20.5-51.5); MEAN CORPUSCULAR HEMOGLOBIN 27 pg (27-31); MEAN CORPUSCULAR HGB CONC 33 % (32-36); MEAN CORPUSCULAR VOLUME 82 fL (79.0-98.0); MONOCYTES # (AUTO) 0.6 K/uL (0.0-1.0); MONOCYTES % (AUTO) 6.8 % (1.7-9.3); NEUTROPHILS # (AUTO) 6.3 K/uL (1.8-7.7); NEUTROPHILS % (AUTO) 76.5 % (40.0-70.0); PLATELET COUNT (AUTO) 125 K/uL (130-430); RED BLOOD CELL COUNT(AUTO) 3.23 MIL/uL (4.2-6.2); RED CELL DISTRIBUTION WIDTH 18.2 % (9.0-15.0); WHITE BLOOD COUNT (AUTO) 8.2 K/uL (4.8-10.8)
[2018-05-30 07:36] LABS: CALCIUM 8.1 mg/dL (8.4-11.0); CREATININE 1.1 mg/dL (0.55-1.30); POTASSIUM 4.8 mmol/L (3.5-5.1)
[2018-05-30 08:03] VITALS: BP_SYST 128
[2018-05-30] MEDS: BALSAM PERU/CASTOR OIL 60 GM OINT...G. TP SCH (08:53)
[2018-05-30] MEDS: AMPICILLIN SODIUM/SULBACTAM NA 1.5 GM in NS 50 ML IV SCH ×2 (08:58→20:28)
[2018-05-30] MEDS: MULTIVIT-MINERALS/FERROUS GLUC 15 ML UDC GT SCH ×2 (08:59→20:28)
[2018-05-30] MEDS: PREDNISONE 10 MG TABLET GT SCH (08:59)
[2018-05-30] MEDS: HEPARIN SODIUM,PORCINE 5000 UNITS/ML VIAL SUBCUT SCH ×2 (08:59→20:37)
[2018-05-30] MEDS: CHOLECALCIFEROL (VITAMIN D3) 2,000 UNIT TABLET GT SCH (08:59)
[2018-05-30] MEDS: ASCORBIC ACID 500 MG TABLET GT SCH (08:59)
[2018-05-30] MEDS: FOLIC ACID 1 MG TABLET GT SCH (08:59)
[2018-05-30] MEDS: PANTOPRAZOLE GRANULES PACKET 40 MG GT SCH ×2 (08:59→20:28)
[2018-05-30] MEDS: CALCIUM CARBONATE/VITAMIN D3 1 TAB TABLET GT SCH ×2 (09:00→20:28)
[2018-05-30] MEDS: LevETIRAcetam 500 MG/5 ML UDC ORAL LIQUID GT SCH ×2 (09:00→20:28)
[2018-05-30] MEDS: VANCOMYCIN HCL 1.25 GM/NS 250 ML IV SCH (12:11)
[2018-05-30 12:35] VITALS: BP_SYST 155
[2018-05-30 16:44] VITALS: BP_SYST 134
[2018-05-30 20:00] VITALS: BP_SYST 148
[2018-05-31 00:31] VITALS: BP_SYST 115
[2018-05-31] MEDS: 0.45% NACL 1,000 ML IV SCH (05:55)
[2018-05-31 06:27] LABS: CALCIUM 8.2 mg/dL (8.4-11.0); CREATININE 1.13 mg/dL (0.55-1.30); POTASSIUM 4.7 mmol/L (3.5-5.1)
[2018-05-31 06:37] LABS: ALBUMIN 1.3 g/dL (3.4-4.8); BASOPHILS % (AUTO) 0.3 % (0.0-2.0); EOSINOPHILS # (AUTO) 0.1 K/uL (0.0-0.4); EOSINOPHILS % (AUTO) 1.6 % (0.0-4.0); HEMATOCRIT 26.7 % (36-48); HEMOGLOBIN 8.5 g/dL (12.0-16.0); LYMPHOCYTES % (AUTO) 12.7 % (20.5-51.5); MEAN CORPUSCULAR HEMOGLOBIN 26 pg (27-31); MEAN CORPUSCULAR HGB CONC 32 % (32-36); MEAN CORPUSCULAR VOLUME 82 fL (79.0-98.0); MONOCYTES # (AUTO) 0.5 K/uL (0.0-1.0); MONOCYTES % (AUTO) 5.8 % (1.7-9.3); NEUTROPHILS # (AUTO) 6.5 K/uL (1.8-7.7); NEUTROPHILS % (AUTO) 79.6 % (40.0-70.0); PLATELET COUNT (AUTO) 123 K/uL (130-430); RED BLOOD CELL COUNT(AUTO) 3.26 MIL/uL (4.2-6.2); TOTAL BILIRUBIN 0.3 mg/dL (0.0-1.0); WHITE BLOOD COUNT (AUTO) 8.1 K/uL (4.8-10.8)
[2018-05-31] MEDS: PREDNISONE 10 MG TABLET GT SCH (08:22)
[2018-05-31] MEDS: PANTOPRAZOLE GRANULES PACKET 40 MG GT SCH ×2 (08:22→20:57)
[2018-05-31] MEDS: FOLIC ACID 1 MG TABLET GT SCH (08:23)
[2018-05-31] MEDS: CHOLECALCIFEROL (VITAMIN D3) 2,000 UNIT TABLET GT SCH (08:23)
[2018-05-31] MEDS: CALCIUM CARBONATE/VITAMIN D3 1 TAB TABLET GT SCH ×2 (08:23→20:57)
[2018-05-31] MEDS: MULTIVIT-MINERALS/FERROUS GLUC 15 ML UDC GT SCH ×2 (08:23→20:54)
[2018-05-31] MEDS: ASCORBIC ACID 500 MG TABLET GT SCH (08:23)
[2018-05-31] MEDS: AMPICILLIN SODIUM/SULBACTAM NA 1.5 GM in NS 50 ML IV SCH ×2 (08:24→20:50)
[2018-05-31] MEDS: LevETIRAcetam 500 MG/5 ML UDC ORAL LIQUID GT SCH ×2 (08:24→20:54)
[2018-05-31] MEDS: HEPARIN SODIUM,PORCINE 5000 UNITS/ML VIAL SUBCUT SCH ×2 (08:25→20:57)
[2018-05-31 11:23] VITALS: BP_SYST 117
[2018-05-31 12:34] VITALS: BP_SYST 143
[2018-05-31] MEDS: INSULIN REGULAR, HUMAN 100 UNITS/ML, 10 ML VIAL (novoLIN R) SUBCUT PRN ×3 (12:53→23:33)
[2018-05-31] MEDS: BALSAM PERU/CASTOR OIL 60 GM OINT...G. TP SCH (15:45)
[2018-05-31 16:26] VITALS: BP_SYST 122
[2018-05-31] MEDS: EPOETIN ALFA 4,000 UNITS/ML VIAL SUBCUT SCH (18:10)
[2018-05-31 20:00] VITALS: BP_SYST 138
[2018-05-31 23:23] VITALS: BP_SYST 100
[2018-05-31] MEDS: VANCOMYCIN HCL 1.25 GM/NS 250 ML IV SCH (23:33)
[2018-06-01] MEDS: INSULIN REGULAR, HUMAN 100 UNITS/ML, 10 ML VIAL (novoLIN R) SUBCUT PRN ×3 (05:45→17:28)
[2018-06-01] MEDS: 0.45% NACL 1,000 ML IV SCH (05:46)
[2018-06-01 06:29] LABS: CALCIUM 8.3 mg/dL (8.4-11.0); CREATININE 1.12 mg/dL (0.55-1.30); POTASSIUM 4.8 mmol/L (3.5-5.1)
[2018-06-01 06:34] LABS: BASOPHILS % (AUTO) 0.4 % (0.0-2.0); EOSINOPHILS # (AUTO) 0.1 K/uL (0.0-0.4); EOSINOPHILS % (AUTO) 1.4 % (0.0-4.0); HEMATOCRIT 25.2 % (36-48); HEMOGLOBIN 8.2 g/dL (12.0-16.0); LYMPHOCYTES # (AUTO) 1.3 K/uL (1.0-5.5); LYMPHOCYTES % (AUTO) 16.4 % (20.5-51.5); MEAN CORPUSCULAR HEMOGLOBIN 27 pg (27-31); MEAN CORPUSCULAR HGB CONC 32 % (32-36); MEAN CORPUSCULAR VOLUME 82 fL (79.0-98.0); MONOCYTES # (AUTO) 0.6 K/uL (0.0-1.0); MONOCYTES % (AUTO) 7.3 % (1.7-9.3); NEUTROPHILS # (AUTO) 5.7 K/uL (1.8-7.7); NEUTROPHILS % (AUTO) 74.5 % (40.0-70.0); PLATELET COUNT (AUTO) 129 K/uL (130-430); RED BLOOD CELL COUNT(AUTO) 3.08 MIL/uL (4.2-6.2); RED CELL DISTRIBUTION WIDTH 18.1 % (9.0-15.0); WHITE BLOOD COUNT (AUTO) 7.6 K/uL (4.8-10.8)
[2018-06-01 07:45] VITALS: BP_SYST 118
[2018-06-01] MEDS: BALSAM PERU/CASTOR OIL 60 GM OINT...G. TP SCH (09:00)
[2018-06-01] MEDS: PANTOPRAZOLE GRANULES PACKET 40 MG GT SCH ×2 (09:33→22:56)
[2018-06-01] MEDS: FOLIC ACID 1 MG TABLET GT SCH (09:33)
[2018-06-01] MEDS: CALCIUM CARBONATE/VITAMIN D3 1 TAB TABLET GT SCH ×2 (09:34→22:58)
[2018-06-01] MEDS: LevETIRAcetam 500 MG/5 ML UDC ORAL LIQUID GT SCH ×2 (09:34→22:57)
[2018-06-01] MEDS: PREDNISONE 10 MG TABLET GT SCH (09:34)
[2018-06-01] MEDS: ASCORBIC ACID 500 MG TABLET GT SCH (09:34)
[2018-06-01] MEDS: MULTIVIT-MINERALS/FERROUS GLUC 15 ML UDC GT SCH ×2 (09:34→22:58)
[2018-06-01] MEDS: CHOLECALCIFEROL (VITAMIN D3) 2,000 UNIT TABLET GT SCH (09:34)
[2018-06-01] MEDS: AMPICILLIN SODIUM/SULBACTAM NA 1.5 GM in NS 50 ML IV SCH ×2 (09:35→22:56)
[2018-06-01] MEDS: HEPARIN SODIUM,PORCINE 5000 UNITS/ML VIAL SUBCUT SCH (09:36)
[2018-06-01 13:35] LABS: TOTAL IRON BIND. CAPACITY 126 ug/dL (250-450)
[2018-06-01] MEDS: SOD FERRIC GLUC COMPLEX/SUC 125 MG in NS 100 ML IV SCH (15:06)
[2018-06-01 15:59] VITALS: BP_SYST 128
[2018-06-01 16:28] VITALS: BP_SYST 128
[2018-06-01 19:30] VITALS: BP_SYST 128
[2018-06-01 20:20] VITALS: BP_SYST 123
[2018-06-01] MEDS ORDERED: HEPARIN SODIUM,PORCINE 5000 UNITS/ML VIAL SUBCUT SCH (21:00)
[2018-06-01] MEDS ORDERED: HEPARIN SODIUM,PORCINE 5000 UNITS/ML VIAL SUBCUT ONE (22:00)
[2018-06-02 00:47] VITALS: BP_SYST 135
[2018-06-02 07:00] LABS: BASOPHILS % (AUTO) 0.4 % (0.0-2.0); EOSINOPHILS # (AUTO) 0.1 K/uL (0.0-0.4); EOSINOPHILS % (AUTO) 1.9 % (0.0-4.0); HEMATOCRIT 23.3 % (36-48); HEMOGLOBIN 7.5 g/dL (12.0-16.0); LYMPHOCYTES % (AUTO) 16.6 % (20.5-51.5); MEAN CORPUSCULAR HEMOGLOBIN 26 pg (27-31); MEAN CORPUSCULAR HGB CONC 32 % (32-36); MEAN CORPUSCULAR VOLUME 82 fL (79.0-98.0); MONOCYTES # (AUTO) 0.5 K/uL (0.0-1.0); MONOCYTES % (AUTO) 7.6 % (1.7-9.3); NEUTROPHILS # (AUTO) 4.5 K/uL (1.8-7.7); NEUTROPHILS % (AUTO) 73.5 % (40.0-70.0); PLATELET COUNT (AUTO) 101 K/uL (130-430); RED BLOOD CELL COUNT(AUTO) 2.84 MIL/uL (4.2-6.2); RED CELL DISTRIBUTION WIDTH 17.6 % (9.0-15.0); WHITE BLOOD COUNT (AUTO) 6.1 K/uL (4.8-10.8)
[2018-06-02] MEDS: 0.45% NACL 1,000 ML IV SCH (07:21)
[2018-06-02 07:24] LABS: CALCIUM 8.1 mg/dL (8.4-11.0); CREATININE 1.06 mg/dL (0.55-1.30); POTASSIUM 4.5 mmol/L (3.5-5.1)
[2018-06-02 07:30] LABS: ALBUMIN 1.2 g/dL (3.4-4.8); TOTAL BILIRUBIN 0.4 mg/dL (0.0-1.0)
[2018-06-02 08:02] VITALS: BP_SYST 122
[2018-06-02] MEDS: PANTOPRAZOLE GRANULES PACKET 40 MG GT SCH ×2 (08:18→21:06)
[2018-06-02] MEDS: MULTIVIT-MINERALS/FERROUS GLUC 15 ML UDC GT SCH ×2 (08:18→21:07)
[2018-06-02] MEDS: LevETIRAcetam 500 MG/5 ML UDC ORAL LIQUID GT SCH ×2 (08:18→21:06)
[2018-06-02] MEDS: CALCIUM CARBONATE/VITAMIN D3 1 TAB TABLET GT SCH ×2 (08:18→21:06)
[2018-06-02] MEDS: FOLIC ACID 1 MG TABLET GT SCH (08:18)
[2018-06-02] MEDS: CHOLECALCIFEROL (VITAMIN D3) 2,000 UNIT TABLET GT SCH (08:18)
[2018-06-02] MEDS: ASCORBIC ACID 500 MG TABLET GT SCH (08:18)
[2018-06-02] MEDS: PREDNISONE 10 MG TABLET GT SCH (08:18)
[2018-06-02] MEDS: AMPICILLIN SODIUM/SULBACTAM NA 1.5 GM in NS 50 ML IV SCH ×2 (08:18→21:10)
[2018-06-02] MEDS: HEPARIN SODIUM,PORCINE 5000 UNITS/ML VIAL SUBCUT SCH ×2 (08:19→21:09)
[2018-06-02] MEDS: BALSAM PERU/CASTOR OIL 60 GM OINT...G. TP SCH (09:29)
[2018-06-02 10:03] VITALS: BP_SYST 122
[2018-06-02 11:31] VITALS: BP_SYST 145
[2018-06-02] MEDS: INSULIN REGULAR, HUMAN 100 UNITS/ML, 10 ML VIAL (novoLIN R) SUBCUT PRN ×3 (11:52→23:43)
[2018-06-02] MEDS ORDERED: VANCOMYCIN HCL 1,250 MG in NS 250 ML IV SCH (14:15)
[2018-06-02] MEDS: SOD FERRIC GLUC COMPLEX/SUC 125 MG in NS 100 ML IV SCH (14:26)
[2018-06-02 15:26] VITALS: BP_SYST 133
[2018-06-02] MEDS: EPOETIN ALFA 4,000 UNITS/ML VIAL SUBCUT SCH (17:06)
[2018-06-02] MEDS: IPRATROPIUM/ALBUTEROL SULFATE 3 ML AMPUL.NEB (DUONEB) INH PRN (19:54)
[2018-06-02 23:34] VITALS: BP_SYST 134
[2018-06-03] MEDS: VANCOMYCIN HCL 1,250 MG in NS 250 ML IV SCH (05:22)
[2018-06-03 06:19] LABS: BASOPHILS # (AUTO) 0.1 K/uL (0.0-0.2); BASOPHILS % (AUTO) 0.9 % (0.0-2.0); EOSINOPHILS # (AUTO) 0.1 K/uL (0.0-0.4); EOSINOPHILS % (AUTO) 1.8 % (0.0-4.0); HEMATOCRIT 27.8 % (36-48); LYMPHOCYTES # (AUTO) 1.1 K/uL (1.0-5.5); LYMPHOCYTES % (AUTO) 15.2 % (20.5-51.5); MEAN CORPUSCULAR HEMOGLOBIN 27 pg (27-31); MEAN CORPUSCULAR HGB CONC 33 % (32-36); MEAN CORPUSCULAR VOLUME 81 fL (79.0-98.0); MONOCYTES # (AUTO) 0.4 K/uL (0.0-1.0); MONOCYTES % (AUTO) 6.1 % (1.7-9.3); NEUTROPHILS # (AUTO) 5.3 K/uL (1.8-7.7); PLATELET COUNT (AUTO) 156 K/uL (130-430); RED BLOOD CELL COUNT(AUTO) 3.41 MIL/uL (4.2-6.2); RED CELL DISTRIBUTION WIDTH 17.3 % (9.0-15.0)
[2018-06-03 06:46] LABS: CALCIUM 8.5 mg/dL (8.4-11.0); CREATININE 1.01 mg/dL (0.55-1.30); POTASSIUM 4.3 mmol/L (3.5-5.1)
[2018-06-03 07:56] VITALS: BP_SYST 130
[2018-06-03] MEDS: CHOLECALCIFEROL (VITAMIN D3) 2,000 UNIT TABLET GT SCH (08:49)
[2018-06-03] MEDS: PANTOPRAZOLE GRANULES PACKET 40 MG GT SCH ×2 (08:49→21:34)
[2018-06-03] MEDS: LevETIRAcetam 500 MG/5 ML UDC ORAL LIQUID GT SCH ×2 (08:50→21:33)
[2018-06-03] MEDS: MULTIVIT-MINERALS/FERROUS GLUC 15 ML UDC GT SCH ×2 (08:50→21:33)
[2018-06-03] MEDS: CALCIUM CARBONATE/VITAMIN D3 1 TAB TABLET GT SCH ×2 (08:50→21:33)
[2018-06-03] MEDS: PREDNISONE 10 MG TABLET GT SCH (08:50)
[2018-06-03] MEDS: ASCORBIC ACID 500 MG TABLET GT SCH (08:50)
[2018-06-03] MEDS: AMPICILLIN SODIUM/SULBACTAM NA 1.5 GM in NS 50 ML IV SCH ×2 (08:50→21:33)
[2018-06-03] MEDS: FOLIC ACID 1 MG TABLET GT SCH (08:50)
[2018-06-03] MEDS: HEPARIN SODIUM,PORCINE 5000 UNITS/ML VIAL SUBCUT SCH (08:51)
[2018-06-03] MEDS: BALSAM PERU/CASTOR OIL 60 GM OINT...G. TP SCH (08:52)
[2018-06-03] MEDS: INSULIN REGULAR, HUMAN 100 UNITS/ML, 10 ML VIAL (novoLIN R) SUBCUT PRN ×2 (11:37→17:10)
[2018-06-03 11:38] VITALS: BP_SYST 127
[2018-06-03] MEDS: 0.45% NACL 1,000 ML IV SCH (12:08)
[2018-06-03] MEDS: SOD FERRIC GLUC COMPLEX/SUC 125 MG in NS 100 ML IV SCH (13:36)
[2018-06-03 15:37] VITALS: BP_SYST 111
[2018-06-03 16:37] VITALS: BP_SYST 142
[2018-06-03 20:00] VITALS: BP_SYST 148
[2018-06-03] MEDS: IPRATROPIUM/ALBUTEROL SULFATE 3 ML AMPUL.NEB (DUONEB) INH PRN (20:32)
[2018-06-04 00:17] VITALS: BP_SYST 141
[2018-06-04] MEDS: 0.45% NACL 1,000 ML IV SCH (05:14)
[2018-06-04 05:55] LABS: CALCIUM 8.1 mg/dL (8.4-11.0); CREATININE 0.98 mg/dL (0.55-1.30); POTASSIUM 4.3 mmol/L (3.5-5.1)
[2018-06-04 06:09] LABS: BASOPHILS % (AUTO) 0.3 % (0.0-2.0); EOSINOPHILS # (AUTO) 0.1 K/uL (0.0-0.4); EOSINOPHILS % (AUTO) 1.6 % (0.0-4.0); HEMATOCRIT 26.4 % (36-48); HEMOGLOBIN 8.5 g/dL (12.0-16.0); LYMPHOCYTES # (AUTO) 1.2 K/uL (1.0-5.5); LYMPHOCYTES % (AUTO) 17.9 % (20.5-51.5); MEAN CORPUSCULAR HEMOGLOBIN 26 pg (27-31); MEAN CORPUSCULAR HGB CONC 32 % (32-36); MEAN CORPUSCULAR VOLUME 82 fL (79.0-98.0); MONOCYTES # (AUTO) 0.4 K/uL (0.0-1.0); MONOCYTES % (AUTO) 6.3 % (1.7-9.3); NEUTROPHILS # (AUTO) 4.9 K/uL (1.8-7.7); NEUTROPHILS % (AUTO) 73.9 % (40.0-70.0); PLATELET COUNT (AUTO) 144 K/uL (130-430); RED BLOOD CELL COUNT(AUTO) 3.23 MIL/uL (4.2-6.2); WHITE BLOOD COUNT (AUTO) 6.7 K/uL (4.8-10.8)
[2018-06-04 07:49] VITALS: BP_SYST 125
[2018-06-04] MEDS: LevETIRAcetam 500 MG/5 ML UDC ORAL LIQUID GT SCH ×2 (09:18→20:51)
[2018-06-04] MEDS: AMPICILLIN SODIUM/SULBACTAM NA 1.5 GM in NS 50 ML IV SCH ×2 (09:18→20:51)
[2018-06-04] MEDS: PANTOPRAZOLE GRANULES PACKET 40 MG GT SCH ×2 (09:18→20:51)
[2018-06-04] MEDS: ASCORBIC ACID 500 MG TABLET GT SCH (09:19)
[2018-06-04] MEDS: PREDNISONE 10 MG TABLET GT SCH (09:19)
[2018-06-04] MEDS: CALCIUM CARBONATE/VITAMIN D3 1 TAB TABLET GT SCH ×2 (09:19→20:51)
[2018-06-04] MEDS: CHOLECALCIFEROL (VITAMIN D3) 2,000 UNIT TABLET GT SCH (09:19)
[2018-06-04] MEDS: BALSAM PERU/CASTOR OIL 60 GM OINT...G. TP SCH (09:19)
[2018-06-04] MEDS: FOLIC ACID 1 MG TABLET GT SCH (09:19)
[2018-06-04] MEDS: MULTIVIT-MINERALS/FERROUS GLUC 15 ML UDC GT SCH ×2 (09:21→20:51)
[2018-06-04 12:02] VITALS: BP_SYST 119
[2018-06-04] MEDS: INSULIN REGULAR, HUMAN 100 UNITS/ML, 10 ML VIAL (novoLIN R) SUBCUT PRN ×3 (12:20→23:56)
[2018-06-04 16:02] VITALS: BP_SYST 123
[2018-06-04 20:55] VITALS: BP_SYST 127
[2018-06-05] VITALS (8 sets, daily range): BP systolic 131–156
[2018-06-05] MEDS: 0.45% NACL 1,000 ML IV SCH (05:13)
[2018-06-05] MEDS: VANCOMYCIN HCL 1,250 MG in NS 250 ML IV SCH (05:13)
[2018-06-05 06:26] LABS: BASOPHILS % (AUTO) 0.6 % (0.0-2.0); EOSINOPHILS # (AUTO) 0.1 K/uL (0.0-0.4); EOSINOPHILS % (AUTO) 2.1 % (0.0-4.0); HEMATOCRIT 27.3 % (36-48); HEMOGLOBIN 8.9 g/dL (12.0-16.0); LYMPHOCYTES # (AUTO) 1.3 K/uL (1.0-5.5); LYMPHOCYTES % (AUTO) 21.3 % (20.5-51.5); MEAN CORPUSCULAR HEMOGLOBIN 26 pg (27-31); MEAN CORPUSCULAR HGB CONC 32 % (32-36); MEAN CORPUSCULAR VOLUME 81 fL (79.0-98.0); MONOCYTES # (AUTO) 0.4 K/uL (0.0-1.0); MONOCYTES % (AUTO) 6.6 % (1.7-9.3); NEUTROPHILS # (AUTO) 4.3 K/uL (1.8-7.7); NEUTROPHILS % (AUTO) 69.4 % (40.0-70.0); PLATELET COUNT (AUTO) 133 K/uL (130-430); RED BLOOD CELL COUNT(AUTO) 3.37 MIL/uL (4.2-6.2); RED CELL DISTRIBUTION WIDTH 17.2 % (9.0-15.0); WHITE BLOOD COUNT (AUTO) 6.2 K/uL (4.8-10.8)
[2018-06-05 06:27] LABS: CALCIUM 8.3 mg/dL (8.4-11.0); CREATININE 0.97 mg/dL (0.55-1.30); POTASSIUM 4.7 mmol/L (3.5-5.1)
[2018-06-05] MEDS: ASCORBIC ACID 500 MG TABLET GT SCH (08:55)
[2018-06-05] MEDS: LevETIRAcetam 500 MG/5 ML UDC ORAL LIQUID GT SCH ×2 (08:55→21:16)
[2018-06-05] MEDS: CALCIUM CARBONATE/VITAMIN D3 1 TAB TABLET GT SCH ×2 (08:55→21:16)
[2018-06-05] MEDS: CHOLECALCIFEROL (VITAMIN D3) 2,000 UNIT TABLET GT SCH (08:55)
[2018-06-05] MEDS: MULTIVIT-MINERALS/FERROUS GLUC 15 ML UDC GT SCH ×2 (08:55→21:15)
[2018-06-05] MEDS: FOLIC ACID 1 MG TABLET GT SCH (08:55)
[2018-06-05] MEDS: BALSAM PERU/CASTOR OIL 60 GM OINT...G. TP SCH (08:56)
[2018-06-05] MEDS: PREDNISONE 10 MG TABLET GT SCH (08:56)
[2018-06-05] MEDS: PANTOPRAZOLE GRANULES PACKET 40 MG GT SCH ×2 (08:56→21:41)
[2018-06-05] MEDS: INSULIN REGULAR, HUMAN 100 UNITS/ML, 10 ML VIAL (novoLIN R) SUBCUT PRN ×2 (11:47→17:12)
[2018-06-05] MEDS: SOD FERRIC GLUC COMPLEX/SUC 125 MG in NS 100 ML IV SCH (12:17)
[2018-06-05] MEDS ORDERED: LACTOBACILLUS RHAMNOSUS GG 1 CAP CAPSULE GT ONE (12:45)
[2018-06-05] MEDS: AMOXICILLIN 500 MG CAPSULE PO SCH ×2 (13:33→21:16)
[2018-06-05] MEDS: EPOETIN ALFA 4,000 UNITS/ML VIAL SUBCUT SCH (17:13)
[2018-06-05] MEDS: LACTOBACILLUS RHAMNOSUS GG 1 CAP CAPSULE GT SCH (21:16)
[2018-06-06] MEDS: AMOXICILLIN 500 MG CAPSULE PO SCH ×3 (05:46→21:22)
[2018-06-06 06:28] LABS: BASOPHILS % (AUTO) 0.3 % (0.0-2.0); EOSINOPHILS # (AUTO) 0.1 K/uL (0.0-0.4); EOSINOPHILS % (AUTO) 1.4 % (0.0-4.0); HEMOGLOBIN 8.1 g/dL (12.0-16.0); LYMPHOCYTES # (AUTO) 1.2 K/uL (1.0-5.5); LYMPHOCYTES % (AUTO) 16.3 % (20.5-51.5); MEAN CORPUSCULAR HEMOGLOBIN 26 pg (27-31); MEAN CORPUSCULAR HGB CONC 32 % (32-36); MEAN CORPUSCULAR VOLUME 82 fL (79.0-98.0); MONOCYTES # (AUTO) 0.4 K/uL (0.0-1.0); MONOCYTES % (AUTO) 5.3 % (1.7-9.3); NEUTROPHILS # (AUTO) 5.6 K/uL (1.8-7.7); NEUTROPHILS % (AUTO) 76.7 % (40.0-70.0); PLATELET COUNT (AUTO) 168 K/uL (130-430); RED BLOOD CELL COUNT(AUTO) 3.06 MIL/uL (4.2-6.2); RED CELL DISTRIBUTION WIDTH 17.1 % (9.0-15.0); WHITE BLOOD COUNT (AUTO) 7.4 K/uL (4.8-10.8)
[2018-06-06 06:41] LABS: CALCIUM 8.4 mg/dL (8.4-11.0); CREATININE 0.96 mg/dL (0.55-1.30); POTASSIUM 4.2 mmol/L (3.5-5.1)
[2018-06-06 07:41] VITALS: BP_SYST 119
[2018-06-06] MEDS: 0.45% NACL 1,000 ML IV SCH (07:57)
[2018-06-06] MEDS: PREDNISONE 10 MG TABLET GT SCH (09:39)
[2018-06-06] MEDS: FOLIC ACID 1 MG TABLET GT SCH (09:39)
[2018-06-06] MEDS: LACTOBACILLUS RHAMNOSUS GG 1 CAP CAPSULE GT SCH ×2 (09:39→20:57)
[2018-06-06] MEDS: MULTIVIT-MINERALS/FERROUS GLUC 15 ML UDC GT SCH ×2 (09:39→20:58)
[2018-06-06] MEDS: ASCORBIC ACID 500 MG TABLET GT SCH (09:39)
[2018-06-06] MEDS: CALCIUM CARBONATE/VITAMIN D3 1 TAB TABLET GT SCH ×2 (09:39→20:58)
[2018-06-06] MEDS: CHOLECALCIFEROL (VITAMIN D3) 2,000 UNIT TABLET GT SCH (09:39)
[2018-06-06] MEDS: BALSAM PERU/CASTOR OIL 60 GM OINT...G. TP SCH (09:50)
[2018-06-06] MEDS: LevETIRAcetam 500 MG/5 ML UDC ORAL LIQUID GT SCH ×2 (09:50→20:57)
[2018-06-06] MEDS: PANTOPRAZOLE GRANULES PACKET 40 MG GT SCH ×2 (09:50→20:58)
[2018-06-06] MEDS: SOD FERRIC GLUC COMPLEX/SUC 125 MG in NS 100 ML IV SCH (11:08)
[2018-06-06 12:00] VITALS: BP_SYST 125
[2018-06-06] MEDS ORDERED: SILVER SULFADIAZINE 1%, 25 GM TOPICAL CREAM (SSD) TP ONE (13:00)
[2018-06-06 16:19] VITALS: BP_SYST 132
[2018-06-06 20:30] VITALS: BP_SYST 152
[2018-06-06] MEDS: SILVER SULFADIAZINE 1%, 25 GM TOPICAL CREAM (SSD) TP SCH (21:01)
[2018-06-07 01:43] VITALS: BP_SYST 135
[2018-06-07] MEDS: AMOXICILLIN 500 MG CAPSULE PO SCH ×3 (05:50→21:31)
[2018-06-07] MEDS: VANCOMYCIN HCL 1,250 MG in NS 250 ML IV SCH (05:52)
[2018-06-07] MEDS: INSULIN REGULAR, HUMAN 100 UNITS/ML, 10 ML VIAL (novoLIN R) SUBCUT PRN ×2 (06:35→11:44)
[2018-06-07 06:40] LABS: POTASSIUM 4.2 mmol/L (3.5-5.1)
[2018-06-07 06:41] LABS: CALCIUM 8.5 mg/dL (8.4-11.0); CREATININE 0.89 mg/dL (0.55-1.30)
[2018-06-07] MEDS: 0.45% NACL 1,000 ML IV SCH (06:43)
[2018-06-07 07:07] LABS: BASOPHILS % (AUTO) 0.4 % (0.0-2.0); EOSINOPHILS # (AUTO) 0.1 K/uL (0.0-0.4); EOSINOPHILS % (AUTO) 1.1 % (0.0-4.0); HEMATOCRIT 25.3 % (36-48); HEMOGLOBIN 8.4 g/dL (12.0-16.0); LYMPHOCYTES # (AUTO) 1.1 K/uL (1.0-5.5); LYMPHOCYTES % (AUTO) 13.4 % (20.5-51.5); MEAN CORPUSCULAR HEMOGLOBIN 27 pg (27-31); MEAN CORPUSCULAR HGB CONC 33 % (32-36); MEAN CORPUSCULAR VOLUME 81 fL (79.0-98.0); MONOCYTES # (AUTO) 0.5 K/uL (0.0-1.0); MONOCYTES % (AUTO) 5.9 % (1.7-9.3); NEUTROPHILS # (AUTO) 6.6 K/uL (1.8-7.7); NEUTROPHILS % (AUTO) 79.2 % (40.0-70.0); PLATELET COUNT (AUTO) 156 K/uL (130-430); RED BLOOD CELL COUNT(AUTO) 3.11 MIL/uL (4.2-6.2); RED CELL DISTRIBUTION WIDTH 16.6 % (9.0-15.0); WHITE BLOOD COUNT (AUTO) 8.4 K/uL (4.8-10.8)
[2018-06-07 08:00] VITALS: BP_SYST 113
[2018-06-07] MEDS: MULTIVIT-MINERALS/FERROUS GLUC 15 ML UDC GT SCH ×2 (09:13→21:30)
[2018-06-07] MEDS: ASCORBIC ACID 500 MG TABLET GT SCH (09:13)
[2018-06-07] MEDS: LevETIRAcetam 500 MG/5 ML UDC ORAL LIQUID GT SCH ×2 (09:13→21:30)
[2018-06-07] MEDS: PANTOPRAZOLE GRANULES PACKET 40 MG GT SCH ×2 (09:13→21:38)
[2018-06-07] MEDS: CALCIUM CARBONATE/VITAMIN D3 1 TAB TABLET GT SCH ×2 (09:13→21:30)
[2018-06-07] MEDS: LACTOBACILLUS RHAMNOSUS GG 1 CAP CAPSULE GT SCH ×2 (09:14→21:30)
[2018-06-07] MEDS: PREDNISONE 10 MG TABLET GT SCH (09:14)
[2018-06-07] MEDS: CHOLECALCIFEROL (VITAMIN D3) 2,000 UNIT TABLET GT SCH (09:14)
[2018-06-07] MEDS: SILVER SULFADIAZINE 1%, 25 GM TOPICAL CREAM (SSD) TP SCH ×2 (09:14→21:32)
[2018-06-07] MEDS: FOLIC ACID 1 MG TABLET GT SCH (09:14)
[2018-06-07] MEDS: BALSAM PERU/CASTOR OIL 60 GM OINT...G. TP SCH (09:16)
[2018-06-07 11:34] VITALS: BP_SYST 128
[2018-06-07] MEDS: SOD FERRIC GLUC COMPLEX/SUC 125 MG in NS 100 ML IV SCH (11:42)
[2018-06-07 15:54] VITALS: BP_SYST 132
[2018-06-07 16:00] VITALS: BP_SYST 130
[2018-06-07] MEDS: EPOETIN ALFA 4,000 UNITS/ML VIAL SUBCUT SCH (17:53)
[2018-06-07 20:00] VITALS: BP_SYST 139
[2018-06-08 00:11] VITALS: BP_SYST 129
[2018-06-08] MEDS: 0.45% NACL 1,000 ML IV SCH (06:17)
[2018-06-08] MEDS: AMOXICILLIN 500 MG CAPSULE PO SCH ×2 (06:17→13:39)
[2018-06-08 06:32] LABS: BASOPHILS % (AUTO) 0.3 % (0.0-2.0); EOSINOPHILS # (AUTO) 0.1 K/uL (0.0-0.4); EOSINOPHILS % (AUTO) 1.1 % (0.0-4.0); HEMATOCRIT 25.8 % (36-48); HEMOGLOBIN 8.4 g/dL (12.0-16.0); LYMPHOCYTES # (AUTO) 1.1 K/uL (1.0-5.5); MEAN CORPUSCULAR HEMOGLOBIN 26 pg (27-31); MEAN CORPUSCULAR HGB CONC 32 % (32-36); MEAN CORPUSCULAR VOLUME 81 fL (79.0-98.0); MONOCYTES # (AUTO) 0.5 K/uL (0.0-1.0); MONOCYTES % (AUTO) 6.3 % (1.7-9.3); NEUTROPHILS # (AUTO) 6.4 K/uL (1.8-7.7); NEUTROPHILS % (AUTO) 78.3 % (40.0-70.0); PLATELET COUNT (AUTO) 155 K/uL (130-430); RED BLOOD CELL COUNT(AUTO) 3.18 MIL/uL (4.2-6.2); RED CELL DISTRIBUTION WIDTH 16.8 % (9.0-15.0); WHITE BLOOD COUNT (AUTO) 8.1 K/uL (4.8-10.8)
[2018-06-08 06:40] LABS: CALCIUM 8.5 mg/dL (8.4-11.0); CREATININE 0.87 mg/dL (0.55-1.30); POTASSIUM 4.2 mmol/L (3.5-5.1); VANCOMYCIN,RANDOM 25.4 ug/mL
[2018-06-08 08:14] VITALS: BP_SYST 144
[2018-06-08 09:48] VITALS: BP_SYST 144
[2018-06-08] MEDS: CALCIUM CARBONATE/VITAMIN D3 1 TAB TABLET GT SCH (10:16)
[2018-06-08] MEDS: MULTIVIT-MINERALS/FERROUS GLUC 15 ML UDC GT SCH (10:16)
[2018-06-08] MEDS: LevETIRAcetam 500 MG/5 ML UDC ORAL LIQUID GT SCH (10:16)
[2018-06-08] MEDS: LACTOBACILLUS RHAMNOSUS GG 1 CAP CAPSULE GT SCH (10:16)
[2018-06-08] MEDS: CHOLECALCIFEROL (VITAMIN D3) 2,000 UNIT TABLET GT SCH (10:16)
[2018-06-08] MEDS: PANTOPRAZOLE GRANULES PACKET 40 MG GT SCH (10:17)
[2018-06-08] MEDS: ASCORBIC ACID 500 MG TABLET GT SCH (10:17)
[2018-06-08] MEDS: PREDNISONE 10 MG TABLET GT SCH (10:17)
[2018-06-08] MEDS: FOLIC ACID 1 MG TABLET GT SCH (10:17)
[2018-06-08] MEDS: BALSAM PERU/CASTOR OIL 60 GM OINT...G. TP SCH (10:20)
[2018-06-08] MEDS: SILVER SULFADIAZINE 1%, 25 GM TOPICAL CREAM (SSD) TP SCH (10:20)
[2018-06-08 12:00] VITALS: BP_SYST 136
[2018-06-08] MEDS ORDERED: EPOE40003 SUBCUT (12:19)
[2018-06-08] MEDS ORDERED: AMOX500C2 PO (12:19)
[2018-06-08] MEDS ORDERED: Vancomycin Per Pharmacy XX (12:19)
[2018-06-08] MEDS: INSULIN REGULAR, HUMAN 100 UNITS/ML, 10 ML VIAL (novoLIN R) SUBCUT PRN ×2 (13:50→17:38)
[2018-06-08 16:54] VITALS: BP_SYST 123
== END 2018-06-08 19:05 | disposition home health service (06) | DRG 720 ==
LOC: SED 23:33 → STU 05-15 04:33
PROVIDERS: ADMIT Internal Medicine; ATTEND Internal Medicine
PROC: 30233N1 Transfusion of Nonautologous Red Blood Cells into Peripheral Vein, Percutaneous Approach (ICD-10-PCS; 2018-05-15)
PROC: 0B21XFZ Change Tracheostomy Device in Trachea, External Approach (ICD-10-PCS; 2018-05-17)
PROC: 0D20XUZ Change Feeding Device in Upper Intestinal Tract, External Approach (ICD-10-PCS; 2018-05-19)
PROC: 0JB70ZZ Excision of Back Subcutaneous Tissue and Fascia, Open Approach (ICD-10-PCS; 2018-05-21)
PROC: 5A1955Z Respiratory Ventilation, Greater than 96 Consecutive Hours (ICD-10-PCS; principal; 2018-05-27)
DX: A41.81 Sepsis due to Enterococcus (principal); N17.0 Acute kidney failure with tubular necrosis; J96.20 Acute and chronic respiratory failure, unspecified whether with hypoxia or hypercapnia; E43 Unspecified severe protein-calorie malnutrition; G82.50 Quadriplegia, unspecified; Z99.11 Dependence on respirator [ventilator] status; G93.41 Metabolic encephalopathy; L89.154 Pressure ulcer of sacral region, stage 4; D69.6 Thrombocytopenia, unspecified; L89.324 Pressure ulcer of left buttock, stage 4; E11.22 Type 2 diabetes mellitus with diabetic chronic kidney disease; L89.314 Pressure ulcer of right buttock, stage 4; E11.52 Type 2 diabetes mellitus with diabetic peripheral angiopathy with gangrene; R65.20 Severe sepsis without septic shock; D63.1 Anemia in chronic kidney disease; E78.5 Hyperlipidemia, unspecified; E86.0 Dehydration; E87.0 Hyperosmolality and hypernatremia; E87.5 Hyperkalemia; G40.909 Epilepsy, unspecified, not intractable, without status epilepticus; I48.2 Chronic atrial fibrillation; N18.9 Chronic kidney disease, unspecified; N39.0 Urinary tract infection, site not specified; R13.12 Dysphagia, oropharyngeal phase; K92.2 Gastrointestinal hemorrhage, unspecified; K94.23 Gastrostomy malfunction; E11.65 Type 2 diabetes mellitus with hyperglycemia; K56.7 Ileus, unspecified; T38.0X5A Adverse effect of glucocorticoids and synthetic analogues, initial encounter; J44.9 Chronic obstructive pulmonary disease, unspecified; I25.10 Atherosclerotic heart disease of native coronary artery without angina pectoris; N31.9 Neuromuscular dysfunction of bladder, unspecified; K94.09 Other complications of colostomy; I12.9 Hypertensive chronic kidney disease with stage 1 through stage 4 chronic kidney disease, or unspecified chronic kidney disease; Y83.8 Other surgical procedures as the cause of abnormal reaction of the patient, or of later complication, without mention of misadventure at the time of the procedure; Y73.8 Miscellaneous gastroenterology and urology devices associated with adverse incidents, not elsewhere classified; M86.68 Other chronic osteomyelitis, other site; E11.21 Type 2 diabetes mellitus with diabetic nephropathy; I95.9 Hypotension, unspecified; Z79.899 Other long term (current) drug therapy; Z79.4 Long term (current) use of insulin; I69.354 Hemiplegia and hemiparesis following cerebral infarction affecting left non-dominant side; Z74.01 Bed confinement status; I69.391 Dysphagia following cerebral infarction; Y92.89 Other specified places as the place of occurrence of the external cause
CPT/HCPCS: 36415; 71045; 74240-TC; 80048; 80053; 80202-TC; 81000-TC; 82272; 82533; 82962; 83540-TC; 83550-TC; 83605; 84484; 85007; 85025; 85027; 85610-TC; 85730-TC; 86886; 86900; 86901; 86920; 87040-TC; 87081; 87086; 87186-TC; 88302; 93005; 93970; 94002; 94003; 94640; 94760; 96361; 96365; 96375; 97110-GP; 97530-GP; 99291; A5061; C9113; G0378; J0290; J0295; J0885; J1030; J1644; J1815; J1940; J1956; J2405; J2543; J2704; J2916; J2930; J3010; J3370; J7030; J7040; J7050; J7060; J7120; J7512; J7620; P9021; P9046; Q9963; Q9964

== ENCOUNTER 2018-06-23 14:03 | Inpatient (IN) | payer OTHER, BC ==
[2018-06-23] VITALS (9 sets, daily range): BP systolic 131–158
[~2018-06-23] VITALS: Ht 160 cm; Wt 74.8 kg
[~2018-06-23 14:03] MED LIST changes: +ACET-2634 GT; +AMOX500C2 PO; +CALC-823 GT; +CAT.1 GT; +COLL100 GT; +CRAN1CAP2 GT; +EPOE40003 SUBCUT; +FERR220S6 GT; +FORM20VI IH; +GLUC1VIA4 IJ; +HYDR-4272 GT; -L.RH1CAP GT; -NEUTPHOSP GT; +OSCD500 GT; +Vancomycin Per Pharmacy XX
--- NOTE | 2018-06-23 14:39 | NUR ---
Placed in room 01 . Placed on monitor car operator, blood pressure machine and pulse oximeter. To gown for exam. Side rails up. Report given to Hemant CARMONA.
--- NOTE | 2018-06-23 14:45 | NUR ---
Patient comes from home where she lives with her daughter, patient is AOx1, non verbal and non ambulatory. Daughter states that she was told by her mothers MD to send patient to ER due to labs indicating low Hbg value. Patient has GTube, Trach to vent, Hernandez Cath, Various wounds, colostomy. Daughter states that she was here in hospital about 2 weeks ago for same condition. No other complaint or injury at this time.
--- NOTE | 2018-06-23 15:13 | NUR ---
DR BUSTOS at bedside for ER evaluation.
[2018-06-23 15:37] LABS: MEAN CORPUSCULAR HEMOGLOBIN 25 pg (27-31); MEAN CORPUSCULAR HGB CONC 32 % (32-36); MEAN CORPUSCULAR VOLUME 80 fL (79.0-98.0); PLATELET COUNT (AUTO) 84 K/uL (130-430); RED BLOOD CELL COUNT(AUTO) 2.73 MIL/uL (4.2-6.2); RED CELL DISTRIBUTION WIDTH 16.4 % (9.0-15.0); WHITE BLOOD COUNT (AUTO) 11.8 K/uL (4.8-10.8)
[2018-06-23 15:45] LABS: CALCIUM 9.3 mg/dL (8.4-11.0); CREATININE 0.92 mg/dL (0.55-1.30); POTASSIUM 4.5 mmol/L (3.5-5.1)
[2018-06-23 15:49] LABS: PROTHROMBIN TIME 10.3 SECS (9.5-12.5)
[2018-06-23 15:50] LABS: ALBUMIN 1.8 g/dL (3.4-4.8); TOTAL BILIRUBIN 0.5 mg/dL (0.0-1.0)
[2018-06-23 15:52] LABS: HEMATOCRIT 21.8 % (36-48); HEMOGLOBIN 6.9 g/dL (12.0-16.0)
[2018-06-23 16:12] LABS: BAND % (MANUAL) 0 % (0-6); BASOPHILS % (MANUAL) 0 % (0-2); EOSINOPHILS % (MANUAL) 1 % (0-7); LYMPHOCYTES % (MANUAL) 9 % (20-46); MONOCYTES % (MANUAL) 4 % (0-11)
--- NOTE | 2018-06-23 16:14 | NUR ---
Patient resting in bed with daughter at bedside, no signs of distress noted, will continue to monitor.
[2018-06-23] MEDS ORDERED: ACETAMINOPHEN 500 MG TABLET GT PRN (17:15)
[2018-06-23] MEDS ORDERED: NON-FORMULARY MEDICATION (Hydrocodone/Acetaminophen (Norco 5-325 Tablet) 1 EACH) GT SCH (17:15)
[2018-06-23] MEDS ORDERED: CALCIUM CARBONATE/VITAMIN D3 1 TAB TABLET GT SCH (17:15)
[2018-06-23] MEDS ORDERED: NACL 0.9% 1,000 ML IV ONE (17:15)
[2018-06-23] MEDS ORDERED: DEXTROSE 50% JECT 50 ML DISP.SYRIN IVP PRN (17:15)
[2018-06-23] MEDS ORDERED: cloNIDine HCL 0.1 MG TABLET GT SCH (17:15)
[2018-06-23] MEDS ORDERED: AMOXICILLIN 500 MG CAPSULE PO ONE (17:15)
[2018-06-23] MEDS ORDERED: DOCUSATE SODIUM 100 MG/10 ML UDC GT SCH (17:15)
[2018-06-23] MEDS ORDERED: IPRATROPIUM/ALBUTEROL SULFATE 3 ML AMPUL.NEB (DUONEB) INH PRN (17:15)
[2018-06-23] MEDS ORDERED: GLUCAGON HCL 1 MG IJ SCH (17:15)
--- NOTE | 2018-06-23 17:39 | NUR ---
ADMISSION NOTE Received patient from ER via phong, received report from DIRECTOR OF BILLING. Patient admitted with diagnosis of ABNORMAL LABS. Patient oriented to hospital routine, call light, toileting and safety-patient verbalized understanding.
--- NOTE | 2018-06-23 17:45 | NUR ---
Patient admitted to care of DR BYRNES . Admitted to [facility] unit. Patient transferred on ER [facility] with continuous portable monitoring, accompanied by family, RN, and 2 RT, patient placed in [facility] bed 114A, connected to continuous monitoring, patient tolerated well with minimal discomfort. Belongings list completed. Summary report printed. SBAR report given at bedside and plan of care endorsed to MST RN.
--- NOTE | 2018-06-23 19:30 | NUR ---
OPENING NOTES Patient and bedside report was received from day shift nurse. Patient is awake, mechanically vented via trach, resting in bed with no s/s of acute distress. Right upper arm PICC is in place, dressing was changed/dated on 06/20/18. Hernandez catheter draining urine by gravity, pending to be changed per hospital protocol. Patient has a sacral wound, dressing is still intact, photos and wound care pending. Order for wound vac was given to powerhouse helper, KRISTINE Dickey. Plan of care reviewed but patient is unable to verbalize understanding due to condition. Safety, seizure, and isolation precautions are in place. Will monitor.
--- NOTE | 2018-06-23 19:30 | NUR ---
Rounds comfortable in bed. report given to caterina. suction secretion,sputum sample sent to lab. mrsa screening done. turned to sides.
--- NOTE | 2018-06-23 19:30 | NUR ---
MRSA NARES SENT TO LAB Patient's specimen for MRSA nares was sent to lab for testing.
--- NOTE | 2018-06-23 20:00 | NUR ---
DR. FOX CALLED Dr. Fox, food demonstrator for Dr. Baig called to ask about patient's condition. Reported to Dr. Fox that patient is tolerating vent settings: AC 14, TV 500, FIO2 30%, PEEP 5. No new orders were received.
--- NOTE | 2018-06-23 20:15 | NUR ---
BT INITIATION: Consent signed per PATIENT'S DAUGHTER agreeing to administration of blood. Blood has been type and crossmatched. Blood sent from blood bank. Information on unit of blood checked against patient wristband at bedside by two nurses. All information matches. Patient or responsible libertarian informed of potential complications associated with blood transfusion. Informed of possible transfusion reaction symptoms. Aware of need to notify nurse at once of itching, shortness of breath, flushing, feeling of impending doom, or other symptoms not previously present. Vital signs taken within 5 minutes prior to initiation of transfusion. RN will remain with patient for first 15 minutes of transfusion at which time vital signs will be re-assessed. Addendum: 06/24/18 at 0420 by Beatris Munguia RN WITNESSED AT BEDSIDE WITH KRISTINE HUANG
[2018-06-23] MEDS: CALCIUM CARBONATE/VITAMIN D3 1 TAB TABLET GT SCH (20:17)
[2018-06-23] MEDS: LACTULOSE 20 GM/30 ML UDC GT SCH (20:17)
[2018-06-23] MEDS: METOCLOPRAMIDE HCL 10 MG/10 ML UDC GT SCH (20:17)
[2018-06-23] MEDS: SOD FERRIC GLUC COMPLEX/SUC 125 MG in NS 100 ML IV SCH (20:19)
--- NOTE | 2018-06-23 20:19 | NUR ---
IV FLUIDS/FERRLECIT Patient's IVF and order for Ferrlecit infusing as ordered. See EMAR for details.
--- NOTE | 2018-06-23 20:21 | NUR ---
ACCUCHECK Patient's blood sugar is 145; no insulin was administered per sliding scale order. Will monitor.
[2018-06-23] MEDS ORDERED: SOD FERRIC GLUC COMPLEX/SUC 62.5 MG/5 ML VIAL (FERRLECIT) IV ONE (20:24)
--- NOTE | 2018-06-23 20:30 | NUR ---
15 MINUTES AFTER BT INITIATION Tolerating blood transfusion with no adverse reaction noted. Vital signs: 98.1F temp, pulse 83, 20 respirations, 158/84 bp. Will monitor.
--- NOTE | 2018-06-23 20:38 | NUR ---
CONSULTATION PAGED/CALLED Reason for Consultation: RF Person Who was Notified: ELSY Consulting Physician: KASSANDRA SHEPHERD ; MACHINE OPERATOR ASSISTANT-DR. BARRERA [employer] Skilled Maintenance Supervisor Specialty: PULMO Ordering Physician: DR. BYRNES
[2018-06-23] MEDS: LevETIRAcetam 500 MG/5 ML UDC ORAL LIQUID GT SCH (21:00)
--- NOTE | 2018-06-23 21:45 | NUR ---
SPOKE WITH PHARMACY RE: MARYJANE Reported patient's vancomycin random level of 25.7 to Feb, formerly [facility] [phone]. She stated she will have pharmacy to follow up in the morning and that the patient will not receive a dose tonight. Charge nurse, KRISTINE Jaramillo also aware.
--- NOTE | 2018-06-23 21:55 | NUR ---
SCDS SCDS applied as ordered to bilateral lower extremities.
[2018-06-23] MEDS ORDERED: AMOXICILLIN 500 MG CAPSULE PO SCH (22:00)
--- NOTE | 2018-06-23 22:00 | NUR ---
TUBEFEEDING STARTED Patient's g-tubefeeding of Glucerna 1.2 infusing at ordered rate of 70 mls/hr. No residuals noted. Will monitor.
--- NOTE | 2018-06-23 22:30 | NUR ---
FIRST UNIT OF BLOOD TRANSFUSION COMPLETE Tolerated first unit of blood transfusion with no adverse reaction noted. Vital signs: 98.1F temp, pulse 93, 18 respirations, 153/81 bp. Will monitor.
--- NOTE | 2018-06-23 22:55 | NUR ---
BT INITIATION: 2ND UNIT Consent signed per daughter agreeing to administration of blood. Blood has been type and crossmatched. Blood sent from blood bank. Information on unit of blood checked against patient wristband at bedside by two nurses. All information matches. Patient or responsible alliance party informed of potential complications associated with blood transfusion. Informed of possible transfusion reaction symptoms. Aware of need to notify nurse at once of itching, shortness of breath, flushing, feeling of impending doom, or other symptoms not previously present. Vital signs taken within 5 minutes prior to initiation of transfusion. RN will remain with patient for first 15 minutes of transfusion at which time vital signs will be re-assessed. Addendum: 06/24/18 at 0420 by Beatris Munguia RN WITNESSED AT BEDSIDE WITH KRISTINE HUANG
--- NOTE | 2018-06-23 23:10 | NUR ---
15 MINUTES AFTER 2ND BT INITIATION Tolerating blood transfusion with no adverse reaction noted. Vital signs: 98.1F temp, pulse 82, 18 respirations, 150/78 bp. Will monitor.
[2018-06-23] MEDS: AMOXICILLIN 500 MG CAPSULE GT SCH (23:11)
--- NOTE | 2018-06-24 | NUR ---
28 FR MANJARREZ CATHETER CHANGED PER PROTOCOL Patient was received with a (chronic) Manjarrez catheter. 28 german Manjarrez catheter was changed per protocol. Immediate return of 100 mls or cloudy urine. Catheter is intact, secured and draining urine by gravity. Will send to lab for urinalysis and culture.
--- NOTE | 2018-06-24 | NUR ---
ORAL CARE Oral care and moisturizer was provided. Tolerated well.
--- NOTE | 2018-06-24 00:12 | NUR ---
BLOOD SUGAR Patient's blood sugar 142; no insulin coverage was given per sliding scale order.
[2018-06-24 00:34] VITALS: BP_SYST 150
--- NOTE | 2018-06-24 00:38 | NUR ---
WOUND CARE/WOUND VAC APPLICATION Photos of patient's wounds to sacral, bilateral upper and lower extremities were taken and mounted on photographic wound documentation forms. Wound vac applied as ordered by MD. See assessment for wound details.
[2018-06-24 00:55] VITALS: BP_SYST 145
--- NOTE | 2018-06-24 00:55 | NUR ---
2ND UNIT BLOOD TRANSFUSION COMPLETE Tolerated 2nd unit of blood transfusion with no adverse reaction noted. Vital signs: 98.1F temp, pulse 75, 20 respirations, 145/72 bp. Will monitor.
--- NOTE | 2018-06-24 01:40 | NUR ---
URINE SPECIMEN SENT TO LAB Urine specimen was collected and sent to lab for testing.
--- NOTE | 2018-06-24 02:00 | NUR ---
ORAL CARE/REPOSITIONING Oral care and moisturizer was provided. Repositioned patient and bilateral heels offloaded with pillows lengthwise. Tolerated well.
[2018-06-24 02:14] LABS: BILIRUBIN,URINE NEGATIVE (NEGATIVE); BLOOD, URINE 3+ (NEGATIVE); CLARITY/URINE CLEAR (CLEAR); COLOR,URINE YELLOW (YELLOW); GLUCOSE,URINE NEGATIVE (NEGATIVE); KETONES,URINE NEGATIVE (NEGATIVE); LEUKOCYTE ESTERASE ,URINE 1+ (NEGATIVE); NITRITE, URINE NEGATIVE (NEGATIVE); PROTEIN URINE 3+ (NEGATIVE); UROBILINOGEN,URINE 0.2 (0.2-1.0)
[2018-06-24 02:21] LABS: BACTERIA,URINE MANY /HPF (None Seen); RBC,URINE 80-100 /HPF (0-3)
--- NOTE | 2018-06-24 04:00 | NUR ---
WOUND VAC Wound vac is working well with no leaking noted. Minimal output at this time. Will monitor.
--- NOTE | 2018-06-24 04:30 | NUR ---
REPOSITIONING/TUBEFEEDING/GOWN CHANGED Repositioned with pillows as support. Patient's personal gown was changed to ours and hers was placed in a patient's belongings bag to be collected by her daughter in the morning along with her wheelchair at bedside. Tolerating tubefeeding well with zero residuals noted. Will monitor.
[2018-06-24] MEDS: AMOXICILLIN 500 MG CAPSULE GT SCH ×3 (05:47→22:08)
--- NOTE | 2018-06-24 05:47 | NUR ---
ACCUCHECK Patient's blood sugar 206; 4 units regular insulin administered per sliding scale. Scheduled meds administered as ordered. See EMAR.
[2018-06-24] MEDS: INSULIN REGULAR, HUMAN 100 UNITS/ML, 10 ML VIAL (novoLIN R) SUBCUT PRN ×4 (05:48→22:11)
--- NOTE | 2018-06-24 06:32 | NUR ---
CLOSING NOTES Patient is resting at this time with no s/s of acute distress. All needs were met throughout shift. Safety, fall, isolation, and seizure precautions were maintained. Call light with patient but she is unable. Room near nurses station. Will endorse care and give SBAR report to oncoming day shift nurse.
[2018-06-24] MEDS: ALBUTEROL SULFATE 0.083% 2.5 MG/3 ML VIAL.NEB INH SCH ×5 (07:00→23:00)
[2018-06-24 07:29] LABS: TOTAL IRON BIND. CAPACITY 108 ug/dL (250-450)
--- NOTE | 2018-06-24 07:47 | NUR ---
Nutrition Update Jeff Scale 9 noted. Pt admitted for severe anemia. Diet: Glucerna 1.2 at 70 ml/hr, Marques BID, Free Water Flush: 150 ML/H via GT BMI: 29.2 kg/m2 RD to follow per nutrition care standards.
[2018-06-24] MEDS ORDERED: IPRATROPIUM/ALBUTEROL SULFATE 3 ML AMPUL.NEB (DUONEB) INH PRN (07:49)
--- NOTE | 2018-06-24 07:50 | NUR ---
opening note patient is resting in bed, A&Ox1, patient is nonverbal but has eyes opened to voice, assessment completed, educated on plan of care and call light system, patient did not give me a verbal response, no signs of distress, ortiz intact, PICC site intact, ostomy intact, g-tube intact, no other needs addressed at this time, bed in lowest position, side rails up with seizure precautions, bed alarm on, contact precautions in place.
[2018-06-24] MEDS: POTASSIUM CHLORIDE 20 MEQ/PKT PACKET GT SCH (08:24)
[2018-06-24] MEDS: METOCLOPRAMIDE HCL 10 MG/10 ML UDC GT SCH ×4 (08:24→20:36)
[2018-06-24] MEDS: LACTULOSE 20 GM/30 ML UDC GT SCH ×2 (08:25→20:36)
[2018-06-24] MEDS: LevETIRAcetam 500 MG/5 ML UDC ORAL LIQUID GT SCH ×2 (08:25→20:37)
--- NOTE | 2018-06-24 08:25 | NUR ---
scheduled medications patient resting in bed, educated on medications uses and side effects, given via g tube, no verbal response, ostomy bag emptied, no other needs addressed at this time, no signs of distress, fall/safety precautions in place, contact precautions in place.
[2018-06-24] MEDS: LANSOPRAZOLE 30 MG CAPSULE.DR GT SCH (08:26)
[2018-06-24] MEDS: ASCORBIC ACID 500 MG TABLET GT SCH (08:26)
[2018-06-24] MEDS: CALCIUM CARBONATE/VITAMIN D3 1 TAB TABLET GT SCH ×2 (08:26→20:36)
[2018-06-24 08:27] VITALS: BP_SYST 123
[2018-06-24] MEDS: CHOLECALCIFEROL (VITAMIN D3) 2,000 UNIT TABLET GT SCH (08:27)
[2018-06-24] MEDS ORDERED: ASCORBIC ACID GT SCH (09:00)
[2018-06-24] MEDS ORDERED: [UNRECOGNIZED DRUG - OTHER] GT SCH (09:00)
[2018-06-24] MEDS ORDERED: FERROUS SULFATE 300 MG/5 ML UDC GT SCH (09:00)
[2018-06-24] MEDS ORDERED: CRANBERRY GT SCH (09:00)
--- NOTE | 2018-06-24 10:21 | NUR ---
Dietitian Recommendations * Recommend continuing Glucerna 1.2 at 70 ml/hr, Marques BID via GT Provides: 2206 kcal/day, 106 gm protein/day, and 1352 ml free water/day Meets: 109% of upper end of estimated caloric needs and 91% of upper end of estimated protein needs * Physician to clarify free water flush order as 150 ML/H via GT provides 3600 ml/day -- may be excessive d/t pt's Hx of CKD LP, RD Please refer to Nutrition Assessment for details.
[2018-06-24 11:16] VITALS: BP_SYST 118
--- NOTE | 2018-06-24 11:25 | NUR ---
Nutrition Consult RD received Nutrition Consult for gt. Pt was seen and assessed by RD earlier today. Please refer to Nutrition Assessment for details. New water flush order noted and verified by physician at 1114.
[2018-06-24 11:32] LABS: BASOPHILS % (AUTO) 0.4 % (0.0-2.0); EOSINOPHILS # (AUTO) 0.2 K/uL (0.0-0.4); EOSINOPHILS % (AUTO) 1.5 % (0.0-4.0); LYMPHOCYTES # (AUTO) 0.8 K/uL (1.0-5.5); MEAN CORPUSCULAR HEMOGLOBIN 26 pg (27-31); MEAN CORPUSCULAR HGB CONC 32 % (32-36); MEAN CORPUSCULAR VOLUME 81 fL (79.0-98.0); MONOCYTES # (AUTO) 0.7 K/uL (0.0-1.0); MONOCYTES % (AUTO) 5.4 % (1.7-9.3); NEUTROPHILS # (AUTO) 10.4 K/uL (1.8-7.7); NEUTROPHILS % (AUTO) 85.7 % (40.0-70.0); PLATELET COUNT (AUTO) 109 K/uL (130-430); RED BLOOD CELL COUNT(AUTO) 3.46 MIL/uL (4.2-6.2); RED CELL DISTRIBUTION WIDTH 16.2 % (9.0-15.0); WHITE BLOOD COUNT (AUTO) 12.1 K/uL (4.8-10.8)
[2018-06-24 11:50] LABS: CREATININE 0.95 mg/dL (0.55-1.30); POTASSIUM 4.8 mmol/L (3.5-5.1)
--- NOTE | 2018-06-24 12:04 | NUR ---
accuchek patient resting in bed, accuchek done and sliding scale needed per MD order, ostomy bag emptied, no other needs addressed at this time, no signs of distress, fall/safety precautions in place, contact precautions in place.
[2018-06-24] MEDS ORDERED: CYANOCOBALAMIN 1000 mCg TABLET GT ONE (12:30)
[2018-06-24] MEDS ORDERED: EPOETIN ALFA 4,000 UNITS/ML VIAL SUBCUT ONE (12:30)
[2018-06-24] MEDS ORDERED: VITAMIN B COMPLEX WITH C TAB/CAP GT SCH (12:30)
[2018-06-24] MEDS ORDERED: VITAMIN B COMPLEX WITH C TAB/CAP GT ONE (13:15)
--- NOTE | 2018-06-24 14:45 | NUR ---
Case mgt: LVM for daughter Maci to call me to discuss DC plan assessment--Pt is trach/vent-dependent at home--Dtr and son-in-law take care of pt at home per medical record on previous admission. Per previous admission, pt has multiple DME including hospital bed, 02,vent, suction equipment, G-tube feeding/equipment, wound vac/supplies, [facility] on service and [facility] for DME supplies and RT--Follow up as needed for dc planning--Per Dr. Valentine, he s/w daughter Maci about possible discharge home tomorrow 06/25/18-If patient gets discharged, please call [facility] at [phone] and fax updated info to them at [phone]-Also notify [facility] at [phone] and fax [phone]--LUCILA CARMONA Addendum: 06/24/18 at 1513 by Therese Holliday RN Case mgt: Faxing Face sheet, H&P, current MD KARMA progress notes to [facility] fax#[phone]--LUCILA CARMONA
[2018-06-24 15:44] VITALS: BP_SYST 124
--- NOTE | 2018-06-24 17:00 | NUR ---
accuchek and scheduled medications patient resting in bed, accuchek done and sliding scale needed per MD order, ostomy bag emptied, new bottle of tube feeding hung, scheduled medications given, educated on medication uses and side effects, no other needs addressed at this time, no signs of distress, fall/safety precautions in place, contact precautions in place.
[2018-06-24] MEDS: SOD FERRIC GLUC COMPLEX/SUC 125 MG in NS 100 ML IV SCH (17:03)
--- NOTE | 2018-06-24 18:40 | NUR ---
closing note patient is resting in bed, no signs of distress, ortiz intact, PICC site intact, ostomy intact, g-tube intact, mechanical vent functioning, wound vac on, no other needs addressed at this time, will endorse report to noc shift nurse, bed in lowest position, side rails up with seizure precautions, bed alarm on, contact precautions in place.
--- NOTE | 2018-06-24 19:25 | NUR ---
OPENING NOTE RECEIVED CARE OF PT AND BEDSIDE REPORT. PT RESTING IN BED, NO S/S OF ACUTE DISTRESS, BREATHING IS EFFORTLESS TO VENT SETTINGS. VENT SETTINGS ARE FOLLOWS: TV: 500, FIO2: 30%, RR: 14, PEEP: 5. WOUND VAC IS ON SUCTION. TUBE FEEDING IS RUNNING AT ORDERED RATE. PICC SITE IS CLEAN, DRY AND INTACT. MANJARREZ CATHETER IS INTACT AND DRAINING WELL TO GRAVITY. SAFETY PRECAUTIONS IN PLACE: BED LOCKED IN LOWEST POSITION, CALL LIGHT WITH PT, SIDE RAILS UPX3, SEIZURE PADS IN PLACE, BED ALARM ON, CLOSE TO NURSING STATION, CONTACT PRECAUTIONS MAINTAINED. WILL MONITOR.
[2018-06-24 20:00] VITALS: BP_SYST 132
--- NOTE | 2018-06-24 22:10 | NUR ---
ACCUCHECK/SCHEDULED AMOXICILLIN PT'S BLOOD SUGAR 169, 2 UNITS OF REGULAR INSULIN GIVEN PER SLIDING SCALE. SCHEDULED AMOXICILLIN GIVEN ORDERED. MEDICATION ACTION AND POTENTIAL SIDE EFFECTS EXPLAINED TO PT. PT UNABLE TO VERBALIZE UNDERSTANDING. SAFETY, ASPIRATION, SEIZURE, AND CONTACT PRECAUTIONS MAINTAINED. WILL MONITOR.
--- NOTE | 2018-06-25 00:05 | NUR ---
RN ROUNDS: PT RESTING IN BED, TOLERATING VENT SETTINGS WELL, NO S/S OF ACUTE DISTRESS. TUBE FEEDING IS RUNNING AT ORDERED RATE. ORAL CARE GIVEN, TRACHEAL SUCTIONING PERFORMED WITH SMALL AMOUNT OF THICK WHITE SECRETION, PT TOLERATED WELL. SAFETY, ASPIRATION, CONTACT, AND SEIZURE PRECAUTIONS MAINTAINED. WILL MONITOR.
[2018-06-25 00:33] VITALS: BP_SYST 118
[2018-06-25] MEDS: ALBUTEROL SULFATE 0.083% 2.5 MG/3 ML VIAL.NEB INH SCH ×6 (02:02→23:11)
--- NOTE | 2018-06-25 02:35 | NUR ---
RN ROUNDS: PT REPOSITIONED IN BED. ORAL CARE PERFORMED. TRACHEAL SUCTION PROVIDED WITH MODERATE THICK WHITE SECRETIONS. PT TOLERATED WELL. NO S/S OF DISTRESS, PT IS TOLERATING VENT SETTINGS WELL. MANJARREZ CATHETER IS INTACT AND DRAINING TO GRAVITY. SAFETY, CONTACT, ASPIRATION, SEIZURE AND PRESSURE PRECAUTIONS IN PLACE. WILL MONITOR.
[2018-06-25] MEDS: AMOXICILLIN 500 MG CAPSULE GT SCH ×3 (05:10→22:30)
--- NOTE | 2018-06-25 05:10 | NUR ---
ACCUCHECK/SCHEDULED AMOXICILLIN BLOOD SUGAR OF 170, 2 UNITS REGULAR INSULIN GIVEN PER SLIDING SCALE. SCHEDULED AMOXICILLIN GIVEN. GTUBE IS PATENT AND FLUSHING WELL. MEDICATIONS AND POTENTIAL SIDE EFFECTS EXPLAINED TO PT. PT UNABLE TO VERBALIZE UNDERSTANDING. SAFETY MAINTAINED. WILL MONITOR.
[2018-06-25] MEDS: INSULIN REGULAR, HUMAN 100 UNITS/ML, 10 ML VIAL (novoLIN R) SUBCUT PRN ×4 (05:12→22:33)
--- NOTE | 2018-06-25 05:26 | NUR ---
TUBE FEEDING CHANGED PT RECEIVED NEW GLUCERNA 1.2 TUBE FEEDING CONTAINER. TUBE FEEDING IS RUNNING ORDERED, GTUBE IS PATENT AND FLUSHES WELL. ASPIRATION PRECAUTIONS IN PLACE. WILL MONITOR.
--- NOTE | 2018-06-25 06:32 | NUR ---
CLOSING NOTE PT RESTING IN BED, NO S/S OF ACUTE DISTRESS, PT IS TOLERATING VENT SETTINGS WELL. MANJARREZ CATHETER IS INTACT AND DRAINING WELL TO GRAVITY. WOUND VAC IS ON AND TO SUCTION. PICC DRESSING IS CLEAN, DRY AND INTACT. SAFETY, SEIZURE, ASPIRATION, CONTACT, AND PRESSURE PRECAUTIONS MAINTAINED. ALL NEEDS MET DURING SHIFT. WILL ENDORSE CARE TO DAY SHIFT RN.
[2018-06-25 06:53] LABS: BASOPHILS # (AUTO) 0.1 K/uL (0.0-0.2); BASOPHILS % (AUTO) 0.7 % (0.0-2.0); EOSINOPHILS # (AUTO) 0.2 K/uL (0.0-0.4); EOSINOPHILS % (AUTO) 2.3 % (0.0-4.0); HEMATOCRIT 26.1 % (36-48); HEMOGLOBIN 8.5 g/dL (12.0-16.0); LYMPHOCYTES # (AUTO) 1.1 K/uL (1.0-5.5); LYMPHOCYTES % (AUTO) 10.3 % (20.5-51.5); MEAN CORPUSCULAR HEMOGLOBIN 27 pg (27-31); MEAN CORPUSCULAR HGB CONC 33 % (32-36); MEAN CORPUSCULAR VOLUME 82 fL (79.0-98.0); MONOCYTES # (AUTO) 0.7 K/uL (0.0-1.0); MONOCYTES % (AUTO) 6.4 % (1.7-9.3); NEUTROPHILS # (AUTO) 8.3 K/uL (1.8-7.7); NEUTROPHILS % (AUTO) 80.3 % (40.0-70.0); PLATELET COUNT (AUTO) 176 K/uL (130-430); RED BLOOD CELL COUNT(AUTO) 3.18 MIL/uL (4.2-6.2); RED CELL DISTRIBUTION WIDTH 16.4 % (9.0-15.0); RETICULOCYTE COUNT 2.3 % (0.5-1.5); WHITE BLOOD COUNT (AUTO) 10.3 K/uL (4.8-10.8)
--- NOTE | 2018-06-25 07:50 | NUR ---
opening note patient is resting in bed, A&Ox1, patient is nonverbal but has eyes opened to voice, assessment completed, educated on plan of care and call light system, patient did not give me a verbal response, no signs of distress, ortiz intact, PICC site intact, ostomy intact, g-tube intact, wound vac on, no other needs addressed at this time, bed in lowest position, side rails up with seizure precautions, bed alarm on, contact precautions in place.
[2018-06-25 07:52] LABS: CALCIUM 8.9 mg/dL (8.4-11.0); CREATININE 0.94 mg/dL (0.55-1.30); POTASSIUM 4.5 mmol/L (3.5-5.1); VANCOMYCIN,RANDOM 17.2 ug/mL
[2018-06-25 08:00] VITALS: BP_SYST 120
[2018-06-25] MEDS: POTASSIUM CHLORIDE 20 MEQ/PKT PACKET GT SCH (08:43)
[2018-06-25] MEDS: VITAMIN B COMPLEX WITH C TAB/CAP GT SCH (08:43)
[2018-06-25] MEDS: LACTULOSE 20 GM/30 ML UDC GT SCH ×2 (08:43→20:26)
[2018-06-25] MEDS: LevETIRAcetam 500 MG/5 ML UDC ORAL LIQUID GT SCH ×2 (08:43→20:26)
[2018-06-25] MEDS: ASCORBIC ACID 500 MG TABLET GT SCH (08:43)
[2018-06-25] MEDS: LANSOPRAZOLE 30 MG CAPSULE.DR GT SCH (08:43)
[2018-06-25] MEDS: CALCIUM CARBONATE/VITAMIN D3 1 TAB TABLET GT SCH ×2 (08:43→20:26)
[2018-06-25] MEDS: METOCLOPRAMIDE HCL 10 MG/10 ML UDC GT SCH ×4 (08:43→20:26)
[2018-06-25] MEDS: CHOLECALCIFEROL (VITAMIN D3) 2,000 UNIT TABLET GT SCH (08:44)
[2018-06-25] MEDS: CYANOCOBALAMIN 1000 mCg TABLET GT SCH (08:44)
--- NOTE | 2018-06-25 10:08 | NUR ---
rounds patient resting in bed, ostomy bag emptied, no other needs addressed at this time, no signs of distress, fall/safety precautions in place, contact precautions in place.
[2018-06-25] MEDS: VANCOMYCIN HCL 750 MG in NS 250 ML IV SCH (10:58)
--- NOTE | 2018-06-25 11:05 | NUR ---
accuchek and scheduled vancomycin patient in bed and respiratory therapist in room, accuchek done and sliding scale needed per MD order, vancomycin was hung, educated patient on medication uses and side effects, no other needs at this time, fall/safety and contact precautions in place.
[2018-06-25 12:45] VITALS: BP_SYST 119
[2018-06-25 14:35] VITALS: BP_SYST 117
--- NOTE | 2018-06-25 14:40 | NUR ---
BT INITIATION: Consent signed per patient family member agreeing to administration of blood. Blood has been type and crossmatched. Blood sent from blood bank. Information on unit of blood checked against patient wristband at bedside by two nurses. All information matches. Patient or responsible alliance party informed of potential complications associated with blood transfusion. Informed of possible transfusion reaction symptoms. Aware of need to notify nurse at once of itching, shortness of breath, flushing, feeling of impending doom, or other symptoms not previously present. Vital signs taken within 5 minutes prior to initiation of transfusion. RN will remain with patient for first 15 minutes of transfusion at which time vital signs will be re-assessed.
[2018-06-25 15:58] VITALS: BP_SYST 129
--- NOTE | 2018-06-25 17:00 | NUR ---
accuchek and scheduled medications patient resting in bed, accuchek done and sliding scale needed per MD order, ostomy bag emptied, scheduled medications given, blood transfusion just finished, educated on medication uses and side effects, no other needs addressed at this time, no signs of distress, fall/safety precautions in place, contact precautions in place.
[2018-06-25] MEDS: SOD FERRIC GLUC COMPLEX/SUC 125 MG in NS 100 ML IV SCH (18:30)
--- NOTE | 2018-06-25 18:54 | NUR ---
closing note patient is resting in bed, no signs of distress, ortiz intact, PICC site intact, ostomy intact, g-tube intact, mechanical vent functioning, wound vac on, no other needs addressed at this time, will endorse report to noc shift nurse that I administered Ferrlecit late because patient was getting 1 unit of PRBCs, bed in lowest position, side rails up with seizure precautions, bed alarm on, contact precautions in place.
--- NOTE | 2018-06-25 19:10 | NUR ---
OPENING NOTE RECEIVED CARE OF PT AND BEDSIDE REPORT. PT RESTING IN BED, NO S/S OF ACUTE DISTRESS, BREATHING IS EFFORTLESS TO VENT SETTINGS. VENT SETTINGS ARE FOLLOWS: TV: 500, FIO2: 30%, RR: 14, PEEP: 5. WOUND VAC IS ON TO SUCTION. TUBE FEEDING IS RUNNING AT ORDERED RATE, GTUBE SITE IS INTACT. PICC SITE IS CLEAN, DRY AND INTACT. MANJARREZ CATHETER IS INTACT AND DRAINING WELL TO GRAVITY. SAFETY PRECAUTIONS IN PLACE: BED LOCKED IN LOWEST POSITION, CALL LIGHT WITH PT, SIDE RAILS UPX3, SEIZURE PADS IN PLACE, BED ALARM ON, CLOSE TO NURSING STATION, CONTACT PRECAUTIONS MAINTAINED. WILL MONITOR.
[2018-06-25 20:00] VITALS: BP_SYST 126
--- NOTE | 2018-06-25 20:26 | NUR ---
SCHEDULED MEDICATION PASS PT IS AWAKE SITTING UP IN BED, NO S/S OF ACUTE DISTRESS, BREATHING IS EFFORTLESS TO VENT SETTINGS. SCHEDULED MEDICATIONS ADMINISTERED. MEDICATION ACTIONS AND POTENTIAL SIDE EFFECTS EXPLAINED TO PT. PT UNABLE TO VERBALIZE UNDERSTANDING. GTUBE IS PATENT AND FLUSHES WELL. PT TOLERATED WELL. SAFETY MAINTAINED. WILL MONITOR.
--- NOTE | 2018-06-25 22:30 | NUR ---
ACCUCHECK/SCHEDULED AMOXICILLIN BLOOD SUGAR OF 203, 4 UNITS OF REGULAR INSULIN GIVEN PER SLIDING SCALE. SCHEDULED AMOXICILLIN ADMINISTERED. MEDICATION AND POTENTIAL SIDE EFFECTS EXPLAINED TO PT. PT UNABLE TO VERBALIZE UNDERSTANDING. GTUBE IS PATENT AND FLUSHES WELL. BREATHING IS EFFORTLESS TO VENT SETTINGS. NO S/S OF ACUTE DISTRESS. PT APPEARS COMFORTABLE. SAFETY MAINTAINED. WILL MONITOR.
--- NOTE | 2018-06-26 00:05 | NUR ---
REPOSITIONED/ORAL CARE PT REPOSITIONED AND PROVIDED WITH NEW LINEN. ORAL CARE GIVEN, PT TOLERATED WELL. NO S/S OF DISTRESS, PT TOLERATING VENT SETTINGS WELL. SAFETY, CONTACT, ASPIRATION, SEIZURE AND PRESSURE PRECAUTIONS IN PLACE. WILL MONITOR.
[2018-06-26 01:14] VITALS: BP_SYST 140
--- NOTE | 2018-06-26 02:21 | NUR ---
SLEEPING PT RESTING IN BED WITH EYES CLOSED. VISIBLE SYMMETRICAL RISE AND FALL OF CHEST TO VENT SETTINGS, NO SOB OR ACUTE DISTRESS NOTED. MANJARREZ CATHETER IS INTACT AND DRAINING TO GRAVITY. TUBE FEEDING IS RUNNING AT ORDERED RATE. WOUND VAC IS DRAINING TO SUCTION. SAFETY, ASPIRATION, CONTACT, SEIZURE, AND PRESSURE PRECAUTIONS IN PLACE. WILL MONITOR.
[2018-06-26] MEDS: ALBUTEROL SULFATE 0.083% 2.5 MG/3 ML VIAL.NEB INH SCH ×6 (03:46→23:12)
[2018-06-26] MEDS: INSULIN REGULAR, HUMAN 100 UNITS/ML, 10 ML VIAL (novoLIN R) SUBCUT PRN ×3 (04:24→17:33)
--- NOTE | 2018-06-26 04:25 | NUR ---
ACCUCHECK BLOOD SUGAR 156, 2 UNITS OF REGULAR INSULIN GIVEN PER SLIDING SCALE.
--- NOTE | 2018-06-26 05:25 | NUR ---
WOUND VAC CHANGED WOUND VAC APPLIED ORDERED BY . SEE ASSESSMENT FOR WOUND DETAILS.
[2018-06-26] MEDS: AMOXICILLIN 500 MG CAPSULE GT SCH ×3 (05:53→20:38)
--- NOTE | 2018-06-26 05:53 | NUR ---
SCHEDULED AMOXICILLIN/CHANGED COLOSTOMY. PT GIVEN SCHEDULED AMOXICILLIN. GTUBE PATENT AND FLUSHES WELL. COLOSTOMY LEAKING AND PT WAS CLEANED AND COLOSTOMY BAG WAS CHANGED. PT PROVIDED CLEAN LINEN AND SKIN CARE AND WAS REPOSITIONED. ORAL CARE PROVIDED. NO S/S OF DISTRESS, PT TOLERATED WELL. SAFETY MAINTAINED. WILL MONITOR.
--- NOTE | 2018-06-26 06:33 | NUR ---
CLOSING NOTE PT RESTING IN BED, NO S/S OF ACUTE DISTRESS, PT IS TOLERATING VENT SETTINGS WELL. VENT SETTINGS AC, TV: 500, FIO2: 30%, PEEP 5, RR: 14. MANJARREZ CATHETER IS INTACT AND DRAINING WELL TO GRAVITY. WOUND VAC IS ON AND TO SUCTION. PICC DRESSING IS CLEAN, DRY AND INTACT. SAFETY, SEIZURE, ASPIRATION, CONTACT, AND PRESSURE PRECAUTIONS MAINTAINED. ALL NEEDS MET DURING SHIFT. WILL ENDORSE CARE TO DAY SHIFT RN.
[2018-06-26 06:37] LABS: BASOPHILS # (AUTO) 0.1 K/uL (0.0-0.2); BASOPHILS % (AUTO) 0.5 % (0.0-2.0); EOSINOPHILS # (AUTO) 0.3 K/uL (0.0-0.4); EOSINOPHILS % (AUTO) 2.6 % (0.0-4.0); HEMATOCRIT 30.1 % (36-48); HEMOGLOBIN 9.7 g/dL (12.0-16.0); LYMPHOCYTES # (AUTO) 1.1 K/uL (1.0-5.5); LYMPHOCYTES % (AUTO) 10.2 % (20.5-51.5); MEAN CORPUSCULAR HEMOGLOBIN 27 pg (27-31); MEAN CORPUSCULAR HGB CONC 32 % (32-36); MEAN CORPUSCULAR VOLUME 83 fL (79.0-98.0); MONOCYTES # (AUTO) 0.7 K/uL (0.0-1.0); MONOCYTES % (AUTO) 6.1 % (1.7-9.3); NEUTROPHILS # (AUTO) 8.7 K/uL (1.8-7.7); NEUTROPHILS % (AUTO) 80.6 % (40.0-70.0); PLATELET COUNT (AUTO) 121 K/uL (130-430); RED BLOOD CELL COUNT(AUTO) 3.63 MIL/uL (4.2-6.2); RED CELL DISTRIBUTION WIDTH 16.1 % (9.0-15.0); WHITE BLOOD COUNT (AUTO) 10.8 K/uL (4.8-10.8)
[2018-06-26 07:09] LABS: CALCIUM 8.8 mg/dL (8.4-11.0); CREATININE 1.01 mg/dL (0.55-1.30)
--- NOTE | 2018-06-26 07:45 | NUR ---
INITIAL NOTE PT IN BED, NO S/S OF DISTRESS OR SOB NOTED, PT HAS NO FACIAL GRIMACING NOTED FOR PAIN AT THIS TIME, PT IN STABLE CONDITION. PT AAOX1, NONVERBAL, OPENS EYES AND TRACKS. PT HAS A PICC LINE ON RIGHT UPPER ARM, NO SIGNS OF INFECTION OR INFILTRATION NOTED, BOTH PORTS FLUSH AND DRESSING IS NON OCCLUDED CLEAN AND DRY, NOTED NO BLOOD RETURN FROM EITHER PORT. PT IN STABLE CONDITION, BED AT LOWEST POSITION, CALL LIGHT WITHIN REACH, WILL CONTINUE TO MONITOR PT FOR ANY CHANGES. FALL, SEIZURE AND CONTACT PRECAUTIONS IN PLACE. PT HAS A G TUBE IN PLACE, PATENT, FLUSHES, PLACEMENT VERIFIED, TOLERATING FEEDINGS PRESCRIBED. PT HAS A COLOSTOMY ON LEFT AND, STOMA BEEFY RED. PT ON AIR MATTRESS, BILATERAL SCD'S IN PLACE.
[2018-06-26 08:15] VITALS: BP_SYST 115
[2018-06-26] MEDS: METOCLOPRAMIDE HCL 10 MG/10 ML UDC GT SCH ×4 (09:04→20:38)
[2018-06-26] MEDS: LACTULOSE 20 GM/30 ML UDC GT SCH ×2 (09:04→20:37)
[2018-06-26] MEDS: ASCORBIC ACID 500 MG TABLET GT SCH (09:06)
[2018-06-26] MEDS: LANSOPRAZOLE 30 MG CAPSULE.DR GT SCH (09:06)
[2018-06-26] MEDS: CYANOCOBALAMIN 1000 mCg TABLET GT SCH (09:06)
[2018-06-26] MEDS: LevETIRAcetam 500 MG/5 ML UDC ORAL LIQUID GT SCH ×2 (09:06→20:38)
[2018-06-26] MEDS: CHOLECALCIFEROL (VITAMIN D3) 2,000 UNIT TABLET GT SCH (09:06)
[2018-06-26] MEDS: POTASSIUM CHLORIDE 20 MEQ/PKT PACKET GT SCH (09:06)
[2018-06-26] MEDS: CALCIUM CARBONATE/VITAMIN D3 1 TAB TABLET GT SCH ×2 (09:06→20:38)
[2018-06-26] MEDS: VITAMIN B COMPLEX WITH C TAB/CAP GT SCH (09:07)
--- NOTE | 2018-06-26 10:10 | NUR ---
ROUNDS PT IN BED, NO S/S OF DISTRESS OR SOB NOTED, PT HAS NO FACIAL GRIMACING NOTED FOR PAIN AT THIS TIME. PT IN STABLE CONDITION, PT RESTING COMFORTABLY. WILL CONTINUE TO MONITOR PT FOR ANY CHANGES.
--- NOTE | 2018-06-26 10:30 | NUR ---
VOMITING PT VOMITED ABOUT 100CC OF YELLOW EMESIS, FEEDING STOPPED AT THIS TIME, ASPIRATION PRECAUTIONS IN PLACE. DR FITZ AMES, AWAITING CALL BACK. NO RESIDUAL NOTED. Addendum: 06/26/18 at 1050 by Madai Dacosta RN CALLED BACK AND GAVE NEW ORDERS
[2018-06-26 11:20] VITALS: BP_SYST 143
[2018-06-26 11:30] VITALS: BP_SYST 143
[2018-06-26] MEDS ORDERED: GASTROGRAFIN 120 ML ONE (11:49)
--- NOTE | 2018-06-26 13:11 | NUR ---
DC Planning: Notified pt's dtr/Maci for possible discharge pt. home today once received confirmation from [facility], IV abx set up, ambulance set up, HH readiness confirmation. Maci is agreeable with the POC.
--- NOTE | 2018-06-26 13:27 | NUR ---
>> DC Planning : Received call from EDWARDO/Sandra stated to postpone the ambulance greens picker (scheduled at 1530). The pt is vomiting and is waiting for KUB result. -- tom Shepard made aware. She changed the [facility] ambulance greens picker time to a "will call " staus.
--- NOTE | 2018-06-26 14:12 | NUR ---
NPO PT CONTINUES TO BE NPO DUE TO SMALL BOWEL X RAY, NO MEDICATIONS AT THIS TIME WILL BE GIVEN.
--- NOTE | 2018-06-26 14:35 | NUR ---
Discharge Planning: DCP arranged for transportation with [facility] (f [phone]) 3:00pm P/U CCT with RT, charge nurse called CM stated pt vomited. CM told DCP to ambulance on WILL CALL, DCP called [facility] and put on will call. DCP updated patient packet and took to nurse station.
[2018-06-26 16:05] VITALS: BP_SYST 130
--- NOTE | 2018-06-26 16:35 | NUR ---
WOUND EVALUATION: Late note for 06/26/18 at 1635 secondary to patient care. Wound Consult received from Dr. Valentine. Thank you, Dr. Valentine, for the consult. Patient received in a [place] Bed with an Isoflex ENE mattress with low air-loss therapy initiated, awake, alert, nonverbal, nonresponsive to verbal commands. Patient is unable to turn in bed independently. Jeff Score is a 12. Past Medical History: CVA, residual Left-Sided Hemiplegia, Dysphagia, Hypertension, Diabetes Mellitus Type II, Stage IV Sacral-Coccygeal pressure ulcer, Hyperlipidemia, Anemia, Atherosclerosis, Neurogenic Bladder. Recent Labs: WBC 10.8, RBC 3.63, hemoglobin 9.7, hematocrit 30.1, platelets 121, BUN 37, creatinine 1.01, GFR 58, glucose 140, albumin 1.8. Microbiology: MRSA screen results negative. Blood culture results 2 in progress. Urine culture results positive for Proteus Mirabilis. Sputum culture results positive for Acinetobacter Baumannii/haemol (MDRO, APPLICATION SUPPORT CONSULTANT), and Morganella morganii (CNSO). Intrinsic factors that delay wound healing: Diabetes Mellitus, Anemia. Extrinsic factors that delay wound healing: Immobility. Patient received 3 units blood of blood products (received 5 units on last admission). Wound Assessment: 1. Sacral-Coccygeal/Buttocks areas: Stage IV Pressure Ulcer, present on admission. Wound bed has 40% yellow tissue, 30% black tissue, 30% dull red tissue. Mild odor, small yellow sanguineous drainage. Periwound pink with maceration. Wound measures 10.2 cm x 19.3 cm x 3.0 cm. Undermining present from 7-12 o-clock, measuring 5.6 cm at 9 o'clock, 1.8 cm at 12 o'clock; Wound tunnels/connects to wound 2 at 7-8 o'clock. Recommend: Cleanse wound with normal saline. Apply moisture barrier cream to bowen-wound. Apply Venelex ointment to wound bed. black granufoam dressing to size and place into wound and also connect to left buttock wound. Cover with VAC drape. Make a bridge: Cut a hole into wound dressing, lay Vac drape from wound to non-bony portion of hip. Connect black or any foam to wound and lay over VAC drape to the hip. Apply suction attachment to hip portion of granufoam. Apply more VAC drape on top of bridged granufoam. Connect to wound VAC. Run wound VAC at 125 mmHg, continuous. Perform wound care q Tuesday, and as needed for dressing soiling or dislodgement. 2. Left Buttock, Inferior and Left Lateral to Wound 1: Wound bed has 60% yellow tissue, 10% black tissue, 30% dull red tissue. Mild odor, small sanguineous drainage. Wound measures 6.0 cm x 5.0 cm x 2.8 cm. Undermining present from 11-12 o-clock, measuring 9.8 cm at 12 o'clock. Tunnel at 1-2 o'clock connects to Sacral wound. Recommend: Cleanse wound with normal saline. Apply moisture barrier cream to bowen-wound. Apply Venelex ointment to wound bed. black granufoam dressing to size and place into wound and also connect to Sacral wound. Cover with VAC drape. Perform wound care q Tuesday, and as needed for dressing soiling or dislodgement. 3. Left Buttock, Inferior and also left lateral to Wound 2: Multiple areas of scar tissue from previous wounds, present on admission. No odor, no drainage. Periwound intact. Recommend: Cleanse involved areas with mild soap and water. Pat dry. Apply moisture barrier cream to involved areas. Perform site care 4 times a day, and as needed for soiling. 4. Right upper outer sacral area: Skin tear from VAC drape, present on admission. Wound bed has 100% pink tissue. No odor, scant serous drainage. Periwound intact. Wound measures 1.5 cm x 1.2 cm. 5. Right outer sacral area: Skin tear from VAC drape, present on admission. Wound bed has 100% pink tissue. No odor, scant serous drainage. Periwound intact. Wound measures 1.0 cm x 0.8 cm. Recommend: Lens skin tears with normal saline. Apply moisture barrier cream to skin tears. Apply hydrogel to any portion of skin care not covered by moisture barrier cream. Cover with foam dressing. Perform wound care daily, and as needed for dressing soiling or dislodgment. 6. Left parietal scalp: chronic wound, present on admission. Wound bed has 90% black scab, 10% yellow scab. No odor, no drainage. Periwound intact. Wound measures 4.0 cm x 2.0 cm. 7. Parietal scalp, right lateral and inferior to wound 6: chronic wound, present on admission. Wound bed has 100% brown scab. No odor, no drainage. Periwound intact. Wound measures 0.8 cm x 1.2 cm. Recommend: Cover sites with non-adhesivefoam dressings. Secure with hairnet. Check sites every shift. Change dressings daily, and as needed for dressing soiling or dislodgment. 8. Right medial, lateral, posterior heel: Area of brown discoloration, present on admission. No odor, no drainage. Site measures 4.8 cm x 2.2 cm. Recommend: Elevate, offload and float bilateral feet with one pillow lengthwise under each extremity at all times. Do not allow any portion of feet or heels to touch bed or other surfaces at any time. Also recommend: Reposition patient side to side only every hour with pillow support (place one pillow underneath trunk and one pillow underneath pelvic area). Off-load pressure areas with pillows for pressure re-distribution. Offload, elevate and float bilateral heels with one pillow lengthwise under each extremity at all times. Perform skin care and monitor skin integrity Q shift. Use moisture barrier cream on buttocks and other moisture susceptible areas QID and as needed for soiling. Maintain patient on a low air-loss mattress.
[2018-06-26] MEDS: SOD FERRIC GLUC COMPLEX/SUC 125 MG in NS 100 ML IV SCH (17:32)
[2018-06-26] MEDS: EPOETIN ALFA 4,000 UNITS/ML VIAL SUBCUT SCH (17:32)
--- NOTE | 2018-06-26 17:43 | NUR ---
MD SUMAN AMES AWAITING CALL BACK TO SEE IF PT CAN BE RESTARTED ON THE FEEDING THE SMALL BOWEL X RAY IS NOT DONE AND LAST PICTURE WILL BE DONE TOMORROW IN AM. Addendum: 06/26/18 at 1755 by Madai Dacosta RN SPOKE WITH DR BYRNES AND TO CONTINUE FEEDINGS ORDERED.
--- NOTE | 2018-06-26 18:40 | NUR ---
CLOSING NOTE PT IN BED, NO S/S OF DISTRESS OR SOB NOTED, PT HAS NO FACIAL GRIMACING NOTED FOR PAIN AT THIS TIME, PT IN STABLE CONDITION. PT AAOX1, NONVERBAL, OPENS EYES AND TRACKS. PT HAS A PICC LINE ON RIGHT UPPER ARM, NO SIGNS OF INFECTION OR INFILTRATION NOTED, BOTH PORTS FLUSH AND DRESSING IS NON OCCLUDED CLEAN AND DRY. BED AT LOWEST POSITION, CALL LIGHT WITHIN REACH, WILL ENDORSE CARE OF PT TO INCOMING NURSE. FALL, SEIZURE AND CONTACT PRECAUTIONS IN PLACE. PT HAS A G TUBE IN PLACE, PATENT, FLUSHES, PLACEMENT VERIFIED, TOLERATING FEEDINGS THAT WERE STARTED PRESCRIBED. PT HAS A COLOSTOMY ON LEFT AND, STOMA BEEFY RED. PT ON AIR MATTRESS, BILATERAL SCD'S IN PLACE. WOUND VAC IN PLACE, NO LEAKAGE, AT 125MMHG.
[2018-06-26 19:00] VITALS: BP_SYST 124
--- NOTE | 2018-06-26 19:00 | NUR ---
change of shift.pt,.presents isolation;status;contact;urine.pt.presents trach/vent.pt.presents picc line,g-tube,colostomy, ortiz catheter,wound vac,all assessed.pt.presents nonverbal blunt affect.towel placement@head per wcn;ayan;no pillows. call light /telephone w/in the reach of the pt.
--- NOTE | 2018-06-26 20:00 | NUR ---
pt.assessed.v/s assessed;values w/in normal limits.i have assessed the vent;vent settings;tv;500,fio-2%=30%,a/c;14,peep;5. i have attended to oral/trach care.i have attended to oral trach suction.i have assessed the picc line;dsg due to be changed; 06/27/18.picc line.intact;patent;iv fluids infusing.arm circumference measured.i have assessed the g-tube;intact;patent.g-tube feed infusing,i have administered h20 water flush.i have assessed the ortiz catheter;intact;patent;urine content present.i have assessed the wound vac;wound drainage present w/in collection chamber.pt.assessed for cleanliness.pt.repositioned.call light/telephone placed w/in the reach of the pt.
--- NOTE | 2018-06-26 21:00 | NUR ---
2100p medications administered via g-tube;g-tube patent.g-tube residual assessed.
--- NOTE | 2018-06-26 22:00 | NUR ---
pt.assessed.pt.assessed for cleanliness.pt.repositioned.i have attended to the oral/trach care.i have attended to oral/trach suction. i have assessed the picc line;intact;patent;iv fluids infusing.i have assessed the g-tube;intact;patent;g-tube feed infusing. i have assessed the colotomy;intact;patent;fecal material present;i have released the accumulated air.i have assessed the wound vac;intact;drainage;wound present w/in collection chamber.i have assessed the vent;vent-settings.call light/telephone placed w/in the reach of the pt.
--- NOTE | 2018-06-27 | NUR ---
pt.assessed.v/s assessed;values w/in normal limits.i have assessed the vent/vent settings.i have attended to the oral/trach care. i have attended to the oral/trach suction.i have assessed the picc line;intact;patent:iv;fluids infusing.i have assessed the g-tube;intact;patent;g-tube feed infusing./i have assessed the colostomy bag:intact;fecal material present.i have assessed the ortiz catheter;intact;patent;urine content present.i have assessed the wound vac;wound drainage present w/in the collection chamber. pt.assessed for cleanliness.pt.repositioned.general status stable.respiratory status stable.02-sat%=99%.i have administer the d3i-hytdp flush.call light/telephone placed w/in the reach of the pt.
[2018-06-27 00:23] VITALS: BP_SYST 136
--- NOTE | 2018-06-27 02:00 | NUR ---
pt.assessed.pt.assessed for cleanliness.pt.repositioned.i have assessed the vent/vent settings.i have attended to the oral/trach care. i have attend to the oral/trach suction.i have assessed the picc line.intact;patent;iv fluids infusing.i have assessed the g-tube; intact;patent;g-tube feed.infusing.i have assessed the colotomy bag;intact;patent;fecal material present.i have released the accumulated air.i have assessed the ortiz catheter;intact;patent;urine content present.i have assessed the wound vac intact;patent;wound drainage present w/in the collection chamber.general status stable.respiratory stable.call light/telephone placed w/in the reach of the pt.
--- NOTE | 2018-06-27 04:00 | NUR ---
pt.assessed.trach/vent assessed.vent-settings assessed.i have attended to the oral/trach care.i have attended to the oral/trach suction. i have assessed the picc line;intact;patent;chg-bath attended to.i have changed the picc line dsg.iv fluids infusing.i have assd the g-tube.intact;patent;g-tube feed infusing.i have cleansed the g-tube insertion sute.i have changed the g-tube dsg.i have assessed the colotomy;intact;patent;fecal material present;loose;liquid.i have assessed the colostomy area;i have changed the colotomy bag.i have changed the jolanta valve;g-tube.feed.i have assessed the ortiz catheter;intact;patent:urine content present.i have changed the folery cath strap lock.i have assessed the wound vac;intact;patent;wound drainage present,pt.cleaned.pt.repositioned.call light/telephone placed w/in the reach of the pt.
[2018-06-27] MEDS: ALBUTEROL SULFATE 0.083% 2.5 MG/3 ML VIAL.NEB INH SCH ×6 (04:05→23:06)
[2018-06-27] MEDS: AMOXICILLIN 500 MG CAPSULE GT SCH (05:13)
--- NOTE | 2018-06-27 06:54 | NUR ---
pt.assessed.i have assessed the vent/vent settings.i have attended to the oral/trach care.i have attended to the oral/trach suction. i have assessed the picc line;intact;patent.i have assessed the g-tube;intact patent:g-tube feed infusing.i have assessed the colostomy bag;intact;patent;fecal material present;loose consistency.i have assessed the ortiz catheter;intact;patent;urine content present.i have assessed the wound vac;wound drainage present w/in the collection chamber.pt.assessed for cleanliness.pt cleaned. pt.repositioned.call light/telephone placed w/in the reach of the pt.i have administer amoxiciilin:g-tube,
--- NOTE | 2018-06-27 07:30 | NUR ---
Am rounds Patient resting in bed, nonverbal, vent dependent. Tidal volume 500, Fio2 30%, peep 5, AC 14. O2 sat 100%. Lung sounds clear. No drainage on trach site. GT in place, no redness, no drainage. GT feeding tolerating well, no residual noted. No nausea, no vomiting at this time. PICC line intact, patent, and infusing as ordered. F/C in place, draining yellow urine. Colostomy in place, stoma pink, bowel sounds active. Wound vac in place draining dark red drainage. SCD in place. 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 Bed in lowest position, bed alarm on, call light within reach.
[2018-06-27 08:30] VITALS: BP_SYST 115
[2018-06-27] MEDS: CYANOCOBALAMIN 1000 mCg TABLET GT SCH (09:04)
[2018-06-27] MEDS: CHOLECALCIFEROL (VITAMIN D3) 2,000 UNIT TABLET GT SCH (09:04)
[2018-06-27] MEDS: METOCLOPRAMIDE HCL 10 MG/10 ML UDC GT SCH ×4 (09:04→22:21)
[2018-06-27] MEDS: LANSOPRAZOLE 30 MG CAPSULE.DR GT SCH (09:04)
[2018-06-27] MEDS: CALCIUM CARBONATE/VITAMIN D3 1 TAB TABLET GT SCH ×2 (09:04→22:21)
[2018-06-27] MEDS: ASCORBIC ACID 500 MG TABLET GT SCH (09:04)
[2018-06-27] MEDS: POTASSIUM CHLORIDE 20 MEQ/PKT PACKET GT SCH (09:05)
[2018-06-27] MEDS: VITAMIN B COMPLEX WITH C TAB/CAP GT SCH (09:06)
[2018-06-27] MEDS: LevETIRAcetam 500 MG/5 ML UDC ORAL LIQUID GT SCH ×2 (09:07→22:21)
[2018-06-27] MEDS: LACTULOSE 20 GM/30 ML UDC GT SCH ×2 (09:15→22:21)
--- NOTE | 2018-06-27 10:49 | NUR ---
Discharge Planning: [facility] (f [phone]) Will Call [facility] , [facility] (f [phone] p [phone]) is aware pt to DC today, Faby asked for a couple of days of supplies for wound vac. On the last discharge supplies were delayed, DCP relayed to nurse. DCP also requested a DC order for resuming RT from [facility] from doctor from nurse.
[2018-06-27] MEDS: INSULIN REGULAR, HUMAN 100 UNITS/ML, 10 ML VIAL (novoLIN R) SUBCUT PRN ×3 (11:35→22:24)
[2018-06-27] MEDS: VANCOMYCIN HCL 750 MG in NS 250 ML IV SCH (11:38)
[2018-06-27 12:34] VITALS: BP_SYST 111
--- NOTE | 2018-06-27 12:45 | NUR ---
Nutrition F/U RD reviewed pt's current EMR record including diet Hx, physician notes, nursing notes, pertinent labs/meds, care trends, and care activity. Subjective information: Pt seen in bed, TF infusing at time of visit, eyes opened. RN denied any N/V since early this morning. Pt is tolerating TF well w/ no residual this morning. Wound vac in place draining dark red drainage per RN notes. Pt received 3 units of PRBC earlier today per bed huddle discussion. From previous RD visit, physician was to clarify free water flush order, on 06/24/18 order for Free Water Flush of 150ml Q4H. A total of 2252ml free water w/ TF formula. RN reported that an additional 100ml or more are given to pt for medication and Marques administration. Pt is likely receiving excessive fluid. Bed scale weight 06/27: 186 lb --- may be skewed. Current EN regimen provides: 2176 kcal, 106 gm protein and 2252ml free water daily. Current Diet Order/Nutrition Support: Glucerna 1.2 at 70ml/hr, Marques BID, FWF 150ml Q4H via GT x 3 days Estimated Energy Expenditure (kcals/day) 4050-3990 kcal/day (30-35 kcal/kg Adj IBW for wound healing) Estimated Protein Required (g/day) 87-116 gm/day (1.5-2 gm/kg Adj IBW for wound healing) Estimated Fluid Required (l/day) Per MD (Hx of CKD) Problem/Etiology/Signs/Symptoms Increased nutritional needs related to metabolic demands as evidenced by estimated nutritional requirements for wound healing. (*ongoing) Expected Outcomes/Goals - Monitor tolerance to EN support and intake w/ goal of pt meeting at least 90% of estimated nutritional needs, labs trending WNL, normal GI function, and skin integrity/wt maintenance Dietitian Recommendations * Recommend continuing Glucerna 1.2 at 70 ml/hr, Marques BID via GT Provides: 2176 kcal/day, 106 gm protein/day, and 1352 ml free water/day Meets: 109% of upper end of estimated caloric needs and 91% of upper end of estimated protein needs * Recommend Free Water Flushes 150ml Q6H via GT. Follow Up High Risk: F/U in 2-3days
--- NOTE | 2018-06-27 13:00 | NUR ---
MD notification:: Small bowel series results reported to Dr. Valentine, new order for lab test received.
[2018-06-27 13:21] LABS: BASOPHILS # (AUTO) 0.1 K/uL (0.0-0.2); BASOPHILS % (AUTO) 0.4 % (0.0-2.0); EOSINOPHILS # (AUTO) 0.3 K/uL (0.0-0.4); EOSINOPHILS % (AUTO) 2.5 % (0.0-4.0); HEMATOCRIT 29.5 % (36-48); HEMOGLOBIN 9.3 g/dL (12.0-16.0); LYMPHOCYTES # (AUTO) 0.9 K/uL (1.0-5.5); LYMPHOCYTES % (AUTO) 7.7 % (20.5-51.5); MEAN CORPUSCULAR HEMOGLOBIN 26 pg (27-31); MEAN CORPUSCULAR HGB CONC 31 % (32-36); MEAN CORPUSCULAR VOLUME 84 fL (79.0-98.0); MONOCYTES # (AUTO) 0.6 K/uL (0.0-1.0); MONOCYTES % (AUTO) 5.4 % (1.7-9.3); RED BLOOD CELL COUNT(AUTO) 3.54 MIL/uL (4.2-6.2); RED CELL DISTRIBUTION WIDTH 16.3 % (9.0-15.0); WHITE BLOOD COUNT (AUTO) 11.9 K/uL (4.8-10.8)
[2018-06-27 13:28] LABS: CALCIUM 8.9 mg/dL (8.4-11.0); CREATININE 1.03 mg/dL (0.55-1.30); POTASSIUM 5.3 mmol/L (3.5-5.1)
[2018-06-27 13:38] LABS: PLATELET COUNT (AUTO) 117 K/uL (130-430)
[2018-06-27] MEDS ORDERED: SODIUM POLYSTYRENE SULFONATE 15 GM/60 ML UDBTL GT ONE (14:15)
--- NOTE | 2018-06-27 15:00 | NUR ---
Colostomy care: Colostomy leaked. CLeansed stoma with normal saline, sure prep applied into the surrounding skin, new pouch applied. Stoma is pink, no skin breakdown.
[2018-06-27 16:28] VITALS: BP_SYST 131
[2018-06-27] MEDS: SOD FERRIC GLUC COMPLEX/SUC 125 MG in NS 100 ML IV SCH (16:48)
[2018-06-27] MEDS ORDERED: BALSAM PERU/CASTOR OIL 60 GM OINT...G. TP SCH (17:45)
--- NOTE | 2018-06-27 19:01 | NUR ---
Closing note Patient resting in bed at this time, PICC line in place, patent and infusing as ordered. Colostomy bag in place, stoma pink. GT feeding tolerating well, no residual noted, no vomiting. Patient turned and repositioned as ordered. Wound vac in place draining dark red drainage. SCD in place, offloaded heels using pillows. On Contact isolation, aspiration, seizure, and fall precautions, reinforced. Bed in lowest position, bed alarm on. All needs met at this time.
--- NOTE | 2018-06-27 19:20 | NUR ---
Opening notes received report. Patient resting in bed. No signs of distress noted. Patient tolerated current vent settings, O2 sat 100%. PICC line patent and intact, no signs of infiltration noted. Feeding infusing through g-tube. Hernandez catheter in place draining urine. Colostomy in place. Wound vac intact, no leakage noted. Bilateral SCDs in place. Call light with the patient. Safety precautions in place.
[2018-06-27 20:00] VITALS: BP_SYST 130
--- NOTE | 2018-06-27 20:30 | NUR ---
Daughter at bedside Updated daughter on patients plan of care. Daughter verbalized understanding. All questions and concerns answered. No other needs at this time.
[2018-06-27] MEDS: COLISTIMETHATE SODIUM 150 MG VIAL INH SCH (21:00)
--- NOTE | 2018-06-27 22:30 | NUR ---
Medications/Oral care Scheduled medications given via g-tube. No residual noted. Educated the action and side effects of medications. Patient tolerated well. No signs of allergic reaction noted. Oral care done at this time. Patient repositioned to comfort. No other needs. Call light with the patient. Safety precautions in place.
--- NOTE | 2018-06-28 00:51 | NUR ---
Repositioned to comfort. No signs of distress noted. Safety precautions in place.
[2018-06-28 01:32] VITALS: BP_SYST 117
--- NOTE | 2018-06-28 01:44 | NUR ---
Oral care done at this time. Patient repositioned to comfort. No other needs. Call light with the patient. Safety precautions in place.
--- NOTE | 2018-06-28 03:30 | NUR ---
Sleeping Patient sleeping. No signs of distress noted. Breathing even and unlabored. Safety precautions in place.
[2018-06-28] MEDS: ALBUTEROL SULFATE 0.083% 2.5 MG/3 ML VIAL.NEB INH SCH ×5 (03:57→19:42)
--- NOTE | 2018-06-28 05:05 | NUR ---
Hygiene/Oral care/Tubefeeding Hygiene and oral care done. Patient repositioned to comfort. New bottle of tubefeeding hung. Marques given via g-tube. No residual noted. No other needs. Call light with the patient. Safety precautions in place.
[2018-06-28] MEDS: INSULIN REGULAR, HUMAN 100 UNITS/ML, 10 ML VIAL (novoLIN R) SUBCUT PRN ×3 (06:04→18:05)
--- NOTE | 2018-06-28 06:30 | NUR ---
Closing notes Patient resting in bed. No signs of distress noted. Patient tolerating current vent settings. O2 sat 100%. PICC line patent and intact, saline locked. G-tube intact, infusing feeding. Colostomy bag intact. Hernandez catheter in place, draining urine. Bilateral SCDs in place. Wound vac intact, no leakage noted. All needs met throughout the shift. Call light with the patient. Safety precautions in place. Will endorse care to day shift RN.
--- NOTE | 2018-06-28 07:55 | NUR ---
OPENING NOTES, PT SEEN IN BED, PT IS AWAKE, EYES OPEN. NO SOB, ON TRACHE TO VENT. G-TUBE FEEDING ONGOING, NO RESIDUAL NOTED, COLOSTOMY BAG CLEARED OF AIR, ONLY ABOUT 10 CC OF YELLOWISH WATER STOOL NOTED. WILL CONT TO MONITOR PT.
[2018-06-28 07:59] VITALS: BP_SYST 117
--- NOTE | 2018-06-28 08:10 | NUR ---
RT NOTES Called to bedside, found trach tube out, was pulled by pt. Cuff was deflated before trach tube was re-inserted. Bilateral b/s and chest rise noted. Sxn catherter was able to pass through without issues. Sxn moderate amount of bloody secretions. Pt. saturation 98%. No respiratory distress noted.
--- NOTE | 2018-06-28 08:10 | NUR ---
PT SEEN AFTER VENT ALARM, NOTED PT PULLED OUT HER TRACHE, PT'S O2 WA S 79% AT THAT TIME. R.T WAS CALLED AND PLACED IT BACK IN PLACE, O2 WENT UP TO 96% AFTER. PT'S FAMILY WAS MADE AWARE.
--- NOTE | 2018-06-28 08:15 | NUR ---
FAMILY AWARE OF WRIST RESTRAINTS MAGDI RN NOTIFIED DAUGHTER SHARITA RE- RIGHT WRIST RESTRAINTS DUE TO PATIENT'S ATTEMPTED TO PULL OUT THE TRACHE TUBE. SHARITA AGREED TO PUT WRIST RESTRAINTS TO PATIENT.
[2018-06-28] MEDS: COLISTIMETHATE SODIUM 150 MG VIAL INH SCH ×2 (09:07→21:49)
[2018-06-28] MEDS: METOCLOPRAMIDE HCL 10 MG/10 ML UDC GT SCH ×4 (09:23→21:45)
[2018-06-28] MEDS: LACTULOSE 20 GM/30 ML UDC GT SCH ×2 (09:24→21:45)
[2018-06-28] MEDS: ASCORBIC ACID 500 MG TABLET GT SCH (09:25)
[2018-06-28] MEDS: CALCIUM CARBONATE/VITAMIN D3 1 TAB TABLET GT SCH ×2 (09:25→21:45)
[2018-06-28] MEDS: CHOLECALCIFEROL (VITAMIN D3) 2,000 UNIT TABLET GT SCH (09:25)
[2018-06-28] MEDS: LANSOPRAZOLE 30 MG CAPSULE.DR GT SCH (09:25)
[2018-06-28] MEDS: CYANOCOBALAMIN 1000 mCg TABLET GT SCH (09:25)
[2018-06-28] MEDS: VITAMIN B COMPLEX WITH C TAB/CAP GT SCH (09:26)
[2018-06-28] MEDS: LevETIRAcetam 500 MG/5 ML UDC ORAL LIQUID GT SCH ×2 (09:27→21:45)
--- NOTE | 2018-06-28 10:43 | NUR ---
pt in bed, eyes close, appears sleeping. no s/s pain. no sob. continued to be on vent, g-tube feeding infusing well. will cont to monitor.
[2018-06-28 12:48] VITALS: BP_SYST 113
--- NOTE | 2018-06-28 15:04 | NUR ---
PT IN BED, NO S/S PAIN, NO SOB, PT TURNED AND REPOSITIONED Q2 HOURS, NO CHANGE IN VENT SETTINGS. PT ON R. WRIST RESTRAINT. WILL CONT TO MONITOR.
[2018-06-28 15:39] VITALS: BP_SYST 116
--- NOTE | 2018-06-28 16:31 | NUR ---
DC Planning: per EDWARDO Dailey : dc plan is to discharge pt tomorrow, and is waiting for dr. Morales for home IV abx reeval for home infusion , and dr. Valentine to give the final dc order.
--- NOTE | 2018-06-28 16:45 | NUR ---
WOUND RE-EVALUATION: Late note for 06/28/18 at 1645 secondary to patient care. Wound Consult received from Dr. Valentine. Thank you, Dr. Valentine, for the consult. Patient received in a Windsor Bed with an Isoflex ENE mattress with low air-loss therapy initiated, awake, alert, nonverbal, nonresponsive to verbal commands. Patient is unable to turn in bed independently. Jeff Score is a 13. Past Medical History: CVA, residual Left-Sided Hemiplegia, Dysphagia, Hypertension, Diabetes Mellitus Type II, Stage IV Sacral-Coccygeal pressure ulcer, Hyperlipidemia, Anemia, Atherosclerosis, Neurogenic Bladder. Recent Labs: WBC 11.9, RBC 3.54, hemoglobin 9.3, hematocrit 29.5, platelets 117, BUN 39, creatinine 1.03, GFR 57, glucose 208, albumin 1.8, potassium 5.3. Intrinsic factors that delay wound healing: Diabetes Mellitus, Anemia. Extrinsic factors that delay wound healing: Immobility. Patient received 3 units blood of blood products (received 5 units on last admission). Wound Assessment: 1. Sacral-Coccygeal/Buttocks areas: Stage IV Pressure Ulcer, present on admission. Wound bed has 50% yellow tissue, 5% black tissue, 45% pink tissue. Mild odor, scant sanguineous drainage. Periwound pink with maceration. Wound measures 12.5 cm x 20.0 cm x 3.2 cm. Undermining present from 7-1 o-clock, measuring 5.1 cm at 9 o'clock, 5.1 cm at 10 o'clock, 1.0 cm at 12 o'clock; Wound tunnels/connects to left buttock wound at 7-8 o'clock. Recommend continue: Cleanse wound with normal saline. Apply moisture barrier cream to bowen-wound. Apply Venelex ointment to wound bed. black granufoam dressing to size and place into wound and also connect to left buttock wound. Cover with VAC drape. Make a bridge: Cut a hole into wound dressing, lay Vac drape from wound to non-bony portion of hip. Connect black or any foam to wound and lay over VAC drape to the hip. Apply suction attachment to hip portion of granufoam. Apply more VAC drape on top of bridged granufoam. Connect to wound VAC. Run wound VAC at 125 mmHg, continuous. Perform wound care q Simón Wednesday Dimitri, and as needed for dressing soiling or dislodgement. 2. Left Buttock, Inferior and Left Lateral to Wound 1: Wound bed has 60% yellow tissue, 40% pink tissue. Mild odor, small sanguineous drainage. Wound measures 6.5 cm x 5.2 cm x 3.5 cm. Undermining present from 9-2 o-clock, measuring 0.9 cm at 9 o'clock, 7.4 cm at 12 o'clock. Tunnel at 1-2 o'clock connects to Sacral wound. Recommend continue: Cleanse wound with normal saline. Apply moisture barrier cream to bowen-wound. Apply Venelex ointment to wound bed. black granufoam dressing to size and place into wound and also connect to Sacral wound through tunnel. Cover with VAC drape. Run wound VAC at 125 mmHg, continuous. Perform wound care q Tuesday, and as needed for dressing soiling or dislodgement. 3. Left Buttock, Inferior and also left lateral to Wound 2: Multiple areas of scar tissue from previous wounds, present on admission. No odor, no drainage. Periwound intact. Recommend continue: Cleanse involved areas with mild soap and water. Pat dry. Apply moisture barrier cream to involved areas. Perform site care 4 times a day, and as needed for soiling. 4. Right upper outer sacral area: Skin tear from VAC drape, present on admission. Wound bed has 100% pink tissue. No odor, scant serous drainage. Periwound intact. Wound measures 1.4 cm x 1.1 cm. 5. Right outer sacral area: Skin tear from VAC drape, present on admission. Wound bed has 100% pink tissue. No odor, scant serous drainage. Periwound intact. Wound measures 1.0 cm x 0.9 cm. Recommend continue: Cleanse skin tears with normal saline. Apply moisture barrier cream to skin tears. Apply hydrogel to any portion of skin care not covered by moisture barrier cream. Cover with foam dressing. Perform wound care daily, and as needed for dressing soiling or dislodgment. 6. Left parietal scalp: chronic wound, present on admission. Wound bed has 90% black scab, 10% yellow scab. No odor, no drainage. Periwound intact. Wound measures 4.0 cm x 2.0 cm. 7. Parietal scalp, right lateral and inferior to wound 6: chronic wound, present on admission. Wound bed has 100% brown scab. No odor, no drainage. Periwound intact. Wound measures 0.8 cm x 1.2 cm. Recommend continue: Cover sites with non-adhesivefoam dressings. Secure with hairnet. Check sites every shift. Change dressings daily, and as needed for dressing soiling or dislodgment. 8. Right medial, lateral, posterior heel: Area of brown discoloration, present on admission. No odor, no drainage. Site measures 4.8 cm x 2.2 cm. Recommend continue: Elevate, offload and float bilateral feet with one pillow lengthwise under each extremity at all times. Do not allow any portion of feet or heels to touch bed or other surfaces at any time. Also recommend continue: Reposition patient side to side only every hour with pillow support (place one pillow underneath trunk and one pillow underneath pelvic area). Off-load pressure areas with pillows for pressure re-distribution. Offload, elevate and float bilateral heels with one pillow lengthwise under each extremity at all times. Perform skin care and monitor skin integrity Q shift. Use moisture barrier cream on buttocks and other moisture susceptible areas QID and as needed for soiling. Maintain patient on a low air-loss mattress.
--- NOTE | 2018-06-28 17:20 | NUR ---
wound care done by wound care nurse ayan and student nurses, pt's daughter at bedside. pt tolerated well.
[2018-06-28] MEDS ORDERED: cefTRIAXone 2 GM in D5W 50 ML IV SCH (18:00)
[2018-06-28] MEDS: SOD FERRIC GLUC COMPLEX/SUC 125 MG in NS 100 ML IV SCH (18:02)
[2018-06-28] MEDS: EPOETIN ALFA 4,000 UNITS/ML VIAL SUBCUT SCH (18:06)
--- NOTE | 2018-06-28 18:33 | NUR ---
Closing notes, pt has been stable, had an episode pulling out trache this am. restrain was ordered. r. t. able to place back trach in place. pt stable. wound care done with ayan, wound nurse and nursing students. pt tolerated well. dc plan with abx and home health nurse. will endorse to night rn.
--- NOTE | 2018-06-28 19:51 | NUR ---
OPENING NOTES Pt and endorsement received from day shift nurse. Pt is resting in bed with both eyes closed, with visible chest rise and fall with unlabored breathing noted. Pt on mech vent with settings, AC: 14, TV: 500, FiO2: 30%, PEEP: 5. Pt on tube feeding with Glucerna 1.2 at 70ml hr and infusing well. Pt on saline lock on right upper arm PICC. Pt on ortiz catheter with yellow urine noted in the bag and hanged below bladder level. Pt with wound vac and with continuous suctioning noted. Safety precautions in place with 3 side rails up, bed alarm on, locked and in lowest position. Call light with pt. Will continue to monitor.
[2018-06-28 21:34] VITALS: BP_SYST 136
--- NOTE | 2018-06-28 21:45 | NUR ---
MED PASS Assessed for bowel sounds and is active upon auscultation. Residual is 0. All PO meds given as ordered. Pt tolerated well. Oral care rendered. No signs of acute distress or SOB noted. Aspiration precautions maintained with head elevated with 45degrees. Seizure pads in place. Safety precautions in place and call light with pt. Will continue to monitor.
--- NOTE | 2018-06-28 23:00 | NUR ---
DAUGHTER AND FIPAVAN AT NURSE'S STATION Pt's daughter and fiance wanted to see pt's wound photos. Explained to them we are not allowed to show photos per hospital policy and that they have to go to medical records in the morning. Daughter insisted and wants to talk to the household appliance installer. Called [facility] to explain policy to the daughter and fipavan.
--- NOTE | 2018-06-29 00:14 | NUR ---
FS BLOOD GLUCOSE Pt's FS blood glucose was 170mg/dl. Regular insulin 2units SQ given per protocol. Oral care rendered and turning done. Pt tolerated well. No signs of acute distress or SOB noted. Safety, aspiration and seizure precautions in place. Call light with pt. Will continue to monitor.
[2018-06-29] MEDS: INSULIN REGULAR, HUMAN 100 UNITS/ML, 10 ML VIAL (novoLIN R) SUBCUT PRN ×3 (00:16→11:36)
[2018-06-29 01:10] VITALS: BP_SYST 144
[2018-06-29] MEDS: ALBUTEROL SULFATE 0.083% 2.5 MG/3 ML VIAL.NEB INH SCH ×5 (01:10→15:35)
--- NOTE | 2018-06-29 02:00 | NUR ---
ROUNDS Turning done with VIOLETA Bear and pt tolerated well. No changes in mech vent settings. Tube feeding infusing well. No signs of acute distress or SOB noted. Safety, aspiration and seizure precautions in place. Call light with pt. Will continue to monitor.
--- NOTE | 2018-06-29 04:05 | NUR ---
ROUNDS Turning done with VIOLETA Bear and pt tolerated well. Oral care rendered. Tube feeding infusing well. Wound vac on continuous suctioning noted. No signs of acute distress or SOB noted. Safety, aspiration and seizure precautions in place. Call light with pt. Will continue to monitor.
--- NOTE | 2018-06-29 05:08 | NUR ---
FS BLOOD GLUCOSE Pt's FS blood glucose was 176mg/dl, Regular insulin 2 units SQ given per protocol. Will continue to monitor.
--- NOTE | 2018-06-29 06:41 | NUR ---
CLOSING NOTES Pt is resting in bed with both eyes closed, with visible chest rise and fall with unlabored breathing noted. Mech vent settings are unchanged. Tube feeding is infusing well. Hernandez bag kept hanged below bladder level. Wound vac on continuous suctioning noted. Turning done and pt tolerated well. All needs attended throughout the shift. Aspiration precautions maintained with head elevated at 40-45degrees. Seizure pads in place. Safety precautions maintained with 3 side rails up, bed alarm on, locked and in lowest position. Call light with pt. Will endorse to day shift nurse.
[2018-06-29] MEDS: COLISTIMETHATE SODIUM 150 MG VIAL INH SCH (07:22)
--- NOTE | 2018-06-29 07:25 | NUR ---
Opening Note patient resting in bed, eyes closed, breathing unlabored and symmetrical, positioned with pillow support, safety, isolation and aspiration precautions in place, will continue to monitor
[2018-06-29 08:00] VITALS: BP_SYST 139
[2018-06-29] MEDS: LevETIRAcetam 500 MG/5 ML UDC ORAL LIQUID GT SCH (10:21)
[2018-06-29] MEDS: CYANOCOBALAMIN 1000 mCg TABLET GT SCH (10:22)
[2018-06-29] MEDS: CHOLECALCIFEROL (VITAMIN D3) 2,000 UNIT TABLET GT SCH (10:22)
[2018-06-29] MEDS: LANSOPRAZOLE 30 MG CAPSULE.DR GT SCH (10:22)
[2018-06-29] MEDS: CALCIUM CARBONATE/VITAMIN D3 1 TAB TABLET GT SCH (10:22)
[2018-06-29] MEDS: ASCORBIC ACID 500 MG TABLET GT SCH (10:22)
[2018-06-29] MEDS: LACTULOSE 20 GM/30 ML UDC GT SCH (10:22)
[2018-06-29] MEDS: METOCLOPRAMIDE HCL 10 MG/10 ML UDC GT SCH ×3 (10:22→17:36)
--- NOTE | 2018-06-29 10:25 | NUR ---
Medications meds crushed and administered through g-tube, flushed before and after administration, patient tolerated well, safety, isolation and aspiration precautions in place, will continue to monitor patient
[2018-06-29] MEDS: VITAMIN B COMPLEX WITH C TAB/CAP GT SCH (10:41)
--- NOTE | 2018-06-29 11:13 | NUR ---
Discharge Planning: DCP faxed pt DC order to [facility] (f [phone] p [phone]), [facility] (f [phone] p [phone]) for RT. DCP to follow up. DCP called [facility] ([phone]) for transportation no RT/RN available. [facility] ([phone]) No CCT, BLS only [facility] ([phone]) Does CCT, no RT today [facility] ([phone]) Does CCT -but stated Medicare A&B would not pay for transportation. not take secondary because Medicare A&B is primary. [facility] ([phone]) Does CCT, no RT today. [facility] ([phone]) Does CCT -but stated Medicare A&B would not pay for transportation. not take secondary because Medicare A&B is primary. DCP called [facility] to inquire. Addendum: 06/29/18 at 1443 by Drea LU Continued: DCP called [facility] ([phone]) to inquire if he had a company he could recommend for a trach patient to her home. DCP made CM aware of medicare not paying for transportation, secondary would need to authorization CM got one Auth#[id number]*PTR transportation arranged with [facility] ([phone]) 6:00pm P/U with the help of [facility] ([phone]). Daughter and pt nurse made aware. [facility] ([phone]) 6:00pm P/U [facility] (f [phone] p [phone]) [facility] (f [phone] p [phone]) Addendum: 06/29/18 at 1539 by Drea Dangelo DP Per Faby at [facility] (f [phone] p [phone]) requested wound care notes for June and May DCP faxed.
--- NOTE | 2018-06-29 11:41 | NUR ---
Blood Sugar Assessed/Dr. Valentine Rounded insulin provided per sliding scale, patient resting in bed, pillow support, HOB elevated, safety, isolation and aspiration precautions in place, will continue to monitor patient
--- NOTE | 2018-06-29 12:02 | NUR ---
KIERRA MGT: KIERRA SPOKE WITH TRELL (KIERRA @ [facility] ) @ [phone] AND TRANSPORTATION AUTH HAS BEEN OBTAINED. TRANSPORTATION AUTH NUMBER IS [id number]*PTR. PER TRELL, THEY ARE CONTRACTED WITH [facility]. IF [facility] UNABLE TO PROVIDE TRANSPORTATION. CAN USE ANY OTHER AMBULANCE SERVICE.
[2018-06-29 12:38] VITALS: BP_SYST 124
--- NOTE | 2018-06-29 13:32 | NUR ---
Nutrition F/U RD reviewed pt's current EMR record including diet Hx, physician notes, nursing notes, pertinent labs/meds, care trends, and care activity. Subjective information: Pt seen resting in bed w/ TF infusing as per MD orders. So far, 913 ml infused at time of RD visit. No evidence of Marques modular at bedside. RN reported that pt has been tolerating TF well, and verified that pt is receiving water flush and Marques as per MD order. Last Marques administered by assistant casino shift manager per RN report. RN also stated that stool output has been good via colostomy. Plans for D/C w/ home health per MD orders. Current Diet Order/Nutrition Support: Glucerna 1.2 at 70 ml/hr, Marques BID, Free Water Flush 150 ML q6h via GT x2 days Estimated Energy Expenditure (kcals/day) 3248-3059 kcal/day (30-35 kcal/kg Adj IBW for wound healing) Estimated Protein Required (g/day) 87-116 gm/day (1.5-2 gm/kg Adj IBW for wound healing) Estimated Fluid Required (l/day) Per MD (Hx of CKD) Problem/Etiology/Signs/Symptoms Increased nutritional needs related to metabolic demands as evidenced by estimated nutritional requirements for wound healing. *ongoing Expected Outcomes/Goals - Monitor tolerance to EN support and intake w/ goal of pt meeting at least 90% of estimated nutritional needs, labs trending WNL, normal GI function, and skin integrity/wt maintenance Dietitian Recommendations * Recommend continuing Glucerna 1.2 at 70 ml/hr, Marques BID, Free Water Flush 150 ML q6h via GT Provides: 2176 kcal/day, 106 gm protein/day, and 1952 ml free water/day Meets: 109% of upper end of estimated caloric needs and 91% of upper end of estimated protein needs Follow Up Moderate Risk: F/U in 3-5 days
--- NOTE | 2018-06-29 13:38 | NUR ---
Dietitian Recommendations * Recommend continuing Glucerna 1.2 at 70 ml/hr, Marques BID, Free Water Flush 150 ML q6h via GT Provides: 2176 kcal/day, 106 gm protein/day, and 1952 ml free water/day Meets: 109% of upper end of estimated caloric needs and 91% of upper end of estimated protein needs LP, RD Please refer to Nutrition F/U for details.
--- NOTE | 2018-06-29 13:55 | NUR ---
Meds given at this time as scheduled, patient resting in bed, eyes closed, breathing unlabored and symmetrical, HOB remains elevated, safety, aspiration and isolation precautions in place, will continue to monitor
--- NOTE | 2018-06-29 16:30 | NUR ---
Wound Care Performed/Colostomy bag changed at this time, photos taken per DC protocol, patient tolerated well, colostomy bag changed, safety isolation and aspiration precautions remain in place, will continue to monitor
[2018-06-29 17:18] VITALS: BP_SYST 142
--- NOTE | 2018-06-29 17:30 | NUR ---
Blood Sugar Assessed no insulin needed per sliding scale, patient resting in bed, no signs of distress, safety, isolation and aspiration precautions remain in place, will continue to monitor
[2018-06-29] MEDS: SOD FERRIC GLUC COMPLEX/SUC 125 MG in NS 100 ML IV SCH (17:36)
[2018-06-29 18:07] VITALS: BP_SYST 142
--- NOTE | 2018-06-29 18:47 | NUR ---
D/C Patient Ambulance given medication reconciliation form and D/C instructions. Exit Care provided. Patient ready for discharge to home. Patient in stable condition, woud dressing intact, all belongings sent with patient, daughter notified of transfer and to expect ambulance at home, verbalized understanding
--- NOTE | 2018-07-04 15:45 | NUR ---
Discharge Follow Up Phone Call [employer] phoned the number listed for patient, , but the memory was full. [employer] INSPECTOR phoned patient's daughter, Maci [phone]. She stated that patient was doing okay. [facility] home health and [facility] are continuing with services. The wound care doctor was seen yesterday and he will accept patient for follow up. She has some concerns that were passed on to PI. No other questions or concerns.
== END 2018-06-29 18:47 | disposition home health service (06) | DRG 870 ==
LOC: SED 14:03 → STU 17:02
PROVIDERS: ADMIT Internal Medicine; ATTEND Internal Medicine
PROC: 5A1955Z Respiratory Ventilation, Greater than 96 Consecutive Hours (ICD-10-PCS; principal; 2018-06-23)
PROC: 30233N1 Transfusion of Nonautologous Red Blood Cells into Peripheral Vein, Percutaneous Approach (ICD-10-PCS; 2018-06-23)
DX: A41.9 Sepsis, unspecified organism (principal); L89.304 Pressure ulcer of unspecified buttock, stage 4; E43 Unspecified severe protein-calorie malnutrition; G93.41 Metabolic encephalopathy; L89.154 Pressure ulcer of sacral region, stage 4; J96.10 Chronic respiratory failure, unspecified whether with hypoxia or hypercapnia; Z99.11 Dependence on respirator [ventilator] status; N39.0 Urinary tract infection, site not specified; J44.0 Chronic obstructive pulmonary disease with (acute) lower respiratory infection; M86.8X8 Other osteomyelitis, other site; I69.354 Hemiplegia and hemiparesis following cerebral infarction affecting left non-dominant side; J95.851 Ventilator associated pneumonia; D50.8 Other iron deficiency anemias; G40.909 Epilepsy, unspecified, not intractable, without status epilepticus; I70.90 Unspecified atherosclerosis; N31.2 Flaccid neuropathic bladder, not elsewhere classified; J98.4 Other disorders of lung; I48.0 Paroxysmal atrial fibrillation; D63.8 Anemia in other chronic diseases classified elsewhere; B96.4 Proteus (mirabilis) (morganii) as the cause of diseases classified elsewhere; E11.22 Type 2 diabetes mellitus with diabetic chronic kidney disease; E78.5 Hyperlipidemia, unspecified; F03.90 Unspecified dementia, unspecified severity, without behavioral disturbance, psychotic disturbance, mood disturbance, and anxiety; I12.9 Hypertensive chronic kidney disease with stage 1 through stage 4 chronic kidney disease, or unspecified chronic kidney disease; N18.9 Chronic kidney disease, unspecified; Z16.24 Resistance to multiple antibiotics; Z78.9 Other specified health status; Z93.0 Tracheostomy status; Z79.2 Long term (current) use of antibiotics; Z79.4 Long term (current) use of insulin; Z79.899 Other long term (current) drug therapy; Z68.29 Body mass index [BMI] 29.0-29.9, adult
CPT/HCPCS: 36415; 71045; 74250-TC; 80048; 80053; 80202-TC; 81000-TC; 82550-TC; 82962; 83540-TC; 83550-TC; 84484; 85007; 85025; 85027; 85044-TC; 85610-TC; 85730-TC; 86886; 86900; 86901; 86920; 87070-TC; 87081; 87086; 87186-TC; 87205-TC; 93005; 94002; 94003; 94640; 94760; 99285; A5061; A6550; G0378; J0696; J0770; J0885; J1815; J2916; J3370; J7030; J7050; J7060; J7613; J7620; J8597; P9021; Q9963

== ENCOUNTER 2018-07-20 13:03 | Observation (INO) | payer OTHER, BC ==
[~2018-07-20] VITALS: Ht 162.6 cm; Wt 71.7 kg
[~2018-07-20 13:03] MED LIST changes: -AMOX500C2 PO; -POTA10CA68 GT; -Vancomycin Per Pharmacy XX
[2018-07-20 15:45] VITALS: BP_SYST 140
[2018-07-20 16:34] VITALS: BP_SYST 140
[2018-07-20 17:50] VITALS: BP_SYST 173
[2018-07-20] MEDS ORDERED: cloNIDine HCL 0.2 MG TABLET GT PRN (18:00)
[2018-07-20 18:34] VITALS: BP_SYST 159
[2018-07-20 18:35] VITALS: BP_SYST 151
== END 2018-07-20 19:15 | disposition home health service (06) ==
LOC: INTOOBSV 13:03 → STU 13:03
PROVIDERS: ADMIT Internal Medicine; ATTEND Internal Medicine
DX: T82.898A Other specified complication of vascular prosthetic devices, implants and grafts, initial encounter (principal); J96.10 Chronic respiratory failure, unspecified whether with hypoxia or hypercapnia; E78.5 Hyperlipidemia, unspecified; I12.9 Hypertensive chronic kidney disease with stage 1 through stage 4 chronic kidney disease, or unspecified chronic kidney disease; E11.22 Type 2 diabetes mellitus with diabetic chronic kidney disease; N18.9 Chronic kidney disease, unspecified; E11.40 Type 2 diabetes mellitus with diabetic neuropathy, unspecified; I67.4 Hypertensive encephalopathy; D50.9 Iron deficiency anemia, unspecified; L89.302 Pressure ulcer of unspecified buttock, stage 2; L89.152 Pressure ulcer of sacral region, stage 2; L89.303 Pressure ulcer of unspecified buttock, stage 3; L89.304 Pressure ulcer of unspecified buttock, stage 4; L89.153 Pressure ulcer of sacral region, stage 3; L89.154 Pressure ulcer of sacral region, stage 4; Z86.73 Personal history of transient ischemic attack (TIA), and cerebral infarction without residual deficits; M46.28 Osteomyelitis of vertebra, sacral and sacrococcygeal region; Z93.0 Tracheostomy status; Z87.2 Personal history of diseases of the skin and subcutaneous tissue; R56.9 Unspecified convulsions; I25.10 Atherosclerotic heart disease of native coronary artery without angina pectoris; J84.10 Pulmonary fibrosis, unspecified; N31.9 Neuromuscular dysfunction of bladder, unspecified; Z87.440 Personal history of urinary (tract) infections; Z93.3 Colostomy status; R13.10 Dysphagia, unspecified
CPT/HCPCS: 82962; 87070; 87186; 87205; 94002; C1751; G0378; 94640